=== PATIENT | female | born 1965 | race Caucasian/White ===

== ENCOUNTER 2019-08-10 15:00 | Outpatient (RCR) | payer OTHER, SELFPAY ==
--- NOTE | 2019-07-10 15:18 | PCCPR ---
Marlys called this morning and will be absent due to elevated blood sugar, she stated that her blood sugar was greater than 400 today.
--- NOTE | 2019-07-13 14:58 | PCCPR ---
TAYLOR Frankel called off states she just left her MD and her BS is 343 too high to exercise.
--- NOTE | 2019-07-17 15:11 | PCCPR ---
Absent today, not feeling well.
--- NOTE | 2019-07-24 14:21 | PCCPR ---
Marlys called and said that she will not be able to make it today because her blood sugar is 325, she also has a sinus infection and has an appointment with her doctor Wednesday.
--- NOTE | 2019-08-02 17:03 | PCCPR ---
Marlys not unable to attend today due to blood sugar of 355.
--- NOTE | 2019-08-07 14:13 | PCCPR ---
Absent due to illness elevated BS and she has a sinus infection.
--- NOTE | 2019-08-15 08:12 | PCCPR ---
Marlys called this morning unsure of when she will be able to return. Marlys's grandmother, whom she cares for, is dying and she would like to spend her last days together. Marlys said that it may be after [place] before she returns.
--- NOTE | 2019-08-16 10:54 | PCCPR ---
Absent today & tomorrow-Grandmother last night in her sleep. Plans to be back Wednesday but will keep us posted.
--- NOTE | 2019-08-21 18:18 | PCCPR ---
Marlys called today and said that she was admitted to the hospital recently with chest pain. She was kept overnight and was told that her pain was not cardiac related but could be GI. Marlys is aware that she needs a release to return and is to follow up with Dr. Montalvo next week. She plans to return after the new year with a release.
--- NOTE | 2019-08-31 18:36 | PCCPR ---
Gopal'd from the hospital Marlys called today state was dc'd from the [facility] on 08/29/19. She is now scheduling her out pt apts. She was told she now has stage 3 CKD. In addition to her diabetes CAD and CHF. States she has been feeling depressed with her Grandmother passing away and her continued health challenges. She still is not certain if she will need to move out of the home she currently lives. It was her grandmothers home and income to help support her. Explained we would call her if we receive a release for her to resume rehab. Requested she let us know if she see's her MD and obtain's a release to return.
--- NOTE | 2019-09-06 10:46 | PCCPR ---
Pt called and has an MD apt on 09/12/2019, they will send a release for CR after the apt.
--- NOTE | 2019-09-13 13:53 | PCCPR ---
Marlys called to let us know that it may be another month before she will be able to return. Marlys stated that she does not have kidney disease but may have a problem with her heart valve. She has and appointment with a lease purchase truck driver toward the end of the month and will know more at that time. Will place on hold until we hear otherwise.
--- NOTE | 2019-11-07 09:55 | PCCPR ---
BEVERLY DISCHARGED FROM PROGRAM DUE TO PERSONAL REASONS AND HER INABILITY TO ATTEND.
== END 2019-08-10 23:59 | disposition home or self-care (01) ==
LOC: ANHCPREHAB 15:00
PROVIDERS: Visit Provider Specialist
DX: I25.2 Old myocardial infarction (principal)
CPT/HCPCS: 93798

== ENCOUNTER 2019-10-12 03:23 | Observation (INO) | payer OTHER, SELFPAY ==
[2019-10-12] VITALS (13 sets, daily range): BP systolic 101–133; BP diastolic 47–98; PULSE 75–96; RESP 18–24; TEMP 36.1–36.8; O2SAT 95–100; BMI 30.2
--- NOTE | ~2019-10-12 | XR_ITS ---
EXAMINATION: XR chest 2V DATE: 10/12/2019 04:45 INDICATION: Chest pain TECHNIQUE: PA and lateral views of the chest were obtained. COMPARISON: Chest radiograph dated 08/23/[address] dated 08/20/2019 FINDINGS: Cardiomegaly with pulmonary vascular congestion but without olman pulmonary edema. Mild streaky atele ctasis/scarring at the left lung base with paracardial fat pad accounting for pleural-based opacity l eft costophrenic angle. No pleural effusion or pneumothorax. Median sternotomy wires and mediastinal surgical clips are seen, likely from prior coronary artery bypass grafting. Epicardial pacemaker with 2 leads projecting along the anterior right atrium and 2 along the inferior right ventricle. IMPRESSION: 1. Cardiomegaly with pulmonary vascular congestion but without olman pulmonary edema.. Reviewed, dictated and finalized at location A. 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
--- NOTE | 2019-10-12 03:38 | ED.CHESTPAIN ---
HPI - Chest Pain General Chief Complaint: Chest Pain Stated Complaint: CHEST PAIN Time Seen by Provider: 10/12/19 03:31 Source: patient Mode of arrival: EMS Limitations: no limitations History of Present Illness HPI narrative: Patient is a 53-year-old female who presents to the emergency department via EMS with complaint of chest pain. Patient states she was sitting on the couch and noticed feeling strange. Patient took her blood sugar and it was 344. Patient decided she would go to bed and reports when she got to bed she noticed pain in the left side of her chest going all the way down her left arm to her fingertips. Patient describes sensation of tightness in her chest and pain in her chest like her previous heart attack . Patient reports chronic history of dyspnea on exertion, but is not experiencing dyspnea currently. She denies any nausea or vomiting. MD complaint: chest pain Pertinent past history: coronary artery disease, prior [place] and CABG Timing of current episode: constant Prior episodes: Yes Onset: during rest Pain location: left chest Pain radiation: left arm Severity: similar to previous episodes Quality: tightness and similar to prior [place] Related Data Home Medications Medication Instructions Recorded Confirmed aspirin [Adult Low Dose Aspirin] 81 mg PO DAILY 07/05/19 09/15/19 atorvastatin 40 mg PO HS 07/05/19 09/15/19 citalopram 20 mg PO DAILY PRN 07/05/19 09/15/19 clopidogrel [Plavix] 75 mg PO DAILY 07/05/19 09/15/19 ergocalciferol (vitamin D2) 50,000 unit PO WEEKLY 07/05/19 09/15/19 [Vitamin D2] nitroglycerin [Nitrostat] 0.4 mg SUBLINGUAL Q5-15M PRN 07/05/19 09/15/19 pantoprazole 40 mg PO BID 07/05/19 09/15/19 Basaglar KwikPen U-100 Insulin 15 unit SUBCUT HS 08/20/19 09/15/19 glimepiride 4 mg PO BID 08/20/19 09/15/19 ropinirole 2 mg PO TID 08/20/19 09/15/19 Allergies Allergy/AdvReac Type Severity Reaction Status Date / Time azithromycin Allergy Severe Gastrointestinal Verified 08/24/19 02:48 Upset Review of Systems Review of Systems: All systems reviewed & are unremarkable except as noted in HPI and below Cardiovascular: Cardiovascular: Reports chest pain and Reports dyspnea on exertion Gastrointestinal: Gastrointestinal: Denies nausea and Denies vomiting [facility] Past Medical History Medical History Anemia Anxiety Arthritis CAD (coronary artery disease) Chest pain CHF (congestive heart failure) Depression Diabetes mellitus DVT prophylaxis Dyspepsia GERD (gastroesophageal reflux disease) Headache History of angina History of blood transfusion HLD (hyperlipidemia) HTN (hypertension) Morbid obesity Myocardial infarction x2 OCD (obsessive compulsive disorder) Pacemaker Peripheral neuropathy Previous known suicide attempt Renal disease Seasonal allergies UTI (urinary tract infection) Surgical History Surgical History H/O angioplasty H/O cardiac catheterization H/O heart artery stent History of History of sternectomy Repaired hole in heart Hx of CABG Social History Social History Smoking status: Never smoker Alcohol intake: never Substance use: never Substance use type: does not use Gender identity (if verbalized by the patient): Female Spiritual care concerns: No Agree to blood products: Yes Exam Const: General: cooperative, no acute distress and alert Nutritional Appearance: obese Orientation/consciousness: patient oriented x3 Limitations: no limitations HENMT: Mouth: Yes lip normal and Yes moist mucous membranes Resp: Effort & Inspection: normal respiratory effort Auscultation: clear to auscultation bilaterally Cardio: Rate: regular rate Rhythm: regular rhythm GI: GI Palp: Yes Soft to palpation and No Tenderness to palpation present (GI) Auscultation: normal b
--- NOTE | 2019-10-12 03:39 | ECG_ITS ---
Measurements Intervals [place] Rate: 91 P: [place]: 0 QRS: -52 QRSD: 146 T: 116 QT: 407 QTc: 501 Interpretive Statements ATRIAL SENSE- ELECTRONIC VENTRICULAR PACEMAKER ATRIAL PREMATURE COMPLEXES BASELINE ARTIFACT- I, III, AVR, AVL ATYPICAL ECG Electronically Signed On 10-12-2019 7:04:39 BUS GREASER by Armando Goff D.O.
--- NOTE | 2019-10-12 03:55 | PC.NURSE ---
pt given 1 nitro at this time. rating chest pain 9/10
--- NOTE | 2019-10-12 04:01 | PC.NURSE ---
pt given 2nd nitro at this time. rating pain a 4/10 at this time.
--- NOTE | 2019-10-12 04:07 | PC.NURSE ---
pt reporting pain a 0/10 at this time.
[2019-10-12 04:26] LABS: Basophils Percent Auto 0.4 % (0.2-1.2); Eosinophils Absolute Auto 0.1 K/mm3 (0-0.3); Eosinophils Percent Auto 2.1 % (0-4.4); Immature Granulocyte Absolute 0.01 K/mm3 (0.00-0.031); Immature Granulocyte Percent A 0.2 % (0-0.5); Lymphocytes Absolute Auto 0.87 K/mm3 (0.9-3.2); Lymphocytes Percent Auto 18.3 % (18.3-44.2); Mean Corpuscular HGB Conc 30.8 g/dl (32-36); Mean Corpuscular Hemoglobin 25.5 pg (26-34); Mean Platelet Volume 10.5 fl (7.4-10.4); Monocytes Absolute Auto 0.4 K/mm3 (0.1-0.6); Monocytes Percent Auto 8.8 % (2.6-8.5); Neutrophils Absolute Auto 3.3 K/mm3 (1.3-6.7); Neutrophils Percent Auto 70.2 % (45.5-73.1); Platelet Count Result 252 k/mm3 (150-375); White Blood Count 4.8 K/mm3 (4.5-10.0)
[2019-10-12 04:37] LABS: INR 0.9; Prothrombin Time 11.4 Seconds (11.1-14.7)
[2019-10-12 04:39] LABS: Alanine Aminotransferase 18 U/L (4-35); Alkaline Phosphatase 154 U/L (38-126); Aspartate Amino Transferase 20 U/L (14-36); Bilirubin,Total 0.4 mg/dL (0.2-1.3); Blood Urea Nitrogen 22 mg/dL (7-17); Calcium 8.8 mg/dL (8.4-10.2); Carbon Dioxide 23 mmol/L (22-30); Chloride 98 mmol/L (98-107); Estimated Glomerular Filt Rate 58; Glucose 374 mg/dL (65-105); Lipase 85 U/L (23-300); Potassium 4.4 mmol/L (3.4-5.0); Sodium 136 mmol/L (137-145)
[2019-10-12 04:51] LABS: NT Pro B Type Natriuretic Pept 285 PG/ML (5-100); Troponin I < 0.012 ng/mL (0.000-0.034)
[2019-10-12] MEDS: NITROGLYCERIN OINTMENT 1 INCH DOSE TRANSDERM (05:56)
--- NOTE | 2019-10-12 06:45 | ADMGEN ---
This patient, Marlys Rai, was admitted to IMU Room 211-01. Patient/family oriented to hospital policies and general routines including ID bracelet, bed and alarms, visiting hours, pain management, procedures, bathroom and other care routines, personal items, smoking policy, room service/diet, and visiting hours. Valuables list has been completed. Information on how to activate the Rapid Response Team has been discussed. Patient/Family are encouraged to report perceived risks to care and to ask questions if they do not understand what they are told or what they should do.
[2019-10-12 06:59] LABS: Glucose Point of Care 232 (65-105)
[2019-10-12 07:45] LABS: Troponin I 0.024 ng/mL (0.000-0.034)
[2019-10-12 10:52] LABS: Troponin I 0.059 ng/mL (0.000-0.034)
--- NOTE | 2019-10-12 10:54 | PM.IMHP ---
H&P: HPI History of Present Illness Chief complaint: CHEST PAIN Narrative: Date of visit 999 Marlys Rai is a 53 year old hypertensive type 2 diabetic white female status post biventricular pacer for AV block and history of mitral stenosis and CHF who presented to the emergency room with complaints of chest pain. States she is getting reactive to out of bed last evening when she developed the pressure to sharp sensation across her upper chest radiating to her left arm. She she had no associated shortness of breath nausea or diaphoresis but stated that the discomfort was the same as she had she had her stent placed originally. She got nervous and did not take her nitro and came to the emergency room and pain resolved here. She admits to being very anxious. Initial troponin was negative. Cardiac catheterization 05/18 essentially normal with exception of a diagonal branch of the LAD which had previously been stented and was occluded. It was unable to be opened at that time. She had a ADARSH in August of this year which revealed moderate mitral stenosis with ejection fraction 55%. Review of Systems Review of Systems: Narrative: Constitutional she says she is slowly getting weights that know how much appetite is fine Eye no double vision [place] Mouth of pharyngitis laryngitis Pulmonary no shortness breath wheezing or cough CV as per present illness no palpitation and no pedal edema she has been fighting [place] infection is had some dysuria GI no melena medication diarrhea Muscle skeletal no particular joint discomfort Integument no skin breakdown in this the rash around her perineal and groin Psych admits to being depressed and anxious PMFSH Past Medical History Medical History Anemia Anxiety Arthritis CAD (coronary artery disease) Chest pain CHF (congestive heart failure) Depression Diabetes mellitus DVT prophylaxis Dyspepsia GERD (gastroesophageal reflux disease) Headache History of angina History of blood transfusion HLD (hyperlipidemia) HTN (hypertension) Morbid obesity Myocardial infarction x2 OCD (obsessive compulsive disorder) Pacemaker Peripheral neuropathy Previous known suicide attempt Renal disease Seasonal allergies UTI (urinary tract infection) Surgical History Surgical History H/O angioplasty H/O cardiac catheterization H/O heart artery stent History of History of sternectomy Repaired hole in heart Hx of CABG Social History Social History Smoking status: Never smoker Alcohol intake: never Substance use: never Substance use type: does not use Gender identity (if verbalized by the patient): Female Spiritual care concerns: No Agree to blood products: Yes Meds Home Medications and Allergies Home Medications Medication Instructions Recorded Confirmed Type aspirin [Adult Low Dose Aspirin] 81 mg PO DAILY 07/05/19 10/12/19 History atorvastatin 40 mg PO DAILY 07/05/19 10/12/19 History citalopram 20 mg PO DAILY PRN 07/05/19 10/12/19 History clopidogrel [Plavix] 75 mg PO DAILY 07/05/19 10/12/19 History nitroglycerin [Nitrostat] 0.4 mg SUBLINGUAL Q5-15M PRN 07/05/19 10/12/19 History pantoprazole 40 mg PO BID 07/05/19 10/12/19 History Basaglar KwikPen U-100 Insulin 15 unit SUBCUT HS 08/20/19 10/12/19 History glimepiride 4 mg PO BID 08/20/19 10/12/19 History ropinirole 2 mg PO TID 08/20/19 10/12/19 History lisinopril 2.5 mg PO QAM 30 Days #30 tablet 08/29/19 10/12/19 Rx ferrous sulfate 325 mg PO DAILY 10/12/19 10/12/19 History magnesium oxide 400 mg PO DAILY 10/12/19 10/12/19 History metoprolol tartrate 25 mg PO BID 10/12/19 10/12/19 History Allergies Allergy/AdvReac Type Severity Reaction Status Date / Time azithromycin Allergy Severe Gastrointestinal Verified 08/24/19 02:48 Upset Vital
[2019-10-12 12:20] LABS: Glucose Point of Care 181 (65-105)
--- NOTE | 2019-10-12 15:32 | PM.CNCAR ---
Assessment and Plan Assessment and plan (1) Chest pain: Qualifiers: Chest pain type: unspecified Qualified Code(s): R07.9 - Chest pain, unspecified Code(s): R07.9 - Chest pain, unspecified Status: Acute Assessment and Plan: Atypical chest pain with patient history of known coronary disease previous diagonal branch stent, last catheterization showed occluded stent but the attempted angioplasty was not successful due to small size vessel, she does not seem to have acute event at this time, she has slight elevation of troponin but not Sparkle to indicate any major event, will continue with aspirin and Plavix, p.r.n. nitroglycerin for chest pain. (2) Hypomagnesemia: Code(s): E83.42 - Hypomagnesemia Status: Acute (3) Chronic kidney disease, stage 3: Code(s): N18.3 - Chronic kidney disease, stage 3 (moderate) Status: Chronic (4) CHF (congestive heart failure): Qualifiers: Heart failure chronicity: acute Heart failure type: unspecified Qualified Code(s): I50.9 - Heart failure, unspecified Code(s): I50.9 - Heart failure, unspecified Status: Acute Assessment and Plan: She has history of known mitral valve stenosis last ADARSH showed moderate level of narrowing, medical treatment and close follow-up (5) CAD (coronary artery disease): Qualifiers: Coronary Disease-Associated Artery/Lesion type: ramona artery [place] vs. transplanted heart: ramona heart Associated angina: without angina Qualified Code(s): I25.10 - Atherosclerotic heart disease of ramona coronary artery without angina pectoris Code(s): I25.10 - Atherosclerotic heart disease of ramona coronary artery without angina pectoris Status: Chronic Additional Plan She seems to be stable from cardiac standpoint okay to be discharged home to follow up with me in 1 week. She has to take nitroglycerin p.r.n. for chest pain History of Present Illness History of Present Illness Consult date/time: 10/12/19 15:32 53 years old lady with history of diabetes mellitus, history of sick sinus syndrome status post pacemaker placement, history of mitral valve stenosis, and history of coronary disease previous diagonal branch stent, came to the hospital because of episode of chest pain at home. Start having heaviness the chest all the sudden yesterday lasted for about few minutes but I am sure after the hospital she was pain-free. Noted to have slightly elevated troponin, previously she had episode of chest pain and repeat cardiac catheterization showed totally occluded small diagonal branch with occluded stent with a smaller vessel, at that time attempted angioplasty were attempted and was not successful due to the small size of the vessel. Currently she is pain-free she feels well no significant shortness of breath. No dizziness no lightheadedness, no palpitation. She has history of known moderate mitral valve stenosis, ADARSH recently showed valve area of 1.2 centimeter squared, with mild pulmonary hypertension. She has mild leg swelling but no recent changes no orthopnea Reason For Visit: CHEST PAIN Review of Systems Constitutional: Constitutional: Reports fatigue and Reports lethargy Cardiovascular: Cardiovascular: Reports as per HPI Respiratory: Respiratory: Reports dyspnea Gastrointestinal: Gastrointestinal: Reports as per HPI [facility] Past Medical History Medical History Anemia Anxiety Arthritis CAD (coronary artery disease) Chest pain CHF (congestive heart failure) Depression Diabetes mellitus DVT prophylaxis Dyspepsia GERD (gastroesophageal reflux disease) Headache History of angina History of blood transfusion HLD (hyperlipidemia) HTN (hypertension) Morbid obesity Myocardial infarction x2 OCD (obsessive compulsive disorder) Pacemaker Peripheral neuropathy Previous known suicide attempt Renal disease Seasonal allergies
[2019-10-12] MEDS: ATORVASTATIN 20 MG TABLET 40 MG PO (15:49)
[2019-10-12] MEDS: ASPIRIN 81 MG ENTERIC TABLET PO (15:49)
[2019-10-12] MEDS: CLOPIDOGREL BISULFATE 75 MG TABLET PO (15:49)
[2019-10-12] MEDS: lisinopriL 2.5 MG TABLET PO (15:49)
[2019-10-12] MEDS: METOPROLOL TARTRATE 25 MG TABLET PO (15:50)
[2019-10-12] MEDS: FLUCONAZOLE 150 MG TABLET PO (15:51)
[2019-10-12] MEDS: PANTOPRAZOLE 40 MG TABLET PO (15:51)
--- NOTE | 2019-10-14 17:19 | PM.DS ---
DS: Diagnosis Admitting Diagnosis Admitting Diagnosis: Chest pain, unspecified Discharge Diagnosis (1) Chest pain: Qualifiers: Chest pain type: unspecified Qualified Code(s): R07.9 - Chest pain, unspecified Code(s): R07.9 - Chest pain, unspecified Status: Acute Assessment and Plan: Initial troponin is negative but 2nd 3rd have slowly risen. EKG paced rhythms and there was no change there. Her last cardiac catheterization was fairly benign other than occluded stent but with rising troponin got opinion from Cardiology and they felt was atypical non cardiac pain Continue beta-sangeetha ESTELLE-inhibitor statin and aspirin nitro prn also. (2) HTN (hypertension): Qualifiers: Hypertension type: essential hypertension Qualified Code(s): I10 - Essential (primary) hypertension Code(s): I10 - Essential (primary) hypertension Status: Chronic Assessment and Plan: Pressure well controlled continue her beta-sangeetha and ESTELLE-inhibitor (3) CHF (congestive heart failure): Qualifiers: Heart failure chronicity: acute Heart failure type: unspecified Qualified Code(s): I50.9 - Heart failure, unspecified Code(s): I50.9 - Heart failure, unspecified Status: Acute Assessment and Plan: compensated at present time continue the beta-sangeetha and ESTELLE-inhibitor (4) Diabetes mellitus: Qualifiers: Diabetes mellitus type: type 2 Diabetes mellitus ferry terminal supervisor insulin use: with ferry terminal supervisor use Diabetes mellitus complication status: without complication Qualified Code(s): E11.9 - Type 2 diabetes mellitus without complications; Z79.4 - prison (current) use of insulin Code(s): E11.9 - Type 2 diabetes mellitus without complications Status: Chronic Assessment and Plan: Blood sugar slightly elevated as has been. Continue the long-acting insulin (5) GERD (gastroesophageal reflux disease): Qualifiers: Esophagitis presence: esophagitis presence not specified Qualified Code(s): K21.9 - Gastro-esophageal reflux disease without esophagitis Code(s): K21.9 - Gastro-esophageal reflux disease without esophagitis Status: Chronic Assessment and Plan: Continue PPI (6) Morbid obesity: Code(s): E66.01 - Morbid (severe) obesity due to excess calories Status: Chronic Assessment and Plan: Encourage weight loss DS: Summary Hospital Course Hospital Course: 53-year-old type 2 diabetic with known mild coronary disease admitted with chest pain that was atypical. Had mild bump in her troponin but her previous anatomy was benign except for a 2nd diagonal which was occluded. Seen by Cardiology and felt the pain was atypical and suggest to continue on her usual cardiac meds She will follow-up with cardiology Time Spent with Patient Time attestation: Total time spent providing and/or coordinating discharge services: 35 minutes Exam Narrative: Exam Narrative: Condition on discharge Blood pressure 104/70 pulse is 80 Lungs are clear CV regular rate rhythm no murmurs Abdomen benign Extremities without edema good distal pulses No further chest pain taken and diet well up and about independently Discharge Plan Discharge Attending physician on discharge: Maxim Burdick Consulting providers: Reza Montalvo Discharging Clinician: Maxim Burdick Patient Disposition: Home, Self-Care Activity: as tolerated Diet: diabetic, low sodium and low cholesterol Patient Instructions: Antibiotic Form Stand Alone Forms: General Discharge Information Follow-up/Referrals: Reza Montalvo MD [Physician] - Keep Reg. Scheduled Appt. UNKNOWN,DOCTOR [Primary Care Provider] - 2 Weeks (primary) Discharge Medications: New tolnaftate 1 % Powder 1 applic topical Q12HR Qty: 60 RF: 0 Continued atorvastatin 20 mg Tablet 40 mg PO DAILY RF: 0 clopidogrel [Plavix] 75 mg Tablet
== END 2019-10-12 16:23 | disposition home or self-care (01) ==
LOC: ANHED 03:44 → ANHIMU 06:37
PROVIDERS: Admitting Provider Hospitalist; Emergency Provider Emergency Medicine; Visit Provider Internal Medicine
DX: R07.89 Other chest pain (principal); I13.0 Hypertensive heart and chronic kidney disease with heart failure and stage 1 through stage 4 chronic kidney disease, or unspecified chronic kidney disease; E11.22 Type 2 diabetes mellitus with diabetic chronic kidney disease; N18.3 Chronic kidney disease, stage 3 (moderate); I50.9 Heart failure, unspecified; I05.0 Rheumatic mitral stenosis; I25.10 Atherosclerotic heart disease of native coronary artery without angina pectoris; I25.2 Old myocardial infarction; E83.42 Hypomagnesemia; E11.42 Type 2 diabetes mellitus with diabetic polyneuropathy; K21.9 Gastro-esophageal reflux disease without esophagitis; E66.01 Morbid (severe) obesity due to excess calories; Z68.30 Body mass index [BMI] 30.0-30.9, adult; E78.5 Hyperlipidemia, unspecified; Z95.5 Presence of coronary angioplasty implant and graft; Z79.82 Long term (current) use of aspirin; Z79.899 Other long term (current) drug therapy; Z79.4 Long term (current) use of insulin; Z95.0 Presence of cardiac pacemaker; Z95.1 Presence of aortocoronary bypass graft
CPT/HCPCS: 36415; 71046; 80053; 83690; 83880; 84484; 85025; 85610; 85730; 93005; 99285; A9270; G0378; G0379

== ENCOUNTER 2019-11-14 08:55 | Emergency (ER) | payer OTHER, SELFPAY ==
--- NOTE | ~2019-11-14 | XR_ITS ---
EXAMINATION: XR chest 2V EXAM DATE: 11/14/2019 10:35 INDICATION: Cough, wheezing. TECHNIQUE: Frontal and lateral projections of the chest obtained and reviewed. Comparison is made to prior examination from 10/12/2019. FINDINGS: Sternotomy wires are present without findings to suggest sternal dehiscence. The lungs are clear. There are no pleural effusions. There is mild cardiomegaly. Cardiac device with leads. There is no pneumothorax suspected. The bones and soft tissues are unremarkable. IMPRESSION: Mild cardiomegaly. Reviewed, dictated and finalized at location A. IMPRESSION: Mild cardiomegaly.
[2019-11-14 09:08] VITALS: BP 127/75; PULSE 96; RESP 18; TEMP 36.4; O2SAT 97
[2019-11-14 09:15] VITALS: O2SAT 99
--- NOTE | 2019-11-14 10:11 | ECG_ITS ---
Measurements Intervals [place] Rate: 75 P: 15 [place]: 199 QRS: -50 QRSD: 181 T: 97 QT: 469 QTc: 525 Interpretive Statements ELECTRONIC ATRIAL PACEMAKER WITH INHIBITION ELECTRONIC VENTRICULAR PACEMAKER BASELINE ARTIFACT- I, II, III, AVR, AVL NO FURTHER INTERPRETATION IS POSSIBLE ATYPICAL ECG Electronically Signed On 11-14-2019 10:37:04 CDT by rAmando Goff D.O.
--- NOTE | 2019-11-14 10:11 | ED.GENADULT ---
HPI - General Adult General Chief complaint: Upper Respiratory Infection Stated complaint: EARACHE/WHEEZING Time Seen by Provider: 11/14/19 09:18 History of Present Illness HPI narrative: This is a 53-year-old female who presents the emergency department for complaint of I feel like I have congestive heart failure and pneumonia in both my ears hurt . Patient reports a 3-day history of audible wheezing, productive cough of brown sputum, bilateral ear pain, sore throat, rhinorrhea. She denies any fever or chills, difficulty breathing, edema to the lower extremities, chest pain. Related Data Home Medications Medication Instructions Recorded Confirmed aspirin [Adult Low Dose Aspirin] 81 mg PO DAILY 07/05/19 10/12/19 atorvastatin 40 mg PO DAILY 07/05/19 10/12/19 citalopram 20 mg PO DAILY PRN 07/05/19 10/12/19 clopidogrel [Plavix] 75 mg PO DAILY 07/05/19 10/12/19 nitroglycerin [Nitrostat] 0.4 mg SUBLINGUAL Q5-15M PRN 07/05/19 10/12/19 pantoprazole 40 mg PO BID 07/05/19 10/12/19 Basaglar KwikPen U-100 Insulin 15 unit SUBCUT HS 08/20/19 10/12/19 glimepiride 4 mg PO BID 08/20/19 10/12/19 ropinirole 2 mg PO TID 08/20/19 10/12/19 ferrous sulfate 325 mg PO DAILY 10/12/19 10/12/19 magnesium oxide 400 mg PO DAILY 10/12/19 10/12/19 metoprolol tartrate 25 mg PO BID 10/12/19 10/12/19 Allergies Allergy/AdvReac Type Severity Reaction Status Date / Time azithromycin Allergy Severe Gastrointestinal Verified 11/14/19 09:10 Upset Review of Systems Review of Systems: Narrative: CONSTITUTIONAL: Denies fever, chills, or sweats. EYES: Denies visual changes, redness, or discharge. ENT: reports rhinorrhea,intermittent sore throat, bilat ear aches. denies changes in hearing or drainage from ears. CARDIOVASCULAR: Denies chest pain, palpitations, or edema. RESPIRATORY: Reports cough, denies SOB, reports hearing self wheeze. GASTROINTESTINAL: Denies abdominal pain or diarrhea. Reports nausea without vomiting. GENITOURINARY: Denies dysuria or hematuria. SKIN: Denies rash or itching. MUSCULOSKELETAL: Denies back pain, joint pain, or myalgias. NEUROLOGIC: Denies headache, numbness, or weakness. PSYCHIATRIC: Hx anxiety and depression. ON LICENSE OF [facility] Past Medical History Medical History Anemia Anxiety Arthritis CAD (coronary artery disease) Chest pain CHF (congestive heart failure) Depression Diabetes mellitus DVT prophylaxis Dyspepsia GERD (gastroesophageal reflux disease) Headache History of angina History of blood transfusion HLD (hyperlipidemia) HTN (hypertension) Morbid obesity Myocardial infarction x2 OCD (obsessive compulsive disorder) Pacemaker Peripheral neuropathy Previous known suicide attempt Renal disease Seasonal allergies UTI (urinary tract infection) Surgical History Surgical History H/O angioplasty H/O cardiac catheterization H/O heart artery stent History of History of permanent cardiac pacemaker placement History of sternectomy Repaired hole in heart Hx of CABG S/P VSD closure Family History Family History Mother Peripheral vascular disease Social History Social History Smoking status: Never smoker Alcohol intake: never Substance use: never Substance use type: does not use Gender identity (if verbalized by the patient): Female Spiritual care concerns: No Agree to blood products: Yes Exam Narrative: Exam Narrative: GENERAL: Well-appearing, well-nourished, and in no acute distress. HEAD: Normocephalic, atraumatic. EYES: sclera anicteric, no drainage ENT: Nares clear, minimum clear rhinorrhea bilat. Mucous membranes moist. TTP over frontal sinuses. Bilat TMs without erythema/retraction, mild bulging RT TM. Landmarks visualized bilat. NECK: Supple. No LAD CHEST: C
[2019-11-14 10:43] VITALS: BP 107/57; PULSE 78; RESP 16; O2SAT 97
--- NOTE | 2019-11-14 11:00 | PC.NURSE ---
PT REPORT GIVEN TO JOHN SAWYER AT THIS TIME, SHE HAS ASSUMED PT CARE.
[2019-11-14] MEDS: ONDANSETRON HCL ODT 4 MG TABLET PO (11:06)
[2019-11-14 11:51] VITALS: BP 109/80; PULSE 89; RESP 19; O2SAT 100
== END 2019-11-14 11:53 | disposition home or self-care (01) ==
DX: J01.90 Acute sinusitis, unspecified (principal); B97.89 Other viral agents as the cause of diseases classified elsewhere; D64.9 Anemia, unspecified; M19.90 Unspecified osteoarthritis, unspecified site; I25.10 Atherosclerotic heart disease of native coronary artery without angina pectoris; I11.0 Hypertensive heart disease with heart failure; I50.9 Heart failure, unspecified; E11.9 Type 2 diabetes mellitus without complications; K21.9 Gastro-esophageal reflux disease without esophagitis; E78.5 Hyperlipidemia, unspecified; F32.9 Major depressive disorder, single episode, unspecified; F41.9 Anxiety disorder, unspecified; I25.2 Old myocardial infarction; E66.01 Morbid (severe) obesity due to excess calories; Z68.34 Body mass index [BMI] 34.0-34.9, adult; F42.9 Obsessive-compulsive disorder, unspecified; N28.9 Disorder of kidney and ureter, unspecified; Z95.0 Presence of cardiac pacemaker; Z87.440 Personal history of urinary (tract) infections; Z95.5 Presence of coronary angioplasty implant and graft; Z95.1 Presence of aortocoronary bypass graft; Z79.82 Long term (current) use of aspirin; Z79.4 Long term (current) use of insulin; Z79.02 Long term (current) use of antithrombotics/antiplatelets
CPT/HCPCS: 71046; 93005; 99283; A9270

== ENCOUNTER 2020-01-13 11:00 | Inpatient (IN) | payer OTHER, SELFPAY ==
--- NOTE | ~2020-01-13 | CT_ITS ---
EXAMINATION: CTA brain carotid DATE: 01/17/2020 18:33 INDICATION: Suspected transient ischemic attack TECHNIQUE: Computed tomographic angiography (CTA) of the head was performed without and with 100 mL O mnipaque-350 intravenous contrast. CTA of the neck was performed with intravenous contrast. The dose- length product was 1719.35 mGy-cm. Maximum intensity projection and volume rendered 3D-reconstruction s were created by the technologist on a separate workstation. Automated exposure control and iterativ e reconstruction technique were employed. COMPARISON: None. FINDINGS: HEAD CTA: There is no intracranial hemorrhage, acute infarction, or abnormal mass lesion. The ventri cles are normal. There is no abnormal mass effect or midline shift. The [place]-white matter differentia tion is normal. The basal cisterns are patent. The orbits are normal. The paranasal sinuses, mastoids and calvarium are normal. There is no significant stenosis of the basilar artery or posterior cerebral arteries. There is no si gnificant stenosis of the intracranial internal carotid arteries or the anterior or middle cerebral a rteries. The anterior communicating artery and posterior communicating arteries are normal. There is no aneurysm. The right vertebral artery is hypoplastic. NECK CTA: The neck soft tissues are normal. The right vertebral artery is hypoplastic compared to the left. There are no pathologically enlarged lymph nodes. The visualized lung apices are clear. There is 0% stenosis of the proximal right internal carotid artery relative to normal distal artery l umen diameter (NASCET criteria). There is 0% stenosis of the proximal left internal carotid artery re lative to normal distal artery lumen diameter. IMPRESSION: 1. No acute intracranial abnormality. Normal head CTA. 2. 0% stenosis of the proximal right internal carotid artery relative to normal distal artery lumen d iameter (NASCET criteria). 3. 0% stenosis of the proximal left internal carotid artery relative to normal distal artery lumen di ameter. Reviewed, dictated and finalized at location A. IMPRESSION: 1. No acute intracranial abnormality. Normal head CTA. 2. 0% stenosis of the proximal right internal carotid artery relative to normal distal artery lumen diameter (NASCET criteria). 3. 0% stenosis of the proximal left internal carotid artery relative to normal distal artery lumen diameter.
--- NOTE | ~2020-01-13 | CT_ITS ---
EXAMINATION: CT facial bones w con DATE: 01/13/2020 13:07 INDICATION: Right-sided facial swelling TECHNIQUE: Computed tomography (CT) of the facial bones and maxillofacial region was performed with 7 5 cc of Omnipaque 350 intravenous contrast. The dose-length product (DLP) was 502.72 mGy-cm. Automate d exposure control and iterative reconstruction technique were employed. COMPARISON: None. FINDINGS: There is mild asymmetric enlargement of the right parotid gland when compared to the left. Subtle edematous stranding is seen adjacent to the right parotid gland as well. There is an increase in size of nonpathologically enlarged lymph nodes in and adjacent to the right parotid gland. No absc ess or phlegmon is identified. Mildly prominent right internal jugular chain lymph node is also noted . The airway is patent. The osseous structures are unremarkable. There is partial opacification of th e right mastoid air cells. The orbits are unremarkable. IMPRESSION: 1. Mild asymmetric enlargement of the right parotid gland compared to the left, likely reflecting par otiditis. Reviewed, dictated and finalized at location A. IMPRESSION: 1. Mild asymmetric enlargement of the right parotid gland compared to the left, likely reflecting parotiditis.
[2020-01-13 11:27] VITALS: BP 119/83; PULSE 92; RESP 12; TEMP 37.2; O2SAT 100
[2020-01-13] MEDS: SODIUM CHLORIDE 0.9% IV 1,000 ML 999 ML IV CONT (11:46)
--- NOTE | 2020-01-13 11:54 | ED.GENADULT ---
HPI - General Adult General Chief complaint: Wound/Laceration <NYA Lamar Last Filed: 01/13/20 14:06> Stated complaint: WOUND TO FACE <NYA Lamar Last Filed: 01/13/20 14:06> Time Seen by Provider: 01/13/20 11:04 <NYA Lamar Last Filed: 01/13/20 14:06> Source: patient <NYA Lamar Last Filed: 01/13/20 14:06> Mode of arrival: ambulatory <NYA Lamar Last Filed: 01/13/20 14:06> Limitations: no limitations <NYA Lamar Last Filed: 01/13/20 14:06> History of Present Illness HPI narrative: Patient in the room presenting with facial swelling for the last couple of days localized to the right cheek noting moderate aching pain worse with this morning noting red tender swollen area to the right cheek worse with palpation patient also notes an episode of emesis this morning. Patient denies similar occurrence in the past. <NYA Lamar Last Filed: 01/13/20 14:06> Related Data Home medications: Home Medications Medication Instructions Recorded Confirmed aspirin [Adult Low Dose Aspirin] 81 mg PO DAILY 07/05/19 01/13/20 atorvastatin 40 mg PO DAILY 07/05/19 01/13/20 citalopram 20 mg PO DAILY 07/05/19 01/13/20 clopidogrel [Plavix] 75 mg PO DAILY 07/05/19 01/13/20 nitroglycerin [Nitrostat] 0.4 mg SUBLINGUAL Q5-15M PRN 07/05/19 01/13/20 pantoprazole 40 mg PO BID 07/05/19 01/13/20 Basaglstefania Castillo U-100 Insulin 15 unit SUBCUT HS 08/20/19 01/13/20 glimepiride 4 mg PO BID 08/20/19 01/13/20 ropinirole 2 mg PO TID 08/20/19 01/13/20 magnesium oxide 400 mg PO DAILY 10/12/19 01/13/20 metoprolol tartrate 25 mg PO BID 10/12/19 01/13/20 lisinopril 2.5 mg PO DAILY 01/13/20 01/13/20 <Pedro Kirk PA-C - Last Filed: 01/13/20 14:06> Allergies/adverse reactions: Allergies Allergy/AdvReac Type Severity Reaction Status Date / Time azithromycin Allergy Severe Gastrointestinal Verified 11/14/19 09:10 Upset <Pedro Kirk PA-C - Last Filed: 01/13/20 14:06> Review of Systems Review of Systems: All systems reviewed & are unremarkable except as noted in HPI and below <Pedro Kirk PA-C - Last Filed: 01/13/20 14:06> [facility] Past Medical History Medical History: Medical History (Updated 01/13/20 @ 16:38 by Kat Monroe PA-C) Anemia With history of blood transfusion. AV block Status post atrial pacemaker insertion. CHF (congestive heart failure) Coronary artery disease (~11/2017) Cardiac catheterization per Dr. Montalvo demonstrated distal 1st diagonal vessel total occlusion status post angioplasty and stent placement. Depression with anxiety Diabetic peripheral neuropathy Eczema Gastroesophageal reflux disease Hyperlipidemia Hypertension Insulin dependent type 2 diabetes mellitus 9.8% in July 2019. Myocardial infarction x2 Osteoarthritis Previous known suicide attempt Restless leg syndrome Seasonal allergies Septal defect Patient on certain whether this was an ASD or VSD repair, done at the age of 39. Valvular heart disease Status post mitral valve repair. ADARSH September 18, 2019 showed moderate to severe mitral valve calcification with decreased movement and evidence of moderate mitral valve regurgitation. Vitamin D deficiency <Pedro Kirk PA-C - Last Filed: 01/13/20 14:06> Surgical History Surgical History: Surgical History (Updated 01/13/20 @ 16:34 by Kat Monroe PA-C) History of History of cardiac catheterization (~11/2017) Status post angioplasty and stent placement to distal 1st diagonal per Dr. Montalvo. History of permanent cardiac pacemaker placement History of sternectomy Repaired hole in heart, patient unsure whether it was in atrial or ventricular septal defect. Hx of CABG S/P VSD closure <Pedro Kirk PA-C - Last Filed: 01/13/20 14:06> Family History Family History: Family History (Updated 12/28
[2020-01-13 11:57] LABS: Basophils Percent Auto 0.2 % (0.2-1.2); Eosinophils Absolute Auto 0.1 K/mm3 (0-0.3); Eosinophils Percent Auto 1.7 % (0-4.4); Hematocrit 40.2 % (37.0-47.0); Hemoglobin 13.2 g/dL (12.0-15.0); Immature Granulocyte Absolute 0.02 K/mm3 (0.00-0.031); Immature Granulocyte Percent A 0.4 % (0-0.5); Lymphocytes Absolute Auto 0.71 K/mm3 (0.9-3.2); Lymphocytes Percent Auto 13.1 % (18.3-44.2); Mean Corpuscular HGB Conc 32.8 g/dl (32-36); Mean Corpuscular Hemoglobin 28.9 pg (26-34); Mean Corpuscular Volume 88.2 fl (80-100); Mean Platelet Volume 10.9 fl (7.4-10.4); Monocytes Absolute Auto 0.5 K/mm3 (0.1-0.6); Monocytes Percent Auto 9.1 % (2.6-8.5); Neutrophils Absolute Auto 4.1 K/mm3 (1.3-6.7); Neutrophils Percent Auto 75.5 % (45.5-73.1); Platelet Count Result 239 k/mm3 (150-375); Red Blood Count 4.56 M/mm3 (4.2-5.4); Red Cell Distribution Width 13.8 % (11.5-14.5); White Blood Count 5.4 K/mm3 (4.5-10.0)
[2020-01-13 12:12] LABS: Alanine Aminotransferase 16 U/L (4-35); Albumin Level 4.2 g/dL (3.5-5.1); Alkaline Phosphatase 144 U/L (38-126); Aspartate Amino Transferase 19 U/L (14-36); Blood Urea Nitrogen 21 mg/dL (7-17); Calcium 8.8 mg/dL (8.4-10.2); Carbon Dioxide 27 mmol/L (22-30); Chloride 101 mmol/L (98-107); Estimated CRCL calculation 60 ml/min; Estimated Glomerular Filt Rate 57; Glucose 244 mg/dL (65-105); Magnesium 1.3 mg/dL (1.6-2.3); Phosphorus 4.8 mg/dL (2.5-4.5); Potassium 4.5 mmol/L (3.4-5.0); Sodium 137 mmol/L (137-145)
[2020-01-13 12:17] LABS: Beta-Hydroxybutyrate/Acetoacetate 0.08 mmol/L (0.02-0.27)
[2020-01-13 12:25] LABS: Glucose Point of Care 220 (65-105)
[2020-01-13] MEDS: MAGNESIUM SULF 2 GM/WATER 50ML 2 GM/50 ML BAG IVPB (12:38)
[2020-01-13 12:54] LABS: Add Urine Microscopic? YES; Appearance Urine Cloudy (Clear); Bacteria Urine Trace /hpf; Bilirubin Urine Negative (Negative); Blood Urine 1+ (Negative); Color Urine Straw (Yellow); Glucose Urine UA Negative (Negative); Ketones Urine Negative (Negative); Leukocyte Esterase Ur Negative LEU/UL (Negative); Mucus Urine Rare /lpf; Nitrate Urine Negative (Negative); Protein Urine Negative (Negative); RBC Urine 0-2 /hpf (0-2); Specific Grav Ur 1.016 (1.001-1.035); Squamous Epithelial Cell Urine Many /hpf (Few); Urobilinogen Urine Negative mg/dL (<2.0); WBC Urine 0-3 /hpf
[2020-01-13] MEDS: FAMOTIDINE 20 MG/2 ML VIAL IV PUSH (13:38)
[2020-01-13] MEDS: SODIUM CHLORIDE 0.9% IV 1,000 ML 500 ML IV CONT (13:38)
[2020-01-13] MEDS: ONDANSETRON INJ 4 MG/2 ML VIAL IV PUSH (13:38)
[2020-01-13 14:37] VITALS: BP 114/74; PULSE 100; RESP 16; O2SAT 99
--- NOTE | 2020-01-13 14:46 | PC.NURSE ---
This patient, Marlys Rai, was admitted to Medical Room 249-01. Patient/family oriented to hospital policies and general routines including ID bracelet, bed and alarms, visiting hours, pain management, procedures, bathroom and other care routines, personal items, smoking policy, room service/diet, and visiting hours. Valuables list has been completed. Information on how to activate the Rapid Response Team has been discussed. Patient/Family are encouraged to report perceived risks to care and to ask questions if they do not understand what they are told or what they should do.
[2020-01-13 15:19] VITALS: BP 100/58; PULSE 68; RESP 20; TEMP 36.2; O2SAT 93; BMI 33.3
--- NOTE | 2020-01-13 16:00 | PM.IMHP ---
H&P: HPI History of Present Illness Chief complaint: Right facial rash. Narrative: Marlys Rai is a 54-year-old female with multiple medical problems to include coronary artery disease, type 2 diabetes mellitus, hypertension, and several other comorbidities who presented to the emergency department earlier today for evaluation of a right facial rash. Three days ago she noticed a red, pruritic patch in the right preauricular region. She describes a sort of burning pain at the site, and she initially thought it was a reaction the hair dyed that she had used the previous night. Over the last 2 days however the area has increased in size and has become edematous and increasingly erythematous. Additionally, she complains of a vague pain about the right jaw and ear. It seems to be worse with chewing and palpation. She does mention having poor dentition, with several cracked teeth and dental caries and in fact is supposed to have the remaining 8 teeth in her lower jaw extracted. Facial CT demonstrated findings of parotiditis and she is being admitted in this setting. She denies fever, chills, and sweats. She had nausea and 1 episode of emesis this morning, but is now hungry and is eating dinner at the time of my evaluation. She is not having any acute dental pain. She has no history of prostatitis or MRSA skin infection. Review of Systems Review of Systems: Narrative: Twelve systems were reviewed with pertinent positives and negatives as per HPI. She has noticed minor swelling along the right lower eyelid, but denies visual changes. No pain with extraocular motions. No discharge from Stensen's duct. She denies chest pain shortness of breath. No cough. No recent travel or sick contacts. She believes her diabetes is well controlled. She denies polydipsia, polyuria, and blurry vision. She does suffer from pretty significant neuropathy in her hands and feet. No history of C diff. Except as documented, all other systems were reviewed and are negative. [facility] Past Medical History Medical History (Updated 01/13/20 @ 19:23 by Kat Monreo PA-C) Anemia With history of blood transfusion. AV block Status post atrial pacemaker insertion. CHF (congestive heart failure) Coronary artery disease (~11/2017) Cardiac catheterization per Dr. Montalvo demonstrated distal 1st diagonal vessel total occlusion status post angioplasty and stent placement. Depression with anxiety Diabetic peripheral neuropathy Eczema Gastroesophageal reflux disease Hyperlipidemia Hypertension Insulin dependent type 2 diabetes mellitus Hemoglobin A1c was 9.8% in July 2019. Myocardial infarction x2 Osteoarthritis Previous known suicide attempt Restless leg syndrome Seasonal allergies Septal defect Patient on certain whether this was an ASD or VSD repair, done at the age of 39. Valvular heart disease Status post mitral valve repair. ADARSH September 18, 2019 showed moderate to severe mitral valve calcification with decreased movement and evidence of moderate mitral valve regurgitation. Vitamin D deficiency Surgical History Surgical History (Updated 01/13/20 @ 19:13 by Kat Monroe PA-C) History of History of cardiac catheterization (~11/2017) Status post angioplasty and stent placement to distal 1st diagonal per Dr. Montalvo. History of permanent cardiac pacemaker placement History of sternectomy Repaired hole in heart, patient unsure whether it was in atrial or ventricular septal defect. Family History Family History (Updated 01/13/20 @ 16:34 by Kat Monroe PA-C) Mother Peripheral vascular disease Sibling Diabetes mellitus Social History Social History (Updated 01/13/20 @ 16:35 by Kat Monroe PA-C) Social History: The patient lives in [place], [place] with her mother. She is on disability. She is a lifelong nonsmoker and denies alcohol and drug abuse. She designates her mother, Stacie Sanchez, as her surrogate paolaaristeosvetlana
[2020-01-13 16:05] LABS: Glucose Point of Care 198 (65-105)
[2020-01-13 16:31] LABS: Glucose Point of Care 182 (65-105)
[2020-01-13] MEDS: LACTATED RINGERS 1,000 ML 125 ML IV CONT (17:18)
[2020-01-13 18:00] VITALS: BP 102/52; PULSE 75; RESP 18; TEMP 36.1; O2SAT 94
[2020-01-13 20:00] VITALS: BP 111/68; PULSE 72; RESP 18; TEMP 36.9; O2SAT 100
[2020-01-13 20:25] VITALS: PULSE 75
[2020-01-13] MEDS: PANTOPRAZOLE 40 MG TABLET PO (20:25)
[2020-01-13] MEDS: METOPROLOL TARTRATE 25 MG TABLET PO (20:25)
[2020-01-13] MEDS: INSULIN GLARGINE (*BKC) 100 UNITS/ML 15 UNITS SUB-Q (20:26)
[2020-01-13 21:01] LABS: Glucose Point of Care 212 (65-105)
[2020-01-14] VITALS (9 sets, daily range): BP systolic 103–124; BP diastolic 54–84; PULSE 68–87; RESP 16–20; TEMP 36.2–36.7; O2SAT 94–96
[2020-01-14] MEDS: LACTATED RINGERS 1,000 ML 125 ML IV CONT (01:54)
[2020-01-14 05:21] LABS: Basophils Percent Auto 0.3 % (0.2-1.2); Hematocrit 35.5 % (37.0-47.0); Hemoglobin 11.4 g/dL (12.0-15.0); Immature Granulocyte Absolute 0.01 K/mm3 (0.00-0.031); Immature Granulocyte Percent A 0.3 % (0-0.5); Lymphocytes Percent Auto 10.2 % (18.3-44.2); Mean Corpuscular HGB Conc 32.1 g/dl (32-36); Mean Corpuscular Hemoglobin 28.4 pg (26-34); Mean Corpuscular Volume 88.5 fl (80-100); Mean Platelet Volume 10.7 fl (7.4-10.4); Monocytes Absolute Auto 0.3 K/mm3 (0.1-0.6); Monocytes Percent Auto 6.9 % (2.6-8.5); Neutrophils Absolute Auto 3.2 K/mm3 (1.3-6.7); Neutrophils Percent Auto 81.3 % (45.5-73.1); Platelet Count Result 197 k/mm3 (150-375); Red Blood Count 4.01 M/mm3 (4.2-5.4); Red Cell Distribution Width 13.7 % (11.5-14.5); White Blood Count 3.9 K/mm3 (4.5-10.0)
[2020-01-14 05:33] LABS: Hemoglobin A1C 10.6 % (<5.7)
[2020-01-14 05:36] LABS: Blood Urea Nitrogen 16 mg/dL (7-17); Calcium 8.4 mg/dL (8.4-10.2); Carbon Dioxide 23 mmol/L (22-30); Chloride 105 mmol/L (98-107); Estimated CRCL calculation 56 ml/min; Estimated Glomerular Filt Rate > 60; Glucose 214 mg/dL (65-105); Potassium 4.5 mmol/L (3.4-5.0); Sodium 135 mmol/L (137-145)
[2020-01-14 08:05] LABS: Glucose Point of Care 171 (65-105)
[2020-01-14] MEDS: CITALOPRAM HYDROBROMIDE 20 MG TABLET PO (08:17)
[2020-01-14] MEDS: ASPIRIN 81 MG ENTERIC TABLET PO (08:17)
[2020-01-14] MEDS: lisinopriL 2.5 MG TABLET PO (08:18)
[2020-01-14] MEDS: METOPROLOL TARTRATE 25 MG TABLET PO ×2 (08:18→21:54)
[2020-01-14] MEDS: MAGNESIUM OXIDE 400 MG TABLET PO (08:18)
[2020-01-14] MEDS: CLOPIDOGREL BISULFATE 75 MG TABLET PO (08:18)
[2020-01-14] MEDS: PANTOPRAZOLE 40 MG TABLET PO ×2 (08:19→21:56)
[2020-01-14] MEDS: GLIMEPIRIDE 2 MG TABLET 4 MG PO ×2 (08:20→16:44)
[2020-01-14 08:31] LABS: Magnesium 1.5 mg/dL (1.6-2.3)
[2020-01-14 11:40] LABS: Glucose Point of Care 198 (65-105)
--- NOTE | 2020-01-14 12:39 | P.PNIM_ITS ---
Progress Note: A&P Assessment and Plan (1) Parotiditis: Code(s): K11.20 - Sialoadenitis, unspecified Status: Acute Assessment and Plan: * She has been started on vancomycin and imipenem. * No evidence of sialolith on imaging. 01/14/20 12:39 With history of hypertension, diabetes and coronary artery disease as well as poor dentition presented emergency department with a complaint right maxillary facial rash which started about 2-3 days ago and progressively getting worse, describes burning sensation along the rash, patient denies any fever or chills, patient was started on vancomycin and imipenem, patient states feeling better denies any visual problem denies any fever or chills (2) Erysipelas: Code(s): A46 - Erysipelas Status: Acute Assessment and Plan: * She has findings of facial erysipelas, which could be due to reactive edema and inflammation from the parotiditis. * Continue vancomycin and imipenem as above. (3) Hypomagnesemia: Code(s): E83.42 - Hypomagnesemia Status: Acute Assessment and Plan: * Magnesium will be replaced and monitored. (4) Insulin dependent type 2 diabetes mellitus: Code(s): E11.9 - Type 2 diabetes mellitus without complications; Z79.4 - salvage determiner (current) use of insulin Status: Acute Assessment and Plan: * Patient with uncontrolled diabetes with hemoglobin A1c of 10.6 will have development educator consult the patient * Initiate sliding scale insulin, Accu-Cheks, and hypoglycemic protocol. (5) Hypertension: Qualifiers: Hypertension type: essential hypertension Qualified Code(s): I10 - Essential (primary) hypertension Code(s): I10 - Essential (primary) hypertension Status: Acute Assessment and Plan: * Blood pressures were reviewed and they have been a bit soft. * Antihypertensives will be reviewed and resumed as appropriate. * Continue to monitor daily. (6) Coronary artery disease: Onset Date: ~11/2017 Qualifiers: Coronary Disease-Associated Artery/Lesion type: [place] artery [place] vs. transplanted heart: [place] heart Associated angina: without angina Qualified Code(s): I25.10 - Atherosclerotic heart disease of [place] coronary artery without angina pectoris Code(s): I25.10 - Atherosclerotic heart disease of [place] coronary artery without angina pectoris Status: Acute Assessment and Plan: * No acute issues. * Continue dual anti-platelet therapy, beta-sangeetha, and statin. Subjective Date/time seen: 01/14/20 12:39 With history of hypertension, diabetes and coronary artery disease as well as poor dentition presented emergency department with a complaint right maxillary facial rash which started about 2-3 days ago and progressively getting worse, describes burning sensation along the rash, patient denies any fever or chills, patient was started on vancomycin and imipenem, patient states feeling better denies any visual problem denies any fever or chills Review of Systems Review of Systems: All systems reviewed & are unremarkable except as noted in HPI and below Exam Const: General: comfortable and no acute distress HENMT: General nose exa
--- NOTE | 2020-01-14 12:39 | PM.IMPN ---
Progress Note: A&P Assessment and Plan (1) Parotiditis: Code(s): K11.20 - Sialoadenitis, unspecified Status: Acute Assessment and Plan: She has been started on vancomycin and imipenem. No evidence of sialolith on imaging. 01/14/20 12:39 With history of hypertension, diabetes and coronary artery disease as well as poor dentition presented emergency department with a complaint right maxillary facial rash which started about 2-3 days ago and progressively getting worse, describes burning sensation along the rash, patient denies any fever or chills, patient was started on vancomycin and imipenem, patient states feeling better denies any visual problem denies any fever or chills (2) Erysipelas: Code(s): A46 - Erysipelas Status: Acute Assessment and Plan: She has findings of facial erysipelas, which could be due to reactive edema and inflammation from the parotiditis. Continue vancomycin and imipenem as above. (3) Hypomagnesemia: Code(s): E83.42 - Hypomagnesemia Status: Acute Assessment and Plan: Magnesium will be replaced and monitored. (4) Insulin dependent type 2 diabetes mellitus: Code(s): E11.9 - Type 2 diabetes mellitus without complications; Z79.4 - FPC (current) use of insulin Status: Acute Assessment and Plan: Patient with uncontrolled diabetes with hemoglobin A1c of 10.6 will have medical educator consult the patient Initiate sliding scale insulin, Accu-Cheks, and hypoglycemic protocol. (5) Hypertension: Qualifiers: Hypertension type: essential hypertension Qualified Code(s): I10 - Essential (primary) hypertension Code(s): I10 - Essential (primary) hypertension Status: Acute Assessment and Plan: Blood pressures were reviewed and they have been a bit soft. Antihypertensives will be reviewed and resumed as appropriate. Continue to monitor daily. (6) Coronary artery disease: Onset Date: ~11/2017 Qualifiers: Coronary Disease-Associated Artery/Lesion type: [place] artery [place] vs. transplanted heart: [place] heart Associated angina: without angina Qualified Code(s): I25.10 - Atherosclerotic heart disease of [place] coronary artery without angina pectoris Code(s): I25.10 - Atherosclerotic heart disease of [place] coronary artery without angina pectoris Status: Acute Assessment and Plan: No acute issues. Continue dual anti-platelet therapy, beta-sangeetha, and statin. Subjective Date/time seen: 01/14/20 12:39 With history of hypertension, diabetes and coronary artery disease as well as poor dentition presented emergency department with a complaint right maxillary facial rash which started about 2-3 days ago and progressively getting worse, describes burning sensation along the rash, patient denies any fever or chills, patient was started on vancomycin and imipenem, patient states feeling better denies any visual problem denies any fever or chills Review of Systems Review of Systems: All systems reviewed & are unremarkable except as noted in HPI and below Exam Const: General: comfortable and no acute distress HENMT: General nose exam: Normal nares present Eyes: EOM: EOMs intact bilaterally Other: There is minimal pain with with extraocular movement along the right side Neck: Neck: supple Resp: Effort & Inspection: normal respiratory effort Auscultation: clear to auscultation bilaterally Cardio: Rate: regular rate Rhythm: regular rhythm GI: Auscultation: normal bowel sounds Skin: Other: Right maxillary ierythmatous induration, nonflocculent, n
[2020-01-14] MEDS: MAGNESIUM SULF 2 GM/WATER 50ML 2 GM/50 ML BAG IVPB (14:27)
--- NOTE | 2020-01-14 15:35 | PC.NURSE ---
Call to pharmacy to request vancomycin be sent to floor for administration.
[2020-01-14] MEDS: INSULIN ASPART (*BKC) 100 UNITS/ML SUB-Q (16:47)
[2020-01-14 16:48] LABS: Glucose Point of Care 245 (65-105)
[2020-01-14] MEDS: ONDANSETRON INJ 4 MG/2 ML VIAL IV PUSH (16:58)
[2020-01-14] MEDS: INSULIN GLARGINE (*BKC) 100 UNITS/ML 15 UNITS SUB-Q (22:02)
[2020-01-14] MEDS: LACTATED RINGERS 1,000 ML 75 ML IV CONT (22:40)
[2020-01-14 22:44] LABS: Glucose Point of Care 218 (65-105)
[2020-01-15] VITALS (9 sets, daily range): BP systolic 106–120; BP diastolic 56–64; PULSE 70–80; RESP 18–20; TEMP 35.4–36.7; O2SAT 92–98; BMI 38.6
[2020-01-15] MEDS: ACETAMINOPHEN 325 MG TABLET 650 MG PO (00:16)
[2020-01-15 05:45] LABS: Hematocrit 34.5 % (37.0-47.0); Hemoglobin 11.2 g/dL (12.0-15.0); Mean Corpuscular HGB Conc 32.5 g/dl (32-36); Mean Corpuscular Hemoglobin 28.8 pg (26-34); Mean Corpuscular Volume 88.7 fl (80-100); Mean Platelet Volume 10.5 fl (7.4-10.4); Platelet Count Result 189 k/mm3 (150-375); Red Blood Count 3.89 M/mm3 (4.2-5.4); Red Cell Distribution Width 13.7 % (11.5-14.5); White Blood Count 4.5 K/mm3 (4.5-10.0)
[2020-01-15 05:57] LABS: Blood Urea Nitrogen 14 mg/dL (7-17); Calcium 8.3 mg/dL (8.4-10.2); Carbon Dioxide 27 mmol/L (22-30); Chloride 104 mmol/L (98-107); Estimated CRCL calculation 56 ml/min; Estimated Glomerular Filt Rate > 60; Glucose 188 mg/dL (65-105); Magnesium 1.7 mg/dL (1.6-2.3); Sodium 136 mmol/L (137-145)
[2020-01-15 07:58] LABS: Glucose Point of Care 159 (65-105)
[2020-01-15] MEDS: METOPROLOL TARTRATE 25 MG TABLET PO ×2 (08:34→20:57)
[2020-01-15] MEDS: PANTOPRAZOLE 40 MG TABLET PO ×2 (08:34→20:58)
[2020-01-15] MEDS: CLOPIDOGREL BISULFATE 75 MG TABLET PO (08:34)
[2020-01-15] MEDS: ASPIRIN 81 MG ENTERIC TABLET PO (08:35)
[2020-01-15] MEDS: GLIMEPIRIDE 2 MG TABLET 4 MG PO ×2 (08:35→17:11)
[2020-01-15] MEDS: CITALOPRAM HYDROBROMIDE 20 MG TABLET PO (08:35)
[2020-01-15] MEDS: lisinopriL 2.5 MG TABLET PO (08:35)
[2020-01-15] MEDS: MAGNESIUM OXIDE 400 MG TABLET PO (08:35)
[2020-01-15] MEDS: INSULIN ASPART (*BKC) 100 UNITS/ML SUB-Q ×2 (11:41→17:12)
[2020-01-15 11:42] LABS: Glucose Point of Care 291 (65-105)
--- NOTE | 2020-01-15 12:39 | P.PNIM_ITS ---
Progress Note: A&P Assessment and Plan (1) Parotiditis: Code(s): K11.20 - Sialoadenitis, unspecified Status: Acute Assessment and Plan: * She has been started on vancomycin and imipenem. * No evidence of sialolith on imaging. 01/15/20 12:39 With history of hypertension, diabetes and coronary artery disease as well as poor dentition presented emergency department with a complaint right maxillary facial rash which started about 2-3 days ago and progressively getting worse, describes burning sensation along the rash, patient denies any fever or chills, patient was started on vancomycin and imipenem, today patient shows some improvement and pain has improved, patient will benefit from IV abx ond more day, will reassess patient and may discharge home on oral abx, states feeling better denies any visual problem denies any fever or chills (2) Erysipelas: Code(s): A46 - Erysipelas Status: Acute Assessment and Plan: * She has findings of facial erysipelas, which could be due to reactive edema and inflammation from the parotiditis. * Continue vancomycin and imipenem as above. (3) Hypomagnesemia: Code(s): E83.42 - Hypomagnesemia Status: Acute Assessment and Plan: * Magnesium will be replaced and monitored. (4) Insulin dependent type 2 diabetes mellitus: Code(s): E11.9 - Type 2 diabetes mellitus without complications; Z79.4 - custodial (cu rrent) use of insulin Status: Acute Assessment and Plan: * Patient with uncontrolled diabetes with hemoglobin A1c of 10.6 will have perioperative educator consult the patient * Initiate sliding scale insulin, Accu-Cheks, and hypoglycemic protocol. (5) Hypertension: Qualifiers: Hypertension type: essential hypertension Qualified Code(s): I10 - Essential (primary) hypertension Code(s): I10 - Essential (primary) hypertension Status: Acute Assessment and Plan: * Blood pressures were reviewed and they have been a bit soft. * Antihypertensives will be reviewed and resumed as appropriate. * Continue to monitor daily. (6) Coronary artery disease: Onset Date: ~11/2017 Qualifiers: Coronary Disease-Associated Artery/Lesion type: [place] artery [place] vs. transplanted heart: [place] heart Associated angina: without angina Qualified Code(s): I25.10 - Atherosclerotic heart disease of [place] coronary artery without angina pectoris Code(s): I25.10 - Atherosclerotic heart disease of [place] coronary artery without angina pectoris Status: Acute Assessment and Plan: * No acute issues. * Continue dual anti-platelet therapy, beta-sangeetha, and statin. Subjective Date/time seen: 01/15/20 12:39 With history of hypertension, diabetes and coronary artery disease as well as poor dentition presented emergency department with a complaint right maxillary facial rash which started about 2-3 days ago and progressively getting worse, describes burning sensation along the rash, patient denies any fever or chills, patient was started on vancomycin and imipenem, today patient shows some improvement and pain has improved, patient will benefit from IV abx ond more day, will reassess patient and may discharge home on oral abx, states feeling better denies any visual problem denies any fever or chills
--- NOTE | 2020-01-15 12:39 | PM.IMPN ---
Progress Note: A&P Assessment and Plan (1) Parotiditis: Code(s): K11.20 - Sialoadenitis, unspecified Status: Acute Assessment and Plan: She has been started on vancomycin and imipenem. No evidence of sialolith on imaging. 01/15/20 12:39 With history of hypertension, diabetes and coronary artery disease as well as poor dentition presented emergency department with a complaint right maxillary facial rash which started about 2-3 days ago and progressively getting worse, describes burning sensation along the rash, patient denies any fever or chills, patient was started on vancomycin and imipenem, today patient shows some improvement and pain has improved, patient will benefit from IV abx ond more day, will reassess patient and may discharge home on oral abx, states feeling better denies any visual problem denies any fever or chills (2) Erysipelas: Code(s): A46 - Erysipelas Status: Acute Assessment and Plan: She has findings of facial erysipelas, which could be due to reactive edema and inflammation from the parotiditis. Continue vancomycin and imipenem as above. (3) Hypomagnesemia: Code(s): E83.42 - Hypomagnesemia Status: Acute Assessment and Plan: Magnesium will be replaced and monitored. (4) Insulin dependent type 2 diabetes mellitus: Code(s): E11.9 - Type 2 diabetes mellitus without complications; Z79.4 - continuous churn buttermaker (current) use of insulin Status: Acute Assessment and Plan: Patient with uncontrolled diabetes with hemoglobin A1c of 10.6 will have simulation educator consult the patient Initiate sliding scale insulin, Accu-Cheks, and hypoglycemic protocol. (5) Hypertension: Qualifiers: Hypertension type: essential hypertension Qualified Code(s): I10 - Essential (primary) hypertension Code(s): I10 - Essential (primary) hypertension Status: Acute Assessment and Plan: Blood pressures were reviewed and they have been a bit soft. Antihypertensives will be reviewed and resumed as appropriate. Continue to monitor daily. (6) Coronary artery disease: Onset Date: ~11/2017 Qualifiers: Coronary Disease-Associated Artery/Lesion type: [place] artery [place] vs. transplanted heart: [place] heart Associated angina: without angina Qualified Code(s): I25.10 - Atherosclerotic heart disease of [place] coronary artery without angina pectoris Code(s): I25.10 - Atherosclerotic heart disease of [place] coronary artery without angina pectoris Status: Acute Assessment and Plan: No acute issues. Continue dual anti-platelet therapy, beta-sangeetha, and statin. Subjective Date/time seen: 01/15/20 12:39 With history of hypertension, diabetes and coronary artery disease as well as poor dentition presented emergency department with a complaint right maxillary facial rash which started about 2-3 days ago and progressively getting worse, describes burning sensation along the rash, patient denies any fever or chills, patient was started on vancomycin and imipenem, today patient shows some improvement and pain has improved, patient will benefit from IV abx ond more day, will reassess patient and may discharge home on oral abx, states feeling better denies any visual problem denies any fever or chills Review of Systems Review of Systems: All systems reviewed & are unremarkable except as noted in HPI and below Exam Const: General: comfortable and no acute distress HENMT: General nose exam: Normal nares present Eyes: Sclera: sclerae normal Neck: Neck: supple Resp: Effort & Inspection: normal resp
[2020-01-15] MEDS: ONDANSETRON INJ 4 MG/2 ML VIAL IV PUSH (14:21)
[2020-01-15 17:02] LABS: Glucose Point of Care 269 (65-105)
[2020-01-15] MEDS: LOPERAMIDE HCL 2 MG CAPSULE PO (17:10)
[2020-01-15] MEDS: ALPRAZOLAM 0.25 MG TABLET PO (17:10)
[2020-01-15] MEDS: INSULIN GLARGINE (*BKC) 100 UNITS/ML 15 UNITS SUB-Q (21:03)
[2020-01-15 22:48] LABS: Glucose Point of Care 280 (65-105)
[2020-01-16] VITALS (13 sets, daily range): BP systolic 101–198; BP diastolic 60–89; PULSE 67–87; RESP 12–19; TEMP 36–36.4; O2SAT 92–100
[2020-01-16 05:41] LABS: Hematocrit 34.2 % (37.0-47.0); Hemoglobin 11.2 g/dL (12.0-15.0); Mean Corpuscular HGB Conc 32.7 g/dl (32-36); Mean Corpuscular Volume 88.6 fl (80-100); Mean Platelet Volume 10.7 fl (7.4-10.4); Platelet Count Result 187 k/mm3 (150-375); Red Blood Count 3.86 M/mm3 (4.2-5.4); Red Cell Distribution Width 13.8 % (11.5-14.5); White Blood Count 5.8 K/mm3 (4.5-10.0)
[2020-01-16 06:06] LABS: Blood Urea Nitrogen 15 mg/dL (7-17); Calcium 8.5 mg/dL (8.4-10.2); Carbon Dioxide 28 mmol/L (22-30); Chloride 102 mmol/L (98-107); Estimated CRCL calculation 61 ml/min; Estimated Glomerular Filt Rate > 60; Glucose 204 mg/dL (65-105); Magnesium 1.4 mg/dL (1.6-2.3); Potassium 4.2 mmol/L (3.4-5.0); Sodium 134 mmol/L (137-145)
[2020-01-16 07:54] LABS: Glucose Point of Care 167 (65-105)
[2020-01-16] MEDS: METOPROLOL TARTRATE 25 MG TABLET PO ×2 (08:51→20:51)
[2020-01-16] MEDS: ASPIRIN 81 MG ENTERIC TABLET PO (08:51)
[2020-01-16] MEDS: CLOPIDOGREL BISULFATE 75 MG TABLET PO (08:51)
[2020-01-16] MEDS: MAGNESIUM OXIDE 400 MG TABLET PO (08:51)
[2020-01-16] MEDS: GLIMEPIRIDE 2 MG TABLET 4 MG PO ×2 (08:51→16:37)
[2020-01-16] MEDS: lisinopriL 2.5 MG TABLET PO (08:51)
[2020-01-16] MEDS: PANTOPRAZOLE 40 MG TABLET PO ×2 (08:51→20:51)
[2020-01-16] MEDS: CITALOPRAM HYDROBROMIDE 20 MG TABLET PO (08:51)
[2020-01-16 11:53] LABS: Glucose Point of Care 235 (65-105)
[2020-01-16] MEDS: INSULIN ASPART (*BKC) 100 UNITS/ML SUB-Q ×2 (12:00→16:36)
[2020-01-16 14:11] LABS: Vancomycin Trough 8.8 ug/mL (10.0-20.0)
--- NOTE | 2020-01-16 16:16 | P.PNIM_ITS ---
Progress Note: A&P Assessment and Plan (1) Parotiditis: Code(s): K11.20 - Sialoadenitis, unspecified Status: Acute Assessment and Plan: * She has been started on vancomycin and imipenem. * No evidence of sialolith on imaging. 01/16/20 16:16 With history of hypertension, diabetes and coronary artery disease as well as poor dentition presented emergency department with a complaint right maxillary facial rash which started about 2-3 days ago and progressively getting worse, describes burning sensation along the rash, patient denies any fever or chills, patient was started on vancomycin and imipenem, today patient shows some improvement and pain has improved, patient will benefit from IV abx ond more day, will reassess patient and may discharge home on oral abx, today patient is requiring oxygen and suspect patient has sleep apnea, will do apnea link tonight patient will need sleep study as outpatient, states feeling better denies any visual problem denies any fever or chills (2) Erysipelas: Code(s): A46 - Erysipelas Status: Acute Assessment and Plan: * She has findings of facial erysipelas, which could be due to reactive edema and inflammation from the parotiditis. * Continue vancomycin and imipenem as above. (3) Hypomagnesemia: Code(s): E83.42 - Hypomagnesemia Status: Acute Assessment and Plan: * Magnesium will be replaced and monitored. (4) Insulin dependent type 2 diabetes mellitus: Code(s): E11.9 - Type 2 diabetes mellitus without complications; Z79.4 - prison (current) use of insulin Status: Acute Assessment and Plan: * Patient with uncontrolled diabetes with hemoglobin A1c of 10.6 will have healthcare educator consult the patient * Initiate sliding scale insulin, Accu-Cheks, and hypoglycemic protocol. (5) Hypertension: Qualifiers: Hypertension type: essential hypertension Qualified Code(s): I10 - Essential (primary) hypertension Code(s): I10 - Essential (primary) hypertension Status: Acute Assessment and Plan: * Blood pressures were reviewed and they have been a bit soft. * Antihypertensives will be reviewed and resumed as appropriate. * Continue to monitor daily. (6) Coronary artery disease: Onset Date: ~11/2017 Qualifiers: Associated angina: without angina Coronary Disease-Associated Artery/Lesion type: [place] artery [place] vs. transplanted heart: [place] heart Qualified Code(s): I25.10 - Atherosclerotic heart disease of [place] coronary artery without angina pectoris Code(s): I25.10 - Atherosclerotic heart disease of [place] coronary artery without angina pectoris Status: Acute Assessment and Plan: * No acute issues. * Continue dual anti-platelet therapy, beta-sangeetha, and statin. Subjective Date/time seen: 01/16/20 16:16 With history of hypertension, diabetes and coronary artery disease as well as poor dentition presented emergency department with a complaint right maxillary facial rash which started about 2-3 days ago and progressively getting worse, describes burning sensation along the rash, patient denies any fever or chills, patient was started on vancomycin and imipenem, today patient shows some improvement and pain has improved, patient will benefit from IV abx ond m
--- NOTE | 2020-01-16 16:16 | PM.IMPN ---
Progress Note: A&P Assessment and Plan (1) Parotiditis: Code(s): K11.20 - Sialoadenitis, unspecified Status: Acute Assessment and Plan: She has been started on vancomycin and imipenem. No evidence of sialolith on imaging. 01/16/20 16:16 With history of hypertension, diabetes and coronary artery disease as well as poor dentition presented emergency department with a complaint right maxillary facial rash which started about 2-3 days ago and progressively getting worse, describes burning sensation along the rash, patient denies any fever or chills, patient was started on vancomycin and imipenem, today patient shows some improvement and pain has improved, patient will benefit from IV abx ond more day, will reassess patient and may discharge home on oral abx, today patient is requiring oxygen and suspect patient has sleep apnea, will do apnea link tonight patient will need sleep study as outpatient, states feeling better denies any visual problem denies any fever or chills (2) Erysipelas: Code(s): A46 - Erysipelas Status: Acute Assessment and Plan: She has findings of facial erysipelas, which could be due to reactive edema and inflammation from the parotiditis. Continue vancomycin and imipenem as above. (3) Hypomagnesemia: Code(s): E83.42 - Hypomagnesemia Status: Acute Assessment and Plan: Magnesium will be replaced and monitored. (4) Insulin dependent type 2 diabetes mellitus: Code(s): E11.9 - Type 2 diabetes mellitus without complications; Z79.4 - correction (current) use of insulin Status: Acute Assessment and Plan: Patient with uncontrolled diabetes with hemoglobin A1c of 10.6 will have early childhood special educator consult the patient Initiate sliding scale insulin, Accu-Cheks, and hypoglycemic protocol. (5) Hypertension: Qualifiers: Hypertension type: essential hypertension Qualified Code(s): I10 - Essential (primary) hypertension Code(s): I10 - Essential (primary) hypertension Status: Acute Assessment and Plan: Blood pressures were reviewed and they have been a bit soft. Antihypertensives will be reviewed and resumed as appropriate. Continue to monitor daily. (6) Coronary artery disease: Onset Date: ~11/2017 Qualifiers: Associated angina: without angina Coronary Disease-Associated Artery/Lesion type: [place] artery [place] vs. transplanted heart: [place] heart Qualified Code(s): I25.10 - Atherosclerotic heart disease of [place] coronary artery without angina pectoris Code(s): I25.10 - Atherosclerotic heart disease of [place] coronary artery without angina pectoris Status: Acute Assessment and Plan: No acute issues. Continue dual anti-platelet therapy, beta-sangeetha, and statin. Subjective Date/time seen: 01/16/20 16:16 With history of hypertension, diabetes and coronary artery disease as well as poor dentition presented emergency department with a complaint right maxillary facial rash which started about 2-3 days ago and progressively getting worse, describes burning sensation along the rash, patient denies any fever or chills, patient was started on vancomycin and imipenem, today patient shows some improvement and pain has improved, patient will benefit from IV abx ond more day, will reassess patient and may discharge home on oral abx, today patient is requiring oxygen and suspect patient has sleep apnea, will do apnea link tonight patient will need sleep study as outpatient, states feeling better denies any visual problem denies any fever or chills Review of Systems Review of Systems: All systems reviewed & are unremarkable
[2020-01-16 16:23] LABS: Glucose Point of Care 286 (65-105)
[2020-01-16] MEDS: INSULIN GLARGINE (*BKC) 100 UNITS/ML 15 UNITS SUB-Q (20:57)
[2020-01-16 21:02] LABS: Glucose Point of Care 161 (65-105)
[2020-01-16] MEDS: ACETAMINOPHEN 325 MG TABLET 650 MG PO (22:27)
[2020-01-17] VITALS (13 sets, daily range): BP systolic 115–135; BP diastolic 54–76; PULSE 70–88; RESP 16–18; TEMP 36.1–37.1; O2SAT 90–98
[2020-01-17 06:29] LABS: Hematocrit 37.3 % (37.0-47.0); Hemoglobin 12.2 g/dL (12.0-15.0); Mean Corpuscular HGB Conc 32.7 g/dl (32-36); Mean Corpuscular Hemoglobin 28.7 pg (26-34); Mean Corpuscular Volume 87.8 fl (80-100); Mean Platelet Volume 10.1 fl (7.4-10.4); Platelet Count Result 235 k/mm3 (150-375); Red Blood Count 4.25 M/mm3 (4.2-5.4); Red Cell Distribution Width 13.7 % (11.5-14.5)
[2020-01-17 06:45] LABS: Blood Urea Nitrogen 14 mg/dL (7-17); Calcium 8.7 mg/dL (8.4-10.2); Carbon Dioxide 32 mmol/L (22-30); Chloride 103 mmol/L (98-107); Estimated CRCL calculation 57 ml/min; Estimated Glomerular Filt Rate > 60; Glucose 98 mg/dL (65-105); Magnesium 1.5 mg/dL (1.6-2.3); Potassium 3.9 mmol/L (3.4-5.0); Sodium 137 mmol/L (137-145)
[2020-01-17 08:21] LABS: Glucose Point of Care 98 (65-105)
[2020-01-17] MEDS: GLIMEPIRIDE 2 MG TABLET 4 MG PO ×2 (08:24→18:36)
[2020-01-17] MEDS: CITALOPRAM HYDROBROMIDE 20 MG TABLET PO (08:25)
[2020-01-17] MEDS: METOPROLOL TARTRATE 25 MG TABLET PO ×2 (08:25→21:24)
[2020-01-17] MEDS: lisinopriL 2.5 MG TABLET PO (08:25)
[2020-01-17] MEDS: PANTOPRAZOLE 40 MG TABLET PO ×2 (08:25→21:23)
[2020-01-17] MEDS: CLOPIDOGREL BISULFATE 75 MG TABLET PO (08:25)
[2020-01-17] MEDS: MAGNESIUM OXIDE 400 MG TABLET PO ×2 (08:25→21:22)
[2020-01-17] MEDS: ASPIRIN 81 MG ENTERIC TABLET PO (08:25)
[2020-01-17] MEDS: AMOXICILLIN/CLAVULANATE K 500-125 MG TAB 1 TABLET PO ×3 (10:22→21:22)
--- NOTE | 2020-01-17 11:19 | HOMEO2EVAL ---
Home Oxygen Evaluation RC: Home Oxygen (O2) Evaluation Start: 01/16/20 12:35 Freq: ONCE Status: Active Protocol: RPE Activity Type Activity Date Activity User E-Sign Co-Sign Detail Recorded Client Recorded Date Recorded By Document 01/17/20 10:30 [facility] [id number] 01/17/20 11:07 [facility] Document 01/17/20 10:35 [facility] [email or web address] 01/17/20 11:07 [facility] Document 01/17/20 10:45 [facility] [id number] 01/17/20 11:07 [facility] 01/17/20 01/17/20 01/17/20 10:30 10:35 10:45 Home O2 Evaluation Test Phase Resting Exercise Resting Oxygen Delivery Room Air Room Air Room Air Pulse Oximetry (90-100 %) 92 96 90 Pulse Rate (60-100 beats/min) 71 88 75 Home Oxygen Evaluation Comments UP TO EDGE OF BED
--- NOTE | 2020-01-17 11:19 | PCRCNOTE ---
HOME O2 AT NIGHT REQUIRED, APNEA LINK AND PAPERWORK FAXED TO [facility]. CURRENT ADDRESS IS [address] [place]
[2020-01-17] MEDS: INSULIN ASPART (*BKC) 100 UNITS/ML SUB-Q (11:46)
[2020-01-17 13:16] LABS: Glucose Point of Care 241 (65-105)
--- NOTE | 2020-01-17 14:15 | PM.IMPN ---
Progress Note: A&P Assessment and Plan (1) Parotiditis: Code(s): K11.20 - Sialoadenitis, unspecified Status: Acute Assessment and Plan: She has been started on vancomycin and imipenem. No evidence of sialolith on imaging. 01/17/20 14:15 With history of hypertension, diabetes and coronary artery disease as well as poor dentition presented emergency department with a complaint right maxillary facial rash which started about 2-3 days ago and progressively getting worse, describes burning sensation along the rash, patient denies any fever or chills, patient was started on vancomycin and imipenem, on 01/15 patient showed some improvement and pain had improved,plan was patient will benefit from IV abx ond more day, will reassess patient and may discharge home on oral abx, however today patient c/o being dizzy, room is moving, has double vision and all her body feels numb and warm. EOM shows verticle nystagmus, D/W Dr. Méndez will do MRI of brain but patient has pacemaker and cannot have MRI, will do CTA of head and neurologist will evalutate the patient, patient facial rash has resolved will switch to Augmentin 500mg TID, will monitor and plan follow up CTA of head and further recommendations to follow (2) Erysipelas: Code(s): A46 - Erysipelas Status: Acute Assessment and Plan: She has findings of facial erysipelas, which could be due to reactive edema and inflammation from the parotiditis. Continue vancomycin and imipenem as above. (3) Hypomagnesemia: Code(s): E83.42 - Hypomagnesemia Status: Acute Assessment and Plan: Magnesium will be replaced and monitored. (4) Insulin dependent type 2 diabetes mellitus: Code(s): E11.9 - Type 2 diabetes mellitus without complications; Z79.4 - termite control servicer (current) use of insulin Status: Acute Assessment and Plan: Patient with uncontrolled diabetes with hemoglobin A1c of 10.6 will have public health educator consult the patient Initiate sliding scale insulin, Accu-Cheks, and hypoglycemic protocol. (5) Hypertension: Qualifiers: Hypertension type: essential hypertension Qualified Code(s): I10 - Essential (primary) hypertension Code(s): I10 - Essential (primary) hypertension Status: Acute Assessment and Plan: Blood pressures were reviewed and they have been a bit soft. Antihypertensives will be reviewed and resumed as appropriate. Continue to monitor daily. (6) Coronary artery disease: Onset Date: ~11/2017 Qualifiers: Associated angina: without angina Coronary Disease-Associated Artery/Lesion type: [place] artery [place] vs. transplanted heart: [place] heart Qualified Code(s): I25.10 - Atherosclerotic heart disease of [place] coronary artery without angina pectoris Code(s): I25.10 - Atherosclerotic heart disease of [place] coronary artery without angina pectoris Status: Acute Assessment and Plan: No acute issues. Continue dual anti-platelet therapy, beta-sangeetha, and statin. (7) Dizzy spells: Code(s): R42 - Dizziness and giddiness Status: Acute Assessment and Plan: plan is above Subjective Date/time seen: 01/17/20 14:15 With history of hypertension, diabetes and coronary artery disease as well as poor dentition presented emergency department with a complaint right maxillary facial rash which started about 2-3 days ago and progressively getting worse, describes burning sensation along the rash, patient denies any fever or chills, patient was started on vancomycin and imipenem, on 01/15 patient showed some improvement and pain had improved,plan was patient will benefit from IV a
--- NOTE | 2020-01-17 15:23 | WPDNEURCNPN ---
Assessment and Plan Assessment and plan (1) Dizzy spells: Code(s): R42 - Dizziness and giddiness Status: Acute (2) Coronary artery disease: Onset Date: ~11/2017 Qualifiers: Coronary Disease-Associated Artery/Lesion type: [place] artery [place] vs. transplanted heart: [place] heart Associated angina: without angina Qualified Code(s): I25.10 - Atherosclerotic heart disease of [place] coronary artery without angina pectoris Code(s): I25.10 - Atherosclerotic heart disease of [place] coronary artery without angina pectoris Status: Acute (3) Hypertension: Qualifiers: Hypertension type: essential hypertension Qualified Code(s): I10 - Essential (primary) hypertension Code(s): I10 - Essential (primary) hypertension Status: Acute (4) Hypomagnesemia: Code(s): E83.42 - Hypomagnesemia Status: Acute (5) Parotiditis: Code(s): K11.20 - Sialoadenitis, unspecified Status: Acute (6) Insulin dependent type 2 diabetes mellitus: Code(s): E11.9 - Type 2 diabetes mellitus without complications; Z79.4 - group home (current) use of insulin Status: Acute (7) Cellulitis diffuse, face: Code(s): L03.211 - Cellulitis of face Status: Acute (8) Hypomagnesemia: Code(s): E83.42 - Hypomagnesemia Status: Acute (9) Chronic kidney disease, stage 3: Code(s): N18.3 - Chronic kidney disease, stage 3 (moderate) Status: Chronic (10) TIA (transient ischemic attack): Code(s): G45.9 - Transient cerebral ischemic attack, unspecified Status: Acute Assessment and Plan: ordinarily 1 would order the MRI however she is not MRI compatible so a CTA had been ordered and depending upon that further management accordingly medication as such Consult date: 01/17/20 Time Seen: 15:00 HPI: Marlys Rai is a 54 year old female who is admitted for a different reason however I am consulted because of a sudden onset of generalized numbness all over her body including the face arms and the legs without any obvious motor weakness without any trouble with her consciousness her double vision which she has had from her childhood remains stable she is able to see quite well and denies any headache nausea vomiting chest pain shortness of breath fever chills sore throat PMFSH Past Medical History Medical History Anemia With history of blood transfusion. AV block Status post atrial pacemaker insertion. CHF (congestive heart failure) Coronary artery disease (~11/2017) Cardiac catheterization per Dr. Montalvo demonstrated distal 1st diagonal vessel total occlusion status post angioplasty and stent placement. Depression with anxiety Diabetic peripheral neuropathy Eczema Gastroesophageal reflux disease Hyperlipidemia Hypertension Insulin dependent type 2 diabetes mellitus Hemoglobin A1c was 9.8% in July 2019. Myocardial infarction x2 Osteoarthritis Previous known suicide attempt Restless leg syndrome Seasonal allergies Septal defect Patient on certain whether this was an ASD or VSD repair, done at the age of 39. Valvular heart disease Status post mitral valve repair. ADARSH September 18, 2019 showed moderate to severe mitral valve calcification with decreased movement and evidence of moderate mitral valve regurgitation. Vitamin D deficiency Surgical History Surgical History History of History of cardiac catheterization (~11/2017) Status post angioplasty and stent placement to distal 1st diagonal per Dr. Montalvo. History of permanent cardiac pacemaker placement History of sternectomy Repaired hole in heart, patient unsure whether it was in atrial or ventricular septal defect. Family History Family History Mother Peripheral vascular disease Sibling Diabetes m
--- NOTE | 2020-01-17 18:10 | PC.NURSE ---
To CT per W/C.
--- NOTE | 2020-01-17 18:32 | PC.NURSE ---
1832-Return from CT per W/C
[2020-01-17 18:51] LABS: Glucose Point of Care 178 (65-105)
[2020-01-17] MEDS: ACETAMINOPHEN 325 MG TABLET 650 MG PO (19:57)
[2020-01-17 21:18] LABS: Glucose Point of Care 281 (65-105)
[2020-01-17] MEDS: INSULIN GLARGINE (*BKC) 100 UNITS/ML 15 UNITS SUB-Q (21:18)
[2020-01-18 02:00] VITALS: BP 106/72; PULSE 71; RESP 16; TEMP 36.2; O2SAT 93
[2020-01-18] MEDS: AMOXICILLIN/CLAVULANATE K 500-125 MG TAB 1 TABLET PO ×2 (05:36→12:59)
[2020-01-18 05:53] VITALS: BP 108/61; PULSE 71; RESP 16; TEMP 35.8; O2SAT 96
[2020-01-18 06:07] LABS: Hematocrit 36.9 % (37.0-47.0); Hemoglobin 12.1 g/dL (12.0-15.0); Mean Corpuscular HGB Conc 32.8 g/dl (32-36); Mean Corpuscular Volume 88.5 fl (80-100); Mean Platelet Volume 10.6 fl (7.4-10.4); Platelet Count Result 255 k/mm3 (150-375); Red Blood Count 4.17 M/mm3 (4.2-5.4); Red Cell Distribution Width 13.8 % (11.5-14.5); White Blood Count 4.3 K/mm3 (4.5-10.0)
[2020-01-18 06:13] LABS: Blood Urea Nitrogen 17 mg/dL (7-17); Calcium 8.6 mg/dL (8.4-10.2); Carbon Dioxide 30 mmol/L (22-30); Chloride 99 mmol/L (98-107); Estimated CRCL calculation 52 ml/min; Estimated Glomerular Filt Rate 57; Glucose 203 mg/dL (65-105); Magnesium 1.6 mg/dL (1.6-2.3); Potassium 4.1 mmol/L (3.4-5.0); Sodium 135 mmol/L (137-145)
[2020-01-18 07:46] LABS: Glucose Point of Care 183 (65-105)
[2020-01-18] MEDS: CITALOPRAM HYDROBROMIDE 20 MG TABLET PO (08:29)
[2020-01-18] MEDS: GLIMEPIRIDE 2 MG TABLET 4 MG PO (08:29)
[2020-01-18 08:30] VITALS: PULSE 71
[2020-01-18] MEDS: METOPROLOL TARTRATE 25 MG TABLET PO (08:30)
[2020-01-18] MEDS: MAGNESIUM OXIDE 400 MG TABLET PO (08:30)
[2020-01-18] MEDS: PANTOPRAZOLE 40 MG TABLET PO (08:30)
[2020-01-18] MEDS: lisinopriL 2.5 MG TABLET PO (08:30)
[2020-01-18] MEDS: ASPIRIN 81 MG ENTERIC TABLET PO (08:30)
[2020-01-18] MEDS: CLOPIDOGREL BISULFATE 75 MG TABLET PO (08:30)
[2020-01-18 08:58] VITALS: O2SAT 90
[2020-01-18 10:00] VITALS: BP 114/65; PULSE 71; RESP 18; TEMP 36.4; O2SAT 94
[2020-01-18] MEDS: INSULIN ASPART (*BKC) 100 UNITS/ML SUB-Q (11:23)
[2020-01-18 11:26] LABS: Glucose Point of Care 281 (65-105)
--- NOTE | 2020-01-18 12:37 | PM.DS ---
DS: Admitting Diagnosis Admitting Diagnosis Admitting Diagnosis: Sialoadenitis, unspecified DS: Discharge Diagnosis Discharge Diagnosis (1) Parotiditis: Code(s): K11.20 - Sialoadenitis, unspecified Status: Acute Assessment and Plan: With history of hypertension, diabetes and coronary artery disease as well as poor dentition presented emergency department with a complaint right maxillary facial rash which started about 2-3 days ago and progressively getting worse, describes burning sensation along the rash, patient denies any fever or chills, patient was started on vancomycin and imipenem, on 01/15 patient showed some improvement and pain had improved,plan was patient will benefit from IV abx ond more day, will reassess patient and may discharge home on oral abx, however today patient c/o being dizzy, room is moving, has double vision and all her body feels numb and warm. EOM shows verticle nystagmus, D/W Dr. Méndez will do MRI of brain but patient has pacemaker and cannot have MRI, will do CTA of head and neurologist will evalutate the patient, patient facial rash has resolved will switch to Augmentin 500mg TID, will monitor and plan follow up CTA of head and further recommendations to follow. (2) Erysipelas: Code(s): A46 - Erysipelas Status: Acute Assessment and Plan: She has findings of facial erysipelas, which could be due to reactive edema and inflammation from the parotiditis. Pt was treated with vancomycin and imipenem switch to augmentin on discharge (3) Hypomagnesemia: Code(s): E83.42 - Hypomagnesemia Status: Resolved Assessment and Plan: Magnesium was replaced (4) Insulin dependent type 2 diabetes mellitus: Code(s): E11.9 - Type 2 diabetes mellitus without complications; Z79.4 - FDC (current) use of insulin Status: Acute Assessment and Plan: Patient with uncontrolled diabetes with hemoglobin A1c of 10.6 Pt needs to do better with her DM control (5) Hypertension: Qualifiers: Hypertension type: essential hypertension Qualified Code(s): I10 - Essential (primary) hypertension Code(s): I10 - Essential (primary) hypertension Status: Acute Assessment and Plan: Restart home Bp medication (6) Coronary artery disease: Onset Date: ~11/2017 Qualifiers: Coronary Disease-Associated Artery/Lesion type: [place] artery [place] vs. transplanted heart: [place] heart Associated angina: without angina Qualified Code(s): I25.10 - Atherosclerotic heart disease of [place] coronary artery without angina pectoris Code(s): I25.10 - Atherosclerotic heart disease of [place] coronary artery without angina pectoris Status: Acute Assessment and Plan: No acute issues. Continue dual anti-platelet therapy, beta-sangeetha, and statin. (7) Dizzy spells: Code(s): R42 - Dizziness and giddiness Status: Resolved Assessment and Plan: Plan is above DS: Summary Time Spent with Patient Time attestation: Total time spent providing and/or coordinating discharge services:40 minutes on day of discharge Exam Const: General: comfortable and no acute distress Neck: Neck: supple Resp: Effort & Inspection: normal respiratory effort Auscultation: clear to auscultation bilaterally Cardio: Rate: regular rate Rhythm: regular rhythm GI: Auscultation: normal bowel sounds Skin: Other: Soft swelling resolving. right maxiallry and paratoid, erythematous soft swelling, nonflocculent, no drainage. Neuro: Speech: normal speech Sensory Exam: normal sensation Extrem: General: normal to inspection Psych: Affect: Anxious
== END 2020-01-18 13:35 | disposition home or self-care (01) | DRG 115 ==
LOC: ANHED 14:13 → ANH2MED 14:25
PROVIDERS: Emergency Medicine Emergency Medical Services; Family Medicine; Physician Assistant; Admitting Provider Internal Medicine; Emergency Provider Emergency Medicine; Visit Provider Family Medicine
DX: K11.20 Sialoadenitis, unspecified (principal); E11.22 Type 2 diabetes mellitus with diabetic chronic kidney disease; E11.42 Type 2 diabetes mellitus with diabetic polyneuropathy; I13.0 Hypertensive heart and chronic kidney disease with heart failure and stage 1 through stage 4 chronic kidney disease, or unspecified chronic kidney disease; N18.3 Chronic kidney disease, stage 3 (moderate); I50.9 Heart failure, unspecified; E83.42 Hypomagnesemia; A46 Erysipelas; L03.211 Cellulitis of face; I25.10 Atherosclerotic heart disease of native coronary artery without angina pectoris; R42 Dizziness and giddiness; E78.5 Hyperlipidemia, unspecified; K03.81 Cracked tooth; K02.9 Dental caries, unspecified; F41.8 Other specified anxiety disorders; K21.9 Gastro-esophageal reflux disease without esophagitis; Z79.02 Long term (current) use of antithrombotics/antiplatelets; Z79.4 Long term (current) use of insulin; Z79.82 Long term (current) use of aspirin; Z88.1 Allergy status to other antibiotic agents; Z95.0 Presence of cardiac pacemaker; Z95.5 Presence of coronary angioplasty implant and graft
CPT/HCPCS: 36415; 70487; 70496; 70498; 80048; 80053; 80202; 81001; 82010; 82948; 83036; 83735; 84100; 85025; 85027; 94762; 96361; 96365; 96366; 96367; 96375; 99285; A9270; G0378; G0379; J0131; J0743; J1815; J2405; J2543; J3370; J3475; J7030; J7120; Q9967

== ENCOUNTER 2020-02-26 13:39 | Observation (INO) | payer OTHER, SELFPAY ==
[2020-02-26] VITALS (7 sets, daily range): BP systolic 97–123; BP diastolic 57–94; PULSE 70–75; RESP 13–20; TEMP 36.3–36.6; O2SAT 97–100; BMI 34.0
--- NOTE | ~2020-02-26 | XR_ITS ---
EXAMINATION: XR chest 2V DATE: 02/26/2020 17:50 INDICATION: Weakness, epigastric abdominal pain TECHNIQUE: PA and lateral views of the chest are obtained. COMPARISON: 11/14/2019 FINDINGS: The lungs are free of acute opacities. There is no pleural effusion or pneumothorax. There is stable cardiomegaly. There is mild thoracic spondylosis. Median sternotomy wires are consistent wi th prior cardiac surgery. There is a dual-lead cardiac device implanted in the anterior epigastric espitia bcutaneous tissues with leads projecting on the anterior heart border. IMPRESSION: 1. Stable cardiomegaly. Reviewed, dictated and finalized at location A. IMPRESSION: 1. Stable cardiomegaly.
--- NOTE | ~2020-02-26 | CT_ITS ---
EXAMINATION: CT brain wo con INDICATION: Headache COMPARISON: 01/17/2020 TECHNIQUE: Standard unenhanced head CT. The dose-length product (DLP) was 605.33 mGy-cm. The mA was a djusted according to patient size. Iterative reconstruction technique was employed. FINDINGS: There is no intracranial hemorrhage, acute infarction, or abnormal mass lesion. The ventric les are normal. There is no abnormal mass effect or midline shift. The [place]-white matter differentiat ion is normal. The basal cisterns are patent. The orbits are normal. The paranasal sinuses, mastoids and calvarium are normal. IMPRESSION: 1. No acute intracranial abnormality. Reviewed, dictated and finalized at location A.
--- NOTE | 2020-02-26 13:51 | ECG_ITS ---
Measurements Intervals [place] Rate: 72 P: 15 [place]: 232 QRS: -61 QRSD: 157 T: 101 QT: 460 QTc: 505 Interpretive Statements ELECTRONIC ATRIAL PACEMAKER ELECTRONIC VENTRICULAR PACEMAKER NO FURTHER INTERPRETATION IS POSSIBLE ATYPICAL ECG Electronically Signed On 02-26-2020 14:19:30 CDT by Armando Goff D.O.
[2020-02-26 14:26] LABS: Basophils Percent Auto 0.7 % (0.2-1.2); Eosinophils Absolute Auto 0.1 K/mm3 (0-0.3); Eosinophils Percent Auto 2.8 % (0-4.4); Hematocrit 42.4 % (37.0-47.0); Hemoglobin 13.9 g/dL (12.0-15.0); Immature Granulocyte Absolute 0.01 K/mm3 (0.00-0.031); Immature Granulocyte Percent A 0.2 % (0-0.5); Lymphocytes Absolute Auto 0.88 K/mm3 (0.9-3.2); Lymphocytes Percent Auto 19.2 % (18.3-44.2); Mean Corpuscular HGB Conc 32.8 g/dl (32-36); Mean Corpuscular Hemoglobin 28.8 pg (26-34); Mean Platelet Volume 11.1 fl (7.4-10.4); Monocytes Absolute Auto 0.4 K/mm3 (0.1-0.6); Monocytes Percent Auto 9.4 % (2.6-8.5); Neutrophils Absolute Auto 3.1 K/mm3 (1.3-6.7); Neutrophils Percent Auto 67.7 % (45.5-73.1); Platelet Count Result 250 k/mm3 (150-375); Red Blood Count 4.82 M/mm3 (4.2-5.4); Red Cell Distribution Width 13.2 % (11.5-14.5); White Blood Count 4.6 K/mm3 (4.5-10.0)
[2020-02-26 14:51] LABS: Alanine Aminotransferase 22 U/L (4-35); Albumin Level 4.3 g/dL (3.5-5.1); Alkaline Phosphatase 121 U/L (38-126); Aspartate Amino Transferase 28 U/L (14-36); Bilirubin,Total 0.8 mg/dL (0.2-1.3); Blood Urea Nitrogen 41 mg/dL (7-17); Calcium 9.1 mg/dL (8.4-10.2); Carbon Dioxide 26 mmol/L (22-30); Chloride 105 mmol/L (98-107); Estimated CRCL calculation 37 ml/min; Estimated Glomerular Filt Rate 39; Glucose 152 mg/dL (65-105); Potassium 4.6 mmol/L (3.4-5.0); Sodium 136 mmol/L (137-145)
[2020-02-26 15:03] LABS: Troponin I < 0.012 ng/mL (0.000-0.034)
--- NOTE | 2020-02-26 18:08 | ED.WEAKNESS ---
HPI - Weakness General Chief complaint: Weakness Stated complaint: SICK FOR THE FEW DAYS Time Seen by Provider: 02/26/20 17:48 Source: patient Mode of arrival: ambulatory Limitations: no limitations History of Present Illness HPI Narrative: This is a 54 year old female that presents to the ER for weakness x 3 days. Reports she has been having migraines. Reports she has had moments where she feels like her whole body goes numb. Reports she has been having bad reflux. Also reports she has had problems with dizziness. Denies fever, cough, shortness of breath, abdominal pain, vomiting, or dysuria. Related Data Home Medications Medication Instructions Recorded Confirmed aspirin [Adult Low Dose Aspirin] 81 mg PO DAILY 07/05/19 01/13/20 atorvastatin 40 mg PO DAILY 07/05/19 01/13/20 citalopram 20 mg PO DAILY 07/05/19 01/13/20 clopidogrel [Plavix] 75 mg PO DAILY 07/05/19 01/13/20 nitroglycerin [Nitrostat] 0.4 mg SUBLINGUAL Q5-15M PRN 07/05/19 01/13/20 pantoprazole 40 mg PO BID 07/05/19 01/13/20 Basaglar KwikPen U-100 Insulin 15 unit SUBCUT HS 08/20/19 01/13/20 glimepiride 4 mg PO BID 08/20/19 01/13/20 ropinirole 2 mg PO TID 08/20/19 01/13/20 magnesium oxide 400 mg PO DAILY 10/12/19 01/13/20 metoprolol tartrate 25 mg PO BID 10/12/19 01/13/20 lisinopril 2.5 mg PO DAILY 01/13/20 01/13/20 empagliflozin [Jardiance] mg 02/26/20 Allergies Allergy/AdvReac Type Severity Reaction Status Date / Time azithromycin Allergy Severe Gastrointestinal Verified 02/26/20 17:37 Upset Review of Systems Review of Systems: Narrative: CONSTITUTIONAL: Denies fever EYES: Denies visual changes CARDIOVASCULAR: Reports chest pain RESPIRATORY: Denies cough or dyspnea. GASTROINTESTINAL: Denies abdominal pain, nausea, vomiting GENITOURINARY: Denies dysuria or hematuria. NEUROLOGIC: Reports headache. Denies numbness, or weakness. All systems reviewed & are unremarkable except as noted in HPI and below [facility] Social History Social History Social History: The patient lives in [place], [place] with her mother. She is on disability. She is a lifelong nonsmoker and denies alcohol and drug abuse. She designates her mother, Stacie Sanchez, as her surrogate decision maker and she wishes to be a full code. Gender identity (if verbalized by the patient): Female Spiritual care concerns: No Agree to blood products: Yes Exam Narrative: Exam Narrative: GENERAL: Well-appearing, well-nourished, and in no acute distress. HEAD: Normocephalic, atraumatic. EYES: PERRLA and EOMI. ENT: Nares clear, no rhinorrhea or epistaxis. Mucous membranes moist. Oropharynx without tonsillar hypertrophy exudate or other lesions. Bilateral TMs pearly [place] non-bulging NECK: Supple. No adenopathy or masses. CHEST: Clear to auscultation. No respiratory distress. No wheezes rales or rhonchi HEART: Regular rate and rhythm. No murmur heard. Normal peripheral pulses. ABDOMEN: Soft, nontender, nondistended, normal active bowel sounds. EXTREMITIES: Normal range of motion. No edema. SKIN: Warm, dry, no rash. NEURO: No focal deficits. Alert and oriented x3. Cranial nerves II through XII grossly intact. Normal [id number] PSYCH: Normal mood and affect Course Consultations Consultation #1: Spoke with hospitalist about patient and work-up who accepts admission Date: 02/26/20 Time: 19:27 Vital Signs Vital signs: Vital Signs Temperature 97.5 F L 02/26/20 14:11 Pulse Rate 74 02/26/20 14:11 Respiratory Rate 18 02/26/20 14:11 Blood Pressure 97/57 L 02/26/20 14:11 Pulse Oximetry 100 02/26/20 14:11 Temperature 97.5 F L 02/26/20 14:11 Pulse Rate 70 02/26/20 19:03 Respiratory Rate 13 02/26/20 19:03 Blood Pressure 108/58 L 02/26/20 19:03 Pulse Oximetry 99 02/26/20 19:03 MDM - Weakness MDM Narrative Medical decision making narrative: Patient presents the emergency department for weakness x3 days. Reports he
[2020-02-26] MEDS: SODIUM CHLORIDE 0.9% IV 1,000 ML 999 ML IV CONT (18:19)
[2020-02-26] MEDS: PANTOPRAZOLE SODIUM IV 40 MG VIAL IV PUSH (18:19)
[2020-02-26] MEDS: METOCLOPRAMIDE HCL INJ 10 MG/2 ML VIAL IV PUSH (18:19)
[2020-02-26 18:32] LABS: Add Urine Microscopic? YES; Appearance Urine Clear (Clear); Bacteria Urine Trace /hpf; Bilirubin Urine Negative (Negative); Blood Urine 1+ (Negative); Color Urine Straw (Yellow); Glucose Urine UA 3+ mg/dL (Negative); Ketones Urine Negative (Negative); Leukocyte Esterase Ur Negative LEU/UL (Negative); Mucus Urine Rare /lpf; Nitrate Urine Negative (Negative); Protein Urine Negative (Negative); RBC Urine 0-2 /hpf (0-2); Specific Grav Ur 1.013 (1.001-1.035); Squamous Epithelial Cell Urine Moderate /hpf (Few); Urobilinogen Urine Negative mg/dL (<2.0); WBC Urine 0-3 /hpf
--- NOTE | 2020-02-26 19:17 | PC.NURSE ---
Assumed care of patient at this time. Report received from JOHN Mohr.
[2020-02-26 19:56] LABS: Troponin I < 0.012 ng/mL (0.000-0.034)
[2020-02-26] MEDS: SODIUM CHLORIDE 0.9% IV 1,000 ML 125 ML IV CONT (21:52)
[2020-02-27] VITALS (12 sets, daily range): BP systolic 95–129; BP diastolic 59–68; PULSE 68–82; RESP 16–18; TEMP 36.7–36.9; O2SAT 98–99
[2020-02-27 02:37] LABS: Glucose Point of Care 73 (65-105)
--- NOTE | 2020-02-27 07:53 | ADMGEN ---
This patient, Marlys Rai, was admitted to 3 [facility] Surg Room 320-01. Patient/family oriented to hospital policies and general routines including ID bracelet, bed and alarms, visiting hours, pain management, procedures, bathroom and other care routines, personal items, smoking policy, room service/diet, and visiting hours. Valuables list has been completed. Information on how to activate the Rapid Response Team has been discussed. Patient/Family are encouraged to report perceived risks to care and to ask questions if they do not understand what they are told or what they should do.
[2020-02-27 08:47] LABS: Glucose Point of Care 76 (65-105)
[2020-02-27] MEDS: ASPIRIN 81 MG ENTERIC TABLET PO (08:49)
[2020-02-27] MEDS: LORATADINE 10 MG TABLET PO (08:49)
[2020-02-27] MEDS: CITALOPRAM HYDROBROMIDE 20 MG TABLET PO (08:49)
[2020-02-27] MEDS: CLOPIDOGREL BISULFATE 75 MG TABLET PO (08:49)
[2020-02-27] MEDS: PANTOPRAZOLE 40 MG TABLET PO ×2 (08:49→17:58)
[2020-02-27] MEDS: MAGNESIUM OXIDE 400 MG TABLET PO (08:49)
[2020-02-27] MEDS: rOPINIRole HCL 1 MG TABLET 2 MG PO ×3 (08:50→17:58)
[2020-02-27] MEDS: lisinopriL 2.5 MG TABLET PO (08:54)
[2020-02-27] MEDS: METOPROLOL TARTRATE 25 MG TABLET PO ×2 (08:54→21:24)
[2020-02-27 09:29] LABS: Blood Urea Nitrogen 29 mg/dL (7-17); Calcium 8.5 mg/dL (8.4-10.2); Carbon Dioxide 24 mmol/L (22-30); Chloride 109 mmol/L (98-107); Estimated CRCL calculation 40 ml/min; Estimated Glomerular Filt Rate 42; Glucose 90 mg/dL (65-105); Potassium 4.6 mmol/L (3.4-5.0); Sodium 139 mmol/L (137-145)
[2020-02-27] MEDS: SODIUM CHLORIDE 0.9% IV 1,000 ML 125 ML IV CONT (10:53)
[2020-02-27 12:34] LABS: Glucose Point of Care 177 (65-105)
[2020-02-27] MEDS: ATORVASTATIN 40 MG TABLET PO (12:37)
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
[2020-02-27] MEDS: FLUTICASONE PROPIONATE 0.05% NA SPR 16 GM BTL (*BKC) 1 SPRAY NASAL ×2 (16:20→21:24)
--- NOTE | 2020-02-27 16:38 | PCDIET ---
Nutrition Consult Complete: Pt current nutrition is DBCC. Nutrition recommendation: Agree Last recorded weight is 79 kg. Labs Reviewed: Last A1c was 9.9 in May, Glucose 177 today Meds Noted: Insulin Additional Notes: Pt currently lives with mother and feels depressed about that and admits to eating in response. She has a primary care provider who recently increased her insulin and started her on jardiance. She likes to eat plain cereal and has no understanding of where carbs are found in food. We reviewed where carbs are found in foods, the importance of balancing all carb intake with protein, and how to find carb amounts on a label. We practiced label reading with her favorite cereal. I encouraged pt to stick to 45 g of carbs at all meals and discussed the fist rule or using measuring cups with label reading. I demonstrated the plate method and encouraged increased intake of veggies. Pt c/o chronic bloating and has been on PPIs for several years. I encouraged three hour spacing b/w meals, liquids outside of meals, chewing well, and discussing probiotic and testing for SIBO with primary care provider. We will continue to monitor every five days.
--- NOTE | 2020-02-27 17:05 | CONS_ITS ---
DATE OF CONSULTATION: 02/26/2020 HISTORY OF PRESENT ILLNESS: A 54-year-old right-handed female has been admitted to [facility] through the emergency room with the complaints of generalized weakness of several days duration in addition to complaint of severe headache and also so-called numbness of the whole body in addition to the possible intensity of the GERD, dizziness, shortness of breath, abdominal pain with vomiting. MEDICATIONS: At the time of visit include: 1. Aspirin 81 mg daily. 2. Atorvastatin 40 mg daily. 3. Citalopram 20 mg daily. 4. Clopidogrel 75 mg daily. 5. Pantoprazole 40 mg twice a day. 6. Glimepiride 4 mg twice a day. 7. units subcu at bedtime. 8. Ropinirole 2 mg t.i.d. 9. Magnesium oxide 400 daily. 10. Metoprolol 25 mg b.i.d. 11. Lisinopril 2.5 daily. 12. Jardiance daily. ALLERGIES: SHE IS ALLERGIC TO AZITHROMYCIN. SOCIAL HISTORY: She denies taking alcohol or drugs. LABORATORY DATA: GENERAL: Evaluation up until not documented, her to be awake, alert, cooperative, in no obvious acute distress. HEAD: Normocephalic with no cranial bruit. Ear, nose, throat examination normal. NECK: Supple with no cervical bruit. No thyromegaly. No lymphadenopathy. HEART: Regular with no murmur. LUNGS: Clear to auscultation. ABDOMEN: Soft, flabby with no organomegaly. Normal bowel sounds. NEUROLOGIC: She is awake, alert, oriented x3. Speech not dysphasic, not dysarthric, not dysphonic. Pupils round, regular. Still of vision full. Extraocular movements full. Face symmetrical. Tongue midline. Motor examination revealed her to have fairly normal strength and symmetric. Reflexes symmetrical. Plantar downgoing. There is no evidence of gross cerebellar deficit. Evaluation up until now documented relatively normal vital signs. CBC normal. Basic metabolic panel with blood sugar of 152. Chest x-ray with cardiomegaly. Head CT scan negative. The patient has been treated for further migraine in the emergency room with the migraine cocktail in addition to the IV fluid. At this stage, her neurological status is stable with no focal neurological deficit. Treatment will be continued as such. If she has not had any MRI in the past, and I will obtain the MRI. JEAN-PAUL UNDERWOOD M.D. RIB TRIM SEPARATOR RIB TRIM SEPARATOR D I MT: Jake
[2020-02-27 18:01] LABS: Glucose Point of Care 201 (65-105)
[2020-02-27] MEDS: INSULIN ASPART (*BKC) 100 UNITS/ML SUB-Q (18:03)
[2020-02-27] MEDS: INSULIN GLARGINE (*BKC) 100 UNITS/ML 14 UNITS SUB-Q (21:24)
[2020-02-27] MEDS: SODIUM CHLORIDE 0.9% IV 1,000 ML 75 ML IV CONT (22:23)
[2020-02-28] VITALS (7 sets, daily range): BP systolic 106–119; BP diastolic 66–71; PULSE 67–80; RESP 16–18; TEMP 36.6; O2SAT 94–96
[2020-02-28] MEDS: ACETAMINOPHEN 325 MG TABLET 650 MG PO (00:50)
[2020-02-28 01:01] LABS: Creatinine Urine 38.1 mg/dL
[2020-02-28 01:05] LABS: Sodium Urine Random 107 meq/L
[2020-02-28 01:31] LABS: Glucose Point of Care 240 (65-105)
[2020-02-28 06:33] LABS: Phosphorus 4.3 mg/dL (2.5-4.5)
[2020-02-28 06:35] LABS: Blood Urea Nitrogen 23 mg/dL (7-17); Calcium 8.3 mg/dL (8.4-10.2); Carbon Dioxide 22 mmol/L (22-30); Chloride 107 mmol/L (98-107); Estimated CRCL calculation 43 ml/min; Estimated Glomerular Filt Rate 46; Glucose 202 mg/dL (65-105); Magnesium 1.7 mg/dL (1.6-2.3); Potassium 4.7 mmol/L (3.4-5.0); Sodium 136 mmol/L (137-145)
[2020-02-28] MEDS: PANTOPRAZOLE 40 MG TABLET PO (08:07)
[2020-02-28] MEDS: FLUTICASONE PROPIONATE 0.05% NA SPR 16 GM BTL (*BKC) 1 SPRAY NASAL (08:07)
[2020-02-28] MEDS: LORATADINE 10 MG TABLET PO (08:08)
[2020-02-28] MEDS: rOPINIRole HCL 1 MG TABLET 2 MG PO ×2 (08:08→12:24)
[2020-02-28] MEDS: ASPIRIN 81 MG ENTERIC TABLET PO (08:08)
[2020-02-28] MEDS: CITALOPRAM HYDROBROMIDE 20 MG TABLET PO (08:08)
[2020-02-28] MEDS: ATORVASTATIN 40 MG TABLET PO (08:09)
[2020-02-28] MEDS: CLOPIDOGREL BISULFATE 75 MG TABLET PO (08:09)
[2020-02-28] MEDS: METOPROLOL TARTRATE 25 MG TABLET PO (08:10)
[2020-02-28 08:22] LABS: Folic Acid 11.8 ng/mL (2.76->20)
[2020-02-28 09:18] LABS: Glucose Point of Care 161 (65-105)
[2020-02-28] MEDS: GLIMEPIRIDE 2 MG TABLET PO (09:49)
[2020-02-28] MEDS: AMOXICILLIN 500 MG CAPSULE PO (11:31)
[2020-02-28 12:36] LABS: Glucose Point of Care 188 (65-105)
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
== END 2020-02-28 15:00 | disposition home or self-care (01) ==
LOC: ANHED 19:25 → ANH3MEDSUR 20:07
PROVIDERS: Physician Assistant; Admitting Provider Internal Medicine; Emergency Provider Emergency Medicine; PCP Nurse Practitioner Family; Visit Provider Family Medicine
DX: N17.9 Acute kidney failure, unspecified (principal); J01.90 Acute sinusitis, unspecified; B97.89 Other viral agents as the cause of diseases classified elsewhere; G43.909 Migraine, unspecified, not intractable, without status migrainosus; L40.9 Psoriasis, unspecified; E86.0 Dehydration; R20.2 Paresthesia of skin; R53.1 Weakness; E11.40 Type 2 diabetes mellitus with diabetic neuropathy, unspecified; E78.5 Hyperlipidemia, unspecified; I11.0 Hypertensive heart disease with heart failure; I50.9 Heart failure, unspecified; I25.10 Atherosclerotic heart disease of native coronary artery without angina pectoris; F41.8 Other specified anxiety disorders; I25.2 Old myocardial infarction; G25.81 Restless legs syndrome; E55.9 Vitamin D deficiency, unspecified; M19.90 Unspecified osteoarthritis, unspecified site; K21.9 Gastro-esophageal reflux disease without esophagitis; L30.9 Dermatitis, unspecified; I44.30 Unspecified atrioventricular block; Z79.4 Long term (current) use of insulin; Z95.5 Presence of coronary angioplasty implant and graft; Z95.0 Presence of cardiac pacemaker; Z79.02 Long term (current) use of antithrombotics/antiplatelets; Z79.82 Long term (current) use of aspirin
CPT/HCPCS: 36415; 70450; 71046; 80048; 80053; 81001; 82570; 82607; 82746; 83735; 84100; 84300; 84484; 85025; 93005; 96360; 96361; 96365; 96375; 99285; A9270; C9113; G0378; G0379; J0131; J1200; J1815; J2765; J7030

== ENCOUNTER 2020-03-25 11:42 | Emergency (ER) | payer OTHER, SELFPAY ==
[2020-03-25] VITALS (8 sets, daily range): BP systolic 114–149; BP diastolic 66–78; PULSE 71–108; RESP 14–93; TEMP 36.4; O2SAT 20–100
--- NOTE | ~2020-03-25 | XR_ITS ---
EXAMINATION: XR chest 2V EXAM DATE: 03/25/2020 12:21 INDICATION: Abdominal pain, chest pain, heartburn. TECHNIQUE: Frontal and lateral projections of the chest obtained and reviewed. Comparison is made to prior examination from 02/26/2020. FINDINGS: Sternotomy wires are present without findings to suggest sternal dehiscence. Cardiac pacema ker or monitoring device. Borderline cardiomegaly and pulmonary vascular congestion. No confluent con solidation, pneumothorax or pleural effusion suspected. There are no osseous abnormalities identified . There is no significant interval change. IMPRESSION: Borderline cardiomegaly and pulmonary vascular congestion. Reviewed, dictated and finalized at location A.
--- NOTE | 2020-03-25 11:50 | ECG_ITS ---
Measurements Intervals [place] Rate: 73 P: 27 [place]: 196 QRS: -51 QRSD: 192 T: 89 QT: 487 QTc: 537 Interpretive Statements ELECTRONIC ATRIAL PACEMAKER ELECTRONIC VENTRICULAR PACEMAKER NO FURTHER INTERPRETATION IS POSSIBLE ATYPICAL ECG Electronically Signed On 03-25-2020 12:00:36 CDT by Armando Goff D.O.
[2020-03-25] MEDS: ASPIRIN 81 MG CHEWABLE TABLET 324 MG PO (12:00)
--- NOTE | 2020-03-25 12:00 | PC.NURSE ---
PT ALREADY TOOK X1 81MG ASA TODAY
--- NOTE | 2020-03-25 12:07 | PC.NURSE ---
LIZ KELLY AT BEDSIDE FOR ASSESSMENT.
[2020-03-25 12:19] LABS: Basophils Percent Auto 0.4 % (0.2-1.2); Eosinophils Absolute Auto 0.1 K/mm3 (0-0.3); Eosinophils Percent Auto 1.7 % (0-4.4); Hemoglobin 13.5 g/dL (12.0-15.0); Immature Granulocyte Absolute 0.01 K/mm3 (0.00-0.031); Immature Granulocyte Percent A 0.2 % (0-0.5); Lymphocytes Absolute Auto 0.98 K/mm3 (0.9-3.2); Lymphocytes Percent Auto 18.8 % (18.3-44.2); Mean Corpuscular HGB Conc 32.1 g/dl (32-36); Mean Corpuscular Volume 87.1 fl (80-100); Mean Platelet Volume 10.7 fl (7.4-10.4); Monocytes Absolute Auto 0.5 K/mm3 (0.1-0.6); Monocytes Percent Auto 9.2 % (2.6-8.5); Neutrophils Absolute Auto 3.6 K/mm3 (1.3-6.7); Neutrophils Percent Auto 69.7 % (45.5-73.1); Platelet Count Result 252 k/mm3 (150-375); Red Blood Count 4.82 M/mm3 (4.2-5.4); Red Cell Distribution Width 12.6 % (11.5-14.5); White Blood Count 5.2 K/mm3 (4.5-10.0)
[2020-03-25] MEDS: LIDOCAINE HCL 2% VISC SOLN 15 ML UDC 20 ML PO (12:24)
[2020-03-25] MEDS: FAMOTIDINE 20 MG/2 ML VIAL IV PUSH (12:24)
[2020-03-25] MEDS: MAG HYDROX/AL HYDROX/SIMETH 30 ML UDC PO (12:24)
[2020-03-25 12:32] LABS: Blood Urea Nitrogen 29 mg/dL (7-17); Calcium 9.2 mg/dL (8.4-10.2); Carbon Dioxide 28 mmol/L (22-30); Chloride 101 mmol/L (98-107); Estimated CRCL calculation 44 ml/min; Estimated Glomerular Filt Rate 46; Glucose 173 mg/dL (65-105); Sodium 137 mmol/L (137-145)
--- NOTE | 2020-03-25 12:33 | ED.GENADULT ---
HPI - General Adult General Chief complaint: Chest Pain <NYA Lamar Last Filed: 03/25/20 13:51> Stated complaint: abd pain, body aches, weak <NYA Lamar Last Filed: 03/25/20 13:51> Time Seen by Provider: 03/25/20 11:51 <NYA Lamar Last Filed: 03/25/20 13:51> Source: patient <NYA Lamar Last Filed: 03/25/20 13:51> Mode of arrival: ambulatory <NYA Lamar Last Filed: 03/25/20 13:51> Limitations: no limitations <NYA Lamar Last Filed: 03/25/20 13:51> History of Present Illness HPI narrative: Patient is a 54-year-old female who presents to emergency department for evaluation of epigastric chest discomfort noting that she has had GI upset with history of reflux which has been worse over the last several days has had some congestion and rhinorrhea dry cough during this. Denies any sick contacts or exposures to COVID patient with history of kidney disease and heart disease followed by primary care and cardiology. Patient believes her symptoms are likely due to her reflux. Denies chest pain otherwise shortness of breath or any urinary bowel changes specifically no melena or rectal bleeding. Patient believes that it may be her poor dentition <NYA Lamar Last Filed: 03/25/20 13:51> Related Data Home medications: Home Medications Medication Instructions Recorded Confirmed aspirin [Adult Low Dose Aspirin] 81 mg PO DAILY 07/05/19 02/27/20 citalopram 20 mg PO DAILY 07/05/19 02/27/20 clopidogrel [Plavix] 75 mg PO DAILY 07/05/19 02/27/20 nitroglycerin [Nitrostat] 0.4 mg SUBLINGUAL Q5-15M PRN 07/05/19 02/27/20 pantoprazole 40 mg PO BID 07/05/19 02/27/20 Salena Castillo U-100 Insulin 20 unit SUBCUT HS 08/20/19 02/27/20 glimepiride 4 mg PO BID 08/20/19 02/27/20 ropinirole 2 mg PO TID 08/20/19 02/27/20 magnesium oxide 400 mg PO DAILY 10/12/19 02/27/20 metoprolol tartrate 25 mg PO BID 10/12/19 02/27/20 lisinopril 2.5 mg PO DAILY 01/13/20 02/27/20 Allergy Relief (cetirizine) 10 mg BYMOUTH DAILY 02/27/20 02/27/20 atorvastatin 40 mg PO DAILY 02/27/20 02/27/20 <Pedro Kirk PA-C - Last Filed: 03/25/20 13:51> Allergies/adverse reactions: Allergies Allergy/AdvReac Type Severity Reaction Status Date / Time azithromycin Allergy Severe Gastrointestinal Verified 03/25/20 11:56 Upset <Pedro Kirk PA-C - Last Filed: 03/25/20 13:51> Review of Systems Review of Systems: All systems reviewed & are unremarkable except as noted in HPI and below <Pedro Kirk PA-C - Last Filed: 03/25/20 13:51> [facility] Past Medical History Medical History: Medical History Anemia With history of blood transfusion. AV block Status post atrial pacemaker insertion. CHF (congestive heart failure) Coronary artery disease (~11/2017) Cardiac catheterization per Dr. Montalvo demonstrated distal 1st diagonal vessel total occlusion status post angioplasty and stent placement. Depression with anxiety Diabetic peripheral neuropathy Eczema Gastroesophageal reflux disease Hyperlipidemia Hypertension Insulin dependent type 2 diabetes mellitus Hemoglobin A1c was 9.8% in July 2019. Myocardial infarction x2 Osteoarthritis Previous known suicide attempt Restless leg syndrome Seasonal allergies Septal defect Patient on certain whether this was an ASD or VSD repair, done at the age of 39. Valvular heart disease Status post mitral valve repair. ADARSH September 18, 2019 showed moderate to severe mitral valve calcification with decreased movement and evidence of moderate mitral valve regurgitation. Vitamin D deficiency <Pedro Kirk PA-C - Last Filed: 03/25/20 13:51> Surgical History Surgical History: Surgical History History of History of cardiac catheterization (~12/17
[2020-03-25 12:34] LABS: Prothrombin Time 13.1 Seconds (11.1-14.7)
[2020-03-25 12:35] LABS: Partial Thromboplastin Time 28.1 SECONDS (22.3-36.8)
[2020-03-25 12:44] LABS: Troponin I < 0.012 ng/mL (0.000-0.034)
--- NOTE | 2020-03-25 12:45 | PC.NURSE ---
PT AMBULATORY TO RESTROOM WITH STEADY GAIT TO ATTEMPT TO URINATE. PT UNABLE TO PROVIDE SAMPLE AT THIS TIME.
[2020-03-25 12:54] LABS: Alanine Aminotransferase 21 U/L (4-35); Albumin Level 4.3 g/dL (3.5-5.1); Alkaline Phosphatase 129 U/L (38-126); Aspartate Amino Transferase 25 U/L (14-36); Bilirubin,Total 0.5 mg/dL (0.2-1.3); Lipase 58 U/L (23-300)
[2020-03-25 12:58] LABS: NT Pro B Type Natriuretic Pept 589 PG/ML (5-100)
[2020-03-25] MEDS: SODIUM CHLORIDE 0.9% IV 500 ML 999 ML IV CONT (13:29)
== END 2020-03-25 14:58 | disposition home or self-care (01) ==
PROVIDERS: Emergency Medicine Emergency Medical Services; Emergency Provider Emergency Medicine; PCP Nurse Practitioner Family
DX: J32.9 Chronic sinusitis, unspecified (principal); K02.9 Dental caries, unspecified; Z86.2 Personal history of diseases of the blood and blood-forming organs and certain disorders involving the immune mechanism; I50.9 Heart failure, unspecified; I11.0 Hypertensive heart disease with heart failure; I25.10 Atherosclerotic heart disease of native coronary artery without angina pectoris; E11.42 Type 2 diabetes mellitus with diabetic polyneuropathy; K21.9 Gastro-esophageal reflux disease without esophagitis; E78.5 Hyperlipidemia, unspecified; I25.2 Old myocardial infarction; G25.81 Restless legs syndrome; E55.9 Vitamin D deficiency, unspecified; Z95.0 Presence of cardiac pacemaker; Z95.5 Presence of coronary angioplasty implant and graft; Z79.82 Long term (current) use of aspirin; Z79.02 Long term (current) use of antithrombotics/antiplatelets; Z79.84 Long term (current) use of oral hypoglycemic drugs; Z79.4 Long term (current) use of insulin
CPT/HCPCS: 36415; 71046; 80048; 80076; 83690; 83880; 84484; 85025; 85610; 85730; 93005; 96361; 96365; 96375; 99284; A9270; J0131; J7040

== ENCOUNTER 2020-06-01 11:22 | Emergency (ER) | payer OTHER, SELFPAY ==
[2020-06-01] VITALS (9 sets, daily range): BP systolic 134; BP diastolic 63–67; PULSE 70–88; RESP 16–27; TEMP 36.4; O2SAT 94–97
--- NOTE | ~2020-06-01 | XR_ITS ---
EXAMINATION: XR chest 2V EXAM DATE: 06/01/2020 12:16 INDICATION: Weakness. TECHNIQUE: Portable AP frontal chest x-ray was obtained. Comparison is made to prior examination from 03/25/2020. FINDINGS: Sternotomy wires are present without findings to suggest sternal dehiscence. The cardiac si lhouette is enlarged. There is pulmonary vascular congestion. No confluent consolidation, pneumothora x or pleural effusion suspected. There are no osseous abnormalities identified. IMPRESSION: 1. Cardiomegaly, pulmonary vascular congestion. Reviewed, dictated and finalized at location A.
--- NOTE | 2020-06-01 11:48 | ECG_ITS ---
Measurements Intervals [place] Rate: 78 P: CT: 0 QRS: -51 QRSD: 186 T: 29 QT: 507 QTc: 581 Interpretive Statements ATRIAL SENSE- ELECTRONIC VENTRICULAR PACEMAKER BASELINE ARTIFACT- I, II, III, AVR, AVL, AVF, V6 NO FURTHER INTERPRETATION IS POSSIBLE ATYPICAL ECG Electronically Signed On 06-01-2020 15:09:08 CDT by Armando Goff D.O.
--- NOTE | 2020-06-01 12:04 | ED.WEAKNESS ---
HPI - Weakness General Chief complaint: Weakness Stated complaint: congestion/weakness x 2wks Time Seen by Provider: 06/01/20 12:01 History of Present Illness HPI Narrative: 54 yo female with h/o ischemic cardiomyopathy, HTN, DM, depression, anxiety presents to the ED for multiple complaints. SHe says that for the past 2 weeks she has been fatigued and SOB. The SOB is worst at night and keeps her from sleeping. SHe also reports falling asleep frequently throughout the day. She says that she is supposed to be evaluated for sleep apnea. She also reports occasional pressure in her chest. None at this time. She also has sinus congestion and driange, which she feels is causing her to be nauseated. She has recently been on antibiotics for a sinus infection. She has not seen her PCP for any of this. She has an appointment with her committee member in 10 days. Related Data Home Medications Medication Instructions Recorded Confirmed aspirin [Adult Low Dose Aspirin] 81 mg PO DAILY 07/05/19 02/27/20 citalopram 20 mg PO DAILY 07/05/19 02/27/20 clopidogrel [Plavix] 75 mg PO DAILY 07/05/19 02/27/20 nitroglycerin [Nitrostat] 0.4 mg SUBLINGUAL Q5-15M PRN 07/05/19 02/27/20 pantoprazole 40 mg PO BID 07/05/19 02/27/20 Basaglar KwikPen U-100 Insulin 20 unit SUBCUT HS 08/20/19 02/27/20 glimepiride 4 mg PO BID 08/20/19 02/27/20 ropinirole 2 mg PO TID 08/20/19 02/27/20 magnesium oxide 400 mg PO DAILY 10/12/19 02/27/20 metoprolol tartrate 25 mg PO BID 10/12/19 02/27/20 lisinopril 2.5 mg PO DAILY 01/13/20 02/27/20 Allergy Relief (cetirizine) 10 mg BYMOUTH DAILY 02/27/20 02/27/20 atorvastatin 40 mg PO DAILY 02/27/20 02/27/20 Allergies Allergy/AdvReac Type Severity Reaction Status Date / Time azithromycin Allergy Severe Gastrointestinal Verified 06/01/20 11:36 Upset Review of Systems Review of Systems: All systems reviewed & are unremarkable except as noted in HPI and below Constitutional: Constitutional: Reports chills, Reports fatigue, Denies fever(s) and Reports weakness Eyes: Eyes: Denies change in vision ENT: Reports sore throat Cardiovascular: Cardiovascular: Reports chest pain Respiratory: Respiratory: Reports chest congestion, Denies cough, Reports dyspnea and Reports wheezing Gastrointestinal: Gastrointestinal: Denies abdominal pain, Denies constipation, Denies diarrhea, Reports nausea and Denies vomiting Genitourinary: Genitourinary: Reports nocturia and Denies dysuria Musculoskeletal: Musculoskeletal: Reports myalgias Neurologic: Denies confusion, Reports headache(s) and Reports weakness Psychiatric: Psychiatric: Reports anxiety and Reports depression [facility] Past Medical History Medical History Anemia With history of blood transfusion. AV block Status post atrial pacemaker insertion. CHF (congestive heart failure) Coronary artery disease (~11/2017) Cardiac catheterization per Dr. Montalvo demonstrated distal 1st diagonal vessel total occlusion status post angioplasty and stent placement. Depression with anxiety Diabetic peripheral neuropathy Eczema Gastroesophageal reflux disease Hyperlipidemia Hypertension Insulin dependent type 2 diabetes mellitus Hemoglobin A1c was 9.8% in July 2019. Myocardial infarction x2 Osteoarthritis Previous known suicide attempt Restless leg syndrome Seasonal allergies Septal defect Patient on certain whether this was an ASD or VSD repair, done at the age of 39. Valvular heart disease Status post mitral valve repair. ADARSH September 18, 2019 showed moderate to severe mitral valve calcification with decreased movement and evidence of moderate mitral valve regurgitation. Vitamin D deficiency Surgical History Surgical History History of History of cardiac catheterization (~11/2017) Status post angioplasty and stent placement to distal 1st diagonal per Dr. Rivera
[2020-06-01 12:07] LABS: Basophils Percent Auto 0.5 % (0.2-1.2); Eosinophils Absolute Auto 0.2 K/mm3 (0-0.3); Eosinophils Percent Auto 3.5 % (0-4.4); Hematocrit 37.4 % (37.0-47.0); Hemoglobin 12.1 g/dL (12.0-15.0); Immature Granulocyte Absolute 0.02 K/mm3 (0.00-0.031); Immature Granulocyte Percent A 0.3 % (0-0.5); Lymphocytes Absolute Auto 0.72 K/mm3 (0.9-3.2); Lymphocytes Percent Auto 12.1 % (18.3-44.2); Mean Corpuscular HGB Conc 32.4 g/dl (32-36); Mean Corpuscular Hemoglobin 27.9 pg (26-34); Mean Corpuscular Volume 86.4 fl (80-100); Mean Platelet Volume 10.8 fl (7.4-10.4); Monocytes Absolute Auto 0.4 K/mm3 (0.1-0.6); Monocytes Percent Auto 7.1 % (2.6-8.5); Neutrophils Absolute Auto 4.5 K/mm3 (1.3-6.7); Neutrophils Percent Auto 76.5 % (45.5-73.1); Platelet Count Result 260 k/mm3 (150-375); Red Blood Count 4.33 M/mm3 (4.2-5.4); Red Cell Distribution Width 14.7 % (11.5-14.5); White Blood Count 5.9 K/mm3 (4.5-10.0)
[2020-06-01 12:24] LABS: Alanine Aminotransferase 51 U/L (4-35); Albumin Level 4.1 g/dL (3.5-5.1); Alkaline Phosphatase 151 U/L (38-126); Anion Gap 11 mmol/L (8-16); Aspartate Amino Transferase 37 U/L (14-36); Bilirubin,Total 1.2 mg/dL (0.2-1.3); Blood Urea Nitrogen 28 mg/dL (7-17); Calcium 8.7 mg/dL (8.4-10.2); Carbon Dioxide 25 mmol/L (22-30); Chloride 104 mmol/L (98-107); Estimated CRCL calculation 53 ml/min; Estimated Glomerular Filt Rate 57; Glucose 313 mg/dL (65-105); Potassium 4.3 mmol/L (3.4-5.0); Sodium 140 mmol/L (137-145)
[2020-06-01] MEDS: FUROSEMIDE INJ 40 MG/4 ML VIAL IV PUSH (12:50)
[2020-06-01 13:33] LABS: Add Urine Microscopic? YES; Appearance Urine Clear (Clear); Bilirubin Urine Negative (Negative); Blood Urine Negative (Negative); Color Urine Colorless (Yellow); Glucose Urine UA 2+ mg/dL (Negative); Ketones Urine Negative (Negative); Leukocyte Esterase Ur Negative LEU/UL (Negative); Nitrate Urine Negative (Negative); Protein Urine Negative (Negative); RBC Urine 0-2 /hpf (0-2); Specific Grav Ur 1.011 (1.001-1.035); Squamous Epithelial Cell Urine Occasional /hpf (Few); Urobilinogen Urine Negative mg/dL (<2.0); WBC Urine 0-3 /hpf
== END 2020-06-01 14:41 | disposition home or self-care (01) ==
PROVIDERS: Emergency Medicine; Emergency Provider Emergency Medicine; PCP Nurse Practitioner Family
DX: R53.81 Other malaise (principal); R53.83 Other fatigue; I25.5 Ischemic cardiomyopathy; I11.0 Hypertensive heart disease with heart failure; I50.9 Heart failure, unspecified; I25.10 Atherosclerotic heart disease of native coronary artery without angina pectoris; F41.8 Other specified anxiety disorders; E11.42 Type 2 diabetes mellitus with diabetic polyneuropathy; K21.9 Gastro-esophageal reflux disease without esophagitis; I25.2 Old myocardial infarction; M19.90 Unspecified osteoarthritis, unspecified site; G25.81 Restless legs syndrome; E55.9 Vitamin D deficiency, unspecified; Z95.0 Presence of cardiac pacemaker; Z86.2 Personal history of diseases of the blood and blood-forming organs and certain disorders involving the immune mechanism; Z79.02 Long term (current) use of antithrombotics/antiplatelets; Z79.84 Long term (current) use of oral hypoglycemic drugs; Z79.82 Long term (current) use of aspirin; I51.7 Cardiomegaly; R09.89 Other specified symptoms and signs involving the circulatory and respiratory systems
CPT/HCPCS: 36415; 71046; 80053; 81001; 85025; 93005; 96374; 99284; J1940

== ENCOUNTER 2020-07-10 16:02 | Emergency (ER) | payer OTHER, SELFPAY ==
[2020-07-10 17:12] VITALS: BP 121/77; PULSE 74; RESP 18; TEMP 36.4; O2SAT 98
[2020-07-10 17:57] LABS: Glucose Point of Care 291 (65-105)
[2020-07-10 18:13] LABS: Alanine Aminotransferase 21 U/L (4-35); Albumin Level 4.1 g/dL (3.5-5.1); Alkaline Phosphatase 169 U/L (38-126); Anion Gap 8 mmol/L (8-16); Aspartate Amino Transferase 23 U/L (14-36); Bilirubin,Total 0.6 mg/dL (0.2-1.3); Blood Urea Nitrogen 44 mg/dL (7-17); Calcium 8.9 mg/dL (8.4-10.2); Carbon Dioxide 30 mmol/L (22-30); Chloride 97 mmol/L (98-107); Estimated CRCL calculation 45 ml/min; Estimated Glomerular Filt Rate 46; Glucose 325 mg/dL (65-105); Magnesium 1.8 mg/dL (1.6-2.3); Phosphorus 4.3 mg/dL (2.5-4.5); Potassium 4.6 mmol/L (3.4-5.0); Sodium 135 mmol/L (137-145)
[2020-07-10 18:18] LABS: Beta-Hydroxybutyrate/Acetoacetate 0.06 mmol/L (0.02-0.27)
[2020-07-10 18:33] LABS: Acetaminophen < 10 ug/mL (10-30); Ethanol < 10 mg/dL (<10); Salicylate < 1.0 mg/dL (2-20)
[2020-07-10 18:34] LABS: Add Urine Microscopic? YES; Appearance Urine Clear (Clear); Bilirubin Urine Negative (Negative); Blood Urine Negative (Negative); Color Urine Straw (Yellow); Glucose Urine UA 3+ mg/dL (Negative); Ketones Urine Negative (Negative); Leukocyte Esterase Ur Negative LEU/UL (Negative); Nitrate Urine Negative (Negative); Protein Urine Negative (Negative); RBC Urine 0-2 /hpf (0-2); Specific Grav Ur 1.015 (1.001-1.035); Squamous Epithelial Cell Urine Rare /hpf (Few); Urobilinogen Urine Negative mg/dL (<2.0); WBC Urine 0-3 /hpf
[2020-07-10] MEDS: SODIUM CHLORIDE 0.9% IV 1,000 ML 999 ML IV CONT (18:45)
[2020-07-10 18:53] LABS: Amphetamine Screen Urine Negative (Negative); Barbiturate Screen Urine Negative (Negative); Benzodiazepines Screen Urine Negative (Negative); Cannabinoid Screen Urine Negative (Negative); Cocaine Screen Urine Negative (Negative); Methadone Screen Urine Negative (Negative); Opiate Screen Urine Negative (Negative); Phencyclidine Screen Urine Negative (Negative)
[2020-07-10 19:01] LABS: Basophils Percent Auto 0.5 % (0.2-1.2); Eosinophils Absolute Auto 0.1 K/mm3 (0-0.3); Eosinophils Percent Auto 1.2 % (0-4.4); Hematocrit 41.6 % (37.0-47.0); Hemoglobin 13.4 g/dL (12.0-15.0); Immature Granulocyte Absolute 0.02 K/mm3 (0.00-0.031); Immature Granulocyte Percent A 0.3 % (0-0.5); Lymphocytes Absolute Auto 0.94 K/mm3 (0.9-3.2); Lymphocytes Percent Auto 16.1 % (18.3-44.2); Mean Corpuscular HGB Conc 32.2 g/dl (32-36); Mean Corpuscular Hemoglobin 27.1 pg (26-34); Mean Corpuscular Volume 84.2 fl (80-100); Mean Platelet Volume 11.1 fl (7.4-10.4); Monocytes Absolute Auto 0.5 K/mm3 (0.1-0.6); Monocytes Percent Auto 7.7 % (2.6-8.5); Neutrophils Absolute Auto 4.3 K/mm3 (1.3-6.7); Neutrophils Percent Auto 74.2 % (45.5-73.1); Platelet Count Result 260 k/mm3 (150-375); Red Blood Count 4.94 M/mm3 (4.2-5.4); Red Cell Distribution Width 13.2 % (11.5-14.5); White Blood Count 5.8 K/mm3 (4.5-10.0)
--- NOTE | 2020-07-10 19:20 | ED.GENADULT ---
HPI - General Adult General Chief complaint: Recheck/Abnormal Lab/Rx Stated complaint: High blood glucose Time Seen by Provider: 07/10/20 17:47 History of Present Illness HPI narrative: Patient is a 54-year-old female who presents the emergency department with chief complaint of elevated blood sugar. Patient reports she has history of diabetes and reports that they have changed her insulin recently. The patient states that she takes a long-acting insulin once a day states that she is also had a recent sinus infection of which she is on antibiotics and also has had a yeast infection and a fungal infection in her skin folds. Patient is currently on topical antifungals and also taking amoxicillin for the sinus infection. Patient incidentally also reports that she has been extremely anxious and extremely depressed and reports that she is concerned because her house has a ghost that lives in it. Patient states the ghost frequently attacks are and makes it where she can no longer sleep in her bedroom and has to sleep downstairs in the living room Related Data Home Medications Medication Instructions Recorded Confirmed aspirin [Adult Low Dose Aspirin] 81 mg PO DAILY 07/05/19 02/27/20 citalopram 20 mg PO DAILY 07/05/19 02/27/20 clopidogrel [Plavix] 75 mg PO DAILY 07/05/19 02/27/20 nitroglycerin [Nitrostat] 0.4 mg SUBLINGUAL Q5-15M PRN 07/05/19 02/27/20 pantoprazole 40 mg PO BID 07/05/19 02/27/20 Basaglar KwikPen U-100 Insulin 20 unit SUBCUT HS 08/20/19 02/27/20 glimepiride 4 mg PO BID 08/20/19 02/27/20 ropinirole 2 mg PO TID 08/20/19 02/27/20 magnesium oxide 400 mg PO DAILY 10/12/19 02/27/20 metoprolol tartrate 25 mg PO BID 10/12/19 02/27/20 lisinopril 2.5 mg PO DAILY 01/13/20 02/27/20 Allergy Relief (cetirizine) 10 mg BYMOUTH DAILY 02/27/20 02/27/20 atorvastatin 40 mg PO DAILY 02/27/20 02/27/20 Allergies Allergy/AdvReac Type Severity Reaction Status Date / Time azithromycin Allergy Severe Gastrointestinal Verified 06/01/20 11:36 Upset Review of Systems Review of Systems: Narrative: CONSTITUTIONAL: Denies fever, chills, or sweats. EYES: Denies visual changes, redness, or discharge. ENT: Denies rhinorrhea, congestion, sore throat, or otalgia. CARDIOVASCULAR: Denies chest pain, palpitations, or edema. RESPIRATORY: Denies cough or dyspnea. GASTROINTESTINAL: Denies abdominal pain, nausea, vomiting, or diarrhea. GENITOURINARY: Denies dysuria or hematuria. SKIN: Denies rash or itching. MUSCULOSKELETAL: Denies back pain, joint pain, or myalgia. NEUROLOGIC: Denies headache, numbness, or weakness. PSYCHIATRIC: Denies anxiety or depression. All systems reviewed & are unremarkable except as noted in HPI and below PMFSH Past Medical History Medical History (Updated 07/10/20 @ 20:04 by Wilfred Hernandez MD) Anemia With history of blood transfusion. AV block Status post atrial pacemaker insertion. CHF (congestive heart failure) Coronary artery disease (~11/2017) Cardiac catheterization per Dr. Montalvo demonstrated distal 1st diagonal vessel total occlusion status post angioplasty and stent placement. Depression with anxiety Diabetic peripheral neuropathy Eczema Gastroesophageal reflux disease Hyperlipidemia Hypertension Insulin dependent type 2 diabetes mellitus Hemoglobin A1c was 9.8% in July 2019. Myocardial infarction x2 Osteoarthritis Previous known suicide attempt Restless leg syndrome Seasonal allergies Septal defect Patient on certain whether this was an ASD or VSD repair, done at the age of 39. Valvular heart disease Status post mitral valve repair. ADARSH September 18, 2019 showed moderate to severe mitral valve calcification with decreased movement and evidence of moderate mitral valve regurgitation. Vitamin D deficiency Surgical History Surgical History History of History of cardiac catheterization (~11/2017) Status post angioplasty a
[2020-07-10 20:30] VITALS: BP 116/78; PULSE 75; RESP 18; TEMP 36.7; O2SAT 100
== END 2020-07-10 20:35 | disposition home or self-care (01) ==
PROVIDERS: Emergency Medicine; Emergency Provider Emergency Medicine; PCP Nurse Practitioner Family
DX: E11.65 Type 2 diabetes mellitus with hyperglycemia (principal); Z79.4 Long term (current) use of insulin; D64.9 Anemia, unspecified; I11.0 Hypertensive heart disease with heart failure; I50.9 Heart failure, unspecified; I25.10 Atherosclerotic heart disease of native coronary artery without angina pectoris; E78.5 Hyperlipidemia, unspecified; I25.2 Old myocardial infarction; M19.90 Unspecified osteoarthritis, unspecified site; K21.9 Gastro-esophageal reflux disease without esophagitis
CPT/HCPCS: 36415; 80053; 80307; 81001; 82010; 82948; 83735; 84100; 84443; 85025; 99284; J7030

== ENCOUNTER 2020-08-03 11:49 | Observation (INO) | payer OTHER, SELFPAY ==
[2020-08-03] VITALS (11 sets, daily range): BP systolic 102–136; BP diastolic 59–80; PULSE 71–95; RESP 16–22; TEMP 36–36.5; O2SAT 97–100; BMI 37.0
--- NOTE | ~2020-08-03 | XR_ITS ---
XR chest 2V 08/03/2020 13:05 Indication: Dyspnea. Weakness. Procedure: PA and lateral views of the chest Comparison: Comparison to multiple prior studies sequentially, with oldest reviewed study dated 11/13. Findings: Borderline heart size. Status post median sternotomy for CABG. There are defibrillator lead s. No focal air space disease, pulmonary edema, pleural effusion or suspected pneumothorax. Impression: 1: No acute cardiopulmonary disease. Reviewed, dictated and finalized at location A. ER Impression: 1: No acute cardiopulmonary disease.
--- NOTE | 2020-08-03 12:15 | ED.GENADULT ---
HPI - General Adult General Chief complaint: Chest Pain Stated complaint: jimmie felt good in a week Time Seen by Provider: 08/03/20 12:14 Source: patient Mode of arrival: ambulatory Limitations: no limitations History of Present Illness HPI narrative: Patient is a 54-year-old female complaining of chest pain, substernal, described as indigestion , started this morning. Patient states that her discomfort was moderate but now resolved. Patient also states that she had difficulty swallowing this morning felt like something was stuck in her throat but now also resolved patient able to swallow liquids and solids. Patient denies any shortness of breath, abdominal pain, nausea, vomiting but admits to having diarrhea for the past 2 days. Patient denies any fever or chills. MD complaint: Patient is a 54-year-old female complaining of substernal chest pain Related Data Home Medications Medication Instructions Recorded Confirmed aspirin [Adult Low Dose Aspirin] 81 mg PO DAILY 07/05/19 02/27/20 citalopram 20 mg PO DAILY 07/05/19 02/27/20 clopidogrel [Plavix] 75 mg PO DAILY 07/05/19 02/27/20 nitroglycerin [Nitrostat] 0.4 mg SUBLINGUAL Q5-15M PRN 07/05/19 02/27/20 pantoprazole 40 mg PO BID 07/05/19 02/27/20 Basaglar KwikPen U-100 Insulin 20 unit SUBCUT HS 08/20/19 02/27/20 glimepiride 4 mg PO BID 08/20/19 02/27/20 ropinirole 2 mg PO TID 08/20/19 02/27/20 magnesium oxide 400 mg PO DAILY 10/12/19 02/27/20 metoprolol tartrate 25 mg PO BID 10/12/19 02/27/20 lisinopril 2.5 mg PO DAILY 01/13/20 02/27/20 Allergy Relief (cetirizine) 10 mg BYMOUTH DAILY 02/27/20 02/27/20 atorvastatin 40 mg PO DAILY 02/27/20 02/27/20 Allergies Allergy/AdvReac Type Severity Reaction Status Date / Time azithromycin Allergy Severe Gastrointestinal Verified 08/03/20 11:50 Upset Review of Systems Review of Systems: All systems reviewed & are unremarkable except as noted in HPI and below Constitutional: Constitutional: Denies body ache(s), Denies chills, Denies excessive sweating, Denies fatigue, Denies fever(s), Denies headache(s), Denies lethargy, Denies malaise, Denies weakness and Denies weight loss Eyes: Eyes: Denies blurry vision, Denies change in vision and Denies loss of vision ENT: Denies dizziness, Denies ear discharge, Denies headache(s), Denies lip swelling, Denies epistaxis, Denies nasal congestion, Denies neck pain, Denies throat swelling and Denies tongue swelling Cardiovascular: Cardiovascular: Denies diaphoresis, Denies rapid heart rate, Denies edema, Denies irregular heart rhythm, Denies lightheadedness, Denies palpitations, Denies dyspnea and Denies dyspnea on exertion Respiratory: Respiratory: Denies chest congestion, Denies cough, Denies hemoptysis, Denies dyspnea and Denies dyspnea on exertion Gastrointestinal: Gastrointestinal: Denies abdominal pain, Denies melena, Denies hematochezia, Denies diarrhea, Denies nausea, Denies vomiting and Denies hematemesis Musculoskeletal: Musculoskeletal: Denies abnormal gait, Denies deformity, Denies joint swelling, Denies limited range of motion, Denies neck pain and Denies numbness Neurologic: Denies Abnormal speech present, Denies abnormal gait, Denies confusion, Denies dizziness, Denies headache(s), Denies focal weakness, Denies loss of vision, Denies numbness, Denies Other visual disturbances, Denies Sensory deficit (Neuro) and Denies weakness Psychiatric: Psychiatric: Denies confusion, Denies depression, Denies auditory hallucinations, Denies homicidal ideation and Denies suicidal ideation Endocrine: Endocrine: Denies cold intolerance, Denies excessive sweating, Denies fatigue, Denies heat intolerance and Denies palpitations Hematologic/Lymphatic: Hematologic/Lymphatic: Denies easy bleeding and Denies easy bruising Allergic/Immunologic: Allergic/Immunologic: Denies lip swelling, Denies throat swelling and Denies tongue swelling [facility] Past Medical History Medical History (Updated 08/03/20 @ 14:48 by Breann
[2020-08-03] MEDS: SODIUM CHLORIDE 0.9% IV 1,000 ML 999 ML IV CONT ×2 (12:37→15:37)
[2020-08-03] MEDS: ASPIRIN 81 MG CHEWABLE TABLET 324 MG PO (12:42)
[2020-08-03 13:28] LABS: Basophils Percent Auto 0.4 % (0.2-1.2); Eosinophils Absolute Auto 0.1 K/mm3 (0-0.3); Eosinophils Percent Auto 2.6 % (0-4.4); Hematocrit 38.8 % (37.0-47.0); Hemoglobin 12.3 g/dL (12.0-15.0); Immature Granulocyte Absolute 0.01 K/mm3 (0.00-0.031); Immature Granulocyte Percent A 0.2 % (0-0.5); Lymphocytes Absolute Auto 0.88 K/mm3 (0.9-3.2); Lymphocytes Percent Auto 19.1 % (18.3-44.2); Mean Corpuscular HGB Conc 31.7 g/dl (32-36); Mean Corpuscular Hemoglobin 27.2 pg (26-34); Mean Corpuscular Volume 85.8 fl (80-100); Monocytes Absolute Auto 0.3 K/mm3 (0.1-0.6); Monocytes Percent Auto 7.4 % (2.6-8.5); Neutrophils Absolute Auto 3.2 K/mm3 (1.3-6.7); Neutrophils Percent Auto 70.3 % (45.5-73.1); Platelet Count Result 204 k/mm3 (150-375); Red Blood Count 4.52 M/mm3 (4.2-5.4); Red Cell Distribution Width 13.4 % (11.5-14.5); White Blood Count 4.6 K/mm3 (4.5-10.0)
[2020-08-03 13:39] LABS: INR 0.9; Prothrombin Time 12.6 Seconds (11.1-14.7)
[2020-08-03 13:40] LABS: Partial Thromboplastin Time 27.2 SECONDS (22.3-36.8)
[2020-08-03 13:41] LABS: Alanine Aminotransferase 21 U/L (4-35); Albumin Level 3.8 g/dL (3.5-5.1); Alkaline Phosphatase 125 U/L (38-126); Anion Gap 7 mmol/L (8-16); Aspartate Amino Transferase 21 U/L (14-36); Bilirubin,Total 0.8 mg/dL (0.2-1.3); Blood Urea Nitrogen 26 mg/dL (7-17); Calcium 8.5 mg/dL (8.4-10.2); Carbon Dioxide 27 mmol/L (22-30); Chloride 104 mmol/L (98-107); Estimated CRCL calculation 48 ml/min; Estimated Glomerular Filt Rate 51; Glucose 189 mg/dL (65-105); Potassium 4.8 mmol/L (3.4-5.0); Sodium 138 mmol/L (137-145)
[2020-08-03 13:52] LABS: Troponin I < 0.012 ng/mL (0.000-0.034)
--- NOTE | 2020-08-03 15:56 | ECG_ITS ---
Measurements Intervals [place] Rate: 72 P: 28 TX: 243 QRS: -40 QRSD: 145 T: 128 QT: 439 QTc: 481 Interpretive Statements ELECTRONIC ATRIAL PACEMAKER ELECTRONIC VENTRICULAR PACEMAKER BASELINE ARTIFACT- I, III, AVL, AVF NO FURTHER INTERPRETATION IS POSSIBLE ATYPICAL ECG Electronically Signed On 08-03-2020 16:22:54 PASTRY COOK APPRENTICE by Armando Goff D.O.
--- NOTE | 2020-08-03 16:40 | ADMGEN ---
This patient, Marlys Rai, was admitted IMU OBS OVERFLOW to [facility] ER. Patient/family oriented to hospital policies and general routines including ID bracelet, bed and alarms, visiting hours, pain management, procedures, bathroom and other care routines, personal items, smoking policy, room service/diet, and visiting hours. Information on how to activate the Rapid Response Team has been discussed. Patient/Family are encouraged to report perceived risks to care and to ask questions if they do not understand what they are told or what they should do.
[2020-08-03 17:12] LABS: Troponin I < 0.012 ng/mL (0.000-0.034)
--- NOTE | 2020-08-03 18:25 | PC.NURSE ---
PAGE PLACED TO NOTIFY HOSPITALIST OF ADMISSION ARRIVAL AT 1640 AND MEDICATIONS HX ENTERED AND ADMIT DATA BEING ENTERED BY RN.
[2020-08-03 19:45] LABS: Troponin I < 0.012 ng/mL (0.000-0.034)
--- NOTE | 2020-08-03 23:46 | PM.IMHP ---
H&P: HPI History of Present Illness Date/Time: 08/03/20 23:46 Chief complaint: CHEST PAIN Narrative: Marlys Rai is a 54 year old female who has a history of coronary artery disease and congestive heart failure. The patient was complaining of chest pain today. She does have acid reflux. She said it felt like she had heartburn and she was belching had a lot of gas today. The patient stated that she was not able to take any antacids. She stated that she was told it would not go well with her medication. However she is on pantoprazole. The patient stated that she had eaten some bad chicken a few days ago and had diarrhea from it. The patient states that she has been having difficulty swallowing at times felt like something was in her throat this morning. The patient's troponins have been negative. The patient sees Dr. Burciaga. She said she has abdominal bloating. Patient is complaining of headache. Peripheral neuropathy to her hands and feet. The patient stated that she felt like she had numbness and tingling all over her body including her hands and feet. She is diabetic and her last A1c was is 10.6. She states that her blood sugars are not typically controlled. The patient also stated that she has poor dentition and that she is scheduled to have her teeth pulled in the near future. However she is requesting the mouthwash that she received the last time she was here. She has been here with facial cellulitis in the past. The patient was admitted into observation status. Date of service is 08/03/2020. Review of Systems Review of Systems: All systems reviewed & are unremarkable except as noted in HPI and below Constitutional: Constitutional: Reports as per HPI and Reports no additional constitutional complaints Eyes: Eyes: Reports as per HPI and Reports no additional eye complaints ENT: Reports system reviewed and no additional complaints, except as documented and Reports Normal hearing present Cardiovascular: Cardiovascular: Reports no additional cardiovascular complaints Respiratory: Respiratory: Reports no additional respiratory complaints and Reports no additional respiratory complaints Gastrointestinal: Gastrointestinal: Reports as per HPI and Reports no additional gastrointestinal complaints Musculoskeletal: Musculoskeletal: Reports no additional musculoskeletal complaints Integumentary/Breasts: Skin/Breast: Reports system reviewed and no additional complaints, except as docu and Reports as per HPI Neurologic: Reports system reviewed and no additional complaints, except as documented, Reports as per HPI and Reports Normal hearing present Psychiatric: Psychiatric: Reports no additional psychiatric complaints and Reports as per HPI Endocrine: Endocrine: Reports no additional endocrine complaints Hematologic/Lymphatic: Hematologic/Lymphatic: Reports no additional hematologic/lymphatic complaints Allergic/Immunologic: Allergic/Immunologic: Reports no additional allergic/immunologic complaints [facility] Past Medical History Medical History (Updated 08/04/20 @ 00:11 by Eva Contreras NP) Anemia With history of blood transfusion. AV block Status post atrial pacemaker insertion. CHF (congestive heart failure) Coronary artery disease (~11/2017) Cardiac catheterization per Dr. Montalvo demonstrated distal 1st diagonal vessel total occlusion status post angioplasty and stent placement. Depression with anxiety Diabetic peripheral neuropathy Eczema Gastroesophageal reflux disease Hyperlipidemia Hypertension Insulin dependent type 2 diabetes mellitus Hemoglobin A1c was 9.8% in July 2019. Myocardial infarction x2 Osteoarthritis Peripheral neuropathy Previous known suicide attempt Restless leg syndrome Seasonal allergies Septal defect Patient on certain whether this was an ASD or VSD repair, done at the age of 39. Valvular heart disease Status post mitral valve repair. ADARSH September 18, 2019 showed moderate t
[2020-08-03] MEDS: ACETAMINOPHEN 325 MG TABLET 650 MG PO (23:51)
[2020-08-04] VITALS (8 sets, daily range): BP systolic 105–111; BP diastolic 71–81; PULSE 70–76; RESP 17–20; TEMP 36.2–36.6; O2SAT 96–100
[2020-08-04] MEDS: METOPROLOL TARTRATE 25 MG TABLET PO ×2 (01:03→08:44)
[2020-08-04] MEDS: INSULIN GLARGINE (*BKC) 100 UNITS/ML 25 UNITS SUB-Q (01:06)
[2020-08-04 01:15] LABS: Glucose Point of Care 238 (65-105)
[2020-08-04 06:36] LABS: Basophils Percent Auto 0.8 % (0.2-1.2); Eosinophils Absolute Auto 0.1 K/mm3 (0-0.3); Eosinophils Percent Auto 2.9 % (0-4.4); Hematocrit 37.3 % (37.0-47.0); Hemoglobin 11.7 g/dL (12.0-15.0); Immature Granulocyte Absolute 0.02 K/mm3 (0.00-0.031); Immature Granulocyte Percent A 0.5 % (0-0.5); Lymphocytes Absolute Auto 1.03 K/mm3 (0.9-3.2); Lymphocytes Percent Auto 27.5 % (18.3-44.2); Mean Corpuscular HGB Conc 31.4 g/dl (32-36); Mean Corpuscular Volume 85.9 fl (80-100); Mean Platelet Volume 10.4 fl (7.4-10.4); Monocytes Absolute Auto 0.4 K/mm3 (0.1-0.6); Monocytes Percent Auto 9.6 % (2.6-8.5); Neutrophils Absolute Auto 2.2 K/mm3 (1.3-6.7); Neutrophils Percent Auto 58.7 % (45.5-73.1); Platelet Count Result 191 k/mm3 (150-375); Red Blood Count 4.34 M/mm3 (4.2-5.4); Red Cell Distribution Width 13.6 % (11.5-14.5); White Blood Count 3.8 K/mm3 (4.5-10.0)
[2020-08-04 06:54] LABS: Alanine Aminotransferase 18 U/L (4-35); Albumin Level 3.3 g/dL (3.5-5.1); Alkaline Phosphatase 91 U/L (38-126); Anion Gap 3 mmol/L (8-16); Aspartate Amino Transferase 21 U/L (14-36); Bilirubin,Total 0.7 mg/dL (0.2-1.3); Blood Urea Nitrogen 22 mg/dL (7-17); Calcium 8.4 mg/dL (8.4-10.2); Carbon Dioxide 28 mmol/L (22-30); Chloride 106 mmol/L (98-107); Estimated CRCL calculation 40 ml/min; Estimated Glomerular Filt Rate 57; Glucose 166 mg/dL (65-105); Lactic Acid Reflex 0.9 mmol/L (0.7-2.1); Lipase 38 U/L (23-300); Magnesium 1.6 mg/dL (1.6-2.3); Potassium 4.8 mmol/L (3.4-5.0); Sodium 137 mmol/L (137-145)
--- NOTE | 2020-08-04 07:50 | PC.NURSE ---
DR. WHITT HERE TO SEE PT. CONDITION UPDATE GIVEN. NO NEW ORDERS RECEIVED. AWAIT CONSULTATION FROM DR. JOHN.
[2020-08-04 08:22] LABS: Glucose Point of Care 159 (65-105)
[2020-08-04] MEDS: CLOPIDOGREL BISULFATE 75 MG TABLET PO (08:43)
[2020-08-04] MEDS: GLIMEPIRIDE 2 MG TABLET 4 MG PO (08:43)
[2020-08-04] MEDS: CITALOPRAM HYDROBROMIDE 20 MG TABLET PO (08:43)
[2020-08-04] MEDS: ASPIRIN 81 MG ENTERIC TABLET PO (08:43)
[2020-08-04] MEDS: lisinopriL 2.5 MG TABLET PO (08:43)
[2020-08-04] MEDS: ROSUVASTATIN 10 MG TABLET 20 MG PO (08:44)
[2020-08-04] MEDS: PANTOPRAZOLE 40 MG TABLET PO (08:44)
[2020-08-04] MEDS: LORATADINE 10 MG TABLET PO (08:44)
[2020-08-04] MEDS: MAGNESIUM OXIDE 400 MG TABLET PO (08:44)
[2020-08-04] MEDS: rOPINIRole HCL 1 MG TABLET 2 MG PO (08:44)
--- NOTE | 2020-08-04 10:00 | PC.NURSE ---
DR. JOHN HERE TO SEE PT. CONDITION UPDATE GIVEN. OK TO DISCHARGE HOME FROM HIS PERSPECTIVE AND FOLLOW UP WITH HIM IN 1-[address] OFFICE[address] DR. WHITT NOTIFIED OF SUCH AND NOTIFIED OF ELEVATED TSH LEVEL.
--- NOTE | 2020-08-04 10:29 | PM.CNCAR ---
Assessment and Plan Assessment and plan (1) Chest pain at rest: Code(s): R07.9 - Chest pain, unspecified Status: Acute (2) Numbness: Code(s): R20.0 - Anesthesia of skin Status: Acute (3) Hypertension: Qualifiers: Hypertension type: essential hypertension Qualified Code(s): I10 - Essential (primary) hypertension Code(s): I10 - Essential (primary) hypertension Status: Acute (4) Chest pain: Qualifiers: Chest pain type: unspecified Qualified Code(s): R07.9 - Chest pain, unspecified Code(s): R07.9 - Chest pain, unspecified Status: Acute Assessment and Plan: Atypical chest pain likely is due to GERD, no need for any further intervention (5) CAD (coronary artery disease): Qualifiers: Coronary Disease-Associated Artery/Lesion type: [place] artery [place] vs. transplanted heart: [place] heart Associated angina: without angina Qualified Code(s): I25.10 - Atherosclerotic heart disease of [place] coronary artery without angina pectoris Code(s): I25.10 - Atherosclerotic heart disease of [place] coronary artery without angina pectoris Status: Chronic Assessment and Plan: She has chronic total occlusion of distal LAD, so far cardiac enzymes are negative, no need for any further intervention from that point of view continue with aspirin and Plavix Additional Plan Thank you for allowing me to participate in this patient's care, I will be following up with you. Please do not hesitate to call me for any other inquiry. She seems to be stable from cardiac standpoint to be discharged home, please have a follow-up with me in 1-2 weeks History of Present Illness History of Present Illness Consult date/time: 08/04/20 10:29 54 years old lady with history of known coronary disease previous LAD stent, and history of sick sinus syndrome previous pacemaker, came to hospital because of heaviness in the chest with feeling of fullness in the epigastric area with radiation to the upper part of the chest, and occasional heartburn. After that start having numbness of both arm which resolve. So far cardiac enzymes are negative and her EKG is unremarkable. She had history of pacemaker placement last pacer check was unremarkable, she had history of stent placement to the LAD distally but after that she had chronic occlusion of the stent and she had history of chronic total occlusion for more than a year, from that she gets occasional chest pain, last catheterization cardiac catheterization was done showed distal LAD chronic total occlusion, which was not amenable for any intervention. Currently she feels okay chest pain is resolved, no palpitation no dizziness no lightheadedness. She still gets occasional heartburn Reason For Visit: CHEST PAIN Review of Systems Constitutional: Constitutional: Reports as per HPI Cardiovascular: Cardiovascular: Reports as per HPI Gastrointestinal: Gastrointestinal: Reports as per HPI and Reports bloating PMFSH Past Medical History Medical History (Updated 08/04/20 @ 00:11 by Eva Contreras NP) Anemia With history of blood transfusion. AV block Status post atrial pacemaker insertion. CHF (congestive heart failure) Coronary artery disease (~11/2017) Cardiac catheterization per Dr. Montalvo demonstrated distal 1st diagonal vessel total occlusion status post angioplasty and stent placement. Depression with anxiety Diabetic peripheral neuropathy Eczema Gastroesophageal reflux disease Hyperlipidemia Hypertension Insulin dependent type 2 diabetes mellitus Hemoglobin A1c was 9.8% in July 2019. Myocardial infarction x2 Osteoarthritis Peripheral neuropathy Previous known suicide attempt Restless leg syndrome Seasonal allergies Septal defect Patient on certain whether this was an ASD or VSD repair, done at the age of 39. Valvular heart disease Status post mitral valve repair. ADARSH September 18, 2019 showed m
--- NOTE | 2020-08-04 11:55 | PC.NURSE ---
PRIOR TO DISCHARGE, DR. WHITT WANTS BEDSIDE SPEECH EVAL TO SEE PT.
[2020-08-04 12:03] LABS: Free T4 Free Thyroxine Reflex 0.92 ng/dL (0.78-2.19)
--- NOTE | 2020-08-04 12:05 | PC.NURSE ---
SPEECH TX HERE TO SEE PT FOR BEDSIDE SPEECH EVAL.
--- NOTE | 2020-08-04 12:45 | PC.NURSE ---
SWALLOWING EVAL AT BEDSIDE COMPLETED. PT. TO CONTINUE EATING AND DRINKING REGULAR CONSISTENCY BEFORE. OK TO PROCEDE W/ DISCHARGE.
[2020-08-04 12:46] LABS: Total Triiodothyronine (T3) 1.17 NG/ML (0.97-1.69)
--- NOTE | 2020-08-04 13:15 | PC.NURSE ---
REVIEWED ALL DISCHARGE INSTRUCTIONS AND FOLLOW UP CARE W/ PT. ALL QUESTIONS ANSWERED AND VOICED UNDERSTANDING OF ALL. DISCHARGED HOME, OUT VIA WC TO SISTER'S WAITING CAR WITH ALL PERSONAL BELONGINGS AND DISCHARGE PACKET. FLU WAS VACCINE GIVEN ORDERED. VOICES NO C/O; NO DISTRESS NOTED.
--- NOTE | 2020-08-04 13:46 | PCSTNOTE ---
Please refer to the Bedside Swallow Evaluation in the EMR. Please note, silent aspiration cannot be ruled out at bedside.
--- NOTE | 2020-08-05 10:12 | DS_ITS ---
DATE OF DISCHARGE: 08/04/2020 ADMITTING DIAGNOSIS: Chest pain. FINAL DIAGNOSES: 1. Chest pain. 2. Hypothyroidism. 3. Hypertension. 4. Hyperlipidemia. 5. Depression. HOSPITAL COURSE: The patient is a 54-year-old female with a history of coronary artery disease, congestive heart failure, who was admitted with complaints of having chest pain. The patient's physical examination was normal. The patient's important lab data shows that the patient has blood pressure of 136/76, pulse rate 95, respirations 18, temperature 98.6. The patient's pulse ox was normal. The patient was given rule-out DE protocol. The patient's 3 sets of cardiac enzymes were negative. Cardiology was consulted who decided that the patient can be discharged. The patient was discharged home in stable condition. DISCHARGE INSTRUCTIONS: Heart healthy diet. Activity as tolerated. FOLLOWUP: Follow up with primary care physician in about 1 week. Follow up with Cardiology in about 1 week. CONDITION AT THE TIME OF DISCHARGE: Stable. DISCHARGE MEDICATIONS: The patient was advised to take aspirin 81 mg p.o. daily, citalopram 20 mg p.o. daily, Plavix 75 mg p.o. daily, nitroglycerin 0.4 sublingual as needed, pantoprazole 40 mg p.o. b.i.d., 5 units subcutaneously every night, glimepiride 4 mg p.o. b.i.d., metoprolol 25 mg p.o. b.i.d., and lisinopril 2.5 mg p.o. daily. The patient has right to call Cardiology home. D I MT: Jake
== END 2020-08-04 13:15 | disposition home or self-care (01) ==
LOC: ANHED 15:12 → ANHCPC 16:12
PROVIDERS: Nurse Practitioner; Admitting Provider Internal Medicine; Emergency Provider Emergency Medicine; PCP Nurse Practitioner Family; Visit Provider Internal Medicine
DX: R07.9 Chest pain, unspecified (principal); E03.9 Hypothyroidism, unspecified; I11.0 Hypertensive heart disease with heart failure; E78.5 Hyperlipidemia, unspecified; F41.8 Other specified anxiety disorders; I50.9 Heart failure, unspecified; R20.0 Anesthesia of skin; E11.42 Type 2 diabetes mellitus with diabetic polyneuropathy; D64.9 Anemia, unspecified; I25.10 Atherosclerotic heart disease of native coronary artery without angina pectoris; I25.2 Old myocardial infarction; I05.9 Rheumatic mitral valve disease, unspecified; E55.9 Vitamin D deficiency, unspecified; R94.31 Abnormal electrocardiogram [ECG] [EKG]; R14.0 Abdominal distension (gaseous); R51.9 Headache, unspecified; K21.9 Gastro-esophageal reflux disease without esophagitis; Z79.82 Long term (current) use of aspirin; Z79.4 Long term (current) use of insulin; Z95.0 Presence of cardiac pacemaker; Z95.5 Presence of coronary angioplasty implant and graft; Z23 Encounter for immunization; Z79.02 Long term (current) use of antithrombotics/antiplatelets
CPT/HCPCS: 36415; 71046; 80053; 83605; 83690; 83735; 84439; 84443; 84480; 84484; 85025; 85610; 85730; 90471; 90653; 92610; 93005; 96360; 99285; A4248; A9270; G0008; G0378; G0379; J1815; J7030

== ENCOUNTER 2020-08-28 18:23 | Emergency (ER) | payer OTHER, SELFPAY ==
[2020-08-28 18:26] VITALS: BP 125/65; PULSE 95; RESP 18; TEMP 36.8; O2SAT 95
--- NOTE | 2020-08-28 19:02 | PC.NURSE ---
PT REFUSING CHEST XRAY
--- NOTE | 2020-08-28 19:06 | PC.NURSE ---
REPORT TO JOHN COONEY, HE HAS ASSUMED PT CARE.
--- NOTE | 2020-08-28 19:15 | ED.GENADULT ---
HPI - General Adult General Chief complaint: Unspecified Stated complaint: covid+ wanting to be assessed Time Seen by Provider: 08/28/20 18:28 Source: patient Mode of arrival: EMS Limitations: no limitations History of Present Illness HPI narrative: Patient states that she began having a cough congestion runny nose that began Wednesday or Wednesday so she was tested for Covid on Wednesday and was called today by her primary care and told that she tested positive for Covid. She states that she will throat to be assessed because she tested positive. Patient states other than cough and the aforementioned symptoms she does not have any hypoxia, chest pain, fever, vomiting or any other emergent symptoms. Related Data Home Medications Medication Instructions Recorded Confirmed aspirin [Adult Low Dose Aspirin] 81 mg PO DAILY 07/05/19 08/03/20 citalopram 20 mg PO DAILY 07/05/19 08/03/20 clopidogrel [Plavix] 75 mg PO DAILY 07/05/19 08/03/20 nitroglycerin [Nitrostat] 0.4 mg SUBLINGUAL Q5-15M PRN 07/05/19 08/03/20 pantoprazole 40 mg PO BID 07/05/19 08/03/20 Basaglar KwikPen U-100 Insulin 25 unit SUBCUT HS 08/20/19 08/03/20 glimepiride 4 mg PO BID 08/20/19 08/03/20 ropinirole 2 mg PO TID 08/20/19 08/03/20 magnesium oxide 400 mg PO DAILY 10/12/19 08/03/20 metoprolol tartrate 25 mg PO BID 10/12/19 08/03/20 lisinopril 2.5 mg PO DAILY 01/13/20 08/03/20 Allergy Relief (cetirizine) 10 mg BYMOUTH DAILY 02/27/20 08/03/20 nystatin [Nystop] See Rx Instructions .ROUTE .COMPLEX 08/03/20 08/03/20 rosuvastatin 20 mg PO DAILY 08/03/20 08/03/20 Allergies Allergy/AdvReac Type Severity Reaction Status Date / Time azithromycin Allergy Severe Gastrointestinal Verified 08/03/20 18:10 Upset Review of Systems Review of Systems: Narrative: CONSTITUTIONAL: Denies fever, chills, or sweats. EYES: Denies visual changes, redness, or discharge. ENT:Reports rhinorrhea, congestion, Denies sore throat or otalgia. CARDIOVASCULAR: Denies chest pain, palpitations, or edema. RESPIRATORY: Reports cough Denies dyspnea. GASTROINTESTINAL: Denies abdominal pain, nausea, vomiting, or diarrhea. GENITOURINARY: Denies dysuria or hematuria. SKIN: Denies rash or itching. MUSCULOSKELETAL: Denies back pain, myalgia, or joint pain NEUROLOGIC: Denies headache, numbness, dizziness, or weakness. PSYCHIATRIC: Denies anxiety or depression. [facility] Past Medical History Medical History (Updated 08/04/20 @ 00:11 by Eva Contreras NP) Anemia With history of blood transfusion. AV block Status post atrial pacemaker insertion. CHF (congestive heart failure) Coronary artery disease (~11/2017) Cardiac catheterization per Dr. Montalvo demonstrated distal 1st diagonal vessel total occlusion status post angioplasty and stent placement. Depression with anxiety Diabetic peripheral neuropathy Eczema Gastroesophageal reflux disease Hyperlipidemia Hypertension Insulin dependent type 2 diabetes mellitus Hemoglobin A1c was 9.8% in July 2019. Myocardial infarction x2 Osteoarthritis Peripheral neuropathy Previous known suicide attempt Restless leg syndrome Seasonal allergies Septal defect Patient on certain whether this was an ASD or VSD repair, done at the age of 39. Valvular heart disease Status post mitral valve repair. ADARSH September 18, 2019 showed moderate to severe mitral valve calcification with decreased movement and evidence of moderate mitral valve regurgitation. Vitamin D deficiency Surgical History Surgical History History of History of cardiac catheterization (~11/2017) Status post angioplasty and stent placement to distal 1st diagonal per Dr. Montalvo. History of permanent cardiac pacemaker placement x2 History of sternectomy Repaired hole in heart, patient unsure whether it was in atrial or ventricular septal defect. Family History Family History
[2020-08-28 20:10] VITALS: BP 119/63; PULSE 89; RESP 18; O2SAT 97
== END 2020-08-28 20:14 | disposition home or self-care (01) ==
LOC: ANHED 18:38
PROVIDERS: Emergency Provider Emergency Medicine; PCP Nurse Practitioner Family
DX: U07.1 COVID-19 (principal); I25.10 Atherosclerotic heart disease of native coronary artery without angina pectoris; I50.9 Heart failure, unspecified; I11.0 Hypertensive heart disease with heart failure; E11.42 Type 2 diabetes mellitus with diabetic polyneuropathy; Z79.82 Long term (current) use of aspirin; Z79.02 Long term (current) use of antithrombotics/antiplatelets; Z79.4 Long term (current) use of insulin; E78.5 Hyperlipidemia, unspecified; I25.2 Old myocardial infarction; M19.90 Unspecified osteoarthritis, unspecified site; G25.81 Restless legs syndrome; I38 Endocarditis, valve unspecified; E55.9 Vitamin D deficiency, unspecified; Z86.2 Personal history of diseases of the blood and blood-forming organs and certain disorders involving the immune mechanism; F41.8 Other specified anxiety disorders; Z95.0 Presence of cardiac pacemaker
CPT/HCPCS: 99281

== ENCOUNTER 2021-05-09 05:17 | Inpatient (IN) | payer OTHER, SELFPAY ==
[2021-05-09] VITALS (15 sets, daily range): BP systolic 103–169; BP diastolic 53–87; PULSE 72–96; RESP 16–24; TEMP 36–36.9; O2SAT 93–98; BMI 36.2
--- NOTE | ~2021-05-09 | XR_ITS ---
EXAMINATION: XR chest 1V portable DATE: 05/09/2021 05:56 INDICATION: Chest pain. TECHNIQUE: A single frontal view of the chest was obtained. COMPARISON: Chest 2 views 08/03/2020, CT abdomen and pelvis 08/20/2019 FINDINGS: The patient is rotated to her left. There is mild atelectasis in the lower lung zones. No p leural effusion or pneumothorax. Cardiomegaly is noted. There are prominent paracardial fat pads. Med aroldo sternotomy wires are noted. Epicardial pacer wires are noted. IMPRESSION: 1. Mild atelectasis in the lower lung zones. 2. Cardiomegaly. Reviewed, dictated and finalized at location A.
--- NOTE | ~2021-05-09 | XR_ITS ---
XR chest 1V portable 05/10/2021 14:24 Indication: Shortness of breath Procedure: AP portable chest Comparison: Comparison to multiple prior studies sequentially, with oldest reviewed study dated 03/25. Findings: Status post median sternotomy for CABG. Cardiomegaly. Right lung clear. Left basilar airspa ce consolidation. Possible small left effusion. No pneumothorax. No significant edema. Impression: 1: Left basilar airspace disease which may represent atelectasis or pneumonia. Reviewed, dictated and finalized at location A. Impression: 1: Left basilar airspace disease which may represent atelectasis or pneumonia.
--- NOTE | 2021-05-09 05:30 | ECG_ITS ---
Measurements Intervals [place] Rate: 92 P: AR: 0 QRS: -52 QRSD: 184 T: 107 QT: 430 QTc: 532 Interpretive Statements ELECTRONIC VENTRICULAR PACEMAKER ATRIAL PREMATURE COMPLEXES AND FUSION COMPLEX BASELINE ARTIFACT- I, III, AVR, AVL, AVF NO FURTHER INTERPRETATION IS POSSIBLE BORDERLINE ECG Electronically Signed On 05-09-2021 6:17:00 CDT by Armando Goff D.O.
[2021-05-09] MEDS: MORPHINE SULFATE (*CRX) 4 MG/ML INJ IV PUSH (05:34)
--- NOTE | 2021-05-09 05:42 | ED.CHESTPAIN ---
HPI - Chest Pain General Chief Complaint: Chest Pain Stated Complaint: cp Time Seen by Provider: 05/09/21 05:21 Source: patient, family, EMS, RN notes reviewed and old records reviewed History of Present Illness HPI narrative: Patient presents with chest pain. Patient reports her pain woke her up from sleep with a sharp pressure in the middle of her chest and radiates down her right arm. She denies any shortness of breath diaphoresis nausea vomiting or lightheadedness. Reports prior history of CA and her symptoms feel similar to prior CA. Reports she took 4 baby aspirin at home EMS gave nitro in route patient reports her symptoms have persisted. Patient is unable to identify any clear aggravating or alleviating factors such as physical activity or pleurisy. Related Data Home Medications Medication Instructions Recorded Confirmed aspirin [Adult Low Dose Aspirin] 81 mg PO DAILY 07/05/19 08/03/20 citalopram 20 mg PO DAILY 07/05/19 08/03/20 clopidogrel [Plavix] 75 mg PO DAILY 07/05/19 08/03/20 nitroglycerin [Nitrostat] 0.4 mg SUBLINGUAL Q5-15M PRN 07/05/19 08/03/20 pantoprazole 40 mg PO BID 07/05/19 08/03/20 Basaglar KwikPen U-100 Insulin 25 unit SUBCUT HS 08/20/19 08/03/20 glimepiride 4 mg PO BID 08/20/19 08/03/20 ropinirole 2 mg PO TID 08/20/19 08/03/20 magnesium oxide 400 mg PO DAILY 10/12/19 08/03/20 metoprolol tartrate 25 mg PO BID 10/12/19 08/03/20 lisinopril 2.5 mg PO DAILY 01/13/20 08/03/20 Allergy Relief (cetirizine) 10 mg BYMOUTH DAILY 02/27/20 08/03/20 nystatin [Nystop] See Rx Instructions .ROUTE .COMPLEX 08/03/20 08/03/20 rosuvastatin 20 mg PO DAILY 08/03/20 08/03/20 pen needle, diabetic [TRUEplus Pen 05/09/21 05/09/21 Needle] Allergies Allergy/AdvReac Type Severity Reaction Status Date / Time azithromycin Allergy Severe Gastrointestinal Verified 05/09/21 07:13 Upset Review of Systems Review of Systems: CONSTITUTIONAL: Denies fever, chills, or sweats. EYES: Denies visual changes, redness, or discharge. ENT: Denies rhinorrhea, congestion, sore throat, or otalgia. CARDIOVASCULAR: Denies palpitations, or edema. RESPIRATORY: Denies cough or dyspnea. GASTROINTESTINAL: Denies abdominal pain, nausea, vomiting, or diarrhea. GENITOURINARY: Denies dysuria or hematuria. SKIN: Denies rash or itching. MUSCULOSKELETAL: Denies back pain, joint pain, or myalgia. NEUROLOGIC: Denies headache, numbness, dizziness, or weakness. PSYCHIATRIC: Denies anxiety or depression. All systems reviewed & are unremarkable except as noted in HPI and below PMFSH Past Medical History Medical History Anemia With history of blood transfusion. AV block Status post atrial pacemaker insertion. CHF (congestive heart failure) Coronary artery disease (~11/2017) Cardiac catheterization per Dr. Montalvo demonstrated distal 1st diagonal vessel total occlusion status post angioplasty and stent placement. Depression with anxiety Diabetic peripheral neuropathy Eczema Gastroesophageal reflux disease Hyperlipidemia Hypertension Insulin dependent type 2 diabetes mellitus Hemoglobin A1c was 9.8% in July 2019. Myocardial infarction x2 Osteoarthritis Peripheral neuropathy Previous known suicide attempt Restless leg syndrome Seasonal allergies Septal defect Patient on certain whether this was an ASD or VSD repair, done at the age of 39. Valvular heart disease Status post mitral valve repair. ADARSH September 18, 2019 showed moderate to severe mitral valve calcification with decreased movement and evidence of moderate mitral valve regurgitation. Vitamin D deficiency Surgical History Surgical History History of History of cardiac catheterization (~11/2017) Status post angioplasty and stent placement to distal 1st diagonal per Dr. Montalvo. History of permanent cardiac pacemaker placement x2 History of sternectomy Repaired
[2021-05-09] MEDS: ONDANSETRON INJ 4 MG/2 ML VIAL IV PUSH ×2 (05:44→18:40)
[2021-05-09 05:51] LABS: Basophils Percent Auto 0.7 % (0.2-1.2); Eosinophils Absolute Auto 0.1 K/mm3 (0-0.3); Hematocrit 40.1 % (37.0-47.0); Hemoglobin 12.4 g/dL (12.0-15.0); Immature Granulocyte Absolute 0.01 K/mm3 (0.00-0.031); Immature Granulocyte Percent A 0.2 % (0-0.5); Lymphocytes Absolute Auto 1.18 K/mm3 (0.9-3.2); Lymphocytes Percent Auto 25.7 % (18.3-44.2); Mean Corpuscular HGB Conc 30.9 g/dl (32-36); Mean Corpuscular Hemoglobin 25.6 pg (26-34); Mean Corpuscular Volume 82.9 fl (80-100); Mean Platelet Volume 10.5 fl (7.4-10.4); Monocytes Absolute Auto 0.4 K/mm3 (0.1-0.6); Monocytes Percent Auto 9.6 % (2.6-8.5); Neutrophils Absolute Auto 2.9 K/mm3 (1.3-6.7); Neutrophils Percent Auto 61.8 % (45.5-73.1); Platelet Count Result 239 k/mm3 (150-375); Red Blood Count 4.84 M/mm3 (4.2-5.4); Red Cell Distribution Width 15.6 % (11.5-14.5); White Blood Count 4.6 K/mm3 (4.5-10.0)
[2021-05-09 06:01] LABS: INR 0.8; Prothrombin Time 11.2 Seconds (11.1-14.7)
[2021-05-09 06:02] LABS: Partial Thromboplastin Time 26.3 SECONDS (22.3-36.8)
[2021-05-09 06:05] LABS: Alanine Aminotransferase 21 U/L (4-35); Albumin Level 3.9 g/dL (3.5-5.1); Alkaline Phosphatase 201 U/L (38-126); Anion Gap 9 mmol/L (8-16); Aspartate Amino Transferase 23 U/L (14-36); Bilirubin,Total 0.3 mg/dL (0.2-1.3); Blood Urea Nitrogen 19 mg/dL (7-17); Calcium 8.2 mg/dL (8.4-10.2); Carbon Dioxide 23 mmol/L (22-30); Chloride 101 mmol/L (98-107); Estimated CRCL calculation 46 ml/min; Estimated Glomerular Filt Rate 46; Glucose 447 mg/dL (65-110); Potassium 4.1 mmol/L (3.4-5.0); Sodium 133 mmol/L (137-145)
--- NOTE | 2021-05-09 06:09 | PC.NURSE ---
when getting pt up to the bathroom for a urine sample pt became dizzy and almost fainted. pt states she is unable to give a urine sample right now and that she is too weak to get up. pt declining straight cath at this time.
[2021-05-09 06:33] LABS: Troponin I 0.013 ng/mL (0.000-0.034)
[2021-05-09 07:17] LABS: Add Urine Microscopic? YES; Appearance Urine Clear (Clear); Bilirubin Urine Negative (Negative); Blood Urine Negative (Negative); Color Urine Straw (Yellow); Glucose Urine UA 3+ mg/dL (Negative); Ketones Urine Negative (Negative); Leukocyte Esterase Ur Negative LEU/UL (Negative); Nitrate Urine Negative (Negative); Protein Urine 1+ mg/dL (Negative); RBC Urine 0-2 /hpf (0-2); Specific Grav Ur 1.013 (1.001-1.035); Squamous Epithelial Cell Urine Occasional /hpf (Few); Urobilinogen Urine Negative mg/dL (<2.0); WBC Urine 0-3 /hpf
--- NOTE | 2021-05-09 08:54 | PM.IMHP ---
H&P: HPI History of Present Illness Date/Time: 05/09/21 08:54 Chief Complaint: Chest pain Narrative: This is a 55-year-old woman with past medical history of type 2 diabetes mellitus, dyslipidemia, hypertension, peripheral neuropathy, valvular heart disease status post mitral valve repair, GERD, depression/anxiety, chronic anemia, sick sinus syndrome status post pacemaker implantation, congestive heart failure, an extensive history of coronary artery disease with history of NC, status post stenting to LAD, who presents to the emergency department with chest pain. She reports her chest pain started last night and woke her up from sleep. It felt like retrosternal pressure with radiation to her left arm below the way to the fingers. It felt like her prior MRI. She got up walked around. Reported that her pain was stable with the. She continues to the pain currently. Not associated with nausea or vomiting. No diaphoresis. She does have history gastroesophageal reflux disease but reports that is closed and has not changed. She denies any significant abdominal pain. She does have history of diabetic neuropathy with numbness and tingling in her feet that has been stable. In the emergency department blood pressure was 169/78 heart rate 87, temperature 36.9?, pulse ox 97% on room air. Blood work showed hemoglobin 12.4, WBC 4.6, platelets 239, sodium 133, potassium 4.1, chloride 101, bicarb 23, anion gap 9, BUN 19, creatinine 1.2, glucose 447, calcium 8.2, normal liver function tests except elevated alkaline phosphatase, troponin 0.013, albumin 3.9, urinalysis with glucose and protein, no significant rbc's or wbc's. She reports she did not take her medications yesterday that she was out shopping. That includes her aspirin and Plavix. She also did not take her insulin. Review of Systems Review of Systems: All systems reviewed & are unremarkable except as noted in HPI and below [facility] Past Medical History Medical History Anemia With history of blood transfusion. AV block Status post atrial pacemaker insertion. CHF (congestive heart failure) Coronary artery disease (~11/2017) Cardiac catheterization per Dr. Montalvo demonstrated distal 1st diagonal vessel total occlusion status post angioplasty and stent placement. Depression with anxiety Diabetic peripheral neuropathy Eczema Gastroesophageal reflux disease Hyperlipidemia Hypertension Insulin dependent type 2 diabetes mellitus Hemoglobin A1c was 9.8% in July 2019. Myocardial infarction x2 Osteoarthritis Peripheral neuropathy Previous known suicide attempt Restless leg syndrome Seasonal allergies Septal defect Patient on certain whether this was an ASD or VSD repair, done at the age of 39. Valvular heart disease Status post mitral valve repair. ADARSH September 18, 2019 showed moderate to severe mitral valve calcification with decreased movement and evidence of moderate mitral valve regurgitation. Vitamin D deficiency Surgical History Surgical History History of History of cardiac catheterization (~11/2017) Status post angioplasty and stent placement to distal 1st diagonal per Dr. Montalvo. History of permanent cardiac pacemaker placement x2 History of sternectomy Repaired hole in heart, patient unsure whether it was in atrial or ventricular septal defect. Family History Family History Mother Peripheral vascular disease Sibling Diabetes mellitus Social History Social History Social History: The patient currently lives in her own home with her boyfriend. She is on disability. She is a lifelong nonsmoker and denies alcohol and drug abuse. She designates her daughter, Preethi Rai, as her surrogate decision maker and she wish
[2021-05-09] MEDS: ASPIRIN 81 MG CHEWABLE TABLET 324 MG PO (09:17)
[2021-05-09] MEDS: NITROGLYCERIN SL 0.4 MG TABLET SUBLINGUAL (09:18)
[2021-05-09] MEDS: MORPHINE SULFATE (*CRX) 2 MG/ML INJ IV PUSH (09:31)
--- NOTE | 2021-05-09 09:38 | PC.NURSE ---
This patient, Marlys Rai, was admitted to IMU Room 205-01. Patient/family oriented to hospital policies and general routines including ID bracelet, bed and alarms, visiting hours, pain management, procedures, bathroom and other care routines, personal items, smoking policy, room service/diet, and visiting hours. Information on how to activate the Rapid Response Team has been discussed. Patient/Family are encouraged to report perceived risks to care and to ask questions if they do not understand what they are told or what they should do.
--- NOTE | 2021-05-09 12:19 | PM.CNCAR ---
Assessment and Plan Additional Plan 55-year-old woman known to have coronary artery disease with previous MA and PCI to a diagonal branch of the LAD. Angiography done most recently in 2019 did not demonstrate any other disease other than total occlusion of the stented segment of the diagonal. He enters the hospital with an episode of some ischemic sounding chest pain a modest troponin rise interestingly coincident with a day where she did not take any of her medication. At the moment she appears to be stable she is having some mild residual pain but appears to be in no distress. She also has a history of a sternotomy with a cardiothoracic operation 16 years ago as which he describes having a hole in her heart repaired apparently at that time an epicardial pacing system was implanted. That is also being followed in the office of her toe former. At this time I am going to recommend resuming her standard medical regimen. For some reason on her current admission orders none of her cardiac medications are ordered. I am going to go ahead and resume those at this time. We will observe her overnight if she is stable I would plan to let her get discharged in the morning and have ongoing follow-up with her established toe former, Dr. Montalvo. If she has recurrence of ischemic chest pain and requires angiography here at [place] we can proceed with that prior to discharge but at this point she appears to be quite comfortable and has had a small ACS event coincident with not taking any of her medications Js Myers MD [facility] History of Present Illness History of Present Illness Consult date/time: 05/09/21 12:19 Consult reason: chest pain Reason For Visit: chest pain Narrative: This is a 55-year-old woman who is unknown to me but is known to Dr. Montalvo who follows her in his office with a history of coronary disease valvular heart disease and a chronically implanted pacemaker. She is a alert and responsive lady but is not very accurate in terms of her previous medical and cardiac history. Apparently she was in her usual state of which she thinks is reasonable health when this morning very early she is to will was awakened from sleep because of some chest pain. She says she was still half asleep and very groggy but she noticed some precordial sharp pain that radiated into the right arm was moderate to severe in intensity was not associated with any shortness of breath nausea vomiting or diaphoresis. She came to the emergency room because she was concerned she might be having a myocardial infarction as she had 1 in the past. She was evaluated in the emergency room and admitted to the hospitalist service. When I entered the room to see her in the IMU she is sleeping upon awakening she is reporting that she still has some mild residual discomfort but it is much better than when she came into the hospital this morning. Apparently she has a somewhat complicated cardiac history she was evaluated at [facility] in 2004 at states she had surgery for a hole in her heart . She does not know any more than that. Apparently at the time of her surgery she also had a epicardial dual-chamber pacemaker implanted. There are notes in the chart here previously at [place] this states she had a mitral valve repair as well. The patient states she does not think that is the case although she is known to have some mitral valve stenosis. She was followed by physicians primarily down in [place] and has had her pacemaker and ongoing follow-up in the office I mentioned down in [place]. She had a coronary artery event along the way I do not know the exact details of that but she states she had a myocardial infarction. Previous notes indicate she had a PCI with stenting of a mid to distal lesion in a diagonal branch of her LAD. Subsequent angiogram done here in 2019 demonstrates that that segment was totally occluded. She has left coronary dominant circulation and no
[2021-05-09] MEDS: ROSUVASTATIN 10 MG TABLET 20 MG PO (13:16)
[2021-05-09] MEDS: CLOPIDOGREL BISULFATE 75 MG TABLET PO (13:16)
[2021-05-09] MEDS: INSULIN ASPART (*BKC) 100 UNITS/ML SUB-Q (13:16)
[2021-05-09 13:44] LABS: Hemoglobin A1C 11.7 % (<5.7)
[2021-05-09 13:45] LABS: Glucose Point of Care 311 mg/dl (65-105)
--- NOTE | 2021-05-09 15:12 | PC.NURSE ---
This patient, Marlys Rai, was transferred to [facility] on 05/09/21 at 1512. Personal belongings sent with patient. Report given to JOHN Valadez. Appropriate documentation sent with patient.
[2021-05-09] MEDS: lisinopriL 2.5 MG TABLET PO (15:58)
--- NOTE | 2021-05-09 17:09 | PC.NURSE ---
1615 - Pt received to [facility], Pt states that CP is much better , rates 4/10, denies need for anything at this time for CP. Pt sitting in recliner eating lunch without distress. Will continue to monitor.
[2021-05-09] MEDS: GLIMEPIRIDE 2 MG TABLET 4 MG PO (17:18)
[2021-05-09] MEDS: rOPINIRole HCL 1 MG TABLET 2 MG PO ×2 (17:18→20:54)
[2021-05-09 17:19] LABS: Glucose Point of Care 194 mg/dl (65-105)
--- NOTE | 2021-05-09 18:52 | PC.NURSE ---
Pt called nurse to room, pt stated she had vomited, small amount clear fluid noted on the floor by patient. BP 150/97, HR 88, O2 sats at 87%. Pt assisted to bed. Zofran 4mg give per PRN order, 2L O2 placed per NC. Dr Rust notified, no new orders noted, will continue to monitor.
[2021-05-09 21:02] LABS: Glucose Point of Care 247 mg/dl (65-105)
[2021-05-09] MEDS: METOPROLOL TARTRATE 25 MG TABLET PO (21:08)
[2021-05-09] MEDS: INSULIN GLARGINE (*BKC) 100 UNITS/ML 35 UNITS SUB-Q (21:09)
[2021-05-10] VITALS (15 sets, daily range): BP systolic 97–129; BP diastolic 52–88; PULSE 73–88; RESP 16–24; TEMP 35.8–37.7; O2SAT 92–98
--- NOTE | 2021-05-10 | ECHO_ITS ---
Patient Info Name: Marlys Rodriguez Darwin Age: 55 years : 1965 Gender: Female Ht: 60 in Wt: 187 lbs BSA: 1.94 m2 HR: 87 bpm BP: 116 / 61 mmHg Heart Rhythm: Sinus Rhythm Technical Quality: Poor Exam Date: 05/10/2021 2:58 PM Exam Location: [facility] Pulmonary Exam Room: [facility] Patient Status: Inpatient Admit Date: 05/10/2021 Staff Ordering Physician: Sachi Campos Hvac Refrigeration Technician: Cheli Walton RDCS Attending Provider: Edgar Shipman MD Referring Physician: Andres HAZEL; Exam Type: CA echo dop color flow w con Study Info Indications - ERIC HX/O VT PPM CHEST PAIN Complete two-dimensional, color flow and Doppler transthoracic echocardiogram is performed with contrast to opacify the left ventricle and to improve the deliniation of the left ventricle endocardial borders. Contrast/Agitated Saline Contrast/Ag. Saline: Definity Amount: 1.00 ml Existing IV Access: Yes Reason for Poor Study: patient body habitus Summary 1. Technically difficult study with limited views despite definity echo contrast enhancement. Regional wall motion assessment limited due to poor myocardial for definition in several views. 2. Left ventricular systolic function is normal, estimated at 55-60%. 3. There is mildly increased left ventricular wall thickness. 4. Left ventricular septal wall motion is abnormal with septal motion related to bundle branch block. 5. The left ventricular diastolic function is grade II diastolic dysfunction. 6. There is moderate mitral valve stenosis. 7. There is mild mitral valve regurgitation. 8. There is mild tricuspid valve regurgitation. 9. Severe pulmonary hypertension, estimated pulmonary arterial systolic pressure is 61 mmHg. Left Ventricle Left ventricular chamber dimension is normal. Left ventricular systolic function is normal, estimated at 55-60%. There is mildly increased left ventricular wall thickness. Left ventricular septal wall motion is abnormal with septal motion related to bundle branch block. The left ventricular diastolic function is grade II diastolic dysfunction. Technically difficult study with limited views despite definity echo contrast enhancement. Regional wall motion assessment limited due to poor myocardial for definition in several views. Right Ventricle Right ventricular chamber dimension is normal. Right ventricular systolic function is normal. Left Atria Left atrial chamber dimension is not well visualized. Right Atria Right atrial chamber dimension is not well visualized. Aortic Valve The aortic valve is not well visualized. There is no aortic valve stenosis. There is trace aortic valve regurgitation. Pulmonic Valve The pulmonic valve is not well visualized. There is mild pulmonic regurgitation. Mitral Valve The mitral valve has thickened leaflets. There is moderate mitral valve stenosis. There is mild mitral valve regurgitation. The mitral valve annulus is moderately calcified. Tricuspid Valve The tricuspid valve leaflets are normal. There is mild tricuspid valve regurgitation. Severe pulmonary hypertension, estimated pulmonary arterial systolic pressure is 61 mmHg. Pericardium/Pleural The pericardium appears normal. There is trivial pericardial effusion. Aorta The aortic root size at the sinus of Valsalva is normal. Left Ventricular Outflow Tract
[2021-05-10 07:53] LABS: Glucose Point of Care 301 mg/dl (65-105)
[2021-05-10] MEDS: GLIMEPIRIDE 2 MG TABLET 4 MG PO ×2 (08:38→16:42)
[2021-05-10] MEDS: CLOPIDOGREL BISULFATE 75 MG TABLET PO (08:38)
[2021-05-10] MEDS: ASPIRIN 81 MG ENTERIC TABLET PO (08:38)
[2021-05-10] MEDS: lisinopriL 2.5 MG TABLET PO (08:38)
[2021-05-10] MEDS: METOPROLOL TARTRATE 25 MG TABLET PO (08:38)
[2021-05-10] MEDS: CITALOPRAM HYDROBROMIDE 20 MG TABLET PO (08:38)
[2021-05-10] MEDS: LORATADINE 10 MG TABLET PO (08:38)
[2021-05-10] MEDS: MAGNESIUM OXIDE 400 MG TABLET PO (08:39)
[2021-05-10] MEDS: PANTOPRAZOLE 40 MG TABLET PO (08:39)
[2021-05-10] MEDS: ROSUVASTATIN 10 MG TABLET 20 MG PO (08:39)
[2021-05-10] MEDS: rOPINIRole HCL 1 MG TABLET 2 MG PO ×3 (08:39→16:42)
[2021-05-10] MEDS: INSULIN ASPART (*BKC) 100 UNITS/ML SUB-Q ×3 (08:45→16:43)
[2021-05-10 11:43] LABS: Glucose Point of Care 298 mg/dl (65-105)
--- NOTE | 2021-05-10 12:33 | PC.NURSE ---
Reported to dakota in care coordination that patient had stated she would not have a ride home today if she was discharged.
--- NOTE | 2021-05-10 13:53 | PM.IMPN ---
Progress Note: A&P Assessment and Plan (1) Chest pain: Qualifiers: Chest pain type: unspecified Qualified Code(s): R07.9 - Chest pain, unspecified Code(s): R07.9 - Chest pain, unspecified Status: Acute Assessment and Plan: Consistent with her prior [place] chest pain Hx of chronic pain and also has history of GERD Hx of CAD, Cardiology was consulted in the emergency department Initial troponin negative, second moderately elevated at 0.510-->1.43->1.610 S/p aspirin 324 mg Sublingual nitro morphine as needed for pain Appreciate cardiology's recommendations Check ECHO (2) Hypertension: Qualifiers: Hypertension type: unspecified Qualified Code(s): I10 - Essential (primary) hypertension Code(s): I10 - Essential (primary) hypertension Status: Acute Assessment and Plan: Continue home lisinopril and metoprolol (3) Depression with anxiety: Code(s): F41.8 - Other specified anxiety disorders Status: Chronic Assessment and Plan: Continue home citalopram (4) Coronary artery disease: Onset Date: ~11/2017 Qualifiers: Coronary Disease-Associated Artery/Lesion type: [place] artery [place] vs. transplanted heart: [place] heart Associated angina: without angina Qualified Code(s): I25.10 - Atherosclerotic heart disease of [place] coronary artery without angina pectoris Code(s): I25.10 - Atherosclerotic heart disease of [place] coronary artery without angina pectoris Status: Acute Assessment and Plan: Continue home Plavix Continue home aspirin Continue metoprolol (5) Insulin dependent type 2 diabetes mellitus: Code(s): E11.9 - Type 2 diabetes mellitus without complications; Z79.4 - shelter (current) use of insulin Status: Acute Assessment and Plan: Sliding scale insulin Continue home Lantus equivalent, she is on 35 units at home Monitor closely Check hemoglobin A1c (6) GERD (gastroesophageal reflux disease): Qualifiers: Esophagitis presence: esophagitis presence not specified Qualified Code(s): K21.9 - Gastro-esophageal reflux disease without esophagitis Code(s): K21.9 - Gastro-esophageal reflux disease without esophagitis Status: Chronic Assessment and Plan: Continue pantoprazole (7) HLD (hyperlipidemia): Qualifiers: Hyperlipidemia type: unspecified Qualified Code(s): E78.5 - Hyperlipidemia, unspecified Code(s): E78.5 - Hyperlipidemia, unspecified Status: Chronic Assessment and Plan: Continue rosuvastatin (8) DVT prophylaxis: Code(s): Z29.9 - Encounter for prophylactic measures, unspecified Status: Acute Assessment and Plan: SCDs for now, pending further plan Additional Plan Code status: Full code Subjective Date/time seen: 05/10/21 13:53 Interval history: Pt seen and evaluated; nursing staff reports some decreased O2 sats with activity; pt denies any SOB or ERIC; only reports some nausea Review of Systems Review of Systems: All systems reviewed & are unremarkable except as noted in HPI and below Exam Narrative: Gen: Alert, NAD Abd: Soft, NT, ND, BS+ Heart: RRR Lungs: CTAB Ext: No lower extremity edema Skin: No abnormality Eyes: anicteric ENT: MMM Objective Data Vital Signs Vital Signs: Vital Signs - 24 hr 05/09/21 14:00 05/09/21 15:46 05/09/21 16:00 Temperature 36.1 C L Pulse Rate 79 85 82 Respiratory Rate 19 Blood Pressure 125/71 Pulse Oximetry 95 05/09/21 18:00 05/09/21 20:00 05/09/21 21:08 Temperature 36.0 C L Pulse Rate 85 93 91 Respiratory Rate 22 H Blood Pressure 130/66 Pulse Oximetry 98 05/09/21 22:00 05/10/21 00:00 05/10/21 02:00 Temperature 36.4 C L Pulse Rate 92 88 82 Respiratory Rate 20 Blood Pressure 129/88 Pulse Oximetry 98 05/10/21 04:00 05/10/21 06:00 05/10/21 08:00 Temperature 36.2 C L 35.8 C L Pulse Rate 84 81
--- NOTE | 2021-05-10 14:19 | PM.PNCARD ---
Progress Note: A&P Assessment and Plan (1) NSTEMI (non-ST elevated myocardial infarction): Code(s): I21.4 - Non-ST elevation (NSTEMI) myocardial infarction Status: Acute Assessment and Plan: Most likely secondary to noncompliance with medications prior to presentation. Concerning ischemic chest pain or presentation resolved but with troponin elevation concerning for mild acute infarction but asymptomatic at this time. AV paced, EKG unrevealing. Repeat troponin given hypoxia with exertion. 2D echo pending. If this issue persists patient will remain hospitalized for coronary angiography Wednesday morning were unstable on emergent/emergent basis. Patient is otherwise hemodynamically stable quite comfortable and asymptomatic at rest at this time. (2) Hypoxia: Code(s): R09.02 - Hypoxemia Status: Acute Assessment and Plan: Patient with more prominent exertional dyspnea, significant hypoxia despite oxygen supplementation although normal oxygen saturation on room air at rest. She does not appear to be clinically in decompensated heart failure. BNP ordered. Chest x-ray ordered. 2D echocardiogram ordered. Unlikely PE given normal oxygen saturations at rest on room air. DVT prophylaxis. (3) Coronary artery disease: Onset Date: ~11/2017 Qualifiers: Coronary Disease-Associated Artery/Lesion type: [place] artery [place] vs. transplanted heart: [place] heart Associated angina: without angina Qualified Code(s): I25.10 - Atherosclerotic heart disease of [place] coronary artery without angina pectoris Code(s): I25.10 - Atherosclerotic heart disease of [place] coronary artery without angina pectoris Status: Acute Assessment and Plan: Continue statin, aspirin, clopidogrel, metoprolol. History of prior MS, PCI to diagonal branch off the LAD last angiography 2019 total occlusion of stented diagonal no other significant disease history of prior sternotomy reportedly for repair of ?hole in her heart? pacemaker placed followed by Dr. Montalvo as an outpatient. (4) Insulin dependent type 2 diabetes mellitus: Code(s): E11.9 - Type 2 diabetes mellitus without complications; Z79.4 - senior care (current) use of insulin Status: Acute Assessment and Plan: Per primary service. (5) Pacemaker: Code(s): Z95.0 - Presence of cardiac pacemaker Status: Acute Assessment and Plan: AV paced rhythm. Additional Plan 55-year-old woman known to have coronary artery disease with previous MS and PCI to a diagonal branch of the LAD. Angiography done most recently in 2019 did not demonstrate any other disease other than total occlusion of the stented segment of the diagonal. He enters the hospital with an episode of some ischemic sounding chest pain a modest troponin rise interestingly coincident with a day where she did not take any of her medication. At the moment she appears to be stable she is having some mild residual pain but appears to be in no distress. She also has a history of a sternotomy with a cardiothoracic operation 16 years ago as which he describes having a hole in her heart repaired apparently at that time an epicardial pacing system was implanted. That is also being followed in the office of her radiation oncology therapist. At this time I am going to recommend resuming her standard medical regimen. For some reason on her current admission orders none of her cardiac medications are ordered. I am going to go ahead and resume those at this time. We will observe her overnight if she is stable I would plan to let her get discharged in the morning and have ongoing follow-up with her established radiation oncology therapist, Dr. Montalvo. If she has recurrence of ischemic chest pain and requires angiography here at [place] we can proceed with that prior to discharge but at this point she appears to be quite comfortable and has had a small ACS event coincident with not taking any of her medication
[2021-05-10 15:02] LABS: Troponin I 0.663 ng/mL (0.000-0.034)
[2021-05-10 15:24] LABS: NT Pro B Type Natriuretic Pept 424 pg/mL (5-100)
[2021-05-10 16:35] LABS: Glucose Point of Care 305 mg/dl (65-105)
[2021-05-10] MEDS: INSULIN GLARGINE (*BKC) 100 UNITS/ML 35 UNITS SUB-Q (20:14)
[2021-05-10 20:27] LABS: Glucose Point of Care 240 mg/dl (65-105)
[2021-05-11] VITALS (16 sets, daily range): BP systolic 99–124; BP diastolic 57–83; PULSE 73–89; RESP 15–28; TEMP 36.1–36.9; O2SAT 91–100
[2021-05-11 06:25] LABS: Hematocrit 39.3 % (37.0-47.0); Hemoglobin 11.8 g/dL (12.0-15.0); Mean Corpuscular Hemoglobin 25.2 pg (26-34); Mean Platelet Volume 10.8 fl (7.4-10.4); Platelet Count Result 209 k/mm3 (150-375); Red Blood Count 4.68 M/mm3 (4.2-5.4); Red Cell Distribution Width 15.7 % (11.5-14.5); White Blood Count 4.5 K/mm3 (4.5-10.0)
[2021-05-11 07:47] LABS: Glucose Point of Care 253 mg/dl (65-105)
[2021-05-11] MEDS: rOPINIRole HCL 1 MG TABLET 2 MG PO ×3 (08:08→16:40)
[2021-05-11] MEDS: ROSUVASTATIN 10 MG TABLET 20 MG PO (08:09)
[2021-05-11] MEDS: GLIMEPIRIDE 2 MG TABLET 4 MG PO ×2 (08:09→16:40)
[2021-05-11] MEDS: MAGNESIUM OXIDE 400 MG TABLET PO (08:09)
[2021-05-11] MEDS: PANTOPRAZOLE 40 MG TABLET PO (08:09)
[2021-05-11] MEDS: CITALOPRAM HYDROBROMIDE 20 MG TABLET PO (08:09)
[2021-05-11] MEDS: METOPROLOL TARTRATE 25 MG TABLET PO ×2 (08:09→20:03)
[2021-05-11] MEDS: lisinopriL 2.5 MG TABLET PO (08:09)
[2021-05-11] MEDS: LORATADINE 10 MG TABLET PO (08:09)
[2021-05-11] MEDS: ASPIRIN 81 MG ENTERIC TABLET PO (08:09)
[2021-05-11] MEDS: INSULIN ASPART (*BKC) 100 UNITS/ML SUB-Q ×3 (08:11→18:09)
[2021-05-11] MEDS: CLOPIDOGREL BISULFATE 75 MG TABLET PO (08:51)
[2021-05-11 10:35] LABS: Anion Gap 13 mmol/L (8-16); Blood Urea Nitrogen 21 mg/dL (7-17); Calcium 8.6 mg/dL (8.4-10.2); Carbon Dioxide 23 mmol/L (22-30); Chloride 101 mmol/L (98-107); Estimated CRCL calculation 49 ml/min; Estimated Glomerular Filt Rate 51; Glucose 253 mg/dL (65-110); Potassium 4.3 mmol/L (3.4-5.0); Sodium 137 mmol/L (137-145)
[2021-05-11 11:55] LABS: Glucose Point of Care 369 mg/dl (65-105)
[2021-05-11] MEDS: FLUCONAZOLE 150 MG TABLET PO (12:27)
--- NOTE | 2021-05-11 12:42 | PCPTNOTE ---
On 05/11/21, the student, Asael Aden, provided care and completed [facility] documentation on this patient. I have reviewed the student's documentation and agree with the findings.
--- NOTE | 2021-05-11 12:45 | PM.PNCARD ---
Progress Note: A&P Assessment and Plan (1) NSTEMI (non-ST elevated myocardial infarction): Code(s): I21.4 - Non-ST elevation (NSTEMI) myocardial infarction Status: Acute Assessment and Plan: Most likely secondary to noncompliance with medications prior to presentation. Concerning ischemic chest pain or presentation resolved but with troponin elevation concerning for mild acute infarction but asymptomatic at this time. AV paced, EKG unrevealing. Troponin trend consistent NSTEMI troponins downward trending on repeat check. 2D echo technically difficult but 55-60% unable to assess regional wall motion abnormalities Discussed with patient at length. Patient states she is not comfortable going home given her ongoing fatigue and shortness of breath and wishes to proceed with coronary angiography tomorrow morning as she is very concerned about her heart would not be comfortable being discharged without clarification. Will keep patient NPO after midnight in anticipation for coronary angiography in a.m.. Discuss with Dr. Myers in a.m.. (2) Coronary artery disease: Onset Date: ~11/2017 Qualifiers: Associated angina: without angina Coronary Disease-Associated Artery/Lesion type: [place] artery [place] vs. transplanted heart: [place] heart Qualified Code(s): I25.10 - Atherosclerotic heart disease of [place] coronary artery without angina pectoris Code(s): I25.10 - Atherosclerotic heart disease of [place] coronary artery without angina pectoris Status: Acute Assessment and Plan: Continue statin, aspirin, clopidogrel, metoprolol. History of prior [place], PCI to diagonal branch off the LAD last angiography 2019 total occlusion of stented diagonal no other significant disease history of prior sternotomy reportedly for repair of ?hole in her heart? pacemaker placed followed by Dr. Montalvo as an outpatient. (3) Hypoxia: Code(s): R09.02 - Hypoxemia Status: Acute Assessment and Plan: Patient with ongoing excessive fatigue and exertional dyspnea. Oxygen saturations improved overall. Chest x-ray unremarkable, BNP minimally elevated. She is not in decompensated heart failure at this time. Dyspnea may be anginal equivalent although given severe pulmonary hypertension suspect untreated MEEK. (4) Pulmonary hypertension: Code(s): I27.20 - Pulmonary hypertension, unspecified Status: Acute Assessment and Plan: Severe, RVSP 61 mm Hg. Suspect related to untreated MEEK. Patient was supposed to follow up as an outpatient but had not yet done so due to transportation limitations she states. (5) Pacemaker: Code(s): Z95.0 - Presence of cardiac pacemaker Status: Acute Assessment and Plan: AV paced rhythm. (6) Insulin dependent type 2 diabetes mellitus: Code(s): E11.9 - Type 2 diabetes mellitus without complications; Z79.4 - long-term (current) use of insulin Status: Acute Assessment and Plan: Per primary service. Subjective Date/time seen: Date of service: 05/11/21 12:45 Follow-up for chest pain, elevated troponin, shortness of breath Patient continues to feel fatigued, short of breath with activity. Denies chest pain. No dizziness. Telemetry unremarkable. Patient very fatigued showering this morning running out of energy very quickly which she states is unusual for her. Review of Systems Review of Systems: All systems reviewed & are unremarkable except as noted in HPI and below Constitutional: Constitutional: Reports as per HPI, Reports fatigue and Denies lethargy Eyes: Eyes: Reports as per HPI and Reports no additional eye complaints ENT: Reports system reviewed and no additional complaints, except as documented and Reports as per HPI Cardiovascular: Cardiovascular: Reports as per HPI, Denies chest pain, Denies diaphoresis, Denies pedal edema, Denies leg edema, Denies lightheadedness, Denies palpitations and Reports dyspn
[2021-05-11 16:05] LABS: Glucose Point of Care 343 mg/dl (65-105)
--- NOTE | 2021-05-11 17:01 | PM.IMPN ---
Progress Note: A&P Assessment and Plan (1) Chest pain: Qualifiers: Chest pain type: unspecified Qualified Code(s): R07.9 - Chest pain, unspecified Code(s): R07.9 - Chest pain, unspecified Status: Acute Assessment and Plan: Consistent with her prior [place] chest pain Hx of chronic pain and also has history of GERD Hx of CAD, Cardiology was consulted in the emergency department Initial troponin negative, second moderately elevated at 0.510-->1.43->1.610 S/p aspirin 324 mg Sublingual nitro morphine as needed for pain Appreciate cardiology's recommendations CXR-->left basilar airspace disease which may represent atelectasis or pneumonia, pt afebrile, no leukocytosis, denies any cough ECHO-->EF of 50-60%, regional wall motion assessment limited due to poor myocardial for definition in several views; grade II diastolic dysfunction; moderate mitral valve stenosis; mild mitral valve regurgitation; mild tricuspid valve regurgitation; severe pulmonary hypertension, estimated pulmonary arterial systolic pressure is 61 mmHg CC in a.m. (2) Hypertension: Qualifiers: Hypertension type: unspecified Qualified Code(s): I10 - Essential (primary) hypertension Code(s): I10 - Essential (primary) hypertension Status: Acute Assessment and Plan: Continue home lisinopril and metoprolol (3) Depression with anxiety: Code(s): F41.8 - Other specified anxiety disorders Status: Chronic Assessment and Plan: Continue home citalopram (4) Coronary artery disease: Onset Date: ~11/2017 Qualifiers: Coronary Disease-Associated Artery/Lesion type: [place] artery [place] vs. transplanted heart: [place] heart Associated angina: without angina Qualified Code(s): I25.10 - Atherosclerotic heart disease of [place] coronary artery without angina pectoris Code(s): I25.10 - Atherosclerotic heart disease of [place] coronary artery without angina pectoris Status: Acute Assessment and Plan: Continue home Plavix Continue home aspirin Continue metoprolol (5) Insulin dependent type 2 diabetes mellitus: Code(s): E11.9 - Type 2 diabetes mellitus without complications; Z79.4 - half-way (current) use of insulin Status: Acute Assessment and Plan: Sliding scale insulin Continue home Lantus equivalent, she is on 35 units at home Monitor closely Check hemoglobin A1c (6) GERD (gastroesophageal reflux disease): Qualifiers: Esophagitis presence: esophagitis presence not specified Qualified Code(s): K21.9 - Gastro-esophageal reflux disease without esophagitis Code(s): K21.9 - Gastro-esophageal reflux disease without esophagitis Status: Chronic Assessment and Plan: Continue pantoprazole (7) HLD (hyperlipidemia): Qualifiers: Hyperlipidemia type: unspecified Qualified Code(s): E78.5 - Hyperlipidemia, unspecified Code(s): E78.5 - Hyperlipidemia, unspecified Status: Chronic Assessment and Plan: Continue rosuvastatin (8) DVT prophylaxis: Code(s): Z29.9 - Encounter for prophylactic measures, unspecified Status: Acute Assessment and Plan: SCDs for now, pending further plan (9) NSTEMI (non-ST elevated myocardial infarction): Code(s): I21.4 - Non-ST elevation (NSTEMI) myocardial infarction Status: Acute Assessment and Plan: Treatment as above CC in a.m. (10) [place] infection of genital region: Code(s): B37.49 - Other urogenital candidiasis Status: Acute Assessment and Plan: Diflucan 150 mg x3 days Supportive care Additional Plan Code status: Full code Subjective Date/time seen: 05/11/21 17:01 Interval history: Pt seen and evaluated; on 5L O2; pt complains of vaginal itching, states she's getting a yeast infection; no other complaints Review of Systems Review of Systems: All systems reviewed & are unremarkable except a
[2021-05-11 18:08] LABS: Glucose Point of Care 313 mg/dl (65-105)
[2021-05-11] MEDS: INSULIN GLARGINE (*BKC) 100 UNITS/ML 35 UNITS SUB-Q (19:59)
[2021-05-11 20:09] LABS: Glucose Point of Care 274 mg/dl (65-105)
[2021-05-12] VITALS (30 sets, daily range): BP systolic 99–123; BP diastolic 55–83; PULSE 70–86; RESP 14–23; TEMP 36.4–36.7; O2SAT 92–97
[2021-05-12 06:25] LABS: Anion Gap 10 mmol/L (8-16); Blood Urea Nitrogen 21 mg/dL (7-17); Calcium 8.9 mg/dL (8.4-10.2); Carbon Dioxide 26 mmol/L (22-30); Chloride 101 mmol/L (98-107); Estimated CRCL calculation 48 ml/min; Estimated Glomerular Filt Rate 51; Glucose 232 mg/dL (65-110); Potassium 4.3 mmol/L (3.4-5.0); Sodium 137 mmol/L (137-145)
[2021-05-12 06:45] LABS: Hematocrit 39.4 % (37.0-47.0); Hemoglobin 11.9 g/dL (12.0-15.0); Mean Corpuscular HGB Conc 30.2 g/dl (32-36); Mean Corpuscular Hemoglobin 24.9 pg (26-34); Mean Corpuscular Volume 82.6 fl (80-100); Mean Platelet Volume 10.7 fl (7.4-10.4); Platelet Count Result 240 k/mm3 (150-375); Red Blood Count 4.77 M/mm3 (4.2-5.4); Red Cell Distribution Width 15.2 % (11.5-14.5); White Blood Count 5.8 K/mm3 (4.5-10.0)
[2021-05-12 09:31] LABS: Procalcitonin 0.1 ng/mL
[2021-05-12 10:05] LABS: Glucose Point of Care 208 mg/dl (65-105)
[2021-05-12] MEDS: ASPIRIN 81 MG ENTERIC TABLET PO (10:05)
[2021-05-12] MEDS: PANTOPRAZOLE 40 MG TABLET PO (10:07)
[2021-05-12] MEDS: lisinopriL 2.5 MG TABLET PO (10:07)
[2021-05-12] MEDS: LORATADINE 10 MG TABLET PO (10:08)
[2021-05-12] MEDS: METOPROLOL TARTRATE 25 MG TABLET PO ×2 (10:08→21:11)
--- NOTE | 2021-05-12 10:10 | PC.NURSE ---
DR. MALLORY TO BEDSIDE TO SEE PT. WILL PROCEED WITH [facility].
[2021-05-12] MEDS: CLOPIDOGREL BISULFATE 75 MG TABLET PO (10:20)
--- NOTE | 2021-05-12 10:40 | WPDMODSED ---
Moderate Sedation Note-Pt Data Patient Data Diagnosis: Coronary artery disease with previous PCI to the diagonal, vessel is known now to be totally occluded presentation with chest pain event and troponin rise previous congenital heart surgery done in the remote past details not available to me. Epicardial pacing system implanted at that time Present Complaint: no complaints Procedure to be performed/Plan: coronary angiogram Allergies Allergy/AdvReac Type Severity Reaction Status Date / Time azithromycin Allergy Severe Gastrointestinal Verified 05/09/21 10:49 Upset Home Medications Medication Instructions Recorded Confirmed Type aspirin [Adult Low Dose Aspirin] 81 mg PO DAILY 07/05/19 05/09/21 History citalopram 20 mg PO DAILY 07/05/19 05/09/21 History clopidogrel [Plavix] 75 mg PO DAILY 07/05/19 05/09/21 History nitroglycerin [Nitrostat] 0.4 mg SUBLINGUAL Q5-15M PRN 07/05/19 05/09/21 History pantoprazole 40 mg PO DAILY 07/05/19 05/09/21 History Basaglar TobiikBlake U-100 Insulin 35 unit SUBCUT HS 08/20/19 05/09/21 History glimepiride 4 mg PO BID 08/20/19 05/09/21 History ropinirole 2 mg PO TID 08/20/19 05/09/21 History magnesium oxide 400 mg PO DAILY 10/12/19 05/09/21 History metoprolol tartrate 25 mg PO BID 10/12/19 05/09/21 History lisinopril 2.5 mg PO DAILY 01/13/20 05/09/21 History nystatin [Nystop] See Rx Instructions .ROUTE .COMPLEX 08/03/20 05/09/21 History rosuvastatin 20 mg PO DAILY 08/03/20 05/09/21 History cetirizine 10 mg PO DAILY 05/09/21 05/09/21 History pen needle, diabetic [TRUEplus Pen 05/09/21 05/09/21 History Needle] Current Medications: Active Medications Aspirin (Aspirin 81 Mg Enteric Tablet) 81 mg PO DAILY [facility] Last Admin: 05/12/21 10:05 Dose: 81 mg Documented by: Citalopram Hydrobromide (Citalopram Hydrobromide 20 Mg Tablet) 20 mg PO DAILY [facility] Last Admin: 05/11/21 08:09 Dose: 20 mg Documented by: Clopidogrel Bisulfate (Clopidogrel Bisulfate 75 Mg Tablet) 75 mg PO DAILY [facility] Last Admin: 05/12/21 10:20 Dose: 75 mg Documented by: Dextrose (Dextrose 50% 25 Gm/50 Ml Syringe) 12.5 gm IV PUSH PRN PRN; Protocol PRN Reason: Hypoglycemia Fluconazole (Fluconazole 150 Mg Tablet) 150 mg PO DAILY [facility] Stop: 05/13/21 09:01 Last Admin: 05/11/21 12:27 Dose: 150 mg Documented by: Glimepiride (Glimepiride 2 Mg Tablet) 4 mg PO BID [facility] Last Admin: 05/12/21 10:04 Dose: Not Given Documented by: Glucagon (Glucagon For Inj 1 Mg Vial) 1 mg IM PRN PRN; Protocol PRN Reason: Hypoglycemia Glucose (Glucose Oral Gel 15 Gm Of Glucse In 37.5 Gm Tube) 15 gm PO PRN PRN; Protocol PRN Reason: Hypoglycemia Dextrose (Dextrose 5% 1,000 Ml) 1,000 mls @ 100 mls/hr IVPB PRN PRN; Protocol PRN Reason: Hypoglycemia Insulin Aspart (Insulin Aspart (*Bkc) 100 Units/Ml) 3 - 6 units SUB-Q TIDWM [facility]; Protocol Last Admin: 05/12/21 10:03 Dose: Not Given Documented by: Insulin Glargine (Insulin Glargine (*Bkc) 100 Units/Ml) 35 units SUB-Q HS [facility] Last Admin: 05/11/21 19:59 Dose: 35 units Documented by: Lisinopril (Lisinopril 2.5 Mg Tablet) 2.5 mg PO DAILY [facility] Last Admin: 05/12/21 10:07 Dose: 2.5 mg Documented by: Loratadine (Loratadine 10 Mg Tablet) 10 mg PO DAILY [facility] Last Admin: 05/12/21 10:08 Dose: 10 mg Documented by: Magnesium Oxide (Magnesium Oxide 400 Mg Tablet) 400 mg PO DAILY [facility] Last Admin: 05/11/21 08:09 Dose: 400 mg Documented by: Metoprolol Tartrate (Metoprolol Tartrate 25 Mg Tablet) 25 mg PO Q12HR [facility] Last Admin: 05/12/21 10:08 Dose: 25 mg Documented by: Miconazole Nitrate (Miconazole 2% Antifungal Ointment 56 Gm) 1 applic TOPICAL Q12HR [facility] Last Admin: 05/12/21 10:09 Dose: 1 applic Documented by: Morphine Sulfate (Morphine Sulfate (*Crx) 4 Mg/Ml Inj) 4 mg IV PUSH Q2H PRN PRN Reason: Pain Rated 7-10 Ondansetron HCl (Ondansetron Inj 4 Mg/2 Ml Vial) 4 mg IV PUSH Q4H PRN PRN Reason: Nausea Last Admin: 05/09/21 18:40 Dose: 4 mg Documented by: Pantoprazole Sodium (P
--- NOTE | 2021-05-12 10:43 | PC.NURSE ---
TO [facility] VIA STRETCHER FOR [facility] W/ DR. MALLORY.
--- NOTE | 2021-05-12 11:34 | WPDCARDPROC ---
Cardiac Cath Procedure Note Date of procedure:: 05/12/21 Performing physician:: Js Myers MD Indication:: Coronary artery disease with previous PCI to a LAD diagonal branch chest pain event with evidence of ACS coincident with patient being noncompliant with medication last week mitral regurgitation previous congenital surgery details unknown and placement of epicardial pacing system previously Brief clinical history:: this is a 55-year-old woman who receives her care from another Cardiology group that does not practice here at [facility]. She reports a prior history of congenital surgery in [place] in the remote past the details which are not available to me. At that time she also had a epicardial pacemaker placed. She was found to have coronary disease subsequently and had a diagonal branch of the LAD treated with stenting it was found in 2018 that that vessel with had progressed to total occlusion. She enters the hospital now with an episode of chest pain last week that was coincident with her not taking any of her medication that day. In that setting a follow-up angiogram was recommended. Procedure Procedure performed:: Coronary angiography left ventriculography Sedation/Medication given:: fentanyl 50 mg Versed 2 mg case start time 11:03 a.m. case end time 11:24 a.m. sedation provided by Ronald Lin RN, trained observer Access site:: right femoral artery Estimated blood loss:: 15 cc Procedure note:: patient was brought to the cardiac catheterization lab in the postabsorptive state. The right femoral triangle was prepared and draped. Anesthesia was given with 1% lidocaine infiltrated locally. Using the modified Seldinger technique a 5 [place] sheath was placed into the femoral artery after this left heart catheterization was carried out. I used a 5 [place] FL 3.5 catheter to engage inject the left coronary artery. A 5 [place] JR4 catheter was used to engage and inject the RCA. Cineangiograms were then reviewed. A 5 [place] angled pigtail catheter was used to inject the left ventricle in the 30 degree FOFANA projection. Following this the patient was taken to the holding area for sheath removal. The procedure was well tolerated otherwise uncomplicated. She left the laboratory assistant with no evidence of a groin hematoma. Findings:: Hemodynamics: The central aortic pressure was 1 for 76 in the ventricle 150 over gonzalez end-diastolic pressure 18. There is no significant gradient on pullback across the aortic valve. Left ventricle: The left ventricle is mildly enlarged. The base of the posterior inferior wall is akinetic the remainder of the ventricle contracts relatively well the global ejection fraction is 50-55%. There is the angiographic MR 3+. The left main coronary artery is nicely patent the left anterior descending is a medium caliber artery extending down to around the apex it extends around to the apical portion of the inferior wall. There is no significant disease in the LAD itself. There is a long diagonal branch of the LAD which has a stent that was placed previously angiographically the vessel is 100% occluded at this segment. This is unchanged compared to films from 2018. The circumflex is a medium caliber long dominant artery. The circumflex has no proximal disease. There is a paucity of significant marginal branches proximally. The left PDA has a mid stenosis of about 70%. It is a very small terminal circumflex vessel. The right coronary artery is small in caliber non dominant giving rise to a acute marginal RV branch without significant disease Conclusion:: 1. coronary artery disease with chronic total occlusion of the diagonal branch of the LAD in its midportion which was previously stented in the remote past and is known to be a chronically total occluded area. 2. Moderate 70% stenosis in the small left PDA 3. non diseased non dominant RCA 4. 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
--- NOTE | 2021-05-12 11:40 | PC.NURSE ---
RETURNS TO JOB COACHING 1 VIA STRETCHER S/P [facility] W/ DR. MALLORY. AWAKE AND ALERT. 5FR SHEATH INTACT. R. GROIN. DENIES PAIN OR SOB ON ARRIVAL. SEE PHASE II RECOVERY FOR DOCUMENTATION.
[2021-05-12] MEDS: SODIUM CHLORIDE 0.9% IV 1,000 ML 125 ML IV CONT (12:30)
--- NOTE | 2021-05-12 12:38 | PC.NURSE ---
HEMOSTASIS ACHIEVED TO R. GROIN PUNCTURE SITE AFTER 30 MINUTES MANUAL PRESSURE HOLD TO SITE BY SHAE Steinberg RN. SITE DRESSED, AND CLEAR. BEDREST X 4 HOURS UNTIL 1640. WILL CONTINUE TO MONITOR.
--- NOTE | 2021-05-12 14:48 | PM.IMPN ---
Progress Note: A&P Assessment and Plan (1) Chest pain: Qualifiers: Chest pain type: unspecified Qualified Code(s): R07.9 - Chest pain, unspecified Code(s): R07.9 - Chest pain, unspecified Status: Acute Assessment and Plan: Consistent with her prior [place] chest pain Hx of chronic pain and also has history of GERD Hx of CAD, Cardiology was consulted in the emergency department Initial troponin negative, second moderately elevated at 0.510-->1.43->1.610 S/p aspirin 324 mg Sublingual nitro morphine as needed for pain Appreciate cardiology's recommendations CXR-->left basilar airspace disease which may represent atelectasis or pneumonia, pt afebrile, no leukocytosis, denies any cough ECHO-->EF of 50-60%, regional wall motion assessment limited due to poor myocardial for definition in several views; grade II diastolic dysfunction; moderate mitral valve stenosis; mild mitral valve regurgitation; mild tricuspid valve regurgitation; severe pulmonary hypertension, estimated pulmonary arterial systolic pressure is 61 mmHg CC-->LAD stent patent; unchanged (2) Hypertension: Qualifiers: Hypertension type: unspecified Qualified Code(s): I10 - Essential (primary) hypertension Code(s): I10 - Essential (primary) hypertension Status: Acute Assessment and Plan: Continue home lisinopril and metoprolol (3) Depression with anxiety: Code(s): F41.8 - Other specified anxiety disorders Status: Chronic Assessment and Plan: Continue home citalopram (4) Coronary artery disease: Onset Date: ~11/2017 Qualifiers: Coronary Disease-Associated Artery/Lesion type: [place] artery [place] vs. transplanted heart: [place] heart Associated angina: without angina Qualified Code(s): I25.10 - Atherosclerotic heart disease of [place] coronary artery without angina pectoris Code(s): I25.10 - Atherosclerotic heart disease of [place] coronary artery without angina pectoris Status: Acute Assessment and Plan: Continue home Plavix Continue home aspirin Continue metoprolol (5) Insulin dependent type 2 diabetes mellitus: Code(s): E11.9 - Type 2 diabetes mellitus without complications; Z79.4 - penitentiary (current) use of insulin Status: Acute Assessment and Plan: Sliding scale insulin Continue home Lantus equivalent, she is on 35 units at home Monitor closely hemoglobin A1c 11.7 (6) GERD (gastroesophageal reflux disease): Qualifiers: Esophagitis presence: esophagitis presence not specified Qualified Code(s): K21.9 - Gastro-esophageal reflux disease without esophagitis Code(s): K21.9 - Gastro-esophageal reflux disease without esophagitis Status: Chronic Assessment and Plan: Continue pantoprazole (7) HLD (hyperlipidemia): Qualifiers: Hyperlipidemia type: unspecified Qualified Code(s): E78.5 - Hyperlipidemia, unspecified Code(s): E78.5 - Hyperlipidemia, unspecified Status: Chronic Assessment and Plan: Continue rosuvastatin (8) DVT prophylaxis: Code(s): Z29.9 - Encounter for prophylactic measures, unspecified Status: Acute Assessment and Plan: SCDs for now (9) NSTEMI (non-ST elevated myocardial infarction): Code(s): I21.4 - Non-ST elevation (NSTEMI) myocardial infarction Status: Acute Assessment and Plan: Treatment as above S/p CC (10) Nidhi infection of genital region: Code(s): B37.49 - Other urogenital candidiasis Status: Acute Assessment and Plan: Diflucan 150 mg x3 days Supportive care Additional Plan Code status: Full code Home O2 assessment; home with [facility] tomorrow Subjective Date/time seen: 05/12/21 14:48 Interval history: Pt seen and evaluated; on RA; no acute events overnight; no new complaints; on bedrest until 1600 s/p CC Review of Systems Review of Systems: All systems reviewed & are u
--- NOTE | 2021-05-12 16:40 | PC.NURSE ---
BEDREST X 4 HOURS COMPLETE. NO CHANGE IN R. GROIN SITE STATUS. IVF'S CONTINUE ORDERED.
[2021-05-12] MEDS: CITALOPRAM HYDROBROMIDE 20 MG TABLET PO (16:59)
[2021-05-12] MEDS: FLUCONAZOLE 150 MG TABLET PO (16:59)
[2021-05-12] MEDS: MAGNESIUM OXIDE 400 MG TABLET PO (16:59)
[2021-05-12] MEDS: ROSUVASTATIN 10 MG TABLET 20 MG PO (17:00)
[2021-05-12] MEDS: rOPINIRole HCL 1 MG TABLET 2 MG PO (17:02)
[2021-05-12 17:15] LABS: Glucose Point of Care 80 mg/dl (65-105)
[2021-05-12] MEDS: INSULIN GLARGINE (*BKC) 100 UNITS/ML 35 UNITS SUB-Q (21:11)
[2021-05-12 21:24] LABS: Glucose Point of Care 264 mg/dl (65-105)
[2021-05-13] VITALS (11 sets, daily range): BP systolic 97–117; BP diastolic 57–89; PULSE 71–90; RESP 18–22; TEMP 36.1–37.2; O2SAT 93–98
[2021-05-13 06:27] LABS: Anion Gap 8 mmol/L (8-16); Blood Urea Nitrogen 17 mg/dL (7-17); Calcium 8.4 mg/dL (8.4-10.2); Carbon Dioxide 25 mmol/L (22-30); Chloride 104 mmol/L (98-107); Estimated CRCL calculation 58 ml/min; Estimated Glomerular Filt Rate > 60; Glucose 148 mg/dL (65-110); Potassium 4.2 mmol/L (3.4-5.0); Sodium 137 mmol/L (137-145)
[2021-05-13 08:16] LABS: Glucose Point of Care 143 mg/dl (65-105)
[2021-05-13] MEDS: ASPIRIN 81 MG ENTERIC TABLET PO (08:19)
[2021-05-13] MEDS: lisinopriL 2.5 MG TABLET PO (08:20)
[2021-05-13] MEDS: CLOPIDOGREL BISULFATE 75 MG TABLET PO (08:20)
[2021-05-13] MEDS: CITALOPRAM HYDROBROMIDE 20 MG TABLET PO (08:20)
[2021-05-13] MEDS: FLUCONAZOLE 150 MG TABLET PO (08:20)
[2021-05-13] MEDS: GLIMEPIRIDE 2 MG TABLET 4 MG PO (08:20)
[2021-05-13] MEDS: LORATADINE 10 MG TABLET PO (08:21)
[2021-05-13] MEDS: MAGNESIUM OXIDE 400 MG TABLET PO (08:21)
[2021-05-13] MEDS: METOPROLOL TARTRATE 25 MG TABLET PO (08:22)
[2021-05-13] MEDS: PANTOPRAZOLE 40 MG TABLET PO (08:22)
[2021-05-13] MEDS: rOPINIRole HCL 1 MG TABLET 2 MG PO ×2 (08:23→12:02)
[2021-05-13] MEDS: ROSUVASTATIN 10 MG TABLET 20 MG PO (08:23)
--- NOTE | 2021-05-13 08:31 | PM.PNCARD ---
Progress Note: A&P Assessment and Plan (1) NSTEMI (non-ST elevated myocardial infarction): Code(s): I21.4 - Non-ST elevation (NSTEMI) myocardial infarction Status: Acute Assessment and Plan: Most likely secondary to noncompliance with medications prior to presentation. Concerning ischemic chest pain or presentation resolved but with troponin elevation concerning for mild acute infarction but asymptomatic at this time. AV paced, EKG unrevealing. Troponin trend consistent NSTEMI troponins downward trending on repeat check. 2D echo technically difficult but 55-60% unable to assess regional wall motion abnormalities [facility] findings: 1. coronary artery disease with chronic total occlusion of the diagonal branch of the LAD in its midportion which was previously stented in the remote past and is known to be a chronically total occluded area. 2. Moderate 70% stenosis in the small left PDA 3. non diseased non dominant RCA 4. 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 Continue aggressive risk factor modification for CAD Continue ASA Continue plavix Continue statin (2) Coronary artery disease: Onset Date: ~11/2017 Qualifiers: Associated angina: without angina Coronary Disease-Associated Artery/Lesion type: [place] artery [place] vs. transplanted heart: [place] heart Qualified Code(s): I25.10 - Atherosclerotic heart disease of [place] coronary artery without angina pectoris Code(s): I25.10 - Atherosclerotic heart disease of [place] coronary artery without angina pectoris Status: Acute Assessment and Plan: Continue statin, aspirin, clopidogrel, metoprolol. History of prior [place], PCI to diagonal branch off the LAD last angiography 2019 total occlusion of stented diagonal no other significant disease history of prior sternotomy reportedly for repair of ?hole in her heart? pacemaker placed followed by Dr. Montalvo as an outpatient. (3) Hypoxia: Code(s): R09.02 - Hypoxemia Status: Acute Assessment and Plan: Patient with ongoing excessive fatigue and exertional dyspnea. Oxygen saturations improved overall. Chest x-ray unremarkable, BNP minimally elevated. She is not in decompensated heart failure at this time. Dyspnea may be anginal equivalent although given severe pulmonary hypertension suspect untreated MEEK. (4) Pulmonary hypertension: Code(s): I27.20 - Pulmonary hypertension, unspecified Status: Acute Assessment and Plan: Severe, RVSP 61 mm Hg. Suspect related to untreated MEEK. Patient was supposed to follow up as an outpatient but had not yet done so due to transportation limitations she states. (5) Pacemaker: Code(s): Z95.0 - Presence of cardiac pacemaker Status: Acute Assessment and Plan: AV paced rhythm. (6) Insulin dependent type 2 diabetes mellitus: Code(s): E11.9 - Type 2 diabetes mellitus without complications; Z79.4 - intermediate accountant (current) use of insulin Status: Acute Assessment and Plan: Per primary service. Subjective Date/time seen: 05/13/21 08:31 Interval history: Date of service 05/13/2021: Patient is feeling well this morning. No events overnight. Paced rhythm on telemetry. Denies any chest pain, shortness of breath. Stable for discharge home today from a cardiac perspective. She should follow-up with her drawer in jacquard loom, Dr. Montalvo as an outpatient. Review of Systems Review of Systems: All systems reviewed & are unremarkable except as noted in HPI and below Constitutional: Constitutional: Reports as per HPI, Reports fatigue and Denies lethargy Eyes: Eyes: Reports as per HPI and Reports no additional eye complaints ENT: Reports system reviewed and no additional complaints, except as documented and Reports as per HPI Cardiovascular: Cardiovascular: Reports as per HPI, Denies chest pain, Denies diaphoresis, Denies pedal edema, Denies leg edema, Den
--- NOTE | 2021-05-13 09:11 | HOMEO2EVAL ---
Evaluation was performed at [facility] Home Oxygen Evaluation RC: Home Oxygen (O2) Evaluation Start: 05/12/21 14:44 Freq: ONCE Status: Active Protocol: RPE Activity Type Activity Date Activity User E-Sign Co-Sign Detail Recorded Client Recorded Date Recorded By Document 05/13/21 08:55 SKYLER [email or web address] 05/13/21 09:10 SKYLER Document 05/13/21 09:00 SKYLER [email or web address] 05/13/21 09:10 SKYLER Document 05/13/21 09:05 SKYLER [email or web address] 05/13/21 09:10 SKYLER 05/13/21 05/13/21 05/13/21 08:55 09:00 09:05 Home O2 Evaluation Test Phase Resting Exercise Resting Oxygen Delivery Room Air Room Air Room Air Pulse Oximetry (90-100 %) 95 93 98 Pulse Rate (60-100 beats/min) 82 90 88 Home Oxygen Evaluation Comments NO HOME O2 NEEDED. Treatment Charges O2 Evaluation - Inpatient
--- NOTE | 2021-05-13 09:11 | PCRCNOTE ---
HOME O2 EVAL COMPLETED. NO HOME O2 NEEDED. RN NOTIFIED
[2021-05-13] MEDS: INSULIN ASPART (*BKC) 100 UNITS/ML SUB-Q (12:13)
[2021-05-13 12:15] LABS: Glucose Point of Care 287 mg/dl (65-105)
--- NOTE | 2021-05-13 12:23 | PM.DS ---
DS: Admitting Diagnosis Discharge Date 05/13/21 Admitting Diagnosis Chest tightness DS: Discharge Diagnosis Discharge Diagnosis (1) Chest pain: Qualifiers: Chest pain type: unspecified Qualified Code(s): R07.9 - Chest pain, unspecified Code(s): R07.9 - Chest pain, unspecified Status: Acute Assessment and Plan: The patient is a 55-year-old woman with a past medical history of diabetes, dyslipidemia, hypertension, peripheral neuropathy, valvular heart disease status post mitral valve repair, GERD, depression/anxiety, chronic anemia, sick sinus syndrome status post pacemaker implantation, congestive heart failure, an extensive history of coronary artery disease with history of [place], status post stenting to LAD, who presents to the emergency department with chest pain. She reports she did not take her medications yesterday that she was out shopping. That includes her aspirin and Plavix. She also did not take her insulin. On arrival vitals showed, blood pressure was 169/78 heart rate 87, temperature 36.9?, pulse ox 97% on room air. Labs showed hemoglobin 12.4, WBC 4.6, platelets 239, sodium 133, potassium 4.1, chloride 101, bicarb 23, anion gap 9, BUN 19, creatinine 1.2, glucose 447, calcium 8.2, normal liver function tests except elevated alkaline phosphatase, troponin 0.013, albumin 3.9, urinalysis with glucose and protein, no significant rbc's or wbc's. Cardiology was consulted and the patient's troponins were consistent with NSTEMI and downward trending on repeat check. The patient continued to have symptoms so she had a cardiac catheterization performed by the paper cleaner on Wednesday which showed coronary artery disease with chronic total occlusion of the diagonal branch of the LAD in its midportion which was previously stented in the remote past and is known to be a chronically total occluded area. Moderate 70% stenosis in the small left PDA. non diseased non dominant RCA dietitian teacher basal akinesia with 3+ MR global ejection fraction 50-55%. She will be continued on aggressive risk factor modification for CAD with aspirin, Plavix, statin. Educated the patient about diabetes management and control. She does not check her glucose regularly. I gave her a new glucometer and sent for test strips upon discharge so she can check her sugars 4 times a day. Told her to keep a log to follow-up with her primary care to make further adjustments to her insulin. Educated on diet changes. The patient feels eager to make these changes after everything she has gone to a few days. I will also set her up with an outpatient in service educator. Return to ER warnings given. Patient understands and agrees with the plan. All questions answered. (2) Hypertension: Qualifiers: Hypertension type: unspecified Qualified Code(s): I10 - Essential (primary) hypertension Code(s): I10 - Essential (primary) hypertension Status: Acute (3) Depression with anxiety: Code(s): F41.8 - Other specified anxiety disorders Status: Chronic (4) Coronary artery disease: Onset Date: ~11/2017 Qualifiers: Associated angina: without angina Coronary Disease-Associated Artery/Lesion type: [place] artery [place] vs. transplanted heart: [place] heart Qualified Code(s): I25.10 - Atherosclerotic heart disease of [place] coronary artery without angina pectoris Code(s): I25.10 - Atherosclerotic heart disease of [place] coronary artery without angina pectoris Status: Acute (5) Insulin dependent type 2 diabetes mellitus: Code(s): E11.9 - Type 2 diabetes mellitus without complications; Z79.4 - long term care pharmacist (current) use of insulin Status: Acute (6) GERD (gastroesophageal reflux disease): Qualifiers: Esophagitis presence: esophagitis presence not specified Qualified Code(s): K21.9 - Gastro-esophageal reflux disease without esophagitis Code(s): K21.9 - Gastro-esophageal reflux
== END 2021-05-13 14:48 | disposition home health service (06) | DRG 190 ==
LOC: ANHED 07:45 → ANHIMU 08:22 → ANHCPC 15:18
PROVIDERS: Internal Medicine Cardiovascular Disease; Nurse Practitioner Adult Health; Specialist; Admitting Provider Internal Medicine Nephrology; Emergency Provider Emergency Medicine; PCP Nurse Practitioner Family; Visit Provider Physician Assistant
PROC: 4A023N7 Measurement of Cardiac Sampling and Pressure, Left Heart, Percutaneous Approach (ICD-10-PCS; CPT 93452; principal; 2021-05-12 10:00)
DX: I21.4 Non-ST elevation (NSTEMI) myocardial infarction (principal); I25.10 Atherosclerotic heart disease of native coronary artery without angina pectoris; R09.02 Hypoxemia; I10 Essential (primary) hypertension; K21.9 Gastro-esophageal reflux disease without esophagitis; E78.5 Hyperlipidemia, unspecified; B37.49 Other urogenital candidiasis; D64.9 Anemia, unspecified; L30.9 Dermatitis, unspecified; M19.90 Unspecified osteoarthritis, unspecified site; G25.81 Restless legs syndrome; G47.33 Obstructive sleep apnea (adult) (pediatric); E11.42 Type 2 diabetes mellitus with diabetic polyneuropathy; F41.8 Other specified anxiety disorders; E55.9 Vitamin D deficiency, unspecified; I25.2 Old myocardial infarction; Z79.4 Long term (current) use of insulin; Z95.0 Presence of cardiac pacemaker; Z95.5 Presence of coronary angioplasty implant and graft; Z79.02 Long term (current) use of antithrombotics/antiplatelets; Z79.82 Long term (current) use of aspirin; Z91.14 Patient's other noncompliance with medication regimen
CPT/HCPCS: 36415; 71045; 80048; 80053; 81001; 82948; 83036; 83880; 84145; 84484; 85025; 85027; 85610; 85730; 93005; 93458; 94618; 96374; 96375; 96376; 97165; 99285; A9270; C1887; C1894; C8929; G0378; G0379; J0461; J1644; J1815; J2250; J2270; J2405; J3010; J7030; J7040; Q9957

== ENCOUNTER 2021-05-14 12:53 | Emergency (ER) | payer OTHER, SELFPAY ==
[2021-05-14 12:56] VITALS: BP 143/78; PULSE 94; RESP 18; TEMP 36.8; O2SAT 100
--- NOTE | 2021-05-14 14:43 | ED.GENADULT ---
HPI - General Adult General Chief complaint: Skin/Abscess/Foreign Body Stated complaint: WOUND FROM IV Time Seen by Provider: 05/14/21 13:43 Source: patient and RN notes reviewed Mode of arrival: ambulatory Limitations: no limitations History of Present Illness HPI narrative: Patient is 55 years old white female presented to the ED with pain and redness of the left forearm posteriorly. Patient had IV access by EMT 7 days ago, and her way to our emergency room. Got discharged yesterday with a diagnosis of chest pain and hypertension, work-up this morning and noticed redness and swelling of the left forearm posteriorly. Patient denies any fever, chills, nausea, vomiting, chest pain, shortness of breath. Related Data Home Medications Medication Instructions Recorded Confirmed aspirin [Adult Low Dose Aspirin] 81 mg PO DAILY 07/05/19 05/09/21 citalopram 20 mg PO DAILY 07/05/19 05/09/21 clopidogrel [Plavix] 75 mg PO DAILY 07/05/19 05/09/21 nitroglycerin [Nitrostat] 0.4 mg SUBLINGUAL Q5-15M PRN 07/05/19 05/09/21 pantoprazole 40 mg PO DAILY 07/05/19 05/09/21 glimepiride 4 mg PO BID 08/20/19 05/09/21 ropinirole 2 mg PO TID 08/20/19 05/09/21 magnesium oxide 400 mg PO DAILY 10/12/19 05/09/21 metoprolol tartrate 25 mg PO BID 10/12/19 05/09/21 lisinopril 2.5 mg PO DAILY 01/13/20 05/09/21 nystatin [Nystop] See Rx Instructions .ROUTE .COMPLEX 08/03/20 05/09/21 rosuvastatin 20 mg PO DAILY 08/03/20 05/09/21 cetirizine 10 mg PO DAILY 05/09/21 05/09/21 Allergies Allergy/AdvReac Type Severity Reaction Status Date / Time azithromycin Allergy Severe Gastrointestinal Verified 05/09/21 10:49 Upset Review of Systems Review of Systems: CONSTITUTIONAL: Denies fever, chills, or sweats. EYES: Denies visual changes, redness, or discharge. ENT: Denies rhinorrhea, congestion, sore throat, or otalgia. CARDIOVASCULAR: Denies chest pain, palpitations, or edema. RESPIRATORY: Denies cough or dyspnea. GASTROINTESTINAL: Denies abdominal pain, nausea, vomiting, or diarrhea. GENITOURINARY: Denies dysuria or hematuria. SKIN: Denies rash or itching. MUSCULOSKELETAL: Denies back pain, joint pain, or myalgia. NEUROLOGIC: Denies headache, numbness, or weakness. PSYCHIATRIC: Denies anxiety or depression. [facility] Past Medical History Medical History Anemia With history of blood transfusion. AV block Status post atrial pacemaker insertion. CHF (congestive heart failure) Coronary artery disease (~11/2017) Cardiac catheterization per Dr. Montalvo demonstrated distal 1st diagonal vessel total occlusion status post angioplasty and stent placement. Depression with anxiety Diabetic peripheral neuropathy Eczema Gastroesophageal reflux disease Hyperlipidemia Hypertension Insulin dependent type 2 diabetes mellitus Hemoglobin A1c was 9.8% in July 2019. Myocardial infarction x2 Osteoarthritis Peripheral neuropathy Previous known suicide attempt Restless leg syndrome Seasonal allergies Septal defect Patient on certain whether this was an ASD or VSD repair, done at the age of 39. Valvular heart disease Status post mitral valve repair. ADARSH September 18, 2019 showed moderate to severe mitral valve calcification with decreased movement and evidence of moderate mitral valve regurgitation. Vitamin D deficiency Surgical History Surgical History History of History of cardiac catheterization (~11/2017) Status post angioplasty and stent placement to distal 1st diagonal per Dr. Montalvo. History of permanent cardiac pacemaker placement x2 History of sternectomy Repaired hole in heart, patient unsure whether it was in atrial or ventricular septal defect. Family History Family History Mother Peripheral vascular disease Sibling Diabetes mellitus Social History Social History (Reviewed 05/14/21 @
[2021-05-14 16:43] VITALS: BP 128/64; PULSE 94; RESP 16; TEMP 37.2; O2SAT 98
== END 2021-05-14 17:00 | disposition home or self-care (01) ==
PROVIDERS: Emergency Provider Emergency Medicine
DX: T80.29XA Infection following other infusion, transfusion and therapeutic injection, initial encounter (principal); L03.114 Cellulitis of left upper limb; I50.9 Heart failure, unspecified; I11.0 Hypertensive heart disease with heart failure; I25.10 Atherosclerotic heart disease of native coronary artery without angina pectoris; E11.42 Type 2 diabetes mellitus with diabetic polyneuropathy; K21.9 Gastro-esophageal reflux disease without esophagitis; E78.5 Hyperlipidemia, unspecified; M19.90 Unspecified osteoarthritis, unspecified site; I25.2 Old myocardial infarction; G25.81 Restless legs syndrome; E55.9 Vitamin D deficiency, unspecified; Z95.5 Presence of coronary angioplasty implant and graft; Z95.0 Presence of cardiac pacemaker; Z79.02 Long term (current) use of antithrombotics/antiplatelets; Z79.82 Long term (current) use of aspirin; Z79.84 Long term (current) use of oral hypoglycemic drugs
CPT/HCPCS: 96365; 99284; J3370

== ENCOUNTER 2021-12-04 13:00 | Outpatient (RCR) | payer SELFPAY | END 2021-12-15 12:36 | disposition home or self-care (01) | LOC: ANHDMC 13:00 | PROVIDERS: PCP Nurse Practitioner Family; Visit Provider Nurse Practitioner Family | DX: E11.65 Type 2 diabetes mellitus with hyperglycemia (principal); Z71.89 Other specified counseling | CPT/HCPCS: 99199; G0108 ==

== ENCOUNTER 2021-12-18 06:18 | Emergency (ER) | payer OTHER, SELFPAY ==
--- NOTE | ~2021-12-18 | XR_ITS ---
EXAMINATION: XR chest 2V EXAM DATE: 12/18/2021 06:55 INDICATION: Chest pain. TECHNIQUE: Frontal and lateral projections of the chest obtained and reviewed. Comparison is made to prior examination from 05/10/2021. FINDINGS: Sternotomy wires are present without findings to suggest sternal dehiscence. There is card iomegaly and pulmonary vascular congestion. Pacemaker/AICD device. Small left pleural effusion. Indis tinct bibasilar reticulation, suspicious for mild pulmonary edema. No pneumothorax or confluent conso lidation. There are no osseous abnormalities identified. IMPRESSION: Findings suspicious for mild CHF exacerbation, clinical correlation. Reviewed, dictated and finalized at location A. IMPRESSION: Findings suspicious for mild CHF exacerbation, clinical correlation .
[2021-12-18 06:21] VITALS: BP 152/78; PULSE 84; RESP 19; O2SAT 100
--- NOTE | 2021-12-18 06:21 | ECG_ITS ---
Measurements Intervals [place] Rate: 80 P: 15 ME: 200 QRS: -53 QRSD: 185 T: 99 QT: 450 QTc: 522 Interpretive Statements ELECTRONIC ATRIAL PACEMAKER ELECTRONIC VENTRICULAR PACEMAKER NO FURTHER INTERPRETATION POSSIBLE COMPARED TO ECG 05/09/2021 05:21:14 NO SIGNIFICANT CHANGES Electronically Signed On 12-18-2021 16:48:09 CDT by Terence Eric M.D.
[2021-12-18 06:41] LABS: Basophils Percent Auto 0.5 % (0.2-1.2); Eosinophils Absolute Auto 0.1 K/mm3 (0-0.3); Hematocrit 37.1 % (37.0-47.0); Hemoglobin 11.8 g/dL (12.0-15.0); Immature Granulocyte Absolute 0.03 K/mm3 (0.00-0.031); Immature Granulocyte Percent A 0.5 % (0-0.5); Mean Corpuscular HGB Conc 31.8 g/dl (32-36); Mean Corpuscular Volume 78.6 fl (80-100); Mean Platelet Volume 10.4 fl (7.4-10.4); Monocytes Absolute Auto 0.5 K/mm3 (0.1-0.6); Monocytes Percent Auto 8.5 % (2.6-8.5); Neutrophils Absolute Auto 4.6 K/mm3 (1.3-6.7); Neutrophils Percent Auto 73.5 % (45.5-73.1); Platelet Count Result 225 k/mm3 (150-375); Red Blood Count 4.72 M/mm3 (4.2-5.4); Red Cell Distribution Width 14.8 % (11.5-14.5); White Blood Count 6.2 K/mm3 (4.5-10.0)
[2021-12-18] MEDS: ASPIRIN 81 MG CHEWABLE TABLET 324 MG PO (06:50)
[2021-12-18 06:52] LABS: Alanine Aminotransferase 29 U/L (4-35); Albumin Level 4.2 g/dL (3.5-5.1); Alkaline Phosphatase 157 U/L (38-126); Anion Gap 9 mmol/L (8-16); Aspartate Amino Transferase 30 U/L (14-36); Bilirubin,Total 0.6 mg/dL (0.2-1.3); Blood Urea Nitrogen 31 mg/dL (7-17); Calcium 8.5 mg/dL (8.4-10.2); Carbon Dioxide 24 mmol/L (22-30); Chloride 103 mmol/L (98-107); Estimated Glomerular Filt Rate 46; Glucose 263 mg/dL (65-110); Lipase 68 U/L (23-300); Potassium 4.3 mmol/L (3.4-5.0); Sodium 136 mmol/L (137-145)
[2021-12-18 07:04] LABS: Troponin I < 0.012 ng/mL (0.000-0.034)
[2021-12-18 07:08] LABS: Prothrombin Time 13.1 Seconds (11.1-14.7)
[2021-12-18 07:09] LABS: Partial Thromboplastin Time 27.6 SECONDS (22.3-36.8)
--- NOTE | 2021-12-18 07:21 | ED.CHESTPAIN ---
HPI - Chest Pain General Chief Complaint: Chest Pain Stated Complaint: chest pain Time Seen by Provider: 12/18/21 07:21 Source: patient Related Data Home Medications Medication Instructions Recorded Confirmed aspirin [Adult Low Dose Aspirin] 81 mg PO DAILY 07/05/19 05/09/21 citalopram 20 mg PO DAILY 07/05/19 05/09/21 clopidogrel [Plavix] 75 mg PO DAILY 07/05/19 05/09/21 nitroglycerin [Nitrostat] 0.4 mg SUBLINGUAL Q5-15M PRN 07/05/19 05/09/21 pantoprazole 40 mg PO DAILY 07/05/19 05/09/21 glimepiride 4 mg PO BID 08/20/19 05/09/21 ropinirole 2 mg PO TID 08/20/19 05/09/21 magnesium oxide 400 mg PO DAILY 10/12/19 05/09/21 metoprolol tartrate 25 mg PO BID 10/12/19 05/09/21 lisinopril 2.5 mg PO DAILY 01/13/20 05/09/21 nystatin [Nystop] See Rx Instructions .ROUTE .COMPLEX 08/03/20 05/09/21 rosuvastatin 20 mg PO DAILY 08/03/20 05/09/21 cetirizine 10 mg PO DAILY 05/09/21 05/09/21 Allergies Allergy/AdvReac Type Severity Reaction Status Date / Time azithromycin Allergy Severe Gastrointestinal Verified 05/09/21 10:49 Upset PMFSH Past Medical History Medical History Anemia With history of blood transfusion. AV block Status post atrial pacemaker insertion. CHF (congestive heart failure) Coronary artery disease (~11/2017) Cardiac catheterization per Dr. Montalvo demonstrated distal 1st diagonal vessel total occlusion status post angioplasty and stent placement. Depression with anxiety Diabetic peripheral neuropathy Eczema Gastroesophageal reflux disease Hyperlipidemia Hypertension Insulin dependent type 2 diabetes mellitus Hemoglobin A1c was 9.8% in July 2019. Myocardial infarction x2 Osteoarthritis Peripheral neuropathy Previous known suicide attempt Restless leg syndrome Seasonal allergies Septal defect Patient on certain whether this was an ASD or VSD repair, done at the age of 39. Valvular heart disease Status post mitral valve repair. ADARSH September 18, 2019 showed moderate to severe mitral valve calcification with decreased movement and evidence of moderate mitral valve regurgitation. Vitamin D deficiency Surgical History Surgical History History of History of cardiac catheterization (~11/2017) Status post angioplasty and stent placement to distal 1st diagonal per Dr. Montalvo. History of permanent cardiac pacemaker placement x2 History of sternectomy Repaired hole in heart, patient unsure whether it was in atrial or ventricular septal defect. Family History Family History Mother Peripheral vascular disease Sibling Diabetes mellitus Social History Social History Social History: The patient currently lives in her own home with her boyfriend. She is on disability. She is a lifelong nonsmoker and denies alcohol and drug abuse. She designates her daughter, Preethi Rai, as her surrogate decision maker and she wishes to be a full code. The patient has 1 biological child and then has adopted another child. The patient desires to be a full code. Smoking status: Never smoker Second hand tobacco smoke exposure: Yes Alcohol intake: never Substance use: never Substance use type: does not use Gender identity (if verbalized by the patient): Female Spiritual care concerns: No Agree to blood products: Yes Course Vital Signs Vital signs: Vital Signs Pulse Rate 84 12/18/21 06:21 Respiratory Rate 19 12/18/21 06:21 Blood Pressure 152/78 H 12/18/21 06:21 Pulse Oximetry 100 12/18/21 06:21 Pulse Rate 84 12/18/21 06:21 Respiratory Rate 19 12/18/21 06:21 Blood Pressure 152/78 H 12/18/21 06:21 Pulse Oximetry 100 12/18/21 06:21 MDM - Chest Pain Lab Data Result diagrams: 12/18/21 06:32 12/18/21 06:32 Labs: Lab
[2021-12-18 07:22] VITALS: PULSE 72
[2021-12-18 07:23] VITALS: BP 130/75; PULSE 77; RESP 20; O2SAT 94
--- NOTE | 2021-12-18 07:23 | PC.NURSE ---
Assumed care of pt at this time, bedside report received from Rocio LOPEZ. Pt is alert and upright on stretcher, on tele monitor w/ VSS. Pt repositioned and updated. No questions or concerns at this time. Discussed POC.
[2021-12-18 08:14] VITALS: BP 130/75; PULSE 79; RESP 21; O2SAT 97
--- NOTE | 2021-12-18 19:17 | ER_ITS ---
This report was moved to the correct visit, on 01/14/2022. Original report was signed by Rahat Martinez on 12/18/211916. ADDENDUM 2 charts for the same patient at the same day at the same time was opened. One of them was open accidentally ,the second one is completed. Please look at the completed chart on December 28, 2021 and I was the same doctor who opened both charts, one of the chart has been completed,the other one was a mistake. Thanks. Diagnosis: Pacemaker dysfunction, cardiac arrhythmia Disposition: Home Condition at the time of discharge: Stable Addendum Documented By: Rahat Martinez MD 01/03/221246 Addendum Signed By: <Electronically signed by Rahat Martinez MD> 124 HPI - General Adult General Source: patient Mode of arrival: ambulatory Limitations: no limitations History of Present Illness HPI narrative: Patient is 56 years old white female came to the emergency room because at 4 AM felt a jolt in the chest, subsequently felt chest pain and discomfort. Patient have pacemaker, currently she denies any fever, chills, nausea, vomiting, shortness of breath, chest pain or back pain. Related Data Home Medications Medication Instructions Recorded Confirmed aspirin [Adult Low Dose Aspirin] 81 mg PO DAILY 07/05/19 05/09/21 citalopram 20 mg PO DAILY 07/05/19 05/09/21 clopidogrel [Plavix] 75 mg PO DAILY 07/05/19 05/09/21 nitroglycerin [Nitrostat] 0.4 mg SUBLINGUAL Q5-15M PRN 07/05/19 05/09/21 pantoprazole 40 mg PO DAILY 07/05/19 05/09/21 glimepiride 4 mg PO BID 08/20/19 05/09/21 ropinirole 2 mg PO TID 08/20/19 05/09/21 magnesium oxide 400 mg PO DAILY 10/12/19 05/09/21 metoprolol tartrate 25 mg PO BID 10/12/19 05/09/21 lisinopril 2.5 mg PO DAILY 01/13/20 05/09/21 nystatin [Nystop] See Rx Instructions .ROUTE .COMPLEX 08/03/20 05/09/21 rosuvastatin 20 mg PO DAILY 08/03/20 05/09/21 cetirizine 10 mg PO DAILY 05/09/21 05/09/21 Allergies Allergy/AdvReac Type Severity Reaction Status Date / Time azithromycin Allergy Severe Gastrointestinal Verified 05/09/21 10:49 Upset Review of Systems Review of Systems: CONSTITUTIONAL: Denies fever, chills, or sweats. EYES: Denies visual changes, redness, or discharge. ENT: Denies rhinorrhea, congestion, sore throat, or otalgia. CARDIOVASCULAR: Denies chest pain, palpitations, or edema. RESPIRATORY: Denies cough or dyspnea. GASTROINTESTINAL: Denies abdominal pain, nausea, vomiting, or diarrhea. GENITOURINARY: Denies dysuria or hematuria. SKIN: Denies rash or itching. MUSCULOSKELETAL: Denies back pain, joint pain, or myalgia. NEUROLOGIC: Denies headache, numbness, or weakness. PSYCHIATRIC: Denies anxiety or depression. [facility] Past Medical History Medical History Anemia With history of blood transfusion. AV block Status post atrial pacemaker insertion. CHF (congestive heart failure) Coronary artery disease (~11/2017) Cardiac catheterization per Dr. Montalvo demonstrated distal 1st diagonal vessel total occlusion status post angioplasty and stent placement. Depression with anxiety Diabetic peripheral neuropathy Eczema Gastroesophageal reflux disease Hyperlipidemia Hypertension Insulin dependent type 2 diabetes mellitus Hemoglobin A1c was 9.8% in July 2019. Myocardial infarction x2 Osteoarthritis Peripheral neuropathy Previous known suicide attempt Restless leg syndrome Seasonal allergies
== END 2021-12-18 08:15 | disposition home or self-care (01) ==
PROVIDERS: Emergency Medicine; Emergency Provider Emergency Medicine; PCP Nurse Practitioner Family
DX: I49.9 Cardiac arrhythmia, unspecified (principal); Z95.0 Presence of cardiac pacemaker; D64.9 Anemia, unspecified; I50.9 Heart failure, unspecified; I11.0 Hypertensive heart disease with heart failure; I25.10 Atherosclerotic heart disease of native coronary artery without angina pectoris; E11.42 Type 2 diabetes mellitus with diabetic polyneuropathy; E78.5 Hyperlipidemia, unspecified; I25.2 Old myocardial infarction; K21.9 Gastro-esophageal reflux disease without esophagitis; M19.90 Unspecified osteoarthritis, unspecified site; G25.81 Restless legs syndrome; E55.9 Vitamin D deficiency, unspecified; Z79.82 Long term (current) use of aspirin; Z79.02 Long term (current) use of antithrombotics/antiplatelets; Z79.4 Long term (current) use of insulin; Z79.84 Long term (current) use of oral hypoglycemic drugs
CPT/HCPCS: 36415; 71046; 80053; 83690; 84484; 85025; 85610; 85730; 93005; 99284; A9270

== ENCOUNTER 2021-12-31 14:13 | Outpatient (RCR) | payer OTHER, SELFPAY ==
--- NOTE | 2021-12-18 19:06 | ED.GENADULT ---
HPI - General Adult General Source: patient Mode of arrival: ambulatory Limitations: no limitations History of Present Illness HPI narrative: Patient is 56 years old white female came to the emergency room because at 4 AM felt a jolt in the chest, subsequently felt chest pain and discomfort. Patient have pacemaker, currently she denies any fever, chills, nausea, vomiting, shortness of breath, chest pain or back pain. Related Data Home Medications Medication Instructions Recorded Confirmed aspirin [Adult Low Dose Aspirin] 81 mg PO DAILY 07/05/19 05/09/21 citalopram 20 mg PO DAILY 07/05/19 05/09/21 clopidogrel [Plavix] 75 mg PO DAILY 07/05/19 05/09/21 nitroglycerin [Nitrostat] 0.4 mg SUBLINGUAL Q5-15M PRN 07/05/19 05/09/21 pantoprazole 40 mg PO DAILY 07/05/19 05/09/21 glimepiride 4 mg PO BID 08/20/19 05/09/21 ropinirole 2 mg PO TID 08/20/19 05/09/21 magnesium oxide 400 mg PO DAILY 10/12/19 05/09/21 metoprolol tartrate 25 mg PO BID 10/12/19 05/09/21 lisinopril 2.5 mg PO DAILY 01/13/20 05/09/21 nystatin [Nystop] See Rx Instructions .ROUTE .COMPLEX 08/03/20 05/09/21 rosuvastatin 20 mg PO DAILY 08/03/20 05/09/21 cetirizine 10 mg PO DAILY 05/09/21 05/09/21 Allergies Allergy/AdvReac Type Severity Reaction Status Date / Time azithromycin Allergy Severe Gastrointestinal Verified 05/09/21 10:49 Upset Review of Systems Review of Systems: CONSTITUTIONAL: Denies fever, chills, or sweats. EYES: Denies visual changes, redness, or discharge. ENT: Denies rhinorrhea, congestion, sore throat, or otalgia. CARDIOVASCULAR: Denies chest pain, palpitations, or edema. RESPIRATORY: Denies cough or dyspnea. GASTROINTESTINAL: Denies abdominal pain, nausea, vomiting, or diarrhea. GENITOURINARY: Denies dysuria or hematuria. SKIN: Denies rash or itching. MUSCULOSKELETAL: Denies back pain, joint pain, or myalgia. NEUROLOGIC: Denies headache, numbness, or weakness. PSYCHIATRIC: Denies anxiety or depression. [facility] Past Medical History Medical History Anemia With history of blood transfusion. AV block Status post atrial pacemaker insertion. CHF (congestive heart failure) Coronary artery disease (~11/2017) Cardiac catheterization per Dr. Montalvo demonstrated distal 1st diagonal vessel total occlusion status post angioplasty and stent placement. Depression with anxiety Diabetic peripheral neuropathy Eczema Gastroesophageal reflux disease Hyperlipidemia Hypertension Insulin dependent type 2 diabetes mellitus Hemoglobin A1c was 9.8% in July 2019. Myocardial infarction x2 Osteoarthritis Peripheral neuropathy Previous known suicide attempt Restless leg syndrome Seasonal allergies Septal defect Patient on certain whether this was an ASD or VSD repair, done at the age of 39. Valvular heart disease Status post mitral valve repair. DAARSH September 18, 2019 showed moderate to severe mitral valve calcification with decreased movement and evidence of moderate mitral valve regurgitation. Vitamin D deficiency Surgical History Surgical History History of History of cardiac catheterization (~11/2017) Status post angioplasty and stent placement to distal 1st diagonal per Dr. Montalvo. History of permanent cardiac pacemaker placement x2 History of sternectomy Repaired hole in heart, patient unsure whether it was in atrial or ventricular septal defect. Family History Family History Mother Peripheral vascular disease Sibling Diabetes mellitus Social History Social History Social History: The patient currently lives in her own home with her boyfriend. She is on disability. She is a lifelong nonsmoker and denies alcohol and drug abuse. She designates her daughter, Preethi Rai, as her surrogate decision maker and she wishes to
== END 2022-02-20 11:43 | disposition home or self-care (01) ==
LOC: ANHDMC 14:13
PROVIDERS: PCP Nurse Practitioner Family; Visit Provider Nurse Practitioner Family
DX: E11.65 Type 2 diabetes mellitus with hyperglycemia (principal); Z71.89 Other specified counseling
CPT/HCPCS: 99199; G0109

== ENCOUNTER 2022-04-11 08:47 | Emergency (ER) | payer OTHER, SELFPAY ==
--- NOTE | ~2022-04-11 | CT_ITS ---
EXAMINATION: CT abdomen pelvis w con INDICATION: Constipation, nausea and vomiting TECHNIQUE: Computed tomographic images of the abdomen and pelvis were obtained after the administrati on of 100 cc of Omnipaque 350 intravenous contrast. The dose-length product (DLP) was 1151.76 mGy-cm. Automated exposure control and iterative reconstruction technique were employed. COMPARISON: 08/20/2019 FINDINGS: Stable nodules of the visualized lung bases are consistent with old granulomatous disease. Cardiomegaly is noted. The liver, spleen, pancreas, gallbladder, and adrenal glands are normal. There are areas of cortical scarring of the kidneys. No pathologically enlarged abdominal or pelvic lymph nodes are identified. There is no free intraperitoneal gas or evidence of bowel obstruction. Mild lum bar spondylosis is noted. There is a small umbilical hernia containing fat. IMPRESSION: 1. No CT correlate for the patient's symptoms. Reviewed, dictated and finalized at location A.
[2022-04-11 08:56] VITALS: BP 147/88; PULSE 97; RESP 21; TEMP 36.8; O2SAT 100
--- NOTE | 2022-04-11 09:03 | ED.ABDPAIN ---
HPI - Abdominal Pain General Chief Complaint: Abdominal Pain <Leanna Crawford PA-C - Last Filed: 04/11/22 12:53> Stated Complaint: constipation, abd pain, N/V <Leanna Crawford PA-C - Last Filed: 04/11/22 12:53> Time Seen by Provider: 04/11/22 08:54 <Leanna Crawford PA-C - Last Filed: 04/11/22 12:53> History of Present Illness HPI narrative: Patient is a 56-year-old female with a history of CAD s/p stenting, pacemaker placement, ASD s/p repair, acid reflux, uncontrolled, insulin dependent, type 2 diabetes here for evaluation of constipation, nausea and vomiting over the past 4 days. Patient states that after every p.o. trial she becomes nauseated. Notes about 3 episodes of vomiting non-bloody, non-billious emesis in total. She additionally reports constipation over the past 4 days that has been unrelieved by numerous [id number] medications, including Colace and suppositories. Today, she developed some upper abdominal pain, which prompted her ED evaluation. She denies any chest pain, fevers, shortness of breath. Hx c section, denies other abdominal surgeries. <Leanna Crawford PA-C - Last Filed: 04/11/22 12:53> Related Data Home Medications: Home Medications Medication Instructions Recorded Confirmed aspirin 81 mg tablet,delayed 81 mg PO DAILY 07/05/19 05/09/21 release (Adult Low Dose Aspirin) citalopram 20 mg tablet 20 mg PO DAILY 07/05/19 05/09/21 clopidogrel 75 mg tablet (Plavix) 75 mg PO DAILY 07/05/19 05/09/21 nitroglycerin 0.4 mg sublingual 0.4 mg sublingual Q5-15M PRN Chest 07/05/19 05/09/21 tablet (Nitrostat) Pain pantoprazole 40 mg tablet,delayed 40 mg PO DAILY 07/05/19 05/09/21 release glimepiride 4 mg tablet 4 mg PO BID 08/20/19 05/09/21 ropinirole 2 mg tablet 2 mg PO TID 08/20/19 05/09/21 magnesium oxide 400 mg PO DAILY 10/12/19 05/09/21 metoprolol tartrate 25 mg tablet 25 mg PO BID 10/12/19 05/09/21 lisinopril 2.5 mg tablet 2.5 mg PO DAILY 01/13/20 05/09/21 nystatin 100,000 unit/gram topical See Rx Instructions .Route .COMPLEX 08/03/20 05/09/21 powder (Nystop) rosuvastatin 20 mg tablet 20 mg PO DAILY 08/03/20 05/09/21 cetirizine 10 mg capsule 10 mg PO DAILY 05/09/21 05/09/21 <Leanna Crawford PA-C - Last Filed: 04/11/22 12:53> Allergies/Adverse Reactions: Allergies Allergy/AdvReac Type Severity Reaction Status Date / Time azithromycin AdvReac Severe Gastrointestinal Verified 04/11/22 09:14 Upset <NYA Buckley Last Filed: 04/11/22 12:53> Review of Systems Review of Systems: Gen: Denies fevers or chills Eyes: Denies eye pain or visual change ENT: Denies congestion Respiratory: Denies shortness of breath or cough CV: Denies chest pain or palpitations GI: Reports abdominal pain, nausea, vomiting, constipation. : denies burning, urgency, frequency or hematuria Musculoskeletal: Denies back pain or muscle pain Neuro: Denies numbness, tingling, weakness or focal weakness Skin: Denies rash Except as documented, all other systems reviewed and negative <NYA Buckley Last Filed: 04/11/22 12:53> [facility] Past Medical History Medical History: Medical History Anemia With history of blood transfusion. AV block Status post atrial pacemaker insertion. CHF (congestive heart failure) Coronary artery disease (~11/2017) Cardiac catheterization per Dr. Montalvo demonstrated distal 1st diagonal vessel total occlusion status post angioplasty and stent placement. Depression with anxiety Diabetic peripheral neuropathy Eczema Gastroesophageal reflux disease Hyperlipidemia Hypertension Insulin dependent type 2 diabetes mellitus Hemoglobin A1c was 9.8% in July 2019. Myocardial infarction x2 Osteoarthritis Peripheral neuropathy Previous known suicide attempt Restless leg syndrome Seasonal allergies Septal defect Patient on certain whe
[2022-04-11] MEDS: ONDANSETRON INJ 4 MG/2 ML VIAL IV PUSH (09:21)
[2022-04-11] MEDS: SODIUM CHLORIDE 0.9% IV 1,000 ML 999 ML IV CONT ×2 (09:21→11:05)
--- NOTE | 2022-04-11 09:23 | PC.NURSE ---
unable to provide u/a, requesting more time, given call light, fluids infusing.
[2022-04-11 09:25] LABS: Basophils Percent Auto 0.5 % (0.2-1.2); Eosinophils Absolute Auto 0.1 K/mm3 (0-0.3); Eosinophils Percent Auto 1.1 % (0-4.4); Hematocrit 40.6 % (37.0-47.0); Hemoglobin 12.6 g/dL (12.0-15.0); Immature Granulocyte Absolute 0.02 K/mm3 (0.00-0.031); Immature Granulocyte Percent A 0.3 % (0-0.5); Lymphocytes Percent Auto 14.8 % (18.3-44.2); Mean Corpuscular Hemoglobin 24.7 pg (26-34); Mean Corpuscular Volume 79.6 fl (80-100); Mean Platelet Volume 10.9 fl (7.4-10.4); Monocytes Absolute Auto 0.6 K/mm3 (0.1-0.6); Monocytes Percent Auto 8.2 % (2.6-8.5); Neutrophils Absolute Auto 5.6 K/mm3 (1.3-6.7); Neutrophils Percent Auto 75.1 % (45.5-73.1); Platelet Count Result 255 k/mm3 (150-375); Red Cell Distribution Width 15.9 % (11.5-14.5); White Blood Count 7.4 K/mm3 (4.5-10.0)
[2022-04-11] MEDS: MORPHINE SULFATE (*CRX) 4 MG/ML INJ IV PUSH (09:35)
[2022-04-11 09:36] VITALS: BP 118/65; PULSE 83; RESP 18; O2SAT 96
[2022-04-11 09:36] LABS: Lactic Acid Reflex 2.2 mmol/L (0.7-2.0)
[2022-04-11 09:37] LABS: Alanine Aminotransferase 24 U/L (6-35); Albumin Level 4.5 g/dL (3.5-5.1); Alkaline Phosphatase 125 U/L (38-126); Anion Gap 13 mmol/L (8-16); Aspartate Amino Transferase 27 U/L (14-36); Bilirubin,Total 0.6 mg/dL (0.2-1.3); Blood Urea Nitrogen 24 mg/dL (7-17); Calcium 8.7 mg/dL (8.4-10.2); Carbon Dioxide 22 mmol/L (22-30); Chloride 99 mmol/L (98-107); Estimated CRCL calculation 54 ml/min; Estimated Glomerular Filt Rate 57; Glucose 321 mg/dL (65-110); Lipase 87 U/L (23-300); Potassium 4.5 mmol/L (3.4-5.0); Sodium 134 mmol/L (137-145)
--- NOTE | 2022-04-11 10:11 | PC.NURSE ---
pt attempting to provide urine sample at this time
[2022-04-11 10:20] LABS: Appearance Urine Clear (Clear); Bilirubin Urine Negative (Negative); Blood Urine Negative (Negative); Color Urine Yellow (Yellow); Glucose Urine UA 1+ mg/dL (Negative); Ketones Urine Negative (Negative); Leukocyte Esterase Ur Negative LEU/UL (Negative); Nitrate Urine Negative (Negative); Protein Urine Negative (Negative); Specific Grav Ur <= 1.005 (1.001-1.035); Urobilinogen Urine 0.2 mg/dL (<2.0); pH Urine 5.5 (5.0-9.0)
[2022-04-11 10:23] VITALS: BP 100/54; PULSE 88; TEMP 36.3; O2SAT 96
[2022-04-11 10:31] LABS: Bacteria Urine Trace /hpf; RBC Urine 0-2 /hpf (0-2); Squamous Epithelial Cell Urine Rare /hpf (Few); WBC Urine 0-3 /hpf
[2022-04-11 10:33] LABS: Add Urine Microscopic? YES
[2022-04-11 11:06] VITALS: BP 120/67; PULSE 82; RESP 18; O2SAT 97
[2022-04-11 12:23] LABS: Reflex Lactic Acid Yes or No Add Lactic
[2022-04-11 12:41] LABS: Lactic Acid Reflex 0.9 mmol/L (0.7-2.0)
[2022-04-11 13:00] VITALS: BP 112/67; PULSE 84; RESP 16; O2SAT 98
== END 2022-04-11 13:01 | disposition home or self-care (01) ==
PROVIDERS: Physician Assistant; Emergency Provider Preventive Medicine Aerospace Medicine; PCP Nurse Practitioner Family
DX: K59.00 Constipation, unspecified (principal); I25.10 Atherosclerotic heart disease of native coronary artery without angina pectoris; E11.42 Type 2 diabetes mellitus with diabetic polyneuropathy; I10 Essential (primary) hypertension; I25.2 Old myocardial infarction; I38 Endocarditis, valve unspecified; E55.9 Vitamin D deficiency, unspecified; M19.90 Unspecified osteoarthritis, unspecified site; G25.81 Restless legs syndrome; K21.9 Gastro-esophageal reflux disease without esophagitis; Z95.0 Presence of cardiac pacemaker; Z95.5 Presence of coronary angioplasty implant and graft; Z86.2 Personal history of diseases of the blood and blood-forming organs and certain disorders involving the immune mechanism; Z79.82 Long term (current) use of aspirin; Z79.84 Long term (current) use of oral hypoglycemic drugs
CPT/HCPCS: 36415; 74177; 80053; 81001; 83605; 83690; 85025; 96361; 96374; 96375; 99284; J2270; J2405; J7030; Q9967

== ENCOUNTER 2022-07-07 20:03 | Inpatient (IN) | payer OTHER, SELFPAY ==
[2022-07-07] VITALS (11 sets, daily range): BP systolic 109–163; BP diastolic 51–85; PULSE 92–109; RESP 16–24; O2SAT 97–100
--- NOTE | ~2022-07-07 | XR_ITS ---
EXAMINATION: XR chest 1V portable Exam Date/Time: 07/07/2022 20:22 NURSE [facility] HISTORY: chest pain; hx of CHF, HTN, CT x 2, type 2 DM Comparison: 12/18/2021. RESULT: Lines, tubes, and devices: Intact sternotomy wires. Partially visualized pacing/AICD device, leads n ot visualized due to technique. Lungs and pleura: Clear. Cardiomediastinal silhouette: Stable cardiomegaly. Other: No acute osseous or upper abdominal finding. IMPRESSION: No acute cardiopulmonary process. Reviewed, dictated and finalized at location [facility]
--- NOTE | 2022-07-07 20:04 | ECG_ITS ---
Measurements Intervals [place] Rate: 98 P: -75 [place]: 156 QRS: -57 QRSD: 183 T: 106 QT: 423 QTc: 542 Interpretive Statements ELECTRONIC ATRIAL PACEMAKER WITH INHIBITION ELECTRONIC VENTRICULAR PACEMAKER NO FURTHER INTERPRETATION IS POSSIBLE ATYPICAL ECG COMPARED TO ECG 12/18/2021 06:28:45 NO SIGNIFICANT CHANGES Electronically Signed On 07-08-2022 6:38:05 [employer] CLAIM EXAMINER by Armando Goff D.O.
[2022-07-07 20:21] LABS: Glucose Point of Care 467 mg/dl (65-105)
[2022-07-07] MEDS: NITROGLYCERIN SL 0.4 MG TABLET SUBLINGUAL (20:49)
[2022-07-07 20:51] LABS: Basophils Percent Auto 0.5 % (0.2-1.2); Eosinophils Absolute Auto 0.1 K/mm3 (0-0.3); Eosinophils Percent Auto 1.1 % (0-4.4); Hematocrit 40.7 % (37.0-47.0); Hemoglobin 13.3 g/dL (12.0-15.0); Immature Granulocyte Absolute 0.02 K/mm3 (0.00-0.031); Immature Granulocyte Percent A 0.3 % (0-0.5); Lymphocytes Absolute Auto 0.94 K/mm3 (0.9-3.2); Lymphocytes Percent Auto 14.3 % (18.3-44.2); Mean Corpuscular HGB Conc 32.7 g/dl (32-36); Mean Corpuscular Hemoglobin 26.8 pg (26-34); Mean Corpuscular Volume 81.9 fl (80-100); Mean Platelet Volume 10.8 fl (7.4-10.4); Monocytes Absolute Auto 0.6 K/mm3 (0.1-0.6); Monocytes Percent Auto 9.3 % (2.6-8.5); Neutrophils Absolute Auto 4.9 K/mm3 (1.3-6.7); Neutrophils Percent Auto 74.5 % (45.5-73.1); Platelet Count Result 235 k/mm3 (150-375); Red Blood Count 4.97 M/mm3 (4.2-5.4); Red Cell Distribution Width 14.4 % (11.5-14.5); White Blood Count 6.6 K/mm3 (4.5-10.0)
[2022-07-07 21:01] LABS: Alanine Aminotransferase 21 U/L (6-35); Albumin Level 4.2 g/dL (3.5-5.1); Alkaline Phosphatase 146 U/L (38-126); Anion Gap 14 mmol/L (8-16); Aspartate Amino Transferase 22 U/L (14-36); Bilirubin,Total 0.5 mg/dL (0.2-1.3); Blood Urea Nitrogen 23 mg/dL (7-17); Calcium 8.7 mg/dL (8.4-10.2); Carbon Dioxide 25 mmol/L (22-30); Chloride 94 mmol/L (98-107); Estimated Glomerular Filt Rate 57; Glucose 481 mg/dL (65-110); Lipase 102 U/L (23-300); Potassium 4.5 mmol/L (3.4-5.0); Sodium 133 mmol/L (137-145)
[2022-07-07 21:12] LABS: Troponin I < 0.012 ng/mL (0.000-0.034)
[2022-07-07 22:01] LABS: Partial Thromboplastin Time 26.3 SECONDS (22.3-36.8)
[2022-07-07 22:03] LABS: INR 1.2; Prothrombin Time 14.5 Seconds (11.1-14.7)
--- NOTE | 2022-07-07 22:09 | ED.CHESTPAIN ---
HPI - Chest Pain General Chief Complaint: Chest Pain Stated Complaint: chest pain, hyperglycemia Time Seen by Provider: 07/07/22 20:11 History of Present Illness HPI narrative: Patient is a 56-year-old female who presents ER with chest pain. Sudden onset 1 hour prior to arrival. Pressure radiating to her arm making her arm go numb. Associate with some shortness of breath. No fevers chills or sweats. No alleviating factors. Reports history of PR in the past. She does have stents. Patient with recent admission 2 months ago for non-ST elevation PR. Related Data Home Medications Medication Instructions Recorded Confirmed aspirin 81 mg tablet,delayed 81 mg PO DAILY 07/05/19 07/08/22 release (Adult Low Dose Aspirin) citalopram 20 mg tablet 20 mg PO DAILY 07/05/19 07/08/22 clopidogrel 75 mg tablet (Plavix) 75 mg PO DAILY 07/05/19 07/08/22 nitroglycerin 0.4 mg sublingual 0.4 mg sublingual Q5-15M PRN Chest 07/05/19 07/08/22 tablet (Nitrostat) Pain pantoprazole 40 mg tablet,delayed 40 mg PO DAILY 07/05/19 07/08/22 release glimepiride 4 mg tablet 4 mg PO BID 08/20/19 07/08/22 ropinirole 2 mg tablet 2 mg PO TID 08/20/19 07/08/22 metoprolol tartrate 25 mg tablet 25 mg PO BID 10/12/19 07/08/22 lisinopril 2.5 mg tablet 2.5 mg PO DAILY 01/13/20 07/08/22 rosuvastatin 20 mg tablet 20 mg PO DAILY 08/03/20 07/08/22 insulin glargine 100 unit/mL (3 45 unit subcut HS 07/08/22 07/08/22 mL) subcutaneous pen (Basaglar KwikPen U-100 Insulin) sitagliptin phosphate 100 mg 100 mg PO DAILY 07/08/22 07/08/22 tablet (Januvia) Allergies Allergy/AdvReac Type Severity Reaction Status Date / Time azithromycin AdvReac Severe Gastrointestinal Verified 07/07/22 20:17 Upset Review of Systems Review of Systems: All systems reviewed & are unremarkable except as noted in HPI and below Constitutional: Constitutional: Denies chills, Denies fatigue and Denies fever(s) ENT: Denies nasal congestion and Denies sore throat Cardiovascular: Cardiovascular: Reports chest pain, Denies rapid heart rate and Reports radiating jaw, neck or arm pain Respiratory: Respiratory: Denies cough, Denies dyspnea and Denies wheezing Gastrointestinal: Gastrointestinal: Denies abdominal pain, Denies nausea and Denies vomiting Neurologic: Denies headache(s), Denies focal weakness and Denies numbness PMF Past Medical History Medical History (Updated 07/08/22 @ 07:07 by Mat Alvarado MD) Anemia With history of blood transfusion. AV block Status post atrial pacemaker insertion. CHF (congestive heart failure) Coronary artery disease (~11/2017) Cardiac catheterization per Dr. Montalvo demonstrated distal 1st diagonal vessel total occlusion status post angioplasty and stent placement. Depression with anxiety Diabetic peripheral neuropathy Eczema Gastroesophageal reflux disease Hyperlipidemia Hypertension Insulin dependent type 2 diabetes mellitus Hemoglobin A1c was 9.8% in July 2019. Myocardial infarction x2 Osteoarthritis Peripheral neuropathy Previous known suicide attempt Restless leg syndrome Seasonal allergies Septal defect Patient on certain whether this was an ASD or VSD repair, done at the age of 39. Valvular heart disease Status post mitral valve repair. ADARSH September 18, 2019 showed moderate to severe mitral valve calcification with decreased movement and evidence of moderate mitral valve regurgitation. Vitamin D deficiency Surgical History Surgical History History of History of cardiac catheterization (~11/2017) Status post angioplasty and stent placement to distal 1st diagonal per Dr. Montalvo. History of permanent cardiac pacemaker placement x2 History of sternectomy Repaired hole in heart, patient unsure whether it was in atrial or ventricular septal defect. Family History Family History Mother Cassidy
[2022-07-07] MEDS: INSULIN HUMAN REGULAR (*BKC) 100 UNITS/ML 10 UNITS IV PUSH (22:21)
--- NOTE | 2022-07-07 22:36 | PM.IMHP ---
H&P: HPI History of Present Illness Date/Time: 07/07/22 22:36 Chief Complaint: chest pain Narrative: This is a 56-year-old female with past medical history significant for coronary artery disease, pacemaker implanted, insulin-dependent diabetes mellitus, GERD, dyslipidemia, congestive heart failure, depression anxiety, diabetic peripheral neuropathy, restless leg syndrome. patient presents to the emergency room with complaints of chest pain with radiation to her left shoulder and jaw as well as her arm this has been going on for the last couple of hours she has been her usual state of health prior to these although does state that she has been having a lot of nasal drainage and cough, patient denies any nausea, vomiting, dizziness, palpitations, lightheadedness, syncope or near syncope,, no chills no fevers no rigors, no sputum production, no leg swelling, no PND, no orthopnea. preliminary workup was significant for blood glucose of 489, a chest x-ray was reported as: IMPRESSION: No acute cardiopulmonary process. troponins x2 0.012 Review of Systems Review of Systems: retrosternal chest pain with radiation to the shoulder and Constitutional: Constitutional: Denies chills, Denies fatigue, Denies fever(s), Denies malaise and Denies weakness Eyes: Eyes: Denies change in vision ENT: Denies dysphagia, Denies vertigo, Denies dizziness and Denies odynophagia Cardiovascular: Cardiovascular: Reports chest pain, Reports chest pain at rest, Denies pedal edema, Denies leg edema, Denies lightheadedness, Reports radiating jaw, neck or arm pain, Denies palpitations and Denies dyspnea Respiratory: Respiratory: Denies chest congestion, Reports cough, Denies excessive phlegm production and Denies pain on inspiration Gastrointestinal: Gastrointestinal: Denies abdominal pain, Denies dyspepsia, Denies heartburn, Denies diarrhea, Denies nausea and Denies vomiting Genitourinary: Genitourinary: Reports no additional female genitourinary complaints and Reports as per HPI Musculoskeletal: Musculoskeletal: Denies back pain, Denies myalgias and Reports muscle cramps Integumentary/Breasts: Skin/Breast: Denies rash Neurologic: Denies vertigo, Denies dizziness, Denies focal weakness and Denies Sensory deficit (Neuro) Psychiatric: Psychiatric: Reports no additional psychiatric complaints and Reports as per HPI Endocrine: Endocrine: Denies cold intolerance, Denies flushing, Denies heat intolerance, Denies polyphagia, Denies polydipsia and Denies palpitations Hematologic/Lymphatic: Hematologic/Lymphatic: Reports no additional hematologic/lymphatic complaints and Reports as per HPI Allergic/Immunologic: Allergic/Immunologic: Reports no additional allergic/immunologic complaints and Reports as per HPI PMFSH Past Medical History Medical History (Updated 07/08/22 @ 02:27 by Mario Chapman MD) Anemia With history of blood transfusion. AV block Status post atrial pacemaker insertion. CHF (congestive heart failure) Coronary artery disease (~11/2017) Cardiac catheterization per Dr. Montalvo demonstrated distal 1st diagonal vessel total occlusion status post angioplasty and stent placement. Depression with anxiety Diabetic peripheral neuropathy Eczema Gastroesophageal reflux disease Hyperlipidemia Hypertension Insulin dependent type 2 diabetes mellitus Hemoglobin A1c was 9.8% in July 2019. Myocardial infarction x2 Osteoarthritis Peripheral neuropathy Previous known suicide attempt Restless leg syndrome Seasonal allergies Septal defect Patient on certain whether this was an ASD or VSD repair, done at the age of 39. Valvular heart disease Status post mitral valve repair. ADARSH September 18, 2019 showed moderate to severe mitral valve calcification with decreased movement and evidence of moderate mitral valve regurgitation. Vitamin D deficiency Surgical History Surgical History History
[2022-07-07 23:57] LABS: SARS-CoV-2 RNA PCR Negative
[2022-07-08] VITALS (15 sets, daily range): BP systolic 87–134; BP diastolic 54–80; PULSE 71–97; RESP 16–24; TEMP 36.1–36.7; O2SAT 91–100; BMI 34.8
--- NOTE | 2022-07-08 | ECHO_ITS ---
Patient Info Name: Marlys Rodriguez Tularosa Age: 56 years : 1965 Gender: Female Ht: 60 in Wt: 176 lbs BSA: 1.88 m2 HR: 72 bpm BP: 97 / 56 mmHg Heart Rhythm: Paced Exam Date: 07/08/2022 2:11 PM Exam Location: [facility] Patient Status: Outpatient Admit Date: 07/07/2022 Staff Ordering Physician: Colton Matias MD Security Patrol Officer: Ady Santos, KAMRYN, RT Attending Provider: Mario Chapman MD Referring Physician: Polly LACEY; Exam Type: CA echo dop color flow w con Study Info Indications - ACS I50.9 - Heart failure, unspecified Complete two-dimensional, color flow and Doppler transthoracic echocardiogram is performed with contrast to opacify the left ventricle and to improve the deliniation of the left ventricle endocardial borders. Summary 1. Left ventricular systolic function is normal, estimated at 50-55%. 2. There is moderately increased left ventricular wall thickness. 3. Left ventricular septal wall motion is abnormal with septal motion related to pacing. 4. The left ventricular diastolic function is grade I diastolic dysfunction. 5. Right ventricular systolic function is normal. 6. The mitral valve has thickened leaflets. 7. There is moderate to severe mitral valve regurgitation. 8. There is mild tricuspid valve regurgitation. Left Ventricle Left ventricular chamber dimension is normal. Left ventricular systolic function is normal, estimated at 50-55%. There is moderately increased left ventricular wall thickness. Left ventricular septal wall motion is abnormal with septal motion related to pacing. The left ventricular diastolic function is grade I diastolic dysfunction. Right Ventricle Right ventricular chamber dimension is normal. Right ventricular systolic function is normal. Left Atria Left atrial chamber dimension is normal. Right Atria Right atrial chamber dimension is normal. Aortic Valve The aortic valve is not well visualized. There is no aortic valve stenosis. There is no aortic valve regurgitation. Pulmonic Valve The pulmonic valve is not well visualized. Mitral Valve The mitral valve has thickened leaflets. There is no mitral valve stenosis. There is moderate to severe mitral valve regurgitation. Tricuspid Valve The tricuspid valve leaflets are not well visualized. There is mild tricuspid valve regurgitation. Pericardium/Pleural There is no pericardial effusion. Aorta The aortic root size at the sinus of Valsalva is normal. Left Ventricular Outflow Tract Name Value Normal LVOT 2D LVOT Diameter 1.98 cm LVOT Doppler LVOT Peak Gradient 8 mmHg LVOT Mean Gradient 5 mmHg LVOT VTI 29.82 cm LVOT VTI/AV VTI Ratio 0.88 LVOT Stroke Volume 92.14 ml LVOT CO 6.61 l/min LVOT CI 3.52 L/min/m2 Mitral Valve Name Value Normal
--- NOTE | 2022-07-08 00:31 | ADMGEN ---
This patient, Marlys Rai, was admitted to IMU Room 205-02. Patient/family oriented to hospital policies and general routines including ID bracelet, bed and alarms, visiting hours, pain management, procedures, bathroom and other care routines, personal items, smoking policy, room service/diet, and visiting hours. Information on how to activate the Rapid Response Team has been discussed. Patient/Family are encouraged to report perceived risks to care and to ask questions if they do not understand what they are told or what they should do.
[2022-07-08 00:41] LABS: Glucose Point of Care 188 mg/dl (65-105)
[2022-07-08 03:41] LABS: Troponin I 0.144 ng/mL (0.000-0.034)
[2022-07-08 07:47] LABS: Glucose Point of Care 225 mg/dl (65-105)
[2022-07-08] MEDS: ASPIRIN 81 MG ENTERIC TABLET PO (08:35)
[2022-07-08] MEDS: ROSUVASTATIN 10 MG TABLET 20 MG PO (08:35)
[2022-07-08] MEDS: CLOPIDOGREL BISULFATE 75 MG TABLET PO (08:35)
[2022-07-08] MEDS: rOPINIRole HCL 1 MG TABLET 2 MG PO ×3 (08:35→16:30)
[2022-07-08] MEDS: PANTOPRAZOLE 40 MG TABLET PO (08:35)
[2022-07-08] MEDS: CITALOPRAM HYDROBROMIDE 20 MG TABLET PO (08:36)
[2022-07-08] MEDS: lisinopriL 2.5 MG TABLET PO (08:36)
[2022-07-08] MEDS: METOPROLOL TARTRATE 25 MG TABLET PO ×2 (08:36→21:08)
--- NOTE | 2022-07-08 09:05 | PM.IMPN ---
Progress Note: A&P Assessment and Plan (1) Chest pain: Qualifiers: Chest pain type: unspecified Qualified Code(s): R07.9 - Chest pain, unspecified Code(s): R07.9 - Chest pain, unspecified Status: Acute Assessment and Plan: NSTEMI, NPO, heart catheterization tomorrow, appreciate cardiology consultation (2) AV block: Code(s): I44.30 - Unspecified atrioventricular block Status: Acute Assessment and Plan: status post pacemaker placement (3) Pulmonary hypertension: Code(s): I27.20 - Pulmonary hypertension, unspecified Status: Acute Assessment and Plan: stable (4) Coronary artery disease: Onset Date: ~11/2017 Qualifiers: Associated angina: without angina Coronary Disease-Associated Artery/Lesion type: [place] artery [place] vs. 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 Status: Acute Assessment and Plan: continue home meds holding glipizide (6) Chronic kidney disease, stage 3: Code(s): N18.3 - Chronic kidney disease, stage 3 (moderate) Status: Chronic Assessment and Plan: stable (7) Morbid obesity: Code(s): E66.01 - Morbid (severe) obesity due to excess calories Status: Chronic Assessment and Plan: defer to outpatient management (8) GERD (gastroesophageal reflux disease): Qualifiers: Esophagitis presence: esophagitis presence not specified Qualified Code(s): K21.9 - Gastro-esophageal reflux disease without esophagitis Code(s): K21.9 - Gastro-esophageal reflux disease without esophagitis Status: Chronic Assessment and Plan: continue PPI (9) HTN (hypertension): Qualifiers: Hypertension type: essential hypertension Qualified Code(s): I10 - Essential (primary) hypertension Code(s): I10 - Essential (primary) hypertension Status: Chronic Assessment and Plan: continue home meds Plan DVT prophylaxis with Lovenox GI prophylaxis not indicated Code status full code Subjective Date/time seen: 07/08/22 09:05 Interval history: No overnight events noted. No chest pain or shortness of breath. No nausea, vomiting or diarrhea. No fevers or chills. Review of Systems Review of Systems: 12 point review of systems was assessed and was negative except as noted in the HPI Exam Narrative: General: No acute distress, alert and oriented per baseline HEENT: Atraumatic, normocephalic, mucous membranes moist CV: Regular rate and rhythm, S1, S2 Lungs: Clear to auscultation bilaterally, no rales or crackles noted, no wheezes, good air entry Abdomen: Soft, nontender, nondistended Extremities: Normal to inspection Skin: No rashes noted, no lesions or wounds seen Psych: Euthymic, normal affect Objective Data Vital Signs Vital Signs: Vital Signs - 24 hr 07/07/22 20:13 07/07/22 20:30 07/07/22 20:45 Temperature Pulse Rate 97 97 92 Respiratory Rate 19 20 17 Blood Pressure 163/85 H Pulse Oximetry 99 Oxygen Delivery Room Air 07/07/22 21:00 07/07/22 21:15 07/07/22 21:30 Temperature Pulse Rate 105 H 96 108 H Respiratory Rate 19 20 22 H Blood Pressure 120/60 Pulse Oximetry Oxygen Delivery 07/07/22 21:33 07/07/22 23:23 07/07/22 23:24 Temperature Pulse Rate 98 109 H Respiratory Rate 24 H 16 Blood Pressure 120/60 112/60 112/60 Pulse Oximetry 100 100 Oxygen Delivery 07/07/22 23:31 07/07/22 23:46 07/08/22 00:01 Temperature Pulse
[2022-07-08] MEDS: ONDANSETRON INJ 4 MG/2 ML VIAL IV PUSH (09:40)
--- NOTE | 2022-07-08 11:46 | PM.CNCAR ---
Assessment and Plan Assessment and plan (1) Chest pain: Code(s): R07.9 - Chest pain, unspecified Status: Acute Assessment and Plan: She has chest pain related to a non ST-elevation myocardial infarction. (2) NSTEMI (non-ST elevated myocardial infarction): Code(s): I21.4 - Non-ST elevation (NSTEMI) myocardial infarction Status: Acute Assessment and Plan: Troponins have turned positive. She has known CAD and her chest pain is a consequence of a non ST-elevation myocardial infarction. Will repeat a troponin now. 2D echocardiogram Doppler is ordered and will be reviewed. Will give her 1 milligram/kilogram of subcutaneous enoxaparin x1 now. Continue her metoprolol, lisinopril, statin, aspirin and clopidogrel. I talked to her about the possibility of medical management versus medical management plus/-non exercise stress test versus invasive workup for definitive coronary evaluation. I think it is reasonable to pursue definitive workup as she does also and will therefore keep her NPO after midnight for cardiac catheterization tomorrow. P.r.n. nitroglycerin 0.4 mg sublingual p.r.n. chest pain and obviously if she becomes unstable, we will pursue angiogram today. I did offer angiogram today but she wishes to hold off till tomorrow (3) Pulmonary hypertension: Code(s): I27.20 - Pulmonary hypertension, unspecified Status: Acute (4) Pacemaker: Code(s): Z95.0 - Presence of cardiac pacemaker Status: Acute Assessment and Plan: Appears to be function normally (5) Coronary artery disease: Onset Date: ~11/2017 Qualifiers: Coronary Disease-Associated Artery/Lesion type: [place] artery [place] vs. transplanted heart: [place] heart Associated angina: without angina Qualified Code(s): I25.10 - Atherosclerotic heart disease of [place] coronary artery without angina pectoris Code(s): I25.10 - Atherosclerotic heart disease of [place] coronary artery without angina pectoris Status: Acute Assessment and Plan: Cardiac catheterization 2020 in the setting of an ACS showed chronic total occlusion of the diagonal branch of the LAD in its midportion. Moderate 70% stenosis of the of a small left PDA. Non disease non dominant RCA. She did have 3+ mitral regurgitation also posterior basal akinesia. (6) Hypertension associated with diabetes: Code(s): E11.59 - Type 2 diabetes mellitus with other circulatory complications; I15.2 - Hypertension secondary to endocrine disorders Status: Acute Assessment and Plan: Resume home medication and I will increase her lisinopril to 5 mg daily (7) Hyperlipidemia associated with type 2 diabetes mellitus: Code(s): E11.69 - Type 2 diabetes mellitus with other specified complication; E78.5 - Hyperlipidemia, unspecified Status: Acute Assessment and Plan: Continue statin (8) Nonrheumatic mitral valve regurgitation: Code(s): I34.0 - Nonrheumatic mitral (valve) insufficiency Status: Acute Assessment and Plan: Will repeat an echo History of Present Illness History of Present Illness Consult date/time: 07/08/22 11:46 Requesting physician: Mario Chapman MD Consult reason: chest pain Reason For Visit: Chest Pain Narrative: Date of service 07/08/2022 Requesting provider: Dr. Chapman Reason consultation: Chest pain History patient is a 56-year-old female who came to hospital because of chest pain. She has known CAD, pacemaker, diabetes, CHF, neuropathy, GERD who developed acute onset anterior chest pain with radiation down her left arm yesterday at 7:00 p.m.. Symptoms persisted for couple of hours. She came to the hospital for further workup evaluation. Initial troponin was negative the 2nd troponin has turned slightly positive. She did have shortness of breath during the episode of chest pain. She does have some intermittent lower extremity dependent edema and
[2022-07-08 12:03] LABS: Glucose Point of Care 392 mg/dl (65-105)
[2022-07-08 12:47] LABS: Troponin I 0.059 ng/mL (0.000-0.034)
[2022-07-08] MEDS: INSULIN ASPART (*BKC) 100 UNITS/ML SUB-Q ×2 (13:01→16:30)
[2022-07-08] MEDS: ENOXAPARIN 80 MG/0.8 ML SYRINGE SUB-Q (13:01)
[2022-07-08] MEDS: PERFLUTREN LIPID MICROSPHERES 1.5 ML VIAL DILUTED TO 10 ML TOTAL VOLUME IV PUSH (14:25)
--- NOTE | 2022-07-08 14:26 | IVDEFINITY ---
Prior to administration of IV Definity the patient was educated on the risks and benefits of the imaging enhancing agent including potential adverse side effects. The patient verbalized understanding. Allergies were verified. No exclusion criteria were identified and at least one of the following inclusion criteria were met: 1) physician request, 2) patient technically difficult to image (per the [place] [employer]chocardi[employer] guidelines of two or more segments not discernable within the apical view), or 3) questionable left ventricular function. ?
[2022-07-08 15:06] LABS: Basophils Percent Auto 0.3 % (0.2-1.2); Eosinophils Percent Auto 0.2 % (0-4.4); Hematocrit 42.2 % (37.0-47.0); Hemoglobin 13.5 g/dL (12.0-15.0); Immature Granulocyte Absolute 0.03 K/mm3 (0.00-0.031); Immature Granulocyte Percent A 0.3 % (0-0.5); Lymphocytes Absolute Auto 0.56 K/mm3 (0.9-3.2); Lymphocytes Percent Auto 6.1 % (18.3-44.2); Mean Corpuscular Hemoglobin 26.6 pg (26-34); Mean Corpuscular Volume 83.2 fl (80-100); Monocytes Absolute Auto 0.4 K/mm3 (0.1-0.6); Monocytes Percent Auto 4.7 % (2.6-8.5); Neutrophils Percent Auto 88.4 % (45.5-73.1); Platelet Count Result 258 k/mm3 (150-375); Red Blood Count 5.07 M/mm3 (4.2-5.4); Red Cell Distribution Width 14.5 % (11.5-14.5); White Blood Count 9.1 K/mm3 (4.5-10.0)
[2022-07-08 15:17] LABS: Alanine Aminotransferase 23 U/L (6-35); Alkaline Phosphatase 120 U/L (38-126); Anion Gap 10 mmol/L (8-16); Aspartate Amino Transferase 27 U/L (14-36); Blood Urea Nitrogen 23 mg/dL (7-17); Calcium 8.6 mg/dL (8.4-10.2); Carbon Dioxide 23 mmol/L (22-30); Chloride 100 mmol/L (98-107); Estimated CRCL calculation 51 ml/min; Estimated Glomerular Filt Rate 57; Glucose 367 mg/dL (65-110); Potassium 5.4 mmol/L (3.4-5.0); Sodium 133 mmol/L (137-145)
[2022-07-08 16:23] LABS: Glucose Point of Care 357 mg/dl (65-105)
[2022-07-08] MEDS: INSULIN GLARGINE (*BKC) 100 UNITS/ML 45 UNITS SUB-Q (21:08)
[2022-07-08 23:49] LABS: Glucose Point of Care 305 mg/dl (65-105)
[2022-07-09] VITALS (17 sets, daily range): BP systolic 97–123; BP diastolic 51–73; PULSE 69–80; RESP 16–24; TEMP 36.5–36.8; O2SAT 89–99
[2022-07-09 05:06] LABS: Basophils Percent Auto 0.4 % (0.2-1.2); Eosinophils Percent Auto 0.3 % (0-4.4); Hematocrit 42.6 % (37.0-47.0); Hemoglobin 13.2 g/dL (12.0-15.0); Immature Granulocyte Absolute 0.02 K/mm3 (0.00-0.031); Immature Granulocyte Percent A 0.3 % (0-0.5); Lymphocytes Percent Auto 13.1 % (18.3-44.2); Mean Corpuscular Hemoglobin 26.3 pg (26-34); Mean Platelet Volume 11.3 fl (7.4-10.4); Monocytes Absolute Auto 0.7 K/mm3 (0.1-0.6); Monocytes Percent Auto 9.3 % (2.6-8.5); Neutrophils Absolute Auto 5.8 K/mm3 (1.3-6.7); Neutrophils Percent Auto 76.6 % (45.5-73.1); Platelet Count Result 249 k/mm3 (150-375); Red Blood Count 5.01 M/mm3 (4.2-5.4); Red Cell Distribution Width 14.6 % (11.5-14.5); White Blood Count 7.6 K/mm3 (4.5-10.0)
[2022-07-09 05:21] LABS: Alanine Aminotransferase 21 U/L (6-35); Alkaline Phosphatase 95 U/L (38-126); Anion Gap 13 mmol/L (8-16); Aspartate Amino Transferase 35 U/L (14-36); Bilirubin,Total 1.1 mg/dL (0.2-1.3); Blood Urea Nitrogen 29 mg/dL (7-17); Calcium 8.6 mg/dL (8.4-10.2); Carbon Dioxide 23 mmol/L (22-30); Chloride 99 mmol/L (98-107); Estimated CRCL calculation 43 ml/min; Estimated Glomerular Filt Rate 46; Glucose 275 mg/dL (65-110); Potassium 4.9 mmol/L (3.4-5.0); Sodium 135 mmol/L (137-145)
[2022-07-09 05:52] LABS: Hemoglobin A1C 12.9 % (<5.7)
[2022-07-09 07:45] LABS: Glucose Point of Care 267 mg/dl (65-105)
--- NOTE | 2022-07-09 07:52 | PM.IMPN ---
Progress Note: A&P Assessment and Plan (1) Chest pain: Qualifiers: Chest pain type: unspecified Qualified Code(s): R07.9 - Chest pain, unspecified Code(s): R07.9 - Chest pain, unspecified Status: Acute Assessment and Plan: NSTEMI, NPO, heart catheterization today, appreciate cardiology consultation (2) AV block: Code(s): I44.30 - Unspecified atrioventricular block Status: Acute Assessment and Plan: status post pacemaker placement (3) Pulmonary hypertension: Code(s): I27.20 - Pulmonary hypertension, unspecified Status: Acute Assessment and Plan: stable (4) Coronary artery disease: Onset Date: ~11/2017 Qualifiers: Associated angina: without angina Coronary Disease-Associated Artery/Lesion type: [place] artery [place] vs. 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 Status: Acute Assessment and Plan: continue home meds holding glipizide (6) Chronic kidney disease, stage 3: Code(s): N18.3 - Chronic kidney disease, stage 3 (moderate) Status: Chronic Assessment and Plan: stable (7) Morbid obesity: Code(s): E66.01 - Morbid (severe) obesity due to excess calories Status: Chronic Assessment and Plan: defer to outpatient management (8) GERD (gastroesophageal reflux disease): Qualifiers: Esophagitis presence: esophagitis presence not specified Qualified Code(s): K21.9 - Gastro-esophageal reflux disease without esophagitis Code(s): K21.9 - Gastro-esophageal reflux disease without esophagitis Status: Chronic Assessment and Plan: continue PPI (9) HTN (hypertension): Qualifiers: Hypertension type: essential hypertension Qualified Code(s): I10 - Essential (primary) hypertension Code(s): I10 - Essential (primary) hypertension Status: Chronic Assessment and Plan: continue home meds Plan DVT prophylaxis with Lovenox GI prophylaxis not indicated Code status full code Subjective Date/time seen: 07/09/22 07:52 Interval history: No overnight events noted. No chest pain or shortness of breath. No nausea, vomiting or diarrhea. No fevers or chills. Review of Systems Review of Systems: 12 point review of systems was assessed and was negative except as noted in the HPI Exam Narrative: General: No acute distress, alert and oriented per baseline HEENT: Atraumatic, normocephalic, mucous membranes moist CV: Regular rate and rhythm, S1, S2 Lungs: Clear to auscultation bilaterally, no rales or crackles noted, no wheezes, good air entry Abdomen: Soft, nontender, nondistended Extremities: Normal to inspection Skin: No rashes noted, no lesions or wounds seen Psych: Euthymic, normal affect Objective Data Vital Signs Vital Signs: Vital Signs - 24 hr 07/08/22 08:00 07/08/22 08:00 07/08/22 10:00 Temperature 97.2 F L Pulse Rate 90 91 75 Respiratory Rate 16 Blood Pressure 129/80 Pulse Oximetry 98 Oxygen Delivery 07/08/22 08:00 07/08/22 12:00 07/08/22 12:00 Temperature 97.0 F L Pulse Rate 73 Respiratory Rate 20 Blood Pressure 87/56 L Pulse Oximetry 91 Oxygen Delivery Room Air Room Air 07/08/22 12:00 07/08/22 14:00 07/08/22 16:00 Temperature 97.0 F L Pulse Rate 73 72 71 Respiratory Rate 24 H Blood Pressure 90/54 L Pulse Oximetry 91 Oxygen Delivery 07/08/22 16:00 07/08/22 16:00 07/08/22 18:00 Temperature Pulse Rate 72 7
--- NOTE | 2022-07-09 09:19 | WPDMODSED ---
Moderate Sedation Note-Pt Data Patient Data Diagnosis: NSTEMI Present Complaint: Chest pain Procedure to be performed/Plan: Coronary angiography; [facility] Allergies Allergy/AdvReac Type Severity Reaction Status Date / Time azithromycin AdvReac Severe Gastrointestinal Verified 07/07/22 20:17 Upset Home Medications Medication Instructions Recorded Confirmed Type aspirin 81 mg tablet,delayed 81 mg PO DAILY 07/05/19 07/08/22 History release (Adult Low Dose Aspirin) citalopram 20 mg tablet 20 mg PO DAILY 07/05/19 07/08/22 History clopidogrel 75 mg tablet (Plavix) 75 mg PO DAILY 07/05/19 07/08/22 History nitroglycerin 0.4 mg sublingual 0.4 mg sublingual Q5-15M PRN Chest 07/05/19 07/08/22 History tablet (Nitrostat) Pain pantoprazole 40 mg tablet,delayed 40 mg PO DAILY 07/05/19 07/08/22 History release glimepiride 4 mg tablet 4 mg PO BID 08/20/19 07/08/22 History ropinirole 2 mg tablet 2 mg PO TID 08/20/19 07/08/22 History metoprolol tartrate 25 mg tablet 25 mg PO BID 10/12/19 07/08/22 History lisinopril 2.5 mg tablet 2.5 mg PO DAILY 01/13/20 07/08/22 History rosuvastatin 20 mg tablet 20 mg PO DAILY 08/03/20 07/08/22 History insulin glargine 100 unit/mL (3 45 unit subcut HS 07/08/22 07/08/22 History mL) subcutaneous pen (Salena Castillo U-100 Insulin) sitagliptin phosphate 100 mg 100 mg PO DAILY 07/08/22 07/08/22 History tablet (Januvia) Current Medications: Active Medications Acetaminophen (Acetaminophen 325 Mg Tablet) 650 mg PO Q4H PRN PRN Reason: Mild Pain (1-3) or Fever Hydrocodone Bitart/Acetaminophen (Hydrocodone/Acetaminophen (*Crx) 5-325 Mg Tablet) 1 tab PO Q4H PRN PRN Reason: Pain Rated 4-6 Aspirin (Aspirin 81 Mg Enteric Tablet) 81 mg PO DAILY PATRICK Last Admin: 07/08/22 08:35 Dose: 81 mg Citalopram Hydrobromide (Citalopram Hydrobromide 20 Mg Tablet) 20 mg PO DAILY [facility] Last Admin: 07/08/22 08:36 Dose: 20 mg Clopidogrel Bisulfate (Clopidogrel Bisulfate 75 Mg Tablet) 75 mg PO DAILY [facility] Last Admin: 07/08/22 08:35 Dose: 75 mg Dextrose (Dextrose 50% 25 Gm/50 Ml Syringe) 12.5 gm IV PUSH PRN PRN; Protocol PRN Reason: Hypoglycemia Glucagon (Glucagon For Inj 1 Mg Vial) 1 mg IM PRN PRN; Protocol PRN Reason: Hypoglycemia Glucose (Glucose Oral Gel 15 Gm Of Glucse In 37.5 Gm Tube) 15 gm PO PRN PRN; Protocol PRN Reason: Hypoglycemia Dextrose (Dextrose 5% 1,000 Ml) 1,000 mls @ 100 mls/hr IVPB PRN PRN; Protocol PRN Reason: Hypoglycemia Insulin Aspart (Insulin Aspart (*Bkc) 100 Units/Ml) 3 - [id number]; Protocol Last Admin: 07/08/22 16:30 Dose: 6 units Insulin Glargine (Insulin Glargine (*Bkc) 100 Units/Ml) 45 units SUB-Q [facility] Last Admin: 07/08/22 21:08 Dose: 45 units Lisinopril (Lisinopril 5 Mg Tablet) 5 mg PO DAILY [facility] Metoprolol Tartrate (Metoprolol Tartrate 25 Mg Tablet) 25 mg PO Q12HR [facility] Last Admin: 07/08/22 21:08 Dose: 25 mg Nitroglycerin (Nitroglycerin Sl 0.4 Mg Tablet) 0.4 mg SUBLINGUAL Q5MIN PRN PRN Reason: Chest Pain Ondansetron HCl (Ondansetron Inj 4 Mg/2 Ml Vial) 4 mg IV PUSH Q4H PRN PRN Reason: Nausea Last Admin: 07/08/22 09:40 Dose: 4 mg Pantoprazole Sodium (Pantoprazole 40 Mg Tablet) 40 mg PO DAILY [facility] Last Admin: 07/08/22 08:35 Dose: 40 mg Ropinirole HCl (Ropinirole Hcl 1 Mg Tablet) 2 mg PO TID [facility] Last Admin: 07/08/22 16:30 Dose: 2 mg Rosuvastatin Calcium (Rosuvastatin 10 Mg Tablet) 20 mg PO DAILY [facility] Last Admin: 07/08/22 08:35 Dose: 20 mg Sitagliptin Phosphate (Sitagliptin 100 Mg Tablet) 100 mg PO DAILY PATRICK Last Admin: 07/08/22 08:36 Dose: 100 mg Sedation/Anesthesia: No previous sedation/anesthesia problems (including family history). [facility] Past Medical History Medical History Anemia With history of blood transfusion. AV block Status post atrial pacemaker insertion. CHF (congestive heart failure) Coronary artery disease (~11/2017) Cardiac ca
--- NOTE | 2022-07-09 09:20 | PM.PNCARD ---
Progress Note: A&P Assessment and Plan (1) Chest pain: Code(s): R07.9 - Chest pain, unspecified Status: Acute (2) NSTEMI (non-ST elevated myocardial infarction): Code(s): I21.4 - Non-ST elevation (NSTEMI) myocardial infarction Status: Acute Plan Cardiac cath today. Continue ASA and Plavix. Further recommendations pending results of cardiac cath. Continue with increased dose of Lisinopril 5mg. Continue Crestor Time Spent With Patient Time with patient: 15 - 25 minutes Subjective Date/time seen: 07/09/22 09:20 Interval history: Reason for visit: Chest pain, NSTEMI. No acute events overnight. NPO for cardiac cath this AM. Review of Systems Review of Systems: 8-point ROS obtained. Negative, unless stated in HPI. Exam Const: General: comfortable and no acute distress HENMT: Mouth: Yes moist mucous membranes Eyes: Sclera: sclerae normal Neck: Neck: supple Carotids: bruit Resp: Effort & Inspection: normal respiratory effort Auscultation: clear to auscultation bilaterally Cardio: Rate: regular rate Rhythm: regular rhythm Heart sounds: no murmurs GI: GI Palp: Yes Soft to palpation Skin: General skin exam: normal color Neuro: Speech: normal speech Motor exam (neuro): 5/5 motor strength present throughout Extrem: General: normal to inspection and no edema Psych: Mental Status: mental status grossly normal Objective Data Vital Signs Vital Signs: Vital Signs - 24 hr 07/08/22 10:00 07/08/22 12:00 07/08/22 12:00 Temperature 36.1 C L Pulse Rate 75 73 Respiratory Rate 20 Blood Pressure 87/56 L Pulse Oximetry 91 Oxygen Delivery Room Air 07/08/22 12:00 07/08/22 14:00 07/08/22 16:00 Temperature 36.1 C L Pulse Rate 73 72 71 Respiratory Rate 24 H Blood Pressure 90/54 L Pulse Oximetry 91 Oxygen Delivery 07/08/22 16:00 07/08/22 16:00 07/08/22 18:00 Temperature Pulse Rate 72 77 Respiratory Rate Blood Pressure Pulse Oximetry Oxygen Delivery Room Air 07/08/22 20:00 07/08/22 21:08 07/08/22 20:00 Temperature 36.7 C Pulse Rate 73 74 76 Respiratory Rate 18 Blood Pressure 103/60 Pulse Oximetry 96 Oxygen Delivery 07/08/22 20:00 07/09/22 00:00 07/09/22 00:15 Temperature 36.5 C Pulse Rate 76 74 Respiratory Rate 18 20 Blood Pressure 98/51 L Pulse Oximetry 96 97 95 Oxygen Delivery Room Air Room Air 07/08/22 22:00 07/09/22 00:00 07/09/22 00:00 Temperature Pulse Rate 76 77 77 Respiratory Rate 20 Blood Pressure Pulse Oximetry 95 Oxygen Delivery Room Air 07/09/22 02:00 07/09/22 04:00 07/09/22 04:00 Temperature Pulse Rate 75 80 80 Respiratory Rate 20 Blood Pressure Pulse Oximetry 95 Oxygen Delivery Room Air 07/09/22 04:00 07/09/22 06:00 07/09/22 08:00 Temperature 36.7 C 36.8 C Pulse Rate 80 70 78 Respiratory Rate 20 16 Blood Pressure 102/60 120/66 Pulse Oximetry 97 99 Oxygen Delivery Intake/Output Intake/Output: Intake & Output 07/06/22 07/07/22 07/08/22 07/09/22 23:59 23:59 23:59 23:59 Intake Total 390 200 Output Total 450 500 Balance -60 -300 Meds/Results Medications: Active Medications Generic Name Dose Route Start Last Admin Trade Name Freq PRN Reason Stop Dose Admin Acetaminophen 650 mg 07/07/22 23:19 Acetaminophen 325 Mg Tablet PO Q4H PRN Mild Pain (1-3) or Fever Hydrocodone Bitart/Acetaminophen 1 tab 07/07/22 23:19 Hydrocodone/Acetaminophen (*Crx) 5-325 Mg Tablet PO Q4H PRN Pain Rated 4-6 Aspirin 81 mg 07/08/22 09:00 07/08/22 08:35 Aspirin 81 Mg Enteric Tablet PO 81 mg DAILY PATRICK Administration Citalopram Hydrobromide 20 mg 07/08/22 09:00 07/08/22 08:36 Citalopram Hydrobromide 20 Mg Tablet PO 20 mg DAILY PATRICK Administration Clopidogrel Bisulfate 75 mg 07/08/22 09:00 07/08/22 08:35 Clopidogrel Bisulfate 75 Mg Tablet PO 75 mg DAILY PATRICK Administ
--- NOTE | 2022-07-09 09:33 | WPDCARDPROC ---
Cardiac Cath Procedure Note Date of procedure:: 07/09/22 Performing physician:: CATHETERIZATION LABORATORY REPORT Procedure Date: 07/09/2022 Gas Line Installer Supervisor: Manfred Oglesby M.D., [facility]? Referring Physician: Dr. Matias Anesthesia: Versed and Fentanyl were ordered and given in my presence at 09:34, procedure ended at 10:23. Supervision of nurse monitored moderate sedation with Versed and Fentanyl was provided for 49 minutes. Total of Versed 2mg and Fentanyl 125mcg were administered. Pre-op Diagnosis: NSTEMI Post-op Diagnosis: Coronary angiography findings are unchanged compared to prior cath from 05/12/2021 Coronary artery disease with chronic total occlusion of diagonal branch which was previously stented in the remote past and is known to be chronically occluded. Moderate 70% stenosis in small LPDA Left-dominant coronary artery system Left ventricular end-diastolic pressure of 17mmHg Procedure(s): Moderate sedation Ultrasound-guided access of the right radial artery Ultrasound-guided access of the right common femoral artery Left heart catheterization with coronary angiography Angioseal closure of the right common femoral artery Access Site: Right radial artery Right common femoral artery Brief History and Clinical Indications: Patient is a 56-year-old female with known coronary artery disease who is referred for [facility] for NSTEMI. All risks, benefits and alternatives to left heart catheterization with or without percutaneous coronary intervention was discussed at length with the patient. Risk of complications including but not limited to bleeding, infection, arrhythmia, stroke, worsening kidney function, blood loss, groin hematoma, limb loss, emergency coronary artery bypass grafting, and even were discussed with the patient and all questions were answered. The patient understood and wished to proceed. Time out called, patient name, date of , medical record number, allergies, procedure performed, identify Gas Line Installer Supervisor, patient and staff member concurred with accurate data, procedure carried on. Findings: LEFT HEART CATHETERIZATION FINDINGS: 1. Left main: The left main coronary artery is widely patent without any significant obstructive disease. 2. Left anterior descending: The LAD has mild luminal irregularities without any significant obstructive angiographic disease. Previous stent in the diagonal vessel, which is chronically occluded; known to be occluded. 3. Left circumflex: The left circumflex artery and the main marginal branches have mild luminal irregularities without any significant obstructive angiographic disease. The LCX is the dominant vessel. The LPDA has a 70% stenosis in its mid segment. LPDA is small caliber. 4. Right coronary artery: Small caliber vessel. Non-dominant. The RCA has mild luminal irregularities without any significant obstructive angiographic disease. 5. Left ventricle: A. End-diastolic pressure 17mmHg. B. LV gram deferred. C. No significant gradient across aortic valve on catheter pullback. Description of Procedure: Informed consent signed and placed in the chart. Patient transferred to candlemaking laborer room. Prepped and draped in usual sterile fashion. 2% lidocaine injected subcutaneously in right wrist area. 22-gauge venipuncture catheter used to access the right radial artery with the Seldinger technique. 6-FR slender sheath placed in right radial artery. Nitroglycerine and Cardene was given intraarterial through the sheath. Versacore wire advanced under fluoroscopy. Unable to engage the coronary arteries from radial access due to aorta tortuosity. Therefore, femoral access pursued. 2% lidocaine in right groin area. Micropuncture needle used to access right common femoral artery with Seldinger technique under fluoroscopic guidance. J wire advanced, micropuncture cannula placed. Right iliofemoral angiogram performed, access confirmed and micropuncture cannula exchanged for 5-
[2022-07-09 13:02] LABS: Glucose Point of Care 329 mg/dl (65-105)
[2022-07-09] MEDS: ROSUVASTATIN 10 MG TABLET 20 MG PO (13:09)
[2022-07-09] MEDS: rOPINIRole HCL 1 MG TABLET 2 MG PO ×2 (13:09→17:20)
[2022-07-09] MEDS: METOPROLOL TARTRATE 25 MG TABLET PO (13:10)
[2022-07-09] MEDS: PANTOPRAZOLE 40 MG TABLET PO (13:10)
[2022-07-09] MEDS: ASPIRIN 81 MG ENTERIC TABLET PO (13:11)
[2022-07-09] MEDS: CITALOPRAM HYDROBROMIDE 20 MG TABLET PO (13:11)
[2022-07-09] MEDS: CLOPIDOGREL BISULFATE 75 MG TABLET PO (13:11)
[2022-07-09] MEDS: INSULIN ASPART (*BKC) 100 UNITS/ML SUB-Q ×2 (13:12→17:20)
[2022-07-09] MEDS: lisinopriL 5 MG TABLET PO (13:12)
--- NOTE | 2022-07-09 15:36 | PM.DS ---
DS: Admitting Diagnosis Discharge Date July 09, 2022 Admitting Diagnosis Chest pain DS: Discharge Diagnosis Discharge Diagnosis (1) Chest pain: Qualifiers: Chest pain type: unspecified Qualified Code(s): R07.9 - Chest pain, unspecified Code(s): R07.9 - Chest pain, unspecified Status: Acute Assessment and Plan: NSTEMI, NPO, heart catheterization today, appreciate cardiology consultation (2) AV block: Code(s): I44.30 - Unspecified atrioventricular block Status: Acute Assessment and Plan: status post pacemaker placement (3) Pulmonary hypertension: Code(s): I27.20 - Pulmonary hypertension, unspecified Status: Acute Assessment and Plan: stable (4) Coronary artery disease: Onset Date: ~11/2017 Qualifiers: Coronary Disease-Associated Artery/Lesion type: [place] artery Elem vs. transplanted heart: [place] heart Associated angina: without angina Qualified Code(s): I25.10 - Atherosclerotic heart disease of [place] coronary artery without angina pectoris Code(s): I25.10 - Atherosclerotic heart disease of [place] coronary artery without angina pectoris Status: Acute Assessment and Plan: continue home meds (5) Insulin dependent type 2 diabetes mellitus: Code(s): E11.9 - Type 2 diabetes mellitus without complications; Z79.4 - watermelon inspector (current) use of insulin Status: Acute Assessment and Plan: continue home meds holding glipizide (6) Chronic kidney disease, stage 3: Code(s): N18.3 - Chronic kidney disease, stage 3 (moderate) Status: Chronic Assessment and Plan: stable (7) Morbid obesity: Code(s): E66.01 - Morbid (severe) obesity due to excess calories Status: Chronic Assessment and Plan: defer to outpatient management (8) GERD (gastroesophageal reflux disease): Qualifiers: Esophagitis presence: esophagitis presence not specified Qualified Code(s): K21.9 - Gastro-esophageal reflux disease without esophagitis Code(s): K21.9 - Gastro-esophageal reflux disease without esophagitis Status: Chronic Assessment and Plan: continue PPI (9) HTN (hypertension): Qualifiers: Hypertension type: essential hypertension Qualified Code(s): I10 - Essential (primary) hypertension Code(s): I10 - Essential (primary) hypertension Status: Chronic Assessment and Plan: continue home meds Plan DVT prophylaxis with Lovenox GI prophylaxis not indicated Code status full code DS: Summary Hospital Course Hospital Course: 56-year-old female with past medical history significant for coronary artery disease, pacemaker? implanted, insulin-dependent diabetes mellitus, GERD, dyslipidemia, congestive heart failure, depression anxiety, diabetic peripheral neuropathy, restless leg syndrome. patient presents to the emergency room with complaints of chest pain with radiation to her left shoulder and jaw as well as her arm this has been going on for the last couple of hours she has been her usual state of health prior to these. She was admitted to monitor life telemetry and trend her troponins. Cardiology was consulted because her troponin was increased. Cardiology recommended a heart catheterization due to concern for NSTEMI. Echo showed an EF of 50-55% with grade 1 diastolic dysfunction, moderate to severe mitral valve regurgitation. Heart catheterization recommended medical management for the NSTEMI. They recommend dual anti-platelet therapy for 1 year followed by aspirin indefinitely. Time Spent with Patient Time attestation: Total time spent providing and/or coordinating discharge services: Exam Narrative: General: No acute distress, alert and oriented per baseline HEENT: Atraumatic, normocephalic, mucous membranes moist CV: Regular rate and rhythm, S1, S2 Lungs: Clear to auscultation bilaterally, no rales
[2022-07-09 16:54] LABS: Glucose Point of Care 267 mg/dl (65-105)
== END 2022-07-09 18:04 | disposition home or self-care (01) | DRG 190 ==
LOC: ANHED 20:45 → ANHIMU 23:32
PROVIDERS: Emergency Medicine; Internal Medicine; Internal Medicine Cardiovascular Disease; Admitting Provider Internal Medicine; Emergency Provider Emergency Medicine; PCP Nurse Practitioner Family; Visit Provider Student in an Organized Health Care Education/Training Program
PROC: 4A023N7 Measurement of Cardiac Sampling and Pressure, Left Heart, Percutaneous Approach (ICD-10-PCS; CPT 93452; principal; 2022-07-09 10:00)
PROC: 4A023N7 Measurement of Cardiac Sampling and Pressure, Left Heart, Percutaneous Approach (ICD-10-PCS; CPT 36140; 2022-07-09 10:00)
PROC: 4A023N7 Measurement of Cardiac Sampling and Pressure, Left Heart, Percutaneous Approach (ICD-10-PCS; 2022-07-09 10:00)
DX: I21.4 Non-ST elevation (NSTEMI) myocardial infarction (principal); E11.22 Type 2 diabetes mellitus with diabetic chronic kidney disease; E11.42 Type 2 diabetes mellitus with diabetic polyneuropathy; E66.01 Morbid (severe) obesity due to excess calories; I27.20 Pulmonary hypertension, unspecified; Z68.34 Body mass index [BMI] 34.0-34.9, adult; I25.10 Atherosclerotic heart disease of native coronary artery without angina pectoris; Z20.822 Contact with and (suspected) exposure to COVID-19; I44.30 Unspecified atrioventricular block; E11.69 Type 2 diabetes mellitus with other specified complication; E78.5 Hyperlipidemia, unspecified; I15.2 Hypertension secondary to endocrine disorders; I13.0 Hypertensive heart and chronic kidney disease with heart failure and stage 1 through stage 4 chronic kidney disease, or unspecified chronic kidney disease; I50.9 Heart failure, unspecified; N18.30 Chronic kidney disease, stage 3 unspecified; I34.0 Nonrheumatic mitral (valve) insufficiency; G25.81 Restless legs syndrome; F41.8 Other specified anxiety disorders; K21.9 Gastro-esophageal reflux disease without esophagitis; E55.9 Vitamin D deficiency, unspecified; I25.2 Old myocardial infarction; Z79.4 Long term (current) use of insulin; Z79.82 Long term (current) use of aspirin; Z79.84 Long term (current) use of oral hypoglycemic drugs; Z79.899 Other long term (current) drug therapy; Z95.0 Presence of cardiac pacemaker; Z95.5 Presence of coronary angioplasty implant and graft; Z98.890 Other specified postprocedural states
CPT/HCPCS: 36140; 36415; 71045; 80053; 82948; 83036; 83690; 84484; 85025; 85610; 85730; 93005; 93458; 96372; 96374; 96375; 99285; A9270; C1760; C1769; C1887; C1894; C8929; G0269; G0378; G0379; J1644; J1650; J1815; J2250; J2405; J3010; J7040; Q9957; U0003; U0005

== ENCOUNTER 2022-08-15 23:59 | Emergency (ER) | payer OTHER, SELFPAY ==
[2022-08-16 00:01] VITALS: BP 133/70; PULSE 96; RESP 16; TEMP 36.7; O2SAT 99
[2022-08-16 00:11] LABS: Glucose Point of Care > 500 mg/dl (65-105)
[2022-08-16] MEDS: SODIUM CHLORIDE 0.9% IV 1,000 ML 999 ML IV CONT (03:19)
[2022-08-16 03:25] LABS: Basophils Percent Auto 0.6 % (0.2-1.2); Eosinophils Absolute Auto 0.1 K/mm3 (0-0.3); Eosinophils Percent Auto 1.3 % (0-4.4); Hematocrit 43.9 % (37.0-47.0); Hemoglobin 14.4 g/dL (12.0-15.0); Immature Granulocyte Absolute 0.02 K/mm3 (0.00-0.031); Immature Granulocyte Percent A 0.4 % (0-0.5); Lymphocytes Absolute Auto 1.27 K/mm3 (0.9-3.2); Lymphocytes Percent Auto 24.1 % (18.3-44.2); Mean Corpuscular HGB Conc 32.8 g/dl (32-36); Mean Corpuscular Hemoglobin 26.8 pg (26-34); Mean Corpuscular Volume 81.6 fl (80-100); Mean Platelet Volume 11.1 fl (7.4-10.4); Monocytes Absolute Auto 0.5 K/mm3 (0.1-0.6); Monocytes Percent Auto 8.9 % (2.6-8.5); Neutrophils Absolute Auto 3.4 K/mm3 (1.3-6.7); Neutrophils Percent Auto 64.7 % (45.5-73.1); Platelet Count Result 258 k/mm3 (150-375); Red Blood Count 5.38 M/mm3 (4.2-5.4); Red Cell Distribution Width 13.9 % (11.5-14.5); White Blood Count 5.3 K/mm3 (4.5-10.0)
[2022-08-16 03:34] LABS: Add Urine Microscopic? YES; Appearance Urine Clear (Clear); Bilirubin Urine Negative (Negative); Blood Urine Negative (Negative); Color Urine Light Yellow (Yellow); Glucose Urine UA 3+ mg/dL (Negative); Ketones Urine Negative (Negative); Leukocyte Esterase Ur Negative LEU/UL (Negative); Nitrate Urine Negative (Negative); Protein Urine Negative (Negative); Specific Grav Ur 1.015 (1.001-1.035); Urobilinogen Urine 0.2 mg/dL (<2.0); pH Urine 5.5 (5.0-9.0)
[2022-08-16 03:35] LABS: Alanine Aminotransferase 25 U/L (6-35); Albumin Level 4.4 g/dL (3.5-5.1); Alkaline Phosphatase 203 U/L (38-126); Anion Gap 9 mmol/L (8-16); Aspartate Amino Transferase 24 U/L (14-36); Bilirubin,Total 0.7 mg/dL (0.2-1.3); Blood Urea Nitrogen 31 mg/dL (7-17); Calcium 9.2 mg/dL (8.4-10.2); Carbon Dioxide 27 mmol/L (22-30); Chloride 97 mmol/L (98-107); Estimated CRCL calculation 51 ml/min; Estimated Glomerular Filt Rate 57; Glucose 393 mg/dL (65-110); Potassium 4.5 mmol/L (3.4-5.0); Sodium 133 mmol/L (137-145)
[2022-08-16 03:40] LABS: Bacteria Urine Trace /hpf; Squamous Epithelial Cell Urine Occasional /hpf (Few); WBC Urine 0-3 /hpf
[2022-08-16 05:29] LABS: Glucose Point of Care 300 mg/dl (65-105)
--- NOTE | 2022-08-16 05:34 | ED.RECABL ---
HPI - Recheck/Abnormal Lab/Rx General Chief Complaint: Recheck/Abnormal Lab/Rx Stated Complaint: hyperglycemia Time Seen by Provider: 08/16/22 02:48 History of Present Illness HPI narrative: Patient is a 56-year-old female who presents ER with hyperglycemia. Patient reports she was at home when she began to feel dizzy. She decided to check her blood sugar and she noticed that it was 505. She took it 2-3 more times and each time it was still over 500. She took little bit of her home insulin this evening in the bed to correct it. She is having no nausea or vomiting. No chest pain or shortness of breath. No urinary symptoms no respiratory symptoms. Patient has history of poorly controlled diabetes. She reports compliance with her home medications. She reports her significant other is when her gets her injections. Related Data Home Medications Medication Instructions Recorded Confirmed aspirin 81 mg tablet,delayed 81 mg PO DAILY 07/05/19 07/08/22 release (Adult Low Dose Aspirin) citalopram 20 mg tablet 20 mg PO DAILY 07/05/19 07/08/22 clopidogrel 75 mg tablet (Plavix) 75 mg PO DAILY 07/05/19 07/08/22 nitroglycerin 0.4 mg sublingual 0.4 mg sublingual Q5-15M PRN Chest 07/05/19 07/08/22 tablet (Nitrostat) Pain pantoprazole 40 mg tablet,delayed 40 mg PO DAILY 07/05/19 07/08/22 release glimepiride 4 mg tablet 4 mg PO BID 08/20/19 07/08/22 ropinirole 2 mg tablet 2 mg PO TID 08/20/19 07/08/22 metoprolol tartrate 25 mg tablet 25 mg PO BID 10/12/19 07/08/22 rosuvastatin 20 mg tablet 20 mg PO DAILY 08/03/20 07/08/22 insulin glargine 100 unit/mL (3 45 unit subcut HS 07/08/22 07/08/22 mL) subcutaneous pen (Basaglar KwikPen U-100 Insulin) sitagliptin phosphate 100 mg 100 mg PO DAILY 07/08/22 07/08/22 tablet (Januvia) Allergies Allergy/AdvReac Type Severity Reaction Status Date / Time azithromycin AdvReac Severe Gastrointestinal Verified 07/07/22 20:17 Upset Review of Systems Review of Systems: All systems reviewed & are unremarkable except as noted in HPI and below Constitutional: Constitutional: Denies chills and Denies fever(s) ENT: Reports dizziness, Denies nasal congestion and Denies sore throat Cardiovascular: Cardiovascular: Denies chest pain, Denies rapid heart rate and Denies radiating jaw, neck or arm pain Respiratory: Respiratory: Denies cough and Denies dyspnea Gastrointestinal: Gastrointestinal: Denies abdominal pain, Denies nausea and Denies vomiting Neurologic: Denies headache(s), Denies numbness and Denies weakness [facility] Past Medical History Medical History Anemia With history of blood transfusion. AV block Status post atrial pacemaker insertion. CHF (congestive heart failure) Coronary artery disease (~11/2017) Cardiac catheterization per Dr. Montalvo demonstrated distal 1st diagonal vessel total occlusion status post angioplasty and stent placement. Depression with anxiety Diabetic peripheral neuropathy Eczema Gastroesophageal reflux disease Hyperlipidemia Hypertension Insulin dependent type 2 diabetes mellitus Hemoglobin A1c was 9.8% in July 2019. Myocardial infarction x2 Osteoarthritis Peripheral neuropathy Previous known suicide attempt Restless leg syndrome Seasonal allergies Septal defect Patient on certain whether this was an ASD or VSD repair, done at the age of 39. Valvular heart disease Status post mitral valve repair. ADARSH September 18, 2019 showed moderate to severe mitral valve calcification with decreased movement and evidence of moderate mitral valve regurgitation. Vitamin D deficiency Surgical History Surgical History History of History of cardiac catheterization (~11/2017) Status post angioplasty and stent placement to distal 1st diagonal per Dr. Montalvo. History of permanent cardiac pacemaker placement x2 History of sternectomy Repai
== END 2022-08-16 05:59 | disposition home or self-care (01) ==
PROVIDERS: Emergency Provider Emergency Medicine
DX: E11.65 Type 2 diabetes mellitus with hyperglycemia (principal); E11.42 Type 2 diabetes mellitus with diabetic polyneuropathy; I50.9 Heart failure, unspecified; I25.10 Atherosclerotic heart disease of native coronary artery without angina pectoris; I25.2 Old myocardial infarction; I38 Endocarditis, valve unspecified; K21.9 Gastro-esophageal reflux disease without esophagitis; M19.90 Unspecified osteoarthritis, unspecified site; G25.81 Restless legs syndrome; E55.9 Vitamin D deficiency, unspecified; F41.9 Anxiety disorder, unspecified; F32.A Depression, unspecified; Z95.0 Presence of cardiac pacemaker; Z86.2 Personal history of diseases of the blood and blood-forming organs and certain disorders involving the immune mechanism; Z79.82 Long term (current) use of aspirin; Z79.02 Long term (current) use of antithrombotics/antiplatelets; Z79.84 Long term (current) use of oral hypoglycemic drugs; Z79.4 Long term (current) use of insulin
CPT/HCPCS: 36415; 80053; 81001; 82948; 85025; 96360; 99283; J7030

== ENCOUNTER 2022-12-22 11:31 | Emergency (ER) | payer OTHER, SELFPAY ==
[2022-12-22] VITALS (34 sets, daily range): BP systolic 122–158; BP diastolic 77–110; PULSE 78–96; RESP 16–18; TEMP 36; O2SAT 91–100
--- NOTE | 2022-12-22 12:05 | ED.GENADULT ---
HPI - General Adult General Chief complaint: Unspecified Stated complaint: Elevated BS Time Seen by Provider: 12/22/22 11:50 History of Present Illness HPI narrative: 57-year-old female here for evaluation of elevated blood sugar. Patient saw her primary care doctor for checkup this morning, patient decided to stop taking all of her medicines randomly 6 months ago and presented to her primary care doctor because she wanted advice about restarting them. She takes over 14 medications including insulin for diabetes. At her doctor's office her blood sugar was 490 so her primary doctor referred her here. Patient states that she feels weak and tired but has felt this way for 2 months. She denies any nausea, vomiting, diarrhea, constipation or fevers. No chest pain or shortness of breath. She does have some epigastric abdominal pain that she attributes to gas pain . Related Data Home Medications Medication Instructions Recorded Confirmed aspirin 81 mg tablet,delayed 81 mg PO DAILY 07/05/19 07/08/22 release (Adult Low Dose Aspirin) citalopram 20 mg tablet 20 mg PO DAILY 07/05/19 07/08/22 clopidogrel 75 mg tablet (Plavix) 75 mg PO DAILY 07/05/19 07/08/22 nitroglycerin 0.4 mg sublingual 0.4 mg sublingual Q5-15M PRN Chest 07/05/19 07/08/22 tablet (Nitrostat) Pain pantoprazole 40 mg tablet,delayed 40 mg PO DAILY 07/05/19 07/08/22 release glimepiride 4 mg tablet 4 mg PO BID 08/20/19 07/08/22 ropinirole 2 mg tablet 2 mg PO TID 08/20/19 07/08/22 metoprolol tartrate 25 mg tablet 25 mg PO BID 10/12/19 07/08/22 rosuvastatin 20 mg tablet 20 mg PO DAILY 08/03/20 07/08/22 insulin glargine 100 unit/mL (3 45 unit subcut HS 07/08/22 07/08/22 mL) subcutaneous pen (Basaglar KwikPen U-100 Insulin) sitagliptin phosphate 100 mg 100 mg PO DAILY 07/08/22 07/08/22 tablet (Januvia) Allergies Allergy/AdvReac Type Severity Reaction Status Date / Time azithromycin AdvReac Severe Gastrointestinal Verified 07/07/22 20:17 Upset Review of Systems Review of Systems: Gen: Reports weakness Eyes: Denies eye pain or visual change ENT: Denies congestion Respiratory: Denies shortness of breath or cough CV: Denies chest pain or palpitations GI: Reports gas pain. Denies nausea, emesis or diarrhea : denies burning, urgency, frequency or hematuria Musculoskeletal: Denies back pain or muscle pain Neuro: Denies numbness, tingling, weakness or focal weakness Skin: Denies rash Except as documented, all other systems reviewed and negative [facility] Past Medical History Medical History Anemia With history of blood transfusion. AV block Status post atrial pacemaker insertion. CHF (congestive heart failure) Coronary artery disease (~11/2017) Cardiac catheterization per Dr. Montalvo demonstrated distal 1st diagonal vessel total occlusion status post angioplasty and stent placement. Depression with anxiety Diabetic peripheral neuropathy Eczema Gastroesophageal reflux disease Hyperlipidemia Hypertension Insulin dependent type 2 diabetes mellitus Hemoglobin A1c was 9.8% in July 2019. Myocardial infarction x2 Osteoarthritis Peripheral neuropathy Previous known suicide attempt Restless leg syndrome Seasonal allergies Septal defect Patient on certain whether this was an ASD or VSD repair, done at the age of 39. Valvular heart disease Status post mitral valve repair. ADARSH September 18, 2019 showed moderate to severe mitral valve calcification with decreased movement and evidence of moderate mitral valve regurgitation. Vitamin D deficiency Surgical History Surgical History History of History of cardiac catheterization (~11/2017) Status post angioplasty and stent placement to distal 1st diagonal per Dr. Montalvo. History of permanent cardiac pacemaker placement x2 History of sternectomy Repaired hole in h
[2022-12-22 12:24] LABS: Fractional Inspired Oxygen 21 %; HCO3 VBG 13.3 mEq/l (24.0-30.0); PO2 VBG 142.8 mmHg (35.0-45.0)
[2022-12-22 12:25] LABS: Device ROOM AIR; PCO2 VBG 15.3 mmHg (42.0-48.0); pH VBG 7.556 (7.300-7.400)
[2022-12-22 12:29] LABS: Basophils Percent Auto 0.7 % (0.2-1.2); Eosinophils Percent Auto 0.7 % (0-4.4); Hematocrit 45.5 % (37.0-47.0); Hemoglobin 15.3 g/dL (12.0-15.0); Immature Granulocyte Absolute 0.02 K/mm3 (0.00-0.031); Immature Granulocyte Percent A 0.4 % (0-0.5); Lymphocytes Absolute Auto 1.07 K/mm3 (0.9-3.2); Lymphocytes Percent Auto 18.9 % (18.3-44.2); Mean Corpuscular HGB Conc 33.6 g/dl (32-36); Mean Corpuscular Volume 80.4 fl (80-100); Mean Platelet Volume 10.9 fl (7.4-10.4); Monocytes Absolute Auto 0.5 K/mm3 (0.1-0.6); Monocytes Percent Auto 8.7 % (2.6-8.5); Neutrophils Percent Auto 70.6 % (45.5-73.1); Platelet Count Result 204 k/mm3 (150-375); Red Blood Count 5.66 M/mm3 (4.2-5.4); Red Cell Distribution Width 14.4 % (11.5-14.5); White Blood Count 5.7 K/mm3 (4.5-10.0)
[2022-12-22 12:42] LABS: Appearance Urine Clear (Clear); Bilirubin Urine Negative (Negative); Blood Urine Negative (Negative); Color Urine Yellow (Yellow); Glucose Urine UA 3+ mg/dL (Negative); Ketones Urine Negative (Negative); Leukocyte Esterase Ur Negative LEU/UL (Negative); Nitrate Urine Negative (Negative); Protein Urine Negative (Negative); Specific Grav Ur 1.028 (1.001-1.035); Urobilinogen Urine 0.2 mg/dL (<2.0); pH Urine 5.5 (5.0-9.0)
[2022-12-22 12:49] LABS: Beta-Hydroxybutyrate/Acetoacetate 0.58 mmol/L (0.02-0.27)
[2022-12-22 12:51] LABS: Add Urine Microscopic? NO
[2022-12-22 12:51] LABS: Alanine Aminotransferase 28 U/L (6-35); Albumin Level 4.3 g/dL (3.5-5.1); Alkaline Phosphatase 256 U/L (38-126); Anion Gap 12 mmol/L (8-16); Aspartate Amino Transferase 22 U/L (14-36); Bilirubin,Total 0.8 mg/dL (0.2-1.3); Blood Urea Nitrogen 18 mg/dL (7-17); Calcium 9.1 mg/dL (8.4-10.2); Carbon Dioxide 21 mmol/L (22-30); Chloride 96 mmol/L (98-107); Estimated CRCL calculation 54 ml/min; Estimated Glomerular Filt Rate > 60; Glucose 500 mg/dL (65-110); Lipase 84 U/L (23-300); Magnesium 1.8 mg/dL (1.6-2.3); Potassium 4.8 mmol/L (3.4-5.0); Sodium 129 mmol/L (137-145)
[2022-12-22] MEDS: SODIUM CHLORIDE 0.9% IV 1,000 ML 999 ML IV CONT ×2 (12:52→15:26)
[2022-12-22] MEDS: INSULIN HUMAN REGULAR (*BKC) 100 UNITS/ML 10 UNITS SUB-Q (13:55)
[2022-12-22 15:23] LABS: Glucose Point of Care 361 mg/dl (65-105)
[2022-12-22 16:59] LABS: Glucose Point of Care 287 mg/dl (65-105)
== END 2022-12-22 17:50 | disposition home or self-care (01) ==
PROVIDERS: Emergency Provider Physician Assistant
DX: E11.65 Type 2 diabetes mellitus with hyperglycemia (principal); T38.3X6A Underdosing of insulin and oral hypoglycemic [antidiabetic] drugs, initial encounter; Z91.128 Patient's intentional underdosing of medication regimen for other reason; I25.10 Atherosclerotic heart disease of native coronary artery without angina pectoris; I11.0 Hypertensive heart disease with heart failure; I50.9 Heart failure, unspecified; I25.2 Old myocardial infarction; I38 Endocarditis, valve unspecified; E11.42 Type 2 diabetes mellitus with diabetic polyneuropathy; D64.9 Anemia, unspecified; K21.9 Gastro-esophageal reflux disease without esophagitis; F41.8 Other specified anxiety disorders; E78.5 Hyperlipidemia, unspecified; E55.9 Vitamin D deficiency, unspecified; M19.90 Unspecified osteoarthritis, unspecified site; G25.81 Restless legs syndrome; E87.3 Alkalosis; E87.1 Hypo-osmolality and hyponatremia; Z95.0 Presence of cardiac pacemaker; Z95.5 Presence of coronary angioplasty implant and graft; Z79.4 Long term (current) use of insulin; Z79.84 Long term (current) use of oral hypoglycemic drugs; Z79.82 Long term (current) use of aspirin
CPT/HCPCS: 36415; 80053; 81003; 82010; 82803; 82948; 83690; 83735; 85025; 96360; 96361; 99283; J1815; J7030

== ENCOUNTER 2023-05-07 14:51 | Emergency (ER) | payer OTHER, SELFPAY ==
[2023-05-07 14:54] VITALS: BP 153/101; PULSE 101; RESP 16; TEMP 36.7; O2SAT 100
[2023-05-07 16:11] VITALS: BP 148/83; PULSE 96; RESP 18; O2SAT 95
[2023-05-07 16:14] LABS: Appearance Urine Clear (Clear); Bacteria Urine 1+ /hpf; Bilirubin Urine Negative (Negative); Blood Urine Negative (Negative); Color Urine Yellow (Yellow); Glucose Urine UA 3+ mg/dL (Negative); Ketones Urine Negative (Negative); Leukocyte Esterase Ur Negative LEU/UL (Negative); Nitrate Urine Negative (Negative); Non Pathogenic Casts 0-2; Protein Urine 3+ mg/dL (Negative); RBC Urine 0-2 /hpf (0-2); Specific Grav Ur 1.021 (1.001-1.035); Squamous Epithelial Cell Urine Few /hpf (Few); pH Urine 5.5 (5.0-9.0)
[2023-05-07 16:22] LABS: Add Urine Microscopic? YES
--- NOTE | 2023-05-07 16:49 | ED.SKABFB ---
HPI - Skin/Abscess/Foreign Bdy General Chief complaint: Skin/Abscess/Foreign Body Stated complaint: n/v, rash to left face Time Seen by Provider: 05/07/23 15:03 Source: patient Mode of arrival: ambulatory Limitations: no limitations History of Present Illness HPI narrative: 57-year-old female presents today with complaints of a rash to the left side of her face that is been there for a couple days. Patient states she thinks she got bit by an insect and then noticed a little bit of redness and increased redness overnight. Patient says the area does itch. She denies any fevers, body aches. Does state that she have chills. Patient also with complaints of increased urination and burning on urination that started last night. Patient is diabetic, history of CABG. States her hemoglobin A1c she thinks is 13. Related Data Home Medications Medication Instructions Recorded Confirmed aspirin 81 mg tablet,delayed 81 mg PO DAILY 07/05/19 07/08/22 release (Adult Low Dose Aspirin) citalopram 20 mg tablet 20 mg PO DAILY 07/05/19 07/08/22 clopidogrel 75 mg tablet (Plavix) 75 mg PO DAILY 07/05/19 07/08/22 nitroglycerin 0.4 mg sublingual 0.4 mg sublingual Q5-15M PRN Chest 07/05/19 07/08/22 tablet (Nitrostat) Pain pantoprazole 40 mg tablet,delayed 40 mg PO DAILY 07/05/19 07/08/22 release glimepiride 4 mg tablet 4 mg PO BID 08/20/19 07/08/22 ropinirole 2 mg tablet 2 mg PO TID 08/20/19 07/08/22 metoprolol tartrate 25 mg tablet 25 mg PO BID 10/12/19 07/08/22 rosuvastatin 20 mg tablet 20 mg PO DAILY 08/03/20 07/08/22 insulin glargine 100 unit/mL (3 45 unit subcut HS 07/08/22 07/08/22 mL) subcutaneous pen (Basaglar KwikPen U-100 Insulin) sitagliptin phosphate 100 mg 100 mg PO DAILY 07/08/22 07/08/22 tablet (Januvia) Allergies Allergy/AdvReac Type Severity Reaction Status Date / Time azithromycin AdvReac Severe Gastrointestinal Verified 05/07/23 15:04 Upset Review of Systems Review of Systems: All systems reviewed & are unremarkable except as noted in HPI and below PMFSH Past Medical History Medical History Anemia With history of blood transfusion. AV block Status post atrial pacemaker insertion. CHF (congestive heart failure) Coronary artery disease (~11/2017) Cardiac catheterization per Dr. Montalvo demonstrated distal 1st diagonal vessel total occlusion status post angioplasty and stent placement. Depression with anxiety Diabetic peripheral neuropathy Eczema Gastroesophageal reflux disease Hyperlipidemia Hypertension Insulin dependent type 2 diabetes mellitus Hemoglobin A1c was 9.8% in July 2019. Myocardial infarction x2 Osteoarthritis Peripheral neuropathy Previous known suicide attempt Restless leg syndrome Seasonal allergies Septal defect Patient on certain whether this was an ASD or VSD repair, done at the age of 39. Valvular heart disease Status post mitral valve repair. ADARSH September 18, 2019 showed moderate to severe mitral valve calcification with decreased movement and evidence of moderate mitral valve regurgitation. Vitamin D deficiency Surgical History Surgical History History of History of cardiac catheterization (~11/2017) Status post angioplasty and stent placement to distal 1st diagonal per Dr. Montalvo. History of permanent cardiac pacemaker placement x2 History of sternectomy Repaired hole in heart, patient unsure whether it was in atrial or ventricular septal defect. Family History Family History Mother Peripheral vascular disease Sibling Diabetes mellitus Social History Social History Social History: The patient currently lives in her own home with her boyfriend. She is on disability. She is a lifelong nonsmoker and denies alcohol and drug
== END 2023-05-07 17:16 | disposition home or self-care (01) ==
PROVIDERS: Emergency Provider Nurse Practitioner Family
DX: L03.211 Cellulitis of face (principal); N39.0 Urinary tract infection, site not specified; I11.0 Hypertensive heart disease with heart failure; I50.9 Heart failure, unspecified; I25.10 Atherosclerotic heart disease of native coronary artery without angina pectoris; E78.5 Hyperlipidemia, unspecified; E11.9 Type 2 diabetes mellitus without complications; I25.2 Old myocardial infarction; Z95.1 Presence of aortocoronary bypass graft
CPT/HCPCS: 81001; 87086; 87088; 99283

== ENCOUNTER 2023-08-13 15:25 | Emergency (ER) | payer OTHER, SELFPAY ==
[2023-08-13 15:28] VITALS: BP 126/71; PULSE 90; RESP 18; TEMP 36.3; O2SAT 97
--- NOTE | 2023-08-13 16:02 | ED.GENADULT ---
HPI - General Adult General Chief complaint: Ear Stated complaint: ear Time Seen by Provider: 08/13/23 15:37 Source: patient Mode of arrival: ambulatory Limitations: no limitations History of Present Illness HPI narrative: This is a 57-year-old female With PMH of T2dm, psoriasis, CHF who presents to the ED with chief complaint of from pain to the right ear pain for the past week. she presents for evaluation today because last night she had an episode of bloody discharge from the ear. she is also describing serous fluid. Denies posterior your pain, fevers, chills, nausea, vomiting. Related Data Home Medications Medication Instructions Recorded Confirmed aspirin 81 mg tablet,delayed 81 mg PO DAILY 07/05/19 08/13/23 release (Adult Low Dose Aspirin) citalopram 20 mg tablet 20 mg PO DAILY 07/05/19 08/13/23 clopidogrel 75 mg tablet (Plavix) 75 mg PO DAILY 07/05/19 08/13/23 nitroglycerin 0.4 mg sublingual 0.4 mg sublingual Q5-15M PRN Chest 07/05/19 08/13/23 tablet (Nitrostat) Pain pantoprazole 40 mg tablet,delayed 40 mg PO DAILY 07/05/19 08/13/23 release glimepiride 4 mg tablet 4 mg PO BID 08/20/19 08/13/23 ropinirole 2 mg tablet 2 mg PO TID 08/20/19 08/13/23 metoprolol tartrate 25 mg tablet 25 mg PO BID 10/12/19 08/13/23 rosuvastatin 20 mg tablet 20 mg PO DAILY 08/03/20 08/13/23 insulin glargine 100 unit/mL (3 45 unit subcut HS 07/08/22 08/13/23 mL) subcutaneous pen (Basaglar KwikPen U-100 Insulin) sitagliptin phosphate 100 mg 100 mg PO DAILY 07/08/22 08/13/23 tablet (Januvia) Allergies Allergy/AdvReac Type Severity Reaction Status Date / Time azithromycin AdvReac Severe Gastrointestinal Verified 08/13/23 15:26 Upset Review of Systems Review of Systems: All systems as dictated in HPI [facility] Past Medical History Medical History Anemia With history of blood transfusion. AV block Status post atrial pacemaker insertion. CHF (congestive heart failure) Coronary artery disease (~11/2017) Cardiac catheterization per Dr. Montalvo demonstrated distal 1st diagonal vessel total occlusion status post angioplasty and stent placement. Depression with anxiety Diabetic peripheral neuropathy Eczema Gastroesophageal reflux disease Hyperlipidemia Hypertension Insulin dependent type 2 diabetes mellitus Hemoglobin A1c was 9.8% in July 2019. Myocardial infarction x2 Osteoarthritis Peripheral neuropathy Previous known suicide attempt Restless leg syndrome Seasonal allergies Septal defect Patient on certain whether this was an ASD or VSD repair, done at the age of 39. Valvular heart disease Status post mitral valve repair. ADARSH September 18, 2019 showed moderate to severe mitral valve calcification with decreased movement and evidence of moderate mitral valve regurgitation. Vitamin D deficiency Surgical History Surgical History History of History of cardiac catheterization (~11/2017) Status post angioplasty and stent placement to distal 1st diagonal per Dr. Montalvo. History of permanent cardiac pacemaker placement x2 History of sternectomy Repaired hole in heart, patient unsure whether it was in atrial or ventricular septal defect. Family History Family History Mother Peripheral vascular disease Sibling Diabetes mellitus Social History Social History Social History: The patient currently lives in her own home with her boyfriend. She is on disability. She is a lifelong nonsmoker and denies alcohol and drug abuse. She designates her daughter, Preethi Rai, as her surrogate decision maker and she wishes to be a full code. The patient has 1 biological child and then has adopted another child. The patient desires to be a full code. Smoking status: Never smoker
== END 2023-08-13 16:30 | disposition home or self-care (01) ==
PROVIDERS: Emergency Provider Physician Assistant
DX: H60.501 Unspecified acute noninfective otitis externa, right ear (principal); I11.0 Hypertensive heart disease with heart failure; I50.9 Heart failure, unspecified; E11.9 Type 2 diabetes mellitus without complications; I25.10 Atherosclerotic heart disease of native coronary artery without angina pectoris; E78.5 Hyperlipidemia, unspecified; Z79.82 Long term (current) use of aspirin; Z79.899 Other long term (current) drug therapy; Z79.4 Long term (current) use of insulin
CPT/HCPCS: 99283

== ENCOUNTER 2023-10-19 11:48 | Emergency (ER) | payer OTHER, SELFPAY ==
[2023-10-19 11:54] VITALS: BP 134/98; PULSE 96; RESP 16; TEMP 36.6; O2SAT 99
--- NOTE | 2023-10-19 18:42 | PC.NURSE ---
Not present when called for in lobby.
== END 2023-10-19 18:42 | disposition left against medical advice (07) ==
LOC: ANHED 18:45
DX: M54.50 Low back pain, unspecified (principal)
CPT/HCPCS: 99199

== ENCOUNTER 2023-10-20 09:58 | Emergency (ER) | payer OTHER, SELFPAY ==
[2023-10-20] VITALS (9 sets, daily range): BP systolic 112–140; BP diastolic 57–79; PULSE 72–93; RESP 12–20; TEMP 36.4–36.6; O2SAT 90–99
--- NOTE | ~2023-10-20 | CT_ITS ---
EXAMINATION: CT abdomen pelvis w con INDICATION: Generalized abdominal pain TECHNIQUE: Computed tomographic images of the abdomen and pelvis were obtained after the administrati on of 100 cc of Omnipaque 350 intravenous contrast. The dose-length product (DLP) was 844.43 mGy-cm. Automated exposure control and iterative reconstruction technique were employed. COMPARISON: 04/11/2022 FINDINGS: Minimal dependent atelectasis is present in the lung bases. The heart size is normal. Stabl e nodules of the visualized lung bases are considered benign given the lack of interval change. The l iver is diffusely low in attenuation when compared with the spleen, consistent with hepatic steatosis . Subtle hypoattenuating areas of the spleen could reflect prior infarction. The pancreas, gallbladde r, and adrenal glands are normal. There are areas of cortical scarring of the kidneys, left greater t reilly right. No pathologically enlarged abdominal or pelvic lymph nodes are identified. No free intrape ritoneal gas or evidence of bowel obstruction. There is mild lumbar spondylosis. IMPRESSION: 1. No CT correlate for the patient's symptoms. Reviewed, dictated and finalized at location [facility]. [facility] REGULATING TECHNICIAN
--- NOTE | 2023-10-20 12:11 | ED.ABDPAIN ---
HPI - Abdominal Pain General Chief Complaint: Abdominal Pain Stated Complaint: CHRONIC BACK PAIN, ABD PAIN FOR 1WK Time Seen by Provider: 10/20/23 12:06 History of Present Illness HPI narrative: 57 years old white female came from home with her by a car complaining of chronic lower back pain got worse over 1-2 weeks ago. Also complaining of diffuse abdominal pain and bloating, cramps started 2 weeks. Patient reports not taking her medication at home, for while. History of diabetes, hypertension, hyperlipidemia, mi x3, CABG, currently on aspirin, does not smoke or drink. Related Data Home Medications Medication Instructions Recorded Confirmed aspirin 81 mg tablet,delayed 81 mg PO DAILY 07/05/19 08/13/23 release (Adult Low Dose Aspirin) citalopram 20 mg tablet 20 mg PO DAILY 07/05/19 08/13/23 clopidogrel 75 mg tablet (Plavix) 75 mg PO DAILY 07/05/19 08/13/23 nitroglycerin 0.4 mg sublingual 0.4 mg sublingual Q5-15M PRN Chest 07/05/19 08/13/23 tablet (Nitrostat) Pain pantoprazole 40 mg tablet,delayed 40 mg PO DAILY 07/05/19 08/13/23 release glimepiride 4 mg tablet 4 mg PO BID 08/20/19 08/13/23 ropinirole 2 mg tablet 2 mg PO TID 08/20/19 08/13/23 metoprolol tartrate 25 mg tablet 25 mg PO BID 10/12/19 08/13/23 rosuvastatin 20 mg tablet 20 mg PO DAILY 08/03/20 08/13/23 insulin glargine 100 unit/mL (3 45 unit subcut HS 07/08/22 08/13/23 mL) subcutaneous pen (Basaglar KwikPen U-100 Insulin) sitagliptin phosphate 100 mg 100 mg PO DAILY 07/08/22 08/13/23 tablet (Januvia) Allergies Allergy/AdvReac Type Severity Reaction Status Date / Time azithromycin AdvReac Severe Gastrointestinal Verified 08/13/23 15:26 Upset Review of Systems Review of Systems: All systems reviewed & are unremarkable except as noted in HPI and below PMFSH Past Medical History Medical History Anemia With history of blood transfusion. AV block Status post atrial pacemaker insertion. CHF (congestive heart failure) Coronary artery disease (~11/2017) Cardiac catheterization per Dr. Montalvo demonstrated distal 1st diagonal vessel total occlusion status post angioplasty and stent placement. Depression with anxiety Diabetic peripheral neuropathy Eczema Gastroesophageal reflux disease Hyperlipidemia Hypertension Insulin dependent type 2 diabetes mellitus Hemoglobin A1c was 9.8% in July 2019. Myocardial infarction x2 Osteoarthritis Peripheral neuropathy Previous known suicide attempt Restless leg syndrome Seasonal allergies Septal defect Patient on certain whether this was an ASD or VSD repair, done at the age of 39. Valvular heart disease Status post mitral valve repair. ADARSH September 18, 2019 showed moderate to severe mitral valve calcification with decreased movement and evidence of moderate mitral valve regurgitation. Vitamin D deficiency Surgical History Surgical History History of History of cardiac catheterization (~11/2017) Status post angioplasty and stent placement to distal 1st diagonal per Dr. Montalvo. History of permanent cardiac pacemaker placement x2 History of sternectomy Repaired hole in heart, patient unsure whether it was in atrial or ventricular septal defect. Family History Family History Mother Peripheral vascular disease Sibling Diabetes mellitus Social History Social History Social History: The patient currently lives in her own home with her boyfriend. She is on disability. She is a lifelong nonsmoker and denies alcohol and drug abuse. She designates her daughter, Preethi Rai, as her surrogate decision maker and she wishes to be a full code. The patient has 1 biological child and then has adopted another child. The patient desires to be a full code. Smoking status:
[2023-10-20] MEDS: SODIUM CHLORIDE 0.9% IV 1,000 ML 999 ML IV CONT (12:45)
[2023-10-20] MEDS: HYDROmorphone HCL INJ (*CRX) 1 MG/ML SYR 0.5 MG IV PUSH (12:45)
[2023-10-20] MEDS: ONDANSETRON INJ 4 MG/2 ML VIAL IV PUSH (12:45)
[2023-10-20 13:02] LABS: Basophils Percent Auto 0.6 % (0.2-1.2); Eosinophils Percent Auto 0.7 % (0-4.4); Hematocrit 47.4 % (37.0-47.0); Immature Granulocyte Absolute 0.01 K/mm3 (0.00-0.031); Immature Granulocyte Percent A 0.2 % (0-0.5); Mean Corpuscular HGB Conc 33.8 g/dl (32-36); Mean Corpuscular Hemoglobin 29.3 pg (26-34); Mean Corpuscular Volume 86.7 fl (80-100); Mean Platelet Volume 10.7 fl (7.4-10.4); Monocytes Absolute Auto 0.4 K/mm3 (0.1-0.6); Monocytes Percent Auto 7.9 % (2.6-8.5); Neutrophils Absolute Auto 3.7 K/mm3 (1.3-6.7); Neutrophils Percent Auto 68.6 % (45.5-73.1); Platelet Count Result 259 k/mm3 (150-375); Red Blood Count 5.47 M/mm3 (4.2-5.4); Red Cell Distribution Width 12.8 % (11.5-14.5); White Blood Count 5.5 K/mm3 (4.5-10.0)
[2023-10-20 13:15] LABS: Alanine Aminotransferase 20 U/L (6-35); Albumin Level 4.1 g/dL (3.5-5.1); Alkaline Phosphatase 133 U/L (38-126); Anion Gap 9 mmol/L (8-16); Aspartate Amino Transferase 23 U/L (14-36); Bilirubin,Total 1.1 mg/dL (0.2-1.3); Blood Urea Nitrogen 13 mg/dL (7-17); Calcium 9.2 mg/dL (8.4-10.2); Carbon Dioxide 25 mmol/L (22-30); Chloride 101 mmol/L (98-107); Estimated CRCL calculation 60 ml/min; Estimated Glomerular Filt Rate > 60; Glucose 264 mg/dL (65-110); Lactic Acid Reflex 1.6 mmol/L (0.7-2.0); Lipase 48 U/L (23-300); Potassium 4.1 mmol/L (3.4-5.0); Sodium 135 mmol/L (137-145)
[2023-10-20 13:17] LABS: CRP 0.8 mg/dL (<1.0)
[2023-10-20 13:32] LABS: Erythrocyte Sedimentation Rate 14 mm/hr (0-20)
[2023-10-20 15:05] LABS: Appearance Urine Clear (Clear); Bacteria Urine 1+ /hpf; Bilirubin Urine Negative (Negative); Blood Urine Negative (Negative); Color Urine Yellow (Yellow); Glucose Urine UA 1+ mg/dL (Negative); Ketones Urine Negative (Negative); Leukocyte Esterase Ur Negative LEU/UL (Negative); Need Manual Microscopic Reviewed; Nitrate Urine Negative (Negative); Non Pathogenic Casts 0-2; Protein Urine Trace mg/dL (Negative); RBC Urine 21-50 /hpf (0-2); Squamous Epithelial Cell Urine Occasional /hpf (Few); Urobilinogen Urine 0.2 mg/dL (<2.0)
[2023-10-20 15:07] LABS: Specific Grav Ur 1.052 (1.001-1.035)
[2023-10-20 15:08] LABS: Add Urine Microscopic? YES
== END 2023-10-20 15:53 | disposition home or self-care (01) ==
PROVIDERS: Physician Assistant; Emergency Provider Emergency Medicine
DX: E11.65 Type 2 diabetes mellitus with hyperglycemia (principal); Z79.4 Long term (current) use of insulin; R31.9 Hematuria, unspecified; M54.50 Low back pain, unspecified; R10.84 Generalized abdominal pain; D64.9 Anemia, unspecified; I11.0 Hypertensive heart disease with heart failure; I50.9 Heart failure, unspecified; I25.10 Atherosclerotic heart disease of native coronary artery without angina pectoris; F32.A Depression, unspecified; F41.9 Anxiety disorder, unspecified; K21.9 Gastro-esophageal reflux disease without esophagitis; I25.2 Old myocardial infarction; M19.90 Unspecified osteoarthritis, unspecified site
CPT/HCPCS: 36415; 74177; 80053; 81001; 83605; 83690; 85025; 85652; 86140; 87086; 96361; 96374; 96375; 99284; J1170; J2405; J7030; Q9967

== ENCOUNTER 2023-12-17 15:52 | Emergency (ER) | payer OTHER, SELFPAY ==
--- NOTE | ~2023-12-17 | CT_ITS ---
EXAMINATION: CT brain wo con DATE: 12/17/2023 16:25 INDICATION: Fall TECHNIQUE: Computed tomography (CT) of the head was performed without intravenous contrast. Sagittal and coronal reconstructions were performed. The mA was adjusted according to patient size. Iterative reconstruction technique was employed. The dose-length product was 681.00 mGy-cm. COMPARISON: None FINDINGS: No fracture. No acute intracranial hemorrhage, acute infarction or abnormal extra axial fluid collect ion. 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 There is mild scattered white matter hypoa ttenuation consistent with chronic small vessel ischemic disease. Ventricles are normal and symmetri c. No mass/mass effect. The orbits, paranasal sinuses and mastoid air cells are normal. IMPRESSION: 1. No fracture or acute intracranial process. 2. Small old infarcts at the bilateral cerebellar hemispheres and mild scattered white matter hypoatt enuation consistent with chronic small vessel ischemic disease. Reviewed, dictated and finalized at location A. IMPRESSION: 1. No fracture or acute intracranial process. 2. Small old infarcts at the bilateral cerebellar hemispheres and mild scattere d white matter hypoattenuation consistent with chronic small vessel ischemic di sease.
--- NOTE | ~2023-12-17 | XR_ITS ---
EXAMINATION: XR chest 2V DATE: 12/17/2023 16:32 INDICATION: Fall TECHNIQUE: PA and lateral views of the chest were obtained. COMPARISON: Chest radiograph dated 07/07/2022 FINDINGS: The lungs remain clear with no focal airspace opacities, pulmonary edema, pleural effusion or pneumot horax. Mild cardiomegaly. Median sternotomy wires and mediastinal surgical clips are seen, likely fro m prior coronary artery bypass grafting. Cardiac pacemaker with epicardial pacemaker leads projecting over the anterior wall of the right atrium and inferior wall of the right ventricle. Mild to moderat e thoracic spondylosis with mild anterior wedging of a midthoracic vertebral body. IMPRESSION: 1. Mild cardiomegaly. No acute cardiopulmonary disease. Reviewed, dictated and finalized at location A.
[2023-12-17 15:55] VITALS: BP 150/84; PULSE 86; RESP 16; TEMP 36.1; O2SAT 97
--- NOTE | 2023-12-17 16:14 | ECG_ITS ---
SEE SCANNED COPY FOR CONFIRMED REPORT MTDD
--- NOTE | 2023-12-17 16:15 | ED.FALL ---
HPI - Fall General Chief Complaint: Fall <Ana Holcomb PA-C - Last Filed: 12/17/23 16:24> Stated Complaint: fall <Ana Holcomb PA-C - Last Filed: 12/17/23 16:24> Time Seen by Provider: 12/17/23 16:06 <Ana Holcomb PA-C - Last Filed: 12/17/23 16:24> Focused HPI: 58-year-old female with a history of TIA, hypertension, type 2 diabetes, CKD stage 3, hypertension, hyperlipidemia, CAD, MVR presents to emergency department for a fall that occurred prior to arrival. Patient states she was walking with her grandkids when she all of a sudden felt ?off? and fell to the ground. She did not lose consciousness or hit her head but does state that she felt very weird at the time of the fall. She is unable to articulate what this means. She denies chest pain or shortness of breath, vision changes or focal numbness or weakness. States she landed on her buttock from the fall but is not currently complaining of any pain. She does have a pacemaker in place and states this is because the ?bottom of my heart does not work GENERAL: Well-appearing, well-nourished, and in no acute distress. HEAD: Normocephalic, atraumatic. CHEST: Clear to auscultation. ?No respiratory distress. HEART: Regular rate and rhythm.? NEURO: ?Alert and oriented x3. Patient screened in triage and initial orders placed.? ?Additional care and disposition to be based upon?diagnostic testing and treatment. <Ana Holcomb PA-C - Last Filed: 12/17/23 16:24> History of Present Illness HPI Narrative: 58-year-old female presents emergency department for evaluation for near syncope. Patient was also found to be hyperglycemic. Patient states she does not follow her blood sugars closely <Jeronimo Randolph MD - Last Filed: 12/25/23 08:19> Related Data Home Medications: Home Medications Medication Instructions Recorded Confirmed aspirin 81 mg tablet,delayed 81 mg PO DAILY 07/05/19 08/13/23 release (Adult Low Dose Aspirin) citalopram 20 mg tablet 20 mg PO DAILY 07/05/19 08/13/23 clopidogrel 75 mg tablet (Plavix) 75 mg PO DAILY 07/05/19 08/13/23 nitroglycerin 0.4 mg sublingual 0.4 mg sublingual Q5-15M PRN Chest 07/05/19 08/13/23 tablet (Nitrostat) Pain pantoprazole 40 mg tablet,delayed 40 mg PO DAILY 07/05/19 08/13/23 release glimepiride 4 mg tablet 4 mg PO BID 08/20/19 08/13/23 ropinirole 2 mg tablet 2 mg PO TID 08/20/19 08/13/23 metoprolol tartrate 25 mg tablet 25 mg PO BID 10/12/19 08/13/23 rosuvastatin 20 mg tablet 20 mg PO DAILY 08/03/20 08/13/23 insulin glargine 100 unit/mL (3 45 unit subcut HS 07/08/22 08/13/23 mL) subcutaneous pen (Basaglar KwikPen U-100 Insulin) sitagliptin phosphate 100 mg 100 mg PO DAILY 07/08/22 08/13/23 tablet (Januvia) <Ana Holcomb PA-C - Last Filed: 12/17/23 16:24> Allergies/Adverse Reactions: Allergies Allergy/AdvReac Type Severity Reaction Status Date / Time azithromycin AdvReac Severe Gastrointestinal Verified 08/13/23 15:26 Upset <Ana Holcomb PA-C - Last Filed: 12/17/23 16:24> Review of Systems Review of Systems: All systems reviewed & are unremarkable except as noted in HPI and below <Jeronimo Randolph MD - Last Filed: 12/25/23 08:19> [facility] Past Medical History Medical History: Medical History Anemia With history of blood transfusion. AV block Status post atrial pacemaker insertion. CHF (congestive heart failure) Coronary artery disease (~11/2017) Cardiac catheterization per Dr. Montalvo demonstrated distal 1st diagonal vessel total occlusion status post angioplasty and stent placement. Depression with anxiety Diabetic peripheral neuropathy Eczema Gastroesophageal reflux disease Hyperlipidemia Hypertension Insulin dependent type 2 diabetes mellitus Hemoglobin A1c was 9.8% in July 2019. Myocardial infarction x2 Osteoarthritis Peripheral neuropathy Previous known suicide attempt Restless leg syndrome Seasonal allergies Septal defect Patient on certain whether this was an ASD or VSD repair, done at the age of 39. Valvular heart disease Status post mitral valve repair. ADARSH September 18, 2019 showed moderate to severe mitral valve calcification with decreased movement and evidence of moderate mitral valve regurgitation. Vitamin D deficiency <Ana Holcomb PA-C - Last Filed: 12/17/23 16:24> Surgical History Surgical History: Surgical History History of History of cardiac catheterization (~11/2017) Status post angioplasty and stent placement to distal 1st diagonal per Dr. Montalvo. History of permanent cardiac pacemaker placement x2 History of sternectomy Repaired hole in heart, patient unsure whether it was in atrial or ventricular septal defect. <NYA Hernandez Last Filed: 12/17/23 16:24> Family History Family History: Family History Mother Peripheral vascular disease Sibling Diabetes mellitus <NYA Hernandez Last Filed: 12/17/23 16:24> Social History Social History: Social History Social History: The patient currently lives in her own home with her boyfriend. She is on disability. She is a lifelong nonsmoker and denies alcohol and drug abuse. She designates her daughter, Preethi Rai, as her surrogate decision maker and she wishes to be a full code. The patient has 1 biological child and then has adopted another child. The patient desires to be a full code. Smoking status: Never smoker Second hand tobacco smoke exposure: No Alcohol intake: never Substance use: never Substance use type: does not use Lack of Transportation: No Lack of Food: Never True Current Housing: I Have Housing Concerned About Future Housing: No Difficulty Paying Gas/Electric Bills: YES Difficulty Paying for Meds: No Currently Unemployed: No Education: High School Diploma/GED Difficulty w/ Childcare or Family Care: No Gender identity (if verbalized by the patient): Female Spiritual care concerns: No Agree to blood products: Yes <NYA Hernandez Last Filed: 12/17/23 16:24> Exam Narrative: APPEARANCE: Well appearing, no pain, no distress, well-nourished. HEAD: normocephalic, atraumatic. EYES: PERRLA/EOMI, conjunctivae clear. NOSE: Normal no drainage EARS:TMS clear with good light reflex. THROAT: Pharynx clear, no exudate. NECK: Supple. No adenopathy, no masses. RESPIRATORY: Airway patent, respirations nonlabored. Clear to auscultation bilaterally, no rales, rhonchi, wheezing. CARDIOVASCULAR: Regular rate and rhythm without murmurs rubs or gallops. ABDOMINAL: Soft, nontender, nondistended, normal bowel sounds MUSCULOSKELETAL: Moves all extremities. Strength/ROM intact, No edema, No calf tenderness. NEURO: Alert. Cranial nerves II through XII intact. Good gait. Good coordination SKIN: Warm, dry. Normal Color <Jeronimo Randolph MD - Last Filed: 12/25/23 08:19> Course Course Emergency Course: Patient felt improved with treatment and patient was requesting discharge home. <Jeronimo Randolph MD - Last Filed: 12/25/23 08:19> Vital Signs Vital signs: Vital Signs Temperature 97.0 F L 12/17/23 15:55 Pulse Rate 86 12/17/23 15:55 Respiratory Rate 16 12/17/23 15:55 Blood Pressure 150/84 H 12/17/23 15:55 Pulse Oximetry 97 12/17/23 15:55 Oxygen Delivery Room Air 12/17/23 15:55 Temperature 97.9 F 12/17/23 18:32 Pulse Rate 85 12/17/23 20:51 Respiratory Rate 16 12/17/23 20:51 Blood Pressure 118/68 12/17/23 20:51 Pulse Oximetry 98 12/17/23 20:51 Oxygen Delivery Room Air 12/17/23 15:55 <Ana Holcomb PA-C - Last Filed: 12/17/23 16:24> Vital Signs Temperature 97.0 F L 12/17/23 15:55 Pulse Rate 86 12/17/23 15:55 Respiratory Rate 16 12/17/23 15:55 Blood Pressure 150/84 H 12/17/23 15:55 Pulse Oximetry 97 12/17/23 15:55 Oxygen Delivery Room Air 12/17/23 15:55 Temperature 97.9 F 12/17/23 18:32 Pulse Rate 85 12/17/23 20:51 Respiratory Rate 16 12/17/23 20:51 Blood Pressure 118/68 12/17/23 20:51 Pulse Oximetry 98 12/17/23 20:51 Oxygen Delivery Room Air 12/17/23 15:55 <Jeronimo Randolph MD - Last Filed: 12/25/23 08:19> MDM - Fall MDM Narrative Medical decision making narrative: 58-year-old female history hyperglycemia presented emergency department for evaluation after having a near syncopal episode. Patient had negative imaging and patient's blood sugars were back to her baseline. Patient was encouraged to have better control over blood sugars. All questions concerns were addressed patient was well-appearing at time of discharge. <Jeronimo Randolph MD - Last Filed: 12/25/23 08:19> Lab Data Result diagrams: 12/17/23 16:47 12/17/23 16:47 <Ana Holcomb PA-C - Last Filed: 12/17/23 16:24> Labs: Lab Results 12/17/23 12/17/23 12/17/23 Range/Units 16:47 19:01 20:04 WBC 6.5 (4.5-10.0) K/mm3 RBC 5.55 H (4.2-5.4) M/mm3 Hgb 16.4 H (12.0-15.0) g/dL Hct 47.5 H (37.0-47.0) % MCV 85.6 (80-100) fl MCH 29.5 (26-34) pg MCHC 34.5 (32-36) g/dl RDW 12.6 (11.5-14.5) % Plt Count 244 (150-375) k/mm3 MPV 10.8 H (7.4-10.4) fl Immature Gran % (Auto) 0.3 (0-0.5) % Neut % (Auto) 76.4 H (45.5-73.1) % Lymph % (Auto) 16.0 L (18.3-44.2) % [place] % (Auto) 6.3 (2.6-8.5) % Eos % (Auto) 0.5 (0-4.4) % Baso % (Auto) 0.5 (0.2-1.2) % Lymph # (Auto) 1.04 (0.9-3.2) K/mm3 [place] # (Auto) 0.4 (0.1-0.6) K/mm3 Eos # (Auto) 0.0 (0-0.3) K/mm3 Baso # (Auto) 0.0 (0.0-0.1) K/mm3 Abs Immat Gran (auto) 0.02 (0.00-0.031) K/mm3 Absolute Neuts (auto) 5.0 (1.3-6.7) K/mm3 Absolute Nucleated RBC 0.000 (0.0-0.012) K/mm3 Nucleated RBC % 0.0 (0.0-0.2) % PT 12.4 (11.1-14.7) Seconds INR 0.9 APTT 25.8 (22.3-36.8) Seconds Sodium 133 L (137-145) mmol/L Potassium 4.7 (3.4-5.0) mmol/L Chloride 99 (98-107) mmol/L Carbon Dioxide 25 (22-30) mmol/L Anion Gap 9 (4-12) mmol/L BUN 23 H D (7-17) mg/dL Creatinine 1.10 H (0.7-1.0) mg/dL Estim Creat Clear Calc 45 ml/min Estimated GFR 51 L (59 - ) Glucose 523 H* (65-110) mg/dL POC Capillary Glucose 414 H (65-105) mg/dl Calcium 9.8 (8.4-10.2) mg/dL Total Bilirubin 0.9 (0.2-1.3) mg/dL AST 21 (14-36) U/L ALT 22 (6-35) U/L Alkaline Phosphatase 177 H (38-126) U/L Troponin I < 0.012 < 0.012 (0.000-0.034) ng/mL Total Protein 8.0 (6.3-8.2) g/dL Albumin 4.8 (3.5-5.1) g/dL <Ana Holcomb PA-C - Last Filed: 12/17/23 16:24> Lab Results 12/17/23 12/17/23 12/17/23 Range/Units 16:47 19:01 20:04 WBC 6.5 (4.5-10.0) K/mm3 RBC 5.55 H (4.2-5.4) M/mm3 Hgb 16.4 H (12.0-15.0) g/dL Hct 47.5 H (37.0-47.0) % MCV 85.6 (80-100) fl MCH 29.5 (26-34) pg MCHC 34.5 (32-36) g/dl RDW 12.6 (11.5-14.5) % Plt Count 244 (150-375) k/mm3 MPV 10.8 H (7.4-10.4) fl Immature Gran % (Auto) 0.3 (0-0.5) % Neut % (Auto) 76.4 H (45.5-73.1) % Lymph % (Auto) 16.0 L (18.3-44.2) % [place] % (Auto) 6.3 (2.6-8.5) % Eos % (Auto) 0.5 (0-4.4) % Baso % (Auto) 0.5 (0.2-1.2) % Lymph # (Auto) 1.04 (0.9-3.2) K/mm3 [place] # (Auto) 0.4 (0.1-0.6) K/mm3 Eos # (Auto) 0.0 (0-0.3) K/mm3 Baso # (Auto) 0.0 (0.0-0.1) K/mm3 Abs Immat Gran (auto) 0.02 (0.00-0.031) K/mm3 Absolute Neuts (auto) 5.0 (1.3-6.7) K/mm3 Absolute Nucleated RBC 0.000 (0.0-0.012) K/mm3 Nucleated RBC % 0.0 (0.0-0.2) % PT 12.4 (11.1-14.7) Seconds INR 0.9 APTT 25.8 (22.3-36.8) Seconds Sodium 133 L (137-145) mmol/L Potassium 4.7 (3.4-5.0) mmol/L Chloride 99 (98-107) mmol/L Carbon Dioxide 25 (22-30) mmol/L Anion Gap 9 (4-12) mmol/L BUN 23 H D (7-17) mg/dL Creatinine 1.10 H (0.7-1.0) mg/dL Estim Creat Clear Calc 45 ml/min Estimated GFR 51 L (59 - ) Glucose 523 H* (65-110) mg/dL POC Capillary Glucose 414 H (65-105) mg/dl Calcium 9.8 (8.4-10.2) mg/dL Total Bilirubin 0.9 (0.2-1.3) mg/dL AST 21 (14-36) U/L ALT 22 (6-35) U/L Alkaline Phosphatase 177 H (38-126) U/L Troponin I < 0.012 < 0.012 (0.000-0.034) ng/mL Total Protein 8.0 (6.3-8.2) g/dL Albumin 4.8 (3.5-5.1) g/dL <Jeronimo Randolph MD - Last Filed: 12/25/23 08:19> Discharge Plan Discharge Clinical Impression: Near syncope, Hyperglycemia <Ana Holcomb PA-C - Last Filed: 12/17/23 16:24> Patient Disposition: Home, Self-Care <Ana Holcomb PA-C - Last Filed: 12/17/23 16:24> Condition: Stable <Ana Holcomb PA-C - Last Filed: 12/17/23 16:24> Instructions: Antibiotic Form, Near Syncope (ED) <nAa Holcomb PA-C - Last Filed: 12/17/23 16:24> Additional Instructions: you need to have better control over your blood sugars. Drink plenty of fluids. Have close follow-up with your primary care physician for additional outpatient testing. If you have any worsening symptoms then please call or return to the emergency department <Ana Holcomb PA-C - Last Filed: 12/17/23 16:24> Prescriptions: No Action clopidogrel [Plavix] 75 mg Tablet 75 mg PO DAILY aspirin [Adult Low Dose Aspirin] 81 mg Tablet,Delayed Release (Dr/Ec) 81 mg PO DAILY citalopram 20 mg Tablet 20 mg PO DAILY pantoprazole 40 mg Tablet,Delayed Release (Dr/Ec) 40 mg PO DAILY nitroglycerin [Nitrostat] 0.4 mg Tablet, Sublingual 0.4 mg SUBLINGUAL Q5-15M PRN (Reason: Chest Pain) ciprofloxacin-dexamethasone 0.3-0.1 % drops,suspension 4 drp RIGHT EAR Q12H 7 Days Qty: 7.5 0RF ropinirole 2 mg tablet 2 mg PO TID glimepiride 4 mg tablet 4 mg PO BID metoprolol tartrate 25 mg tablet 25 mg PO BID rosuvastatin 20 mg Tablet 20 mg PO DAILY Januvia 100 mg tablet 100 mg PO DAILY insulin glargine [Basaglar KwikPen U-100 Insulin] 100 unit/mL (3 mL) insulin pen 45 unit SUBCUT HS lisinopril 5 mg Tablet 5 mg PO DAILY 30 Days Qty: 30 0RF nitrofurantoin monohyd/m-cryst [Macrobid] 100 mg capsule 100 mg PO Q12H 5 Days Qty: 10 0RF Rx Instructions: must administer with a meal/food <Ana Holcomb PA-C - Last Filed: 12/17/23 16:24> Follow-up/Referrals: UNKNOWN,DOCTOR [Non-Staff] - <Ana Holcomb PA-C - Last Filed: 12/17/23 16:24>
[2023-12-17 16:54] LABS: Basophils Percent Auto 0.5 % (0.2-1.2); Eosinophils Percent Auto 0.5 % (0-4.4); Hematocrit 47.5 % (37.0-47.0); Hemoglobin 16.4 g/dL (12.0-15.0); Immature Granulocyte Absolute 0.02 K/mm3 (0.00-0.031); Immature Granulocyte Percent A 0.3 % (0-0.5); Lymphocytes Absolute Auto 1.04 K/mm3 (0.9-3.2); Mean Corpuscular HGB Conc 34.5 g/dl (32-36); Mean Corpuscular Hemoglobin 29.5 pg (26-34); Mean Corpuscular Volume 85.6 fl (80-100); Mean Platelet Volume 10.8 fl (7.4-10.4); Monocytes Absolute Auto 0.4 K/mm3 (0.1-0.6); Monocytes Percent Auto 6.3 % (2.6-8.5); Neutrophils Percent Auto 76.4 % (45.5-73.1); Platelet Count Result 244 k/mm3 (150-375); Red Blood Count 5.55 M/mm3 (4.2-5.4); Red Cell Distribution Width 12.6 % (11.5-14.5); White Blood Count 6.5 K/mm3 (4.5-10.0)
[2023-12-17 17:05] LABS: INR 0.9; Prothrombin Time 12.4 Seconds (11.1-14.7)
[2023-12-17 17:06] LABS: Partial Thromboplastin Time 25.8 Seconds (22.3-36.8)
[2023-12-17 17:12] LABS: Alanine Aminotransferase 22 U/L (6-35); Albumin Level 4.8 g/dL (3.5-5.1); Alkaline Phosphatase 177 U/L (38-126); Anion Gap 9 mmol/L (4-12); Aspartate Amino Transferase 21 U/L (14-36); Bilirubin,Total 0.9 mg/dL (0.2-1.3); Blood Urea Nitrogen 23 mg/dL (7-17); Calcium 9.8 mg/dL (8.4-10.2); Carbon Dioxide 25 mmol/L (22-30); Chloride 99 mmol/L (98-107); Estimated CRCL calculation 45 ml/min; Estimated Glomerular Filt Rate 51; Glucose 523 mg/dL (65-110); Potassium 4.7 mmol/L (3.4-5.0); Sodium 133 mmol/L (137-145)
[2023-12-17 17:18] LABS: Troponin I < 0.012 ng/mL (0.000-0.034)
[2023-12-17] MEDS: SODIUM CHLORIDE 0.9% IV 1,000 ML 999 ML IV CONT (18:00)
[2023-12-17] MEDS: INSULIN HUMAN REGULAR (*BKC) 100 UNITS/ML 8 UNITS IV PUSH (18:01)
[2023-12-17 18:05] VITALS: BP 135/80; PULSE 82; RESP 16; TEMP 36.6; O2SAT 98
[2023-12-17 18:16] VITALS: BP 142/92; PULSE 80; RESP 18; O2SAT 99
[2023-12-17 18:32] VITALS: BP 145/91; PULSE 82; RESP 20; TEMP 36.6; O2SAT 100
[2023-12-17 19:04] LABS: Glucose Point of Care 414 mg/dl (65-105)
[2023-12-17 20:37] LABS: Troponin I < 0.012 ng/mL (0.000-0.034)
[2023-12-17 20:51] VITALS: BP 118/68; PULSE 85; RESP 16; O2SAT 98
== END 2023-12-17 20:52 | disposition home or self-care (01) ==
PROVIDERS: Physician Assistant; Emergency Provider Emergency Medicine
DX: R55 Syncope and collapse (principal); E11.65 Type 2 diabetes mellitus with hyperglycemia; E11.22 Type 2 diabetes mellitus with diabetic chronic kidney disease; I13.0 Hypertensive heart and chronic kidney disease with heart failure and stage 1 through stage 4 chronic kidney disease, or unspecified chronic kidney disease; N18.30 Chronic kidney disease, stage 3 unspecified; I50.9 Heart failure, unspecified; I34.0 Nonrheumatic mitral (valve) insufficiency; I25.2 Old myocardial infarction; E11.42 Type 2 diabetes mellitus with diabetic polyneuropathy; E55.9 Vitamin D deficiency, unspecified; G25.81 Restless legs syndrome; K21.9 Gastro-esophageal reflux disease without esophagitis; M19.90 Unspecified osteoarthritis, unspecified site; Z86.73 Personal history of transient ischemic attack (TIA), and cerebral infarction without residual deficits; Z95.0 Presence of cardiac pacemaker; Z86.2 Personal history of diseases of the blood and blood-forming organs and certain disorders involving the immune mechanism; Z79.4 Long term (current) use of insulin; Z79.84 Long term (current) use of oral hypoglycemic drugs; Z79.82 Long term (current) use of aspirin; Z79.02 Long term (current) use of antithrombotics/antiplatelets; W18.39XA Other fall on same level, initial encounter
CPT/HCPCS: 36415; 70450; 71046; 80053; 82948; 84484; 85025; 85610; 85730; 93005; 96361; 96374; 99284; J1815; J7030

== ENCOUNTER 2024-01-28 06:42 | Observation (INO) | payer OTHER, SELFPAY ==
[2024-01-28] VITALS (14 sets, daily range): BP systolic 142–166; BP diastolic 72–94; PULSE 78–91; RESP 16–22; TEMP 36.4–36.7; O2SAT 87–100
--- NOTE | 2024-01-28 | ECHO_ITS ---
Patient Info Name: Marlys Rai Age: 58 years : 1965 Gender: Female Ht: 60 in Wt: 174 lbs BSA: 1.86 m2 HR: 85 bpm BP: 156 / 74 mmHg Heart Rhythm: Sinus Rhythm Technical Quality: Fair Exam Date: 01/28/2024 1:15 PM Exam Location: Echo Lab Patient Status: Inpatient Admit Date: 01/28/2024 Staff Ordering Physician: Agustin Jansen APRN Corporate Human Resources Manager: Lisbeth Shin RDCS Attending Provider: Vincent Ramirez MD Referring Physician: Inderjit WYLIE; Exam Type: CA echo doppler color flow Study Info Indications - chf exacerbation Complete two-dimensional, color flow and Doppler transthoracic echocardiogram is performed with contrast to opacify the left ventricle and to improve the deliniation of the left ventricle endocardial borders. Contrast/Agitated Saline Contrast/Ag. Saline: Definity Amount: 2.00 ml Administered By: Lisbeth Shin RDCS Existing IV Access: Yes IV Access Condition: patent with no signs of infiltration Left Ventricular Outflow Tract Name Value Normal LVOT 2D LVOT Diameter 1.9 cm LVOT Doppler LVOT Peak Gradient 6 mmHg LVOT Mean Gradient 3 mmHg LVOT VTI 21 cm LVOT VTI/AV VTI Ratio 0.7 LVOT Stroke Volume 59 ml LVOT CO 5.1 l/min LVOT CI 2.7 l/min/m2 Pulmonic Valve Name Value Normal RVOT Doppler RVOT Peak Gradient 2 mmHg PV Doppler PV Peak Gradient 6 mmHg Mitral Valve Name Value Normal MV Doppler MV Peak Gradient 21 mmHg MV Mean Gradient 10 mmHg MV Decel [place] 1,351 cm/s2 MV PHT 33 ms MV Area (PHT) 6.7 cm2 4.0-5.0 MV Area (Cont Eq VTI) 1.0 cm2 MV Regurgitation Doppler MR Peak Gradient 154 mmHg MV Diastolic Function MV E Peak Velocity 152 cm/s MV A Peak Velocity 158 cm/s MV E/A 1.0 MV Decel Time 113 ms MV Annular TDI MV E/e' (Lateral) 12.2 <=8.0 Tricuspid Va
--- NOTE | ~2024-01-28 | XR_ITS ---
XR chest 1V portable 01/30/2024 09:16 Indication: CHF. Dyspnea. Procedure: AP portable chest Comparison: Comparison to multiple prior studies sequentially, with oldest reviewed study dated 12/18. Findings: Status post median sternotomy for CABG. Cardiomegaly. Right perihilar airspace disease whic h may reflect asymmetric edema or pneumonia. No significant effusion. No pneumothorax. Impression: 1: Right perihilar airspace disease may represent edema or pneumonia. 2: Cardiomegaly. Reviewed, dictated and finalized at location B. Impression: 1: Right perihilar airspace disease may represent edema or pneumonia. 2: Cardiomegaly.
--- NOTE | ~2024-01-28 | XR_ITS ---
Clinical Indication: Dyspnea PA and lateral views of the chest: Comparison: 12/17/2023 Findings: Small bilateral pleural effusions are present with mild to moderate bibasilar pulmonary luc ma pattern.. Cardiomediastinal silhouette is stable, with pacemaker. Bones and soft tissues are unre markable. Impression: Small bilateral pleural effusions with mild to moderate bibasilar pulmonary edema. Reviewed, dictated and finalized at location . Impression: Small bilateral pleural effusions with mild to moderate bibasilar pulmonary luc ma.
--- NOTE | 2024-01-28 06:51 | ECG_ITS ---
[facility] [address] Test Date: 2024-01-28 Pat Name: Marlys Rai Department: Room: Gender: F Practice Managers: Taco : 1965 Requested By: Wilfred Izaguirre Order Number: [id number] Vinod MD: Armando Goff D.O. Measurements Intervals [place] Rate: 80 P: 112 DC: 99 QRS: -50 QRSD: 142 T: 111 QT: 436 QTc: 505 Interpretive Statements ATRIAL SENSE- ELECTRONIC VENTRICULAR PACEMAKER BASELINE ARTIFACT- I, II, III, AVR, AVL, AVF, V1-V6 NO FURTHER INTERPRETATION IS POSSIBLE ATYPICAL ECG No previous ECG available for comparison Electronically Signed On 01-28-2024 09:21:58 CDT by Armando Goff D.O.
[2024-01-28 07:45] LABS: Basophils Absolute Auto 0.1 K/mm3 (0.0-0.1); Basophils Percent Auto 0.7 % (0.2-1.2); Eosinophils Absolute Auto 0.1 K/mm3 (0-0.3); Eosinophils Percent Auto 0.7 % (0-4.4); Hematocrit 42.4 % (37.0-47.0); Hemoglobin 13.7 g/dL (12.0-15.0); Immature Granulocyte Absolute 0.03 K/mm3 (0.00-0.031); Immature Granulocyte Percent A 0.4 % (0-0.5); Lymphocytes Absolute Auto 0.65 K/mm3 (0.9-3.2); Lymphocytes Percent Auto 8.5 % (18.3-44.2); Mean Corpuscular HGB Conc 32.3 g/dl (32-36); Mean Corpuscular Hemoglobin 29.1 pg (26-34); Mean Platelet Volume 10.6 fl (7.4-10.4); Monocytes Absolute Auto 0.5 K/mm3 (0.1-0.6); Monocytes Percent Auto 6.8 % (2.6-8.5); Neutrophils Absolute Auto 6.4 K/mm3 (1.3-6.7); Neutrophils Percent Auto 82.9 % (45.5-73.1); Platelet Count Result 240 k/mm3 (150-375); Red Blood Count 4.71 M/mm3 (4.2-5.4); Red Cell Distribution Width 13.6 % (11.5-14.5); White Blood Count 7.7 K/mm3 (4.5-10.0)
[2024-01-28 07:46] LABS: Alanine Aminotransferase 23 U/L (6-35); Albumin Level 4.1 g/dL (3.5-5.1); Alkaline Phosphatase 118 U/L (38-126); Anion Gap 6 mmol/L (4-12); Aspartate Amino Transferase 22 U/L (14-36); Bilirubin,Total 1.4 mg/dL (0.2-1.3); Blood Urea Nitrogen 20 mg/dL (7-17); Calcium 8.8 mg/dL (8.4-10.2); Carbon Dioxide 27 mmol/L (22-30); Chloride 107 mmol/L (98-107); Estimated CRCL calculation 54 ml/min; Estimated Glomerular Filt Rate > 60; Glucose 201 mg/dL (65-110); Potassium 4.2 mmol/L (3.4-5.0); Sodium 140 mmol/L (137-145)
[2024-01-28 07:55] LABS: NT Pro B Type Natriuretic Pept 1480 pg/mL (19.9-100)
[2024-01-28 07:57] LABS: Troponin I < 0.012 ng/mL (0.000-0.034)
[2024-01-28 08:13] LABS: Appearance Urine Clear (Clear); Bacteria Urine None Seen /hpf; Bilirubin Urine Negative (Negative); Blood Urine Negative (Negative); Color Urine Yellow (Yellow); Glucose Urine UA Negative (Negative); Ketones Urine Negative (Negative); Leukocyte Esterase Ur Negative LEU/UL (Negative); Nitrate Urine Negative (Negative); Non Pathogenic Casts 0-2; Protein Urine 2+ mg/dL (Negative); RBC Urine 0-2 /hpf (0-2); Specific Grav Ur 1.015 (1.001-1.035); Squamous Epithelial Cell Urine Occasional /hpf (Few); WBC Urine 0-5 /hpf (0-3)
[2024-01-28 08:14] LABS: Add Urine Microscopic? YES
--- NOTE | 2024-01-28 09:56 | ED.SOB ---
HPI - SOB/Dyspnea General Chief Complaint: Shortness of Breath/Dyspnea Stated Complaint: dyspnea, anxiety Time Seen by Provider: 01/28/24 07:04 Source: patient Mode of arrival: ambulatory Limitations: no limitations History of Present Illness HPI Narrative: 58-year-old with a history of hypertension, diabetes, status post valve replacement, status post pacemaker here with complaints of shortness of breath for past 1 week. Patient states that even with minimal ambulation she gets extremely short winded. She is alsostates cannot lay down flat. She has no previous history of COPD or asthma has CHF. Patient states that she has been taking her Lasix. She has not seen christian counselor for last several years has had christian counselor moved to [facility]. MD elicited complaint: shortness of breath Pertinent past history: congestive heart failure Onset (ago): week(s) (1) Timing: constant Exacerbating factors: movement Relieving factors: nothing Known history of: congestive heart failure Associated symptoms: denies other symptoms Treatment prior to arrival: none Related Data Home oxygen amount: none Home Medications Medication Instructions Recorded Confirmed aspirin 81 mg tablet,delayed 81 mg PO DAILY 07/05/19 08/13/23 release (Adult Low Dose Aspirin) citalopram 20 mg tablet 20 mg PO DAILY 07/05/19 08/13/23 clopidogrel 75 mg tablet (Plavix) 75 mg PO DAILY 07/05/19 08/13/23 nitroglycerin 0.4 mg sublingual 0.4 mg sublingual Q5-15M PRN Chest 07/05/19 08/13/23 tablet (Nitrostat) Pain pantoprazole 40 mg tablet,delayed 40 mg PO DAILY 07/05/19 08/13/23 release glimepiride 4 mg tablet 4 mg PO BID 08/20/19 08/13/23 ropinirole 2 mg tablet 2 mg PO TID 08/20/19 08/13/23 metoprolol tartrate 25 mg tablet 25 mg PO BID 10/12/19 08/13/23 rosuvastatin 20 mg tablet 20 mg PO DAILY 08/03/20 08/13/23 insulin glargine 100 unit/mL (3 45 unit subcut HS 07/08/22 08/13/23 mL) subcutaneous pen (Basaglar [place] U-100 Insulin) sitagliptin phosphate 100 mg 100 mg PO DAILY 07/08/22 08/13/23 tablet (Januvia) Allergies Allergy/AdvReac Type Severity Reaction Status Date / Time azithromycin AdvReac Severe Gastrointestinal Verified 08/13/23 15:26 Upset Review of Systems Review of Systems: All systems reviewed & are unremarkable except as noted in HPI and below Constitutional: Constitutional: Reports no additional constitutional complaints Eyes: Eyes: Reports no additional eye complaints ENT: Reports system reviewed and no additional complaints, except as documented Cardiovascular: Cardiovascular: Reports no additional cardiovascular complaints Respiratory: Respiratory: Reports as per HPI Gastrointestinal: Gastrointestinal: Reports no additional gastrointestinal complaints Musculoskeletal: Musculoskeletal: Reports no additional musculoskeletal complaints Neurologic: Reports system reviewed and no additional complaints, except as documented Psychiatric: Psychiatric: Reports no additional psychiatric complaints Hematologic/Lymphatic: Hematologic/Lymphatic: Reports no additional hematologic/lymphatic complaints [facility] Past Medical History Medical History Anemia With history of blood transfusion. AV block Status post atrial pacemaker insertion. CHF (congestive heart failure) Coronary artery disease (~11/2017) Cardiac catheterization per Dr. Montalvo demonstrated distal 1st diagonal vessel total occlusion status post angioplasty and stent placement. Depression with anxiety Diabetic peripheral neuropathy Eczema Gastroesophageal reflux disease Hyperlipidemia Hypertension Insulin dependent type 2 diabetes mellitus Hemoglobin A1c was 9.8% in July 2019. Myocardial infarction x2 Osteoarthritis Peripheral neuropathy Previous known suicide attempt Restless leg syndrome Seasonal allergies Septal defect Patient on certain whether this was an ASD or VSD repair, done at the
[2024-01-28] MEDS: FUROSEMIDE INJ 40 MG/4 ML VIAL IV PUSH ×2 (10:19→17:26)
--- NOTE | 2024-01-28 11:18 | ADMGEN ---
This patient, Marlys Rai, was admitted to Virtual Bed 3rd Floor-1. Patient/family oriented to hospital policies and general routines including ID bracelet, bed and alarms, visiting hours, pain management, procedures, bathroom and other care routines, personal items, smoking policy, room service/diet, and visiting hours. Information on how to activate the Rapid Response Team has been discussed. Patient/Family are encouraged to report perceived risks to care and to ask questions if they do not understand what they are told or what they should do.
[2024-01-28 12:19] LABS: Glucose Point of Care 119 mg/dl (65-105)
[2024-01-28] MEDS: PERFLUTREN LIPID MICROSPHERES 1.5 ML VIAL DILUTED TO 10 ML TOTAL VOLUME IV PUSH (13:30)
--- NOTE | 2024-01-28 13:57 | PM.IMHP ---
H&P: HPI History of Present Illness Date/Time: 01/28/24 13:57 Chief Complaint: Dyspnea on exertion Narrative: This is a 58-year-old female patient with extensive past cardiac history including NH x3, CAD, mitral valve repair, septal defect repair, pacemaker placement, hypertension, CHF hyperlipidemia who presented to the hospital today with significant dyspnea on exertion and orthopnea that has been ongoing for about 5-6 days and worsening each day. Patient states that she almost could not take it from her house to the nearby bus stop in order to get to the hospital today. Patient reports since her last admission about a month ago she has been compliant with her home medications where as previously she was not compliant. She has not seen cardiology in an unknown length of time and does not currently follow with anyone for her pacemaker despite the that she is due for battery change. Patient denies any fever or chills. She states that she does not take a water pill at home. She is on medication for her diabetes including 45 units of Basaglar, glimepiride and Januvia. She is also on medication for hypertension including lisinopril and metoprolol. She takes aspirin and Plavix. Patient reports her previous hemoglobin A1c was 13.8. Workup in the emergency department includes chest x-ray that shows small bilateral pleural effusions with mild to moderate bibasilar pulmonary edema. CBC and CMP are relatively unremarkable. Troponin negative x2. ProBNP 1480. Cardiology was consulted from the emergency department. Patient received IV Lasix and was admitted to [facility]. Review of Systems Review of Systems: All systems reviewed & are unremarkable except as noted in HPI and below [facility] Past Medical History Medical History Anemia With history of blood transfusion. AV block Status post atrial pacemaker insertion. CHF (congestive heart failure) Coronary artery disease (~11/2017) Cardiac catheterization per Dr. Montalvo demonstrated distal 1st diagonal vessel total occlusion status post angioplasty and stent placement. Depression with anxiety Diabetic peripheral neuropathy Eczema Gastroesophageal reflux disease Hyperlipidemia Hypertension Insulin dependent type 2 diabetes mellitus Hemoglobin A1c was 9.8% in July 2019. Myocardial infarction x2 Osteoarthritis Peripheral neuropathy Previous known suicide attempt Restless leg syndrome Seasonal allergies Septal defect Patient on certain whether this was an ASD or VSD repair, done at the age of 39. Valvular heart disease Status post mitral valve repair. ADARSH September 18, 2019 showed moderate to severe mitral valve calcification with decreased movement and evidence of moderate mitral valve regurgitation. Vitamin D deficiency Surgical History Surgical History History of History of cardiac catheterization (~11/2017) Status post angioplasty and stent placement to distal 1st diagonal per Dr. Montalvo. History of permanent cardiac pacemaker placement x2 History of sternectomy Repaired hole in heart, patient unsure whether it was in atrial or ventricular septal defect. Family History Family History Mother Peripheral vascular disease Sibling Diabetes mellitus Social History Social History Social History: The patient currently lives in her own home with her boyfriend. She is on disability. She is a lifelong nonsmoker and denies alcohol and drug abuse. She designates her daughter, Preethi Rai, as her surrogate decision maker and she wishes to be a full code. The patient has 1 biological child and then has adopted another child. The patient desires to be a full code. Smoking status: Never smoker Second hand tobacco smoke exposure: No [place]
--- NOTE | 2024-01-28 14:07 | IVDEFINITY ---
Prior to administration of IV Definity the patient was educated on the risks and benefits of the imaging enhancing agent including potential adverse side effects. The patient verbalized understanding. Allergies were verified. No exclusion criteria were identified and at least one of the following inclusion criteria were met: 1) physician request, 2) patient technically difficult to image (per the [place] [employer] guidelines of two or more segments not discernable within the apical view), or 3) questionable left ventricular function. ?
--- NOTE | 2024-01-28 16:43 | PM.CNCAR ---
Assessment and Plan Assessment and plan (1) Dyspnea on exertion: Code(s): R06.09 - Other forms of dyspnea Status: Acute Plan This is a 58-year-old woman who has a mild decompensation and congestive heart failure. She has a history of some ischemic disease as described above which has been stable angiographically. She also has a history of a congenital surgery that was done in the remote past that resulted in a pacemaker that is required with an abdominal pocket an epicardial leads. On telemetry her device appears to be functioning well however it is very concerning to me that she believes that she is pacemaker dependent and no one has been following this device for quite some time. The original implant and the generator change she believes were both done at [place] she says she can not go there any longer because they will not take her insurance. She says that she recently has been referred to the [facility] who apparently does take her insurance but she does not have yet that appointment as a new patient. For now I would continue her medical regimen and add some furosemide to improve her heart failure/volume overload status she does not appear to be markedly volume overloaded by exam at this time. It is exceedingly important that she have her pacemaker followed at a hospital that is equipped to and prepared to deal with a generator change of an abdominal pocket with epicardial leads. This is not a device that we can take care of at this hospital. For the moment that is not an emergency as it seems to be functioning adequately. We will follow her with you in the hospital she can be discharged when she is breathing comfortably and is my intention that she will follow with someone in the [facility] since from what I understand they will accept her insurance Js Myers MD [facility] History of Present Illness History of Present Illness Consult date/time: 01/28/24 16:43 Reason For Visit: CHF Narrative: This is a 58-year-old woman who has a history of congenital heart disease, coronary artery disease and a pacemaker who is being seen at the request of the hospitalist's to assist with evaluation and management of CHF and dyspnea. The patient states that she came to the hospital here earlier today because of symptoms of significant worsening of her chronic exertional shortness of breath over the course of this last week. She reports that she has a difficult time lying down without being short of breath and he becomes dyspneic with minimal activity walking about the house. She is not having any chest pain pressure or heaviness. She upon visiting me in the room today for this consultation is visiting with her family and seems to be in good spirits and in no distress of any kind. The patient has had cardiac care primarily in not here at [facility] and has been unfortunately rather fragmented and I do not have all of the details available to me. Apparently at a younger age she underwent congenital heart surgery at [facility] which she describes as a hole in her heart. At the time of at repair it she also required implantation of a pacemaker and she has a pacemaker with an abdominal pocket with the epicardial leads. She read more recently was under the care of another electronic maintenance supervisor who did not practice here at [facility]. She states that she has not been able to see those physicians for a long time because they do not take her insurance any longer. She was hospitalized twice here at [facility] with symptoms of atypical sounding chest pain. In April of 2021 she had a coronary angiogram done by myself that demonstrated occlusion of a diagonal branch of her LAD in the distal site that had previously been stented and a moderate lesion in the RPDA that did not appear to be flow-limiting. She had another admission here with chest pain in June of 2022 had a catheterization done by
[2024-01-28 17:01] LABS: Glucose Point of Care 181 mg/dl (65-105)
[2024-01-28 17:10] LABS: Troponin I < 0.012 ng/mL (0.000-0.034)
[2024-01-28] MEDS: GLIMEPIRIDE 2 MG TABLET 4 MG PO (17:26)
[2024-01-28] MEDS: METOPROLOL TARTRATE 25 MG TABLET PO (20:38)
[2024-01-28] MEDS: FLUTICASONE PROPIONATE 0.05% NA SPR 16 GM BTL (*BKC) 2 SPRAY NASAL (21:22)
[2024-01-28] MEDS: traZODone HCL 50 MG TABLET PO (21:22)
[2024-01-28 21:47] LABS: Glucose Point of Care 202 mg/dl (65-105)
[2024-01-29] VITALS (11 sets, daily range): BP systolic 98–121; BP diastolic 60–70; PULSE 73–87; RESP 16–18; TEMP 36.4–36.7; O2SAT 91–96
[2024-01-29 05:28] LABS: Basophils Percent Auto 0.6 % (0.2-1.2); Eosinophils Absolute Auto 0.1 K/mm3 (0-0.3); Eosinophils Percent Auto 1.2 % (0-4.4); Hematocrit 47.2 % (37.0-47.0); Immature Granulocyte Absolute 0.01 K/mm3 (0.00-0.031); Immature Granulocyte Percent A 0.2 % (0-0.5); Lymphocytes Absolute Auto 0.55 K/mm3 (0.9-3.2); Lymphocytes Percent Auto 10.6 % (18.3-44.2); Mean Corpuscular HGB Conc 33.9 g/dl (32-36); Mean Corpuscular Hemoglobin 29.7 pg (26-34); Mean Corpuscular Volume 87.6 fl (80-100); Mean Platelet Volume 10.7 fl (7.4-10.4); Monocytes Absolute Auto 0.5 K/mm3 (0.1-0.6); Monocytes Percent Auto 10.2 % (2.6-8.5); Neutrophils Percent Auto 77.2 % (45.5-73.1); Platelet Count Result 285 k/mm3 (150-375); Red Blood Count 5.39 M/mm3 (4.2-5.4); Red Cell Distribution Width 13.9 % (11.5-14.5); White Blood Count 5.2 K/mm3 (4.5-10.0)
[2024-01-29 05:56] LABS: Alanine Aminotransferase 22 U/L (6-35); Albumin Level 4.2 g/dL (3.5-5.1); Alkaline Phosphatase 105 U/L (38-126); Anion Gap 7 mmol/L (4-12); Aspartate Amino Transferase 23 U/L (14-36); Blood Urea Nitrogen 24 mg/dL (7-17); Calcium 9.5 mg/dL (8.4-10.2); Carbon Dioxide 31 mmol/L (22-30); Chloride 100 mmol/L (98-107); Estimated CRCL calculation 45 ml/min; Estimated Glomerular Filt Rate 51; Glucose 161 mg/dL (65-110); Magnesium 1.2 mg/dL (1.6-2.3); Potassium 3.8 mmol/L (3.4-5.0); Sodium 138 mmol/L (137-145)
[2024-01-29] MEDS: CITALOPRAM HYDROBROMIDE 10 MG TABLET PO (08:04)
[2024-01-29] MEDS: METOPROLOL TARTRATE 25 MG TABLET PO ×2 (08:04→20:03)
[2024-01-29] MEDS: GLIMEPIRIDE 2 MG TABLET 4 MG PO ×2 (08:04→17:06)
[2024-01-29] MEDS: PANTOPRAZOLE 40 MG TABLET PO (08:04)
[2024-01-29] MEDS: lisinopriL 2.5 MG TABLET PO (08:04)
[2024-01-29] MEDS: FUROSEMIDE INJ 40 MG/4 ML VIAL IV PUSH (08:04)
--- NOTE | 2024-01-29 08:04 | PM.IMPN ---
Progress Note: A&P Assessment and Plan (1) Acute on chronic diastolic congestive heart failure: Code(s): I50.33 - Acute on chronic diastolic (congestive) heart failure Status: Acute Assessment and Plan: - Symptoms: worsening dyspnea on exertion, pretibial edema - Supportive treatment Tyl and ibu prn Nebs prn - Continue home medications, added IV lasix which will be transitioned to PO Lasix 40 mg in the am - BNP: 1480 - EKG: Sinus rhythm, ventricularly paced - Chest XR: Small bilateral pleural effusions with mild to moderate bibasilar pulmonary edema. - Echo 01/27: LVEF 68%, mild MR, mild TR.? -Monitor vital signs, I&Os, BUN/creatinine, daily weights, neuro status and patient is a fall risk - Monitor serum electrolytes, Keep serum Potassium>4 and serum Magnesium>2 and CBC - Consult cardiology for further management, appreciate assistance and recommendations (2) Hypertension: Qualifiers: Hypertension type: unspecified Qualified Code(s): I10 - Essential (primary) hypertension Code(s): I10 - Essential (primary) hypertension Status: Acute Assessment and Plan: Chronic, stable on home medications. 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 - Citalopram 10 mg daily (5) Pacemaker: Code(s): Z95.0 - Presence of cardiac pacemaker Status: Acute Assessment and Plan: Needs follow up at facility capable of changing generator per Cardiology, likely due for change due to 11 years since last replacement. - Patient plans on establishing care with [facility] Time Spent With Patient Time with patient: 25 - 35 minutes Subjective Date/time seen: 01/29/24 08:04 Interval history: 58-year-old female patient with extensive past cardiac history including [place] x3, CAD, mitral valve repair, septal defect repair, pacemaker placement, hypertension, CHF hyperlipidemia who presented to the hospital today with significant dyspnea on exertion and orthopnea that has been ongoing for about 5-6 days and worsening each day.? Patient is pleasant lying comfortably in bed. She continues to endorse slight shortness of breath, but notes improvement with the lasix. She was evaluated by cardiology and will be transitioned to PO lasix 40 mg daily tomorrow. On discharge patient will require follow up at facility capable of managing her pacemaker as it is likely due for change due to 11 years since last replacement.Patient is planning on establishing care with [facility] after discharge as they have the ability to manage her pacemaker. Patient denies chest pain, palpitations, nausea/vomiting and changes in bowel/bladder. Review of Systems Review of Systems: All systems reviewed & are unremarkable except as noted in HPI and below Exam Narrative: AF HR 80 RR 18 SpO2 91 BP 121/60 General: female in no acute respiratory distress who is nontoxic appearing, lying semi recumbent in bed. HEENT: Normocephalic. Atraumatic. Pupils equal round reactive to light. Extraocular movement intact. Sclera clear and anicteric. No facial asymmetry. Chest: Lungs are diminished to auscultation bilaterally. No wheezes or crackles. CV: Heart was regular rate and rhythm. S1-S2. No murmurs, gallops, or rubs. Abd: Abdomen was soft. Nontender. Nondistended. Positive bowel sounds. No organomegaly or masses. Ext: No clubbing, cyanosis, or
[2024-01-29] MEDS: SITagliptin PHOSPHATE 100 MG TABLET PO (08:05)
[2024-01-29] MEDS: ENOXAPARIN 40 MG/0.4 ML SYRINGE SUB-Q (08:05)
[2024-01-29] MEDS: CLOPIDOGREL BISULFATE 75 MG TABLET PO (08:05)
[2024-01-29] MEDS: ROSUVASTATIN 20 MG TABLET PO (08:05)
[2024-01-29] MEDS: ASPIRIN 81 MG ENTERIC TABLET PO (08:05)
[2024-01-29 08:13] LABS: Glucose Point of Care 193 mg/dl (65-105)
[2024-01-29] MEDS: INSULIN GLARGINE (*BKC) 100 UNITS/ML 45 UNITS SUB-Q (08:17)
[2024-01-29 09:28] LABS: Hemoglobin A1C 9.4 % (<5.7)
[2024-01-29 12:04] LABS: Glucose Point of Care 203 mg/dl (65-105)
[2024-01-29] MEDS: INSULIN ASPART (*BKC) 100 UNITS/ML SUB-Q (12:10)
--- NOTE | 2024-01-29 13:35 | PM.PNCARD ---
Progress Note: A&P Assessment and Plan (1) Acute on chronic diastolic congestive heart failure: Code(s): I50.33 - Acute on chronic diastolic (congestive) heart failure Status: Acute Assessment and Plan: Echocardiogram this admission shows LVEF 60-65%, mild MR, mild TR. Improving with IV Lasix. Will finish off IV Lasix today and start PO Lasix 40mg once daily tomorrow. (2) Hypertension associated with diabetes: Code(s): E11.59 - Type 2 diabetes mellitus with other circulatory complications; I15.2 - Hypertension secondary to endocrine disorders Status: Acute Assessment and Plan: Stable. Continue Lisinopril, Metoprolol. (3) Hyperlipidemia associated with type 2 diabetes mellitus: Code(s): E11.69 - Type 2 diabetes mellitus with other specified complication; E78.5 - Hyperlipidemia, unspecified Status: Acute Assessment and Plan: Continue Rosuvastatin. (4) Pacemaker: Code(s): Z95.0 - Presence of cardiac pacemaker Status: Acute Assessment and Plan: Will be establishing care with [facility]. (5) AV block: Code(s): I44.30 - Unspecified atrioventricular block Status: Acute Assessment and Plan: S/p PPM. Will be establishing care with [facility]. (6) Coronary artery disease: Onset Date: ~11/2017 Qualifiers: Coronary Disease-Associated Artery/Lesion type: [place] artery [place] vs. transplanted heart: [place] heart Associated angina: without angina Qualified Code(s): I25.10 - Atherosclerotic heart disease of [place] coronary artery without angina pectoris Code(s): I25.10 - Atherosclerotic heart disease of [place] coronary artery without angina pectoris Status: Acute Assessment and Plan: Continue ASA, Plavix, statin (7) Insulin dependent type 2 diabetes mellitus: Code(s): E11.9 - Type 2 diabetes mellitus without complications; Z79.4 - custodial (current) use of insulin Status: Acute Assessment and Plan: Management as per primary team. Plan Recommendations and plan discussed with Hospitalist. Anticipate discharge home tomorrow. Subjective Date/time seen: 01/29/24 13:35 Interval history: Reason for visit: CHF HPI: This is a 58-year-old woman who has a history of congenital heart disease, coronary artery disease and a pacemaker who is being seen at the request of the hospitalist's to assist with evaluation and management of CHF and dyspnea.? The patient states that she came to the hospital here earlier today because of symptoms of significant worsening of her chronic exertional shortness of breath over the course of this last week.? She reports that she has a difficult time lying down without being short of breath and he becomes dyspneic with minimal activity walking about the house.? She is not having any chest pain pressure or heaviness.? She upon visiting me in the room today for this consultation is visiting with her family and seems to be in good spirits and in no distress of any kind.? The patient has had cardiac care primarily in not here at [facility] and has been unfortunately rather fragmented and I do not have all of the details available to me.? Apparently at a younger age she underwent congenital heart [facility] which she describes as a hole in her heart.? At the time of at repair it she also required implantation of a pacemaker and she has a pacemaker with an abdominal pocket with the epicardial leads.? She read more recently was under the care of another firer low pressure who did not practice here at [facility].? She states that she has not been able to see those physicians for a long time because they do not take her insurance any longer.? She was hospitalized twice here at [facility] with symptoms of atypical sounding chest pain.? In April of 2021 she had a coronary angiogram done by myself that demonstrated occlusion of a di
[2024-01-29 16:56] LABS: Glucose Point of Care 107 mg/dl (65-105)
[2024-01-29] MEDS: FLUTICASONE PROPIONATE 0.05% NA SPR 16 GM BTL (*BKC) 2 SPRAY NASAL (17:07)
[2024-01-29 20:01] LABS: Glucose Point of Care 137 mg/dl (65-105)
[2024-01-30] VITALS: PULSE 82
[2024-01-30 04:00] VITALS: PULSE 79
[2024-01-30 05:04] VITALS: BP 128/70; PULSE 73; RESP 16; TEMP 36.4; O2SAT 90
[2024-01-30 05:38] LABS: Basophils Percent Auto 1.1 % (0.2-1.2); Eosinophils Percent Auto 0.5 % (0-4.4); Hematocrit 45.1 % (37.0-47.0); Hemoglobin 15.7 g/dL (12.0-15.0); Immature Granulocyte Absolute 0.02 K/mm3 (0.00-0.031); Immature Granulocyte Percent A 0.5 % (0-0.5); Lymphocytes Absolute Auto 0.51 K/mm3 (0.9-3.2); Lymphocytes Percent Auto 13.8 % (18.3-44.2); Mean Corpuscular HGB Conc 34.8 g/dl (32-36); Mean Corpuscular Hemoglobin 30.7 pg (26-34); Mean Corpuscular Volume 88.1 fl (80-100); Mean Platelet Volume 10.8 fl (7.4-10.4); Monocytes Absolute Auto 0.8 K/mm3 (0.1-0.6); Monocytes Percent Auto 20.3 % (2.6-8.5); Neutrophils Absolute Auto 2.4 K/mm3 (1.3-6.7); Neutrophils Percent Auto 63.8 % (45.5-73.1); Platelet Count Result 237 k/mm3 (150-375); Red Blood Count 5.12 M/mm3 (4.2-5.4); Red Cell Distribution Width 13.6 % (11.5-14.5); White Blood Count 3.7 K/mm3 (4.5-10.0)
[2024-01-30 06:00] LABS: Alanine Aminotransferase 19 U/L (6-35); Alkaline Phosphatase 88 U/L (38-126); Anion Gap 9 mmol/L (4-12); Aspartate Amino Transferase 23 U/L (14-36); Bilirubin,Total 1.4 mg/dL (0.2-1.3); Blood Urea Nitrogen 28 mg/dL (7-17); Calcium 8.2 mg/dL (8.4-10.2); Carbon Dioxide 29 mmol/L (22-30); Chloride 100 mmol/L (98-107); Estimated CRCL calculation 36 ml/min; Estimated Glomerular Filt Rate 38; Glucose 62 mg/dL (65-110); Magnesium 1.4 mg/dL (1.6-2.3); Potassium 2.8 mmol/L (3.4-5.0); Sodium 138 mmol/L (137-145)
[2024-01-30] MEDS: POTASSIUM CHLORIDE INJ 40 MEQ in SODIUM CHLORIDE 0.9% IV 500 ML 130 MEQ IVPB (07:00)
[2024-01-30 08:00] VITALS: PULSE 79
[2024-01-30 08:30] VITALS: PULSE 80
[2024-01-30] MEDS: PANTOPRAZOLE 40 MG TABLET PO (08:30)
[2024-01-30] MEDS: lisinopriL 2.5 MG TABLET PO (08:30)
[2024-01-30] MEDS: FUROSEMIDE 40 MG TABLET PO (08:30)
[2024-01-30] MEDS: ROSUVASTATIN 20 MG TABLET PO (08:30)
[2024-01-30] MEDS: GLIMEPIRIDE 2 MG TABLET 4 MG PO (08:30)
[2024-01-30] MEDS: SITagliptin PHOSPHATE 100 MG TABLET PO (08:30)
[2024-01-30] MEDS: ENOXAPARIN 40 MG/0.4 ML SYRINGE SUB-Q (08:30)
[2024-01-30] MEDS: CITALOPRAM HYDROBROMIDE 10 MG TABLET PO (08:30)
[2024-01-30] MEDS: CLOPIDOGREL BISULFATE 75 MG TABLET PO (08:30)
[2024-01-30] MEDS: METOPROLOL TARTRATE 25 MG TABLET PO (08:30)
[2024-01-30] MEDS: ASPIRIN 81 MG ENTERIC TABLET PO (08:30)
[2024-01-30 08:36] LABS: Glucose Point of Care 66 mg/dl (65-105)
--- NOTE | 2024-01-30 09:57 | PC.NURSE ---
Pt am BS was 66. Value Analyst held insulin per hospitalistTawanna and administered juice and patient ate breakfast. Repeat accu check was 184
[2024-01-30 09:58] LABS: Glucose Point of Care 184 mg/dl (65-105)
[2024-01-30 11:59] LABS: Glucose Point of Care 151 mg/dl (65-105)
[2024-01-30 12:00] VITALS: PULSE 71
--- NOTE | 2024-01-30 12:06 | PM.DS ---
DS: Admitting Diagnosis Discharge Date 01/30/2024 Admitting Diagnosis Acute on chronic diastolic heart failure Hypertension Insulin dependent type 2 diabetes mellitus Depression with anxiety Pacemaker DS: Discharge Diagnosis Discharge Diagnosis (1) Acute on chronic diastolic congestive heart failure: Code(s): I50.33 - Acute on chronic diastolic (congestive) heart failure Status: Acute (2) Hypertension: Qualifiers: Hypertension type: unspecified Qualified Code(s): I10 - Essential (primary) hypertension Code(s): I10 - Essential (primary) hypertension Status: Acute (3) Insulin dependent type 2 diabetes mellitus: Code(s): E11.9 - Type 2 diabetes mellitus without complications; Z79.4 - roasterman (current) use of insulin Status: Acute (4) Depression with anxiety: Code(s): F41.8 - Other specified anxiety disorders Status: Chronic (5) Pacemaker: Code(s): Z95.0 - Presence of cardiac pacemaker Status: Acute DS: Summary Hospital Course Reason for hospitalization: Acute on chronic diastolic heart failure Hypertension Insulin dependent type 2 diabetes mellitus Depression with anxiety Pacemaker Hospital Course: 58-year-old female patient with extensive past cardiac history including [place] x3, CAD, mitral valve repair, septal defect repair, pacemaker placement, hypertension, CHF hyperlipidemia who presented to the hospital today with significant dyspnea on exertion and orthopnea that has been ongoing for about 5-6 days and worsening each day.?Labs were concerning for CHF exacerbation and an echo was obtained that showed LVEF 68% with mild MR/TR. Patient was started on lasix IV and cardiology was consulted. At time of discharge patient was transitioned to lasix PO and started on a potassium supplement. She had a slight elevation in her BUN/Cr prior to discharge secondary to IV lasix. CMP ordered outpatient to reassess. Patient is dependent on her pacemaker and the generator has not been changed for several years. Patient plans to follow [facility] for her pacemaker needs. Patient discharged home in stable condition. She is to obtain a CMP in 3 days to reassess potassium and kidney function. She has an appointment with her PCP on 02/02 where she will discuss recent admission. She plans on following up with [facility] in regards to her pacemaker. She states she has already placed a call and left a voicemail prior to discharge. Status at Discharge Functional status at discharge: independent ambulation Time Spent with Patient Time attestation: Total time spent providing and/or coordinating discharge services: Time spent: Greater than 30 minutes Exam Narrative: AF HR 73 RR 16 SpO2 90 BP 128/70 General: female in no acute respiratory distress who is nontoxic appearing, lying semi recumbent in bed. HEENT: Normocephalic. Atraumatic. Pupils equal round reactive to light. Extraocular movement intact. Sclera clear and anicteric. No facial asymmetry. Chest: Lungs are diminished to auscultation bilaterally. No wheezes or crackles. CV: Heart was regular rate and rhythm. S1-S2. No murmurs, gallops, or rubs. Abd: Abdomen was soft. Nontender. Nondistended. Positive bowel sounds. No organomegaly or masses. Ext: No clubbing, cyanosis, or edema. 2+ DP pulses bilaterally. Neuro: Patient is alert and oriented x4. Cranial nerves 2-12 are intact. Speech is clear. Psych: Normal mood and affect. Patient is pleasant and cooperative. Skin: Warm and dry. No rashes noted. DS: Data Data Completed and Pending Completed studies during hospitalization: Chest XR Chest XR Labs on day of discharge: Labs from last 24 hours 01/30/24 01/30/24 01/30/24 11:37 09:53 08:34 WBC RBC Hgb Hct MCV MCH MCHC RDW Plt Count MPV Immature Gran % (Auto) Neut % (Auto) Lymph % (Auto) Boyd % (Auto) Eos % (Auto) Baso % (Auto)
== END 2024-01-30 16:15 | disposition home or self-care (01) ==
LOC: ANHED 09:57 → ANH3MED 12:26
PROVIDERS: Emergency Medicine; Nurse Practitioner; Admitting Provider Family Medicine; Emergency Provider Family Medicine; Visit Provider Student in an Organized Health Care Education/Training Program
DX: I11.0 Hypertensive heart disease with heart failure (principal); I50.33 Acute on chronic diastolic (congestive) heart failure; R06.09 Other forms of dyspnea; E78.5 Hyperlipidemia, unspecified; F41.8 Other specified anxiety disorders; I44.30 Unspecified atrioventricular block; D64.9 Anemia, unspecified; I25.10 Atherosclerotic heart disease of native coronary artery without angina pectoris; K21.9 Gastro-esophageal reflux disease without esophagitis; I25.2 Old myocardial infarction; E11.42 Type 2 diabetes mellitus with diabetic polyneuropathy; E11.59 Type 2 diabetes mellitus with other circulatory complications; G25.81 Restless legs syndrome; E55.9 Vitamin D deficiency, unspecified; Z95.0 Presence of cardiac pacemaker; Z79.84 Long term (current) use of oral hypoglycemic drugs; Z79.82 Long term (current) use of aspirin; Z79.4 Long term (current) use of insulin; Z91.51 Personal history of suicidal behavior; Z79.02 Long term (current) use of antithrombotics/antiplatelets
CPT/HCPCS: 36415; 71045; 71046; 80053; 81001; 82948; 83036; 83735; 83880; 84484; 85025; 93005; 93306; 96372; 96374; 96375; 96376; 99285; A9270; G0378; G0379; J1650; J1815; J1940; J3480; J7040; Q9957

== ENCOUNTER 2024-02-02 10:29 | Outpatient (CLI) | payer OTHER, SELFPAY ==
[2024-02-02 11:17] LABS: Alanine Aminotransferase 22 U/L (6-35); Albumin Level 4.5 g/dL (3.5-5.1); Alkaline Phosphatase 104 U/L (38-126); Anion Gap 11 mmol/L (4-12); Aspartate Amino Transferase 32 U/L (14-36); Bilirubin,Total 1.2 mg/dL (0.2-1.3); Blood Urea Nitrogen 43 mg/dL (7-17); Calcium 8.6 mg/dL (8.4-10.2); Carbon Dioxide 27 mmol/L (22-30); Chloride 100 mmol/L (98-107); Estimated Glomerular Filt Rate 35; Glucose 154 mg/dL (65-110); Potassium 4.1 mmol/L (3.4-5.0); Sodium 138 mmol/L (137-145)
== END 2024-02-02 10:30 | disposition home or self-care (01) ==
PROVIDERS: Visit Provider Student in an Organized Health Care Education/Training Program
DX: E87.6 Hypokalemia (principal)
CPT/HCPCS: 36415; 80053

== ENCOUNTER 2024-06-06 21:41 | Emergency (ER) | payer OTHER, SELFPAY ==
[2024-06-06 22:23] VITALS: BP 153/80; PULSE 65; RESP 16; TEMP 37; O2SAT 99
[2024-06-06 22:27] LABS: Glucose Point of Care 474 mg/dl (65-105)
[2024-06-07] MEDS: SODIUM CHLORIDE 0.9% IV 1,000 ML 999 ML IV CONT (00:10)
[2024-06-07 00:16] VITALS: BP 132/59; PULSE 83; O2SAT 96
[2024-06-07 00:23] LABS: Basophils Percent Auto 0.6 % (0.2-1.2); Eosinophils Absolute Auto 0.1 K/mm3 (0-0.3); Eosinophils Percent Auto 2.2 % (0-4.4); Hematocrit 48.5 % (37.0-47.0); Hemoglobin 16.6 g/dL (12.0-15.0); Immature Granulocyte Absolute 0.02 K/mm3 (0.00-0.031); Immature Granulocyte Percent A 0.3 % (0-0.5); Lymphocytes Absolute Auto 1.27 K/mm3 (0.9-3.2); Lymphocytes Percent Auto 20.3 % (18.3-44.2); Mean Corpuscular HGB Conc 34.2 g/dl (32-36); Mean Corpuscular Volume 84.6 fl (80-100); Mean Platelet Volume 11.2 fl (7.4-10.4); Monocytes Absolute Auto 0.5 K/mm3 (0.1-0.6); Neutrophils Absolute Auto 4.3 K/mm3 (1.3-6.7); Neutrophils Percent Auto 68.6 % (45.5-73.1); Platelet Count Result 254 k/mm3 (150-375); Red Blood Count 5.73 M/mm3 (4.2-5.4); Red Cell Distribution Width 13.6 % (11.5-14.5); White Blood Count 6.3 K/mm3 (4.5-10.0)
[2024-06-07 00:33] LABS: Lactic Acid Reflex 1.9 mmol/L (0.7-2.0)
[2024-06-07 00:38] LABS: Alanine Aminotransferase 18 U/L (6-35); Albumin Level 4.5 g/dL (3.5-5.1); Alkaline Phosphatase 142 U/L (38-126); Anion Gap 12 mmol/L (4-12); Aspartate Amino Transferase 19 U/L (14-36); Bilirubin,Total 1.1 mg/dL (0.2-1.3); Blood Urea Nitrogen 24 mg/dL (7-17); Calcium 9.5 mg/dL (8.4-10.2); Carbon Dioxide 23 mmol/L (22-30); Chloride 98 mmol/L (98-107); Estimated CRCL calculation 52 ml/min; Estimated Glomerular Filt Rate 57; Glucose 362 mg/dL (65-110); Potassium 4.7 mmol/L (3.4-5.0); Sodium 133 mmol/L (137-145)
[2024-06-07 01:24] LABS: Add Urine Microscopic? YES; Appearance Urine Clear (Clear); Bacteria Urine None Seen /hpf; Bilirubin Urine Negative (Negative); Blood Urine Negative (Negative); Color Urine Yellow (Yellow); Glucose Urine UA 3+ mg/dL (Negative); Ketones Urine Negative (Negative); Leukocyte Esterase Ur Negative LEU/UL (Negative); Nitrate Urine Negative (Negative); Non Pathogenic Casts 0-2; Protein Urine 2+ mg/dL (Negative); RBC Urine 0-2 /hpf (0-2); Specific Grav Ur 1.022 (1.001-1.035); Squamous Epithelial Cell Urine None Seen /hpf (Few); Urobilinogen Urine 0.2 mg/dL (<2.0); WBC Urine 0-5 /hpf (0-3); pH Urine 5.5 (5.0-9.0)
[2024-06-07 01:24] LABS: Hemoglobin A1C 11.3 % (<5.7)
[2024-06-07 01:26] VITALS: RESP 18; O2SAT 97
--- NOTE | 2024-06-07 01:34 | ED.GENADULT ---
HPI - General Adult General Chief complaint: Recheck/Abnormal Lab/Rx Stated complaint: high blood sugar Time Seen by Provider: 06/06/24 23:52 History of Present Illness HPI narrative: 58-year-old female present to the emergency department for evaluation for hyperglycemia. Patient admits that she is a poorly controlled diabetic. Patient had follow-up with primary care physician today and was noted that her blood sugar was greater than 500. Patient states she does not often check her blood sugar. When patient got home she stated she was feeling poorly so she did check her blood sugar again and it was still elevated. Patient presented emergency department for evaluation. Patient denies any associated nausea vomiting diarrhea. Patient is A&O at her baseline. Related Data Home Medications Medication Instructions Recorded Confirmed aspirin 81 mg tablet,delayed 81 mg PO DAILY 07/05/19 01/28/24 release (Adult Low Dose Aspirin) citalopram 20 mg tablet 10 mg PO DAILY 07/05/19 01/28/24 clopidogrel 75 mg tablet (Plavix) 75 mg PO DAILY 07/05/19 01/28/24 nitroglycerin 0.4 mg sublingual 0.4 mg sublingual Q5-15M PRN Chest 07/05/19 01/28/24 tablet (Nitrostat) Pain pantoprazole 40 mg tablet,delayed 40 mg PO DAILY 07/05/19 01/28/24 release glimepiride 4 mg tablet 4 mg PO BID 08/20/19 01/28/24 metoprolol tartrate 25 mg tablet 25 mg PO BID 10/12/19 01/28/24 rosuvastatin 20 mg tablet 20 mg PO DAILY 08/03/20 01/28/24 insulin glargine 100 unit/mL (3 45 unit subcut HS 07/08/22 01/28/24 mL) subcutaneous pen (Basaglar KwikPen U-100 Insulin) sitagliptin phosphate 100 mg 100 mg PO DAILY 07/08/22 01/28/24 tablet (Januvia) lisinopril 5 mg tablet 2.5 mg PO DAILY 01/28/24 01/28/24 ezetimibe 10 mg tablet mg 06/06/24 Allergies Allergy/AdvReac Type Severity Reaction Status Date / Time azithromycin AdvReac Severe Gastrointestinal Verified 06/06/24 21:44 Upset diphenhydramine AdvReac Palpitation Verified 06/06/24 21:44 [From Ignacio] christina Review of Systems Review of Systems: All systems reviewed & are unremarkable except as noted in HPI and below PMFSH Past Medical History Medical History Anemia With history of blood transfusion. AV block Status post atrial pacemaker insertion. CHF (congestive heart failure) Coronary artery disease (~11/2017) Cardiac catheterization per Dr. Montalvo demonstrated distal 1st diagonal vessel total occlusion status post angioplasty and stent placement. Depression with anxiety Diabetic peripheral neuropathy Eczema Gastroesophageal reflux disease Hyperlipidemia Hypertension Insulin dependent type 2 diabetes mellitus Hemoglobin A1c was 9.8% in July 2019. Myocardial infarction x2 Osteoarthritis Peripheral neuropathy Previous known suicide attempt Restless leg syndrome Seasonal allergies Septal defect Patient on certain whether this was an ASD or VSD repair, done at the age of 39. Valvular heart disease Status post mitral valve repair. ADARSH September 18, 2019 showed moderate to severe mitral valve calcification with decreased movement and evidence of moderate mitral valve regurgitation. Vitamin D deficiency Surgical History Surgical History History of History of cardiac catheterization (~11/2017) Status post angioplasty and stent placement to distal 1st diagonal per Dr. Montalvo. History of permanent cardiac pacemaker placement x2 History of sternectomy Repaired hole in heart, patient unsure whether it was in atrial or ventricular septal defect. Family History Family History Mother Peripheral vascular disease Sibling Diabetes mellitus Social History Social History Social History: The patient currently lives in her own home with her boyfr
[2024-06-07 01:38] LABS: Glucose Point of Care 302 mg/dl (65-105)
[2024-06-07 02:05] VITALS: BP 132/61; PULSE 72; RESP 16; O2SAT 98
== END 2024-06-07 02:06 | disposition home or self-care (01) ==
PROVIDERS: Emergency Provider Emergency Medicine
DX: E11.65 Type 2 diabetes mellitus with hyperglycemia (principal); Z79.4 Long term (current) use of insulin; D64.9 Anemia, unspecified; I11.0 Hypertensive heart disease with heart failure; I50.9 Heart failure, unspecified; Z95.0 Presence of cardiac pacemaker; F41.9 Anxiety disorder, unspecified; F32.A Depression, unspecified; K21.9 Gastro-esophageal reflux disease without esophagitis; I25.2 Old myocardial infarction; M19.90 Unspecified osteoarthritis, unspecified site; G25.81 Restless legs syndrome
CPT/HCPCS: 36415; 80053; 81001; 82010; 82948; 83036; 83605; 85025; 96360; 99283; J7030

== ENCOUNTER 2024-07-23 16:27 | Emergency (ER) | payer OTHER, SELFPAY ==
--- NOTE | ~2024-07-23 | XR_ITS ---
XR chest 2V DATE: 07/23/2024 18:40 INDICATION: Dizziness TECHNIQUE: AP and lateral views COMPARISON: 01/30/2024 portable upright AP chest FINDINGS: Status post sternotomy. Cardiomegaly, aortic arch calcification. Epicardial pacemaker device. No pulmonary infiltrate or consolidation, pleural effusion or pulmonary vascular congestion or pneumo thorax is detected. IMPRESSION: Cardiomegaly No active pulmonary disease Reviewed, dictated and finalized at location [facility]. PMENT APPLICATION SPECIALIST
--- NOTE | ~2024-07-23 | CT_ITS ---
EXAMINATION: CT brain wo con DATE: 07/23/2024 20:56 INDICATION: Slurred speech TECHNIQUE: Computed tomography (CT) of the head was performed without intravenous contrast. The mA wa s adjusted according to patient size. Iterative reconstruction technique was employed. Exam dose: 68 1.00 mGy-cm total exam DLP. COMPARISON: 12/17/2023 CT brain FINDINGS: Chronic small bilateral cerebellar hemispheric infarcts. Bilateral carotid siphon internal carotid artery calcifications. There is nonspecific diminished atte nuation the cerebral white matter, likely due to chronic small vessel ischemic changes. No intracranial mass lesion or hemorrhage or cerebrovascular accident, midline shift or mass effect i s detected. No subdural or epidural hematoma . No fracture or bone destruction of the cranial. Mastoid air cells and paranasal sinuses are normally developed and aerated. IMPRESSION: Chronic small bilateral cerebellar hemispheric infarcts Cerebral atherosclerosis and chronic small vessel ischemic changes of the cerebral white matter No acute intracranial finding Reviewed, dictated and finalized at [facility]. Reviewed, dictated and finalized at location [facility]. GRAPH EXAMINER IMPRESSION: Chronic small bilateral cerebellar hemispheric infarcts Cerebral atherosclerosis and chronic small vessel ischemic changes of the cereb ral white matter No acute intracranial finding
[2024-07-23 16:32] VITALS: BP 135/85; PULSE 63; RESP 20; TEMP 37; O2SAT 100
[2024-07-23 16:42] LABS: Glucose Point of Care 153 mg/dl (65-105)
[2024-07-23 18:00] VITALS: BP 144/87; PULSE 65; RESP 18; O2SAT 99
--- NOTE | 2024-07-23 18:08 | ECG_ITS ---
Test Date: 2024-07-23 18:16:45 Measurements Intervals [place] Rate: 65 P: 0 [place]: 0 QRS: -56 QRSD: 191 T: 105 QT: 501 QTc: 522 Interpretive Statements ELECTRONIC VENTRICULAR PACEMAKER BASELINE ARTIFACT- I, II, III, AVR, AVL, AVF, V1 NO FURTHER INTERPRETATION IS POSSIBLE ATYPICAL ECG Compared to ECG 01/28/2024 06:57:48 No significant changes Electronically Signed On 07-23-2024 18:48:37 REFERENCE LIBRARY ASSISTANT by Armando Goff D.O.
[2024-07-23 18:20] LABS: Basophils Percent Auto 0.5 % (0.2-1.2); Eosinophils Absolute Auto 0.1 K/mm3 (0-0.3); Eosinophils Percent Auto 0.6 % (0-4.4); Hematocrit 48.6 % (37.0-47.0); Hemoglobin 16.9 g/dL (12.0-15.0); Immature Granulocyte Absolute 0.02 K/mm3 (0.00-0.031); Immature Granulocyte Percent A 0.2 % (0-0.5); Lymphocytes Absolute Auto 1.21 K/mm3 (0.9-3.2); Lymphocytes Percent Auto 14.3 % (18.3-44.2); Mean Corpuscular HGB Conc 34.8 g/dl (32-36); Mean Corpuscular Hemoglobin 29.5 pg (26-34); Mean Platelet Volume 10.4 fl (7.4-10.4); Monocytes Absolute Auto 0.6 K/mm3 (0.1-0.6); Monocytes Percent Auto 7.5 % (2.6-8.5); Neutrophils Absolute Auto 6.5 K/mm3 (1.3-6.7); Neutrophils Percent Auto 76.9 % (45.5-73.1); Platelet Count Result 208 k/mm3 (150-375); Red Blood Count 5.72 M/mm3 (4.2-5.4); Red Cell Distribution Width 13.3 % (11.5-14.5); White Blood Count 8.4 K/mm3 (4.5-10.0)
[2024-07-23 18:21] VITALS: PULSE 65
[2024-07-23 18:30] LABS: Alanine Aminotransferase 20 U/L (6-35); Albumin Level 4.3 g/dL (3.5-5.1); Alkaline Phosphatase 101 U/L (38-126); Anion Gap 11 mmol/L (4-12); Aspartate Amino Transferase 24 U/L (14-36); Bilirubin,Total 1.3 mg/dL (0.2-1.3); Blood Urea Nitrogen 31 mg/dL (7-17); Calcium 9.4 mg/dL (8.4-10.2); Carbon Dioxide 24 mmol/L (22-30); Chloride 104 mmol/L (98-107); Estimated CRCL calculation 35 ml/min; Estimated Glomerular Filt Rate 38; Glucose 133 mg/dL (65-110); Potassium 4.6 mmol/L (3.4-5.0); Sodium 139 mmol/L (137-145)
--- NOTE | 2024-07-23 19:04 | ED_ITS ---
HPI - Neuro Symptoms/Deficit General Chief Complaint: Neuro Symptoms/Deficit Stated Complaint: I don't feel normal Time Seen by Provider: 07/23/24 18:11 History of Present Illness HPI Narrative: Patient is a 58-year-old female who presents to the ER after experiencing ?left arm tremors ?and ?slurred speech ?around 2:30 p.m. this afternoon. Upon arrival to the ER she reports the arm tremors have subsided, along with her slurred speech, but she endorses left hand numbness, which has gone on for years. Patient denies any shortness of breath, chest pain, fevers. She reports ?I have been taking care of myself lately.? Patient endorses a history of diabetes, left hand numbness/tingling, and has a pacemaker. 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 Related Data Home Medications Medication Instructions Recorded Confirmed aspirin 81 mg tablet,delayed 81 mg PO DAILY 07/05/19 01/28/24 release (Adult Low Dose Aspirin) citalopram 20 mg tablet 10 mg PO DAILY 07/05/19 01/28/24 clopidogrel 75 mg tablet (Plavix) 75 mg PO DAILY 07/05/19 01/28/24 nitroglycerin 0.4 mg sublingual 0.4 mg sublingual Q5-15M PRN Chest 07/05/19 01/28/24 tablet (Nitrostat) Pain pantoprazole 40 mg tablet,delayed 40 mg PO DAILY 07/05/19 01/28/24 release glimepiride 4 mg tablet 4 mg PO BID 08/20/19 01/28/24 metoprolol tartrate 25 mg tablet 25 mg PO BID 10/12/19 01/28/24 rosuvastatin 20 mg tablet 20 mg PO DAILY 08/03/20 01/28/24 insulin glargine 100 unit/mL (3 45 unit subcut HS 07/08/22 01/28/24 mL) subcutaneous pen (Basaglar KwikPen U-100 Insulin) sitagliptin phosphate 100 mg 100 mg PO DAILY 07/08/22 01/28/24 tablet (Januvia) lisinopril 5 mg tablet 2.5 mg PO DAILY 01/28/24 01/28/24 ezetimibe 10 mg tablet mg 06/06/24 Allergies Allergy/AdvReac Type Severity Reaction Status Date / Time azithromycin AdvReac Severe Gastrointestinal Verified 07/23/24 16:31 Upset diphenhydramine AdvReac Palpitation Verified 07/23/24 16:31 [From Ignacio] christina Review of Systems Review of Systems: All systems reviewed & are unremarkable except as noted in HPI and below PMFSH Past Medical History Medical History Anemia With history of blood transfusion. AV block Status post atrial pacemaker insertion. CHF (congestive heart failure) Coronary artery disease (~11/2017) Cardiac catheterization per Dr. Montalvo demonstrated distal 1st diagonal vessel total occlusion status post angioplasty and stent placement. Depression with anxiety Diabetic peripheral neuropathy Eczema Gastroesophageal reflux disease Hyperlipidemia Hypertension Insulin dependent type 2 diabetes mellitus Hemoglobin A1c was 9.8% in July 2019. Myocardial infarction x2 Osteoarthritis Peripheral neuropathy Previous known suicide attempt Restless leg syndrome Seasonal allergies Septal defect Patient on certain whether this was an ASD or VSD repair, done at the age of 39. Valvular heart disease Status post mitral valve repair. ADARSH September 18, 2019 showed moderate to severe mitral valve calcification with decreased movement and evidence of moderate mitral valve regurgitation. Vitamin D deficiency Surgical History Surgical History History of History of cardiac catheterization (~11/2017) Status post angioplasty and stent placement to distal 1st diagonal per Dr. Montalvo. History of permanent cardiac pacemaker placement x2 History of sternectomy Repaired hole in heart, patient unsure whether it was in atrial or ventricular septal defect. Family History Family History Mother Peripheral vascular disease Sibling Diabetes mellitus Social History Social History Social History: The patient currently lives in her own home with her boyfriend. She is on disability. She is a lifelong nonsmoker and denies alcohol and drug abuse. She designates her daughter, Preethi Rai, as her surrogate decision maker and she wishes to be a full code. The patient has 1 biological child and then has adopted another child. The patient desires to be a full code. Smoking status: Never smoker Second hand tobacco smoke exposure: No Alcohol intake: never Substance use: never Substance use type: does not use Do You Feel Safe in your Home?: Yes Lack of Transportation: No Lack of Food: Never True Current Housing: I Have Housing Concerned About Future Housing: No Difficulty Paying Gas/Electric Bills: YES Difficulty Paying for Meds: No Currently Unemployed: No Education: High School Diploma/GED Difficulty w/ Childcare or Family Care: No Gender identity (if verbalized by the patient): Female Spiritual care concerns: No Agree to blood products: Yes Exam Narrative: GENERAL: Well appearing, well-nourished, non-toxic, in no acute distress. HEAD: Normocephalic, atraumatic. NECK: Supple. No adenopathy, no masses. RESPIRATORY: Airway patent, respirations nonlabored. Clear to auscultation bilaterally, no rales, rhonchi, wheezing. CARDIOVASCULAR: Regular paced rate (65) and rhythm without murmurs, rubs, or gallops. Peripheral pulses 2+ and equal bilaterally. ABDOMINAL: Soft, nontender, nondistended, no hepatosplenomegaly. Normoactive BS. MUSCULOSKELETAL: Moves all extremities. Strength/ROM intact without gross deformities. SKIN: Warm, dry, normal color. No rashes. NEURO: A&O X3. Speech clear. Cranial nerves II-XII grossly intact. No ataxic movements. PSYCHIATRIC: Appropriate mood and affect. Normal interaction. Course Vital Signs Vital signs: Vital Signs Temperature 37.0 C 07/23/24 16:32 Pulse Rate 63 07/23/24 16:32 Respiratory Rate 20 07/23/24 16:32 Blood Pressure 135/85 07/23/24 16:32 Pulse Oximetry 100 07/23/24 16:32 Oxygen Delivery Room Air 07/23/24 16:32 Temperature 37.0 C 07/23/24 16:32 Pulse Rate 64 07/23/24 19:10 Respiratory Rate 18 07/23/24 19:10 Blood Pressure 144/73 H 07/23/24 19:10 Pulse Oximetry 100 07/23/24 19:10 Oxygen Delivery Room Air 07/23/24 16:32 MDM - Neuro Symptoms/Deficit MDM Narrative Medical decision making narrative: Patient is a 58-year-old female who presents to the ER after experiencing ?left arm tremors ?and ?slurred speech ?around 2:30 p.m. this afternoon. Upon arrival to the ER she reports the arm tremors have subsided, along with her slurred speech, but she endorses left hand numbness, which has gone on for years. Patient denies any shortness of breath, chest pain, fevers. She reports ?I have been taking care of myself lately.? Patient endorses a history of diabetes, left hand numbness/tingling, and has a pacemaker. She re ports she is supposed to have her pacemaker replaced ?really soon, but her materials branch chief is currently at [employer]. Labs Ordered: CBC, CMP, COVID/influenza Imaging Ordered: CT brain, chest xray Results: Pt's chest x-ray showed: No active pulmonary disease, Pt's head CT scan showed: Chronic small bilateral cerebellar hemispheric infarcts Cerebral atherosclerosis and chronic small vessel ischemic changes of the cerebral white matter No acute intracranial finding Diagnosis: Neuropathy Risks: HEART score: 5, pt has moderate risk for a major cardiac event but she has a known heart condition and knows she needs to follow-up with cardiology Patient Education/Shared MDM: Patient's CMP results were similar to previous blood work results including a BUN of 31, creatinine of 1.7, GFR 38. She was encouraged to continue drinking water at home to protect her kidneys. Patient's CBC was unremarkable and similar to previous blood work results also. Her influenza a/COVID/RSV swabs were all negative. Patient's head CT scan and chest x-ray were both unremarkable. She and her family were provided with extensive counseling on the need for patient to follow with her materials branch chief Linh. Patient was also advised to follow up with her primary care provider as her kidney function is borderline and needs to be monitored closely. She and her family verbalized understanding of plan and are in agreement with discharge. Differential Diagnosis Differential diagnosis: Likely peripheral neuropathy, cerebrovascular accident and other (TIA) Lab Data Attestation: I reviewed the patient's lab results. 07/23/24 18:10 07/23/24 18:10 Labs: Lab Results 07/23/24 07/23/24 07/23/24 Range/Units 16:37 18:10 19:15 WBC 8.4 (4.5-10.0) K/mm3 RBC 5.72 H (4.2-5.4) M/mm3 Hgb 16.9 H (12.0-15.0) g/dL Hct 48.6 H (37.0-47.0) % MCV 85.0 (80-100) fl MCH 29.5 (26-34) pg MCHC 34.8 (32-36) g/dl RDW 13.3 (11.5-14.5) % Plt Count 208 (150-375) k/mm3 MPV 10.4 (7.4-10.4) fl Immature Gran % (Auto) 0.2 (0-0.5) % Neut % (Auto) 76.9 H (45.5-73.1) % Lymph % (Auto) 14.3 L (18.3-44.2) % [place] % (Auto) 7.5 (2.6-8.5) % Eos % (Auto) 0.6 (0-4.4) % Baso % (Auto) 0.5 (0.2-1.2) % Lymph # (Auto) 1.21 (0.9-3.2) K/mm3 [place] # (Auto) 0.6 (0.1-0.6) K/mm3 Eos # (Auto) 0.1 (0-0.3) K/mm3 Baso # (Auto) 0.0 (0.0-0.1) K/mm3 Abs Immat Gran (auto) 0.02 (0.00-0.031) K/mm3 Absolute Neuts (auto) 6.5 (1.3-6.7) K/mm3 Absolute Nucleated RBC 0.000 (0.0-0.012) K/mm3 Nucleated RBC % 0.0 (0.0-0.2) % Sodium 139 (137-145) mmol/L Potassium 4.6 (3.4-5.0) mmol/L Chloride 104 (98-107) mmol/L Carbon Dioxide 24 (22-30) mmol/L Anion Gap 11 (4-12) mmol/L BUN 31 H (7-17) mg/dL Creatinine 1.40 H (0.7-1.0) mg/dL Estim Creat Clear Calc 35 ml/min Estimated GFR 38 L (59 - ) Glucose 133 H (65-110) mg/dL POC Capillary Glucose 153 H (65-105) mg/dl Calcium 9.4 (8.4-10.2) mg/dL Total Bilirubin 1.3 (0.2-1.3) mg/dL AST 24 (14-36) U/L ALT 20 (6-35) U/L Alkaline Phosphatase 101 (38-126) U/L Total Protein 8.0 (6.3-8.2) g/dL Albumin 4.3 (3.5-5.1) g/dL Influenza A (RT-PCR) Negative (Negative) Influenza B (RT-PCR) Negative (Negative) RSV (RT-PCR) Negative (Negative) SARS-CoV-2 RNA (RT-PCR) Negative (Negative) Imaging Data Attestation: I personally reviewed and interpreted this imaging study as follows: Radiologist's impression: Impressions Chest X-Ray 07/23/24 19:00 IMPRESSION: Cardiomegaly No active pulmonary disease Head CT 07/23/24 21:12 IMPRESSION: Chronic small bilateral cerebellar hemispheric infarcts Cerebral atherosclerosis and chronic small vessel ischemic changes of the cerebral white matter No acute intracranial finding Discharge Plan Discharge Clinical Impression: Neuropathy, At risk for heart failure, Chronic kidney disease, stage 3 Patient Disposition: Home, Self-Care Condition: Stable Instructions: Antibiotic Form, Diabetic Neuropathy (ED) Prescriptions: No Action clopidogrel [Plavix] 75 mg Tablet 75 mg PO DAILY aspirin [Adult Low Dose Aspirin] 81 mg Tablet,Delayed Release (Dr/Ec) 81 mg PO DAILY citalopram 20 mg Tablet 10 mg PO DAILY pantoprazole 40 mg Tablet,Delayed Release (Dr/Ec) 40 mg PO DAILY nitroglycerin [Nitrostat] 0.4 mg Tablet, Sublingual 0.4 mg SUBLINGUAL Q5-15M PRN (Reason: Chest Pain) lisinopril 5 mg tablet 2.5 mg PO DAILY furosemide 40 mg Tablet 40 mg PO DAILY Qty: 30 0RF potassium chloride 20 mEq tablet extended release 20 meq PO DAILY Qty: 7 0RF glimepiride 4 mg tablet 4 mg PO BID metoprolol tartrate 25 mg tablet 25 mg PO BID rosuvastatin 20 mg Tablet 20 mg PO DAILY Januvia 100 mg tablet 100 mg PO DAILY insulin glargine [Basaglar KwikPen U-100 Insulin] 100 unit/mL (3 mL) insulin pen 45 unit SUBCUT HS Patient Comments: Patient unsure if she took last night but she knows she took it this morning at 0530 ezetimibe 10 mg tablet Follow-up/Referrals: Morgan,Bessie Soliz APRN [Primary Care Provider] -
[2024-07-23 19:10] VITALS: BP 144/73; PULSE 64; RESP 18; O2SAT 100
[2024-07-23 19:55] LABS: Influenza A QL RT-PCR Negative (Negative); Influenza B QL RT-PCR Negative (Negative); RSV RNA, RT-PCR Negative (Negative); SARS-CoV-2 RNA PCR Negative (Negative)
== END 2024-07-23 22:29 | disposition home or self-care (01) ==
PROVIDERS: Family Medicine; Emergency Provider Registered Nurse; PCP Midwife
DX: E11.42 Type 2 diabetes mellitus with diabetic polyneuropathy (principal); I13.0 Hypertensive heart and chronic kidney disease with heart failure and stage 1 through stage 4 chronic kidney disease, or unspecified chronic kidney disease; E11.22 Type 2 diabetes mellitus with diabetic chronic kidney disease; N18.30 Chronic kidney disease, stage 3 unspecified; I50.9 Heart failure, unspecified; Z20.822 Contact with and (suspected) exposure to COVID-19; I25.10 Atherosclerotic heart disease of native coronary artery without angina pectoris; I25.2 Old myocardial infarction; I34.0 Nonrheumatic mitral (valve) insufficiency; E78.5 Hyperlipidemia, unspecified; E55.9 Vitamin D deficiency, unspecified; G25.81 Restless legs syndrome; M19.90 Unspecified osteoarthritis, unspecified site; K21.9 Gastro-esophageal reflux disease without esophagitis; F41.8 Other specified anxiety disorders; Z95.5 Presence of coronary angioplasty implant and graft; Z95.0 Presence of cardiac pacemaker; Z86.2 Personal history of diseases of the blood and blood-forming organs and certain disorders involving the immune mechanism; Z79.899 Other long term (current) drug therapy; Z79.84 Long term (current) use of oral hypoglycemic drugs; Z79.4 Long term (current) use of insulin; Z79.02 Long term (current) use of antithrombotics/antiplatelets; Z79.82 Long term (current) use of aspirin; I67.2 Cerebral atherosclerosis
CPT/HCPCS: 36415; 70450; 71046; 80053; 82948; 85025; 87637; 93005; 99284

== ENCOUNTER 2024-10-21 23:23 | Emergency (ER) | payer OTHER, SELFPAY ==
--- NOTE | ~2024-10-21 | XR_ITS ---
EXAMINATION: XR chest 1V portable DATE: 10/22/2024 01:58 INDICATION: Shortness of breath. TECHNIQUE: A single frontal view of the chest was obtained. COMPARISON: Chest 2 views 07/23/2024 FINDINGS: There is no pneumonia, pleural effusion, or pneumothorax. Cardiomegaly is noted. Median ibrahima rnotomy wires are noted. Implanted epidural electrodes are noted. IMPRESSION: 1. Cardiomegaly. Reviewed, dictated and finalized at location [facility]. US ROUSTABOUT IMPRESSION: 1. Cardiomegaly.
--- NOTE | 2024-10-21 23:31 | ECG_ITS ---
Test Date: 2024-10-21 23:33:39 Measurements Intervals [place] Rate: 103 P: 165 [place]: 162 QRS: -58 QRSD: 138 T: 108 QT: 405 QTc: 530 Interpretive Statements ATRIAL SENSE- ELECTRONIC VENTRICULAR PACEMAKER BASELINE ARTIFACT- I, II, III, AVR, AVL, AVF, V1 UNDERLYING SINUS OE ECTOPIC ATRIAL TACHYCARDIA NO FURTHER INTERPRETATION IS POSSIBLE ABNORMAL ECG Compared to ECG 07/23/2024 18:16:45 SINUS OR ECTOPIC ATRIAL TACHYCARDIA NOW PRESENT Electronically Signed On 10-22-2024 07:06:48 NETWORK PROJECT MANAGER by Armando Goff D.O.
[2024-10-21 23:34] VITALS: BP 159/92; PULSE 102; RESP 17; TEMP 36.3; O2SAT 19
[2024-10-21 23:36] VITALS: PULSE 104; RESP 24
[2024-10-21 23:46] VITALS: PULSE 97; RESP 20
[2024-10-21 23:58] LABS: Basophils Percent Auto 0.4 % (0.2-1.2); Eosinophils Absolute Auto 0.1 K/mm3 (0-0.3); Eosinophils Percent Auto 1.6 % (0-4.4); Hematocrit 48.4 % (37.0-47.0); Hemoglobin 16.6 g/dL (12.0-15.0); Immature Granulocyte Absolute 0.03 K/mm3 (0.00-0.031); Immature Granulocyte Percent A 0.4 % (0-0.5); Lymphocytes Absolute Auto 1.64 K/mm3 (0.9-3.2); Lymphocytes Percent Auto 23.4 % (18.3-44.2); Mean Corpuscular HGB Conc 34.3 g/dl (32-36); Mean Corpuscular Hemoglobin 29.3 pg (26-34); Mean Corpuscular Volume 85.4 fl (80-100); Mean Platelet Volume 10.7 fl (7.4-10.4); Monocytes Absolute Auto 0.7 K/mm3 (0.1-0.6); Monocytes Percent Auto 9.3 % (2.6-8.5); Neutrophils Absolute Auto 4.6 K/mm3 (1.3-6.7); Neutrophils Percent Auto 64.9 % (45.5-73.1); Platelet Count Result 244 k/mm3 (150-375); Red Blood Count 5.67 M/mm3 (4.2-5.4); Red Cell Distribution Width 12.8 % (11.5-14.5)
[2024-10-22] VITALS (12 sets, daily range): BP systolic 120–159; BP diastolic 60–92; PULSE 95–104; RESP 14–27; TEMP 36.4; O2SAT 94–97
[2024-10-22 00:10] LABS: Alanine Aminotransferase 26 U/L (6-35); Albumin Level 4.2 g/dL (3.5-5.1); Alkaline Phosphatase 142 U/L (38-126); Anion Gap 13 mmol/L (4-12); Aspartate Amino Transferase 26 U/L (14-36); Bilirubin,Total 0.7 mg/dL (0.2-1.3); Blood Urea Nitrogen 21 mg/dL (7-17); Calcium 9.4 mg/dL (8.4-10.2); Carbon Dioxide 25 mmol/L (22-30); Chloride 98 mmol/L (98-107); Estimated Glomerular Filt Rate > 60; Glucose 256 mg/dL (65-110); Magnesium 1.5 mg/dL (1.6-2.3); Potassium 4.3 mmol/L (3.4-5.0); Sodium 136 mmol/L (137-145)
--- NOTE | 2024-10-22 00:15 | PC.NURSE ---
Report received from JOHN Diggs. Assumed care of patient at this time.
[2024-10-22 00:21] LABS: INR 0.9; Troponin I 0.017 ng/mL (0.000-0.034)
[2024-10-22 00:22] LABS: Partial Thromboplastin Time 28.2 Seconds (22.3-36.8)
--- OUTSIDE RECORDS SUMMARY | 2024-10-22 00:42 | XMS_ITS | Data Portability ---
Author Organization [place] - [facility] OFFICE Address [address] [place] [address] Care Team Providers Care Book Salesman Name Role Phone ROMANNICOLE JAMES Primary Care Provider [phone] MIMI MENON Primary Care Provider [phone] Assessment No assessment recorded. Plan of Treatment Reminders Order Date Submit Date Provider Last Modified By Organization Details Last Modified Time Details Appointments None record ed. Lab None record ed. Referral None record ed. Procedures None record ed. Surgeries None record ed. Imaging None record ed. Medication Orders None record ed. Patient TargetsNo targets recorded. Patient Instructions Encounter Date Encounter Id Patient Instructions Last Modified By Organization Details Last Modified Time 01/09/2021 [id number] learning about type 2 diabetes [email or web address] Not available 01/09/2021 15:04:19 type 2 diabetes: care instructions [email or web address] Not available 01/09/2021 15:04:20 high cholesterol : care instructions Not available 01/09/2021 15:04:20 heart valve disease: care instructions [email or web address] Not available 01/09/2021 15:04:20 mitral valve regurgitation: care instructions [email or web address] Not available 01/09/2021 15:04:20 Weight loss, 20 pounds Exercise advised Low cholesterol diet advised Low sodium diet advised. [email or web address] Not available 01/09/2021 15:03:54 This patient was seen and examined by Sachi Calhoun MSN, POOLROOM/POOLHALL MANAGER, CRYPTOLOGIC LINGUIST-C, the plan of care was discussed with collaborating physician prior to implementation, and note cosigned by Dr. Reza Victoria Not available 01/09/2021 15:04:04 06/24/2021 [id number] learning about type 2 diabetes [email or web address] Not available 06/24/2021 13:25:47 type 2 diabetes: care instructions [email or web address] Not available 06/24/2021 13:25:47 high cholesterol : care instructions [email or web address] Not available 06/24/2021 13:25:47 heart valve disease: care instructions [email or web address] Not available 06/24/2021 13:25:47 mitral valve regurgitation: care instructions [email or web address] Not available 06/24/2021 13:25:47 Weight loss 20 pounds Exercise advised Low cholesterol diet advised Low sodium diet advised. [email or web address] Not available 06/24/2021 13:25:46 10/06/2021 [id number] learning about type 2 diabetes [email or web address] Not available 10/06/2021 11:36:22 type 2 diabetes: care instructions [email or web address] Not available 10/06/2021 11:36:22 high cholesterol : care instructions [email or web address] Not available 10/06/2021 11:36:22 heart valve disease: care instructions [email or web address] Not available 10/06/2021 11:36:22 mitral valve regurgitation: care instructions [email or web address] Not available 10/06/2021 11:36:22 06/04/2022 [id number] Weight loss, pounds Advised against smoking Exercise advised Low cholesterol diet advised Low sodium diet advised. [email or web address] Not available 06/04/2022 16:26:01 Reason for Referral None Reported. Results Created Date Observation Date Name Description Value Unit Range Abnormal Flag Note LastModifiedBy Organization Detail LastModifiedTime 01/17/20 21 jerson ramos (PROC ) No observ ation record ed. [email or web address] Not Available 2020 12:14:30 01/30/2001/09/2021 elect jamison diogr am No observ ation record ed. [email or web address] Not Available 01/29 14:12:44 07/08/20 21 05/10/2021 , echoc ardio gram No observ ation record ed. [email or web address] Not Available 2020 16:22:25 07/15/20 21 , echoc ardio gram No observ ation record ed. [email or web address] Not Available 2021 18:27:51 06/05/20 22 06/04/2022 soren galvin am No observ ation record ed. [email or web address] Not Available 2021 10:16:27 07/31/20 22 07/07/2022 pacem richard (PROC ) No observ ation record ed. [email or web address] Not Available 2021 12:58:19 01/15/20 23 01/05/2023 pacem richard inter rogat ion (PROC ) No observ ation record ed. [email or web address] Not Available 2022 14:05:02 Result Notes None recorded. Problems Name Problem SNOMED Code Status Onset Date Resolution Date Notes Provider Name and Address Organization Details Recorded Time Mitral valve regurgitat ion 54063221 Active 2017 moderate to severe Angeli [place], [place] - [facility] 8 15:47:43 Essential hypertensi on 03684157 Active 2017 Angeli [place], [place] - [facility] 8 15:42:24 Type 2 diabetes mellitus 48448461 Active 2017 Ang[place] - [facility] 8 15:42:29 Hyperlipid emia 36149577 Active 2017 Ang[place], [place] - [facility] 8 15:42:36 Cardiac pacemaker in situ 430066636 Active 2017 [employer] Angeli [place] - [facility] 8 15:43:15 Obesity 762494196 Active 2017 Angeli [place] - [facility] 8 15:43:25 Depressive disorder 83081556 Active 2017 Angeli [place] - [facility] 8 15:43:33 Anxiety 51655431 Active 2017 Angeli Pritchard [place], [place] - [facility] 8 15:43:37 Neuropathy 790913045 Active 2017 Angeli [place], [place] - [facility] 8 15:48:34 Restless legs 98215595 Active 2017 Angeli [place] - [facility] 8 15:48:40 Low blood pressure 91321653 Active 2017 Angeli [place] [facility] 8 16:02:47 Coronary atheroscle rosis 615272541 Active 2017 Angeli [place] [facility] 8 16:12:32 Myocardial infarction 00392024 Active 2017 Norman [place] - [facility] 8 14:41:52 Gastroesop hageal reflux disease 837399014 Active 2018 Norman [place] - [facility] 9 12:49:21 Peripheral nerve disease 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 2018 Norman [place] [facility] 9 12:49:57 Sick sinus syndrome 35405711 Active 2018 Norman [place] [facility] 9 12:50:40 Congestive heart failure 58614120 Active 2019 Norman [place] [facility] 0 14:39:55 Cardiac pacemaker procedure Active 2019 Norman [place] [facility] 0 14:40:46 Kidney disease 37310784 Active 2019 Norman [place] [facility] 0 14:41:09 Chronic kidney disease 157868930 Active 2019 Norman [place] [facility] 0 15:04:42 Anemia 444080955 Active 2019 Norman [place] [facility] 0 15:05:27 Arthritis 1247131 Active 2019 Norman [place] [facility] 0 15:05:38 Chest pain 19351902 Active 2019 Norman [place] [facility] 0 15:05:55 Morbid obesity 495891871 Active 2019 Norman [place] [facility] 0 15:06:45 Obsessive- compulsive disorder 365907055 Active 2019 Norman [place] - [facility] 0 15:07:07 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 Procedures Surgical History Date Name Laterality Status Provider Name and Address Organization Details Recorded Time 08/30/19 18 Cardiac Catheterization completed [facility] - [facility] 12/23/2017 15:14:51 08/30/19 18 Stent completed [facility] - [facility] 05/29/2019 12:46:13 08/30/19 13 Pacemaker completed [facility] - [facility] 12/23/2017 15:14:33 08/30/19 05 Pacemaker completed [facility] - [facility] 12/23/2017 15:14:29 08/30/18 94 Caesarean Section completed [facility] - [facility] 12/23/2017 15:14:16 coronary artery bypass graft completed [facility] - [facility] 09/10/2019 14:43:01 Coronary Artery Stent completed [facility] - [facility] 01/20/2020 15:08:50 cardiac pacemaker procedure completed [facility] - [facility] 01/20/2020 15:09:11 coronary artery bypass graft completed [facility] - [facility] 01/20/2020 15:09:27 Imaging Results Imaging Date Name Status LastModified by Organization Details LastModified Time 01/16/2021 pacemaker (PROC) completed [email or web address] Informat ion not available 01/16/2021 12:14:30 01/09/2021 electrocardiogram completed [email or web address] Informa tion not available 01/29/2021 14:12:44 05/10/2021 US, echocardiogram completed Inform ation not available 07/08/2021 16:22:25 07/15/2021 US, echocardiogram completed [email or web address] Inform ation not available 09/16/2021 18:27:51 06/04/2022 electrocardiogram completed Informa tion not available 06/05/2022 10:16:27 07/07/2022 pacemaker (PROC) completed [email or web address] Informat ion not available 07/31/2022 12:58:19 01/05/2023 pacemaker interrogation (PROC) completed Information not available 01/14/2023 14:05:02 Procedure Notes None recorded. Medical Equipment None Reported. Allergies Allergen ID Allergen Name Allergen Category Reaction Reaction Severity Criticality Documentation Date Start Date Code Code System Note Provider Name and Address Organization Details Recorded Time 6165 azithromy jesus medicatio n vomiting severe Not available 12/23/2017 [address]05 RxNorm [place] [facility] 8 15:06:53 Medications Name Sig Start Date Stop Date Status Note LastModified by Organization Details LastModified Time atorvasta tin 40 mg tablet Take 1 tablet every day by oral route. 06/11 completed Pt is taking Not Available Not Available Not Available metformin 500 mg tablet 2 tabs bid 08/31 completed stopped due to CKD Not Available Not Available Not Available atorvasta tin 20 mg tablet 1 qd 06/27 completed Not Available Not Available Not Available ropinirol e 1 mg tablet OD 10/06 completed 2mg tablet 2 x daily Not Available Not Available Not Available clindamyc in HCl 300 mg capsule TAKE 1 CAPSULE BY MOUTH EVERY 6 HOURS 10/06 completed Not Available Not Available Not Available polyethyl radha glycol 3350 17 gram oral powder packet 17 g every morning 05/30 completed No longer take it 11/22/18 : [place] Not Available Not Available Not Available cetirizin e 10 mg tablet Take 1 tablet every day by oral route. 10/06 completed Not Available Not Available Not Available nystatin 100,000 unit/gram topical ointment APPLY EXTERNAL LY TO THE AFFECTED AREA TWICE DAILY 01/05 completed Not Available Not Available Not Available fluconazo le 150 mg tablet TAKE 1 TABLET BY MOUTH NOW. MAXIMUM. REPEAT FOR 1 TIME AFTER 72 HOURS IF NOT EFFECTIV E 10/06 completed Not Available Not Available Not Available benzonata te 200 mg capsule TAKE 1 CAPSULE BY MOUTH THREE TIMES DAILY FOR 7 DAYS NEEDED 10/06 completed pt no longer takes 06/24/21 nj Not Available Not Available Not Available citalopra m 10 mg tablet TAKE 1 TABLET BY MOUTH EVERY DAY 01/05 completed Not Available Not Available Not Available Nystop 100,000 unit/gram topical powder APPLY TOPICALL Y AA BID 01/05 completed Not Available Not Available Not Available prednison e 20 mg tablet TAKE 3 TABLETS BY MOUTH EVERY DAY FOR 5 DAYS 10/06 completed Not Available Not Available Not Available gabapenti n 400 mg capsule PRN 01/22 completed stopped Not Available Not Available Not Available miconazol e nitrate 2 % vaginal cream 06/27 completed Not Available Not Available Not Available clobetaso l 0.05 % topical cream DEBBIE THIN LAYER EXT AA BID 10/06 completed Not Available Not Available Not Available acetamino phen 300 mg-codein e 30 mg tablet 05/30 completed Not Available Not Available Not Available clopidogr el 75 mg tablet 1 by mouth daily active Not Available Not Available No t Available ciproflox acin 500 mg tablet 05/30 completed Not Available Not Available Not Available aspirin 81 mg tablet,de layed release TAKE 1 TABLET BY MOUTH EVERY DAY active Not Available Not Available No t Available triamcino lone acetonide 0.1 % topical cream prn 02/11 completed Not Available Not Available Not Available citalopra m 20 mg tablet TAKE 1 TABLET BY MOUTH EVERY DAY NEEDED active Not Available Not Available No t Available amitripty line 25 mg tablet 02/11 completed not taking Not Available Not Available Not Available magnesium oxide 400 mg (241.3 mg magnesium ) tablet TAKE 1 TABLET BY MOUTH EVERY DAY 01/05 completed Not Available Not Available Not Available ropinirol e 2 mg tablet TAKE 1 TABLET BY MOUTH THREE TIMES DAILY active Not Available Not Available No t Available pantopraz ole 40 mg tablet,de layed release TAKE 1 TABLET BY MOUTH EVERY DAY active Not Available Not Available No t Available triamcino lone acetonide 0.1 % topical ointment 02/11 completed Not Available Not Available Not Available lisinopri l 10 mg tablet 1 qd 08/31 completed decrease d to 2.5 mg Not Available Not Available Not Available glimepiri de 4 mg tablet TAKE 1 TABLET BY MOUTH TWICE DAILY active Not Available Not Available No t Available nitroglyc geovanny 0.4 mg sublingua l tablet Place 1 tablet by sublingu al route. active Not Available Not Available No t Available gabapenti n 300 mg capsule tid 05/30 completed No longer take it 11/22/18 : MA Not Available Not Available Not Available monteluka st 10 mg tablet 1 tab qd 05/30 completed Not Available Not Available Not Available alcohol swabs USE DIRECTED TO CHECK BLOOD SUGAR THREE TIMES DAILY 10/06 completed Not Available Not Available Not Available lisinopri l 5 mg tablet TAKE 1 TABLET BY MOUTH DAILY active Not Available Not Available No t Available furosemid e 20 mg tablet 05/30 completed No longer take it 11/22/18 : MA Not Available Not Available Not Available ergocalci ferol (vitamin D2) 1,250 mcg (50,000 unit) capsule 1 weekly 06/04 completed pt no longer takes 06/24/21 nj Not Available Not Available Not Available methylpre dnisolone 4 mg tablets in a dose pack 05/30 completed Not Available Not Available Not Available albuterol sulfate HFA 90 mcg/actua tion aerosol inhaler INHALE 2 PUFFS BY MOUTH EVERY 4 HOURS NEEDED 10/06 completed pt no longer takes 06/24/21 nj Not Available Not Available Not Available ipratropi um bromide 42 mcg (0.06 %) nasal spray 09/12 completed No longer take it 11/22/18 : MA Not Available Not Available Not Available cefdinir 300 mg capsule 05/30 completed No longer take it 11/22/18 : MA Not Available Not Available Not Available fluticaso ne propionat e 50 mcg/actua tion nasal spray,hayes asifchapito 05/30 completed No longer take it 11/22/18 : MA Not Available Not Available Not Available lisinopri l 2.5 mg tablet TAKE 1 TABLET BY MOUTH DAILY 01/05 completed Not Available Not Available Not Available amoxicill in 875 mg-potass ium clavulana te 125 mg tablet TAKE 1 TABLET BY MOUTH EVERY 12 HOURS FOR 10 DAYS 10/06 completed Not Available Not Available Not Available rosuvasta tin 20 mg tablet TAKE 1 TABLET BY MOUTH EVERY DAY active Not Available Not Available No t Available metoprolo l tartrate 25 mg tablet TAKE 1 TABLET BY MOUTH TWICE DAILY active Not Available Not Available No t Available topiramat e 50 mg tablet TAKE 1 TABLET BY MOUTH EVERY DAY 10/06 completed Not Available Not Available Not Available [facility] Nasal Cpap System device 06/11 completed Pt has NOT been using Not Available Not Available Not Available nitrofura ntoin monohydra te/macroc rystals 100 mg capsule 05/30 completed No longer take it 11/22/18 : MA Not Available Not Available Not Available chlorhexi dine gluconate 0.12 % mouthwash RINSE MOUTH TWICE DAILY FOR 14 DAYS DIRECTED 10/06 completed pt may need refill 06/24/20 21 Not Available Not Available Not Available Metamucil PRN 10/06 completed Not Available Not Available Not Available [facility] Nasal Cpap System 01/23 completed Not Available Not Available Not Available Januvia 100 mg tablet TAKE 1 TABLET BY MOUTH EVERY DAY active Not Available Not Available No t Available Symbicort 80 mcg-4.5 mcg/actua tion HFA aerosol inhaler INHALE 2 PUFFS BY MOUTH TWICE DAILY 01/05 completed Not Available Not Available Not Available omeprazol e 20 mg tablet,de layed release 02/11 completed not taking Not Available Not Available Not Available OneTouch Verio test strips TEST THREE TIMES DAILY 01/05 completed Not Available Not Available Not Available Virtussin AC 10 mg-100 mg/5 mL oral liquid 06/27 completed No longer take it 11/22/18 : MA Not Available Not Available Not Available Jardiance 10 mg tablet Take 1 tablet every day by oral route. 06/11 completed PT NOT TAKING; was told to stop when she visited ER b/c her kidney levels were high 06/11/20 SP; To start and possibly increase as pt does have moserate CAD and DMII which is uncontro lled. Pt has a new PCP who will help her titrate her Insulins Lantus on 20 units at this time Not Available Not Available Not Available OneTouch Verio Flex Meter USE DIRECTED 01/05 completed Not Available Not Available Not Available Salena Castillo U-100 Insulin 100 unit/mL (3 mL) subcutane ous ADMINIST ER 45 UNITS UNDER THE SKIN AT BEDTIME active Not Available Not Available No t Available TRUEplus Pen Needle 31 gauge x 5/16 USE DAILY FOR INSULIN ADMINIST RATION DIRECTED 01/05 completed Not Available Not Available Not Available TRUEplus Pen Needle 31 gauge x 1/4 05/30 completed Not Available Not Available Not Available TRUEplus Pen Needle 31 gauge x 3/16 USE TWICE DAILY DIRECTED active Not Available Not Available No t Available OneTouch Delica Plus Lancet 33 gauge TEST THREE TIMES DAILY 01/05 completed Not Available Not Available Not Available Vitals Date Recorded Body height Respiratory rate Body mass index (BMI) Body weight Body temperature Oxygen saturation Oxygen saturation in Arterial blood by Pulse oximetry Heart rate Systolic blood pressure Diastolic blood pressure Provider Name and Address Organization Details Last Updated DateTime 1 154.94 cm 18 /min 34.9 kg/m2 49662.7 9 g 97.6 [degF] 97 % 97 % 92 /min 124 mm[Hg] 72 mm[Hg] JAMEE DURAN [facility] 1 12:39:02 Date Recorded Body height Oxygen saturation Oxygen saturation in Arterial blood by Pulse oximetry Heart rate Body mass index (BMI) Body weight Systolic blood pressure Diastolic blood pressure Provider Name and Address Organization Details Last Updated DateTime 1 154.94 cm 94 % 94 % 85 /min 35.4 kg/m2 92947.1 3 g 122 mm[Hg] 74 mm[Hg] ALYSSA ESTEBAN [facility] 1 12:56:34 Date Recorded Body height Body mass index (BMI) Body weight Heart rate Oxygen saturation Oxygen saturation in Arterial blood by Pulse oximetry Systolic blood pressure Diastolic blood pressure Provider Name and Address Organization Details Last Updated DateTime 2 154.94 cm 35 kg/m2 98392.5 9 g 88 /min 97 % 97 % 130 mm[Hg] 80 mm[Hg] Kalyan Marcial [facility] 2 11:25:40 Date Recorded Body height Body mass index (BMI) Body weight Heart rate Respiratory rate Oxygen saturation Oxygen saturation in Arterial blood by Pulse oximetry Systolic blood pressure Diastolic blood pressure Provider Name and Address Organization Details Last Updated DateTime 2 154.94 cm 35 kg/m2 11055.5 9 g 94 /min 16 /min 94 % 94 % 118 mm[Hg] 78 mm[Hg] Duane Campos [facility] 2 16:20:38 Date Recorded Body height Body mass index (BMI) Body weight Heart rate Oxygen saturation Oxygen saturation in Arterial blood by Pulse oximetry Systolic blood pressure Diastolic blood pressure Provider Name and Address Organization Details Last Updated DateTime 2 154.94 cm 33.8 kg/m2 36415.0 3 g 82 /min 97 % 97 % 126 mm[Hg] 68 mm[Hg] Leticia Oneil [facility] 2 16:56:06 Social History Question Answer Notes LastModified by Organizat ion Details LastModified Time Tobacco Smoking Status Never Smoker Not Available [facility] 07/02/2020 03:30:41 Do You Or Have You Ever Used E-cigarettes Or Vape? Never Used Electronic Cigarettes [id number] Information not available 07/02/2020 What Was The Date Of Your Most Recent Tobacco Screening? 11/22/2018 [id number] Information not available 07/02/2020 Do You Or Have You Ever Used Smokeless Tobacco? Never Used Smokeless Tobacco [id number] Information not available 07/02/2020 How Much Tobacco Do You Smoke? No [id number] Information not available 07/02/2020 How Many Years Have You Smoked Tobacco? 0 [email or web address] Information not available 12/16/2020 Sex: Unknown Functional Status None recorded. Mental Status None recorded. Family History Relationship Description Onset Age of this Age Resolved Age Notes LastModified by Organization Details LastModified Time Paternal Grandmother Diabetes mellitus [email or web address] Not available 2017 15:12:45 Paternal Grandmother History of hypertension [email or web address] Not available 15:13:10 Paternal Grandmother Hypercholest erolemia emushill Not available 2017 15:13:37 Father History of hypertension [email or web address] Not available 15:13:10 Mother Hypercholest erolemia emushill Not available 2017 15:13:37 Mother Peripheral vascular disease [email or web address] Not available 2018 12:59:35 Sister Diabetes mellitus [email or web address] Not available 2018 13:00:13 Medical History Condition Response Depression Y Genitourinary Disease Y High Cholesterol Y Arrhythmia Y Kidney Disease Y Diabetes Y Myocardial Infarction Y Valvular Heart Disease Y Hyperlipidemia Y Hypertension Y Gynecological HistoryNo gynecological history recorded. Obstetrics History GPAL:G 0 P 0 0 0 0 Past Encounters Encounter ID Performer Location Encounter Start Date Encounter Closed Date Diagnosis/Indication Diagnosis SNOMED-CT Code Diagnosis ICD10 Code Diagnosis Note [id number] Angeli [facility] [address] [place] [address] 12/23/2017 14:16:37 12/28/2017 16:34:55 Cardiac pacemaker in situ 403411927 Z95.0 Pacer follow up was done today, it seems to be functionin g well, no new events Hyperlipidemia 88984337 E78.5 On Atorvastat in 20 Needs to keep LDL less than 70, and HDL more than 40 Will get FLP from [facility] Mitral merlin ve regurgitation 16290185 I34.0 Moderate to severeShe is asymptomat ic Type 2 richard betes mellitus 94620283 E11.9 Discussed importance of adequate glycemic control to minimize cardiovasc ular disease progressio n. A1C goal of < 7% for type 2 DM Low blood pressure 89302 003 I95.9 Asymptomat ic with thatWill decrease Lisinopril to 2.5 mg QD Coronary atherosclerosis 940355822 I25.10 s/p stent placement to the mid and distal section of the first diagonal branchCont inue ASA and Plavix Myocardial infarction 22 737300 I21.9 Recent VT, s/p Di stent, stable now [id number] Reza Victoria MD [facility] [address] [place] [address] 02/11/2018 12:01:58 02/21/2018 17:25:51 Myocardial infarction 14871526 I21.9 Recent VT, s/p Di stent, stable now Low blood pressure 63145 003 I95.9 Asymptomat ic with that Lisinopril to 2.5 mg QD Cardiac pa cemaker in situ 338642653 Z95.0 Pacer follow up was done today, it seems to be functionin g well, no new events Hyperlipidemia 82398716 E78.5 On Atorvastat in 20 Needs to keep LDL less than 70, and HDL more than 40 Will give order for FLP Mitral merlin ve regurgitation 80239983 I34.0 Moderate to severeShe is asymptomat ic Type 2 richard betes mellitus 44451748 E11.9 Discussed importance of adequate glycemic control to minimize cardiovasc ular disease progressio n. A1C goal of < 7% for type 2 DM Coronary atherosclerosis 617072292 I25.10 s/p stent placement to the mid and distal section of the first diagonal branchCont inue ASA and Plavix [id number] Reza Victoria MD [facility] [place] [address] 03/22/2018 14:58:11 03/24/2018 18:30:42 Myocardial infarction 60780327 I21.9 Recent VT, s/p D1 stent, stable now Needs to keep LDL less than 70, and HDL more than 40 Will get lipid profile results from PCP - 03/18/18 Low blood pressure 97824 003 I95.9 Asymptomat ic with that Lisinopril to 2.5 mg QD Cardiac pa cemaker in situ 977065087 Z95.0 Pacer follow up here Hyperlipidemia 71130627 E78.5 On Atorvastat in 20 Needs to keep LDL less than 70, and HDL more than 40 Will get lipid profile results from PCP - 03/18/18 Mitral merlin ve regurgitation 43326025 I34.0 Moderate to severe. She is asymptomat ic Type 2 richard betes mellitus 68980253 E11.9 Discussed importance of adequate glycemic control to minimize cardiovasc ular disease progressio n. A1C goal of < 7% for type 2 DM Coronary atherosclerosis 568462037 I25.10 s/p stent placement to the mid and distal section of the first diagonal branch Continue ASA and Plavix Doing cardiac rehab at [place] [address] Reza Victoria MD [facility] [place] [address] 11/22/2018 16:42:13 11/22/2018 18:10:48 Myocardial infarction 13528614 I21.9 Needs to keep LDL less than 70, and HDL more than 40 Low blood pressure 57845 003 I95.9 Asymptomat ic with that Lisinopril to 2.5 mg QD Cardiac pa cemaker in situ 176492216 Z95.0 Pacer follow up here Hyperlipidemia 10602061 E78.5 On Atorvastat in 20 Needs to keep LDL less than 70, and HDL more than 40Will get fating lipids for follow up Mitral merlin ve regurgitation [id number] I34.0 Moderate to severe. Echo FU She is asymptomat ic Type 2 richard betes mellitus 84934457 E11.9 Discussed importance of adequate glycemic control to minimize cardiovasc ular disease progressio n. A1C goal of < 7% for type 2 DM Coronary atherosclerosis 198560856 I25.10 s/p stent placement to the mid and distal section of the first diagonal branch Continue ASA and Plavix [address] Reza Victoria MD [facility] [address] [place] [address] 04/04/2019 14:25:10 04/16/2019 22:27:15 Coronary atherosclerosis 447371640 I25.10 s/p stent placement (11/2017) to the mid and distal section of the first diagonal branchCont inue ASA and Plavix Myocardial infarction 22 149356 I21.9 Needs to keep LDL less than 70, and HDL more than 40 Cardiac pa cemaker in situ 439334633 Z95.0 Hyperlipidemia 12018823 E78.5 Needs to keep LDL less than 70, and HDL more than 40 01/04/19: TC 181.3 ,TG 128,HDL 56 ,LDL 118On Atorvastat in 20mg daily. Will increase to 40mg and recheck fasting lipids at follow up. Mitral merlin ve regurgitation 80451329 I34.0 Echocardio gram 03/22/19 : LV chamber size is normal There is normal global systolic function and contracili ty The estimated left ventricle ejection fraction is 55-60% MIld MR. Type 2 richard betes mellitus 21600914 E11.9 Discussed importance of adequate glycemic control to minimize cardiovasc ular disease progressio n. A1C goal of < 7% for type 2 DM 14318 Reza Victoria MD [facility] [address] [place] [address] 05/30/2019 13:53:45 05/30/2019 15:51:59 Coronary atherosclerosis 925880460 I25.10 s/p stent placement (11/2017) to the mid and distal section of the first diagonal branch s/p NSTEMI (05/22/2019 ), s/p CATH done in 05/22/19 reveled chronic total occlusion of the distal diagonal branch chest.Cont inue ASA and Plavix, Maximal medical treatment. Cardiac rehab. Myocardial infarction 22 194815 I21.9 NSTEMI 05/22/2019 Cardiac pa cemaker in situ 305443111 Z95.0 Hyperlipidemia 39764515 E78.5 Needs to keep LDL less than 70, and HDL more than 40 01/04/19: TC 181.3 ,TG 128,HDL 56 ,LDL 118On Atorvastat in 20mg, Increased to 40mg (03/2019). Will recheck fasting lipids at follow up. Mitral merlin ve regurgitation 29849701 I34.0 Echocardio gram 03/22/19 : LV chamber size is normal There is normal global systolic function and contracili ty The estimated left ventricle ejection fraction is 55-60% MIld MR. Type 2 richard betes mellitus 34024077 E11.9 Discussed importance of adequate glycemic control to minimize cardiovasc ular disease progressio n. A1C goal of < 7% for type 2 DM [address] james kahn lisset [facility] [address] [place] [address] 06/27/2019 09:19:39 06/27/2019 14:27:34 Coronary atherosclerosis 023288951 I25.10 s/p stent placement (11/2017) to the mid and distal section of the first diagonal branch s/p NSTEMI (05/22/2019 ), s/p CATH done in 05/22/19 reveled chronic total occlusion of the distal diagonal branch chest.Cont inue ASA and Plavix, Maximal medical treatment. advised Cardiac rehab. Myocardial infarction 22 559600 I21.9 NSTEMI 05/22/2019 Cardiac pa cemaker in situ 338427537 Z95.0 Hyperlipidemia 01035281 E78.5 Needs to keep LDL less than 70, and HDL more than 40 01/04/19: TC 181.3 ,TG 128,HDL 56 ,LDL 118On Atorvastat in 20mg, Increased to 40mg (03/2019). Will recheck fasting lipids at follow up. Mitral merlin ve regurgitation 85076531 I34.0 Echocardio gram 03/22/19 : LV chamber size is normal There is normal global systolic function and contracili ty The estimated left ventricle ejection fraction is 55-60% MIld MR. Type 2 richard betes mellitus 27463762 E11.9 Discussed importance of adequate glycemic control to minimize cardiovasc ular disease progressio n. A1C goal of < 7% for type 2 DM most recent 9.6 Insulin 15 units q day thus far recently increased by PCP. Patient states that she has not been checking her BS but continues to take her insulin. Patient also states that she is enrolled in a diabetes class. Subject [id number] COORDINATE -DM trial protocol [id number] Discussed screening with Investigat or Dr Victoria prior to the visit and spoke with subject during visit. COORDINATE -DM educationa l trial with goals to optimize glycemic control, BP control, LDL reduction and reduction of cardiac events. Utilizing intensive education model per [facility] clinical research and Cardio protective hypoglycem ic agents, GLP1s vs SGLT-2s in the future if possible, high dose statins, and continuing Sid inhibitor. ICF procedure completed per GCP guidelines . See study source Pt received copy of ICF and other signed documents. PI feels that the patient may benefit from the trial or may not depending upon compliance and involvemen t, PI did not feel that there was any safety risk for the subject to participat e. Increased Atorvastat in to 40 mg called pharmacy ( LDL 118) HDL 58, continue SID/ HgA1C 8-9.6Incre ased Metformin 1000 q AM and 500 q PM Pt to check FBS daily x 5 dats. PA to phone and discuss results and titrate insulin inf need be /CONT Basiglar 15 units q PM. Informed Pharmacy of the changes today ( 06-30-19 ) addendumAb ove discussed with OA who agrees with assessment . patient f/u per standard of care with additional 3 month calls for the trial. Dr Whitaker to review all source and electronic data for sponsor review ECGulve 06-27-19 06-30-19 addendum [id number] Richmond Nobles [facility] [address] [place] [address] 09/12/2019 14:51:46 09/12/2019 16:39:28 Coronary atherosclerosis 822493982 I25.10 s/p stent placement (11/2017) to the mid and distal section of the first diagonal branch s/p NSTEMI (05/22/2019 ), s/p CATH done in 05/22/19 reveled chronic total occlusion of the distal diagonal branch chest.Cont inue ASA and Plavix, Maximal medical treatment. advised Cardiac rehab. Myocardial infarction 22 147320 I21.9 NSTEMI 05/22/2019 Cardiac pa tess in situ 179821825 Z95.0 Hyperlipidemia 57871587 E78.5 Needs to keep LDL less than 70, and HDL more than 40 01/04/19: TC 181.3 ,TG 128,HDL 56 ,LDL 118On Atorvastat in 20mg, Increased to 40mg (03/2019). Will recheck fasting lipids at follow up. Mitral merlin ve regurgitation 22468976 I34.0 Echocardio gram at [place] showed possible mitral stenosis (calcific) .Will Proceed with ADARSH to better assess stenosis and regurgitat ion Type 2 richard betes mellitus 89947069 E11.9 Discussed importance of adequate glycemic control to minimize cardiovasc ular disease progressio n. A1C goal of < 7% for type 2 DM most recent 9.6 Insulin 15 units q day thus far recently increased by PCP. Patient states that she has not been checking her BS but continues to take her insulin. Patient also states that she is enrolled in a diabetes class. Subject [id number] COORDINATE -DM trial protocol [id number] Discussed screening with Investigat or Dr Victoria prior to the visit and spoke with subject during visit. COORDINATE -DM educationa l trial with goals to optimize glycemic control, BP control, LDL reduction and reduction of cardiac events. Utilizing intensive education model per [facility] clinical research and Cardio protective hypoglycem ic agents, GLP1s vs SGLT-2s in the future if possible, high dose statins, and continuing Sid inhibitor. ICF procedure completed per GCP guidelines . See study source Pt received copy of ICF and other signed documents. PI feels that the patient may benefit from the trial or may not depending upon compliance and involvemen t, PI did not feel that there was any safety risk for the subject to participat e. Increased Atorvastat in to 40 mg called pharmacy ( LDL 118) HDL 58, continue SID/ HgA1C 8-9.6Incre ased Metformin 1000 q AM and 500 q PM Pt to check FBS daily x 5 dats. PA to phone and discuss results and titrate insulin inf need be /CONT Basiglar 15 units q PM. Informed Pharmacy of the changes today ( 06-30-19 ) addendumAb ove discussed with OA who agrees with assessment . patient f/u per standard of care with additional 3 month calls for the trial. Dr Whitaker to review all source and electronic data for sponsor review ECGulve 06-27-19 06-30-19 addendum Congestive heart failure 13827254 I50.9 [address] Reza Victoria MD [facility] [address] [place] [address] 09/26/2019 10:22:50 09/26/2019 21:12:58 Mitral valve regurgitation 68106054 I34.0 ADARSH 09/18/2019 Moderate-s evere mitral valve calcificat ion, Moderate MR, Moderate mitral valve stenosis, Peak gradient 16mmHg, mean gradient of 9mmHg. Coronary atherosclerosis 078108195 I25.10 s/p stent placement (11/2017) to the mid and distal section of the first diagonal branch s/p NSTEMI (05/22/2019 ), s/p CATH done in 05/22/19 reveled chronic total occlusion of the distal diagonal branch chest.Cont inue ASA and Plavix, Maximal medical treatment. advised Cardiac rehab at [place]. Myocardial infarction 22 174735 I21.9 NSTEMI 05/22/2019 Cardiac pa cemaker in situ 996990751 Z95.0 Hyperlipidemia 66717561 E78.5 Needs to keep LDL less than 70, and HDL more than 40 01/04/19: TC 181.3 ,TG 128,HDL 56 ,LDL 118On Atorvastat in 20mg, Increased to 40mg (03/2019); patient reports this made her feel sick, was taking 1/2 tab. Needs to be on full dose.Will recheck fasting lipids at follow up. Type 2 richard betes mellitus 77581066 E11.9 Treatment and evaluation by primary care doctor. Discussed importance of adequate glycemic control to minimize cardiovasc ular disease progressio n. A1C goal of < 7% for type 2 DM [address] Reza Victoria MD [facility] [address] [place] [address] 06/11/2020 17:14:45 06/11/2020 18:10:42 Mitral valve regurgitation 53990693 I34.0 ADARSH 09/18/2019 : Moderate to severe mitral valve calcificat ion, moderate MR, moderate mitral valve stenosis, peak gradient 16mmHg, mean gradient of 9mmHg. Coronary atherosclerosis 506522727 I25.10 s/p stent placement (11/2017) to the mid and distal section of the first diagonal branch s/p NSTEMI ( 9), [facility] 05/22/19 revealed chronic total occlusion of the distal diagonal branch chest.Cont inue ASA and PlavixMaxi mal medical treatment with risk factor modificati on Myocardial infarction 22 874730 I21.9 NSTEMI 05/22/2019 Cardiac pa cemaker in situ 253000795 Z95.0 Hyperlipidemia 56118173 E78.5 Needs to keep LDL less than 70, and HDL more than 40 01/04/2019 LDL 118Will switch atorvastat in 40mg to rosuvastat in 20mg 06/11/2020 Will get fasting lipids for follow-up Type 2 richard betes mellitus 01193629 E11.9 Treatment and evaluation by primary care doctor Discussed importance of adequate glycemic control to minimize cardiovasc ular disease progressio n, A1C goal of < 7% for type 2 DM. Obstructiv e sleep apnea syndrome 39416182 G47.33 Persistent dyspnea on exertion likely 2/2 CPAP noncomplia nceWill refer to [facility] Obesity 231716733 E66.9 20lb weight loss recommende d over the next 2 months [address] Sachi [facility] Office [address] [place] [address] 01/09/2021 12:29:07 01/09/2021 13:20:44 Mitral valve regurgitation 00847899 I34.0 ADARSH 09/18/2019 : Moderate to severe mitral valve calcificat ion, moderate MR, moderate mitral valve stenosis, peak gradient 16mmHg, mean gradient of 9mmHg. Obtain echo to evaluate for structural /functiona l disease. Coronary atherosclerosis 403335005 I25.10 s/p stent placement (11/2017) to the mid and distal section of the first diagonal branch s/p NSTEMI ( 9), [facility] 05/22/19 revealed chronic total occlusion of the distal diagonal branch chest. Continue ASA and Plavix Maximal medical treatment with risk factor modificati on Treadmill Myoview Stress test, has high [place] Risk score. Has Known CAD, or CAD risk equivalent . To look for any ischemia. Myocardial infarction 22 186669 I21.9 NSTEMI 05/22/2019 Cardiac pa cemaker in situ 643998275 Z95.0 Hyperlipidemia 54069235 E78.5 Needs to keep LDL less than 70, and HDL more than 40 01/04/2019 LDL 118 Will switch atorvastat in 40mg to rosuvastat in 20mg 06/11/2020 Will get fasting lipids for follow-up Type 2 richard betes mellitus 99007948 E11.9 Treatment and evaluation by primary care doctor Discussed importance of adequate glycemic control to minimize cardiovasc ular disease progressio n, A1C goal of < 7% for type 2 DM. Obstructiv e sleep apnea syndrome 95351335 G47.33 Persistent dyspnea on exertion likely 2/2 CPAP noncomplia nce Obesity 998269563 E66.9 20lb weight loss recommende d over the next 2 months [address] Reza Victoria MD [place] [address] [place] [address] 06/24/2021 12:04:51 06/24/2021 13:33:32 Cardiac pacemaker in situ 074862546 Z95.0 Placed 2004, pacer follow up here Chronic ki dney disease 600843215 N18.9 Cr 1.0 in 2020 Type 2 richard betes mellitus 12488749 E11.9 Treatment and evaluation by primary care doctor Discussed importance of adequate glycemic control to minimize cardiovasc ular disease progressio n, A1C goal of < 7% for type 2 DM. Sick sinus syndrome 3608 3008 I49.5 Peripheral nerve disease 139790223 G64 Hyperlipidemia 93296070 E78.5 Needs to keep LDL less than 70, and HDL more than 40 01/04/2019 LDL 118 Will switch atorvastat in 40mg to rosuvastat in 20mg 06/11/2020 Will get fasting lipids for follow-up Essential hypertension 35747632 I10 Previously controlled last visit 124/72, pulse 92. Mitral merlin ve regurgitation 08403286 I34.0 ADARSH 09/18/2019 : Moderate to severe mitral valve calcificat ion, moderate MR, moderate mitral valve stenosis, peak gradient 16mmHg, mean gradient of 9mmHg.Obta in echo to evaluate for structural /functiona l disease. Coronary atherosclerosis 147235392 I25.10 s/p stent placement (11/2017) to the mid and distal section of the first diagonal branch Myocardial infarction 22 439253 I21.9 NSTEMI 05/22/2019 Obstructiv e sleep apnea syndrome 08999636 G47.33 Persistent dyspnea on exertion likely 2/2 OSAneeds to se Sleep doctor Obesity 087565415 E66.9 20lb weight loss recommende d over the next 2 months [address] MD Denise [place] [address] [place] [address] 10/06/2021 11:06:47 10/06/2021 12:13:59 Cardiac pacemaker in situ 413779444 Z95.0 Placed 2004, pacer follow up here Chronic ki dney disease 587660443 N18.9 Cr 1.0 in 2019 Type 2 richard betes mellitus 77722954 E11.9 Treatment and evaluation by primary care doctor Discussed importance of adequate glycemic control to minimize cardiovasc ular disease progressio n, A1C goal of < 7% for type 2 DM. Sick sinus syndrome 3608 3008 I49.5 s/p Pacer Peripheral nerve disease 137193240 G64 Coronary atherosclerosis 268874133 I25.10 s/p stent placement (11/2017) to the mid and distal section of the first diagonal branch Hyperlipidemia 53512946 E78.5 Needs to keep LDL less than 70, and HDL more than 40 01/04/2019 LDL 118 Will switch atorvastat in 40mg to rosuvastat in 20mg 06/11/2020 Will get fasting lipids for follow-up Essential hypertension 34039131 I10 Previously controlled last visit 124/72, pulse 92. Mitral merlin ve regurgitation 83065786 I34.0 ADARSH 09/18/2019 : Moderate to severe mitral valve calcificat ion, moderate MR, moderate mitral valve stenosis, peak gradient 16mmHg, mean gradient of 9mmHg.Obta in echo to evaluate for structural /functiona l disease. Myocardial infarction 22 250275 I21.9 NSTEMI 05/22/2019 Obstructiv e sleep apnea syndrome 02716701 G47.33 Persistent dyspnea on exertion likely 2/2 OSAneeds to se Sleep doctor Obesity 678056686 E66.9 20lb weight loss recommende d over the next 2 months [address] Reza Victoria MD [facility] [address] [place] [address] 06/04/2022 15:49:43 06/04/2022 16:29:08 Cardiac pacemaker in situ 083375112 Z95.0 Placed 2004, pacer follow up here Chronic ki dney disease 512800901 N18.9 Cr 1.0 in 2019 Type 2 richard betes mellitus 19024141 E11.9 Treatment and evaluation by primary care doctor Discussed importance of adequate glycemic control to minimize cardiovasc ular disease progressio n, A1C goal of < 7% for type 2 DM. Sick sinus syndrome 3608 3008 I49.5 s/p Pacer Peripheral nerve disease 062061903 G64 Coronary atherosclerosis 841263809 I25.10 s/p stent placement (11/2017) to the mid and distal section of the first diagonal branch Hyperlipidemia 47501839 E78.5 Needs to keep LDL less than 70, and HDL more than 40 01/04/2019 LDL 118 Will switch atorvastat in 40mg to rosuvastat in 20mg 06/11/2020 Will get fasting lipids for follow-up Essential hypertension 92782678 I10 Previously controlled last visit 124/72, pulse 92. Mitral merlin ve regurgitation 51751430 I34.0 ADARSH 09/18/2019 : Moderate to severe mitral valve calcificat ion, moderate MR, moderate mitral valve stenosis, peak gradient 16mmHg, mean gradient of 9mmHg.Obta in echo to evaluate for structural /functiona l disease. Myocardial infarction 22 594312 I21.9 NSTEMI 05/22/2019 Obstructiv e sleep apnea syndrome 90380117 G47.33 Persistent dyspnea on exertion likely 2/2 OSAneeds to Sleep doctor Obesity 245475250 E66.9 20lb weight loss recommende d over the next 2 months [address] MD Denise [place] [facility] [address] [place] [address] 07/29/2022 16:40:00 07/29/2022 17:20:54 Cardiac pacemaker in situ 859849092 Z95.0 Placed 2004, pacer follow up here Chronic ki dney disease 191799384 N18.9 Cr 1.0 in 2020 Type 2 irchard betes mellitus 28493731 E11.9 Treatment and evaluation by primary care doctor Discussed importance of adequate glycemic control to minimize cardiovasc ular disease progressio n, A1C goal of < 7% for type 2 DM. Sick sinus syndrome 3608 3008 I49.5 s/p Pacer , Pacer follow up was done, it seems to be functionin g well, no new events Peripheral nerve disease 462254750 G64 Coronary atherosclerosis 074783611 I25.10 s/p stent placement (11/2017) to the mid and distal section of the first diagonal branch Hyperlipidemia 12334869 E78.5 Needs to keep LDL less than 70, and HDL more than 40 01/04/2019 LDL 118 Will switch atorvastat in 40mg to rosuvastat in 20mg 06/11/2020 Will get fasting lipids for follow-up Essential hypertension 89438141 I10 Previously controlled last visit 124/72, pulse 92. Mitral merlin ve regurgitation 01384511 I34.0 ADARSH 09/18/2019 : Moderate to severe mitral valve calcificat ion, moderate MR, moderate mitral valve stenosis, peak gradient 16mmHg, mean gradient of 9mmHg.Obta in echo to evaluate for structural /functiona l disease. Myocardial infarction 22 399096 I21.9 NSTEMI 05/22/2019 Obstructiv e sleep apnea syndrome 26948901 G47.33 Persistent dyspnea on exertion likely 2/2 OSAneeds to Sleep doctor Obesity 222089896 E66.9 20lb weight loss recommende d over the next 2 months Health Concerns Section Related Observation LastModified by Organization Detai ls LastModified Time None Recorded Concern Status LastModified by Organization Details LastModified Time None Recorded Advance Directives Directive None Recorded Payers Encounter Date Sequence Insurance Name Policy Number Policy Goldberg Covered Member ID Goldberg Member ID Guarantor Name 01/09/2021 1 [facility] (MEDICAID HMO) [id number] Marlys R Fredi [id number] Marlys R [place] 06/24/2021 1 [facility] (MEDICAID HMO) [id number] Marlys R Fredi [id number] Marlys R [place] 10/06/2021 1 [facility] (MEDICAID HMO) [id number] 0003 Marlys R [place] [id number] Marlys R [place] 06/04/2022 1 [facility] (MEDICAID HMO) [id number] 0003 Marlys Rodriguez [place] [id number] Marlys Rai 07/29/2022 1 [facility] (MEDICAID HMO) [id number] 0003 Marlys [place] [id number] Marlys Rai Notes Date Note Type Note Provider Name and Address Organization Details Recorded Time 01/09/2021 text/html 01/09/21 CC : Chest pain 54 year-old white woman with ASD closure (surgical), CAD s/p stent placement (12/07/17), hypertension, hyperlipidemia, MR, AV block s/p permanent pacemaker, type 2 diabetes, obesity is here for follow up . She was last seen in May 2020. Since then Pt reports c/p, sob, and dizziness. Pt reports extreme fatigue for the past month; she has even fallen asleep on the toilet. Pt reports a sinus infection. Pt reports extreme anxiety and depression. Pt has a yeast infection and fungal infection. Pt reports that her restless leg syndrome has gotten really bad. She takes ibuprofen which only helps marginally. Pt visited ER last week because she was experiencing very unwell (extreme weakness, sinus infection, bloating) for the past 3 weeks. They gave her water pills and sent her home. 09/20/19 Sleep Study: Findings are consistent with moderate, positional obstructive sleep apnea (MEEK). Indications of cardiac dysrhythmia are recorded. Previously, patient was in the hospital 08/17 for dyspnea. She received IV lasix and her creatinine went up to 2.5 from 1. Her diuretics were held and creatinine improved. 2D echo then showed mitral stenosis, calcified which is new diagnosis for her. She is known to have mitral regurgitation. Since discharge she feels fair. Continues to get short of breath with exertion. Her Metoprolol dose was decreased to 12.5 BID as BP was running low. Her BP is stable today. She was in the [facility] in 10/12/19 because of Chest pain . Had ADARSH, showing moderate mitral valve stenosis, and moderate mitral valve regurgitation. Had CATH done in 05/22/19 reveled chronic total occlusion of the distal diagonal branch chest. Had ECHO done in 03/22/19 showed normal global systolic function , EF 55-60% , She was at [facility]. She had a LHC on 12/08/[address] Victoria. Has single vessel CAD. Had balloon angioplasty followed by stent placement to the mid and distal section of the first diagonal branch with good results. Was discharged on 12/10/17. Was sent home on Plavix and baby ASA. Since then she feels fine. She has a [employer] pacemaker. 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 Was done by Dr Hernandez. reports her bottom half of her heart is weak. Last checked in November 2017 in our clinic. She had Non-ST elevation myocardial infarction. EKG showed paced rhythm with no new EKG changes but she had slight elevation of troponin. (Had chest pain that radiated down her arm). called Stephanie in office on 08-28-20 to say she had a covid test and no results yet. Getting worse going to the ER. Stephanie Plunkett 08-28-20 08-29-20 covid + 08-29-20 stephanie anjelica 08-29-20 Results from this visit, or from the past: BMP 09/06/2019 NA 141 K 4.7 CH 107 CO2 25 BUN 17 CR 1.00 GL 185 CA 9.2 MG 1.4 BMP 08/29/2019 NA 138 K 4.6 CH 101 CO2 27 BUN 18 CR 1.00 GL 84 CA 9.1 PHOS 4.2 MG 1.4 08/27/2019; WBC 6.9,RBC 4.57,HGB 10.2,HCT 35.0,PLT 285 CMP 06/23/2019 NA 136 K 4.9 CH 104 CO2 23 GL 235 BUN 24 CR 1.00 CA 8.3 AST 18 ALT 19 ALK PH 104 HGA1 C 9.9 CBC 06/23/2019 WBC 3.7 RBC 3.80 HGB 9.6 HCT 31.5 PLT 217 06/22/2019 PT 11.8 INR 0.9 05/23/19: NA 134 , K 4.9 , CL 98, CO2 24, GLU 252, BUN 20, CR 1.10, 05/22/19 NA 138, K 4.2, CH 103, C02 24, GLU 139, B 15, CR 0.90, JULIANE 9.1, MG 1.4 *01/04/19: TC 181.3 ,TG 128,HDL 56 ,LDL 118,01/04/19 VIT D 19.909/22/19 : BMP: Na 135,K 4.6,Cl 100,CO2 21,Glucose 331,BUN 18,Creati 1.10 Ca 8.8,A1c 9.5 05/23/19: CBC : WBC 5.4,RBC 4.64,HGB 11.6,HCT 38.1,PLT 288 05/22/19 : WBC 4.1,RBC 4.57,HGB 11.7,HCT 37.7,PLT 264 05/21/19 : WBC 5.7,RBC 05/21/19 PT 11.2, INR 0.8, PTT 26 01/04/19: Hga1c 8. VIT D 19.9 03/18/18 CK: 77 03/18/18 NA: 139.0, K: 4.8, CL: 99, CO2: 22.3, GLU:186, BUN: 21, AST: 15.0, ALT: 15.0, CR: 1.20 12/10/17:NA 136,K 3.9,CL 103,CO2 27,GLU 239,BUN 24,CR 1.00,Hg 11.6,HT 34.2, 12/10/17: HB 11.8, HT 34.2 06/11/20 EKG: Electronic ventricular pacemaker 06/22/19 EKG: Atrial sense - electronic ventricular pacemaker. Baseline artifact - I, II, III, AVR, AVL, AVF. No further interpretation is possible. Atypical EKG. 05/22/19 Atrial Sense- Electronic Ventricular Pacemaker, Baseline wander- AVR, AVL, AVF , no Further Interpretation is possible, Atypical ECG EKG 04/04/19 1st degree A-V block. Low voltage,chest leads, Anterior myocardial infarction. inferior myocardial infarction.EKG 11/22/18 : Left bundle branch block , Possibly acute inferior myocardial infarction.EKG 12/23/17: Atrial sense- electronic ventricular pacemaker, First degree AV block, Atypical ECG. 09/20/19 Sleep Study: Findings are consistent with moderate, positional obstructive sleep apnea (MEEK). Indications of cardiac dysrthythmia are recorded. Echo 09/18/2019 There is mildly increased LV wall thickness. There is mild aortic valve sclerosis. There is moderate mitral valve stenosis. The mitral valve has normal leaflets and calcified leaflets. There is moderate mitral valve regurgitation. 09/18/2019 : Transesophageal Echocardiogram : 1) There is mildly increased left vantricular wall thickness ,2) There is mild aortic valve sclerosis ,3) There is moderate mitral valve stenosis ,4) The mitral valve has normal leafles and calcified leaflets ,5) There is moderate mitral valve regurgitation 12/08/17 ECHO: Normal left ventricular wall thickness. Normal left ventricular size. Mitral valve leaflets appear mildly thickened. Moderate to severe mitral valve regurgitation. 06/22/19 Chest XR: Cardiomegaly. Clear lungs. 05/21/19: Status post sternotomy ,cardiomegaly cannot exclude small pleural effusions ,no active pulmonary Disease ECHO 12/08/17: Normal left ventricular wall thickness. Normal left ventricular size. Mitral valve leaflets appear mildly thickened. Moderate to severe mitral valve regurgitation. Sachi Calhoun [place], [place] - [facility] 01/09/2021 15:04:24 06/24/2021 text/html 06/24/21 CC : Cardiac follow up, dyspnea on exertion 55 year-old white woman with ASD closure (surgical), CAD s/p stent placement (12/07/17), hypertension, hyperlipidemia, MR, MS, AV block s/p permanent pacemaker, type 2 diabetes, MEEK, and obesity is here for follow up. She was last seen in the clinic on 01/09/21, since then she was in the hospital with Shortness of breath Denies chest pain.Denies shortness of breath at rest. Has mild dyspnea on exertion.No orthopnea. No PNDs.Denies heart palpitations.Denies dizziness. Denies syncope or near syncope.No ankle or leg edema.No major bleeding events.No reported side effects from medications. Taking medications as prescribed with no missed doses.She has snoring, daytime somnolence and AM headache. *Last LDL was 118 done on 01/13/19 .Pt takes rosuvastatin 20 mg. goes to [place] for labs and all admissions So many of her tests have been cancelled over the past 2 years. She was supposed to have treadmill and ECHO these were cancelled. Was patient admitted? Previously : She was in the [facility] in 10/12/19 because of Chest pain Pt visited ER last week because she was experiencing very unwell (extreme weakness, sinus infection, bloating)They gave her water pills and sent her home. patient was in the hospital 08/17 for dyspnea. She received IV lasix and her creatinine went up to 2.5 from 1. Her diuretics were held and creatinine improved. 2D echo then showed mitral stenosis, calcified which is new diagnosis for her. *She had a LHC on 12/08/[address] Victoria. Has single vessel CAD. Had balloon angioplasty followed by stent placement to the mid and distal section of the first diagonal branch with good results. Was discharged on 12/10/17. Was sent home on Plavix and baby ASA. Since then she feels fine. *She has a Medtronic pacemaker. 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 Was done by Dr Hernandez. reports her bottom half of her heart is weak. Last checked in November 2017 in our clinic. *09/20/19 Sleep Study: Findings are consistent with moderate, positional obstructive sleep apnea (MEEK). Indications of cardiac dysrhythmia are recorded. *Had ADARSH, showing moderate mitral valve stenosis, and moderate mitral valve regurgitation. 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 *Had ECHO done in 03/22/19 showed normal global systolic function , EF 55-60% , *She has a Medtronic pacemaker. 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 Was done by Dr Hernandez. reports her bottom half of her heart is weak. Last checked in November 2017 in our clinic. *She had Non-ST elevation myocardial infarction. EKG showed paced rhythm with no new EKG changes but she had slight elevation of troponin. (Had chest pain that radiated down her arm).called Stephanie in office on 08-28-20 to say she had a covid test and no results yet. Getting worse going to the ER. Stephanie Waitegemalisset 08-28-20 08-29-20 covid + 08-29-20 stephanie dejesus 08-29-20 Results from this visit, or from the past: BMP 09/06/2019 NA 141 K 4.7 CH 107 CO2 25 BUN 17 CR 1.00 GL 185 CA 9.2 MG 1.4 BMP 08/29/2019 NA 138 K 4.6 CH 101 CO2 27 BUN 18 CR 1.00 GL 84 CA 9.1 PHOS 4.2 MG 1.4 08/27/2019; WBC 6.9,RBC 4.57,HGB 10.2,HCT 35.0,PLT 285 CMP 06/23/2019 NA 136 K 4.9 CH 104 CO2 23 GL 235 BUN 24 CR 1.00 CA 8.3 AST 18 ALT 19 ALK PH 104 HGA1 C 9.9CBC 06/23/2019 WBC 3.7 RBC 3.80 HGB 9.6 HCT 31.5 PLT 31194 PT 11.8 INR 0.9005/23/19: NA 134 , K 4.9 , CL 98, CO2 24, GLU 252, BUN 20, CR 1.10,05/22/19 NA 138, K 4.2, CH 103, C02 24, GLU 139, B 15, CR 0.90, JULIANE 9.1, MG 1.405: TC 181.3 ,TG 128,HDL 56 ,LDL 118,01/04/19 VIT D .9005/21/19 : BMP: Na 135,K 4.6,Cl 100,CO2 21,Glucose 331,BUN 18,Creati 1.10 Ca 8.8,A1c 9.509: CBC : WBC 5.4,RBC 4.64,HGB 11.6,HCT 38.1,PLT 288 05/22/19 : WBC 4.1,RBC 4.57,HGB 11.7,HCT 37.7,PLT 264 05/21/19 : WBC 5.7,RBC05/21/19 PT 11.2, INR 0.8, PTT : Hga1c 8.005 VIT D 19. CK: NA: 139.0, K: 4.8, CL: 99, CO2: 22.3, GLU:186, BUN: 21, AST: 15.0, ALT: 15.0, CR: 1.:NA 136,K 3.9,CL 103,CO2 27,GLU 239,BUN 24,CR 1.00,Hg 11.6,HT 34.204: HB 11.8, HT 34.210 EKG: Electronic ventricular qoavaehnf00/24/19 EKG: Atrial sense - electronic ventricular pacemaker. Baseline artifact - I, II, III, AVR, AVL, AVF. No further interpretation is possible. Atypical EKG. 05/22/19 Atrial Sense- Electronic Ventricular Pacemaker, Baseline wander- AVR, AVL, AVF , no Further Interpretation is possible, Atypical ECG EKG 04/04/19 1st degree A-V block. Low voltage,chest leads, Anterior myocardial infarction. inferior myocardial infarction. EKG 11/22/18 : Left bundle branch block , Possibly acute inferior myocardial infarction.EKG 12/23/17: Atrial sense- electronic ventricular pacemaker, First degree AV block, Atypical ECG.09/20/19 Sleep Study: Findings are consistent with moderate, positional obstructive sleep apnea (MEEK). Indications of cardiac dysrthythmia are recorded. Echo 09/18/2019 There is mildly increased LV wall thickness. There is mild aortic valve sclerosis. There is moderate mitral valve stenosis. The mitral valve has normal leaflets and calcified leaflets. There is moderate mitral valve regurgitation. 09/18/2019 : Transesophageal Echocardiogram : 1) There is mildly increased left vantricular wall thickness ,2) There is mild aortic valve sclerosis ,3) There is moderate mitral valve stenosis ,4) The mitral valve has normal leafles and calcified leaflets ,5) There is moderate mitral valve qhdvoxcpulmvp27/11/18 ECHO: Normal left ventricular wall thickness. Normal left ventricular size. Mitral valve leaflets appear mildly thickened. Moderate to severe mitral valve regurgitation. 06/22/19 Chest XR: Cardiomegaly. Clear lungs.05/21/19: Status post sternotomy ,cardiomegaly cannot exclude small pleural effusions ,no active pulmonary Disease ECHO 12/08/17: Normal left ventricular wall thickness. Normal left ventricular size. Mitral valve leaflets appear mildly thickened. Moderate to severe mitral valve regurgitation. Reza Victoria MD [address] [place], [address], [facility] - [facility] 06/24/2021 13:26:32 10/06/2021 text/html 10/06/21CC : Car diac follow up, dyspnea on [id number] year-old white woman with ASD closure (surgical), CAD s/p stent placement (12/07/17), hypertension, hyperlipidemia, MR, MS, AV block s/p permanent pacemaker, type 2 diabetes, MEEK, and obesity is here for 3 month follow up with ECHO to discuss the results. She was last seen in the clinic on 06/24/21 , since then she still has highsugars and her A1C is 13.8She denies ER visits and hospitalizations since she was last seen. Denies chest pain.Denies shortness of breath at rest. Has mild dyspnea on exertion.No orthopnea. No PNDs.Denies heart palpitations.Denies dizziness. Denies syncope or near syncope.No ankle or leg edema.No major bleeding events.No reported side effects from medications. Taking medications as prescribed with no missed doses.Denies snoring, daytime somnolence and AM headache.*Last LDL was 118 done on 01/03/19 .Pt takes rosuvastatin 20 mg. *Had ECHO done in 05/10/21 showed LV systolic function is normal,estimated at 55-60%,there is mildly increased LV wall thickness,LV septal wall motion is abnormal with septal motion related to bundle branch block,the left ventricular diastolic dysfunction is grade II diastolic dysfunction, there is moderate mitral valve stenosis,there is mild mitral valve regurgitation,there is mild tricuspid valve regurgitation,severe pulmonary hypertension, estimated pulmonary arterial systolic pressure is 81 mmHg. Previously : She was in the [facility] in 10/12/19 because of Chest pain Pt visited ER last week because she was experiencing very unwell (extreme weakness, sinus infection, bloating)They gave her water pills and sent her home. patient was in the hospital 08/17 for dyspnea. She received IV lasix and her creatinine went up to 2.5 from 1. Her diuretics were held and creatinine improved. 2D echo then showed mitral stenosis, calcified which is new diagnosis for her. *She had a LHC on 12/08/[address] Victoria. Has single vessel CAD. Had balloon angioplasty followed by stent placement to the mid and distal section of the first diagonal branch with good results. Was discharged on 12/10/17. Was sent home on Plavix and baby ASA. Since then she feels fine. *She has a Medtronic pacemaker. 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 Was done by Dr Hernandez. reports her bottom half of her heart is weak. Last checked in November 2017 in our clinic. *09/20/19 Sleep Study: Findings are consistent with moderate, positional obstructive sleep apnea (MEEK). Indications of cardiac dysrhythmia are recorded. *Had ADARSH, showing moderate mitral valve stenosis, and moderate mitral valve regurgitation. 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 *She has a Medtronic pacemaker. 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 Was done by Dr Hernandez. reports her bottom half of her heart is weak. Last checked in November 2017 in our clinic. *She had Non-ST elevation myocardial infarction. EKG showed paced rhythm with no new EKG changes but she had slight elevation of troponin. (Had chest pain that radiated down her arm).called Stephanie in office on 08-28-20 to say she had a covid test and no results yet. Getting worse going to the ER. Stephanie Plunkett 08-28-20 08-29-20 covid + 08-29-20 stephanie dejesus 08-29-20 Results from this visit, or from the past:BMP 09/06/2019 NA 141 K 4.7 CH 107 CO2 25 BUN 17 CR 1.00 GL 185 CA 9.2 MG 1.4 BMP 08/29/2019 NA 138 K 4.6 CH 101 CO2 27 BUN 18 CR 1.00 GL 84 CA 9.1 PHOS 4.2 MG 1.4 08/27/2019; WBC 6.9,RBC 4.57,HGB 10.2,HCT 35.0,PLT 285 CMP 06/23/2019 NA 136 K 4.9 CH 104 CO2 23 GL 235 BUN 24 CR 1.00 CA 8.3 AST 18 ALT 19 ALK PH 104 HGA1 C 9.9CBC 06/23/2019 WBC 3.7 RBC 3.80 HGB 9.6 HCT 31.5 PLT 4084306/22/2019 PT 11.8 INR 0.909: NA 134 , K 4.9 , CL 98, CO2 24, GLU 252, BUN 20, CR 1.10,05/22/19 NA 138, K 4.2, CH 103, C02 24, GLU 139, B 15, CR 0.90, JULIANE 9.1, MG 1.405: TC 181.3 ,TG 128,HDL 56 ,LDL 118,01/04/19 VIT D 19.909 : BMP: Na 135,K 4.6,Cl 100,CO2 21,Glucose 331,BUN 18,Creati 1.10 Ca 8.8,A1c 9.: CBC : WBC 5.4,RBC 4.64,HGB 11.6,HCT 38.1,PLT 288 05/22/19 : WBC 4.1,RBC 4.57,HGB 11.7,HCT 37.7,PLT 264 05/21/19 : WBC 5.7,RBC9 PT 11.2, INR 0.8, PTT : Hga1c 8.005 VIT D 19.97 CK: NA: 139.0, K: 4.8, CL: 99, CO2: 22.3, GLU:186, BUN: 21, AST: 15.0, ALT: 15.0, CR: 1.:NA 136,K 3.9,CL 103,CO2 27,GLU 239,BUN 24,CR 1.00,Hg 11.6,HT 34.204: HB 11.8, HT 34.210 EKG: Electronic ventricular siojzkpmt84/24/19 EKG: Atrial sense - electronic ventricular pacemaker. Baseline artifact - I, II, III, AVR, AVL, AVF. No further interpretation is possible. Atypical EKG. 05/22/19 Atrial Sense- Electronic Ventricular Pacemaker, Baseline wander- AVR, AVL, AVF , no Further Interpretation is possible, Atypical ECG EKG 04/04/19 1st degree A-V block. Low voltage,chest leads, Anterior myocardial infarction. inferior myocardial infarction. EKG 11/22/18 : Left bundle branch block , Possibly acute inferior myocardial infarction.EKG 12/23/17: Atrial sense- electronic ventricular pacemaker, First degree AV block, Atypical ECG.09/20/19 Sleep Study: Findings are consistent with moderate, positional obstructive sleep apnea (MEEK). Indications of cardiac dysrthythmia are recorded. Echo 09/18/2019 There is mildly increased LV wall thickness. There is mild aortic valve sclerosis. There is moderate mitral valve stenosis. The mitral valve has normal leaflets and calcified leaflets. There is moderate mitral valve regurgitation. 09/18/2019 : Transesophageal Echocardiogram : 1) There is mildly increased left vantricular wall thickness ,2) There is mild aortic valve sclerosis ,3) There is moderate mitral valve stenosis ,4) The mitral valve has normal leafles and calcified leaflets ,5) There is moderate mitral valve yifvfwbnwvhba30/11/18 ECHO: Normal left ventricular wall thickness. Normal left ventricular size. Mitral valve leaflets appear mildly thickened. Moderate to severe mitral valve regurgitation. 06/22/19 Chest XR: Cardiomegaly. Clear lungs.05/21/19: Status post sternotomy ,cardiomegaly cannot exclude small pleural effusions ,no active pulmonary Disease ECHO 12/08/17: Normal left ventricular wall thickness. Normal left ventricular size. Mitral valve leaflets appear mildly thickened. Moderate to severe mitral valve regurgitation. Reza Victoria MD [address] [place], [address], [facility] 10/06/2021 11:36:41 06/04/2022 text/html 06/04/22CC : [facility] follow [facility]56 year-old white woman with ASD closure (surgical), CAD s/p stent placement (12/07/17), hypertension, hyperlipidemia, MR, MS, AV block s/p permanent pacemaker, type 2 diabetes, MEEK, and obesity is here for follow up. She was last seen in the clinic on 10/06/21, since then she is now more activeDenies chest pain.Denies shortness of breath at rest. Has mild dyspnea on exertion.No orthopnea. No PNDs.Denies heart palpitations.Admits dizziness. Denies syncope or near syncope.No ankle or leg edema.No major bleeding events.No reported side effects from medications. Taking medications as prescribed with no missed doses.Denies snoring, daytime somnolence and AM headache.*Last LDL was 118 done on 01/03/19.Pt takes rosuvastatin 20 mg. Previously:She still has high sugars and her A1C is 13.8 *Had ECHO done in 05/10/21 showed LV systolic function is normal,estimated at 55-60%,there is mildly increased LV wall thickness,LV septal wall motion is abnormal with septal motion related to bundle branch block,the left ventricular diastolic dysfunction is grade II diastolic dysfunction, there is moderate mitral valve stenosis,there is mild mitral valve regurgitation,there is mild tricuspid valve regurgitation,severe pulmonary hypertension, estimated pulmonary arterial systolic pressure is 81 mmHg. She was in the [facility] in 10/12/19 because of Chest pain Pt visited ER last week because she was experiencing very unwell (extreme weakness, sinus infection, bloating)They gave her water pills and sent her home. patient was in the hospital 08/17 for dyspnea. She received IV lasix and her creatinine went up to 2.5 from 1. Her diuretics were held and creatinine improved. 2D echo then showed mitral stenosis, calcified which is new diagnosis for her. *She had a LHC on 12/08/[address] Victoria. Has single vessel CAD. Had balloon angioplasty followed by stent placement to the mid and distal section of the first diagonal branch with good results. Was discharged on 12/10/17. Was sent home on Plavix and baby ASA. Since then she feels fine. *She has a Medtronic pacemaker. 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 Was done by Dr Hernandez. reports her bottom half of her heart is weak. Last checked in November 2017 in our clinic. *09/20/19 Sleep Study: Findings are consistent with moderate, positional obstructive sleep apnea (MEEK). Indications of cardiac dysrhythmia are recorded. *Had ADARSH, showing moderate mitral valve stenosis, and moderate mitral valve regurgitation. 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 *She has a Medtronic pacemaker. 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 Was done by Dr Hernandez. reports her bottom half of her heart is weak. Last checked in November 2017 in our clinic. *She had Non-ST elevation myocardial infarction. EKG showed paced rhythm with no new EKG changes but she had slight elevation of troponin. (Had chest pain that radiated down her arm).called Stephanie in office on 08-28-20 to say she had a covid test and no results yet. Getting worse going to the ER. Stephanie Plunkett 08-28-20 08-29-20 covid + 08-29-20 stephanie dejesus 08-29-20 Results from this visit, or from the past:BMP 09/06/2019 NA 141 K 4.7 CH 107 CO2 25 BUN 17 CR 1.00 GL 185 CA 9.2 MG 1.4 BMP 08/29/2019 NA 138 K 4.6 CH 101 CO2 27 BUN 18 CR 1.00 GL 84 CA 9.1 PHOS 4.2 MG 1.4 08/27/2019; WBC 6.9,RBC 4.57,HGB 10.2,HCT 35.0,PLT 285 CMP 06/23/2019 NA 136 K 4.9 CH 104 CO2 23 GL 235 BUN 24 CR 1.00 CA 8.3 AST 18 ALT 19 ALK PH 104 HGA1 C 9.9CBC 06/23/2019 WBC 3.7 RBC 3.80 HGB 9.6 HCT 31.5 PLT 2111606/22/2019 PT 11.8 INR 0.9005/23/19: NA 134 , K 4.9 , CL 98, CO2 24, GLU 252, BUN 20, CR 1.10,05/22/19 NA 138, K 4.2, CH 103, C02 24, GLU 139, B 15, CR 0.90, JULIANE 9.1, MG 1.405: TC 181.3 ,TG 128,HDL 56 ,LDL 118,01/04/19 VIT D .9005/21/19 : BMP: Na 135,K 4.6,Cl 100,CO2 21,Glucose 331,BUN 18,Creati 1.10 Ca 8.8,A1c 9.509: CBC : WBC 5.4,RBC 4.64,HGB 11.6,HCT 38.1,PLT 288 05/22/19 : WBC 4.1,RBC 4.57,HGB 11.7,HCT 37.7,PLT 264 05/21/19 : WBC 5.7,RBC05/21/19 PT 11.2, INR 0.8, PTT : Hga1c 8.005 VIT D 19.97 CK: NA: 139.0, K: 4.8, CL: 99, CO2: 22.3, GLU:186, BUN: 21, AST: 15.0, ALT: 15.0, CR: 1.:NA 136,K 3.9,CL 103,CO2 27,GLU 239,BUN 24,CR 1.00,Hg 11.6,HT 34.204: HB 11.8, HT 34.210 EKG: Electronic ventricular /24/19 EKG: Atrial sense - electronic ventricular pacemaker. Baseline artifact - I, II, III, AVR, AVL, AVF. No further interpretation is possible. Atypical EKG. 05/22/19 Atrial Sense- Electronic Ventricular Pacemaker, Baseline wander- AVR, AVL, AVF , no Further Interpretation is possible, Atypical ECG EKG 04/04/19 1st degree A-V block. Low voltage,chest leads, Anterior myocardial infarction. inferior myocardial infarction. EKG 11/22/18 : Left bundle branch block , Possibly acute inferior myocardial infarction.EKG 12/23/17: Atrial sense- electronic ventricular pacemaker, First degree AV block, Atypical ECG.09/20/19 Sleep Study: Findings are consistent with moderate, positional obstructive sleep apnea (MEEK). Indications of cardiac dysrthythmia are recorded. Echo 09/18/2019 There is mildly increased LV wall thickness. There is mild aortic valve sclerosis. There is moderate mitral valve stenosis. The mitral valve has normal leaflets and calcified leaflets. There is moderate mitral valve regurgitation. 09/18/2019 : Transesophageal Echocardiogram : 1) There is mildly increased left vantricular wall thickness ,2) There is mild aortic valve sclerosis ,3) There is moderate mitral valve stenosis ,4) The mitral valve has normal leafles and calcified leaflets ,5) There is moderate mitral valve dasxyyfpyvgcz89/11/18 ECHO: Normal left ventricular wall thickness. Normal left ventricular size. Mitral valve leaflets appear mildly thickened. Moderate to severe mitral valve regurgitation. 06/22/19 Chest XR: Cardiomegaly. Clear lungs.05/21/19: Status post sternotomy ,cardiomegaly cannot exclude small pleural effusions ,no active pulmonary Disease ECHO 12/08/17: Normal left ventricular wall thickness. Normal left ventricular size. Mitral valve leaflets appear mildly thickened. Moderate to severe mitral valve regurgitation. Reza Victoria MD [address] [place], [address], [facility] - [facility] 06/04/2022 16:26:14 07/29/2022 text/html 07/29/22CC : Car dia follow up, [id number] year-old white woman with ASD closure (surgical), CAD s/p stent placement (12/07/17), hypertension, hyperlipidemia, MR, MS, AV block s/p permanent pacemaker, type 2 diabetes, MEEK, and obesity is here for follow up with Cardiac cath results. She was last seen in the clinic on 06/04/22, since then she was in the hospital with high sugarShe denies ER visits and hospitalizations since she was last seen. Denies chest pain.Denies shortness of breath at rest. Has mild dyspnea on exertion.No orthopnea. No PNDs.Denies heart palpitations.Admits dizziness. Denies syncope or near syncope.No ankle or leg edema.No major bleeding events.No reported side effects from medications. Taking medications as prescribed with no missed doses.Denies snoring, daytime somnolence and AM headache.*Last LDL was 118 done on 01/03/19.Pt takes rosuvastatin 20 mg. *Pt had Cath in [facility] done *Had ECHO done in 05/10/21 showed LV systolic function is normal,estimated at 55-60%,there is mildly increased LV wall thickness,LV septal wall motion is abnormal with septal motion related to bundle branch block,the left ventricular diastolic dysfunction is grade II diastolic dysfunction, there is moderate mitral valve stenosis,there is mild mitral valve regurgitation,there is mild tricuspid valve regurgitation,severe pulmonary hypertension, estimated pulmonary arterial systolic pressure is 81 mmHg. She was in the [facility] in 10/12/19 because of Chest pain Pt visited ER last week because she was experiencing very unwell (extreme weakness, sinus infection, bloating)They gave her water pills and sent her home. *She has a Medtronic pacemaker. 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 Was done by Dr Hernandez. reports her bottom half of her heart is weak. Last checked in November 2017 in our clinic. *09/20/19 Sleep Study: Findings are consistent with moderate, positional obstructive sleep apnea (MEEK). Indications of cardiac dysrhythmia are recorded. *Had ADARSH, showing moderate mitral valve stenosis, and moderate mitral valve regurgitation. 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 *She has a Medtronic pacemaker. 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 Was done by Dr Hernandez. reports her bottom half of her heart is weak. Last checked in November 2017 in our clinic. *She had Non-ST elevation myocardial infarction. EKG showed paced rhythm with no new EKG changes but she had slight elevation of troponin. (Had chest pain that radiated down her arm).called Stephanie in office on 08-28-20 to say she had a covid test and no results yet. Getting worse going to the ER. Stephanie Plunkett 08-28-20 08-29-20 covid + 08-29-20 stephanie dejesus 08-29-20 Results from this visit, or from the past:BMP 09/06/2019 NA 141 K 4.7 CH 107 CO2 25 BUN 17 CR 1.00 GL 185 CA 9.2 MG 1.4 BMP 08/29/2019 NA 138 K 4.6 CH 101 CO2 27 BUN 18 CR 1.00 GL 84 CA 9.1 PHOS 4.2 MG 1.4 08/27/2019; WBC 6.9,RBC 4.57,HGB 10.2,HCT 35.0,PLT 285 CMP 06/23/2019 NA 136 K 4.9 CH 104 CO2 23 GL 235 BUN 24 CR 1.00 CA 8.3 AST 18 ALT 19 ALK PH 104 HGA1 C 9.9CBC 06/23/2019 WBC 3.7 RBC 3.80 HGB 9.6 HCT 31.5 PLT 8043106/22/2019 PT 11.8 INR 0.9005/23/19: NA 134 , K 4.9 , CL 98, CO2 24, GLU 252, BUN 20, CR 1.10,05/22/19 NA 138, K 4.2, CH 103, C02 24, GLU 139, B 15, CR 0.90, JULIANE 9.1, MG 1.405: TC 181.3 ,TG 128,HDL 56 ,LDL 118,01/04/19 VIT D 19.909 : BMP: Na 135,K 4.6,Cl 100,CO2 21,Glucose 331,BUN 18,Creati 1.10 Ca 8.8,A1c 9.509: CBC : WBC 5.4,RBC 4.64,HGB 11.6,HCT 38.1,PLT 288 05/22/19 : WBC 4.1,RBC 4.57,HGB 11.7,HCT 37.7,PLT 264 05/21/19 : WBC 5.7,RBC05/21/19 PT 11.2, INR 0.8, PTT : Hga1c 8.005 VIT D 19.97 CK: NA: 139.0, K: 4.8, CL: 99, CO2: 22.3, GLU:186, BUN: 21, AST: 15.0, ALT: 15.0, CR: 1.:NA 136,K 3.9,CL 103,CO2 27,GLU 239,BUN 24,CR 1.00,Hg 11.6,HT 34.204: HB 11.8, HT 34.210 EKG: Electronic ventricular aabmpchbz36/24/19 EKG: Atrial sense - electronic ventricular pacemaker. Baseline artifact - I, II, III, AVR, AVL, AVF. No further interpretation is possible. Atypical EKG. 05/22/19 Atrial Sense- Electronic Ventricular Pacemaker, Baseline wander- AVR, AVL, AVF , no Further Interpretation is possible, Atypical ECG EKG 04/04/19 1st degree A-V block. Low voltage,chest leads, Anterior myocardial infarction. inferior myocardial infarction. EKG 11/22/18 : Left bundle branch block , Possibly acute inferior myocardial infarction.EKG 12/23/17: Atrial sense- electronic ventricular pacemaker, First degree AV block, Atypical ECG.09/20/19 Sleep Study: Findings are consistent with moderate, positional obstructive sleep apnea (MEEK). Indications of cardiac dysrthythmia are recorded. Echo 09/18/2019 There is mildly increased LV wall thickness. There is mild aortic valve sclerosis. There is moderate mitral valve stenosis. The mitral valve has normal leaflets and calcified leaflets. There is moderate mitral valve regurgitation. 09/18/2019 : Transesophageal Echocardiogram : 1) There is mildly increased left vantricular wall thickness ,2) There is mild aortic valve sclerosis ,3) There is moderate mitral valve stenosis ,4) The mitral valve has normal leafles and calcified leaflets ,5) There is moderate mitral valve ogxujysbochka61/11/18 ECHO: Normal left ventricular wall thickness. Normal left ventricular size. Mitral valve leaflets appear mildly thickened. Moderate to severe mitral valve regurgitation. 06/22/19 Chest XR: Cardiomegaly. Clear lungs.05/21/19: Status post sternotomy ,cardiomegaly cannot exclude small pleural effusions ,no active pulmonary Disease ECHO 12/08/17: Normal left ventricular wall thickness. Normal left ventricular size. Mitral valve leaflets appear mildly thickened. Moderate to severe mitral valve regurgitation. Reza Victoria MD [address] [place], [address], [facility] 07/29/2022 17:16:36 OBGyn Episode No OBEpisode recorded.
--- OUTSIDE RECORDS SUMMARY | 2024-10-22 00:42 | XMS_ITS | Encounter Summary ---
Author Organization [facility] Address [address] [place] [address] Phone Care Team Providers Care Steam Train Driver Name Role Phone Charity Vela NP Primary Care Provide r Bessie Mora NP Primary Care Provider Kristy Campos PEST CONTROL SERVICE REPRESENTATIVE Unavailable Encounter Details Date Type Department Care Team (Latest Contact Info) Description 12/13/2014 Orders Only [facility] Scanning, Provider Social History Tobacco Use Types Packs/Day Years Used Date Smoking Tobacco: Never Comments Unknown Sex and Gender Information Value Date Recorded Sex Assigned at Not on file 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 Gender Identity Not on file Sexual Orientation Not on file documented as of this encounter Plan of Treatment Not on file documented as of this encounter Procedures Procedure Name Priority Date/Time Associated Diagnosis Comments CARDIOLOGY DOCUMENT SCAN 12/13/2014 documented in this encounter Results * Cardiology Document Scan (12/13/2014) Anatomical Region Laterality Modality Other us Provider Scanning [facility] PROCEDURES Final Result documented in this encounter Visit Diagnoses Not on filedocumented in this encounter Care Teams Steam Train Driver Relationship Specialty Start Date End Date Charity Vela NP PCP - General Nurse Practitioner 05/09/21 10/09/24 Bessie Mora NP [address] [place] [address] PCP - General Family Medicine 10/10/24 Kristy Campos LCSW [address] [facility] ([facility] [place] Mailstop [phone] [place] [address] SHOP Outpatient Cryptologic Technician 10/11/24 documented as of this encounter
--- OUTSIDE RECORDS SUMMARY | 2024-10-22 00:42 | XMS_ITS | Encounter Summary ---
Author Organization [facility] Care Team Providers Care Shift Nurse Manager Name Role Phone Charity Vela MINIATURE SET BUILDER Primary Care Provide r Bessie Mora MINIATURE SET BUILDER Primary Care Provider Kristy Campos PACKING MACHINE FEEDER Unavailable Encounter Details Date Type Department Care Team (Latest Contact Info) Description 05/18/2016 Orders Only [facility] ProviderDallas MD [address] [place] [id number] Social History Tobacco Use Types Packs/Day Years Used Date Smoking Tobacco: Never Comments Unknown Sex and Gender Information Value Date Recorded Sex Assigned at Not on file 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 Historical Provider [facility] RAVEN CELIS Final Result * CARDIOLOGY REPORT (05/18/2016 12:00 AM CDT) Anatomical Region Laterality Modality Other Narrative 05/18/2016 12:00 AM CDT Ordered by an unspecified provider. us Historical Provider [facility] RAVEN CELIS Final Result documented in this encounter Visit Diagnoses Not on filedocumented in this encounter Care Teams Shift Nurse Manager Relationship Specialty Start Date End Date Charity Vela NP PCP - General Nurse Practitioner 05/09/21 10/09/24 Bessie Mora NP [address] [place] [address] PCP - General Family Medicine 10/10/24 Kristy Campos LCSW [address] [facility] [place] [place] Mailstop [phone] [place] [address] SHOP Outpatient Team Psychologist 10/11/24 documented as of this encounter
--- OUTSIDE RECORDS SUMMARY | 2024-10-22 00:43 | XMS_ITS ---
Care Plan Created on: October 22, 2024 Marlys Rai Michael : 1965 Sex: Female Author Organization [facility] [place] [address] Address [address] [place] [address] Care Team Providers Care Addressing Machine Operator Name Role Phone Bessie Mora NP Primary Care Provider Kristy Campos CENSUS CLERK Unavailable [phone] Active Problems Problem Noted Date Diagnosed Date Arrhythmia 10/06/2024 Pacemaker battery depletion 10/06/2024 Presence of cardiac pacemaker 05/29/2013 Gastroesophageal reflux disease 05/16/2013 Diabetes mellitus 05/16/2013 Complete atrioventricular block (CMS/HCC) 2012 Syncope 03/16/2011 Mobitz type II atrioventricular block 01/12/2011 Overview (12/10/2017): Description: Second Degree A-V Block, Mobitz Type II Tricuspid valve insufficiency 01/02/2010 Mitral valve insufficiency 01/02/2010 Atrial septal defect 01/02/2010 Additional Health Concerns Active Problems Noted Date Diagnosed Date Initial Follow-Up Appointment 10/11/2024 Goals Goal Patient Goal Type Associated Problems Recent Progress Patient-Stated? Author Patient will have kept initial appointment and will show signs of improvement to baseline Care Plan Initial Follow-Up Appointment No Kristy Campos, CENSUS CLERK Note: Pt has PCP appt on 10/19. Interventions Care Plan Interventions Intervention Entry Date Outcome Follow up with patient 2 days after Post Hospital Visit office visit to ensure understanding of changes and follow-up plan 10/11/2024 Discuss with patient/ caregiver plan for transportation to appointment 10/11/2024 Related Goals and Interventions Goal Associated Intervent ions Patient will have kept initi al appointment and will show signs of improvement to baseline Follow up with patient 2 days after Post Hospital Visit office visit to ensure understanding of changes and follow-up plan; Discuss with patient/ caregiver plan for transportation to appointment
--- OUTSIDE RECORDS SUMMARY | 2024-10-22 00:43 | XMS_ITS | Referral Summary ---
Author Organization [facility] [address] Address [address] [place] [address] Care Team Providers Care Career Coordinator Name Role Phone Bessie Mora NP Primary Care Provider [phone] Kristy Campos ROLL SHEETING CUTTER Unavailable Encounters Date Type Department Care Team Description 10/18/2024 SHOP/CHAP Subsequent Outreach [facility]NAGEMENT [address] [place] [address] Kristy Campos, ROLL SHEETING CUTTER 10/17/2024 SHOP/CHAP Subsequent Outreach [facility]NAG[facility] [address] [place] [address] Kristy Campos, ROLL SHEETING CUTTER 10/11/2024 SHOP/CHAP Initial Outreach [facility]NAGEMENT [address] [place] [address] Kristy Campos LCSW 10/11/2024 Telephone [facility] Cardiology [address] [place] [address] 8th [place] [address] [place] [address] Roc Dumont MD 10/11/2024 SHOP/CHAP Initial Eligibility Review [facility] [address] [place] [address] Kristy Campos, ANN 10/06/2024 1:12 PM HISTOLOGY AIDE - 10/10/2024 3:57 PM HISTOLOGY AIDE Hospital Encounter [facility] [address] [place] [address] Migdalia Hampton MD Lanza, Gregory M., MD PhD Pacemaker battery depletion (Primary Dx) Discharge Disposition: Discharge to home or self care 10/09/2024 10:32 AM HISTOLOGY AIDE Anesthesia Event [facility] Electrophysiology Lab [address] [place] [address] Sheridan Berry MD Mallette, Allison Anne, NP 10/09/2024 Orders Only [address] [place] [address] Li Nails NP Fitting or adjustment of cardiac pacemaker (Primary Dx) 10/09/2024 10:00 AM HISTOLOGY AIDE - 10/09/2024 12:20 PM HISTOLOGY AIDE Surgery [facility] Electrophysiology Lab [address] [place] [address] Roc Dumont MD REMOVE/REPLACE PACEMAKER (PPM) DUAL LEAD SYSTEM [id number] 10/06/2024 11:00 AM HISTOLOGY AIDE Office Visit [address] [phone] Migdalia Hampton MD Presence of cardiac pacemaker (Primary Dx); Complete atrioventricular block (CMS/HCC) (HCC); Pacemaker battery depletion 10/06/2024 10:30 AM HISTOLOGY AIDE Ancillary Procedure [address] [address] Complete atrioventricular block (CMS/HCC) (HCC) (Primary Dx); Presence of cardiac pacemaker; Encounter for interrogation of cardiac pacemaker 08/14/[address] [address] Migdalia Hampton MD 08/07/[address] [phone] Afshan Kingsley from Last 3 Months Allergies No known active allergies Medications aspirin 81 mg enteric coated tablet Take 1 tablet (81 mg total) by mouth daily Active citalopram (CeleXA) 20 mg tablet Take 1 tablet (20 mg total) by mouth daily as needed Active ezetimibe (ZETIA) 10 mg tablet Take 1 tablet (10 mg total) by mouth daily 4 Active BASAGLAR 100 unit/mL (3 mL) pen for injection ADMINISTER 45 UNITS UNDER THE SKIN AT BEDTIME Active lisinopriL (PRINIVIL,ZEST RIL) 5 mg tablet Take 1 tablet (5 mg total) by mouth daily Active metoprolol tartrate (LOPRESSOR) 25 mg immediate release tablet Take 1 tablet (25 mg total) by mouth 2 (two) times a day Active nitroglycerin (NITROSTAT) 0.[address] 1 tablet by sublingual route. Active pantoprazole DR (PROTONIX) 40 mg EC tablet Take 1 tablet (40 mg total) by mouth daily Active rOPINIRole (REQUIP) 2 mg tablet Take 1 tablet (2 mg total) by mouth 3 (three) times a day Active SITagliptin phosphate (JANUVIA) 100 mg tablet Take 1 tablet (100 mg total) by mouth daily Active rosuvastatin (CRESTOR) 40 mg tablet Take 1 tablet (40 mg total) by mouth daily Active acetaminophen 500 mg capsuleIndicat ions:Fever,Uzma n Take 2 capsules (1,000 mg total) by mouth every 6 (six) hours as needed for pain 30 tablet 5 11/10/19 25 Active glimepiride (AMARYL) 4 mg tablet Take 1 tablet (4 mg total) by mouth 2 (two) times a day 10/06/19 25 Discontinu ed(Therapy completed) rosuvastatin (CRESTOR) 40 mg tablet Take 1 tablet (40 mg total) by mouth daily 10/06/19 25 Discontinu ed(Alterna te therapy) rosuvastatin (CRESTOR) 20 mg tablet Take 2 tablets (40 mg total) by mouth daily 10/06/19 25 Discontinu ed(Therapy completed) Active Problems Problem Noted Date Diagnosed Date Arrhythmia 10/06/2024 Pacemaker battery depletion 10/06/2024 Presence of cardiac pacemaker 05/29/2013 Gastroesophageal reflux disease 05/16/2013 Diabetes mellitus 05/16/2013 Complete atrioventricular block (CMS/HCC) 2012 Syncope 03/16/2011 Mobitz type II atrioventricular block 01/12/2011 Overview (12/10/2017): Description: Second Degree A-V Block, Mobitz Type II Tricuspid valve insufficiency 01/02/2010 Mitral valve insufficiency 01/02/2010 Atrial septal defect 01/02/2010 Social History Tobacco Use Types Packs/Day Years Used Date Smoking Tobacco: Never Personal Safety Answer Date Recorded Have you ever been in or are you currently in a harmful physical or emotional relationship or is someone making you feel afraid or unsafe? Denies 10/06/2024 Comments Unknown Sex and Gender Information Value Date Recorded Sex Assigned at Not on file Legal Sex Female 6:46 AM HISTOLOGY AIDE Gender Identity Not on file Sexual Orientation Not on file Last Filed Vital Signs Vital Sign Reading Time Taken Comments Blood Pressure 149/81 10/10/2024 3:08 PM HISTOLOGY AIDE Pulse 82 10/10/2024 3:08 PM HISTOLOGY AIDE Temperature 36.7 C (98.1 F) 10/10/2024 3:08 PM HISTOLOGY AIDE Respiratory Rate 18 10/10/2024 3:08 PM HISTOLOGY AIDE Oxygen Saturation 92% 10/10/2024 3:08 PM HISTOLOGY AIDE Inhaled Oxygen Concentration - - Weight 76.7 kg (169 lb) 10/10/2024 12:10 AM HISTOLOGY AIDE Height 152.4 cm (5') 10/06/2024 1:13 PM HISTOLOGY AIDE Body Mass Index 33.01 10/06/2024 1:13 PM HISTOLOGY AIDE Plan of Treatment Not on file Goals Goal Patient Goal Type Associated Problems Recent Progress Patient-Stated? Author Patient will have kept initial appointment and will show signs of improvement to baseline Care Plan Initial Follow-Up Appointment Kristy Purcell LCSW Note: Pt has PCP appt on 10/19. Medical Devices Implanted Type Area Hemodialysis Technician Device Identifier Shelf Expiration Date Model / Serial / Lot Medtronic Inc Tyrx Absorbable Antibacterial Envelope Med 2.7x2.5in [id number] - [id number] Implanted:Qty: 1 on 10/09/2024 by Roc Dumont MD at [facility] Other - see comments Med[employer]onic Inc 07/07/2025 [id number] / / [id number] Description:Tyrx envelope Med[employer] Inc [place] S Mri Surescan 50.8x46.6mm 2 Chamber 7.4mm Pacemaker 22.5gm [id number] - [id number] - [id number] Implanted:Qty: 1 on 10/09/2024 by Roc Dumont MD at [facility] Pacemaker Med[employer]onic Inc 11/10/2025 [id number] / [id number] / [employer] Device Vascular Closure Femoral Artery Bioabsorbable Dual Method Vascade 6-7fr Collagen [id number] - [id number] Implanted:Qty: 1 on 10/09/2024 by Roc Dumont MD at [facility] Vascular Closure Device [employer] 06/15/2026 [id number] / / [id number] Procedures Procedure Name Priority Date/Time Associated Diagnosis Comments POCT GLUCOSE DEVICE Routine 10/10/2024 1 1:22 AM HISTOLOGY AIDE POCT GLUCOSE DEVICE Routine 10/10/2024 7 :56 AM HISTOLOGY AIDE EGFR Routine 10/09/2024 8:39 PM HISTOLOGY AIDE DIFFERENTIAL AUTO Routine 10/09/2024 8:3 9 PM HISTOLOGY AIDE PHOSPHORUS Routine 10/09/2024 8:39 PM HISTOLOGY AIDE MAGNESIUM Routine 10/09/2024 8:39 PM HISTOLOGY AIDE CBC WITH AUTO DIFFERENTIAL Routine 10/09/2024 8:39 PM HISTOLOGY AIDE BASIC METABOLIC PANEL Routine 10/09/2024 8:39 PM HISTOLOGY AIDE TYPE AND SCREEN Timed 10/09/2024 8:39 PM HISTOLOGY AIDE POCT GLUCOSE DEVICE Routine 10/09/2024 7 :52 PM HISTOLOGY AIDE POCT GLUCOSE DEVICE Routine 10/09/2024 5 :31 PM HISTOLOGY AIDE POCT GLUCOSE DEVICE Routine 10/09/2024 2 :24 PM HISTOLOGY AIDE PACEMAKER GENERATOR CHANGE - DUAL Routine 10/09/2024 12:50 PM HISTOLOGY AIDE Pacemaker battery depletion [place] AN PROCEDURE PLACEHOLDER Routine 10/09/2024 11:44 AM HISTOLOGY AIDE [place] AN ELECTIVE SUPRAGLOTTIC AIRWAY Routine 10/09/2024 11:44 AM HISTOLOGY AIDE POCT GLUCOSE DEVICE Routine 10/09/2024 1 0:19 AM HISTOLOGY AIDE POCT GLUCOSE DEVICE Routine 10/09/2024 7 :55 AM HISTOLOGY AIDE EGFR Routine 10/08/2024 9:46 PM HISTOLOGY AIDE DIFFERENTIAL AUTO Routine 10/08/2024 9:4 6 PM HISTOLOGY AIDE PHOSPHORUS Routine 10/08/2024 9:46 PM HISTOLOGY AIDE MAGNESIUM Routine 10/08/2024 9:46 PM HISTOLOGY AIDE CBC WITH AUTO DIFFERENTIAL Routine 10/08/2024 9:46 PM HISTOLOGY AIDE BASIC METABOLIC PANEL Routine 10/08/2024 9:46 PM HISTOLOGY AIDE POCT GLUCOSE DEVICE Routine 10/08/2024 9 :34 PM HISTOLOGY AIDE POCT GLUCOSE DEVICE Routine 10/08/2024 4 :47 PM HISTOLOGY AIDE POCT GLUCOSE DEVICE Routine 10/08/2024 1 1:54 AM HISTOLOGY AIDE POCT GLUCOSE DEVICE Routine 10/08/2024 7 :44 AM HISTOLOGY AIDE DIFFERENTIAL AUTO STAT 10/07/2024 9:5 1 PM HISTOLOGY AIDE CBC WITH AUTO DIFFERENTIAL STAT 10/07/2024 9:51 PM HISTOLOGY AIDE EGFR Routine 10/07/2024 8:32 PM HISTOLOGY AIDE PHOSPHORUS Routine 10/07/2024 8:32 PM HISTOLOGY AIDE MAGNESIUM Routine 10/07/2024 8:32 PM HISTOLOGY AIDE BASIC METABOLIC PANEL Routine 10/07/2024 8:32 PM HISTOLOGY AIDE POCT GLUCOSE DEVICE Routine 10/07/2024 8 :22 PM HISTOLOGY AIDE POCT GLUCOSE DEVICE Routine 10/07/2024 4 :10 PM HISTOLOGY AIDE POCT GLUCOSE DEVICE Routine 10/07/2024 1 1:30 AM HISTOLOGY AIDE EGFR Routine 10/07/2024 10:14 AM HISTOLOGY AIDE DIFFERENTIAL AUTO Routine 10/07/2024 10: 14 AM HISTOLOGY AIDE PHOSPHORUS Routine 10/07/2024 10:14 AM HISTOLOGY AIDE MAGNESIUM Routine 10/07/2024 10:14 AM HISTOLOGY AIDE CBC WITH AUTO DIFFERENTIAL Routine 10/07/2024 10:14 AM HISTOLOGY AIDE BASIC METABOLIC PANEL Routine 10/07/2024 10:14 AM HISTOLOGY AIDE POCT GLUCOSE DEVICE Routine 10/07/2024 7 :50 AM HISTOLOGY AIDE POCT GLUCOSE DEVICE Routine 10/07/2024 7 :49 AM HISTOLOGY AIDE POCT GLUCOSE DEVICE Routine 10/06/2024 8 :26 PM HISTOLOGY AIDE LIPID PANEL Routine 10/06/2024 8:25 PM HISTOLOGY AIDE EGFR Routine 10/06/2024 8:25 PM HISTOLOGY AIDE DIFFERENTIAL AUTO Routine 10/06/2024 8:2 5 PM HISTOLOGY AIDE HEMOGLOBIN A1C Routine 10/06/2024 8:25 PM HISTOLOGY AIDE APTT Routine 10/06/2024 8:25 PM HISTOLOGY AIDE PROTIME-INR Routine 10/06/2024 8:25 PM HISTOLOGY AIDE CBC WITH AUTO DIFFERENTIAL Routine 10/06/2024 8:25 PM HISTOLOGY AIDE PHOSPHORUS Routine 10/06/2024 8:25 PM HISTOLOGY AIDE MAGNESIUM Routine 10/06/2024 8:25 PM HISTOLOGY AIDE COMPREHENSIVE METABOLIC PANEL Routine 10/06/2024 8:25 PM HISTOLOGY AIDE RESPIRATORY PATHOGEN PANEL Routine 10/06/2024 8:25 PM HISTOLOGY AIDE POCT GLUCOSE DEVICE Routine 10/06/2024 7 :32 PM HISTOLOGY AIDE POCT GLUCOSE DEVICE Routine 10/06/2024 6 :28 PM HISTOLOGY AIDE POCT GLUCOSE DEVICE Routine 10/06/2024 5 :25 PM HISTOLOGY AIDE TRANSTHORACIC ECHO (TTE) COMPLETE W DOPPLER/CF W CONTRAST Routine 10/06/2024 4:47 PM HISTOLOGY AIDE XR CHEST PA LATERAL 2 VIEWS IP Routine 10/06/2024 2:48 PM HISTOLOGY AIDE ECG 12-LEAD Routine 10/06/2024 10:30 AM HISTOLOGY AIDE Presence of cardiac pacemaker DEVICE CHECK - IN OFFICE Routine 10/06/2024 9:58 AM HISTOLOGY AIDE Presence of cardiac pacemaker SCREENING MAMMOGRAM BILATERAL W JUAN CARLOS Routine 09/29/2017 12:59 PM HISTOLOGY AIDE from Last 3 Months or Most Recently Relevant to Health Maintenance Results * POCT glucose (10/10/2024 11:22 AM HISTOLOGY AIDE) Glucose, POC 172 70 - 199 mg/dL Blood 10/10/2024 11:2 2 AM HISTOLOGY AIDE 10/10/2024 11:22 AM HISTOLOGY AIDE Charanjit Zepeda MD PhD LAB POCT ORDERABLES - DE VICE Final Result Performing Organization Address City/[facility] Co sc Phone Number [facility] [place] [address] * POCT glucose (10/10/2024 7:56 AM HISTOLOGY AIDE) Glucose, POC 189 70 - 199 mg/dL Blood 10/10/2024 7:56 AM HISTOLOGY AIDE 10/10/2024 7:56 AM HISTOLOGY AIDE Charanjit Zepeda MD PhD LAB POCT ORDERABLES - DE VICE Final Result Performing Organization Address [facility] Co sc Phone Number [facility] [place] [address] * (ABNORMAL) eGFR (10/09/2024 8:39 PM HISTOLOGY AIDE) eGFR 47(L) >=60 mL/min/1. 73 m2 Comment: Interpretive Data Reference Interval Normal >/= 90 mL/min/1.73m2 Mildly decreased* 60 - 89 mL/min/1.73m2 Mildly to moderately decreased 45 - 59 mL/min/1.73m2 Moderately to severely decreased 30 - 44 mL/min/1.73m2 Severely decreased 15 - 29 mL/min/1.73m2 Kidney Failure < 15 mL/min/1.73m2 *Relative to young adult level Estimated glomerular filtration rate is determined by the 2020 CKD-EPI equation recommended by the National Kidney Foundation (A Unifying Approach to GFR Estimation: Recommendations of the NKF-ASK Task Force on Reassessing the Inclusion of Race in Diagnosing Kidney Disease, JASN 2020). The CKD-EPI equation should not be used for patients with unstable renal function and has not been validated in children and those over 70. Current interpretive data was last reviewed 2021. Blood 10/09/2024 8:39 PM HISTOLOGY AIDE 10/09/2024 9:23 PM HISTOLOGY AIDE us Migdalia Hampton MD LAB BLOOD ORDERABLES Final Res ult [facility] One [facility] [place] [address] * (ABNORMAL) Differential, auto (10/09/2024 8:39 PM HISTOLOGY AIDE) Neutrophil abs 7.1(H) 1.5 - 6.5 K/cumm Imm gran abs 0.0 0.0 - 0.1 K/cumm [facility] Lymphocyte abs 0.9 0.8 - 3.3 K/cumm [facility] Monocyte abs 0.7 0.2 - 0.8 K/cumm [facility] Eosinophil abs 0.0 0.0 - 0.5 K/cumm [facility] Basophil abs 0.0 0.0 - 0.1 K/cumm [facility] Neutrophil pct 81.6 % [facility] Comment: Interpretive Data Percent cell count reference ranges are not reported, since discordance with absolute values may lead to misinterpretation of CBC data. Current Interpretive Data was last revised on 2017. Imm gran pct 0.1 % [facility] Comment: Interpretive Data Percent cell count reference ranges are not reported, since discordance with absolute values may lead to misinterpretation of CBC data. Current Interpretive Data was last revised on 2017. Lymphocyte pct 10.1 % [facility] Comment: Interpretive Data Percent cell count reference ranges are not reported, since discordance with absolute values may lead to misinterpretation of CBC data. Current Interpretive Data was last revised on 2017. Monocyte pct 7.8 % [facility] Comment: Interpretive Data Percent cell count reference ranges are not reported, since discordance with absolute values may lead to misinterpretation of CBC data. Current Interpretive Data was last revised on 2017. Eosinophil pct 0.1 % [facility] Comment: Interpretive Data Percent cell count reference ranges are not reported, since discordance with absolute values may lead to misinterpretation of CBC data. Current Interpretive Data was last revised on 2017. Basophil pct 0.3 % [facility] Comment: Interpretive Data Percent cell count reference ranges are not reported, since discordance with absolute values may lead to misinterpretation of CBC data. Current Interpretive Data was last revised on 2017. Blood 10/09/2024 8:39 PM HISTOLOGY AIDE 10/09/2024 9:27 PM HISTOLOGY AIDE us Migdalia Hampton MD LAB BLOOD ORDERABLES Final Res ult [facility] One [facility] [place] [address] * (ABNORMAL) CBC with auto differential (10/09/2024 8:39 PM HISTOLOGY AIDE) Pathologist [facility] WBC 8.7 3.8 - 9.9 K/cumm Hgb 15.1 11.9 - 15.5 g/dL [facility] Hct 44.7 35.6 - 45.5 % [facility] Plt 125(L) 150 - 400 K/cumm [facility] MPV 11.1 9.1 - 12.3 fL [facility] RBC 5.22(H) 3.90 - 5.20 M/cumm [facility] MCV 85.6 81.3 - 96.4 fL [facility] MCH 28.9 27.1 - 33.3 pg [facility] MCHC 33.8 32.3 - 35.7 g/dL [facility] RDW CV 13.0 11.1 - 14.9 % [facility] RDW SD 39.9 35.7 - 48.1 fL [facility] NRBC abs 0.00 0.00 - 0.01 K/cumm [facility] Blood 10/09/2024 8:39 PM HISTOLOGY AIDE 10/09/2024 9:27 PM HISTOLOGY AIDE us Migdalia Hampton MD LAB BLOOD ORDERABLES Final Res ult Performing Organization Address [facility] [place] [address] * Type and screen (10/09/2024 8:39 PM HISTOLOGY AIDE) Eriberto, indirect Negative ABO Rh O Positive [facility] Blood 10/09/2024 8:39 PM HISTOLOGY AIDE 10/09/2024 9:24 PM HISTOLOGY AIDE Narrative [facility] - 10/09/2024 10:38 PM HISTOLOGY AIDE Has the patient had Daratumumab or Isatuximab in the past 6 months?->Unknown Migdalia Hampton MD LAB BLOOD BANK TEST ORDERABLES Final Result Performing Organization Address [facility] de Phone Number [facility] [place] [address] * Phosphorus (10/09/2024 8:39 PM HISTOLOGY AIDE) Phosphorus, pl 4.4 2.3 - 4.5 mg/dL Blood 10/09/2024 8:39 PM HISTOLOGY AIDE 10/09/2024 9:23 PM HIST[address]Y AIDE Result [facility] Migdalia Hampton MD LAB BLOOD ORDERABLES Final Res ult Performing Organization Address [facility] [place] [address] * Magnesium (10/09/2024 8:39 PM HISTOLOGY AIDE) Magnesium 1.7 1.4 - 2.5 mg/dL Blood 10/09/2024 8:39 PM HISTOLOGY AIDE 10/09/2024 9:23 PM HISTOLOGY AIDE Migdalia Hampton MD LAB BLOOD ORDERABLES Final Res ult Performing Organization Address [facility] Co de Phone Number [facility] [place] [address] * (ABNORMAL) Basic metabolic panel (10/09/2024 8:39 PM HISTOLOGY AIDE) Sodium 139 135 - 145 mmol/L Potassium, pl 4.9 3.3 - 4.9 mmol/L [facility] Chloride 107 97 - 110 mmol/L [facility] CO2 21(L) 22 - 32 mmol/L [facility] Anion gap 11 2 - 15 mmol/L [facility] BUN 27(H) 6 - 25 mg/dL [facility] Creatinine 1.31(H) 0.60 - 1.10 mg/dL [facility] Glucose 165 70 - 199 mg/dL [facility] Comment: Interpretive Data Fasting glucose >/= 126 mg/dl is diagnostic for diabetes. Fasting is defined as no caloric intake for at least 8 hours. Fasting glucose between 100 mg/dl to 125 mg/dl is diagnostic of prediabetes. In a patient with classic symptoms of hyperglycemia or hyperglycemic crisis, a random glucose >/= 200 mg/dl is diagnostic for diabetes. In the absence of unequivocal hyperglycemia, results should be confirmed by repeat testing. The classification and Diagnosis of Diabetes Diabetes Care 202; 46: S19-S40. Current interpretive data was last revised 2022. Calcium 8.5 8.5 - 10.3 mg/dL [facility] Blood 10/09/2024 8:39 PM HISTOLOGY AIDE 10/09/2024 9:23 PM HISTOLOGY AIDE us Migdalia Hampton MD LAB BLOOD ORDERABLES Final Res ult [facility] [place] [address] * POCT glucose (10/09/2024 7:52 PM HISTOLOGY AIDE) Glucose, POC 139 70 - 199 mg/dL Blood 10/09/2024 7:52 PM HISTOLOGY AIDE 10/09/2024 7:52 PM HISTOLOGY AIDE Charanjit Zepeda MD PhD LAB POCT ORDERABLES - DE VICE Final Result Performing Organization Address [facility] [place] [address] * POCT glucose (10/09/2024 5:31 PM HISTOLOGY AIDE) Glucose, POC 146 70 - 199 mg/dL Blood 10/09/2024 5:31 PM HISTOLOGY AIDE 10/09/2024 5:31 PM HISTOLOGY AIDE Charanjit Zepeda MD PhD LAB POCT ORDERABLES - DE VICE Final Result Performing Organization Address [facility] [place] [address] * POCT glucose (10/09/2024 2:24 PM HISTOLOGY AIDE) Glucose, POC 140 70 - 199 mg/dL Blood 10/09/2024 2:24 PM HISTOLOGY AIDE 10/09/2024 2:24 PM HISTOLOGY AIDE Charanjit Zepeda MD PhD LAB POCT ORDERABLES - DE VICE Final Result Performing Organization Address [facility] [place] [address] * PACEMAKER GENERATOR CHANGE - DUAL (10/09/2024 12:50 PM HISTOLOGY AIDE) Anatomical Region Laterality Modality X-Ray Angiograph y Narrative 10/09/2024 1:13 PM HISTOLOGY AIDE PACEMAKER GENERATOR REPLACEMENT PROCEDURE REPORT Patient Name: Marlys Phan Patient date of : 1965 Date of Procedure: 10/09/2024 OPERATORS: 1. Roc Dumont MD 2. Antoni Patton MD PROCEDURES: 1. Implantation of a dual chamber pacemaker generator 2. Generator removal 3. Temporary femoral pacemaker placement and removal MEDICATIONS Lidocaine 1% 20 cc Vancomycin 1 gm IV INDICATION FOR PROCEDURE: PPM at EOS PATIENT HISTORY: Ms. Phan is a 58 y/o woman with history of ADHC: cleft mitral valve and primum ASD, severe TR and MR, s/p repair by Dr. Izaguirre in 2004. Also with complete heart block s/p epicardial dual chamber pacemaker (Medtronic, abdominal generator) at index surgical repair with generator replacement 2012, coronary artery disease, HTN, T2DM, and GERD who is admitted 10/06/24 for urgent generator change as device was found to be EOS. Given that patient is dependent and lead parameters unknown, discussed temporary femoral pacing for the case. Discussed option of dual chamber transvenous pacemaker if lead parameters unfavorable. Risks, benefits and alternatives of above were discussed with patient and her sister over the phone who agreed that this was the best way to proceed. PROCEDURE DESCRIPTION: Informed consent was obtained in writing prior to procedure after full detailed explanation of risks, benefits and alternatives and all of the patient's questions were answered. The patient was brought to the cardiac EP lab in a fasting state.The patient was kept on continuous ECG, blood pressure and oxygen saturation monitoring throughout the entire procedure. A procedural time-out was performed per protocol to confirm patient identity and procedure to be performed. Anesthesia monitored patient throughout the procedure and administered analgesics and amnesethetics according to their protocol. Fluoroscopy over the inferior aspect of the midline incision was obtained and confirmed this was the access point for the generator. Right femoral groin was prepped and draped. Using ultrasound guided micropuncture access, a 7 Fr sheath was advanced into the circulation through which a CRD-Hex catheter was placed on the RV septum with excellent threshold. Given that device was VVI at EOS, overdrive pacing was performed through the transvenous catheter at 85 bpm during the procedure. The abdominal site was then prepped and draped in the usual sterile fashion. Local anesthesia was obtained with 1% lidocaine the left infraclavicular region after completion of the IV antibiotics. A #10 surgical blade was used to make an incision over the existing L sided scar. A mixture of sharp and blunt instrument dissection and bovie cautery were used to dissect the subcutaneous tissue to the pocket . The pacemaker pocket was irrigated with Ancef 1 gm in a 1L sterile saline solution and then the generator was inserted into the pocket. The leads were disconnected. No insulation defects were seen. The pacemaker leads were then attached to the new generator. The pocket was extended slightly medially to accommodate the new generator. A medium Tyrex Lot was hydrated in saline, trimmed, and placed in the pocket. The pocket was sutured closed in three layers with 2-0, 3-0 and 4-0 Vicryl. Steri strips were paced over the incision and a sterile dressing was placed. The patient tolerated the procedure well without any complications. IMPLANT INFORMATION Generator: [employer] [id number] RA lead:Medtronic 4968-35 SN [id number] Implant date 06/29/05 RV lead:Medtronic 4968-35 SN [id number] Implant date 06/29/05 (Epicardial leads placed surgically) LEAD IMPLANT TESTING: RA lead:0.75 V / 0.4 ms, 532 ohms, 1.3 mv P wave RV lead: 1.5 V / 0.4 ms, 551 ohms, <dependent> PACEMAKER PROGRAMMING: Mode: DDDR Low rate: 70 bpm Upper track: 130 bpm Upper sensor: 130 bpm Mode switch: On Paced AV: 200 ms Sensed AV: 180 ms Amplitude/Pulse Width: RA 1.5 V/0.40 ms RV 3.0V/0.40 ms CONCLUSION: Successful generator replacement RECOMMENDATIONS: Remove dressing on 10/09/24 No driving for 5 days Attestation I was present for the entire procedure and prepared this report. Roc Dumont M.D. Airfield Managerring barker operator [facility] Division of Cardiology, [place] [address] [place] [address] us Charanjit Zepeda MD PhD CV ELECTROPHYSIOLOGY PRO CS Final Result * [place] AN ELECTIVE SUPRAGLOTTIC AIRWAY, [place] AN PROCEDURE PLACEHOLDER (10/09/2024 11:44 AM HISTOLOGY AIDE) Ana Cruz CRNA - 10/09/2024 11:44 AM HISTOLOGY AIDE Ana Briones CRNA 10/09/2024 11:46 AM Airway Patient location: OR Urgency: elective Indications for airway management: anesthesia Difficult airway: no Staff: Supervising provider: Sheridan Berry MD Placed by: CAFETERIA AIDE: Ana Briones CRNA Emergent airway documentation: Risks and benefits discussed: yes Consent obtained: yes Consent given by: patient Airway prep: Preoxygenated: yes Spontaneous ventilation during airway: present Sedation level during airway: deep Final airway details: Final airway type: supraglottic airway Final supraglottic airway: IGel SGA size: 3 Number of attempts: 1 Sheridan Berry MD ANESTHESIA ORDERABLES F inal Result * POCT glucose (10/09/2024 10:19 AM HISTOLOGY AIDE) Glucose, POC 192 70 - 199 mg/dL Blood 10/09/2024 10:1 9 AM HISTOLOGY AIDE 10/09/2024 10:19 AM HISTOLOGY AIDE Charanjit Zepeda MD PhD LAB POCT ORDERABLES - DE VICE Final Result Performing Organization Address [facility] Phone Number [facility] [place] [address] * POCT glucose (10/09/2024 7:55 AM HISTOLOGY AIDE) Glucose, POC 176 70 - 199 mg/dL Blood 10/09/2024 7:55 AM HISTOLOGY AIDE 10/09/2024 7:55 AM HISTOLOGY AIDE Charanjit Zepeda MD PhD LAB POCT ORDERABLES - DE VICE Final Result Performing Organization Address [facility] Co sc Phone Number [facility] [place] [address] * (ABNORMAL) eGFR (10/08/2024 9:46 PM HISTOLOGY AIDE) eGFR 41(L) >=60 mL/min/1. 73 m2 Comment: Interpretive Data Reference Interval Normal >/= 90 mL/min/1.73m2 Mildly decreased* 60 - 89 mL/min/1.73m2 Mildly to moderately decreased 45 - 59 mL/min/1.73m2 Moderately to severely decreased 30 - 44 mL/min/1.73m2 Severely decreased 15 - 29 mL/min/1.73m2 Kidney Failure < 15 mL/min/1.73m2 *Relative to young adult level Estimated glomerular filtration rate is determined by the 2020 CKD-EPI equation recommended by the National Kidney Foundation (A Unifying Approach to GFR Estimation: Recommendations of the NKF-ASK Task Force on Reassessing the Inclusion of Race in Diagnosing Kidney Disease, JASN 202). The CKD-EPI equation should not be used for patients with unstable renal function and has not been validated in children and those over 70. Current interpretive data was last reviewed 2021. Blood 10/08/2024 9:46 PM HISTOLOGY AIDE 10/08/2024 10:26 PM HISTOLOGY AIDE us Migdalia Hampton MD LAB BLOOD ORDERABLES Final Res ult [facility] [place] [address] * Differential, auto (10/08/2024 9:46 PM HISTOLOGY AIDE) Neutrophil abs 5.2 1.5 - 6.5 K/cumm Imm gran abs 0.0 0.0 - 0.1 K/cumm [facility] Lymphocyte abs 1.2 0.8 - 3.3 K/cumm [facility] Monocyte abs 0.6 0.2 - 0.8 K/cumm [facility] Eosinophil abs 0.0 0.0 - 0.5 K/cumm [facility] Basophil abs 0.0 0.0 - 0.1 K/cumm [facility] Neutrophil pct 73.3 % [facility] Comment: Interpretive Data Percent cell count reference ranges are not reported, since discordance with absolute values may lead to misinterpretation of CBC data. Current Interpretive Data was last revised on 2017. Imm gran pct 0.3 % [facility] Comment: Interpretive Data Percent cell count reference ranges are not reported, since discordance with absolute values may lead to misinterpretation of CBC data. Current Interpretive Data was last revised on 2017. Lymphocyte pct 17.4 % [facility] Comment: Interpretive Data Percent cell count reference ranges are not reported, since discordance with absolute values may lead to misinterpretation of CBC data. Current Interpretive Data was last revised on 2017. Monocyte pct 8.1 % [facility] Comment: Interpretive Data Percent cell count reference ranges are not reported, since discordance with absolute values may lead to misinterpretation of CBC data. Current Interpretive Data was last revised on 2017. Eosinophil pct 0.3 % [facility] Comment: Interpretive Data Percent cell count reference ranges are not reported, since discordance with absolute values may lead to misinterpretation of CBC data. Current Interpretive Data was last revised on 2017. Basophil pct 0.6 % [facility] Comment: Interpretive Data Percent cell count reference ranges are not reported, since discordance with absolute values may lead to misinterpretation of CBC data. Current Interpretive Data was last revised on 2017. Blood 10/08/2024 9:46 PM HISTOLOGY AIDE 10/08/2024 10:27 PM HISTOLOGY AIDE us Migdalia Hampton MD LAB BLOOD ORDERABLES Final Res ult [facility] One [facility] [place] [address] * CBC with auto differential (10/08/2024 9:46 PM HISTOLOGY AIDE) WBC 7.1 3.8 - 9.9 K/cumm Hgb 15.0 11.9 - 15.5 g/dL [facility] Hct 45.3 35.6 - 45.5 % [facility] Plt 196 150 - 400 K/cumm [facility] MPV 11.2 9.1 - 12.3 fL [facility] RBC 5.18 3.90 - 5.20 M/cumm [facility] MCV 87.5 81.3 - 96.4 fL [facility] MCH 29.0 27.1 - 33.3 pg [facility] MCHC 33.1 32.3 - 35.7 g/dL [facility] RDW CV 13.1 11.1 - 14.9 % [facility] RDW SD 42.0 35.7 - 48.1 fL [facility] NRBC abs 0.00 0.00 - 0.01 K/cumm [facility] Blood 10/08/2024 9:46 PM HISTOLOGY AIDE 10/08/2024 10:27 PM HISTOLOGY AIDE Migdalia Hampton MD LAB BLOOD ORDERABLES Final Res ult Performing Organization Address City/[facility] Co de Phone Number [facility] [place] [address] * Phosphorus (10/08/2024 9:46 PM HISTOLOGY AIDE) Phosphorus, pl 4.2 2.3 - 4.5 mg/dL Blood 10/08/2024 9:46 PM HISTOLOGY AIDE 10/08/2024 10:26 PM HISTOLOGY AIDE Migdalia Hampton MD LAB BLOOD ORDERABLES Final Res ult Performing Organization Address [facility] de Phone Number [facility] [place] [address] * Magnesium (10/08/2024 9:46 PM HISTOLOGY AIDE) Magnesium 1.8 1.4 - 2.5 mg/dL Blood 10/08/2024 9:46 PM HISTOLOGY AIDE 10/08/2024 10:26 PM HISTOLOGY AIDE Migdalia Hampton MD LAB BLOOD ORDERABLES Final Res ult Performing Organization Address [facility] de Phone Number [facility] [place] [address] * (ABNORMAL) Basic metabolic panel (10/08/2024 9:46 PM HISTOLOGY AIDE) Sodium 139 135 - 145 mmol/L Potassium, pl 4.8 3.3 - 4.9 mmol/L [facility] Chloride 105 97 - 110 mmol/L [facility] CO2 24 22 - 32 mmol/L [facility] Anion gap 10 2 - 15 mmol/L [facility] BUN 27(H) 6 - 25 mg/dL [facility] Creatinine 1.46(H) 0.60 - 1.10 mg/dL [facility] Glucose 194 70 - 199 mg/dL [facility] Comment: Interpretive Data Fasting glucose >/= 126 mg/dl is diagnostic for diabetes. Fasting is defined as no caloric intake for at least 8 hours. Fasting glucose between 100 mg/dl to 125 mg/dl is diagnostic of prediabetes. In a patient with classic symptoms of hyperglycemia or hyperglycemic crisis, a random glucose >/= 200 mg/dl is diagnostic for diabetes. In the absence of unequivocal hyperglycemia, results should be confirmed by repeat testing. The classification and Diagnosis of Diabetes Diabetes Care 2021; 46: S19-S40. Current interpretive data was last revised 2022. Calcium 8.9 8.5 - 10.3 mg/dL [facility] Blood 10/08/2024 9:46 PM HISTOLOGY AIDE 10/08/2024 10:26 PM HISTOLOGY AIDE us Migdalia Hampton MD LAB BLOOD ORDERABLES Final Res ult Performing Organization Address City/[facility]/ZIP Co de Phone Number [facility] [place] [address] * POCT glucose (10/08/2024 9:34 PM HISTOLOGY AIDE) [facility] Glucose, POC 194 70 - 199 mg/dL Blood 10/08/2024 9:34 PM HISTOLOGY AIDE 10/08/2024 9:34 PM HISTOLOGY AIDE us Charanjit Zepeda MD PhD LAB POCT ORDERABLES - DE VICE Final Result Performing Organization Address [facility]/ZIP Co de Phone Number [facility] [place] [address] * POCT glucose (10/08/2024 4:47 PM HISTOLOGY AIDE) Glucose, POC 151 70 - 199 mg/dL Blood 10/08/2024 4:47 PM HISTOLOGY AIDE 10/08/2024 4:47 PM HISTOLOGY AIDE Charanjit Zepeda MD PhD LAB POCT ORDERABLES - DE VICE Final Result Performing Organization Address City/[facility] Co de Phone Number [facility] [place] [address] * POCT glucose (10/08/2024 11:54 AM HISTOLOGY AIDE) Glucose, POC 135 70 - 199 mg/dL Blood 10/08/2024 11:5 4 AM HISTOLOGY AIDE 10/08/2024 11:54 AM HISTOLOGY AIDE Charanjit Zepeda MD PhD LAB POCT ORDERABLES - DE VICE Final Result Performing Organization Address [facility] Co de Phone Number [facility] [place] [address] * POCT glucose (10/08/2024 7:44 AM HISTOLOGY AIDE) Glucose, POC 152 70 - 199 mg/dL Blood 10/08/2024 7:44 AM HISTOLOGY AIDE 10/08/2024 7:44 AM HISTOLOGY AIDE us Charanjit Zepeda MD PhD LAB POCT ORDERABLES - DE VICE Final Result Performing Organization Address [facility] Co de Phone Number [facility] [place] [address] * (ABNORMAL) Differential, auto (10/07/2024 9:51 PM HISTOLOGY AIDE) Neutrophil abs 7.0(H) 1.5 - 6.5 K/cumm Imm gran abs 0.0 0.0 - 0.1 K/cumm [facility] Lymphocyte abs 0.7(L) 0.8 - 3.3 K/cumm [facility] Monocyte abs 0.6 0.2 - 0.8 K/cumm [facility] Eosinophil abs 0.0 0.0 - 0.5 K/cumm [facility] Basophil abs 0.0 0.0 - 0.1 K/cumm [facility] Neutrophil pct 83.0 % [facility] Comment: Interpretive Data Percent cell count reference ranges are not reported, since discordance with absolute values may lead to misinterpretation of CBC data. Current Interpretive Data was last revised on 2017. Imm gran pct 0.4 % [facility] Comment: Interpretive Data Percent cell count reference ranges are not reported, since discordance with absolute values may lead to misinterpretation of CBC data. Current Interpretive Data was last revised on 2017. Lymphocyte pct 8.8 % [facility] Comment: Interpretive Data Percent cell count reference ranges are not reported, since discordance with absolute values may lead to misinterpretation of CBC data. Current Interpretive Data was last revised on 2017. Monocyte pct 7.5 % [facility] Comment: Interpretive Data Percent cell count reference ranges are not reported, since discordance with absolute values may lead to misinterpretation of CBC data. Current Interpretive Data was last revised on 2017. Eosinophil pct 0.1 % [facility] Comment: Interpretive Data Percent cell count reference ranges are not reported, since discordance with absolute values may lead to misinterpretation of CBC data. Current Interpretive Data was last revised on 2017. Basophil pct 0.2 % [facility] Comment: Interpretive Data Percent cell count reference ranges are not reported, since discordance with absolute values may lead to misinterpretation of CBC data. Current Interpretive Data was last revised on 2017. Blood 10/07/2024 9:51 PM HISTOLOGY AIDE 10/07/2024 10:34 PM HISTOLOGY AIDE us Amarjit Landry MD LAB BLOOD ORDERABLES Final Result [facility] One [facility] [place] [address] * CBC with auto differential (10/07/2024 9:51 PM HISTOLOGY AIDE) [facility] WBC 8.4 3.8 - 9.9 K/cumm Hgb 14.9 11.9 - 15.5 g/dL [facility] Hct 44.9 35.6 - 45.5 % [facility] Plt 183 150 - 400 K/cumm [facility] MPV 11.3 9.1 - 12.3 fL [facility] RBC 5.17 3.90 - 5.20 M/cumm [facility] MCV 86.8 81.3 - 96.4 fL [facility] MCH 28.8 27.1 - 33.3 pg [facility] MCHC 33.2 32.3 - 35.7 g/dL [facility] RDW CV 13.2 11.1 - 14.9 % [facility] RDW SD 41.4 35.7 - 48.1 fL [facility] NRBC abs 0.00 0.00 - 0.01 K/cumm [facility] Blood 10/07/2024 9:51 PM HISTOLOGY AIDE 10/07/2024 10:34 PM HISTOLOGY AIDE Amarjit Landry MD LAB BLOOD ORDERABLES Final Result [facility] One [facility] [place] [address] * (ABNORMAL) eGFR (10/07/2024 8:32 PM HISTOLOGY AIDE) [facility] eGFR 51(L) >=60 mL/min/1. 73 m2 Comment: Interpretive Data Reference Interval Normal >/= 90 mL/min/1.73m2 Mildly decreased* 60 - 89 mL/min/1.73m2 Mildly to moderately decreased 45 - 59 mL/min/1.73m2 Moderately to severely decreased 30 - 44 mL/min/1.73m2 Severely decreased 15 - 29 mL/min/1.73m2 Kidney Failure < 15 mL/min/1.73m2 *Relative to young adult level Estimated glomerular filtration rate is determined by the 2020 CKD-EPI equation recommended by the National Kidney Foundation (A Unifying Approach to GFR Estimation: Recommendations of the NKF-ASK Task Force on Reassessing the Inclusion of Race in Diagnosing Kidney Disease, JASN 2020). The CKD-EPI equation should not be used for patients with unstable renal function and has not been validated in children and those over 70. Current interpretive data was last reviewed 2021. Blood 10/07/2024 8:32 PM HISTOLOGY AIDE 10/07/2024 8:59 PM HISTOLOGY AIDE us Migdalia Hampton MD LAB BLOOD ORDERABLES Final Res ult Performing Organization Address [facility] Co de Phone Number [facility] [place] [address] * Phosphorus (10/07/2024 8:32 PM HISTOLOGY AIDE) Phosphorus, pl 3.8 2.3 - 4.5 mg/dL Blood 10/07/2024 8:32 PM HISTOLOGY AIDE 10/07/2024 8:59 PM HISTOLOGY AIDE us Migdalia Hampton MD LAB BLOOD ORDERABLES Final Res ult Performing Organization Address [facility] Co de Phone Number [facility] [place] [address] * Magnesium (10/07/2024 8:32 PM HISTOLOGY AIDE) Magnesium 2.0 1.4 - 2.5 mg/dL Blood 10/07/2024 8:32 PM HISTOLOGY AIDE 10/07/2024 8:59 PM HISTOLOGY AIDE Result Peter Hampton MD LAB BLOOD ORDERABLES Final Res ult Performing Organization Address [facility] Co de Phone Number [facility] [place] [address] * (ABNORMAL) Basic metabolic panel (10/07/2024 8:32 PM HISTOLOGY AIDE) Sodium 141 135 - 145 mmol/L Potassium, pl 4.5 3.3 - 4.9 mmol/L [facility] Chloride 109 97 - 110 mmol/L [facility] CO2 22 22 - 32 mmol/L [facility] Anion gap 10 2 - 15 mmol/L [facility] BUN 22 6 - 25 mg/dL [facility] Creatinine 1.22(H) 0.60 - 1.10 mg/dL [facility] Glucose 165 70 - 199 mg/dL [facility] Comment: Interpretive Data Fasting glucose >/= 126 mg/dl is diagnostic for diabetes. Fasting is defined as no caloric intake for at least 8 hours. Fasting glucose between 100 mg/dl to 125 mg/dl is diagnostic of prediabetes. In a patient with classic symptoms of hyperglycemia or hyperglycemic crisis, a random glucose >/= 200 mg/dl is diagnostic for diabetes. In the absence of unequivocal hyperglycemia, results should be confirmed by repeat testing. The classification and Diagnosis of Diabetes Diabetes Care 2021; 46: S19-S40. Current interpretive data was last revised 2022. Calcium 9.2 8.5 - 10.3 mg/dL [facility] Blood 10/07/2024 8:32 PM HISTOLOGY AIDE 10/07/2024 8:59 PM HISTOLOGY AIDE us Migdalia Hampton MD LAB BLOOD ORDERABLES Final Res ult [facility] One [facility] [place] [address] * POCT glucose (10/07/2024 8:22 PM HISTOLOGY AIDE) Glucose, POC 149 70 - 199 mg/dL Blood 10/07/2024 8:22 PM HISTOLOGY AIDE 10/07/2024 8:22 PM HISTOLOGY AIDE us Charanjit Zepeda MD PhD LAB POCT ORDERABLES - DE VICE Final Result Performing Organization Address [facility]/ZIP Co de Phone Number [facility] [place] [address] * (ABNORMAL) POCT glucose (10/07/2024 4:10 PM HISTOLOGY AIDE) [facility] Glucose, POC 208(H) 70 - 199 mg/dL Blood 10/07/2024 4:10 PM HISTOLOGY AIDE 10/07/2024 4:10 PM HISTOLOGY AIDE us Charanjit Zepeda MD PhD LAB POCT ORDERABLES - DE VICE Final Result [facility] [place] [address] * (ABNORMAL) POCT glucose (10/07/2024 11:30 AM HISTOLOGY AIDE) [facility] Glucose, POC 230(H) 70 - 199 mg/dL Blood 10/07/2024 11:3 0 AM HISTOLOGY AIDE 10/07/2024 11:30 AM HISTOLOGY AIDE us Charanjit Zepeda MD PhD LAB POCT ORDERABLES - DE VICE Final Result Performing Organization Address City/[facility] Co de Phone Number [facility] [place] [address] * (ABNORMAL) eGFR (10/07/2024 10:14 AM HISTOLOGY AIDE) [facility] eGFR 52(L) >=60 mL/min/1. 73 m2 Comment: Interpretive Data Reference Interval Normal >/= 90 mL/min/1.73m2 Mildly decreased* 60 - 89 mL/min/1.73m2 Mildly to moderately decreased 45 - 59 mL/min/1.73m2 Moderately to severely decreased 30 - 44 mL/min/1.73m2 Severely decreased 15 - 29 mL/min/1.73m2 Kidney Failure < 15 mL/min/1.73m2 *Relative to young adult level Estimated glomerular filtration rate is determined by the 2020 CKD-EPI equation recommended by the National Kidney Foundation (A Unifying Approach to GFR Estimation: Recommendations of the NKF-ASK Task Force on Reassessing the Inclusion of Race in Diagnosing Kidney Disease, JASN 202). The CKD-EPI equation should not be used for patients with unstable renal function and has not been validated in children and those over 70. Current interpretive data was last reviewed 2021. Blood 10/07/2024 10:1 4 AM HISTOLOGY AIDE 10/07/2024 11:24 AM HISTOLOGY AIDE us Migdalia Hampton MD LAB BLOOD ORDERABLES Final Res ult [facility] One [facility] [place] [address] * (ABNORMAL) Differential, auto (10/07/2024 10:14 AM HISTOLOGY AIDE) Neutrophil abs 8.7(H) 1.5 - 6.5 K/cumm Imm gran abs 0.0 0.0 - 0.1 K/cumm [facility] Lymphocyte abs 0.7(L) 0.8 - 3.3 K/cumm [facility] Monocyte abs 0.3 0.2 - 0.8 K/cumm [facility] Eosinophil abs 0.0 0.0 - 0.5 K/cumm [facility] Basophil abs 0.0 0.0 - 0.1 K/cumm [facility] Neutrophil pct 89.5 % [facility] Comment: Interpretive Data Percent cell count reference ranges are not reported, since discordance with absolute values may lead to misinterpretation of CBC data. Current Interpretive Data was last revised on 2017. Imm gran pct 0.4 % [facility] Comment: Interpretive Data Percent cell count reference ranges are not reported, since discordance with absolute values may lead to misinterpretation of CBC data. Current Interpretive Data was last revised on 2017. Lymphocyte pct 6.9 % [facility] Comment: Interpretive Data Percent cell count reference ranges are not reported, since discordance with absolute values may lead to misinterpretation of CBC data. Current Interpretive Data was last revised on 2017. Monocyte pct 3.1 % [facility] Comment: Interpretive Data Percent cell count reference ranges are not reported, since discordance with absolute values may lead to misinterpretation of CBC data. Current Interpretive Data was last revised on 2017. Eosinophil pct 0.0 % [facility] Comment: Interpretive Data Percent cell count reference ranges are not reported, since discordance with absolute values may lead to misinterpretation of CBC data. Current Interpretive Data was last revised on 2017. Basophil pct 0.1 % [facility] Comment: Interpretive Data Percent cell count reference ranges are not reported, since discordance with absolute values may lead to misinterpretation of CBC data. Current Interpretive Data was last revised on 2017. Blood 10/07/2024 10:1 4 AM HISTOLOGY AIDE 10/07/2024 11:24 AM HISTOLOGY AIDE us Migdalia Hampton MD LAB BLOOD ORDERABLES Final Res ult [facility] One [facility] [place] [address] * (ABNORMAL) CBC with auto differential (10/07/2024 10:14 AM HISTOLOGY AIDE) WBC 9.7 3.8 - 9.9 K/cumm Hgb 15.8(H) 11.9 - 15.5 g/dL [facility] Hct 46.3(H) 35.6 - 45.5 % [facility] Plt 185 150 - 400 K/cumm [facility] MPV 11.4 9.1 - 12.3 fL [facility] RBC 5.43(H) 3.90 - 5.20 M/cumm [facility] MCV 85.3 81.3 - 96.4 fL [facility] MCH 29.1 27.1 - 33.3 pg [facility] MCHC 34.1 32.3 - 35.7 g/dL [facility] RDW CV 13.2 11.1 - 14.9 % [facility] RDW SD 40.4 35.7 - 48.1 fL [facility] NRBC abs 0.00 0.00 - 0.01 K/cumm [facility] Blood 10/07/2024 10:1 4 AM HISTOLOGY AIDE 10/07/2024 11:24 AM HISTOLOGY AIDE us Migdalia Hampton MD LAB BLOOD ORDERABLES Final Res ult Performing Organization Address [facility] de Phone Number [facility] [place] [address] * Phosphorus (10/07/2024 10:14 AM HISTOLOGY AIDE) Pathologist [facility] [place] Phosphorus, pl 3.9 2.3 - 4.5 mg/dL Blood 10/07/2024 10:1 4 AM HISTOLOGY AIDE 10/07/2024 11:24 AM HISTOLOGY AIDE us Migdalia Hampton MD LAB BLOOD ORDERABLES Final Res ult Performing Organization Address [facility] de Phone Number [facility] [place] [address] * Magnesium (10/07/2024 10:14 AM HISTOLOGY AIDE) [facility] Magnesium 1.6 1.4 - 2.5 mg/dL Blood 10/07/2024 10:1 4 AM HISTOLOGY AIDE 10/07/2024 11:24 AM HISTOLOGY AIDE us Migdalia Hampton MD LAB BLOOD ORDERABLES Final Res ult Performing Organization Address [facility] [place] [address] * (ABNORMAL) Basic metabolic panel (10/07/2024 10:14 AM HISTOLOGY AIDE) [facility] Sodium 140 135 - 145 mmol/L Potassium, pl 4.9 3.3 - 4.9 mmol/L [facility] Chloride 106 97 - 110 mmol/L [facility] CO2 22 22 - 32 mmol/L [facility] Anion gap 12 2 - 15 mmol/L [facility] BUN 22 6 - 25 mg/dL [facility] Creatinine 1.19(H) 0.60 - 1.10 mg/dL [facility] Glucose 315(H) 70 - 199 mg/dL [facility] Comment: Interpretive Data Fasting glucose >/= 126 mg/dl is diagnostic for diabetes. Fasting is defined as no caloric intake for at least 8 hours. Fasting glucose between 100 mg/dl to 125 mg/dl is diagnostic of prediabetes. In a patient with classic symptoms of hyperglycemia or hyperglycemic crisis, a random glucose >/= 200 mg/dl is diagnostic for diabetes. In the absence of unequivocal hyperglycemia, results should be confirmed by repeat testing. The classification and Diagnosis of Diabetes Diabetes Care 2021; 46: S19-S40. Current interpretive data was last revised 2022. Calcium 9.0 8.5 - 10.3 mg/dL [facility] Blood 10/07/2024 10:1 4 AM HISTOLOGY AIDE 10/07/2024 11:24 AM HISTOLOGY AIDE Migdalia Hampton MD LAB BLOOD ORDERABLES Final Res ult Performing Organization Address City/[facility]/ZIP Co de Phone Number [facility] [place] [address] * (ABNORMAL) POCT glucose (10/07/2024 7:50 AM HISTOLOGY AIDE) Glucose, POC 270(H) 70 - 199 mg/dL Blood 10/07/2024 7:50 AM HISTOLOGY AIDE 10/07/2024 7:50 AM HISTOLOGY AIDE Migdalia Hampton MD LAB POCT ORDERABLES - DEVICE F inal Result Performing Organization Address City/[facility]/ZIP Co de Phone Number [facility] [place] [address] * (ABNORMAL) POCT glucose (10/07/2024 7:49 AM HISTOLOGY AIDE) Glucose, POC 254(H) 70 - 199 mg/dL Blood 10/07/2024 7:49 AM HISTOLOGY AIDE 10/07/2024 7:49 AM HISTOLOGY AIDE us Migdalia Hampton MD LAB POCT ORDERABLES - DEVICE F inal Result Performing Organization Address [facility] Co de Phone Number [facility] [place] [address] * (ABNORMAL) POCT glucose (10/06/2024 8:26 PM HISTOLOGY AIDE) Glucose, POC 202(H) 70 - 199 mg/dL Blood 10/06/2024 8:26 PM HISTOLOGY AIDE 10/06/2024 8:26 PM HISTOLOGY AIDE Migdalia Hampton MD LAB POCT ORDERABLES - DEVICE F inal Result Performing Organization Address [facility] de Phone Number [facility] [place] [address] * (ABNORMAL) eGFR (10/06/2024 8:25 PM HISTOLOGY AIDE) eGFR 48(L) >=60 mL/min/1. 73 m2 Comment: Interpretive Data Reference Interval Normal >/= 90 mL/min/1.73m2 Mildly decreased* 60 - 89 mL/min/1.73m2 Mildly to moderately decreased 45 - 59 mL/min/1.73m2 Moderately to severely decreased 30 - 44 mL/min/1.73m2 Severely decreased 15 - 29 mL/min/1.73m2 Kidney Failure < 15 mL/min/1.73m2 *Relative to young adult level Estimated glomerular filtration rate is determined by the 2020 CKD-EPI equation recommended by the National Kidney Foundation (A Unifying Approach to GFR Estimation: Recommendations of the NKF-ASK Task Force on Reassessing the Inclusion of Race in Diagnosing Kidney Disease, JASN 2020). The CKD-EPI equation should not be used for patients with unstable renal function and has not been validated in children and those over 70. Current interpretive data was last reviewed 2021. Blood 10/06/2024 8:25 PM HISTOLOGY AIDE 10/06/2024 9:05 PM HISTOLOGY AIDE us Charanjit Zepeda MD PhD LAB BLOOD ORDERABLES Fin al Result [facility] One [facility] [place] [address] * Differential, auto (10/06/2024 8:25 PM HISTOLOGY AIDE) Neutrophil abs 4.8 1.5 - 6.5 K/cumm Comment:Collection date/time has been modified to: 20:25:00. Previous collection date/time: 17:30:00. Imm gran abs 0.0 0.0 - 0.1 K/cumm [facility] Comment:Collection date/time has been modified to: 20:25:00. Previous collection date/time: 17:30:00. Lymphocyte abs 1.3 0.8 - 3.3 K/cumm [facility] Comment:Collection date/time has been modified to: 20:25:00. Previous collection date/time: 17:30:00. Monocyte abs 0.5 0.2 - 0.8 K/cumm [facility] Comment:Collection date/time has been modified to: 20:25:00. Previous collection date/time: 17:30:00. Eosinophil abs 0.0 0.0 - 0.5 K/cumm [facility] Comment:Collection date/time has been modified to: 20:25:00. Previous collection date/time: 17:30:00. Basophil abs 0.0 0.0 - 0.1 K/cumm [facility] Comment:Collection date/time has been modified to: 20:25:00. Previous collection date/time: 17:30:00. Neutrophil pct 72.5 % [facility] Comment: Collection date/time has been modified to: 20:25:00. Previous collection date/time: 17:30:00. Interpretive Data Percent cell count reference ranges are not reported, since discordance with absolute values may lead to misinterpretation of CBC data. Current Interpretive Data was last revised on 2017. Imm gran pct 0.3 % [facility] Comment: Collection date/time has been modified to: 20:25:00. Previous collection date/time: 17:30:00. Interpretive Data Percent cell count reference ranges are not reported, since discordance with absolute values may lead to misinterpretation of CBC data. Current Interpretive Data was last revised on 2017. Lymphocyte pct 18.9 % [facility] Comment: Collection date/time has been modified to: 20:25:00. Previous collection date/time: 17:30:00. Interpretive Data Percent cell count reference ranges are not reported, since discordance with absolute values may lead to misinterpretation of CBC data. Current Interpretive Data was last revised on 2017. Monocyte pct 7.5 % [facility] Comment: Collection date/time has been modified to: 20:25:00. Previous collection date/time: 17:30:00. Interpretive Data Percent cell count reference ranges are not reported, since discordance with absolute values may lead to misinterpretation of CBC data. Current Interpretive Data was last revised on 2017. Eosinophil pct 0.4 % [facility] Comment: Collection date/time has been modified to: 20:25:00. Previous collection date/time: 17:30:00. Interpretive Data Percent cell count reference ranges are not reported, since discordance with absolute values may lead to misinterpretation of CBC data. Current Interpretive Data was last revised on 2017. Basophil pct 0.4 % [facility] Comment: Collection date/time has been modified to: 20:25:00. Previous collection date/time: 17:30:00. Interpretive Data Percent cell count reference ranges are not reported, since discordance with absolute values may lead to misinterpretation of CBC data. Current Interpretive Data was last revised on 2017. Blood 10/06/2024 8:25 PM HISTOLOGY AIDE 10/06/2024 9:03 PM HISTOLOGY AIDE Charanjit Zepeda MD PhD LAB BLOOD ORDERABLES Juan Pablo cahru Result - Final [facility] One [facility] [place] [address] * Respiratory pathogen panel Nasopharyngeal (10/06/2024 8:25 PM HISTOLOGY AIDE) Pathologist [facility] [place] Influenza A RNA Not Detected Not Detected Influenza B RNA Not Detected Not Detected [facility] RSV RNA Not Detected Not Detected [facility] COVID-19 RNA Not Detected Not Detected [facility] Coronavirus 229E RNA Not Detected Not Detected [facility] Coronavirus HKU1 RNA Not Detected Not Detected [facility] Coronavirus NL63 RNA Not Detected Not Detected [facility] Coronavirus OC43 RNA Not Detected Not Detected [facility] Adenovirus DNA Not Detected Not Detected [facility] Metapneumovirus RNA Not Detected Not Detected [facility] Rhinovirus/Enterov irus RNA Not Detected Not Detected [facility] Parainfluenza 1 RNA Not Detected Not Detected [facility] Parainfluenza 2 RNA Not Detected Not Detected [facility] Parainfluenza 3 RNA Not Detected Not Detected [facility] Parainfluenza 4 RNA Not Detected Not Detected [facility] B. pertussis DNA Not Detected Not Detected [facility] B. parapertussis DNA Not Detected Not Detected [facility] C. pneumoniae DNA Not Detected Not Detected [facility] M. pneumoniae DNA Not Detected Not Detected [facility] Nasopharyngeal 10/06/2024 8: 25 PM HISTOLOGY AIDE 10/06/2024 9:00 PM HISTOLOGY AIDE Narrative [facility] - 10/06/2024 10:49 PM HISTOLOGY AIDE Is the Patient experiencing symptoms consistent with COVID?->No Surveillance testing for transplant patient?->No Interpretive Data The [employer] FilmArray Respiratory Panel (RP2.1) assay is a multiplexed real-time PCR based nucleic acid test capable of simultaneous qualitative detection and identification of multiple respiratory viral and bacterial nucleic acids, including SARS Coronavirus 2 (the causative agent of COVID-19). The following bacteria, viruses and virus subtypes can be identified using the FilmArray RP2.1 assay: Bordetella pertussis, Bordetella parapertussis, Chlamydia pneumoniae, Mycoplasma pneumoniae, Adenovirus, SARS Coronavirus 2, seasonal coronaviruses (Coronavirus HKU1, Coronavirus NL63, Coronavirus 229E, and Coronavirus OC43), Influenza A, Influenza A subtype H1, Influenza A subtype H3, Influenza A subtype 2009 H1, Influenza B, Metapneumovirus, Parainfluenza 1, Parainfluenza 2, Parainfluenza 3, Parainfluenza 4, RSV, Rhinovirus/Enterovirus. Due to the genetic similarity between human Rhinovirus and Enterovirus, the FilmArray RP2.1 assay cannot reliably differentiate them. Coronavirus OC43 may cross-react with some isolates of Coronavirus HKU1. A dual positive result may be due to cross-reactivity or may indicate a co- infection. The detection and identification of specific viral and bacterial nucleic acids from individuals exhibiting signs and symptoms of a respiratory infection aids in the diagnosis of respiratory infection if used in conjunction with other clinical and epidemiological information. The results of this test should not be used as the sole basis for diagnosis, treatment, or other management decisions. Negative results in the setting of a respiratory illness may be due to infection with pathogens that are not detected by this test. Positive results do not rule out infection/co-infection with other organisms. The agent(s) detected by the FilmArray RP2.1 may not be the definite cause of disease. Additional testing (lab, imaging, etc.) may be necessary when evaluating a patient with possible respiratory tract infection. The FilmArray RP2.1 assay has FDA clearance for testing of SLEEP TECHNICIAN swabs. The performance of additional specimen types has been assessed by the performing laboratory. The performance characteristics of this assay have been determined by [facility] Infectious Disease [facility]. Current interpretive data was last revised on 22. us Migdalia Hampton MD LAB MICROBIOLOGY - GENERAL ORD ERABLES Final Result [facility] One [facility] [place] [address] * (ABNORMAL) CBC with auto differential (10/06/2024 8:25 PM HISTOLOGY AIDE) WBC 6.7 3.8 - 9.9 K/cumm Comment:Collection date/time has been modified to: 20:25:00. Previous collection date/time: 17:30:00. Hgb 16.3(H) 11.9 - 15.5 g/dL [facility] Comment:Collection date/time has been modified to: 20:25:00. Previous collection date/time: 17:30:00. Hct 48.5(H) 35.6 - 45.5 % [facility] Comment:Collection date/time has been modified to: 20:25:00. Previous collection date/time: 17:30:00. Plt 207 150 - 400 K/cumm [facility] Comment:Collection date/time has been modified to: 20:25:00. Previous collection date/time: 17:30:00. MPV 11.1 9.1 - 12.3 fL [facility] Comment:Collection date/time has been modified to: 20:25:00. Previous collection date/time: 17:30:00. RBC 5.75(H) 3.90 - 5.20 M/cumm [facility] Comment:Collection date/time has been modified to: 20:25:00. Previous collection date/time: 17:30:00. MCV 84.3 81.3 - 96.4 fL [facility] Comment:Collection date/time has been modified to: 20:25:00. Previous collection date/time: 17:30:00. MCH 28.3 27.1 - 33.3 pg [facility] Comment:Collection date/time has been modified to: 20:25:00. Previous collection date/time: 17:30:00. MCHC 33.6 32.3 - 35.7 g/dL [facility] Comment:Collection date/time has been modified to: 20:25:00. Previous collection date/time: 17:30:00. RDW CV 13.4 11.1 - 14.9 % [facility] Comment:Collection date/time has been modified to: 20:25:00. Previous collection date/time: 17:30:00. RDW SD 41.1 35.7 - 48.1 fL [facility] Comment:Collection date/time has been modified to: 20:25:00. Previous collection date/time: 17:30:00. NRBC abs 0.00 0.00 - 0.01 K/cumm [facility] Comment:Collection date/time has been modified to: 20:25:00. Previous collection date/time: 17:30:00. Blood 10/06/2024 8:25 PM HISTOLOGY AIDE 10/06/2024 9:03 PM HISTOLOGY AIDE us Charanjit Zepeda MD PhD LAB BLOOD ORDERABLES Juan Pablo charu Result - Final [facility] One [facility] [place] [address] * aPTT (10/06/2024 8:25 PM HISTOLOGY AIDE) aPTT 35 28 - 38 sec Comment: Collection date/time has been modified to: 20:25:00. Previous collection date/time: 17:30:00. Interpretive Data Heparin therapeutic range: 66.0 - 100.0 seconds. Range based on correlation with therapeutic heparin activity range of 0.3 - 0.7 Units/mL. Current interpretive data was last revised on 2023. Blood 10/06/2024 8:25 PM HISTOLOGY AIDE 10/06/2024 9:05 PM HISTOLOGY AIDE Charanjit Zepeda MD PhD LAB BLOOD ORDERABLES Juan Pablo charu Result - Final Performing Organization Address City/[facility] Co de Phone Number [facility] [place] [address] * Protime-INR (10/06/2024 8:25 PM HISTOLOGY AIDE) PT 10.6 9.7 - 13.0 sec Comment:Collection date/time has been modified to: 20:25:00. Previous collection date/time: 17:30:00. INR 0.98 0.90 - 1.20 [facility] Comment: Collection date/time has been modified to: 20:25:00. Previous collection date/time: 17:30:00. Interpretive data Oral anticoagulant therapeutic ranges: Venous thromboembolism prophylaxis or treatment: 2.0-3.0 CARDIOLOGY Standard range: 2.0-3.0 High-intensity range: 2.5-3.5 Refer to indication-specific guidelines for appropriate target ranges for prosthetic heart valve replacement. Current interpretive data was last revised on 2019. Blood 10/06/2024 8:25 PM HISTOLOGY AIDE 10/06/2024 9:05 PM HISTOLOGY AIDE Charanjit Zepeda MD PhD LAB BLOOD ORDERABLES Juan Pablo charu Result - Final Performing Organization Address City/[facility] Co de Phone Number [facility] [place] [address] * (ABNORMAL) Phosphorus (10/06/2024 8:25 PM HISTOLOGY AIDE) Phosphorus, pl 4.8(H) 2.3 - 4.5 mg/dL Blood 10/06/2024 8:25 PM HISTOLOGY AIDE 10/06/2024 8:59 PM HISTOLOGY AIDE Charanjit Zepeda MD PhD LAB BLOOD ORDERABLES Fin al Result Performing Organization Address [facility] Co de Phone Number [facility] [place] [address] * Magnesium (10/06/2024 8:25 PM HISTOLOGY AIDE) Pathologist [facility] [place] Magnesium 1.7 1.4 - 2.5 mg/dL Blood 10/06/2024 8:25 PM HISTOLOGY AIDE 10/06/2024 8:59 PM HISTOLOGY AIDE Result [facility] Charanjit Zepeda MD PhD LAB BLOOD ORDERABLES Fin al Result Performing Organization Address [facility] [place] [address] * (ABNORMAL) Hemoglobin A1c (10/06/2024 8:25 PM HISTOLOGY AIDE) Hgb A1C 9.1(H) 4.0 - 5.6 % Estimated Average Glucose 214 mg/dL [facility] Comment: The ADA recommends reporting an estimated Average Glucose (eAG) with all Hemoglobin A1c results using the equation derived from a study of 507 normal and diabetic adults. Minority populations were underrepresented and children were not included. (Diabetes Care 2020; 43(S1): S66-S76). The eAG is not equivalent to a fasting glucose. Blood 10/06/2024 8:25 PM HISTOLOGY AIDE 10/06/2024 9:03 PM HISTOLOGY AIDE Result [facility] Migdalia Hampton MD LAB BLOOD ORDERABLES Final Res ult Performing Organization Address [facility] Co de Phone Number [facility] [place] [address] * (ABNORMAL) Lipid panel (10/06/2024 8:25 PM HISTOLOGY AIDE) Cholesterol 271(H) 30 - 199 mg/dL Comment: Interpretive Data Ages < or = 19 years Acceptable: <170 mg/dL Borderline high: 170-199 mg/dL High: >or= 200 mg/dL Ages > or = 20 years Desirable: <200 mg/dL Borderline high: 200-239 mg/dL High: >or= 240 mg/dL Literature References: 1. Expert Panel on Integrated Guidelines for Cardiovascular Health and Risk Reduction in Children and Adolescents. Pediatrics 2011;128:S213 2. NCEP Expert Panel. Circulation 2004;110:227 Current Interpretive Data was last revised on 2018. Triglycerides 182(H) <=149 mg/dL [facility] Comment: Interpretive Data Ages < or = 9 years Acceptable: <75 mg/dL Borderline high: 75-99 mg/dL High: >or= 100 mg/dL Ages 10 to 20 years Acceptable: <90 mg/dL Borderline high: 90-129 mg/dL High: >or= 130 mg/dL Ages > or = 20 years Desirable: <150 mg/dL Borderline high: 150-199 mg/dL High: 200-499 mg/dL Very high: >or= 499 mg/dL Literature References: 1. Expert Panel on Integrated Guidelines for Cardiovascular Health and Risk Reduction in Children and Adolescents. Pediatrics 2011;128:S213 2. NCEP Expert Panel. Circulation 2004;110:227 Current Interpretive Data was last revised on 2018. HDL 57 >=40 mg/dL [facility] Comment: Interpretive Data Ages < or = 19 years Acceptable: >45 mg/dL Borderline low: 40-45 mg/dL Low: <40 mg/dL Ages > or = 20 years Desirable: >or= 60 mg/dL Low: <40 mg/dL Literature References: 1. Expert Panel on Integrated Guidelines for Cardiovascular Health and Risk Reduction in Children and Adolescents. Pediatrics 2011;128:S213 2. NCEP Expert Panel. Circulation 2004;110:227 Current Interpretive Data was last revised on 2018. LDL, calculated 180(H) <=129 mg/dL [facility] Comment: Interpretive Data Ages < or = 19 years Acceptable: <110 mg/dL Borderline high: 110-129 mg/dL High: >or= 130 mg/dL Ages > or = 20 years Optimal: <100 mg/dL Near optimal: 100-129 mg/dL Borderline high: 130-159 mg/dL High: >160 mg/dL Calculated using the Deuce LDL-C estimating equation. This equation was implemented on 2024. Prior to this date LDL-C was estimated using the Friedewald equation. Literature References: 1. Expert Panel on Integrated Guidelines for Cardiovascular Health and Risk Reduction in Children and Adolescents. Pediatrics 2011;128:S213 2. NCEP Expert Panel. Circulation 2004;110:227 3. Deuce Parham et al. MAYRA Cardiol. 2020 December 28;5(5):540-548. doi: 10.1001/[email or web address].2020.0013 Current Interpretive Data was last revised on 2024. Non-HDL Cholesterol 214 mg/dL [facility] Comment: Interpretive Data Ages < or = 19 years Acceptable: <120 mg/dL Borderline high: 120-144 mg/dL High: >145 mg/dL Ages > or = 20 years When triglycerides are >200 mg/dL, Non-HDL cholesterol is a secondary target of therapy with treatment goals that are 30 mg/dL greater than the LDL cholesterol target. Literature References: 1. Expert Panel on Integrated Guidelines for Cardiovascular Health and Risk Reduction in Children and Adolescents. Pediatrics 2011;128:S213 2. NCEP Expert Panel. Circulation 2004;110:227 Current Interpretive Data was last revised on 2018. Chol/HDL ratio 5 [facility] Blood 10/06/2024 8:25 PM HISTOLOGY AIDE 10/06/2024 8:59 PM HISTOLOGY AIDE us Migdalia Hampton MD LAB BLOOD ORDERABLES Final Res ult [facility] One [facility] [place] [address] * (ABNORMAL) Comprehensive metabolic panel (10/06/2024 8:25 PM HISTOLOGY AIDE) Sodium 141 135 - 145 mmol/L Potassium, pl 4.7 3.3 - 4.9 mmol/L [facility] Comment:Hemolyzed; Potassium value may be falsely elevated by as much as 0.3-0.5 mmol/L. Suggest redraw and reanalysis. Chloride 103 97 - 110 mmol/L [facility] CO2 26 22 - 32 mmol/L [facility] Anion gap 12 2 - 15 mmol/L [facility] BUN 19 6 - 25 mg/dL [facility] Creatinine 1.27(H) 0.60 - 1.10 mg/dL [facility] Glucose 209(H) 70 - 199 mg/dL [facility] Comment: Interpretive Data Fasting glucose >/= 126 mg/dl is diagnostic for diabetes. Fasting is defined as no caloric intake for at least 8 hours. Fasting glucose between 100 mg/dl to 125 mg/dl is diagnostic of prediabetes. In a patient with classic symptoms of hyperglycemia or hyperglycemic crisis, a random glucose >/= 200 mg/dl is diagnostic for diabetes. In the absence of unequivocal hyperglycemia, results should be confirmed by repeat testing. The classification and Diagnosis of Diabetes Diabetes Care 2021; 46: S19-S40. Current interpretive data was last revised 2022. Calcium 9.4 8.5 - 10.3 mg/dL [facility] Bilirubin, total 0.7 0.1 - 1.2 mg/dL [facility] Protein, pl 7.5 6.5 - 8.5 g/dL [facility] Albumin 3.9 3.5 - 5.0 g/dL [facility] Alk phos 110 40 - 130 Units/L [facility] ALT 18 7 - 45 Units/L [facility] AST 26 10 - 45 Units/L [facility] Comment:Hemolyzed; result ma y be falsely elevated Blood 10/06/2024 8:25 PM HISTOLOGY AIDE 10/06/2024 8:59 PM HISTOLOGY AIDE us Charanjit Zepeda MD PhD LAB BLOOD ORDERABLES Fin al Result [facility] One [facility] [place] [address] * POCT glucose (10/06/2024 7:32 PM HISTOLOGY AIDE) Glucose, POC 199 70 - 199 mg/dL Blood 10/06/2024 7:32 PM HISTOLOGY AIDE 10/06/2024 7:32 PM HISTOLOGY AIDE us Migdalia Hampton MD LAB POCT ORDERABLES - DEVICE F inal Result Performing Organization Address [facility] Phone Number [facility] [place] [address] * POCT glucose (10/06/2024 6:28 PM HISTOLOGY AIDE) Pathologist [facility] [place] Glucose, POC 130 70 - 199 mg/dL Blood 10/06/2024 6:28 PM HISTOLOGY AIDE 10/06/2024 6:28 PM HISTOLOGY AIDE us Migdalia Hampton MD LAB POCT ORDERABLES - DEVICE F inal Result Performing Organization Address [facility] Phone Number [facility] [place] [address] * (ABNORMAL) POCT glucose (10/06/2024 5:25 PM HISTOLOGY AIDE) [facility] Glucose, POC 67(L) 70 - 199 mg/dL Blood 10/06/2024 5:25 PM HISTOLOGY AIDE 10/06/2024 5:25 PM HISTOLOGY AIDE us Migdalia Hampton MD LAB POCT ORDERABLES - DEVICE F inal Result Performing Organization Address [facility] Phone Number [facility] [place] [address] * TRANSTHORACIC ECHO (TTE) COMPLETE W DOPPLER/CF W CONTRAST (10/06/2024 4:47 PM HISTOLOGY AIDE) [facility] LV EF % CONS SCIMAGE Anatomical Region Laterality Modality Ultrasound 10/06/2024 2:56 PM HISTOLOGY AIDE Narrative 10/06/2024 5:58 PM HISTOLOGY AIDE [facility] [place] [address] Transthoracic Echocardiographic Report Patient Name: MARLYS PHAN R : 1965 (58y 10m) Gender: F Study Date: 10/06/2024 14:56:22 Ht(Inch): 60 Wt(Lb): 173.06 BSA: 1.82 [employer] Supervisor: Agustín Kaye RDCS Location: [id number] Order Provider: CHARANJIT ZEPEDA Heart Rate: 65 BMI: 33.79 BP: 134 / 64 Quality: The study images were of technically good quality. Ref Provider: CHARANJIT ZEPEDA PROCEDURES: Echocardiographic Report: [id number]) Transthoracic complete echo with strain imaging and contrast, 2D, spectral and tissue Doppler, color flow Doppler, M-mode. Contrast: Contrast Enhancement was Employed: After initial imaging due to sub- optimal quality related to co-morbidity defined by patient's body habitus. 0.4 ml Optison Administered, (2.6 ml wasted). 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 FINDINGS: Left Ventricle: Normal left ventricular size based on volume index. Concentric LV remodeling. Normal left ventricular systolic function. The Ejection Fraction (Alas's) is measured at 63 %. The average global longitudinal strain rate is abnormal. The LV global strain is: -9.7 %. Right Ventricle: Normal right ventricular size. The average right ventricular strain rate is abnormal. Left Atrium: The left atrium is normal in size. Calculations for the left atrial volume index are within the normal range but the left atrium appears at least moderately dilated. Right Atrium: The right atrium is normal in size. Mitral Valve: There is severe mitral insufficiency with the regurgitant jet being somewhat eccentric and coursing along the interatrial septum. Moderate mitral stenosis. No pressure half-time measured but mean gradient is increased as well as the estimated PA pressure. The mean transmitral gradient is: 5.62 mmHg. The mitral valve apparatus is an extremely complex in appearance. There appears to be some mitral annular calcification. Both mitral leaflets are significantly thickened and there is some restriction to opening. However, the valve appears to open sufficiently to exclude critical mitral stenosis. Aortic Valve: No aortic valve stenosis. The mean transaortic gradient is 5.92 mmHg. The aortic valve area by the continuity equation (using VTI) is 1.4 cm2. Tricuspid Valve: The tricuspid valve demonstrates normal leaflet structure. Estimated pulmonary artery systolic pressure is consistent with moderate pulmonary hypertension (45-60mmHg). There was at least fbxd-[id number]-wwhrbukl tricuspid insufficiency with an eccentric jet that courses along the interatrial septum. Pulmonic Valve: There is mild pulmonic regurgitation. Pericardium: Images of the pericardium were difficult but there appeared to be significant thickening and possible calcification of the pericardium over the right ventricular free wall. There also appears to be some areas of calcification along the lateral left ventricular wall. There was no pericardial effusion. Aorta: The aortic root is normal in size. The aortic root is normal in size when indexed. The ascending aorta is normal in size when indexed. CONCLUSIONS: 1. Concentric LV remodeling. Normal left ventricular systolic function. The Ejection Fraction (Alas's) is measured at 63 %. The average global longitudinal strain rate is abnormal. 2. Normal right ventricular size. 3. Likely moderate mitral stenosis with severe mitral insufficiency. 4. Jluu-uj-pmiivysd tricuspid insufficiency with moderately increased estimated pulmonary artery systolic pressure. 5. Left atrial dilatation. 6. No pericardial effusion but thickening with suggestion of mild calcification as described above. MEASUREMENTS: 2D/MM Value Range Doppler Value Range LVIDd 2D 4.28 cm [ 3.80 - 5.20 ] AV Peak Kannan 1.68 m/s [ 1.00 - 1.70 ] LVIDs 2D 2.82 cm [ 2.20 - 3.50 ] AV Peak PG 11.29 IVSd 2D 1.02 cm [ 0.60 - 0.90 ] AV Mean PG 5.92 mmHg LVPWd 2D 0.97 cm [ 0.60 - 0.90 ] AV VTI 36.19 cm LV Thickness Ratio 1.05 [ 1.50 - 3.00 ] LVOT Peak Kannan 1.49 m/s [ 0.70 - 1.10 ] LV FS 2D 34.07 % [ 27.00 - 45.00 ] LVOT Peak PG 8.88 LV Mass 2D 142.96 g LVOT Mean PG 4.72 mmHg LV Mass Index 2D 78.55 g/m2 LVOT VTI 28.26 cm RWT 0.45 LVOT Diam 1.51 cm EDV Mod BP 62.05 ml [ 46.00 - 106.00 ] CARLITOS VTI 1.40 cm2 LV EDV Index 34.09 ml/m2 LVOT/AV VTI 0.78 - Dimensionless index (DVI) ESV Mod BP 22.98 ml [ 14.00 - 42.00 ] MV E Peak Kannan 1.76 m/s [ 0.60 - 1.30 ] EF Mod BP 63 % [ 54 - 74 ] MV A Peak Kannan 1.30 m/s [ 1.00 - 1.20 ] LV GLS -9.7 % [ -18.0 - -16.0 ] MV E/A 1.36 ratio [ 0.80 - 1.50 ] LA Length 2C 5.40 cm MV Peak Kannan 2.05 m/s LA Length 4C 5.17 cm MV Peak PG 16.81 LA Volume BP 36.42 ml MV Mean PG 5.62 mmHg LA Volume Index 20.01 ml/m2 [ 16.00 - 34.00 ] MV VTI 61.86 cm RV Base Dimen 2D 2.7 cm [ 2.5 - 4.2 ] MV Decel Time 368.69 msec [ 104.00 - 258.00 ] RA Volume 23.62 ml Med E` Kannan 3.78 cm/sec [ 8.00 - 15.00 ] RA Volume Index 12.98 ml/m2 Lat E` Kannan 7.32 cm/sec [ 10.00 - 15.00 ] AoR Diam 2D 3.14 cm [ 2.70 - 3.70 ] Average E/E` 31.71 Ao Root Index 1.73 cm/m2 [ 1.00 - 2.00 ] MR Peak Kannan 6.06 m/s Asc Ao Diam 2D 2.86 cm MR Peak PG 146.89 Asc Ao Index 1.57 cm/m2 MV Alias Kannan 0.31 m/s MR VTI 208.3 cm MR Flow 0.95 ml/sec MR PISA 0.7 cm MR EROA 0.2 cm2 PISA Regurgitant Volume 41.7 ml RV S` 6.01 cm/sec TR Peak Kannan 3.69 m/s [ 1.00 - 2.80 ] TR Peak PG 54.5 - ATTESTATION: I have reviewed and interpreted the pertinent images and measurements of this study. I attest to the conclusions in the final report that is provided above. DISCLAIMER: The study images and the final report will be retained in the patient chart by the Echo Laboratory for the legally required time period. This chart constitutes the legal record of any testing performed. Electronically Signed By: Jeromy Sanchez MD 10/06/2024 17:58:00 HISTOLOGY AIDE Electronically Signed By: Jeromy Sanchez MD 10/06/2024 17:58:00 HISTOLOGY AIDE CC: Charanjit Zepeda M.D. Procedure Note Jeromy Sanchez MD - 10/06/2024 [facility] [place] [address] Transthoracic Echocardiographic Report Patient Name: MARLYS PHAN R : 1965 (58y 10m) Gender: F Study Date: 10/06/2024 14:56:22 Ht(Inch): 60 Wt(Lb): 173.06 BSA: 1.82 [employer] Supervisor: Agustín Kaye RDCS Location: [id number] Order Provider:CHARANJIT ZEPEDA Heart Rate: 65 BMI: 33.79 BP: 134 / 64 Quality: The study images were oftechnically good quality. Ref Provider: CHARANJIT ZEPEDA PROCEDURES: Echocardiographic Report: ([id number], [id number]) Transthoracic complete echo withstrain imaging and contrast, 2D, spectral and tissue Doppler, color flow Doppler,M-mode. Contrast: Contrast Enhancement was Employed: After initial imaging due tosub- optimal quality related to co-morbidity defined by patient's body habitus. 0.4 mlOptison Administered, (2.6 ml wasted). 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 FINDINGS: Left Ventricle: Normal left ventricular size based on volume index.Concentric LV remodeling. Normal left ventricular systolic function. The EjectionFraction (Alas's) is measured at 63 %. The average global longitudinal strain rate isabnormal. The LV global strain is: -9.7 %. Right Ventricle: Normal right ventricular size. The average rightventricular strain rate is abnormal. Left Atrium: The left atrium is normal in size. Calculations for the leftatrial volume index are within the normal range but the left atrium appears at leastmoderately dilated. Right Atrium: The right atrium is normal in size. Mitral Valve: There is severe mitral insufficiency with the regurgitantjet being somewhat eccentric and coursing along the interatrial septum. Moderatemitral stenosis. No pressure half-time measured but mean gradient is increased as well asthe estimated PA pressure. The mean transmitral gradient is: 5.62 mmHg. The mitral valveapparatus is an extremely complex in appearance. There appears to be some mitral annularcalcification. Both mitral leaflets are significantly thickened and there is somerestriction to opening. However, the valve appears to open sufficiently to excludecritical mitral stenosis. Aortic Valve: No aortic valve stenosis. The mean transaortic gradient is5.92 mmHg. The aortic valve area by the continuity equation (using VTI) is 1.4 cm2. Tricuspid Valve: The tricuspid valve demonstrates normal leafletstructure. Estimated pulmonary artery systolic pressure is consistent with moderate pulmonaryhypertension (45-60mmHg). There was at least dnhf-vk-vybfctpo tricuspid insufficiencywith an eccentric jet that courses along the interatrial septum. Pulmonic Valve: There is mild pulmonic regurgitation. Pericardium: Images of the pericardium were difficult but there appearedto be significant thickening and possible calcification of the pericardium overthe right ventricular free wall. There also appears to be some areas ofcalcification along the lateral left ventricular wall. There was no pericardial effusion. Aorta: The aortic root is normal in size. The aortic root is normal insize when indexed. The ascending aorta is normal in size when indexed. CONCLUSIONS: 1. Concentric LV remodeling. Normal left ventricular systolic function.The Ejection Fraction (Alas's) is measured at 63 %. The average global longitudinalstrain rate is abnormal. 2. Normal right ventricular size. 3. Likely moderate mitral stenosis with severe mitral insufficiency. 4. Umgq-eo-zlnucneu tricuspid insufficiency with moderately increasedestimated pulmonary artery systolic pressure. 5. Left atrial dilatation. 6. No pericardial effusion but thickening with suggestion of mildcalcification as described above. MEASUREMENTS: 2D/MM Value Range DopplerValue Range LVIDd 2D 4.28 cm [ 3.80 - 5.20 ] AV Peak Vel1.68 m/s [ 1.00 - 1.70 ] LVIDs 2D 2.82 cm [ 2.20 - 3.50 ] AV Peak PG11.29 IVSd 2D 1.02 cm [ 0.60 - 0.90 ] AV Mean PG5.92 mmHg LVPWd 2D 0.97 cm [ 0.60 - 0.90 ] AV VTI36.19 cm LV Thickness Ratio 1.05 [ 1.50 - 3.00 ] LVOT Peak Vel1.49 m/s [ 0.70 - 1.10 ] LV FS 2D 34.07 % [ 27.00 - 45.00 ] LVOT Peak PG8.88 LV Mass 2D 142.96 g LVOT Mean PG4.72 mmHg LV Mass Index 2D 78.55 g/m2 LVOT VTI28.26 cm RWT 0.45 LVOT Diam1.51 cm EDV Mod BP 62.05 ml [ 46.00 - 106.00 ] CARLITOS VTI1.40 cm2 LV EDV Index 34.09 ml/m2 LVOT/AV VTI0.78 - Dimensionless index (DVI) ESV Mod BP 22.98 ml [ 14.00 - 42.00 ] MV E Peak Vel1.76 m/s [ 0.60 - 1.30 ] EF Mod BP 63 % [ 54 - 74 ] MV A Peak Vel1.30 m/s [ 1.00 - 1.20 ] LV GLS -9.7 % [ -18.0 - -16.0 ] MV E/A1.36 ratio [ 0.80 - 1.50 ] LA Length 2C 5.40 cm MV Peak Vel2.05 m/s LA Length 4C 5.17 cm MV Peak PG16.81 LA Volume BP 36.42 ml MV Mean PG5.62 mmHg LA Volume Index 20.01 ml/m2 [ 16.00 - 34.00 ] MV VTI61.86 cm RV Base Dimen 2D 2.7 cm [ 2.5 - 4.2 ] MV Decel Zgjs348.69 msec [ 104.00 - 258.00 ] RA Volume 23.62 ml Med E` Vel3.78 cm/sec [ 8.00 - 15.00 ] RA Volume Index 12.98 ml/m2 Lat E` Vel7.32 cm/sec [ 10.00 - 15.00 ] AoR Diam 2D 3.14 cm [ 2.70 - 3.70 ] Average E/E`31.71 Ao Root Index 1.73 cm/m2 [ 1.00 - 2.00 ] MR Peak Vel6.06 m/s Asc Ao Diam 2D 2.86 cm MR Peak PG146.89 Asc Ao Index 1.57 cm/m2 MV Alias Vel0.31 m/s MR VTI 208.3 cm MR Flow 0.95 ml/sec MR PISA 0.7 cm MR EROA 0.2 cm2 PISA Regurgitant Volume 41.7 ml RV S` 6.01 cm/sec TR Peak Kannan 3.69 m/s [ 1.00 -2.80 ] TR Peak PG 54.5 - ATTESTATION: I have reviewed and interpreted the pertinent images and measurements ofthis study. I attest to the conclusions in the final report that is provided above. DISCLAIMER: The study images and the final report will be retained in the patientchart by the Echo Laboratory for the legally required time period. This chart constitutesthe legal record of any testing performed. Electronically Signed By: Jeromy Sanchez MD 10/06/2024 17:58:00 HISTOLOGY AIDE Electronically Signed By: Jeromy Sanchez MD 10/06/2024 17:58:00 HISTOLOGY AIDE CC: Charanjit Zepeda M.D. us Charanjit Zepeda MD PhD CV ECHO PROCEDURES Final Result * XR Chest PA Lateral 2 Views (10/06/2024 2:48 PM HISTOLOGY AIDE) Anatomical Region Laterality Modality Body, Chest N/A Computed Radiogr aphy 10/06/2024 3:07 PM HISTOLOGY AIDE Impressions 10/06/2024 4:48 PM HISTOLOGY AIDE Comparison is made to chest radiograph of 04/01/2010. Median sternotomy wires are intact and aligned. Epicardial pacemaker leads overlie the heart. Lungs are clear with no pulmonary edema or consolidation. No pleural effusion or pneumothorax. Cardiomediastinal silhouette is mildly enlarged, but unchanged. Dictated by: Ibrahima Sellers M.D. The radiology attending physician has personally reviewed this study, and had reviewed and/or edited this written report and agrees with it. Electronically signed by: Charanjit Mary MD, PHD Narrative 10/06/2024 4:48 PM HISTOLOGY AIDE EXAMINATION: 2 view chest radiograph Procedure Note Charanjit Mary MD PhD - 10/06/2024 EXAMINATION: 2 view chest radiograph IMPRESSION: Comparison is made to chest radiograph of 04/01/2010. Median sternotomy wires are intact and aligned. Epicardial pacemaker leads overlie the heart. Lungs are clear with no pulmonary edema or consolidation. No pleural effusion or pneumothorax. Cardiomediastinal silhouette is mildly enlarged, but unchanged. Dictated by: Ibrahima Sellers M.D. The radiology attending physician has personally reviewed this study, and had reviewed and/or edited this written report and agrees with it. Electronically signed by: Charanjit Mary MD, PHD us Charanjit Zepeda MD PhD IMG XR PROCEDURES Final Result * ECG 12 lead (10/06/2024 10:30 AM HISTOLOGY AIDE) Migdalia Hampton MD ECG ORDERABLES Final Result * DEVICE CHECK - IN OFFICE (10/06/2024 9:58 AM HISTOLOGY AIDE) Anatomical Region Laterality Modality Other 10/06/2024 2:00 AM HISTOLOGY AIDE Narrative 10/11/2024 11:09 AM HISTOLOGY AIDE Interpretation Summary: Procedure Note Migdalia Hampton MD - 10/11/2024 Interpretation Summary: Migdalia Hampton MD CV CARDIAC SERVICES PROCEDURES Final Result * Screening Mammogram Bilateral W Juan Carlos (09/29/2017 12:59 PM HISTOLOGY AIDE) Anatomical Region Laterality Modality Breast Bilateral Mammography 09/29/2017 12:5 9 PM HISTOLOGY AIDE Impressions 09/29/2017 2:36 PM HISTOLOGY AIDE BI-RAD 1 NEGATIVE There is no mammographic evidence of malignancy. A 1 year screening mammogram is recommended. The patient has been or will be contacted. The patient will be entered into a reminder system with a target due date of 1 year for her next screening exam. Electronically signed by: Dr. Matt Beckett M.D. nh/:09/29/2017 14:34:50 President And Chief Executive Officer: Jaqueline WHITE)(D[place]), [facility] letter sent: Normal Exam Reading location: BI-RADS: 1 Negative [EOD] Narrative 09/29/2017 2:36 PM HISTOLOGY AIDE - MG BILATERAL DIGITAL SCREENING MAMMOGRAM 3D/2D WITH MEDIOLATERAL OBLIQUE CRANIOCAUDAL: 09/29/2017 The study was acquired using full field digital technology and interpreted from soft copy. 2D digital mammographic views, as well as 3D digital tomosynthesis were performed in the CC and MLO projections. CLINICAL: Routine mammogram. Denies any problems today. No personal history of breast cancer. No family history of breast cancer. COMPARISONS: Comparison is made to exam dated: 03/05/2010 - [facility]. BREAST TISSUE: There are scattered areas of fibroglandular density. FINDINGS: Insufficient posterior tissue was included in both breasts, due to patient's physical condition. No significant masses, calcifications, or other findings are seen in either breast. There has been no significant interval change. Procedure Note Provider, MD [place] - 01/13/2021 - MG BILATERAL DIGITAL SCREENING MAMMOGRAM 3D/2D WITH MEDIOLATERAL OBLIQUE CRANIOCAUDAL: 09/29/2017 The study was acquired using full field digital technology and interpretedfrom soft copy. 2D digital mammographic views, as well as 3D digital tomosynthesis were performed in the CC and MLO projections. CLINICAL: Routine mammogram. Denies any problems today. No personalhistory of breast cancer. No family history of breast cancer. COMPARISONS: Comparison is made to exam dated: 03/05/2010 - [facility]. BREAST TISSUE: There are scattered areas of fibroglandular density. FINDINGS: Insufficient posterior tissue was included in both breasts, due to patient's physical condition. No significant masses, calcifications, or other findings are seen ineither breast. There has been no significant interval change. IMPRESSION: BI-RAD 1 NEGATIVE There is no mammographic evidence of malignancy. A 1 year screeningmammogram is recommended. The patient has been or will be contacted. The patient will be entered into a reminder system with a target due dateof 1 year for her next screening exam. Electronically signed by: Dr. Matt Beckett M.D. nh/:09/29/2017 14:34:50 President And Chief Executive Officer: Jaqueline WHITE)(M), [facility] letter sent: Normal Exam Reading location: BI-RADS: 1 Negative [EOD] Timothy Fierro MD IMG MAMMO PROCEDURES Final Result from Last 3 Months or Most Recently Relevant to Health Maintenance Additional Health Concerns Active Problems Noted Date Diagnosed Date Initial Follow-Up Appointment 10/11/[address] [place] [address] [facility] Advance Directives For more information, please contact: [phone] * Full Code (Latest Code Status on File) Date Activated Date Inactivated Comments 10/06/2024 1:31 PM 10/10/2024 7:57 PM Care Teams Career Coordinator Relationship Specialty Start Date End Date Bessie Mora NP [address] [place] [address] PCP - General Family Medicine 10/10/24 Kristy Campos, ANN [address] [facility] ([facility] [place]) Mailstop [phone] [place] [address] [facility] Outpatient Decaler 10/11/24
--- OUTSIDE RECORDS SUMMARY | 2024-10-22 00:43 | XMS_ITS | Clinical Summary ---
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 Gender Identity Not on file Sexual Orientation Not on file Plan of Treatment Health Maintenance Due Date Last Done Comments Hepatitis C Virus (HCV) Screening 1965 TdaP Immunization 1965 Pap Smear 12/02/1984 Cervical Cancer Screening (CCS) 12/02/1993 HPV/Cotest 12/02/1993 Colonoscopy 12/02/2008 Colorectal Cancer Screening 12/02/2008 Cologuard 12/02/2013 Immunochemical Fecal Occult Blood 12/02/2013 Mammogram 12/02/2013 Pneumococcal Immunization (5 0+ years) (1 of 1 - PCV) 12/02/2013 Zoster Immunization (1 of 2) 12/02/2013 Influenza Immunization (#1) 04/30/20242 11/2018, 06/29/2018 SARS-COV-2 Immunization ( - 2023-25 season) 2024 Respiratory Syncytial Virus (RSV) Immunization (Adult) (1 - 1-dose 75+ series) 12/02/2038 Hepatitis B Immunization Aged Out No longer eligible based on patient's age to complete this topic Meningococcal Immunization (ACWY) Aged Out No longer eligible b ased on patient's age to complete this topic Pneumococcal Immunization Combined Aged Out No longer eligible b ased on patient's age to complete this topic Rotavirus Immunization Aged Out No lo nger eligible based on patient's age to complete this topic
--- OUTSIDE RECORDS SUMMARY | 2024-10-22 00:43 | XMS_ITS | Encounter Summary ---
Author Organization [facility] Address [address] [place] [address] Phone Care Team Providers Care Allergy Physician Name Role Phone Bessie Mora NP Primary Care Provider Kristy Campos PHYSICAL THERAPIST CENTER MANAGER Unavailable [phone] Encounter Details Date Type Department Care Team (Late st Contact Info) Description 10/11/2024 Telephone [facility] Cardiology [address] [facility] Advanced Medicine 8th [place] [address] [place] [address] Roc Dumont MD [address] [facility] [address] [place], [place] [id number] Social History Tobacco Use Types Packs/Day Years [...] on file 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 Pt req a return call to discuss rescheduling her appt. OR NET SOFTWARE ENGINEER * Telephone Encounter - Khanh Anaya - 10/11/2024 11:55 AM CST Pt is called and describes steri strips at the incision site and is aware not to remove those. Pt also says she has a pressure dressing at her groin and she is made aware that can carefully be removed and if there is a bandaid there to leave it. Pt agrees with plan. Pt is given other post-op instructions. Pt states she feels great with her new PM. Pt saw at an IOV and PM was admitted forlow battery and new PM implanted by . OR NET SOFTWARE ENGINEER * Telephone Encounter - Destiny Guerrier - 10/11/2024 11:15 AM CST Tim Patient would like a return call regarding dressing on her wound from procedure. She can be reachedat [phone]. OR NET SOFTWARE ENGINEER documented in this encounter Plan of Treatment Not on file documented as of this encounter Goals Goal Patient Goal Type Associated Problems Recent Progress Patient-Stated? Author Patient will have kept initial appointment and will show signs of improvement to baseline Care Plan Initial Follow-Up Appointment No Kristy Campos LCSW Note: Pt has PCP appt on 10/19. documented as of this encounter Visit Diagnoses Not on filedocumented in this encounter Additional Health Concerns Active Problems Noted Date Diagnosed Date Initial Follow-Up Appointment 10/11/2024 documented as of this encounter Care Teams Allergy Physician Relationship Specialty Start Date End Date Bessie Mora NP [address] [place] [address] PCP - General Family Medicine 10/10/24 Kristy Campos LCSW [address] [facility] ([facility] [place] [place] Mailstop [phone] [place] [address] [facility] Outpatient Computer Technology Instructor 10/11/24 documented as of this encounter
--- OUTSIDE RECORDS SUMMARY | 2024-10-22 00:43 | XMS_ITS | Encounter Summary ---
Author Organization [facility] Facility Care Team Providers Care Fabric Pattern Grader Name Role Phone Charity Vela NP Primary Care Provide r Bessie Mora NP Primary Care Provider Kristy Campos Yaquelin ADULT BASIC STUDIES TEACHER Unavailable [phone] Encounter Details Date Type Department Care Team (Latest Contact Info) Description 12/01/2012 Orders Only [facility]INCON[facility] ProviderD[place] MD [address] [place] [id number] Social History Tobacco Use Types Packs/Day Years Used Date Smoking Tobacco: Never Assessed Comments Unknown Sex and Gender Information Value Date Recorded Sex Assigned at Not on file Legal Sex Female 6:46 AM SOFTWARE SUPPORT ENGINEER Gender Identity Not on file Sexual Orientation Not on file documented as of this encounter Plan of Treatment Not on file documented as of this encounter Procedures Procedure Name Priority Date/Time Associated Diagnosis Comments CARDIOLOGY REPORT 12/01/2012 12: 00 AM CDT documented in this encounter Results * CARDIOLOGY REPORT (12/01/2012 12:00 AM CDT) Anatomical Region Laterality Modality Other Narrative 12/01/2012 12:00 AM CDT Ordered by an unspecified provider. Historical Provider [facility] Final Result documented in this encounter Visit Diagnoses Not on filedocumented in this encounter Care Teams Fabric Pattern Grader Relationship Specialty Start Date End Date Charity Vela NP PCP - General Nurse Practitioner 05/09/21 10/09/24 Bessie Mora NP [address] [place] [address] PCP - General Family Medicine 10/10/24 Kristy Campos, ADULT BASIC STUDIES TEACHER [id number] [facility] ([facility] Mailstop [phone] [place] [address] SHOP Outpatient Server Assistant 10/11/24 documented as of this encounter
--- OUTSIDE RECORDS SUMMARY | 2024-10-22 00:43 | XMS_ITS | Clinical Summary ---
Author Organization [facility] [address] Address [address] [place] [address] Care Team Providers Care Hydro Pneumatic Tester Name Role Phone Bessie Mora NP Primary Care Provider Kristy Campos BIG 6 DEALER Unavailable Allergies No known active allergies Medications aspirin [...] needed for pain 30 tablet 5 11/10/19 Active glimepiride (AMARYL) 4 mg tablet Take [...] valve insufficiency 01/02/2010 Atrial septal defect 01/02/2010 Encounters Date Type Department Care Team Description 10/18/2024 SHOP/CHAP Subsequent Outreach [facility] OP CASE MANAGEMENT [address] [place] [address] Kristy Campos LCSW 10/17/2024 SHOP/CHAP Subsequent Outreach [facility] OP CASE MANAGEMENT [address] [place] [address] Kristy Campos LCSW 10/11/2024 SHOP/CHAP Initial Outreach [facility] OP CASE MANAGEMENT [address] [place] [address] Kristy Campos, ANN 10/11/2024 Telephone [facility] Cardiology [address] [place] [address] 8th [place] [address] [place] [address] Roc Dumont MD 10/11/2024 SHOP/CHAP Initial Eligibility Review [facility] OP CASE MANAGEMENT [address] [place] [address] Kristy Campos, ANN 10/09/2024 10:32 AM MARKETING PLANNER Anesthesia Event [facility] Electrophysiology Lab 1 [place] [address] Sheridan Berry MD Mallette, Allison Anne, NP 10/09/2024 10:00 AM MARKETING PLANNER - 10/09/2024 12:20 PM MARKETING PLANNER Surgery [facility] Electrophysiology Lab 1 [place] [address] Roc Dumont MD REMOVE/REPLACE PACEMAKER (PPM) DUAL LEAD SYSTEM [id number] 10/09/2024 Orders Only [facility] Cardiology [address] [place] [address] [place] [address] [place] [phone] iL Nails NP Fitting or adjustment of cardiac pacemaker (Primary Dx) 10/06/2024 1:12 PM MARKETING PLANNER - 10/10/2024 3:57 PM MARKETING PLANNER Hospital Encounter [address] [address] Migdalia Hampton MD Lanza, Gregory M., MD PhD Pacemaker battery depletion (Primary Dx) Discharge Disposition: Discharge to home or self care 10/06/2024 11:00 AM MARKETING PLANNER Office Visit [facility] Cardiology [address] [place] [address] [place] [phone] Migdalia Hampton MD Presence of cardiac pacemaker (Primary Dx); Complete atrioventricular block (CMS/HCC) (HCC); Pacemaker battery depletion 10/06/2024 10:30 AM MARKETING PLANNER Ancillary Procedure [facility]iology [address] [place] [address] [place] [phone] Complete atrioventricular block (CMS/HCC) (HCC) (Primary Dx); Presence of cardiac pacemaker; Encounter for interrogation of cardiac pacemaker 08/14/2024 Telephone [facility] Cardiology [address] [facility] Medicine 8th [place] [address] [place] [phone] Migdalia Hampton MD 08/07/2024 Telephone [facility] Cardiology [address] [facility] 8th [place] [address] [place] [phone] Afshan Kingsley from Last 3 Months Surgical History Surgery Date Site/Laterality Comments A-V CARDIAC PACEMAKER INSERTION 08/30/2004 - 08/29/2005 Epicardial DC-PPM - Medtronic ASD REPAIR, OSTIUM PRIMUM 08/30/2004 - 08/29/2005 cleft mitral valve, primum asd, severe TR [place] [address] Izaguirre. SECTION CARDIAC ELECTROPHYSIOLOGY PROCEDURE 10/09/2024 N/A Procedure: REMOVE/REPLACE PACEMAKER (PPM) DUAL LEAD SYSTEM [id number]; Surgeon: Roc Dumont MD; Location: [facility] EP LAB; Service: Cardiovascular; Laterality: N/A; Medical devices from this surgery are in the Medical Devices section. Medical History Medical History Date Comments Complete heart block (CMS/HCC) (HCC) Hypertension CAD (coronary artery disease) GERD (gastroesophageal reflux disease) DM2 (diabetes mellitus, type 2) (HCC) ASD (atrial septal defect), primum Congenital cleft leaflet of mitral valve Family History Medical History Relation Name Comments Hypertension Father Hyperlipidemia Mother Peripheral vascular disease Mother Diabetes type II Paternal Grandmother Hyperlipidemia Paternal Grandmother Hypertension Paternal Grandmother Diabetes type II Sister Relation Name Status Comments Father Mother Paternal Grandmother Sister Social History Tobacco Use Types Packs/Day Years [...] on file Legal Sex Female 6:46 AM MARKETING PLANNER Gender Identity Not on file Sexual Orientation Not on file Obstetrics History Para Term AB IAB SAB Ectopic Multiple Livin g Live Births 1 1 1 0 0 1 Date Outcome GA Total Labor Labor/2nd/3rd Weight Sex Type Anes PTL Janessa A1 A5 Name Clin Term Last Filed Vital Signs Vital Sign Reading Time Taken Comments Blood Pressure 149/81 10/10/2024 3:08 PM MARKETING PLANNER Pulse 82 10/10/2024 3:08 PM MARKETING PLANNER Temperature 36.7 C (98.1 F) 10/10/2024 3:08 PM MARKETING PLANNER Respiratory Rate 18 10/10/2024 3:08 PM MARKETING PLANNER Oxygen Saturation 92% 10/10/2024 3:08 PM MARKETING PLANNER Inhaled Oxygen Concentration - - Weight 76.7 kg (169 lb) 10/10/2024 12:10 AM MARKETING PLANNER Height 152.4 cm (5') 10/06/2024 1:13 PM MARKETING PLANNER Body Mass Index 33.01 10/06/2024 1:13 PM MARKETING PLANNER Plan of Treatment Health Maintenance Due Date Last Done Comments Albumin Creatinine Ratio, Urine 1963 Cervical Cancer Screening 1963 Colon Cancer Screening-Colonoscopy 1963 Depression Screening 1963 Hepatitis C Screening 1963 Dilated Eye Exam 1963 Foot Exam 1963 DTaP/Tdap/Td Vaccine (1 - Tdap) 12/02/1974 Hepatitis B Screening 12/02/1981 Regular Well Visit/Exam 18-64 12/02/1981 Zoster Vaccine (1 of 2) 12/02/2013 Breast Cancer Screening-Mammogram 09/29/2018 018 Pneumococcal vaccine <65 (2 of 2 - PCV) 07/22/2022 07/22/2021 Covid-19 Vaccine (3 - 2023-2 5 season) 2024 09/10/2021, 11/04/2020 Influenza Vaccine (#1) 2024 , 05/22/2021, 08/04/2020, Additional history exists Hemoglobin A1C 04/05/2025 10/06/2024, 11/05/2012 Lipid Panel 10/06/2025 10/06/2024, 040 12/2012, 11/05/2012, Additional history exists eGFR 10/09/2025 10/09/2024, 0 04/2025, 10/07/2024, Additional history exists Goals Goal Patient Goal Type Associated Problems Recent Progress Patient-Stated? Author Patient will have kept initial appointment and will show signs of improvement to baseline Care Plan Initial Follow-Up Appointment Kristy Purcell, ANN Note: Pt has PCP appt on 10/19. Medical Devices Implanted Type Area Wood Coater Device Identifier Shelf Expiration Date Model / Serial / Lot Medtronic Inc Tyrx Absorbable Antibacterial Envelope Med 2.7x2.5in [id number] - [id number] Implanted:Qty: 1 on 10/09/2024 by Roc Dumont MD at [facility] Other - see comments Medtronic Inc 07/07/2025 [id number] / / [id number] Description:Tyrx envelope Medtronic Inc [place] S Mri Surescan 50.8x46.6mm 2 Chamber 7.4mm Pacemaker 22.5gm [id number] - [id number] - [id number] Implanted:Qty: 1 on 10/09/2024 by Roc Dumont MD at [facility] Pacemaker Medtronic Inc 11/10/2025 [id number] / [id number] / [employer] Device Vascular Closure Femoral Artery Bioabsorbable Dual Method Vascade 6-7fr Collagen [id number] - [id number] Implanted:Qty: 1 on 10/09/2024 by Roc Dumont MD at [facility] Vascular Closure Device [employer] 06/15/2026 [id number] / / [id number] Procedures Procedure Name Priority Date/Time Associated Diagnosis Comments POCT GLUCOSE DEVICE Routine 10/10/2024 1 1:22 AM MARKETING PLANNER POCT GLUCOSE DEVICE Routine 10/10/2024 7 :56 AM MARKETING PLANNER EGFR Routine 10/09/2024 8:39 PM MARKETING PLANNER DIFFERENTIAL AUTO Routine 10/09/2024 8:3 9 PM MARKETING PLANNER PHOSPHORUS Routine 10/09/2024 8:39 PM MARKETING PLANNER MAGNESIUM Routine 10/09/2024 8:39 PM MARKETING PLANNER CBC WITH AUTO DIFFERENTIAL Routine 10/09/2024 8:39 PM MARKETING PLANNER BASIC METABOLIC PANEL Routine 10/09/2024 8:39 PM MARKETING PLANNER TYPE AND SCREEN Timed 10/09/2024 8:39 PM MARKETING PLANNER POCT GLUCOSE DEVICE Routine 10/09/2024 7 :52 PM MARKETING PLANNER POCT GLUCOSE DEVICE Routine 10/09/2024 5 :31 PM MARKETING PLANNER POCT GLUCOSE DEVICE Routine 10/09/2024 2 :24 PM MARKETING PLANNER PACEMAKER GENERATOR CHANGE - DUAL Routine 10/09/2024 12:50 PM MARKETING PLANNER Pacemaker battery depletion DE AN PROCEDURE PLACEHOLDER Routine 10/09/2024 11:44 AM MARKETING PLANNER DE AN ELECTIVE SUPRAGLOTTIC AIRWAY Routine 10/09/2024 11:44 AM MARKETING PLANNER POCT GLUCOSE DEVICE Routine 10/09/2024 1 0:19 AM MARKETING PLANNER POCT GLUCOSE DEVICE Routine 10/09/2024 7 :55 AM MARKETING PLANNER EGFR Routine 10/08/2024 9:46 PM MARKETING PLANNER DIFFERENTIAL AUTO Routine 10/08/2024 9:4 6 PM MARKETING PLANNER PHOSPHORUS Routine 10/08/2024 9:46 PM MARKETING PLANNER MAGNESIUM Routine 10/08/2024 9:46 PM MARKETING PLANNER CBC WITH AUTO DIFFERENTIAL Routine 10/08/2024 9:46 PM MARKETING PLANNER BASIC METABOLIC PANEL Routine 10/08/2024 9:46 PM MARKETING PLANNER POCT GLUCOSE DEVICE Routine 10/08/2024 9 :34 PM MARKETING PLANNER POCT GLUCOSE DEVICE Routine 10/08/2024 4 :47 PM MARKETING PLANNER POCT GLUCOSE DEVICE Routine 10/08/2024 1 1:54 AM MARKETING PLANNER POCT GLUCOSE DEVICE Routine 10/08/2024 7 :44 AM MARKETING PLANNER DIFFERENTIAL AUTO STAT 10/07/2024 9:5 1 PM MARKETING PLANNER CBC WITH AUTO DIFFERENTIAL STAT 10/07/2024 9:51 PM MARKETING PLANNER EGFR Routine 10/07/2024 8:32 PM MARKETING PLANNER PHOSPHORUS Routine 10/07/2024 8:32 PM MARKETING PLANNER MAGNESIUM Routine 10/07/2024 8:32 PM MARKETING PLANNER BASIC METABOLIC PANEL Routine 10/07/2024 8:32 PM MARKETING PLANNER POCT GLUCOSE DEVICE Routine 10/07/2024 8 :22 PM MARKETING PLANNER POCT GLUCOSE DEVICE Routine 10/07/2024 4 :10 PM MARKETING PLANNER POCT GLUCOSE DEVICE Routine 10/07/2024 1 1:30 AM MARKETING PLANNER EGFR Routine 10/07/2024 10:14 AM MARKETING PLANNER DIFFERENTIAL AUTO Routine 10/07/2024 10: 14 AM MARKETING PLANNER PHOSPHORUS Routine 10/07/2024 10:14 AM MARKETING PLANNER MAGNESIUM Routine 10/07/2024 10:14 AM MARKETING PLANNER CBC WITH AUTO DIFFERENTIAL Routine 10/07/2024 10:14 AM MARKETING PLANNER BASIC METABOLIC PANEL Routine 10/07/2024 10:14 AM MARKETING PLANNER POCT GLUCOSE DEVICE Routine 10/07/2024 7 :50 AM MARKETING PLANNER POCT GLUCOSE DEVICE Routine 10/07/2024 7 :49 AM MARKETING PLANNER POCT GLUCOSE DEVICE Routine 10/06/2024 8 :26 PM MARKETING PLANNER LIPID PANEL Routine 10/06/2024 8:25 PM MARKETING PLANNER EGFR Routine 10/06/2024 8:25 PM MARKETING PLANNER DIFFERENTIAL AUTO Routine 10/06/2024 8:2 5 PM MARKETING PLANNER HEMOGLOBIN A1C Routine 10/06/2024 8:25 PM MARKETING PLANNER APTT Routine 10/06/2024 8:25 PM MARKETING PLANNER PROTIME-INR Routine 10/06/2024 8:25 PM MARKETING PLANNER CBC WITH AUTO DIFFERENTIAL Routine 10/06/2024 8:25 PM MARKETING PLANNER PHOSPHORUS Routine 10/06/2024 8:25 PM MARKETING PLANNER MAGNESIUM Routine 10/06/2024 8:25 PM MARKETING PLANNER COMPREHENSIVE METABOLIC PANEL Routine 10/06/2024 8:25 PM MARKETING PLANNER RESPIRATORY PATHOGEN PANEL Routine 10/06/2024 8:25 PM MARKETING PLANNER POCT GLUCOSE DEVICE Routine 10/06/2024 7 :32 PM MARKETING PLANNER POCT GLUCOSE DEVICE Routine 10/06/2024 6 :28 PM MARKETING PLANNER POCT GLUCOSE DEVICE Routine 10/06/2024 5 :25 PM MARKETING PLANNER TRANSTHORACIC ECHO (TTE) COMPLETE W DOPPLER/CF W CONTRAST Routine 10/06/2024 4:47 PM MARKETING PLANNER XR CHEST PA LATERAL 2 VIEWS IP Routine 10/06/2024 2:48 PM MARKETING PLANNER ECG 12-LEAD Routine 10/06/2024 10:30 AM MARKETING PLANNER Presence of cardiac pacemaker DEVICE CHECK - IN OFFICE Routine 10/06/2024 9:58 AM MARKETING PLANNER Presence of cardiac pacemaker SCREENING MAMMOGRAM BILATERAL W JUAN CARLOS Routine 09/29/2017 12:59 PM MARKETING PLANNER from Last 3 Months or Most Recently Relevant to Health Maintenance Results * POCT glucose (10/10/2024 11:22 AM MARKETING PLANNER) Glucose, POC 172 70 - 199 mg/dL Blood 10/10/2024 11:2 2 AM MARKETING PLANNER 10/10/2024 11:22 AM MARKETING PLANNER us Charanjit Zepeda MD PhD LAB POCT ORDERABLES - DE VICE Final Result Performing Organization Address [facility]ZIP Co de Phone Number [facility] [place] [place] [address] * POCT glucose (10/10/2024 7:56 AM MARKETING PLANNER) Glucose, POC 189 70 - 199 mg/dL Blood 10/10/2024 7:56 AM MARKETING PLANNER 10/10/2024 7:56 AM MARKETING PLANNER us Charanjit Zepeda MD PhD LAB POCT ORDERABLES - DE VICE Final Result Performing Organization Address [facility] Co de Phone Number [facility] [place] [address] * (ABNORMAL) eGFR (10/09/2024 8:39 PM MARKETING PLANNER) eGFR 47(L) >=60 mL/min/1. 73 m2 Comment: [...] last reviewed 2021. Blood 10/09/2024 8:39 PM MARKETING PLANNER 10/09/2024 9:23 PM MARKETING PLANNER us Migdalia Hampton MD LAB BLOOD ORDERABLES Final Res ult [facility] [place] [address] * (ABNORMAL) Differential, auto (10/09/2024 8:39 PM MARKETING PLANNER) Neutrophil abs 7.1(H) 1.5 - 6.5 K/cumm Imm gran abs 0.0 0.0 - 0.1 K/cumm [facility] Lymphocyte abs 0.9 0.8 - 3.3 K/cumm [facility] Monocyte abs 0.7 0.2 - 0.8 K/cumm [facility] Eosinophil abs 0.0 0.0 - 0.5 K/cumm [facility] Basophil abs 0.0 0.0 - 0.1 K/cumm [facility] Neutrophil pct 81.6 % [facility] Comment: Interpretive Data Percent cell count reference ranges are not reported, since discordance with absolute values may lead to misinterpretation of CBC data. Current Interpretive Data was last revised on 2017. Imm gran pct 0.1 % [facility] Comment: Interpretive Data Percent cell count reference ranges are not reported, since discordance with absolute values may lead to misinterpretation of CBC data. Current Interpretive Data was last revised on 2017. Lymphocyte pct 10.1 % [facility] Comment: Interpretive Data Percent cell count reference ranges are not reported, since discordance with absolute values may lead to misinterpretation of CBC data. Current Interpretive Data was last revised on 2017. Monocyte pct 7.8 % [facility] Comment: Interpretive Data Percent cell count reference ranges are not reported, since discordance with absolute values may lead to misinterpretation of CBC data. Current Interpretive Data was last revised on 2017. Eosinophil pct 0.1 % [facility] Comment: Interpretive Data Percent cell count reference ranges are not reported, since discordance with absolute values may lead to misinterpretation of CBC data. Current Interpretive Data was last revised on 2017. Basophil pct 0.3 % [facility] Comment: Interpretive Data Percent cell count reference ranges are not reported, since discordance with absolute values may lead to misinterpretation of CBC data. Current Interpretive Data was last revised on 2017. Blood 10/09/2024 8:39 PM MARKETING PLANNER 10/09/2024 9:27 PM MARKETING PLANNER us Migdalia Hampton MD LAB BLOOD ORDERABLES Final Res ult [facility] [place] [address] * (ABNORMAL) CBC with auto differential (10/09/2024 8:39 PM MARKETING PLANNER) WBC 8.7 3.8 - 9.9 K/cumm Hgb 15.1 11.9 - 15.5 g/dL [facility] Hct 44.7 35.6 - 45.5 % [facility] Plt 125(L) 150 - 400 K/cumm [facility] MPV 11.1 9.1 - 12.[address] [facility] RBC 5.22(H) 3.90 - 5.20 M/cumm [facility] MCV 85.6 81.3 - 96.[address] [facility] MCH 28.9 27.1 - 33.[address] [facility] MCHC 33.8 32.3 - 35.7 g/dL [facility] RDW CV 13.0 11.1 - 14.9 % [facility] RDW SD 39.9 35.7 - 48.[address] [facility] NRBC abs 0.00 0.00 - 0.01 K/cumm [facility] Blood 10/09/2024 8:39 PM MARKETING PLANNER 10/09/2024 9:27 PM MARKETING PLANNER us Migdalia Hampton MD LAB BLOOD ORDERABLES Final Res ult Performing Organization Address [facility] Co de Phone Number [facility] [place] [address] * Type and screen (10/09/2024 8:39 PM MARKETING PLANNER) Pathologist [facility] Eriberto, indirect Negative ABO Rh O Positive [facility] Blood 10/09/2024 8:39 PM MARKETING PLANNER 10/09/2024 9:24 PM MARKETING PLANNER Narrative [facility] - 10/09/2024 10:38 PM MARKETING PLANNER Has the patient had Daratumumab or Isatuximab in the past 6 months?->Unknown us Migdalia Hampton MD LAB BLOOD BANK TEST ORDERABLES Final Result Performing Organization Address [facility] Co de Phone Number [facility] [place] [address] * Phosphorus (10/09/2024 8:39 PM MARKETING PLANNER) Pathologist [facility] Phosphorus, pl 4.4 2.3 - 4.5 mg/dL Blood 10/09/2024 8:39 PM MARKETING PLANNER 10/09/2024 9:23 PM MARKETING PLANNER us Migdalia Hampton MD LAB BLOOD ORDERABLES Final Res ult Performing Organization Address [facility] Co de Phone Number [facility] [place] [address] * Magnesium (10/09/2024 8:39 PM MARKETING PLANNER) Pathologist [facility] Magnesium 1.7 1.4 - 2.5 mg/dL Blood 10/09/2024 8:39 PM MARKETING PLANNER 10/09/2024 9:23 PM MARKETING PLANNER Migdalia Hampton MD LAB BLOOD ORDERABLES Final Res ult Performing Organization Address [facility]/ZIP Co de Phone Number [facility] Department [place] [address] * (ABNORMAL) Basic metabolic panel (10/09/2024 8:39 PM MARKETING PLANNER) Pathologist [facility] Sodium 139 135 - 145 mmol/L Potassium, pl 4.9 3.3 - 4.9 mmol/L [facility] Chloride 107 97 - 110 mmol/L [facility] CO2 21(L) 22 - 32 mmol/L [facility] Anion gap 11 2 - 15 mmol/L [facility] BUN 27(H) 6 - 25 mg/dL [facility] Creatinine 1.31(H) 0.60 - 1.10 mg/dL [facility] Glucose 165 70 - 199 mg/dL [facility] Comment: Interpretive Data Fasting glucose >/= 126 [...] 2022. Calcium 8.5 8.5 - 10.3 mg/dL [facility] Blood 10/09/2024 8:39 PM MARKETING PLANNER 10/09/2024 9:23 PM MARKETING PLANNER Migdalia Hampton MD LAB BLOOD ORDERABLES Final Res ult Performing Organization Address [facility]/[place] [address] * POCT glucose (10/09/2024 7:52 PM MARKETING PLANNER) Glucose, POC 139 70 - 199 mg/dL Blood 10/09/2024 7:52 PM MARKETING PLANNER 10/09/2024 7:52 PM MARKETING PLANNER us Charanjit Zepeda MD PhD LAB POCT ORDERABLES - DE VICE Final Result Performing Organization Address [facility] [place] [address] * POCT glucose (10/09/2024 5:31 PM MARKETING PLANNER) Glucose, POC 146 70 - 199 mg/dL Blood 10/09/2024 5:31 PM MARKETING PLANNER 10/09/2024 5:31 PM MARKETING PLANNER us Charanjit Zepeda MD PhD LAB POCT ORDERABLES - DE VICE Final Result Performing Organization Address [facility] Co de Phone Number [facility] [place] [address] * POCT glucose (10/09/2024 2:24 PM MARKETING PLANNER) Glucose, POC 140 70 - 199 mg/dL Blood 10/09/2024 2:24 PM MARKETING PLANNER 10/09/2024 2:24 PM MARKETING PLANNER us Charanjit Zepeda MD PhD LAB POCT ORDERABLES - DE VICE Final Result Performing Organization Address [facility] [place] [place] [address] * PACEMAKER GENERATOR CHANGE - DUAL (10/09/2024 12:50 PM MARKETING PLANNER) Anatomical Region Laterality Modality X-Ray Angiograph y Narrative 10/09/2024 1:13 PM MARKETING PLANNER PACEMAKER GENERATOR REPLACEMENT PROCEDURE REPORT Patient Name: [...] well without any complications. IMPLANT INFORMATION Generator: pinnacle-ecs [id number] lead:Medtronic 4968-35 SN [id number] Implant date 06/29/05 RV lead:Medtronic 4968-35 SN [id number] Implant date 06/29/05 (Epicardial leads placed surgically) [...] and prepared this report. Roc Dumont M.D. Die Testerlegal officer [facility] Division of Cardiology, [place] [address] [place] [id number] us Charanjit Zepeda MD PhD CV ELECTROPHYSIOLOGY PRO CS Final Result * DE AN ELECTIVE SUPRAGLOTTIC AIRWAY, DE AN PROCEDURE PLACEHOLDER (10/09/2024 11:44 AM MARKETING PLANNER) Narrative Ana Briones CRNA - 10/09/2024 11:44 AM MARKETING PLANNER Ana Briones CRNA 10/09/2024 11:46 AM Airway Patient location: OR Urgency: elective Indications for airway management: anesthesia Difficult airway: no Staff: Supervising provider: Sheridan Berry MD Placed by: SHREDDING MACHINE OPERATOR: Ana Briones CRNA Emergent airway documentation: Risks [...] Result * POCT glucose (10/09/2024 10:19 AM MARKETING PLANNER) Glucose, POC 192 70 - 199 mg/dL Blood 10/09/2024 10:1 9 AM MARKETING PLANNER 10/09/2024 10:19 AM MARKETING PLANNER Charanjit Zepeda MD PhD LAB POCT ORDERABLES - DE VICE Final Result Performing Organization Address [facility] Co de Phone Number [facility] [place] [address] * POCT glucose (10/09/2024 7:55 AM MARKETING PLANNER) Glucose, POC 176 70 - 199 mg/dL Blood 10/09/2024 7:55 AM MARKETING PLANNER 10/09/2024 7:55 AM MARKETING PLANNER Charanjit Zepeda MD PhD LAB POCT ORDERABLES - DE VICE Final Result Performing Organization Address [facility] Co de Phone Number [facility] [place] [address] * (ABNORMAL) eGFR (10/08/2024 9:46 PM MARKETING PLANNER) Pathologist [facility] eGFR 41(L) >=60 mL/min/1. 73 m2 Comment: [...] last reviewed 2021. Blood 10/08/2024 9:46 PM MARKETING PLANNER 10/08/2024 10:26 PM MARKETING PLANNER us Migdalia Hampton MD LAB BLOOD ORDERABLES Final Res ult [facility] Department [place] [address] * Differential, auto (10/08/2024 9:46 PM MARKETING PLANNER) Pathologist [facility] Neutrophil abs 5.2 1.5 - 6.5 K/cumm Imm gran abs 0.0 0.0 - 0.1 K/cumm [facility] Lymphocyte abs 1.2 0.8 - 3.3 K/cumm [facility] Monocyte abs 0.6 0.2 - 0.8 K/cumm [facility] Eosinophil abs 0.0 0.0 - 0.5 K/cumm [facility] Basophil abs 0.0 0.0 - 0.1 K/cumm [facility] Neutrophil pct 73.3 % [facility] Comment: Interpretive Data Percent cell count reference ranges are not reported, since discordance with absolute values may lead to misinterpretation of CBC data. Current Interpretive Data was last revised on 2017. Imm gran pct 0.3 % [facility] Comment: Interpretive Data Percent cell count reference ranges are not reported, since discordance with absolute values may lead to misinterpretation of CBC data. Current Interpretive Data was last revised on 2017. Lymphocyte pct 17.4 % [facility] Comment: Interpretive Data Percent cell count reference ranges are not reported, since discordance with absolute values may lead to misinterpretation of CBC data. Current Interpretive Data was last revised on 2017. Monocyte pct 8.1 % [facility] Comment: Interpretive Data Percent cell count reference ranges are not reported, since discordance with absolute values may lead to misinterpretation of CBC data. Current Interpretive Data was last revised on 2017. Eosinophil pct 0.3 % [facility] Comment: Interpretive Data Percent cell count reference ranges are not reported, since discordance with absolute values may lead to misinterpretation of CBC data. Current Interpretive Data was last revised on 2017. Basophil pct 0.6 % [facility] Comment: Interpretive Data Percent cell count reference ranges are not reported, since discordance with absolute values may lead to misinterpretation of CBC data. Current Interpretive Data was last revised on 2017. Blood 10/08/2024 9:46 PM [employer]ETING PLANNER 10/08/2024 10:27 PM [employer]ETING PL[employer]NER us Migdalia Hampton MD LAB BLOOD ORDERABLES Final Res ult [facility] [place] [address] * CBC with auto differential (10/08/2024 9:46 PM MARKETING PL[employer]NER) WBC 7.1 3.8 - 9.9 K/cumm Hgb 15.0 11.9 - 15.5 g/dL [facility] Hct 45.3 35.6 - 45.5 % [facility] Plt 196 150 - 400 K/cumm [facility] MPV 11.2 9.1 - 12.[address] [facility] RBC 5.18 3.90 - 5.20 M/cumm [facility] MCV 87.5 81.3 - 96.[address] [facility] MCH 29.0 27.1 - 33.[address] [facility] MCHC 33.1 32.3 - 35.7 g/dL [facility] RDW CV 13.1 11.1 - 14.9 % [facility] RDW SD 42.0 35.7 - 48.[address] [facility] NRBC abs 0.00 0.00 - 0.01 K/cumm [facility] Blood 10/08/2024 9:46 PM MARKETING PL[employer]NER 10/08/2024 10:27 PM MARKETING PLANNER Migdalia Hampton MD LAB BLOOD ORDERABLES Final Res ult Performing Organization Address City/[facility] Hospital/ZIP Co de Phone Number [facility] Department [place] [address] * Phosphorus (10/08/2024 9:46 PM MARKETING PLANNER) Pathologist [facility] Phosphorus, pl 4.2 2.3 - 4.5 mg/dL Blood 10/08/2024 9:46 PM MARKETING PL[employer]NER 10/08/2024 10:26 PM MARKETING PLANNER Migdalia Hampton MD LAB BLOOD ORDERABLES Final Res ult [facility] [place] [address] * Magnesium (10/08/2024 9:46 PM MARKETING PLANNER) Pathologist [facility] Magnesium 1.8 1.4 - 2.5 mg/dL Blood 10/08/2024 9:46 PM MARKETING PLANNER 10/08/2024 10:26 PM MARKETING PLANNER Migdalia Hampton MD LAB BLOOD ORDERABLES Final Res ult [facility] [place] [address] * (ABNORMAL) Basic metabolic panel (10/08/2024 9:46 PM MARKETING PLANNER) Pathologist [facility] Sodium 139 135 - 145 mmol/L Potassium, pl 4.8 3.3 - 4.9 mmol/L [facility] Chloride 105 97 - 110 mmol/L [facility] CO2 24 22 - 32 mmol/L [facility] Anion gap 10 2 - 15 mmol/L [facility] BUN 27(H) 6 - 25 mg/dL [facility] Creatinine 1.46(H) 0.60 - 1.10 mg/dL [facility] Glucose 194 70 - 199 mg/dL [facility] Comment: Interpretive Data Fasting glucose >/= 126 [...] 2022. Calcium 8.9 8.5 - 10.3 mg/dL [facility] Blood 10/08/2024 9:46 PM MARKETING PLANNER 10/08/2024 10:26 PM MARKETING PLANNER Migdalia Hampton MD LAB BLOOD ORDERABLES Final Res ult Performing Organization Address City/[facility] Hospital/ZIP Co de Phone Number [facility] [place] [place] [address] * POCT glucose (10/08/2024 9:34 PM MARKETING PL[employer]NER) Glucose, POC 194 70 - 199 mg/dL Blood 10/08/2024 9:34 PM MARKETING PL[employer]NER 10/08/2024 9:34 PM MARKETING PL[employer]NER us Charanjit Zepeda MD PhD LAB POCT ORDERABLES - DE VICE Final Result Performing Organization Address [facility] Co ct Phone Number [facility] [place] [address] * POCT glucose (10/08/2024 4:47 PM MARKETING PL[employer]NER) Glucose, POC 151 70 - 199 mg/dL Blood 10/08/2024 4:47 PM MARKETING PLANNER 10/08/2024 4:47 PM MARKETING PLANNER us Charanjit Zepeda MD PhD LAB POCT ORDERABLES - DE VICE Final Result Performing Organization Address [facility] Phone Number [facility] [place] [address] * POCT glucose (10/08/2024 11:54 AM MARKETING PLANNER) Glucose, POC 135 70 - 199 mg/dL Blood 10/08/2024 11:5 4 AM MARKETING PLANNER 10/08/2024 11:54 AM MARKETING PLANNER us Charanjit Zepeda MD PhD LAB POCT ORDERABLES - DE VICE Final Result Performing Organization Address [facility] [place] [address] * POCT glucose (10/08/2024 7:44 AM MARKETING PLANNER) Glucose, POC 152 70 - 199 mg/dL Blood 10/08/2024 7:44 AM MARKETING PLANNER 10/08/2024 7:44 AM MARKETING PLANNER us Charanjit Zepeda MD PhD LAB POCT ORDERABLES - DE VICE Final Result [facility] Department [place] [address] * (ABNORMAL) Differential, auto (10/07/2024 9:51 PM MARKETING PLANNER) Neutrophil abs 7.0(H) 1.5 - 6.5 K/cumm Imm gran abs 0.0 0.0 - 0.1 K/cumm [facility] Lymphocyte abs 0.7(L) 0.8 - 3.3 K/cumm [facility] Monocyte abs 0.6 0.2 - 0.8 K/cumm [facility] Eosinophil abs 0.0 0.0 - 0.5 K/cumm [facility] Basophil abs 0.0 0.0 - 0.1 K/cumm [facility] Neutrophil pct 83.0 % [facility] Comment: Interpretive Data Percent cell count reference ranges are not reported, since discordance with absolute values may lead to misinterpretation of CBC data. Current Interpretive Data was last revised on 2017. Imm gran pct 0.4 % [facility] Comment: Interpretive Data Percent cell count reference ranges are not reported, since discordance with absolute values may lead to misinterpretation of CBC data. Current Interpretive Data was last revised on 2017. Lymphocyte pct 8.8 % [facility] Comment: Interpretive Data Percent cell count reference ranges are not reported, since discordance with absolute values may lead to misinterpretation of CBC data. Current Interpretive Data was last revised on 2017. Monocyte pct 7.5 % [facility] Comment: Interpretive Data Percent cell count reference ranges are not reported, since discordance with absolute values may lead to misinterpretation of CBC data. Current Interpretive Data was last revised on 2017. Eosinophil pct 0.1 % [facility] Comment: Interpretive Data Percent cell count reference ranges are not reported, since discordance with absolute values may lead to misinterpretation of CBC data. Current Interpretive Data was last revised on 2017. Basophil pct 0.2 % [facility] Comment: Interpretive Data Percent cell count reference ranges are not reported, since discordance with absolute values may lead to misinterpretation of CBC data. Current Interpretive Data was last revised on 2017. Blood 10/07/2024 9:51 PM MARKETING PLANNER 10/07/2024 10:34 PM MARKETING PLANNER Amarjit Landry MD LAB BLOOD ORDERABLES Final Result Performing Organization Address City/[facility] Hospital/[facility] Co de Phone Number [facility] [place] [address] * CBC with auto differential (10/07/2024 9:51 PM MARKETING PLANNER) Pathologist [facility] WBC 8.4 3.8 - 9.9 K/cumm Hgb 14.9 11.9 - 15.5 g/dL [facility] Hct 44.9 35.6 - 45.5 % [facility] Plt 183 150 - 400 K/cumm [facility] MPV 11.3 9.1 - 12.[address] [facility] RBC 5.17 3.90 - 5.20 M/cumm [facility] MCV 86.8 81.3 - 96.[address] [facility] MCH 28.8 27.1 - 33.[address] [facility] MCHC 33.2 32.3 - 35.7 g/dL [facility] RDW CV 13.2 11.1 - 14.9 % [facility] RDW SD 41.4 35.7 - 48.[address] [facility] NRBC abs 0.00 0.00 - 0.01 K/cumm [facility] Blood 10/07/2024 9:51 PM MARKETING PLANNER 10/07/2024 10:34 PM MARKETING PLANNER Amarjit Landry MD LAB BLOOD ORDERABLES Final Result Performing Organization Address [facility] Co de Phone Number [facility] [place] [address] * (ABNORMAL) eGFR (10/07/2024 8:32 PM MARKETING PLANNER) Pathologist [facility] eGFR 51(L) >=60 mL/min/1. 73 m2 Comment: [...] last reviewed 2021. Blood 10/07/2024 8:32 PM MARKETING PLANNER 10/07/2024 8:59 PM MARKETING PLANNER Migdalia Hampton MD LAB BLOOD ORDERABLES Final Res ult [facility] [place] [address] * Phosphorus (10/07/2024 8:32 PM MARKETING PLANNER) Phosphorus, pl 3.8 2.3 - 4.5 mg/dL Blood 10/07/2024 8:32 PM MARKETING PLANNER 10/07/2024 8:59 PM MARKETING PLANNER Migdalia Hampton MD LAB BLOOD ORDERABLES Final Res ult [facility] [place] [address] * Magnesium (10/07/2024 8:32 PM MARKETING PLANNER) Magnesium 2.0 1.4 - 2.5 mg/dL Blood 10/07/2024 8:32 PM MARKETING PLANNER 10/07/2024 8:59 PM MARKETING PLANNER Migdalia Hampton MD LAB BLOOD ORDERABLES Final Res ult [facility] Department [place] [address] * (ABNORMAL) Basic metabolic panel (10/07/2024 8:32 PM MARKETING PLANNER) [facility] Sodium 141 135 - 145 mmol/L Potassium, pl 4.5 3.3 - 4.9 mmol/L [facility] Chloride 109 97 - 110 mmol/L [facility] CO2 22 22 - 32 mmol/L [facility] Anion gap 10 2 - 15 mmol/L [facility] BUN 22 6 - 25 mg/dL [facility] Creatinine 1.22(H) 0.60 - 1.10 mg/dL [facility] Glucose 165 70 - 199 mg/dL [facility] Comment: Interpretive Data Fasting glucose >/= 126 [...] 2022. Calcium 9.2 8.5 - 10.3 mg/dL [facility] Blood 10/07/2024 8:32 PM MARKETING PLANNER 10/07/2024 8:59 PM MARKETING PLANNER Migdalia Hampton MD LAB BLOOD ORDERABLES Final Res ult Performing Organization Address [facility] Co de Phone Number [facility] Department [place] [address] * POCT glucose (10/07/2024 8:22 PM MARKETING PLANNER) Glucose, POC 149 70 - 199 mg/dL Blood 10/07/2024 8:22 PM MARKETING PLANNER 10/07/2024 8:22 PM MARKETING PLANNER Charanjit Zepeda MD PhD LAB POCT ORDERABLES - DE VICE Final Result Performing Organization Address [facility] Co ct Phone Number [facility] [place] [address] * (ABNORMAL) POCT glucose (10/07/2024 4:10 PM MARKETING PLANNER) Glucose, POC 208(H) 70 - 199 mg/dL Blood 10/07/2024 4:10 PM MARKETING PLANNER 10/07/2024 4:10 PM MARKETING PLANNER Charanjit Zepeda MD PhD LAB POCT ORDERABLES - DE VICE Final Result Performing Organization Address [facility] de Phone Number [facility] [place] [address] * (ABNORMAL) POCT glucose (10/07/2024 11:30 AM MARKETING PLANNER) Glucose, POC 230(H) 70 - 199 mg/dL Blood 10/07/2024 11:3 0 AM MARKETING PLANNER 10/07/2024 11:30 AM MARKETING PLANNER Charanjit Zepeda MD PhD LAB POCT ORDERABLES - DE VICE Final Result Performing Organization Address [facility] Co de Phone Number [facility] [place] [address] * (ABNORMAL) eGFR (10/07/2024 10:14 AM MARKETING PLANNER) eGFR 52(L) >=60 mL/min/1. 73 m2 Comment: [...] reviewed 2021. Blood 10/07/2024 10:1 4 AM MARKETING PLANNER 10/07/2024 11:24 AM MARKETING PLANNER us Migdalia Hampton MD LAB BLOOD ORDERABLES Final Res ult [facility] Department [place] [address] * (ABNORMAL) Differential, auto (10/07/2024 10:14 AM MARKETING PLANNER) Neutrophil abs 8.7(H) 1.5 - 6.5 K/cumm Imm gran abs 0.0 0.0 - 0.1 K/cumm [facility] Lymphocyte abs 0.7(L) 0.8 - 3.3 K/cumm [facility] Monocyte abs 0.3 0.2 - 0.8 K/cumm [facility] Eosinophil abs 0.0 0.0 - 0.5 K/cumm [facility] Basophil abs 0.0 0.0 - 0.1 K/cumm [facility] Neutrophil pct 89.5 % [facility] Comment: Interpretive Data Percent cell count reference ranges are not reported, since discordance with absolute values may lead to misinterpretation of CBC data. Current Interpretive Data was last revised on 2017. Imm gran pct 0.4 % [facility] Comment: Interpretive Data Percent cell count reference ranges are not reported, since discordance with absolute values may lead to misinterpretation of CBC data. Current Interpretive Data was last revised on 2017. Lymphocyte pct 6.9 % [facility] Comment: Interpretive Data Percent cell count reference ranges are not reported, since discordance with absolute values may lead to misinterpretation of CBC data. Current Interpretive Data was last revised on 2017. Monocyte pct 3.1 % [facility] Comment: Interpretive Data Percent cell count reference ranges are not reported, since discordance with absolute values may lead to misinterpretation of CBC data. Current Interpretive Data was last revised on 2017. Eosinophil pct 0.0 % [facility] Comment: Interpretive Data Percent cell count reference ranges are not reported, since discordance with absolute values may lead to misinterpretation of CBC data. Current Interpretive Data was last revised on 2017. Basophil pct 0.1 % [facility] Comment: Interpretive Data Percent cell count reference ranges are not reported, since discordance with absolute values may lead to misinterpretation of CBC data. Current Interpretive Data was last revised on 2017. Blood 10/07/2024 10:1 4 AM MARKETING PLANNER 10/07/2024 11:24 AM MARKETING PLANNER us Migdalia Hampton MD LAB BLOOD ORDERABLES Final Res ult [facility] Department [place] [address] * (ABNORMAL) CBC with auto differential (10/07/2024 10:14 AM MARKETING PLANNER) WBC 9.7 3.8 - 9.9 K/cumm Hgb 15.8(H) 11.9 - 15.5 g/dL [facility] Hct 46.3(H) 35.6 - 45.5 % [facility] Plt 185 150 - 400 K/cumm [facility] MPV 11.4 9.1 - 12.[address] [facility] RBC 5.43(H) 3.90 - 5.20 M/cumm [facility] MCV 85.3 81.3 - 96.[address] [facility] MCH 29.1 27.1 - 33.[address] [facility] MCHC 34.1 32.3 - 35.7 g/dL [facility] RDW CV 13.2 11.1 - 14.9 % [facility] RDW SD 40.4 35.7 - 48.[address] [facility] NRBC abs 0.00 0.00 - 0.01 K/cumm [facility] Blood 10/07/2024 10:1 4 AM MARKETING PLANNER 10/07/2024 11:24 AM MARKETING PLANNER us Migdalia Hampton MD LAB BLOOD ORDERABLES Final Res ult Performing Organization Address City/[facility] Hospital/[facility] Co de Phone Number [facility] [place] [address] * Phosphorus (10/07/2024 10:14 AM MARKETING PLANNER) Phosphorus, pl 3.9 2.3 - 4.5 mg/dL Blood 10/07/2024 10:1 4 AM MARKETING PLANNER 10/07/2024 11:24 AM MARKETING PLANNER us Migdalia Hampton MD LAB BLOOD ORDERABLES Final Res ult Performing Organization Address [facility] Co de Phone Number [facility] Department [place] [address] * Magnesium (10/07/2024 10:14 AM MARKETING PLANNER) Magnesium 1.6 1.4 - 2.5 mg/dL Blood 10/07/2024 10:1 4 AM MARKETING PLANNER 10/07/2024 11:24 AM MARKETING PLANNER us Migdalia Hampton MD LAB BLOOD ORDERABLES Final Res ult Performing Organization Address City/[facility] Co de Phone Number [facility] [place] [address] * (ABNORMAL) Basic metabolic panel (10/07/2024 10:14 AM MARKETING PLANNER) Pathologist [facility] Sodium 140 135 - 145 mmol/L Potassium, pl 4.9 3.3 - 4.9 mmol/L [facility] Chloride 106 97 - 110 mmol/L [facility] CO2 22 22 - 32 mmol/L [facility] Anion gap 12 2 - 15 mmol/L [facility] BUN 22 6 - 25 mg/dL [facility] Creatinine 1.19(H) 0.60 - 1.10 mg/dL [facility] Glucose 315(H) 70 - 199 mg/dL [facility] Comment: Interpretive Data Fasting glucose >/= 126 [...] 2022. Calcium 9.0 8.5 - 10.3 mg/dL [facility] Blood 10/07/2024 10:1 4 AM MARKETING PLANNER 10/07/2024 11:24 AM MARKETING PLANNER Migdalia Hampton MD LAB BLOOD ORDERABLES Final Res ult [facility] Department [place] [address] * (ABNORMAL) POCT glucose (10/07/2024 7:50 AM MARKETING PLANNER) Pathologist [facility] Glucose, POC 270(H) 70 - 199 mg/dL Blood 10/07/2024 7:50 AM MARKETING PLANNER 10/07/2024 7:50 AM MARKETING PLANNER us Migdalia Hampton MD LAB POCT ORDERABLES - DEVICE F inal Result Performing Organization Address [facility] Co de Phone Number [facility] [place] [address] * (ABNORMAL) POCT glucose (10/07/2024 7:49 AM MARKETING PLANNER) Glucose, POC 254(H) 70 - 199 mg/dL Blood 10/07/2024 7:49 AM MARKETING PLANNER 10/07/2024 7:49 AM MARKETING PLANNER us Migdalia Hampton MD LAB POCT ORDERABLES - DEVICE F inal Result Performing Organization Address [facility] de Phone Number [facility] [place] [address] * (ABNORMAL) POCT glucose (10/06/2024 8:26 PM MARKETING PLANNER) Glucose, POC 202(H) 70 - 199 mg/dL Blood 10/06/2024 8:26 PM MARKETING PLANNER 10/06/2024 8:26 PM MARKETING PLANNER us Migdalia Hampton MD LAB POCT ORDERABLES - DEVICE F inal Result Performing Organization Address [facility] de Phone Number [facility] [place] [address] * (ABNORMAL) eGFR (10/06/2024 8:25 PM MARKETING PLANNER) eGFR 48(L) >=60 mL/min/1. 73 m2 Comment: [...] last reviewed 2021. Blood 10/06/2024 8:25 PM MARKETING PLANNER 10/06/2024 9:05 PM MARKETING PLANNER us Charanjit Zepeda MD PhD LAB BLOOD ORDERABLES Fin al Result [facility] Department [place] [address] * Differential, auto (10/06/2024 8:25 PM MARKETING PLANNER) Neutrophil abs 4.8 1.5 - 6.5 K/cumm Comment:Collection date/time has been modified to: 20:25:00. Previous collection date/time: 17:30:00. Imm gran abs 0.0 0.0 - 0.1 K/cumm [facility] Comment:Collection date/time has been modified to: 20:25:00. Previous collection date/time: 17:30:00. Lymphocyte abs 1.3 0.8 - 3.3 K/cumm [facility] Comment:Collection date/time has been modified to: 20:25:00. Previous collection date/time: 17:30:00. Monocyte abs 0.5 0.2 - 0.8 K/cumm [facility] Comment:Collection date/time has been modified to: 20:25:00. Previous collection date/time: 17:30:00. Eosinophil abs 0.0 0.0 - 0.5 K/cumm [facility] Comment:Collection date/time has been modified to: 20:25:00. Previous collection date/time: 17:30:00. Basophil abs 0.0 0.0 - 0.1 K/cumm [facility] Comment:Collection date/time has been modified to: 20:25:00. Previous collection date/time: 17:30:00. Neutrophil pct 72.5 % [facility] Comment: Collection date/time has been modified to: 20:25:00. Previous collection date/time: 17:30:00. Interpretive Data Percent cell count reference ranges are not reported, since discordance with absolute values may lead to misinterpretation of CBC data. Current Interpretive Data was last revised on 2017. Imm gran pct 0.3 % [facility] Comment: Collection date/time has been modified to: 20:25:00. Previous collection date/time: 17:30:00. Interpretive Data Percent cell count reference ranges are not reported, since discordance with absolute values may lead to misinterpretation of CBC data. Current Interpretive Data was last revised on 2017. Lymphocyte pct 18.9 % [facility] Comment: Collection date/time has been modified to: 20:25:00. Previous collection date/time: 17:30:00. Interpretive Data Percent cell count reference ranges are not reported, since discordance with absolute values may lead to misinterpretation of CBC data. Current Interpretive Data was last revised on 2017. Monocyte pct 7.5 % [facility] Comment: Collection date/time has been modified to: 20:25:00. Previous collection date/time: 17:30:00. Interpretive Data Percent cell count reference ranges are not reported, since discordance with absolute values may lead to misinterpretation of CBC data. Current Interpretive Data was last revised on 2017. Eosinophil pct 0.4 % [facility] Comment: Collection date/time has been modified to: 20:25:00. Previous collection date/time: 17:30:00. Interpretive Data Percent cell count reference ranges are not reported, since discordance with absolute values may lead to misinterpretation of CBC data. Current Interpretive Data was last revised on 2017. Basophil pct 0.4 % [facility] Comment: Collection date/time has been modified to: 20:25:00. Previous collection date/time: 17:30:00. Interpretive Data Percent cell count reference ranges are not reported, since discordance with absolute values may lead to misinterpretation of CBC data. Current Interpretive Data was last revised on 2017. Blood 10/06/2024 8:25 PM MARKETING PLANNER 10/06/2024 9:03 PM MARKETING PLANNER us Charanjit Zepeda MD PhD LAB BLOOD ORDERABLES Juan Pablo charu Result - Final Performing Organization Address City/State/[facility] Co de Phone Number [facility] [place] [address] * Respiratory pathogen panel Nasopharyngeal (10/06/2024 8:25 PM MARKETING PLANNER) Pathologist [facility] Influenza A RNA Not Detected Not Detected Influenza B RNA Not Detected Not Detected [facility] RSV RNA Not Detected Not Detected [facility] COVID-19 RNA Not Detected Not Detected [facility] Coronavirus 229E RNA Not Detected Not Detected [facility] Coronavirus HKU1 RNA Not Detected Not Detected [facility] Coronavirus NL63 RNA Not Detected Not Detected [facility] Coronavirus OC43 RNA Not Detected Not Detected [facility] Adenovirus DNA Not Detected Not Detected [facility] Metapneumovirus RNA Not Detected Not Detected [facility] Rhinovirus/Enterov irus RNA Not Detected Not Detected [facility] Parainfluenza 1 RNA Not Detected Not Detected [facility] Parainfluenza 2 RNA Not Detected Not Detected [facility] Parainfluenza 3 RNA Not Detected Not Detected [facility] Parainfluenza 4 RNA Not Detected Not Detected [facility] B. pertussis DNA Not Detected Not Detected [facility] B. parapertussis DNA Not Detected Not Detected [facility] C. pneumoniae DNA Not Detected Not Detected [facility] M. pneumoniae DNA Not Detected Not Detected [facility] Nasopharyngeal 10/06/2024 8: 25 PM MARKETING PLANNER 10/06/2024 9:00 PM MARKETING PLANNER Narrative [facility] - 10/06/2024 10:49 PM MARKETING PLANNER Is the Patient experiencing symptoms consistent with COVID?->No Surveillance testing for transplant patient?->No Interpretive Data The [employer] Film[employer] Respiratory Panel (RP2.1) assay is a [...] patient with possible respiratory tract infection. The [employer] RP2.1 assay has FDA clearance for testing of ASSISTANT OPERATOR swabs. The performance of additional specimen types has been assessed by the performing laboratory. The performance characteristics of this assay have been determined by [facility] Molecular Infectious Disease Laboratory. Current interpretive data was last revised on 22. us Migdalia Hampton MD LAB MICROBIOLOGY - GENERAL ORD ERABLES Final Result [facility] Department [place] [address] * (ABNORMAL) CBC with auto differential (10/06/2024 8:25 PM MARKETING PLANNER) WBC 6.7 3.8 - 9.9 K/cumm Comment:Collection date/time has been modified to: 20:25:00. Previous collection date/time: 17:30:00. Hgb 16.3(H) 11.9 - 15.5 g/dL [facility] Comment:Collection date/time has been modified to: 20:25:00. Previous collection date/time: 17:30:00. Hct 48.5(H) 35.6 - 45.5 % [facility] Comment:Collection date/time has been modified to: 20:25:00. Previous collection date/time: 17:30:00. Plt 207 150 - 400 K/cumm [facility] Comment:Collection date/time has been modified to: 20:25:00. Previous collection date/time: 17:30:00. MPV 11.1 9.1 - 12.3 fL [facility] Comment:Collection date/time has been modified to: 20:25:00. Previous collection date/time: 17:30:00. RBC 5.75(H) 3.90 - 5.20 M/cumm [facility] Comment:Collection date/time has been modified to: 20:25:00. Previous collection date/time: 17:30:00. MCV 84.3 81.3 - 96.4 fL [facility] Comment:Collection date/time has been modified to: 20:25:00. Previous collection date/time: 17:30:00. MCH 28.3 27.1 - 33.3 pg [facility] Comment:Collection date/time has been modified to: 20:25:00. Previous collection date/time: 17:30:00. MCHC 33.6 32.3 - 35.7 g/dL [facility] Comment:Collection date/time has been modified to: 20:25:00. Previous collection date/time: 17:30:00. RDW CV 13.4 11.1 - 14.9 % [facility] Comment:Collection date/time has been modified to: 20:25:00. Previous collection date/time: 17:30:00. RDW SD 41.1 35.7 - 48.1 fL [facility] Comment:Collection date/time has been modified to: 20:25:00. Previous collection date/time: 17:30:00. NRBC abs 0.00 0.00 - 0.01 K/cumm [facility] Comment:Collection date/time has been modified to: 20:25:00. Previous collection date/time: 17:30:00. Blood 10/06/2024 8:25 PM MARKETING PLANNER 10/06/2024 9:03 PM MARKETING PLANNER us Charanjit Zepeda MD PhD LAB BLOOD ORDERABLES Juan Pablo charu Result - Final [facility] Department [place] [address] * aPTT (10/06/2024 8:25 PM MARKETING PLANNER) aPTT 35 28 - 38 sec Comment: Collection date/time has been modified to: 20:25:00. Previous collection date/time: 17:30:00. Interpretive Data Heparin therapeutic range: 66.0 - 100.0 seconds. Range based on correlation with therapeutic heparin activity range of 0.3 - 0.7 Units/mL. Current interpretive data was last revised on 2023. Blood 10/06/2024 8:25 PM MARKETING PLANNER 10/06/2024 9:05 PM MARKETING PLANNER us Charanjit Zepeda MD PhD LAB BLOOD ORDERABLES Juan Pablo charu Result - Final [facility] Department [place] [address] * Protime-INR (10/06/2024 8:25 PM MARKETING PLANNER) PT 10.6 9.7 - 13.0 sec Comment:Collection date/time has been modified to: 20:25:00. Previous collection date/time: 17:30:00. INR 0.98 0.90 - 1.20 [facility] Comment: Collection date/time has been modified to: 20:25:00. Previous collection date/time: 17:30:00. Interpretive data Oral anticoagulant therapeutic ranges: Venous thromboembolism prophylaxis or treatment: 2.0-3.0 CARDIOLOGY Standard range: 2.0-3.0 High-intensity range: 2.5-3.5 Refer to indication-specific guidelines for appropriate target ranges for prosthetic heart valve replacement. Current interpretive data was last revised on 2019. Blood 10/06/2024 8:25 PM MARKETING PLANNER 10/06/2024 9:05 PM MARKETING PLANNER us Charanjit Zepeda MD PhD LAB BLOOD ORDERABLES Juan Pablo charu Result - Final Performing Organization Address [facility] [place] [address] * (ABNORMAL) Phosphorus (10/06/2024 8:25 PM MARKETING PLANNER) Phosphorus, pl 4.8(H) 2.3 - 4.5 mg/dL Blood 10/06/2024 8:25 PM MARKETING PLANNER 10/06/2024 8:59 PM MARKETING PLANNER Charanjit Zepeda MD PhD LAB BLOOD ORDERABLES Fin al Result Performing Organization Address [facility] de Phone Number [facility] [place] [address] * Magnesium (10/06/2024 8:25 PM MARKETING PLANNER) [facility] Magnesium 1.7 1.4 - 2.5 mg/dL Blood 10/06/2024 8:25 PM MARKETING PLANNER 10/06/2024 8:59 PM MARKETING PLANNER Charanjit Zepeda MD PhD LAB BLOOD ORDERABLES Fin al Result Performing Organization Address [facility] de Phone Number [facility] [place] [address] * (ABNORMAL) Hemoglobin A1c (10/06/2024 8:25 PM MARKETING PLANNER) Hgb A1C 9.1(H) 4.0 - 5.6 % Estimated Average Glucose 214 mg/dL [facility] Comment: The ADA recommends reporting an estimated Average Glucose (eAG) with all Hemoglobin A1c results using the equation derived from a study of 507 normal and diabetic adults. Minority populations were underrepresented and children were not included. (Diabetes Care 2020; 43(S1): S66-S76). The eAG is not equivalent to a fasting glucose. Blood 10/06/2024 8:25 PM MARKETING PLANNER 10/06/2024 9:03 PM MARKETING PLANNER us Migdalia Hampton MD LAB BLOOD ORDERABLES Final Res ult [facility] Department [place] [address] * (ABNORMAL) Lipid panel (10/06/2024 8:25 PM MARKETING PLANNER) Cholesterol 271(H) 30 - 199 mg/dL Comment: [...] revised on 2018. Triglycerides 182(H) <=149 mg/dL [facility] Comment: Interpretive Data Ages < or = [...] revised on 2018. HDL 57 >=40 mg/dL [facility] Comment: Interpretive Data Ages < or = [...] 2018. LDL, calculated 180(H) <=129 mg/dL [facility] Comment: Interpretive Data Ages [...] 3. Deuce Parham et al. MAYRA Cardiol. 2019December 28;5(5):540-548. doi: 10.1001/jamacardio.2020.0013 Current Interpretive Data was last revised on 2024. Non-HDL Cholesterol 214 mg/dL [facility] Comment: Interpretive Data Ages < or = [...] 5 [facility] Blood 10/06/2024 8:25 PM MARKETING PLANNER 10/06/2024 8:59 PM MARKETING PLANNER us Migdalia Hampton MD LAB BLOOD ORDERABLES Final Res ult [facility] Department [place] [address] * (ABNORMAL) Comprehensive metabolic panel (10/06/2024 8:25 PM MARKETING PLANNER) Sodium 141 135 - 145 mmol/L Potassium, pl 4.7 3.3 - 4.9 mmol/L [facility] Comment:Hemolyzed; Potassium value may be falsely elevated by as much as 0.3-0.5 mmol/L. Suggest redraw and reanalysis. Chloride 103 97 - 110 mmol/L [facility] CO2 26 22 - 32 mmol/L [facility] Anion gap 12 2 - 15 mmol/L [facility] BUN 19 6 - 25 mg/dL [facility] Creatinine 1.27(H) 0.60 - 1.10 mg/dL [facility] Glucose 209(H) 70 - 199 mg/dL [facility] Comment: Interpretive Data Fasting glucose >/= 126 [...] 2022. Calcium 9.4 8.5 - 10.3 mg/dL [facility] Bilirubin, total 0.7 0.1 - 1.2 mg/dL [facility] Protein, pl 7.5 6.5 - 8.5 g/dL [facility] Albumin 3.9 3.5 - 5.0 g/dL [facility] Alk phos 110 40 - 130 Units/L [facility] ALT 18 7 - 45 Units/L [facility] AST 26 10 - 45 Units/L [facility] Comment:Hemolyzed; result ma y be falsely elevated Blood 10/06/2024 8:25 PM MARKETING PLANNER 10/06/2024 8:59 PM MARKETING PLANNER us Charanjit Zepeda MD PhD LAB BLOOD ORDERABLES Fin al Result Performing Organization Address [facility] Co de Phone Number [facility] [place] [address] * POCT glucose (10/06/2024 7:32 PM MARKETING PLANNER) Glucose, POC 199 70 - 199 mg/dL Blood 10/06/2024 7:32 PM MARKETING PLANNER 10/06/2024 7:32 PM MARKETING PLANNER Migdalia Hampton MD LAB POCT ORDERABLES - DEVICE F inal Result Performing Organization Address [facility] de Phone Number [facility] [place] [address] * POCT glucose (10/06/2024 6:28 PM MARKETING PLANNER) Glucose, POC 130 70 - 199 mg/dL Blood 10/06/2024 6:28 PM MARKETING PLANNER 10/06/2024 6:28 PM MARKETING PLANNER Migdalia Hampton MD LAB POCT ORDERABLES - DEVICE F inal Result Performing Organization Address [facility] de Phone Number [facility] [place] [address] * (ABNORMAL) POCT glucose (10/06/2024 5:25 PM MARKETING PLANNER) Glucose, POC 67(L) 70 - 199 mg/dL Blood 10/06/2024 5:25 PM MARKETING PLANNER 10/06/2024 5:25 PM MARKETING PLANNER Migdalia Hampton MD LAB POCT ORDERABLES - DEVICE F inal Result Performing Organization Address [facility] Co de Phone Number [facility] [place] [address] * TRANSTHORACIC ECHO (TTE) COMPLETE W DOPPLER/CF W CONTRAST (10/06/2024 4:47 PM MARKETING PLANNER) LV EF % CONS SCIMAGE Anatomical Region Laterality Modality Ultrasound 10/06/2024 2:56 PM MARKETING PLANNER Narrative 10/06/2024 5:58 PM MARKETING PLANNER [facility] [place] [address] Transthoracic Echocardiographic Report Patient Name: MARLYS PHAN R : 1965 (58y 10m) Gender: F Study Date: 10/06/2024 14:56:22 Ht(Inch): 60 Wt(Lb): 173.06 BSA: 1.82 Staff Cytotechnologist: Agustín Kaye RDCS Location: [id number] Order Provider: CHARANJIT ZEPEDA Heart Rate: 65 BMI: 33.79 BP: 134 / 64 Quality: The study images were of technically good quality. Ref Provider: CHARANJIT ZEPEDA PROCEDURES: Echocardiographic Report: ([id number], [id number]) Transthoracic complete echo with strain imaging and [...] left ventricular systolic function. The Ejection Fraction (Laas's) is measured at 63 %. The average [...] pulmonary hypertension (45-60mmHg). There was at least xzed-wg-dtkpzgdz tricuspid insufficiency with an eccentric jet that [...] mitral stenosis with severe mitral insufficiency. 4. Xfui-aq-kkfmeigk tricuspid insufficiency with moderately increased estimated pulmonary [...] Signed By: Jeromy Sanchez MD 10/06/2024 17:58:00 MARKETING PLANNER Electronically Signed By: Jeromy Sanchez MD 10/06/2024 17:58:00 MARKETING PLANNER CC: Charanjit Zepeda M.D. Procedure Note Jeromy Sanchez MD - 10/06/[address] [facility] [place] [address] Transthoracic Echocardiographic Report Patient Name: MARLYS PHAN R : 1965 (58y 10m) Gender: F Study Date: 10/06/2024 14:56:22 Ht(Inch): 60 Wt(Lb): 173.06 BSA: 1.82 Staff Cytotechnologist: Agustín Kaye RDCS Location: [id number] Order Provider:CHARANJIT ZEPEDA Heart Rate: 65 BMI: 33.79 BP: 134 / 64 Quality: The study images were oftechnically good quality. Ref Provider: CHARANJIT ZEPEDA PROCEDURES: Echocardiographic Report: ([id number], [id number]) Transthoracic complete echo withstrain imaging and contrast, 2D, spectral and tissue Doppler, color flow Doppler,M-mode. Contrast: Contrast Enhancement was Employed: After initial imaging due tosub- optimal quality related to co-morbidity defined by patient's body habitus. 0.4 mlOptison Administered, (2.6 ml wasted). 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 FINDINGS: Left Ventricle: Normal left ventricular size [...] moderate pulmonaryhypertension (45-60mmHg). There was at least mnkr-yp-hbpmcqdf tricuspid insufficiencywith an eccentric jet that courses [...] mitral stenosis with severe mitral insufficiency. 4. Ekqi-di-ykmgamoa tricuspid insufficiency with moderately increasedestimated pulmonary artery [...] [ 2.5 - 4.2 ] MV Decel Ckup271.69 msec [ 104.00 - 258.00 ] RA [...] Signed By: Jeromy Sanchez MD 10/06/2024 17:58:00 MARKETING PLANNER Electronically Signed By: Jeromy Sanchez MD 10/06/2024 17:58:00 MARKETING PLANNER CC: Charanjit Zepeda M.D. us Charanjit Zepeda MD PhD CV ECHO PROCEDURES Final Result * XR Chest PA Lateral 2 Views (10/06/2024 2:48 PM MARKETING PLANNER) Anatomical Region Laterality Modality Body, Chest N/A Computed Radiogr aphy 10/06/2024 3:07 PM MARKETING PLANNER Impressions 10/06/2024 4:48 PM MARKETING PLANNER Comparison is made to chest radiograph of [...] Mary MD, PHD Narrative 10/06/2024 4:48 PM MARKETING PLANNER EXAMINATION: 2 view chest radiograph Procedure Note Charanjti Mary MD PhD - 10/06/2024 EXAMINATION: 2 [...] Electronically signed by: Charanjit Mary MD, PHD Charanjit Zepeda MD PhD IMG XR PROCEDURES Final Result * ECG 12 lead (10/06/2024 10:30 AM MARKETING PLANNER) Result [facility] Migdalia Hampton MD ECG ORDERABLES Final Result * DEVICE CHECK - IN OFFICE (10/06/2024 9:58 AM MARKETING PLANNER) Anatomical Region Laterality Modality Other 10/06/2024 2:00 AM MARKETING PLANNER Narrative 10/11/2024 11:09 AM MARKETING PLANNER Interpretation Summary: Procedure Note Migdalia Hampton MD - 10/11/2024 Interpretation Summary: Migdalia Hampton MD CV CARDIAC SERVICES PROCEDURES Final Result * Screening Mammogram Bilateral W Juan Carlos (09/29/2017 12:59 PM MARKETING PLANNER) Anatomical Region Laterality Modality Breast Bilateral Mammography 09/29/2017 12:5 9 PM MARKETING PLANNER Impressions 09/29/2017 2:36 PM MARKETING PLANNER BI-RAD 1 NEGATIVE There is no mammographic evidence of malignancy. A 1 year screening mammogram is recommended. The patient has been or will be contacted. The patient will be entered into a reminder system with a target due date of 1 year for her next screening exam. Electronically signed by: Dr. Matt Beckett M.D. nh/:09/29/2017 14:34:50 Compressor Mechanic Bus: Jaqueline WHITE)(M), [facility] letter sent: Normal Exam Reading location: BI-RADS: 1 Negative [EOD] Narrative 09/29/2017 2:36 PM MARKETING PLANNER - MG BILATERAL DIGITAL SCREENING MAMMOGRAM 3D/2D [...] is made to exam dated: 03/05/2010 - [facility]. BREAST TISSUE: There are scattered [...] is made to exam dated: 03/05/2010 - [facility]. BREAST TISSUE: There are scattered areas [...] by: Dr. Matt Beckett M.D. nh/:09/29/2017 14:34:50 Compressor Mechanic Bus: Jaqueline WHITE)(Dione), [facility] letter sent: Normal Exam Reading location: BI-RADS: 1 Negative [EOD] us Timothy Fierro MD IMG MAMMO PROCEDURES Final Result from Last 3 Months or Most Recently Relevant to Health Maintenance Additional Health Concerns Active Problems Noted Date Diagnosed Date Initial Follow-Up Appointment 10/11/2024 Insurance [facility] Advance Directives For more information, please contact: [phone] * Full Code (Latest Code Status on File) Date Activated Date Inactivated Comments 10/06/2024 1:31 PM 10/10/2024 7:57 PM Care Teams Hydro Pneumatic Tester Relationship Specialty Start Date End Date Bessie Mora NP [address] [place] [address] PCP - General Family Medicine 10/10/24 Kristy Campos, BIG 6 DEALER [address] [facility] [place] [place] Mailstop [phone] [place] [address] [facility] Outpatient Dean Of Women 10/11/24
--- OUTSIDE RECORDS SUMMARY | 2024-10-22 00:43 | XMS_ITS | Encounter Summary ---
Author Organization [facility] Facility Care Team Providers Care Field Service Specialist Name Role Phone Charity Vela NP Primary Care Provide r Bessie Mora NP Primary Care Provider Kristy Campos Yaquelin EDGE BLACKER Unavailable [phone] Encounter Details Date Type Department Care Team (Latest Contact Info) Description 12/10/2016 Orders Only [facility] CLINCONV ProviderDallas MD [address] [place] [id number] Social History Tobacco Use Types Packs/Day Years Used Date Smoking Tobacco: Never Comments Unknown Sex and Gender Information Value Date Recorded Sex Assigned at Not on file Legal Sex Female 6:46 AM DELI BAKERY CLERK Gender Identity Not on file Sexual Orientation Not on file documented as of this encounter Plan of Treatment Not on file documented as of this encounter Procedures Procedure Name Priority Date/Time Associated Diagnosis Comments CARDIOLOGY REPORT 12/10/2016 12: 00 AM CDT documented in this encounter Results * CARDIOLOGY REPORT (12/10/2016 12:00 AM CDT) Anatomical Region Laterality Modality Other Narrative 12/10/2016 12:00 AM CDT Ordered by an unspecified provider. Historical Provider [facility] CARDIAC SERVICES RAVEN CELIS Final Result documented in this encounter Visit Diagnoses Not on filedocumented in this encounter Care Teams Field Service Specialist Relationship Specialty Start Date End Date Charity Vela NP PCP - General Nurse Practitioner 05/09/21 10/09/24 Bessie Mora NP [address] [place] [address] PCP - General Family Medicine 10/10/24 Kristy Campos, EDGE BLACKER [address] [facility] [place] [place] Mailstop [phone] [place] [address] [facility] Outpatient Producer Assistant 10/11/24 documented as of this encounter
--- OUTSIDE RECORDS SUMMARY | 2024-10-22 00:43 | XMS_ITS | Data Portability ---
Author Organization [facility] Address [address] [place] [address] Care Team Providers Care Residential Interior Designer Name Role Phone BESSIE MORA Primary Care Provider Assessment Encounter Date Assessment Date Assessment LastModified by Organization Details LastModified Time 05/19/2024 05/19/2024 58-year-old female who has a history of congenital heart disease she had either atrial septum or ventricular septum repair at [facility] more than 20 years ago records are not available. Status post abdominal pacemaker. No recent records of her pacemaker check. I will obtain her records from Dr. Ceron daily as she was following with him previously. Coronary artery disease, currently she is on aspirin and Plavix I recommended her to stop taking Plavix and continue with aspirin 81 mg p.o. daily. Hyperlipidemia, currently she is on lovastatin 20 mg daily. I will check lipid profile and CMP. Dyspnea on exertion history of mildly impaired left ventricular systolic function ejection fraction of 50-55% I will get an echocardiogram to evaluate left ventricular systolic function. History of mitral regurgitation I will see her again in 4 weeks and make further recommendation. Wagner renteria 2023: Permanent pacemaker placement, I obtain her records on her permanent pacemaker once I have those records I will schedule her for pacemaker check in my office. Coronary artery disease, stable. Hyperlipidemia, LDL is markedly elevated I recommended her to increase Crestor to 40 mg daily. I also added Zetia 10 mg daily. I discussed and advised her to modify her diet to lower her cholesterol. I will see her again in 4 weeks. [email or web address] Not available 05/19/2024 11:25:34 06/21/2024 06/21/2024 58-year-old female who has a history of congenital heart disease she had either atrial septum or ventricular septum repair at [facility] more than 20 years ago records are not available. Status post abdominal pacemaker. No recent records of her pacemaker check. I will obtain her records from Dr. Ceron daily as she was following with him previously. Coronary artery disease, currently she is on aspirin and Plavix I recommended her to stop taking Plavix and continue with aspirin 81 mg p.o. daily. Hyperlipidemia, currently she is on lovastatin 20 mg daily. I will check lipid profile and CMP. Dyspnea on exertion history of mildly impaired left ventricular systolic function ejection fraction of 50-55% I will get an echocardiogram to evaluate left ventricular systolic function. History of mitral regurgitation I will see her again in 4 weeks and make further recommendation. Wagner renteria 2023: Permanent pacemaker placement, I obtain her records on her permanent pacemaker once I have those records I will schedule her for pacemaker check in my office. Coronary artery disease, stable. Hyperlipidemia, LDL is markedly elevated I recommended her to increase Crestor to 40 mg daily. I also added Zetia 10 mg daily. I discussed and advised her to modify her diet to lower her cholesterol. I will see her again in 4 weeks. June 21, 2024: Status post permanent pacemaker I will schedule her for pacemaker check remotely and in office later. Coronary artery disease stable. Continue with aspirin along with statin Hyperlipidemia , I will check a lipid profile and CMP before follow-up I will see her again in 3 months [email or web address] Not available 06/21/2024 14:56:58 Plan of Treatment Reminders Order Date Submit Date Provider Last Modified By Organization Details Last Modified Time Details Appointments JULIO SON T 60 2024 10:00A Dione Landeros, MAQRUISD Not available Not available Not available NEW HUY T 60 2024 01:00P M Abigail Asif MANAGER [facility], [facility] Not available Not available Not available Lab glucos e, finger stick, blood 2023 024 renu In-Office Order, Internal Use Only DO Not Attach Compendium DO Not Attach Compendium, Do Not Delete/merge, [id number] 08/10/2024 11:20:35 HbA1c (hemog lobin A1c), blood 2023 025 [facility], [address], [address], [place], [address], 10/11/2024 03:04:27 HbA1c (hemog lobin A1c), blood 2023 024 [facility], [address], [address], [place], [address], 08/28/2024 03:06:06 lipid panel, serum 2023 024 MARG[facility]ITA [facility], [address], [address], [place], [address], 08/28/2024 03:06:04 CMP, serum or plasma 2023 024 MARG[facility], [address], [address], [place], [address], 08/28/2024 03:06:05 glucos e, finger stick, blood 2023 024 renu In-Office Order, Internal Use Only DO Not Attach Compendium DO Not Attach Compendium, Do Not Delete/merge, [id number] 06/06/2024 15:21:24 glucos e, finger stick, blood 2023 024 renu In-Office Order, Internal Use Only DO Not Attach Compendium DO Not Attach Compendium, Do Not Delete/merge, [id number] 05/03/2024 15:23:11 Referral psychi atrist referr al 2023 024 myah Bermeo mirtha MANAGER [facility], [facility], [address] [place], [address], 10/11/2024 11:25:25 pharma cist referr al 2023 024 myah lovell PHARMD, [address] [facility], [address], [place], [address], 09/27/2024 11:30:28 gastro entero logist referr al 2023 024 [facility] Yolanda Mann MD, [address] [facility], [address], [place], [address], 09/06/2024 15:00:34 physic al therap ist referr al 2023 024 [facility] (Outpatient Physical Therapy), [address], [place], [address], 09/06/2024 15:00:34 Procedures pacema ker interr ogatio n (PROC) 2023 024 [facility], [address], [address], [place], [address], 07/06/2024 12:23:55 Surgeries None record ed. Imaging MAMMO, screen ing, bilate ral - US ok if indica charu [address] (Admitting), [address], [place], [address], 09/14/2024 15:05:11 XR, knee, 3 view - bilate ral knees 2023 024 [facility], [address], [address], [place], [address], 10/04/2024 18:16:43 Medication Orders amoxic illin 875 mg-pot assium clavul anate 125 mg tablet 2023 024 [facility], [address], [place], [place], [id number], 08/10/2024 11:27:15 capsai jesus 0.075 % topica l cream 2023 024 [facility] #50248, [address], [place], [place], [id number], 08/10/2024 11:31:28 hydroc ortiso ne-ritchie tic acid 1 %-2 % ear drops 2023 024 [facility] #49161, [address], [place], [place], [id number], 06/14/2024 10:33:17 rosuva statin 40 mg tablet 2023 024 [facility] #01525, [address], [place], [place], [id number], 05/19/2024 11:16:49 Zetia 10 mg tablet 2023 024 [facility] #08447, [address], [place], [place], [id number], 05/19/2024 11:16:50 ropini role 2 mg tablet 2023 024 [facility] #90369, [address], [place], [place], [id number], 05/03/2024 15:37:29 calcip otrien e-beta methas one 0.005 %-0.06 4 % topica l ointme nt 2023 024 [facility] #88636, [address], [place], [place], [id number], 05/05/2024 13:05:36 Patient TargetsNo targets recorded. Patient Instructions Encounter Date Encounter Id Patient Instructions Last Modified By Organization Details Last Modified Time 05/03/2024 [id number] A healthy lifestyle: care instructions renu Not available 05/09/2024 10:02:19 dash diet: care instructions renu Not available 05/03/2024 15:30:12 How To Lower Blood Pressure [email or web address] Not available 05/03/2024 15:30:12 06/06/2024 [id number] A healthy lifestyle: care instructions jcrnock Not available 06/08/2024 08:34:52 dash diet: care instructions jcrnock Not available 06/08/2024 08:34:52 How To Lower Blood Pressure jcrnock Not available 06/08/2024 08:34:52 08/10/2024 [id number] A healthy lifestyle: care instructions jcrnock Not available 08/10/2024 11:35:36 Acute Sinusitis: Care Instructions [email or web address] Not available 08/10/2024 11:27:31 dash diet: care [facility] 08/10/2024 11:21:37 How To Lower Blood Pressure jcrnock Not available 08/10/2024 11:21:37 Reason for Referral Physical Therapist Referral for Pain of bilateral knee joints Referring Physician: Bessie Mora [facility], Encounter Date: 05/03/2024 Anime Designer Referral for Screening for malignant neoplasm of colon Referring Physician: Bessie Mora [facility], Encounter Date: 05/03/2024 Pharmacist Referral for Type 2 diabetes mellitus Referring Physician: Bessie Mora [facility], Encounter Date: 06/06/2024 Psychiatrist Referral for Hi story of depression Referring Physician: Bessie Mora [facility], Encounter Date: 08/10/2024 Results Created Date Observation Date Name Description Value Unit Range Abnormal Flag Note LastModifiedBy Organization Detail LastModifiedTime 05/03/20 24 05/03/2024 gluco se, finge rstic k, blood Blood Glucose: mg/dl 316 Not Available In-Off ice Order Internal Use Only DO Not Attach Compendium DO Not Attach Compendium, Do Not Delete/merge, [id number] 05/03/2024 15:03:06 05/12/20 24 05/12/2024 COMPR EHENS CLAIRE METAB OLIC PANEL sodium 136 mmol/ L 134-14 4 normal Not Available [facility] (Lab) [address], [place], [address], 05/12/2024 21:17:33 05/12/20 24 05/12/2024 COMPR EHENS CLAIRE METAB OLIC PANEL potassium 5.1 mmol/ L 3.5-5. 2 Not Available [facility] (Lab) [address], [place], [address], 05/12/2024 21:17:33 05/12/20 24 05/12/2024 COMPR EHENS CLAIRE METAB OLIC PANEL chloride 100 mmol/ L 96-106 normal Not Available [facility] (Lab) [address] [place], [address], 05/12/2024 21:17:33 05/12/20 24 05/12/2024 COMPR EHENS CLAIRE METAB OLIC PANEL carbon dioxide 25 mmol/ L 20-29 normal Not Available [facility] (Lab) [address] [place], [address], 05/12/2024 21:17:33 05/12/20 24 05/12/2024 COMPR EHENS CLAIRE METAB OLIC PANEL anion gap 17.0 mmol/ L Not Available [facility] (Lab) [address], [place], [address], 05/12/2024 21:17:33 05/12/20 24 05/12/2024 COMPR EHENS CLAIRE METAB OLIC PANEL blood urea nitrogen 22 mg/dL 8-27 normal Not Available [facility] (Lab) [address], [place], [address], 05/12/2024 21:17:33 05/12/20 24 05/12/2024 COMPR EHENS CLAIRE METAB OLIC PANEL creatinine 1.03 mg/dL 0.76-1 .27 normal Not Available [facility] (Lab) [address] [place], [address], 05/12/2024 21:17:33 05/12/20 24 05/12/2024 COMPR EHENS CLAIRE METAB OLIC PANEL glomerular filtration rate 62 mL/mi n/1 Not Available [facility] (Lab) [address] [place], [address], 05/12/2024 21:17:33 05/12/20 24 05/12/2024 COMPR EHENS CLAIRE METAB OLIC PANEL BUN creatinine ratio 22 10-28 normal Not Available [facility] (Lab) [address], [place], [address], 05/12/2024 21:17:33 05/12/20 24 05/12/2024 COMPR EHENS CLAIRE METAB OLIC PANEL glucose 284 mg/dL 70-99 high Not Available [facility] (Lab) [address], [place], [address], 05/12/2024 21:17:33 05/12/20 24 05/12/2024 COMPR EHENS CLAIRE METAB OLIC PANEL osmolality calculated 286 275-29 5 normal Not Available [facility] (Lab) [address], [place], [address], 05/12/2024 21:17:33 05/12/20 24 05/12/2024 COMPR EHENS CLAIRE METAB OLIC PANEL calcium 9.5 mg/dL 8.7-10 .3 normal Not Available [facility] (Lab) [address] [facility], [place], [address], 05/12/2024 21:17:33 05/12/20 24 05/12/2024 COMPR EHENS CLAIRE METAB OLIC PANEL bilirubin total 0.6 mg/dL 0.0-1. 2 normal Not Available [facility] (Lab) [address] [place], [address], 05/12/2024 21:17:33 05/12/20 24 05/12/2024 COMPR EHENS CLAIRE METAB OLIC PANEL aspartate amino transferase 15 IU/L 0-40 normal Not Available [facility] (Lab) [address] [place], [address], 05/12/2024 21:17:33 05/12/20 24 05/12/2024 COMPR EHENS CLAIRE METAB OLIC PANEL alanine aminotransfe rase 14 IU/L 0-32 normal Not Available [facility] (Lab) [address] [place], [address], 05/12/2024 21:17:33 05/12/20 24 05/12/2024 COMPR EHENS CLAIRE METAB OLIC PANEL total protein 7.1 g/dL 6.0-8. 5 normal Not Available [facility] (Lab) [address] [place], [address], 05/12/2024 21:17:33 05/12/20 24 05/12/2024 COMPR EHENS CLAIRE METAB OLIC PANEL albumin level 4.3 g/dL 3.8-4. 9 normal Not Available [facility] (Lab) [address], [place], [address], 05/12/2024 21:17:33 05/12/20 24 05/12/2024 COMPR EHENS CLAIRE METAB OLIC PANEL globulin 2.8 g/dL 1.5-4. 5 normal Not Available [facility] (Lab) [address], [place], [address], 05/12/2024 21:17:33 05/12/20 24 05/12/2024 COMPR EHENS CLAIRE METAB OLIC PANEL albumin globulin ratio 2.0 1.2-2. 2 normal Not Available [facility] (Lab) [address], [place], [address], 05/12/2024 21:17:33 05/12/20 24 05/12/2024 COMPR EHENS CLAIRE METAB OLIC PANEL alkaline phosphatase 149 IU/L 44-121 high Not Available [facility] (Lab) [address] [place], [address], 05/12/2024 21:17:33 05/12/20 24 05/12/2024 LIPID PANEL triglyceride s 255 mg/dL 0-149 high Not Available [facility] [address] [place], [address], 05/12/2024 21:17:34 05/12/20 24 05/12/2024 LIPID PANEL cholesterol 264 mg/dL 100-19 9 high Not Available [facility] (Lab) [address] [place], [address], 05/12/2024 21:17:34 05/12/20 24 05/12/2024 LIPID PANEL LDL cholesterol 180 mg/dL 0-99 high Not Available [facility] (Lab) [address] [place], [address], 05/12/2024 21:17:34 05/12/20 24 05/12/2024 LIPID PANEL VLDL cholesterol (calc) 51 mg/dL 5-40 high Not Available [facility] (Lab) [address] [place], [address], 05/12/2024 21:17:34 05/12/20 24 05/12/2024 LIPID PANEL HDL cholesterol 49 mg/dL 40-999 normal Not Available [facility] ([facility]) [address] [facility], [place], [address], 05/12/2024 21:17:34 05/12/20 24 05/12/2024 LIPID PANEL LDL HDL ratio 3.7 0-3.2 high Not Available [facility] (Lab) [address] [place], [address], 05/12/2024 21:17:34 05/12/20 24 05/12/2024 LIPID PANEL chol HDL ratio 5.0 mg/dL 0-4.4 high Not Available [facility] (Lab) [address] [place], [address], 05/12/2024 21:17:34 06/06/20 24 06/06/2024 gluco se, finge rstic k, blood Blood Glucose: mg/dl 397 Not Available In-Off ice Order Internal Use Only DO Not Attach Compendium DO Not Attach Compendium, Do Not Delete/merge, [id number] 06/06/2024 15:14:18 08/10/20 24 08/10/2024 gluco hiral best k, blood Blood Glucose: mg/dl 114 Not Available In-Off ice Order Internal Use Only DO Not Attach Compendium DO Not Attach Compendium, Do Not Delete/merge, [id number] 08/10/2024 11:20:23 04/11/20 24 04/11/2024 elect rocar diogr am No observ ation record ed. [facility] In-Office Order Internal Use Only DO Not Attach Compendium DO Not Attach Compendium, Do Not Delete/merge, [id number] 04/11/2024 17:30:34 04/11/20 elect rocar diogr am No observ ation record ed. [facility] Not Available 04/11 17:30:34 04/27/20 24 01/28/2024 US, echoc ardio gram, trans thora cic, compl ete, w/ color flow No observ ation record ed. [address], [place], [address], 04/27/2024 12:33:58 04/27/20 24 04/26/2024 US, echoc ardio gram, trans thora cic, compl ete, w/ color flow No observ ation record ed. [facility] Scheduling [address] [place], [address], 04/28/2024 07:54:31 04/27/20 24 04/26/2024 US, echoc ardio gram, trans thora cic, compl ete, w/ color flow No observ ation record ed. [facility] Scheduling [address] [facility], [place], [address], 05/02/2024 10:28:54 07/06/20 24 07/06/2024 pacem richard brush ion (PROC ) No observ ation record ed. [facility] [address] [address], [place], [address], 07/06/2024 13:54:11 07/06/20 24 03/04/2024 pacem richard check (PROC ) No observ ation record ed. lisa Not Available 07/21 14:04:43 07/06/20 24 07/06/2024 pacem richard inter rogat ion (PROC ) No observ ation record ed. [facility] [address], [place], [address], 07/21/2024 14:05:00 07/24/2007/23/2024 CT, brain , w/o contr ast No observ ation record ed. [address], [place], [address], 08/02/2024 14:12:13 07/24/20 24 07/23/2024 XR, chest , 2 view No observ ation record ed. [address], [place], [address], 08/02/2024 14:18:58 07/25/20 pacem richard inter rogat ion (PROC ) No observ ation record ed. [email or web address] [address], [place], [address], 07/25/2024 15:40:08 Result Notes None recorded. Problems Name Problem SNOMED Code Status Onset Date Resolution Date Notes Provider Name and Address Organization Details Recorded Time Cardiac pacemaker in situ 124433508 Active 2018 placed 12/23/17 (medtroni c) BESSIE MORA NP Attn: Sabine benton,[address] [place], [address] [place] [address] 3 10:47:22 Mitral valve regurgita tion 86037959 Active 2018 BESSIE MORA NP Attn: Sabine benton,[address] [place], [address], [place] [facility] 3 10:47:22 Essential hypertens ion 01375500 Active 2018 BESSIE MORA NP Attn: Sabine benton,[address] [facility], [place], [address], [place] [facility] 3 10:47:23 Myocardia l infarctio n 64882292 Active 201801/31/18, 04/2021 BESSIE MORA NP Attn: Sabine benton,[address] [facility], [place], [address], [place] [facility] 3 10:47:22 Restless legs 78161269 Active 2018 BESSIE MORA NP Attn: Sabine benton,[address] [facility], [place], [address], [place] [facility] 3 10:47:22 Sick sinus syndrome 08846735 Active 2019 BESSIE MORA NP Attn: Sabine benton,[address] [facility], [place], [address], [place] [facility] 3 10:47:22 History of myocardia l infarctio n 698784416 Active 2018 NSTEMI BESSIE MORA NP Attn: Sabine benton,[address] [facility], [place], [address], [place] [facility] 3 10:47:22 Coronary arteriosc lerosis 02610455 Active 2019 BESSIE MORA NP Attn: Sabine g,[address] [facility], [place], [address], [place] [facility] 3 10:47:23 Atriovent ricular block 143985625 Active 2019 S/P pacemaker BESSIE MORA NP Attn: Sabine benton,[address] [facility], [place], [address], [place] [facility] 3 10:47:22 Binge eating disorder 524659201 Active 2021 BESSIE MORA NP Attn: Accountin g,[address] [facility], [place], [address], [place] [facility] 3 10:47:22 Migraine 92095755 Active 2021 BESSIE MORA NP Attn: Accountin g,[address] [facility], [place], [address], [place] [facility] 3 10:47:22 Anxiety 90427819 Active BESSIE MORA NP Attn: Accountin g,[address] [facility], [place], [address], [place] [facility] 3 10:47:22 Hyperchol esterolem ia 75717074 Active BESSIE MORA NP Attn: Accountin g,[address] [facility], [place], [address], [place] [facility] 3 10:47:22 Periphera l nerve disease 603585252 Active BESSIE MORA NP Attn: Accountin g,[address] [facility], [place], [address], [place] [facility] 3 10:47:22 Gastroeso phageal reflux disease 302739522 Active BESSIE MORA NP Attn: Accountin g,[address] [facility], [place], [address], [place] [facility] 3 10:47:22 Type 2 diabetes mellitus 16757078 Active BESSIE MORA NP Attn: Accountin g,[address] [facility], [place], [address], [place] [facility] 3 10:47:22 Obesity 257364811 Active BESSIE MORA NP Attn: Accountin g,[address] 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, [place], [address], [facility] - [facility] 3 10:47:23 Problem Notes None recorded. Procedures Surgical History Date Name Laterality Status Provider Name and Address Organization Details Recorded Time 09/27/19 18 Date of Last Pap Smear completed Xavi Grover MA [facility] 09/27/2017 16:43:00 08/30/19 18 CABG completed LESLYE GARCIA NP [address], [place], [address], [facility] 07/17/2020 09:39:43 08/30/19 18 cardiac catheterization completed LESLYE GARCIA NP [address], [place], [address], [facility] 07/17/2020 09:40:05 08/30/19 05 Heart Surgery completed LESLYE GARCIA NP [address], [place], [address], [facility] 07/17/2020 09:41:16 Cardiac Surgery completed LESLYE Rodriguez NP [address], [place], [address], [facility] 07/17/2020 09:40:41 Pacemaker completed Adina Evans MA MD - [facility] 11/02/2014 12:02:30 Caesarean Section completed Kendal Meadows RN [facility] 05/31/2015 14:40:16 Imaging Results Imaging Date Name Status LastModified by Organization Details LastModified Time 04/11/2024 electrocardiogram completed MARGARITA In-Offi ce Order Internal Use Only DO Not Attach Compendium DO Not Attach Compendium, Do Not Delete/merge, [id number] 04/11/2024 17:30:34 04/11/2024 electrocardiogram completed [facility] Informa tion not available 04/11/2024 17:30:34 01/28/2024 US, echocardiogram, transthoracic, complete, w/ color flow completed [address], [address], 04/27/2024 12:33:58 04/26/2024 US, echocardiogram, transthoracic, complete, w/ color flow completed [facility] Scheduling [address] [place], [address], 04/28/2024 07:54:31 04/26/2024 US, echocardiogram, transthoracic, complete, w/ color flow completed [facility] Scheduling [address] [place], [address], 05/02/2024 10:28:54 07/06/2024 pacemaker interrogation (PROC) completed [facility] [address], [place], [address], 07/06/2024 13:54:11 03/04/2024 pacemaker check (PROC) completed [facility] Information not available 07/21/2024 14:04:43 07/06/2024 pacemaker interrogation (PROC) completed [facility] [address], [place], [address], 07/21/2024 14:05:00 07/23/2024 CT, brain, w/o contrast completed [address], [address], 08/02/2024 14:12:13 07/23/2024 XR, chest, 2 view completed [address], [address], 08/02/2024 14:18:58 07/25/2024 pacemaker interrogation (PROC) completed [facility] Cardiology [address] [place] [address], [place], [address], 07/25/2024 15:40:08 Procedure Notes None recorded. 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 Serial Number Lot Number Status Provider Name and Address Organization Details Recorded Time [employer] Y LESLYE GARCIA, PROCESSING REP [address], [place], [address], [facility] 07/17/2020 09:32:19 Allergies Allergen ID Allergen Name Allergen Category Reaction Reaction Severity Criticality Documentation Date Start Date Code Code System Note Provider Name and Address Organization Details Recorded Time 28393 Zithromax medicatio n vomiting severe Not available 11/02/201419637 4 RxNorm Not Available Not Available Not Available Medications Name Sig Start Date Stop Date Status Note LastModified by Organization Details LastModified Time amoxicillin 500 mg capsule Take 1 capsule every 8 hours by oral route for 10 days. 10/08 completed Not Available Not Available Not Available furosemide 40 mg tablet Take 1 tablet every day by oral route as needed for 30 days. 2023 active Not Available Not Available Not Avai lable fluconazole 100 mg tablet Take 1 tablet every day by oral route for 10 days. 09/10 completed Not Available Not Available Not Available atorvastati n 40 mg tablet Take 1 tablet every day by oral route. 06/02 completed Not Available Not Available Not Available buspirone 5 mg tablet Take 1 tablet every day by oral route for 30 days. 06/14 completed Not Available Not Available Not Available metformin 500 mg tablet TAKE 1 TABLET BY MOUTH TWICE DAILY 09/20 completed Not Available Not Available Not Available atorvastati n 20 mg tablet TAKE 1 TABLET BY MOUTH AT BEDTIME 09/20 completed Not Available Not Available Not Available ropinirole 1 mg tablet TAKE 1 TABLET BY MOUTH THREE TIMES DAILY 09/20 completed Not Available Not Available Not Available clindamycin HCl 300 mg capsule TAKE 1 CAPSULE BY MOUTH EVERY 6 HOURS 12/22 completed Not Available Not Available Not Available polyethylen e glycol 3350 17 gram oral powder packet 06/14 completed Not Available Not Available Not Available azithromyci n 250 mg tablet 03/25 completed Not Available Not Available Not Available nystatin 100,000 unit/gram topical ointment APPLY EXTERNALL Y TO THE AFFECTED AREA TWICE DAILY 12/22 completed Not Available Not Available Not Available fluconazole 150 mg tablet TAKE 1 TABLET BY MOUTH NOW. MAXIMUM. REPEAT FOR 1 TIME AFTER 72 HOURS IF NOT EFFECTIVE 05/18 completed Not Available Not Available Not Available benzonatate 200 mg capsule TAKE 1 CAPSULE BY MOUTH THREE TIMES DAILY FOR 7 DAYS NEEDED 05/18 completed Not Available Not Available Not Available citalopram 10 mg tablet TAKE 1 TABLET BY MOUTH EVERY DAY active Not Available Not Available No t Available hydrocodone 5 mg-acetamin ophen 325 mg tablet Take 1 tablet twice a day by oral route. 09/10 completed Not Available Not Available Not Available Nystop 100,000 unit/gram topical powder APPLY TO THE AFFECTED AREA(S) BY TOPICAL ROUTE 2 TIMES PER DAY 10/08 completed Not Available Not Available Not Available prednisone 20 mg tablet TAKE 3 TABLETS BY MOUTH EVERY DAY FOR 5 DAYS 07/22 completed Not Available Not Available Not Available gabapentin 400 mg capsule Take 1 capsule 3 times a day by oral route for 30 days. 09/20 completed Not Available Not Available Not Available miconazole nitrate 2 % vaginal cream 09/20 completed Not Available Not Available Not Available metformin 850 mg tablet Take 1 tablet twice a day by oral route for 30 days. active Not Available Not Available No t Available Debrox 6.5 % ear drops Instill 2 drops 4 times a day by otic route for 7 days. 09/10 completed Not Available Not Available Not Available clobetasol 0.05 % topical cream APPLY A THIN LAYER TOPICALLY TO THE AFFECTED AREA TWICE DAILY 12/22 completed Not Available Not Available Not Available acetaminoph en 300 mg-codeine 30 mg tablet Take 1 tablet(s) twice a day by oral route as needed for 30 days. 09/20 completed Not Available Not Available Not Available clopidogrel 75 mg tablet Take 1 tablet every day by oral route for 30 days. 04/11 completed Not Available Not Available Not Available ciprofloxac in 500 mg tablet Take 1 tablet every 12 hours by oral route for 7 days. 09/20 completed Not Available Not Available Not Available aspirin 81 mg tablet,rebecca yed release TAKE 1 TABLET BY MOUTH EVERY DAY active Not Available Not Available No t Available triamcinolo ne acetonide 0.1 % topical cream APPLY A THIN LAYER TO THE AFFECTED AREA(S) BY TOPICAL ROUTE 2 TIMES PER DAY 06/14 completed Not Available Not Available Not Available glimepiride 2 mg tablet Take 1 tablet every day by oral route. 09/10 completed Not Available Not Available Not Available amoxicillin 875 mg tablet active Not Available Not Available Not Available citalopram 20 mg tablet TAKE 1 TABLET BY MOUTH EVERY DAY NEEDED 12/22 completed Not Available Not Available Not Available amitriptyli ne 25 mg tablet Take 1 tablet every day by oral route at bedtime for 30 days. 09/10 completed Not Available Not Available Not Available magnesium oxide 400 mg (241.3 mg magnesium) tablet TAKE 1 TABLET BY MOUTH EVERY DAY 07/08 completed Not Available Not Available Not Available lorazepam 0.5 mg tablet take one tablet by mouth daily 06/14 completed Not Available Not Available Not Available triamcinolo ne acetonide 0.025 % topical cream APPLY TOPICALLY TO THE AFFECTED AREA TWICE DAILY 07/08 completed Not Available Not Available Not Available hydrocortis one-acetic acid 1 %-2 % ear drops INSTILL 2 DROPS TO AFFECTED EAR FOUR TIMES DAILY FOR 10 DAYS active Not Available Not Available No t Available ropinirole 2 mg tablet Take 1 tablet twice a day by oral route for 30 days. active Not Available Not Available No t Available cephalexin 500 mg capsule TAKE 1 CAPSULE BY MOUTH EVERY 8 HOURS 07/08 completed Not Available Not Available Not Available pantoprazol e 40 mg tablet,rebecca yed release TAKE 1 TABLET BY MOUTH EVERY DAY active Not Available Not Available No t Available ferrous sulfate 325 mg (65 mg iron) tablet 11/21 completed Not Available Not Available Not Available triamcinolo ne acetonide 0.1 % topical ointment APPLY A THIN LAYER TO THE AFFECTED AREA(S) BY TOPICAL ROUTE 2 TIMES PER DAY (apply to groin area) 06/14 completed Not Available Not Available Not Available nystatin 100,000 unit/gram topical cream APPLY TO THE AFFECTED AREA(S) BY TOPICAL ROUTE 2 TIMES PER DAY 12/22 completed Not Available Not Available Not Available clotrimazol e-betametha sone 1 %-0.05 % topical cream Apply by topical route for 7 days. 07/08 completed Not Available Not Available Not Available lisinopril 10 mg tablet TAKE 1 TABLET BY MOUTH DAILY 09/20 completed Not Available Not Available Not Available glimepiride 4 mg tablet Take 1 tablet twice a day by oral route. active Not Available Not Available No t Available ibuprofen 200 mg tablet Take 3 tablets every day by oral route. active Not Available Not Available No t Available nitroglycer in 0.4 mg sublingual tablet DISSOLVE 1 TABLET UNDER THE TONGUE DIRECTED active Not Available Not Available No t Available gabapentin 300 mg capsule TAKE 1 CAPSULE BY MOUTH THREE TIMES DAILY 06/14 completed Not Available Not Available Not Available omeprazole 20 mg capsule,del ayed release TAKE ONE CAPSULE BY MOUTH EVERY DAY 01/10 completed Not Available Not Available Not Available hydrocortis one 2.5 % topical cream APPLY A THIN LAYER TO THE AFFECTED AREA(S) BY TOPICAL ROUTE 2 TIMES PER DAY 04/11 completed Not Available Not Available Not Available montelukast 10 mg tablet TAKE 1 TABLET BY MOUTH EVERY DAY NEEDED 09/20 completed Not Available Not Available Not Available alcohol swabs USE DIRECTED TO CHECK BLOOD SUGAR THREE TIMES DAILY active Not Available Not Available No t Available lisinopril 5 mg tablet Take 1 tablet every day by oral route. 05/19 completed Not Available Not Available Not Available Diabetic Tussin DM 10 mg-100 mg/5 mL oral liquid Take 10 mL 4 times a day by oral route as needed for 7 days. 06/14 completed Not Available Not Available Not Available furosemide 20 mg tablet 07/08 completed Not Available Not Available Not Available ergocalcife rol (vitamin D2) 1,250 mcg (50,000 unit) capsule Take 1 capsule every week by oral route for 30 days. 09/20 completed Not Available Not Available Not Available albuterol sulfate HFA 90 mcg/actuati on aerosol inhaler INHALE 2 PUFFS BY MOUTH EVERY 4 HOURS NEEDED 12/22 completed Not Available Not Available Not Available ipratropium bromide 42 mcg (0.06 %) nasal spray [place] 2 sprays 3 times a day by intranasa l route. 06/14 completed Not Available Not Available Not Available cefdinir 300 mg capsule 09/20 completed Not Available Not Available Not Available fluticasone propionate 50 mcg/actuati on nasal spray,suspe nsion [place] 1 spray every day by intranasa l route. active Not Available Not Available No t Available clotrimazol e 1 % topical cream APPLY TO THE AFFECTED AND SURROUNDI NG AREAS OF SKIN BY TOPICAL ROUTE 2 TIMES PER DAY IN THE MORNING AND EVENING 06/14 completed Not Available Not Available Not Available lisinopril 2.5 mg tablet Take 1 tablet every day by oral route. active Not Available Not Available No t Available amoxicillin 875 mg-potassiu m clavulanate 125 mg tablet Take 1 tablet every 12 hours by oral route for 10 days. active Not Available Not Available No t Available amoxicillin 500 mg-potassiu m clavulanate 125 mg tablet 10/08 completed Not Available Not Available Not Available Tylenol Extra Strength 500 mg tablet Take 2 tablets every 12 hours by oral route as needed for 30 days. 2022 active Not Available Not Available Not Avai lable erythromyci n 250 mg capsule,del ayed release 11/06 completed Not Available Not Available Not Available Dex4 Glucose 4 gram chewable tablet Take by oral route. 06/14 completed Not Available Not Available Not Available Cough Syrup DM 10 mg-100 mg/5 mL 03/25 completed Not Available Not Available Not Available Antifungal (tolnaftate ) 1 % topical powder 11/21 completed Not Available Not Available Not Available Arthritis Pain Relief (capsaicin) 0.075 % topical cream APPLY TO THE AFFECTED AREA(S) BY TOPICAL ROUTE 3 TIMES PER DAY PRN active Not Available Not Available No t Available Asprin Ec Low Dose 81 mg tablet,rebecca yed release Take 1 tablet every day by oral route. 06/14 completed Not Available Not Available Not Available ezetimibe 10 mg tablet Take 1 tablet every day by oral route for 90 days. active Not Available Not Available No t Available ciprofloxac in 0.3 %-dexametha sone 0.1 % ear drops,suspe nsion SHAKE LIQUID AND INSTILL 4 DROPS TO RIGHT EAR EVERY 12 HOURS FOR 7 DAYS 05/03 completed Not Available Not Available Not Available rosuvastati n 20 mg tablet Take 1 tablet every day by oral route for 90 days. 05/19 completed Not Available Not Available Not Available rosuvastati n 40 mg tablet Take 1 tablet every day by oral route for 90 days. active Not Available Not Available No t Available metoprolol tartrate 25 mg tablet TAKE 1 TABLET BY MOUTH TWICE DAILY active Not Available Not Available No t Available topiramate 50 mg tablet Take 1 tablet every day by oral route for 30 days. 12/22 completed Not Available Not Available Not Available nitrofurant oin monohydrate /macrocryst als 100 mg capsule TAKE 1 CAPSULE BY MOUTH EVERY 12 HOURS WITH FOOD FOR 5 DAYS 04/11 completed Not Available Not Available Not Available chlorhexidi ne gluconate 0.12 % mouthwash RINSE MOUTH TWICE DAILY FOR 14 DAYS DIRECTED 07/08 completed Not Available Not Available Not Available fluticasone propionate 06/14 completed Not Available Not Available Not Available Levemir U-100 Insulin 100 unit/mL subcutaneou s solution Inject 35 units every day by subcutane ous route at bedtime for 30 days. 05/22 completed Not Available Not Available Not Available calcipotrie ne-betameth asone 0.005 %-0.064 % topical ointment Apply by topical route for 30 days. active Not Available Not Available No t Available Januvia 100 mg tablet TAKE 1 TABLET BY MOUTH EVERY DAY active Not Available Not Available No t Available Symbicort 80 mcg-4.5 mcg/actuati on HFA aerosol inhaler INHALE 2 PUFFS BY MOUTH TWICE DAILY 07/08 completed Not Available Not Available Not Available omeprazole 20 mg tablet,rebecca yed release TAKE 1 TABLET BY MOUTH EVERY DAY 01/10 completed Not Available Not Available Not Available Calmoseptin e 0.44 %-20.6 % topical ointment Apply 1 applicati on 3 times a day by topical route for 30 days. 07/08 completed Not Available Not Available Not Available Vitamin D3 50 mcg (2,000 unit) capsule Take 1 capsule every day by oral route. 2022 active Not Available Not Available Not Avai lable OneTouch Verio test strips TEST THREE TIMES DAILY 07/22 completed Not Available Not Available Not Available TRUEplus Insulin 1 mL 31 gauge x 5/16 syringe 07/22 completed Not Available Not Available Not Available Allergy Relief (cetirizine ) 10 mg capsule Take by oral route. active Not Available Not Available No t Available potassium chloride ER 20 mEq tablet,exte nded release TAKE 1 TABLET BY MOUTH DAILY 04/11 completed Not Available Not Available Not Available Metamucil (with sugar) 3.4 gram oral powder packet Take by oral route. 06/14 completed Not Available Not Available Not Available Jardiance 10 mg tablet 10/08 completed Not Available Not Available Not Available OneTouch Verio Flex Meter USE DIRECTED 07/22 completed Not Available Not Available Not Available Basaglstefania KwikPen U-100 Insulin 100 unit/mL (3 mL) subcutaneou s ADMINISTE R 45 UNITS UNDER THE SKIN AT BEDTIME active Not Available Not Available No t Available TRUEplus Pen Needle 31 gauge x 5/16 USE DAILY FOR ADMINISTR ATION OF INSULIN DIRECTED active Not Available Not Available No t Available TRUEplus Pen Needle 31 gauge x 1/4 active Not Available Not Available Not Available TRUEplus Pen Needle 31 gauge x 3/16 USE TWICE DAILY DIRECTED active Not Available Not Available No t Available magnesium 400 mg (as magnesium oxide) tablet TAKE 1 TABLET BY MOUTH EVERY DAY 12/22 completed Not Available Not Available Not Available OneTouch Delica Plus Lancet 33 gauge TEST THREE TIMES DAILY 07/22 completed Not Available Not Available Not Available Vitals Date Recorded Body height Body mass index (BMI) Body weight Respiratory rate Oxygen saturation Oxygen saturation in Arterial blood by Pulse oximetry Heart rate Body temperature Systolic blood pressure Diastolic blood pressure Provider Name and Address Organization Details Last Updated DateTime 4 154.94 cm 31.9 kg/m2 86720.1 1 g 18 /min 95 % 95 % 65 /min 97.7 [degF] 111 mm[Hg] 72 mm[Hg] Noreen Oseguera [place] - [facility] 4 15:00:41 Date Recorded Body height Body mass index (BMI) Body weight Oxygen saturation Oxygen saturation in Arterial blood by Pulse oximetry Heart rate Systolic blood pressure Diastolic blood pressure Provider Name and Address Organization Details Last Updated DateTime 4 154.94 cm 32.1 kg/m2 88857.3 4 g 91 % 91 % 64 /min 126 mm[Hg] 78 mm[Hg] Amber Galdamez MA [place] - [facility] 4 10:41:26 Date Recorded Body height Respiratory rate Body mass index (BMI) Body weight Body temperature Oxygen saturation Oxygen saturation in Arterial blood by Pulse oximetry Heart rate Systolic blood pressure Diastolic blood pressure Provider Name and Address Organization Details Last Updated DateTime 4 154.94 cm 18 /min 31.7 kg/m2 23542.5 2 g 97.7 [degF] 95 % 95 % 65 /min 119 mm[Hg] 76 mm[Hg] Noreen Castillooa [facility] 4 15:12:41 Date Recorded Body height Body mass index (BMI) Body weight Heart rate Oxygen saturation Oxygen saturation in Arterial blood by Pulse oximetry Systolic blood pressure Diastolic blood pressure Provider Name and Address Organization Details Last Updated DateTime 4 154.94 cm 32.1 kg/m2 33482.7 g 63 /min 95 % 95 % 124 mm[Hg] 82 mm[Hg] Amber Galdamez MA [facility] 4 14:12:40 Date Recorded Body height Body mass index (BMI) Body weight Respiratory rate Oxygen saturation Oxygen saturation in Arterial blood by Pulse oximetry Heart rate Systolic blood pressure Diastolic blood pressure Provider Name and Address Organization Details Last Updated DateTime 4 154.94 cm 32.1 kg/m2 90079.0 5 g 18 /min 97 % 97 % 65 /min 118 mm[Hg] 78 mm[Hg] Anju Evans MA [facility] 4 11:09:38 Social History Question Answer Notes LastModified by Organizat ion Details LastModified Time Tobacco Smoking Status Never Smoker Not Available [employer] 07/02/2020 03:39:31 Do You Have An Advance Directive? No Information not available 01/01/2023 What Is Your Level Of Alcohol Consumption? None [id number] Information not available 07/02/2020 Are You Blind Or Do You Have Difficulty Seeing? No Information not available 05/18/2022 What Is Your Level Of Caffeine Consumption? Moderate [id number] Information not available 07/02/2020 How Much Tobacco Do You Chew? None [id number] Information not available 07/02/2020 In The 14 Days Before Symptom Onset, Have You Had Close Contact With A Laboratory-confir med COVID-19 While That Case Was Ill? No Information not available 01/01/2023 In The 14 Days Before Symptom Onset, Have You Had Close Contact With A Person Who Is Under Investigation For COVID-19 While That Person Was Ill? No Information not available 01/01/2023 Have You Been To An Area Known To Be High Risk For COVID-19? No Information not available 01/01/2023 Are You Currently Employed? No Information not available 01/01/2023 Are You Deaf Or Do You Have Serious Difficulty Hearing? No Information not available 05/18/2022 What Type Of Diet Are You Following? REGULAR [id number] Information not available 07/02/2020 Do You Or Have You Ever Used E-cigarettes Or Vape? Never Used Electronic Cigarettes [id number] Information not available 07/02/2020 Education 12 Information no t available 11/06/2014 What Is The Highest Grade Or Level Of School You Have Completed Or The Highest Degree You Have Received? [id number] Information not available 01/01/2023 Are There Any Guns Present In Your Home? No [id number] Information not available 07/02/2020 Hard Of Hearing Or Deaf In One Or Both Ears? No Information not available 11/06/2014 Legally Blind In One Or Both Eyes? No Information no t available 11/06/2014 Marital Status Informatio n not available 11/06/2014 Do You Have A Medical Power Of Toll Collector? No Information not available 01/01/2023 What Was The Date Of Your Most Recent Tobacco Screening? 08/10/2024 [email or web address] Information not available 08/10/2024 Performs Monthly Self-breast Exam? No Information no t available 11/06/2014 Do You Use Your Seat Belt Or Car Seat Routinely? Yes Information not available 05/18/2022 Seat Belts Used Routinely Yes Information not available 11/06/2014 Smoke Alarm In Home Yes Information not available 11/06/2014 Do You Or Have You Ever Used Smokeless Tobacco? Never Used Smokeless Tobacco [id number] Information not available 07/02/2020 How Much Tobacco Do You Smoke? No [id number] Information not available 07/02/2020 General Stress Level High Information not available 11/06/2014 Do You Use Sunscreen Routinely? Yes [id number] Information not available 07/02/2020 Has Tobacco Cessation Counseling Been Provided? No [email or web address] Information not available 12/22/2022 On What Date Was Tobacco Cessation Counseling Provided? 02/03/2024 [email or web address] Information not available 02/03/2024 Do You Or Have You Ever Used Any Other Forms Of Tobacco Or Nicotine? No Information not available 05/18/2022 Sex: Female Functional Status Question Answer Note LastModified by Organizat ion Details LastModified Time What is your exercise level? Occasional [id number] Information not available 07/02/2020 Mental Status None recorded. Family History Relationship Description Onset Age of this Age Resolved Age Notes LastModified by Organization Details LastModified Time Unspecified Relation Coronary arterioscler osis Keenan Villarreal arent Not available 12/25/2015 12:51:42 Unspecified Relation Kidney disease Keenan Villarreal arent [email or web address] Not available 12/25/2015 12:51:42 Paternal Grandmother Hypertensive disorder rloar Not available 2019 09:38:28 Paternal Grandmother Hypercholest erolemia rloar Not available 2019 09:38:50 Paternal Grandmother Diabetes mellitus rloar Not available 2019 09:38:13 Father Hypertensive disorder rloar Not available 2019 09:38:42 Mother Hypercholest erolemia rloar Not available 2019 09:38:53 Mother Peripheral vascular disease rloar Not available 2019 09:39:11 Sister Diabetes mellitus rloar Not available 2019 09:39:16 Medical History Condition Response Coronary Artery Disease N Other N Atrial Fibrillation N High Blood Pressure Y Depression N COPD N Blood Clots N Anxiety Disorder Y Muscle, Joint, or Bone Problems N Acid Reflux (GERD) N Cancer N Stroke N High Cholesterol N Liver Disease N Headaches N Heart Problems Y Thyroid Problems N Kidney or Bladder Problems N GI Problems N Skin Problems N Anemia N Heart Attack ([place]) N Diabetes Y Seizures/Epilepsy N Congestive Heart Failure (CHF) Y Asthma N Allergies N GERD/Reflux Y Hepatitis N Heart Disease Y Heart Failure N Osteoporosis N Gynecological History Statement/Question Response Abnormal Pap N Sexually Active? Y Menses Monthly N STIs/STDs Y Date of Last Pap Smear 09/27/2017 Sexual Problems? N Age at Menarche 10 Current Control Method None Age at First Child 1 LMP Unknown Obstetrics History GPAL:G 1 P 1 0 0 1 Type Value Multiple Births 0 Full Term 1 Induced 0 Spontaneous 0 Premature 0 Living 1 Ectopics 0 Total 1 Immunizations Vaccine Type Date Status Note Provider Nam e and Address Organization Details Recorded Time Influenza, split virus, quadrivalent, preservative 1 completed Janine Campos MA null, MD - [facility] 05/22/2021 15:51:33 pneumococcal polysaccharide PPV23 1 completed Chris Fitzgerald MA null, MD - [facility] 07/23/2021 09:43:07 Influenza, split virus, quadrivalent, PF 3 completed BESSIE MORA NP Attn: Accounting,[address] [place], [address], [facility] 07/13/2023 07:37:59 Past Encounters Encounter ID Performer Location Encounter Start Date Encounter Closed Date Diagnosis/Indication Diagnosis SNOMED-CT Code Diagnosis ICD10 Code Diagnosis Note [id number] Elena Cavanaugh RN [facility] (Family Med) [address] [place] [address] [id number] 11/06/2014 13:33:35 11/06/2014 15:48:07 Anxiety 43960550 Type 2 richard betes mellitus 80157402 Gastroesop hageal reflux disease 133614665 Hypercholesterolemia 05663534 Obesity 901431522 Peripheral nerve disease [id number] [facility]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) [address] [place] [address] [phone] 03/27/2015 14:41:07 03/27/2015 16:18:47 High risk sexual behavior [id number] [facility] ([facility]) [address] [address] 8 05/31/2015 12:10:57 05/31/2015 15:36:02 Type 2 diabetes mellitus 12449112 E11.21 Obesity 502041560 E66.9 Peripheral nerve disease 434508192 G64 Gastroesop hageal reflux disease 096336283 K21.9 Hypercholesterolemia 136 27472 E78.0 Herpes simplex 08942868 B00.9 Anxiety 38400152 F41.1 Screening mammography 24 057665 Z12.31 [id number] Shell Duarte MD [facility] ([facility]) [address] [place] [address] 8 10/04/2015 14:17:54 10/04/2015 17:54:37 Anxiety 89625940 F41.1 Type 2 richard betes mellitus 59338620 E11.21 Hypercholesterolemia 136 51875 E78.0 Obesity 130249455 E66.9 [id number] Shell Duarte MD [facility] ([facility]) [address] [place] [address] 8 12/25/2015 12:12:42 12/25/2015 13:31:15 Type 2 diabetes mellitus 26175187 E11.21 Obesity 667781738 E66.9 Gastroesop hageal reflux disease 605474305 K21.9 [id number] Melody Meadows RN [facility] ([facility]) [address] [place] [address] 8 12/09/2016 11:26:24 12/29/2016 12:47:35 [id number] Shell Duarte MD [facility] ([facility]) [address] [place] [address] 8 12/18/2016 14:35:07 12/28/2016 16:11:27 Type 2 diabetes mellitus 87982687 E11.21 Z13.220 E66.9 K21.0 Z00.01 Peripheral nerve disease 414986071 G64 Allergic rhinitis 457294 04 J30.9 Essential hypertension 13529869 I10 E78.5 [id number] Roberto Palomo MD [facility]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 [id number] Shell Duarte MD [facility] ([facility]) [address] [place] [address] 8 09/10/2017 12:13:00 09/20/2017 16:37:48 Type 2 diabetes mellitus 00917849 K21.0 Peripheral nerve disease 836604501 G64 Obesity 216128879 E66.9 Osteoarthr itis of knee 040289297 M17.0 Eruption 141246423 R21 Right foot, dryness. 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) [address] [place] [address] 8 09/27/2017 15:46:44 10/06/2017 09:02:51 Gynecologic examination 91652772 Z01.419 hx iof irregular bleeding whileoverd ue removal of Mirena Candidal vulvovaginitis [id number] B37.3 [id number] Shell Duarte MD [facility] ([facility]) [address] [place] [address] 8 12/24/2017 12:25:49 12/30/2017 15:18:08 Type 2 diabetes mellitus 11072480 K21.0 E78.00 Z13.29 Z00.01 Obesity 687789961 E66.9 [id number] Shell Duarte MD [facility] ([facility]) [address] [place] [address] 03/18/2018 10:26:24 03/21/2018 12:21:45 Type 2 diabetes mellitus 44503615 K21.0 E78.00 Z13.29 Z00.01 Atopic dermatitis 502461 01 L20.9 Vitamin D deficiency 347 74991 E55.9 Sinusitis 58152518 J32.9 [id number] Shell Duarte MD [facility] ([facility]) [address] [place] [address] 07/11/2018 11:43:50 07/14/2018 15:35:07 Type 2 diabetes mellitus 90619361 K21.0 E78.00 Z13.29 Z00.01 Peripheral nerve disease 543928355 G64 Anxiety 40865401 F41.1 Vitamin D deficiency 347 62238 E55.9 [id number] Shell Duarte MD [facility] ([facility]) [address] [place] [address] 01/04/2019 14:20:22 01/05/2019 13:06:53 Type 2 diabetes mellitus 23957238 K21.0 E78.00 Z13.29 Z00.01 I10 E11.65 E55.9 Z68.32 R31.9 Restless legs 15158862 G 25.81 Peripheral nerve disease 220971868 G64 Upper resp iratory infection 56708676 J06.9 [id number] Shell Duarte MD [facility] ([facility]) [address] [place] [address] 8 06/14/2019 15:26:32 06/16/2019 12:52:58 Type 2 diabetes mellitus 78922945 K21.0 E78.00 Z13.29 Z00.01 I10 E11.65 E55.9 Z68.32 R31.9 Gastroesop hageal reflux disease 622079062 K21.9 [id number] MD Deirdre Osorio [facility] ([facility]) [address] [place] [address] 8 07/26/2019 15:34:08 07/28/2019 09:45:05 Type 2 diabetes mellitus 42723153 K21.0 E78.00 Z13.29 Z00.01 I10 E11.65 E55.9 Z68.32 R31.9 Acute sinusitis 89749017 J01.90 Restless legs 95198720 G 25.81 [id number] Charitylisset COSTA [facility]) [address] [place] [address] 8 09/20/2019 15:35:59 09/25/2019 15:09:52 Gastroesophageal reflux disease 454085908 K21.9 Essential hypertension 16428727 I10 Restless legs 66236880 G 25.81 Type 2 richard betes mellitus without complication 208491424 E11.9 Acute sinusitis 97766792 J01.90 Congestive heart failure 16675565 I50.9 [id number] [facility] [address] [place] [address] 8 11/22/2019 11:01:02 11/28/2019 11:47:31 Type 2 diabetes mellitus 10062051 E11.9 Acute otitis media 87397 03 H66.93 Restless legs 34676952 G 25.81 Gastroesop hageal reflux disease 844594434 K21.9 Iron defic iency anemia 00322970 D50.9 Anxiety 45548152 F41.9 Cardiac pa cemaker in situ 777851822 Z95.0 Candidiasis of vagina 72 594278 B37.3 Depression screening 171 515656 Z13.31 [id number] ANTOINE Woodruff [facility]) [address] [place] [address] 8 06/18/2020 09:34:25 06/19/2020 15:32:40 Acute sinusitis 80525762 J01.90 hydration and rest encouraged along with otc antihistam ineCOVID-1 9 informatio n provided; while testing highly encouraged Vaginitis 39741552 N76.0 no nu-swab; as pt is not on site dt pandemicif lacking resolution , will consider nu-swabkee p area clean and dry Candidiasis of skin 4988 3006 B37.2 keep area clean and dry Serum crea tinine above reference range 033400049 R79.89 BUN 29 Cr 1.2 as of 03/25nephro logy referral pending Screening for malignant neoplasm of colon 016331216 Z12.11 age 54, first colonoscop y Psoriasis 6512198 L40.9 luke warm water and moisturize areaprescr iption renewal Screening mammography 24 875787 Z12.31 pending results.wi ll tailor treatment accordingl y upon receipt of results. Anxiety 61882946 F41.9 [employer] Service Animal informatio n provided [phone] 24pt to fu accordingl y [id number] Charity COSTA [facility] ([facility]) [address] [place] [facility] [place] [address] 10/08/2020 13:52:22 10/15/2020 09:37:00 Type 2 diabetes mellitus 48714090 E11.9 Candidiasis of vagina 72 305318 B37.3 Viral syndrome 679797452 B34.9 Sleep apnea 11776827 G47 .30 Dental caries 95329313 K 02.9 referred to dental services for follow-up care Obesity 945662609 E66.9 Essential hypertension 23646871 I10 [id number] Charity COSTA [facility] ([facility]) [address] [place] [facility] [place] [address] 05/22/2021 14:13:58 05/30/2021 05:49:15 Type 2 diabetes mellitus 43123792 E11.9 Getting labs for diabetes [facility] e was also referred to a nutritioni st for help with diabetic qmdnQ0T: 11.1 (10/2019)G oal A1C less than {{7.0 7.5 8.0*}}Curr ent Therapy: long-actin g insulin 35 units at HS, glimepirid e 4 mg BID, and JanuviaSta tin: {{yes* no} } ..RITCHIE/ARB: {{yes* no} } ..Foot Exam: {{complete d* due}} ..Microalb umin: {{complete d* due}} ..Pneumova x 23: Declined today, received influenza vaccine todayEye Exam: {{negative positive due*}} .. Pt was counseled on a low carbohydra te diet to better manage diabetes. I also encouraged regular exercise of 30-60 minutes most days of the week. Pt was encouraged to get yearly diabetic eye exams as well, provided number for [facility] [phone] Visit: {{1 2 3* 4 5 6 7 8 9 10 11 12} }{{week(s) month(s)* }} Screening mammography 24 845502 Z12.31 Screening for malignant neoplasm of colon 035216393 Z12.11 Administra tion of influenza vaccine 36550239 Z23 Depression screening 171 900830 Z13.31 Obesity 006932397 E66.9 Myocardial infarction 22 111595 I21.9 Please follow-up with cardiology as directed [id number] Terence Rowe DO [facility]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) [address] [place] [address] 8 05/28/2021 13:57:40 05/29/2021 16:19:14 Gynecologic examination 12984110 Z01.871 [id number] Charity COSTA [facility] ([facility]) [address] [place] [address] 8 07/22/2021 15:52:43 07/23/2021 09:19:29 Acute sinusitis 80012173 J01.90 Obesity 967334230 E66.9 Administra tion of pneumococcal vaccine 42061812 Z23 Type 2 richard betes mellitus 60721342 E11.9 [id number] Charity COSTA [facility] ([facility]) [address] [place] [address] 09/30/2021 12:01:34 10/13/2021 05:54:45 Pain in right foot 7463556410 20993 M79.671 XR to r/o fracture or dislocatio n Type 2 richard betes mellitus 35418141 E11.9 Patient is non-compli ant with medication s or diet.A1C: 13.9 - todayGoal A1C less than {{7.0 7.5* 8.0}}Curr ent Therapy: long-actin g insulin 45 units at HS, glimepirid e 4 mg BID, Januvia 100 mgStatin: {{yes* no} } ..RITCHIE/ARB: {{yes* no} } ..Foot Exam: {{complete d* due}} ..Microalb umin: {{complete d* due}} ..Pneumova x 23: Last received ye Exam: {{negative positive due*}} .. Pt was counseled on a low carbohydra te diet to better manage diabetes. I also encouraged regular exercise of 30-60 minutes most days of the week. Pt was encouraged to get yearly diabetic eye exams as well, provided number for [facility] [phone] Visit: {{1* 2 3 4 5 6 7 8 9 10 11 12} }{{week(s) month(s)* }} Migraine 23120864 G43.90 9 Adding topiramate for trial of migraine relief Binge eating disorder 43 8407475 F50.81 Recommende d follow-up with and diabetes dietitan as directed Obesity 068730025 E66.9 [id number] CATARINA CACERES [facility] ([facility]) [address] [place] [address] 05/18/2022 15:33:16 05/19/2022 13:12:58 Type 2 diabetes mellitus 23915794 E11.9 Last A1C: 13.9 (09/2021). Repeated todayBG in clinic: 442Current Therapy: Insulin 45 units at bedtime, Januvia 100 mg, glimepirid e 4 mg BIDStatin: rosuvastat inACE/ARB: lisinopril Foot Exam: completedM icroalbumi n: obtained todayPneum ovax 23: 07/22/2021 Pt was counseled on low carbohydra te diet to better manage diabetes. We went discussed pt's diet at length and I made specific dietary recommenda tions. I also encouraged regular exercise of 30-60 minutes most days of the week. Pt was encouraged to get yearly diabetic eye exams as well. -Blood sugar in clinic 442. upon question, pt admits to poor compliance with insulin. Is taking 45 units daily, states many days she does not take it. Also admits to poor diet compliance , stating she had been eating a lot recently.- Discussed at length the importance of taking medication s daily as prescribed and following a diabetic diet. Will hold off on increasing insulin at this time given non-compli ance.-A1c ordered. CMP, lipids ordered. Microalbum in ordered.-R TC in [address] Grover or Bessie for follow up. Sick sinus syndrome 3608 3008 I49.5 Adult heal th examination 875629165 Z00.00 Hypercholesterolemia 136 93130 E78.00 Gastroesop hageal reflux disease 822880240 K21.9 Essential hypertension 74197790 I10 Pain in right heel 28808 30741 347858 M79.671 -Longstand ing history of R heel pain. Pain worse with activity. Denies worsening of pain in AM with first step. States she was supposed to have xrays several times but never completed. PE: piezogenic papules noted to R heel -Will refer to podiatry.- NSAIDS and ice as needed for pain. Impaired dentition 56547 4008 K03.9 -Dental pain x several weeks. Notes L ear pain, concerned for sinus infection. PE: no sinus ttp. Mild ttp diffusely along jaw line. EACs clear bilaterall y with normal TM bilaterall y. No signs of infection. Poor dentition. No oral abscess or erythema. 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 No oral infection on exam. Ear pain likely 2/2 dental pain. Mixed anxi ety and depressive disorder 266150446 F41.8 -Pt on citalopram 20 mg. Notes daily anxiety and depression . Notes history of binge eating disorder for which she has been recommende d to counseling several times. PHQ 9: 20 -Pt provided with informatio n regarding psychiatry and counseling services.- Will scheduled appt with both psychiatry and counseling [id number] BESSIE MORA NP [facility] ([facility]) [address] [place] [address] 06/02/2022 11:20:51 06/04/2022 08:24:58 Type 2 diabetes mellitus 65408896 E11.9 Discussed with patient the following: -Utilizing Mediterran brandon diet-Exerc ising 30-60 min daily-Paola toring blood glucose daily-In order to achieve A1C goal of <7, a fasting glucose of 80 to 130 mg/dL and a postprandi al glucose (90 to 120 minutes after a meal) less than 180 mg/dL.-Pt is ultimately in charge of health and needs to keep appointmen ts and notify office if blood glucose levels are out of range. Adherence to healthy diet, exercise and medication s is the garza to preventing /minimizin g kidney damage and other health issues. Essential hypertension 62126581 I10 The patient's blood pressure today is 124/76 in the office.Dis cussed with patient the goal of having a blood pressure of <140/90.Pt to monitor blood pressure at home and notify of >140/90 or <90/60.Edu cated on the risks of a heart attack, stroke, kidney damage, or additional issues if blood pressure is outside of recommende d ranges. Pt verbalized understand ing. Noncomplia nce with medication regimen 858111229 Z91.14 It was stressed to patient the importance of being compliant with recommenda tions by health care team. Hyperlipidemia 48879460 E78.5 For all individual s in whom lipid management is indicated, we suggest dietary modificati on as part of initial therapy. Additional lifestyle modificati ons, including weight loss and exercise, are also components of the initial comprehens claire approach to lipid management . For patients with dyslipidem ia, whether or not they are on concurrent lipid-lowe ring pharmacolo gic therapy, we encourage adherence with one of the following general dietary patterns known to improve serum lipids: Mediterran brandon diet Dietary Approaches to Stop Hypertensi on (DASH) diet Vegetarian (or other meat restricted ) diet Low-carboh ydrate diet Avoidance of trans fats Pt to start taking rosuvastat in as prescribed . Obesity 034049412 E66.9 [id number] BESSIE MORA NP [facility] ([facility]) [address] [place] [address] 12/22/2022 10:40:32 12/23/2022 09:55:45 Type 2 diabetes mellitus 75350617 E11.9 Last A1C:{{less than 7.0% 7-8% 8-9% great er than 9% 13.1#}} Goal A1C less than:{{7.0 %* 8.0%}}C urrent Therapy:{{ metformin sulfonylur ea TZD SGL T-2 DDP-4 GLP-1 RA long-ac ting insulin ra pid/short- acting insulin ja lit#}} {{metformi n sulfonyl urea TZD S GLT-2 DDP- 4 GLP-1 RA long-ac ting insulin ra pid/short- acting insulin}} {{metformi n sulfonyl urea TZD S GLT-2 DDP- 4 GLP-1 RA long-ac ting insulin ra pid/short- acting insulin}} {{metformi n sulfonyl urea TZD S GLT-2 DDP- 4 GLP-1 RA long-ac ting insulin ra pid/short- acting insulin}}S tatin:{{ye s no* decl ined due to adverse reaction/a llergy dec lined}}RITCHIE /ARB:{{yes no* no due to negative nephropath y screening contraindi cated decl ined due to adverse reaction/a llergy dec lined}}Marcel t Exam:{{com pleted in the past 12 months-neg ative comp leted in the past 12 months-pos itive comp leted in the past 12 months- result unknown du e*}}Nephro coty Screening: {{complete d in the past 12 months- negative c ompleted in the past 12 months- positive d ue*}}Pneum ovax 23:{{UTD D eclined No t given*}}Ey e Exam:{{com pleted in the last 12 months- negative c ompleted in the last 12 months- positive c ompleted per patient report due - recommende d annual dilated eye exam*}}Pat ient Education: healthy diet: {{yes no}} exercise: {{yes no}} weight loss: {{yes no}} foot care: {{yes no}} complicati ons of uncontroll ed diabetes: {{yes no}} medication compliance : {{yes no}} Next Visit: {{1* 2 3 4 5 6 7 8 9 10 11 12} } {{week(s)* month(s)} }Discussed with patient importance of going to the ER to lower her blood glucose levels. Pt is present with her mother who is going to take her to the ER. Howie hays back up with patient in the office upon discharge. Hypercholesterolemia 136 63712 E78.00 Mixed anxi ety and depressive disorder 147109507 F41.8 Essential hypertension 07038457 I10 The patient's blood pressure today is 124/76 in the office.Dis cussed with patient the goal of having a blood pressure of <140/90.Pt to monitor blood pressure at home and notify of >140/90 or <90/60.Edu cated on the risks of a heart attack, stroke, kidney damage, or additional issues if blood pressure is outside of recommende d ranges. Pt verbalized understand ing. At [facility] ed risk for cardiovascular event 592556182 Z91.89 Gastroesop hageal reflux disease 413907902 K21.9 Noncomplia nce with treatment 9836938 Z91.199 Explained to patient that it is not advised that she not following through with recommende d treatment for her diabetes, heart condition, or additional recommende d and prescribed medication s.Strongly advised patient to take all heart medication as prescribed by cardiology . Advised patient of the risk of DKA or organ damage due to elevated blood glucose levels. Pt advised to follow up with all specialist s and PCP. Vitamin D deficiency 347 61674 E55.9 [id number] Tobias Ying MD [facility] [address] [place] [address] 01/01/2023 10:34:24 01/05/2023 09:32:21 Presbyopia 15326532 H52.4 Type 2 richard betes mellitus without complication 146991972 E11.9 Diabetic c ataract of bilateral eyes 936037538 E11.36 [id number] RIA FERNANDEZ DPM [facility] [address] [place] [address] 01/01/2023 10:37:55 01/04/2023 07:58:37 Type 2 diabetes mellitus 22256207 E11.51 Patient educated on proper diabetic foot care and the importance of tight glycemic control in regards to the prevention of diabetic manifestat ions and symptomato logy in lower extremity. Explained to patient the importance of keeping interdigit al spaces dry, not walking bare foot, having supportive shoe gear, using moisturize r to skin on feet daily especially in winter months, and checking feet daily for any new lesions or areas suspicious of trauma infection or ulceration . Explained to patient to return to ED if any change in foot health associated with signs of systemic infection including but not limited to nausea, vomiting, fever. Bilateral atherosclerosis of arteries of lower limbs 2771631741 7444641 I70.203 Patient educated on risks and aggravatin g factors of PVD, including conservati ve treatment options such as a diet and exercise regimen to aid in slowing progressio n of vascular disease Tinea pedis 7602536 B35. 3 The patient was educated why and how the fungal infection evolved in their feet and the patient was given informatio n regarding how to prevent further infection. The patient was told to keep feet dry and change socks. The patient was told to be careful with old shoes and excessive sweating. The patient was educated regarding both OTC and prescripti on treatments . Rx Lotrisone Cream. Onychomyco sis of toenails 487626682 B35.1 Aseptic debridemen t of elongated thickened nails x 10 using sterile nippers, nails were debrided in length and thickness by 30% utilizing a nail nipper without incident. The patient was educated regarding all treatment options that include topical and oral antifungal treatments . I discussed the options of taking a sample of the nail to confirm diagnosis. Nail clippings were not sent for pathology analysis. The patient was educated why and how the fungal infection evolved in their feet and the patient was given informatio n regarding how to prevent further infection. The patient was told to keep feet dry and change socks. The patient was told to be careful with old shoes and excessive sweating. The patient was educated regarding both OTC and prescripti on treatments . Pain of to e of right foot 8804975524 87723 M79.674 Pain of to e of left foot 4781236665 87479 M79.517 [id number] [facility] ([facility] 104) [address] [place] [address] 07/08/2023 12:29:37 07/13/2023 15:34:02 Essential hypertension 45515212 I10 The patient's blood pressure today is 110/80 in the office.Dis cussed with patient the goal of having a blood pressure of <140/90.Pt to monitor blood pressure at home and notify of >140/90 or <90/60.Edu cated on the risks of a heart attack, stroke, kidney damage, or additional issues if blood pressure is outside of recommende d ranges. Pt verbalized understand ing. Type 2 richard betes mellitus 52519976 E11.9 Last A1C:{{less than 7.0% 7-8% 8-9% great er than 9% 13.1#}} Goal A1C less than:{{7.0 %* 8.0%}}C urrent Therapy:{{ metformin sulfonylur ea TZD SGL T-2 DDP-4 GLP-1 RA long-ac ting insulin ra pid/short- acting insulin ja lit#}} {{metformi n sulfonyl urea TZD S GLT-2 DDP- 4 GLP-1 RA long-ac ting insulin ra pid/short- acting insulin gl imepiride# }} {{metformi n sulfonyl urea TZD S GLT-2 DDP- 4 GLP-1 RA long-ac ting insulin ra pid/short- acting insulin}} {{metformi n sulfonyl urea TZD S GLT-2 DDP- 4 GLP-1 RA long-ac ting insulin ra pid/short- acting insulin}}S tatin:{{ye s* no decl ined due to adverse reaction/a llergy dec lined}}RITCHIE /ARB:{{yes * no no due to negative nephropath y screening contraindi cated decl ined due to adverse reaction/a llergy dec lined}}Marcel t Exam:{{com pleted in the past 12 months-neg ative* com pleted in the past 12 months-pos itive comp leted in the past 12 months- result unknown du e}}Nephrop athy Screening: {{complete d in the past 12 months- negative c ompleted in the past 12 months- positive d ue*}}Pneum ovax 23:{{UTD D eclined No t given*}}Ey e Exam:{{com pleted in the last 12 months- negative* completed in the last 12 months- positive c ompleted per patient report due - recommende d annual dilated eye exam}}Arlen ent Education: healthy diet: {{yes no}} exercise: {{yes no}} weight loss: {{yes no}} foot care: {{yes no}} complicati ons of uncontroll ed diabetes: {{yes no}} medication compliance : {{yes no}} Next Visit: {{1 2 3 4 5 6* 7 8 9 10 11 12} } {{week(s) month(s)*} } Screening for malignant neoplasm of colon 906451903 Z12.11 . Screening mammography of bilateral breasts 8526875841 96026 Z12.31 Vitamin D deficiency 347 26733 E55.9 Pain of le ft knee joint 7705361594 45283 M25.562 Will order xray imagingWil l notify of resultsWil l consider PT referral based on results. Active or passive immunization 220594666 Z23 Sleep disorder 89567635 G47.9 Plaque psoriasis 09 L40.0 [id number] BESSIE MORA NP [facility] ([facility]) [address] [place] [facility] [place] [address] 02/03/2024 11:53:36 02/07/2024 11:46:18 Essential hypertension 68986803 I10 The patient's blood pressure today is 110/80 in the office.Dis cussed with patient the goal of having a blood pressure of <140/90.Pt to monitor blood pressure at home and notify of >140/90 or <90/60.Edu cated on the risks of a heart attack, stroke, kidney damage, or additional issues if blood pressure is outside of recommende d ranges. Pt verbalized understand ing. Type 2 richard betes mellitus 67738775 E11.9 Last A1C:{{less than 7.0% 7-8% 8-9% great er than 9% 11.3#}} Goal A1C less than:{{7.0 %* 8.0%}}C urrent Therapy:{{ metformin sulfonylur ea TZD SGL T-2 DDP-4 GLP-1 RA long-ac ting insulin* r apid/short -acting insulin}} {{metformi n sulfonyl urea TZD S GLT-2 DDP- 4 GLP-1 RA long-ac ting insulin ra pid/short- acting insulin}} {{metformi n sulfonyl urea TZD S GLT-2 DDP- 4 GLP-1 RA long-ac ting insulin ra pid/short- acting insulin}} {{metformi n sulfonyl urea TZD S GLT-2 DDP- 4 GLP-1 RA long-ac ting insulin ra pid/short- acting insulin}}S tatin:{{ye s* no decl ined due to adverse reaction/a llergy dec lined}}RITCHIE /ARB:{{yes * no no due to negative nephropath y screening contraindi cated decl ined due to adverse reaction/a llergy dec lined}}Marcel t Exam:{{com pleted in the past 12 months-neg ative comp leted in the past 12 months-pos itive comp leted in the past 12 months- result unknown du e}}Nephrop athy Screening: {{complete d in the past 12 months- negative c ompleted in the past 12 months- positive d ue}}Pneumo vax 23:{{UTD D eclined No t given}}Eye Exam:{{com pleted in the last 12 months- negative c ompleted in the last 12 months- positive c ompleted per patient report due - recommende d annual dilated eye exam}}Arlen ent Education: healthy diet: {{yes no}} exercise: {{yes no}} weight loss: {{yes no}} foot care: {{yes no}} complicati ons of uncontroll ed diabetes: {{yes no}} medication compliance : {{yes no}} Next Visit: {{1* 2 3 4 5 6 7 8 9 10 11 12} } {{week(s) month(s)*} } Congestive heart failure 17753070 I50.9 Plan of care:-poppy mmended going to the ER based on examinatio n and pt cough that is present with orthopnea. -contacted Dr Sorto office to see about fitting patient into office today. Left VM with MA Obesity 000101820 E66.9 Pt to begin to engage in the following: -Healthy sleep hygiene (phone put away at night, lights out, set bedtime with at least 8 hours sleep)-Exe rcise 30-60 min daily-Make healthy diet choices (Mediterra nitin)-Albertina lyon only water or green tea [id number] Aden Wynn MD [facility] [place] [facility] [address] [place] [address] 04/11/2024 13:49:39 04/12/2024 11:20:07 Atherosclerosis of coronary artery without angina pectoris 4103046140 67757 I25.10 Cardiac pa tess in situ 111405295 Z95.0 Hyperlipidemia 61017796 E78.5 Type 2 richard betes mellitus without complication 455468820 E11.9 Essential hypertension 89339695 I10 Mitral merlin ve regurgitation 21305035 I34.0 [id number] BESSIE MORA NP [facility] ([facility]) [address] [place] [address] 05/03/2024 14:48:43 05/10/2024 08:49:22 Type 2 diabetes mellitus 11671239 E11.9 Last A1C:{{less than 7.0% 7-8% 8-9% great er than 9% 9.5#}}G oal A1C less than:{{7.0 %* 8.0%}}C urrent Therapy:{{ metformin sulfonylur ea TZD SGL T-2 DDP-4 GLP-1 RA long-ac ting insulin* r apid/short -acting insulin}} {{metformi n sulfonyl urea TZD S GLT-2 DDP- 4 GLP-1 RA long-ac ting insulin ra pid/short- acting insulin}} {{metformi n sulfonyl urea TZD S GLT-2 DDP- 4 GLP-1 RA long-ac ting insulin ra pid/short- acting insulin}} {{metformi n sulfonyl urea TZD S GLT-2 DDP- 4 GLP-1 RA long-ac ting insulin ra pid/short- acting insulin}}S tatin:{{ye s* no decl ined due to adverse reaction/a llergy dec lined}}RITCHIE /ARB:{{yes * no no due to negative nephropath y screening contraindi cated decl ined due to adverse reaction/a llergy dec lined}}Marcel t Exam:{{com pleted in the past 12 months-neg ative comp leted in the past 12 months-pos itive comp leted in the past 12 months- result unknown du e}}Nephrop athy Screening: {{complete d in the past 12 months- negative c ompleted in the past 12 months- positive d ue}}Pneumo vax 23:{{UTD D eclined No t given}}Eye Exam:{{com pleted in the last 12 months- negative c ompleted in the last 12 months- positive c ompleted per patient report due - recommende d annual dilated eye exam}}Arlen ent Education: healthy diet: {{yes no}} exercise: {{yes no}} weight loss: {{yes no}} foot care: {{yes no}} complicati ons of uncontroll ed diabetes: {{yes no}} medication compliance : {{yes no}} Next Visit: {{1* 2 3 4 5 6 7 8 9 10 11 12} } {{week(s) month(s)*} } Essential hypertension [id number] I10 The patient's blood pressure today is 111/72 in the office.Dis cussed with patient the goal of having a blood pressure of <140/90.Pt to monitor blood pressure at home and notify of >140/90 or <90/60.Edu cated on the risks of a heart attack, stroke, kidney damage, or additional issues if blood pressure is outside of recommende d ranges. Pt verbalized understand ing. Pain of bi lateral knee joints [id number] 49991 M25.561 M25.562 Plan of care:-Obta in xray imaging and consider additional referral based on labs.-Iona ge in physical therapy-Ap ply ice indirectly -Follow up in office for new or worsening of symptoms within two weeks. Restless legs [id number] G 25.81 Plan of care:-take ropinrole 2mg BID x 30 dyas. Screening for malignant neoplasm of colon [id number] Z12.11 . Psoriasis 0883386 L40.9 Plan of care:-Pt to utilize calcipotri radha once daily x 4 weeks.-fol low up with dermatolgo y if no improvemen t in symtpoms. Obesity [id number] E66.8 Pt to begin to engage in the following: -Healthy sleep hygiene (phone put away at night, lights out, set bedtime with at least 8 hours sleep)-Exe rcise 30-60 min daily-Make healthy diet choices (Inna taveras)-Albertina lyon only water or green tea [id number] Aden Wynn MD [facility] [address] [place] [address] 05/19/2024 10:25:52 05/24/2024 11:52:00 Atherosclerosis of coronary artery without angina pectoris [id number] 69137 I25.10 Cardiac pa tess in situ 956402802 Z95.0 Hyperlipidemia 93888131 E78.5 Type 2 richard ivis mellitus without complication 703800864 E11.9 Essential hypertension 26549163 I10 Mitral merlin ve regurgitation [id number] I34.0 [id number] BESSIE MORA, DELVIN W [facility] ([facility]) [address] [place] [address] 06/06/2024 14:51:50 06/09/2024 11:50:52 Essential hypertension 68005662 I10 The patient's blood pressure today is 119/76 in the office.Dis cussed with patient the goal of having a blood pressure of <140/90.Pt to monitor blood pressure at home and notify of >140/90 or <90/60.Edu cated on the risks of a heart attack, stroke, kidney damage, or additional issues if blood pressure is outside of recommende d ranges. Pt verbalized understand ing. Type 2 richard betes mellitus 47703022 E11.9 Last A1C:{{less than 7.0% 7-8% 8-9% great er than 9% 9.5#}}G oal A1C less than:{{7.0 %* 8.0%}}C urrent Therapy:{{ metformin sulfonylur ea TZD SGL T-2 DDP-4 GLP-1 RA long-ac ting insulin* r apid/short -acting insulin}} {{metformi n sulfonyl urea TZD S GLT-2 DDP- 4 GLP-1 RA long-ac ting insulin ra pid/short- acting insulin}} {{metformi n sulfonyl urea TZD S GLT-2 DDP- 4 GLP-1 RA long-ac ting insulin ra pid/short- acting insulin}} {{metformi n sulfonyl urea TZD S GLT-2 DDP- 4 GLP-1 RA long-ac ting insulin ra pid/short- acting insulin}}S tatin:{{ye s* no decl ined due to adverse reaction/a llergy dec lined}}RITCHIE /ARB:{{yes * no no due to negative nephropath y screening contraindi cated decl ined due to adverse reaction/a llergy dec lined}}Marcel t Exam:{{com pleted in the past 12 months-neg ative* com pleted in the past 12 months-pos itive comp leted in the past 12 months- result unknown du e}}Nephrop athy Screening: {{complete d in the past 12 months- negative c ompleted in the past 12 months- positive* due}}Pneum ovax 23:{{UTD D eclined No t given}}Eye Exam:{{com pleted in the last 12 months- negative c ompleted in the last 12 months- positive c ompleted per patient report due - recommende d annual dilated eye exam*}}Pat ient Education: healthy diet: {{yes no}} exercise: {{yes no}} weight loss: {{yes no}} foot care: {{yes no}} complicati ons of uncontroll ed diabetes: {{yes no}} medication compliance : {{yes no}} Next Visit: {{1* 2 3 4 5 6 7 8 9 10 11 12} } {{week(s) month(s)*} }Plan of care:-Advi sed patient to add a medication for better diabetes management . Pt declined at this time.-The patient to follow up with pharmacist .-Pt to go to ER if not improving after taking her medication s-Follow up in one month Acute otitis externa [id number] 12537 H60.509 Plan of care:-Util ize ear drops as directed-K eep ears clean and dry-Please notify if new or worsening of symptoms. Obesity 956132798 E66.9 Pt to begin to engage in the following: -Healthy sleep hygiene (phone put away at night, lights out, set bedtime with at least 8 hours sleep)-Exe rcise 30-60 min daily-Make healthy diet choices (Mediterra nitin)-Drin k only water or green tea [id number] Aden Wynn MD [facility] [place] [facility] [address] [facility] [address] 06/21/2024 14:05:17 06/23/2024 07:17:34 Atherosclerosis of coronary artery without angina pectoris [id number] 18350 I25.10 Cardiac pa tess in situ 464102758 Z95.0 Hyperlipidemia 34545140 E78.5 Type 2 richard betes mellitus without complication 160757803 E11.9 Essential hypertension 33067732 I10 Mitral merlin ve regurgitation 06217845 I34.0 [id number] BESSIE MORA, DELVIN [facility] ([facility]) [address] [place] [address] 08/10/2024 10:58:30 08/16/2024 09:45:12 Type 2 diabetes mellitus 68500090 E11.9 Last A1C:{{less than 7.0% 7-8% 8-9% great er than 9% 9.5#}}G oal A1C less than:{{7.0 %* 8.0%}}C urrent Therapy:{{ metformin sulfonylur ea TZD SGL T-2 DDP-4 GLP-1 RA long-ac ting insulin* r apid/short -acting insulin}} {{metformi n sulfonyl urea TZD S GLT-2 DDP- 4 GLP-1 RA long-ac ting insulin ra pid/short- acting insulin}} {{metformi n sulfonyl urea TZD S GLT-2 DDP- 4 GLP-1 RA long-ac ting insulin ra pid/short- acting insulin}} {{metformi n sulfonyl urea TZD S GLT-2 DDP- 4 GLP-1 RA long-ac ting insulin ra pid/short- acting insulin}}S tatin:{{ye s* no decl ined due to adverse reaction/a llergy dec lined}}RITCHIE /ARB:{{yes * no no due to negative nephropath y screening contraindi cated decl ined due to adverse reaction/a llergy dec lined}}Marcel t Exam:{{com pleted in the past 12 months-neg ative* com pleted in the past 12 months-pos itive comp leted in the past 12 months- result unknown du e}}Nephrop athy Screening: {{complete d in the past 12 months- negative c ompleted in the past 12 months- positive* due}}Pneum ovax 23:{{UTD D eclined No t given}}Eye Exam:{{com pleted in the last 12 months- negative c ompleted in the last 12 months- positive c ompleted per patient report due - recommende d annual dilated eye exam*}}Pat ient Education: healthy diet: {{yes no}} exercise: {{yes no}} weight loss: {{yes no}} foot care: {{yes no}} complicati ons of uncontroll ed diabetes: {{yes no}} medication compliance : {{yes no}} Next Visit: {{1* 2 3 4 5 6 7 8 9 10 11 12} } {{week(s) month(s)*} }Plan of care:-Advi sed patient to add a medication for better diabetes management . Pt declined at this time.-The patient to follow up with pharmacist .-Pt to go to ER if not improving after taking her medication s-Follow up in one month Neuropathy [id number] G62 .9 Plan of care:-use capsaicin PRN-mainta in healthy blood glucose levels-edu cated patient on diabetic neuropathy . Essential hypertension 16030950 I10 The patient's blood pressure today is 119/76 in the office.Dis cussed with patient the goal of having a blood pressure of <140/90.Pt to monitor blood pressure at home and notify of >140/90 or <90/60.Edu cated on the risks of a heart attack, stroke, kidney damage, or additional issues if blood pressure is outside of recommende d ranges. Pt verbalized understand ing. Adult heal th examination 255554644 Z00.00 Plan of care:-Disc ussed healthy living-Exe rcise daily-Eat a healthy diet with healthy balance of fruits and vegetables Prevention Last Flu: 07/08/23. Declined on 08/10/24[facility] Pneumonia: 07/22/21 Prevnar 24, Declined Prevnar 20 on 08/10/24[facility] COVID: Declined 08/10/24 Screening Tests:Last Colonoscop y: Referred to GI doctor on 05/03/24. Declined 08/10/24[facility] Mammogram: Referred on 08/10/24[facility] PSA: NA Screening mammography of bilateral breasts [id number] 29103 Z12.31 Acute sinusitis 68824361 J01.90 Plan of care:- Be sure to take full course of antibiotic s - Humidify air - Avoid irritants such as cigarette smoke - You may use over-the-c ounter Tylenol / ibuprofen for pain and fever control - Good hand washing - Increase fluid intake - Sleep with head of bed elevated to promote drainage - Call the office if symptoms worsen or do not improve by day 7 after treatment initiation History of depression 16 1226565 Z86.59 Plan of care:-PHQ9 2-Continue citalopram 10mg po qd-Needs letter for support dog. Advised to follow up with psychiatry -Referral placed to psychiatry -If SI/HI ideations occur, go to ER Obesity 273030021 E66.9 Pt to begin to engage in the following: -Healthy sleep hygiene (phone put away at night, lights out, set bedtime with at least 8 hours sleep)-Exe rcise 30-60 min daily-Make healthy diet choices (Mediterra taveras)-Drin k only water or green tea Health Concerns Section Related Observation LastModified by Organization Detai ls LastModified Time None Recorded Concern Status LastModified by Organization Details LastModified Time None Recorded Advance Directives Directive N: Payers Encounter Date Sequence Insurance Name Policy Number Policy Goldberg Covered Member ID Goldberg Member ID Guarantor Name 05/03/2024 1 [facility] (MEDICAID HMO) [id number] Marlys Fredi [id number] Marlys [place] 05/19/2024 1 [employer] [facility] [place] (MEDICAID HMO) [id number] Marlys [place] [id number] Marlys Fredi 06/06/2024 1 [employer] [facility] [facility] [place] ([place] [id number] Marlys [place] [id number] Marlys Fredi 06/21/2024 1 [employer] [facility] [place] [id number] Marlys Fredi [id number] Marlys Fredi 08/10/2024 1 [facility] (MEDICAID HMO) [id number] 0003 Marlys [place] [id number] Marlys Fredi Notes Date Note Type Note Provider Name and Address Organization Details Recorded Time 05/03/2024 text/html The patient pres ents to the office for a routine office visit. She has a hx of DM2, HTN, bilateral knee joint pain, restless legs, and psoriasis. She denies additional symptoms or concerns. BESSIE MORA NP Attn: [address] [facility], [place], [address], [place] [facility] 05/09/2024 10:04:32 05/19/2024 text/html 58-year-old fema gabriele who has a history of congenital heart disease status post either atrial septal or ventricular septal repair at the age of 38. She has a has a permanent pacemaker. She also has known history of coronary artery disease she has a cardiac catheterization done in 2020 at that time diagonal 1 mid totally occluded. She had moderate disease in left PDA. At that time she also has mitral regurgitation and mildly impaired left ventricular systolic function. She had an echocardiogram in June of 2022 at that time ejection fraction was 50-55%. There was a grade 1 diastolic dysfunction. There was moderate to severe mitral regurgitation. She has a history of abdominal pacemaker which was placed at the time of her surgery. There is no recent follow-up on her pacemaker age of this pacemaker is also unknown.She is complaining of dyspnea on exertion. She has no orthopnea, paroxysmal nocturnal dyspnea or edema of lower extremities. She denies chest pain. She has no palpitation, dizziness light headedness or syncope. May 19, 2024: 58-year-old female who has a history of coronary artery disease, status post permanent pacemaker placement last pacemaker apparently was done in November of [address] Burciaga at [facility] at that time she received [place] scientific pacemaker. I will try to obtain records and schedule her for pacemaker check. Previously she had a Medtronic pacemaker battery pack was replaced by Dr. Garg in 2012. LABS:05/12/24:triglyce rides 255, cholesterol 264, LDL 180, HDL 49, sodium 136, K+ 5.1, BUN 22, eGFR 62,creatinine 1.03, glucose 284, calcium 9.5, ast 15, alt 148/10/23:a1c 9.511/05/22: glucose 74, BUN 12, creatinine 1.00, K+ 4.6, ast 17, alt 13, A1C 11.3 CARDIAC TESTING:ECHO 04/26/24:Normal left ventricular size and systolic function. LV ejection fraction, visually, is 60 65%. Left ventricular diastolic parameters are consistent with severe (Grade III) diastolic dysfunction (restrictive physiology). Moderate calcification. With restricted motion of anterior and posterior leaflets. There is mild mitral valve regurgitation. The peak transmitral gradient is 17 mmHg. The mean gradient transmiral gradient is 6 mmHg. No significant aortic stenosis or insufficiency. Aortic valve not well visualized. Normal tricuspid valve appearance and function. There is mild to moderate tricuspid regurgitation. The estimated right ventricular systolic function is 64 mmHg. Estimated pulmonary artery systolic pressure is consistent with severe pulmonary hypertension (>60mmHg). STRESS ECHO 07/08/22:Left ventricular systolic function is normal, estimated at 50-55%. There is moderately increased left ventricular wall thickness. Left ventricular septal wall motion is abnormal with septal motion related so pacing. The left ventricular diastolic function is grade I diastolic dysfunction. Right ventricular systolic function is normal. The mitral valve has thickened leaflets. There is moderate to severe mitral valve regurgitation. There is mild tricuspid valve regurgitation. CATH 05/12/21:Coronary artery disease with chronic total occlusion of the diagonal branch of the LAD in its mid portion which was previously stented in the remote past and is known to be a chronically total occluded area. Moderate 70% stenosis in the small left PDA. Non diseased non dominant RCA. 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 Lexiscan 11/07/12:No scintigraphic evidence of reversible ischemia or infarction. Normal left ventricular size and systolic function. Aden Wynn MD Attn: Accounting[address] [place], [address], [facility] 05/19/2024 11:25:59 06/06/2024 text/html The patient pres ents to the office for a routine office visit. She has a hx of HTN and DM2. She is here for follow up on management. She also endorses ongoing itching in her bilateral ears. She denies additional symptoms or concerns. BESSIE MORA NP Attn: Accounting[address] [place], [address], [facility] 06/08/2024 08:38:13 06/21/2024 text/html 58-year-old fema gabriele who has a history of congenital heart disease status post either atrial septal or ventricular septal repair at the age of 38. She has a has a permanent pacemaker. She also has known history of coronary artery disease she has a cardiac catheterization done in 2020 at that time diagonal 1 mid totally occluded. She had moderate disease in left PDA. At that time she also has mitral regurgitation and mildly impaired left ventricular systolic function. She had an echocardiogram in June of 2022 at that time ejection fraction was 50-55%. There was a grade 1 diastolic dysfunction. There was moderate to severe mitral regurgitation. She has a history of abdominal pacemaker which was placed at the time of her surgery. There is no recent follow-up on her pacemaker age of this pacemaker is also unknown.She is complaining of dyspnea on exertion. She has no orthopnea, paroxysmal nocturnal dyspnea or edema of lower extremities. She denies chest pain. She has no palpitation, dizziness light headedness or syncope. May 19, 2024:58-year-old female who has a history of coronary artery disease, status post permanent pacemaker placement last pacemaker apparently was done in November of [address] Burciaga at [facility] at that time she received [place] scientific pacemaker. I will try to obtain records and schedule her for pacemaker check. Previously she had a Medtronic pacemaker battery pack was replaced by Dr. Garg in 2012. June 21, 2024: She denies complaints of chest pain tightness and pressure. She admits for fatigue. She has no orthopnea and paroxysmal nocturnal dyspnea. I attempted to make an arrangement for pacemaker check at [facility] and [facility] but unable to schedule her as there has a poor cooperation at those places I will try to set her up for remote pacemaker check with my office. I started her on Crestor 40 mg daily along with Zetia 10 mg daily which he is tolerating well. LABS:05/12/24:triglyce rides 255, cholesterol 264, LDL 180, HDL 49, sodium 136, K+ 5.1, BUN 22, eGFR 62,creatinine 1.03, glucose 284, calcium 9.5, ast 15, alt 148/10/23:a1c 9./05/22: glucose 74, BUN 12, creatinine 1.00, K+ 4.6, ast 17, alt 13, A1C 11.3 CARDIAC TESTING:ECHO 04/26/24:Normal left ventricular size and systolic function. LV ejection fraction, visually, is 60 65%. Left ventricular diastolic parameters are consistent with severe (Grade III) diastolic dysfunction (restrictive physiology). Moderate calcification. With restricted motion of anterior and posterior leaflets. There is mild mitral valve regurgitation. The peak transmitral gradient is 17 mmHg. The mean gradient transmiral gradient is 6 mmHg. No significant aortic stenosis or insufficiency. Aortic valve not well visualized. Normal tricuspid valve appearance and function. There is mild to moderate tricuspid regurgitation. The estimated right ventricular systolic function is 64 mmHg. Estimated pulmonary artery systolic pressure is consistent with severe pulmonary hypertension (>60mmHg). STRESS ECHO 07/08/22:Left ventricular systolic function is normal, estimated at 50-55%. There is moderately increased left ventricular wall thickness. Left ventricular septal wall motion is abnormal with septal motion related so pacing. The left ventricular diastolic function is grade I diastolic dysfunction. Right ventricular systolic function is normal. The mitral valve has thickened leaflets. There is moderate to severe mitral valve regurgitation. There is mild tricuspid valve regurgitation. CATH 05/12/21:Coronary artery disease with chronic total occlusion of the diagonal branch of the LAD in its mid portion which was previously stented in the remote past and is known to be a chronically total occluded area. Moderate 70% stenosis in the small left PDA. Non diseased non dominant RCA. 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 Lexiscan 11/07/12:No scintigraphic evidence of reversible ischemia or infarction. Normal left ventricular size and systolic function. Aden Wynn MD Attn: Accounting[address] [place], [address], [facility] 06/21/2024 14:57:16 08/10/2024 text/html The patient pres ents to the office for a routine visit. She has a history of nasal congestion and sinus pressure x 2 weeks. She has a history of type 2 diabetes, neuropathy, hypertension, and well-controlled depression. She would like a letter for support today. She does not actively see psychiatry. She denies additional symptoms or concerns. BESSIE MORA NP Attn: Accounting[address] [place], [address], [facility] 08/10/2024 11:36:30 OBGyn Episode No OBEpisode recorded.
[2024-10-22] MEDS: MAGNESIUM SULF 1 GM/D5W 100 ML 1 GM/100 ML BAG IVPB (01:14)
--- NOTE | 2024-10-22 01:28 | ED_ITS ---
HPI - Chest Pain General Chief Complaint: Chest Pain Stated Complaint: chest pain Time Seen by Provider: 10/22/24 00:30 History of Present Illness HPI narrative: Patient is 58-year-old female who presents emergency department this evening with flu-like symptoms. Patient states that she woke up just generally not feeling well, stating that she has body aches all over her body, complaining of chest pain, shortness of breath, and feeling anxious. Symptoms started over 12 hours ago. Patient is that she has been more stress lately as she is watching her granddaughter. Recently had a pacemaker placed at [place]. Denies any nausea vomiting or diarrhea. No additional symptoms or concerns at this time. Related Data Home Medications ?Medication ?Instructions ?Recorded ?Confirmed ?Last Taken ?Type aspirin 81 mg tablet,delayed 81 mg PO DAILY 07/05/19 01/28/24 01/26/24 History release (Adult Low Dose Aspirin) citalopram 20 mg tablet 10 mg PO DAILY 07/05/19 01/28/24 01/26/24 History clopidogrel 75 mg tablet (Plavix) 75 mg PO DAILY 07/05/19 01/28/24 01/26/24 History nitroglycerin 0.4 mg sublingual 0.4 mg sublingual Q5-15M PRN Chest 07/05/19 01/28/24 Unknown History tablet (Nitrostat) Pain pantoprazole 40 mg tablet,delayed 40 mg PO DAILY 07/05/19 01/28/24 01/26/24 History release glimepiride 4 mg tablet 4 mg PO BID 08/20/19 01/28/24 01/26/24 History metoprolol tartrate 25 mg tablet 25 mg PO BID 10/12/19 01/28/24 01/26/24 History rosuvastatin 20 mg tablet 20 mg PO DAILY 08/03/20 01/28/24 01/26/24 History insulin glargine 100 unit/mL (3 45 unit subcut HS 07/08/22 01/28/24 01/28/24 05:30 History mL) subcutaneous pen (Basaglar KwikPen U-100 Insulin) sitagliptin phosphate 100 mg 100 mg PO DAILY 07/08/22 01/28/24 01/26/24 History tablet (Januvia) lisinopril 5 mg tablet 2.5 mg PO DAILY 01/28/24 01/28/24 01/26/24 History ezetimibe 10 mg tablet mg 06/06/24 Unknown History Allergies Allergy/AdvReac Type Severity Reaction Status Date / Time azithromycin AdvReac Severe Gastrointestinal Verified 07/23/24 16:31 Upset diphenhydramine (From AdvReac Palpitation Verified 07/23/24 16:31 Benadryl) s Review of Systems 2 Review of Systems: All systems are reviewed and are negative unless stated otherwise in the HPI. [facility] Past Medical History Medical History Peripheral neuropathy Coronary artery disease (~11/2017) Cardiac catheterization per Dr. Montalvo demonstrated distal 1st diagonal vessel total occlusion status post angioplasty and stent placement. Eczema Gastroesophageal reflux disease Vitamin D deficiency Depression with anxiety Restless leg syndrome Osteoarthritis Diabetic peripheral neuropathy AV block Status post atrial pacemaker insertion. Valvular heart disease Status post mitral valve repair. [facility] September 18, 2019 showed moderate to severe mitral valve calcification with decreased movement and evidence of moderate mitral valve regurgitation. Septal defect Patient on certain whether this was an ASD or VSD repair, done at the age of 39. Hyperlipidemia Hypertension Insulin dependent type 2 diabetes mellitus Hemoglobin A1c was 9.8% in July 2019. Seasonal allergies Anemia With history of blood transfusion. Previous known suicide attempt CHF (congestive heart failure) Myocardial infarction x2 Surgical History Surgical History History of cardiac catheterization (~11/2017) Status post angioplasty and stent placement to distal 1st diagonal per Dr. Montalvo. History of permanent cardiac pacemaker placement x2 History of History of sternectomy Repaired hole in heart, patient unsure whether it was in atrial or ventricular septal defect. Family History Family History Mother Peripheral vascular disease Sibling Diabetes mellitus Social History Social History Social History: The patient currently lives in her own home with her boyfriend. She is on disability. She is a lifelong nonsmoker and denies alcohol and drug abuse. She designates her daughter, Preethi Rai, as her surrogate decision maker and she wishes to be a full code. The patient has 1 biological child and then has adopted another child. The patient desires to be a full code. Smoking status: Never smoker Second hand tobacco smoke exposure: No Alcohol intake: never Substance use: never Substance use type: does not use Do You Feel Safe in your Home?: Yes Lack of Transportation: No Lack of Food: Never True Current Housing: I Have Housing Concerned About Future Housing: No Difficulty Paying Gas/Electric Bills: YES Difficulty Paying for Meds: No Currently Unemployed: No Education: High School Diploma/GED Difficulty w/ Childcare or Family Care: No Gender identity (if verbalized by the patient): Female Spiritual care concerns: No Agree to blood products: Yes Exam 2 Narrative: General: Alert, awake, afebrile, in mild distress secondary to body aches. HEENT: PERRL, no rhinorrhea, no post nasal drip, oropharynx clear. Neck: Trachea midline, no JVD, no lymphadenopathy. Cardiovascular: Tachycardic with regular rhythm, no murmurs, rubs or gallops, no peripheral edema. Respiratory: Clear to auscultation bilaterally, no tachypnea, no wheezing, no rhonchi, no rubs, no respiratory distress. Abdomen: Soft, nontender, nondistended, no rebound, no guarding, no peritoneal signs. Musculoskeletal: No joint swelling or deformity, normal muscle tone. Skin: No rashes or petechia, no signs of infection. Psychiatric: Alert and oriented, normal behavior and judgment for situation. Neurological: Alert and oriented to person, place, and time. Follows all commands. No focal deficits, speech is clear and fluent. Course Vital Signs Vital signs: Vital Signs Temperature 97.3 F L 10/21/24 23:34 Pulse Rate 102 H 10/21/24 23:34 Respiratory Rate 17 10/21/24 23:34 Blood Pressure 159/92 H 10/21/24 23:34 Pulse Oximetry 19 L 10/21/24 23:34 Temperature 97.6 F 10/22/24 00:45 Pulse Rate 100 10/22/24 02:01 Respiratory Rate 25 H 10/22/24 02:01 Blood Pressure 147/84 H 10/22/24 02:01 Pulse Oximetry 95 10/22/24 02:02 Oxygen Delivery Room Air 10/22/24 02:02 MDM - Chest Pain MDM Narrative Medical decision making narrative: The patient was evaluated by myself in the emergency department. History is obtained from patient who is an independent historian and physical exam was performed. External medical records were reviewed at this time. IV was established and pertinent tests were ordered. Patient was administered 1 L IV fluid bolus with normal saline and 15 mg of IV Toradol for body aches. Patient states that the Toradol did not help her body aches and at this time she was administered 2 mg of IV morphine and 4 mg of IV Zofran. EKG was obtained which revealed a paced rhythm at a rate of 103 beats per minute, good capture, negative Sgarbossa. EKG was independently interpreted by me and is currently pending official cardiology read. Patient's [employer] pacemaker was interrogated at this time revealing no detection of any arrhythmia including atrial tachycardia, atrial fibrillation, and ventricular tachycardia. It appears as though the patient's pacemaker is set for a heart rate range between 70 and 130 beats per minute. Laboratory results obtained revealing a low magnesium of 1.5, otherwise unremarkable. At this time patient was administered 1 g of IV magnesium. Imaging studies obtained included CXR which was independently interpreted by me revealing cardiomegaly otherwise no acute cardiopulmonary process, which is pending final radiology interpretation. Differential diagnosis considerations include acute viral syndrome including COVID/influenza/RSV, infectious process such as pneumonia, dehydration. Comorbidities impacting this visit include none. I have evaluated and discussed social determinants of health with the patient that could potentially impact subsequent diagnosis and treatment plans. On repeat assessment of the patient, reevaluation revealed that the patient is doing well and is in no acute distress. Patient symptoms have improved since she arrived to our emergency department. Repeat vital signs were all reviewed and noted to be stable. Differential diagnosis and treatment plan were discussed with the patient at bedside. Patient agrees with discussion and after shared medical decision making agrees with discharge. All questions were answered to the patient's satisfaction. Patient will follow up with her PCP/boring machine operator production in 3-5 days. Patient was provided with strict return precautions and instructed to return to the emergency department if any new or worsening symptoms develop. The patient was discharged in stable condition. Lab Data 10/21/24 23:47 10/21/24 23:47 Labs: Lab Results 10/21/24 10/22/24 Range/Units 23:47 01:10 WBC 7.0 (4.5-10.0) K/mm3 RBC 5.67 H (4.2-5.4) M/mm3 Hgb 16.6 H (12.0-15.0) g/dL Hct 48.4 H (37.0-47.0) % MCV 85.4 (80-100) fl MCH 29.3 (26-34) pg MCHC 34.3 (32-36) g/dl RDW 12.8 (11.5-14.5) % Plt Count 244 (150-375) k/mm3 MPV 10.7 H (7.4-10.4) fl Immature Gran % (Auto) 0.4 (0-0.5) % Neut % (Auto) 64.9 (45.5-73.1) % Lymph % (Auto) 23.4 (18.3-44.2) % Dukes % (Auto) 9.3 H (2.6-8.5) % Eos % (Auto) 1.6 (0-4.4) % Baso % (Auto) 0.4 (0.2-1.2) % Lymph # (Auto) 1.64 (0.9-3.2) K/mm3 Dukes # (Auto) 0.7 H (0.1-0.6) K/mm3 Eos # (Auto) 0.1 (0-0.3) K/mm3 Baso # (Auto) 0.0 (0.0-0.1) K/mm3 Abs Immat Gran (auto) 0.03 (0.00-0.031) K/mm3 Absolute Neuts (auto) 4.6 (1.3-6.7) K/mm3 Absolute Nucleated RBC 0.000 (0.0-0.012) K/mm3 Nucleated RBC % 0.0 (0.0-0.2) % PT 12.0 (11.1-14.7) Seconds INR 0.9 APTT 28.2 (22.3-36.8) Seconds Sodium 136 L (137-145) mmol/L Potassium 4.3 (3.4-5.0) mmol/L Chloride 98 (98-107) mmol/L Carbon Dioxide 25 (22-30) mmol/L Anion Gap 13 H (4-12) mmol/L BUN 21 H D (7-17) mg/dL Creatinine 0.86 (0.7-1.0) mg/dL Estim Creat Clear Calc Not Reportable Estimated GFR > 60 (59 - ) Glucose 256 H (65-110) mg/dL Calcium 9.4 (8.4-10.2) mg/dL Magnesium 1.5 L (1.6-2.3) mg/dL Total Bilirubin 0.7 (0.2-1.3) mg/dL AST 26 (14-36) U/L ALT 26 (6-35) U/L Alkaline Phosphatase 142 H (38-126) U/L Troponin I 0.017 (0.000-0.034) ng/mL Total Protein 8.0 (6.3-8.2) g/dL Albumin 4.2 (3.5-5.1) g/dL Influenza A (RT-PCR) Negative (Negative) Influenza B (RT-PCR) Negative (Negative) RSV (RT-PCR) Negative (Negative) SARS-CoV-2 RNA (RT-PCR) Negative (Negative) Discharge Plan Discharge Clinical Impression: Acute viral syndrome, Acute stress reaction, Hypomagnesemia Patient Disposition: Home, Self-Care Condition: Improved Instructions: Antibiotic Form, Viral Syndrome (ED), Anxiety (ED) Additional Instructions: Please follow-up with your family doctor/boring machine operator production within the next 3-5 days. Return to the emergency department if any new or worsening symptoms develop. Patient Language: Samoan Prescriptions: No Action clopidogrel [Plavix] 75 mg Tablet 75 mg PO DAILY aspirin [Adult Low Dose Aspirin] 81 mg Tablet,Delayed Release (Dr/Ec) 81 mg PO DAILY citalopram 20 mg Tablet 10 mg PO DAILY pantoprazole 40 mg Tablet,Delayed Release (Dr/Ec) 40 mg PO DAILY nitroglycerin [Nitrostat] 0.4 mg Tablet, Sublingual 0.4 mg SUBLINGUAL Q5-15M PRN (Reason: Chest Pain) lisinopril 5 mg tablet 2.5 mg PO DAILY furosemide 40 mg Tablet 40 mg PO DAILY Qty: 30 0RF potassium chloride 20 mEq tablet extended release 20 meq PO DAILY Qty: 7 0RF glimepiride 4 mg tablet 4 mg PO BID metoprolol tartrate 25 mg tablet 25 mg PO BID rosuvastatin 20 mg Tablet 20 mg PO DAILY Januvia 100 mg tablet 100 mg PO DAILY insulin glargine [Basaglar KwikPen U-100 Insulin] 100 unit/mL (3 mL) insulin pen 45 unit SUBCUT HS Patient Comments: Patient unsure if she took last night but she knows she took it this morning at 0530 ezetimibe 10 mg tablet Follow-up/Referrals: Morgan,Bessie Soliz APRN [Primary Care Provider] - 3 Days Time of Disposition: 02:23
[2024-10-22] MEDS: SODIUM CHLORIDE 0.9% IV 1,000 ML 999 ML IV CONT (01:53)
[2024-10-22] MEDS: KETOROLAC 15 MG/ML VIAL (*BKC) IV PUSH (01:53)
[2024-10-22 01:54] LABS: Influenza A QL RT-PCR Negative (Negative); Influenza B QL RT-PCR Negative (Negative); RSV RNA, RT-PCR Negative (Negative); SARS-CoV-2 RNA PCR Negative (Negative)
--- NOTE | 2024-10-22 02:17 | PC.NURSE ---
Patient states she is still in pain, 9-06/08. ERP notified and orders being placed.
[2024-10-22] MEDS: MORPHINE SULFATE (*CRX) 2 MG/ML INJ IV PUSH (02:21)
[2024-10-22] MEDS: ONDANSETRON INJ 4 MG/2 ML VIAL IV PUSH (02:21)
== END 2024-10-22 02:53 | disposition home or self-care (01) ==
PROVIDERS: Emergency Provider Emergency Medicine; PCP Midwife
DX: B34.9 Viral infection, unspecified (principal); E83.42 Hypomagnesemia; F43.0 Acute stress reaction; Z20.822 Contact with and (suspected) exposure to COVID-19; I50.9 Heart failure, unspecified; I11.0 Hypertensive heart disease with heart failure; I25.10 Atherosclerotic heart disease of native coronary artery without angina pectoris; I25.2 Old myocardial infarction; E11.42 Type 2 diabetes mellitus with diabetic polyneuropathy; E78.5 Hyperlipidemia, unspecified; K21.9 Gastro-esophageal reflux disease without esophagitis; G25.81 Restless legs syndrome; M19.90 Unspecified osteoarthritis, unspecified site; F41.8 Other specified anxiety disorders; Z95.0 Presence of cardiac pacemaker; Z95.5 Presence of coronary angioplasty implant and graft; Z79.02 Long term (current) use of antithrombotics/antiplatelets; Z79.82 Long term (current) use of aspirin; Z79.899 Other long term (current) drug therapy; Z79.84 Long term (current) use of oral hypoglycemic drugs; Z79.4 Long term (current) use of insulin; R94.31 Abnormal electrocardiogram [ECG] [EKG]
CPT/HCPCS: 36415; 71045; 80053; 83735; 84484; 85025; 85610; 85730; 87637; 93005; 96361; 96365; 96375; 99284; J1885; J2270; J2405; J3475; J7030

== ENCOUNTER 2025-08-07 13:43 | Observation (INO) | payer OTHER, SELFPAY ==
--- NOTE | ~2025-08-07 | XR_ITS ---
EXAMINATION: XR chest 2V DATE: 08/07/2025 16:42 INDICATION: Congestive heart failure. TECHNIQUE: Frontal and lateral views of the chest were obtained. COMPARISON: Chest x-ray dated 10/22/2024 FINDINGS: Postoperative changes of chest with significant cardiomegaly. Mild congestion of lung bases with small bilateral pleural effusions suggestive of mild degree of congestive heart failure. Epicardial pace device is noted in place. IMPRESSION: 1. Postoperative changes of the heart with severe cardiomegaly. 2. Mild congestive heart failure with small bilateral pleural effusion. Reviewed, dictated and finalized at location T. AIN SUPERVISOR
[2025-08-07 14:24] VITALS: BP 137/57; PULSE 90; RESP 18; TEMP 36.9; O2SAT 94
--- NOTE | 2025-08-07 16:22 | ED_ITS ---
HPI - SOB/Dyspnea General Chief Complaint: Shortness of Breath/Dyspnea <NYA Garcia Last Filed: 08/07/25 16:29> Stated Complaint: SOB starting at 0100 this morning <NYA Garcia Last Filed: 08/07/25 16:29> Time Seen by Provider: 08/07/25 16:22 <NYA Garcia Last Filed: 08/07/25 16:29> Focused HPI: Patient is a 59 y/o female, with PMH of CAD, CHF, DM, mitral valve repair, who presents to the ED with c/o SOB. Patient reports she woke up around 1-2am this morning and began feeling SOB. States she could not catch her breath. States she could not lay flat, had to sit upright to sleep the rest of the night. SOB has continued into today, which prompted her presentation. Reports she feels similar to when she has had fluid on her lungs. Reports mild congestion. Denies BLE edema, weight gain, cough, CP, fevers. GENERAL: Well-appearing, well-nourished, and in no acute distress. HEAD: Normocephalic, atraumatic. CHEST: No respiratory distress. Slight rhonchi in bases bilaterally, no wheezing HEART: Regular rate and rhythm.? NEURO: ?Alert and oriented x3. Patient screened in triage and initial orders placed.? ?Additional care and disposition to be based upon?diagnostic testing and treatment. <NYA Garcia Last Filed: 08/07/25 16:29> Source: patient <NYA Garcia Last Filed: 08/07/25 16:29> Mode of arrival: ambulatory <NYA Garcia Last Filed: 08/07/25 16:29> Limitations: no limitations <NYA Garcia Last Filed: 08/07/25 16:29> Related Data Home Medications: Home Medications ?Medication ?Instructions ?Recorded ?Confirmed ?Last Taken ?Type aspirin 81 mg tablet,delayed 81 mg PO DAILY 07/05/19 0 01/28/24 01/26/24 History release (Adult Low Dose Aspirin) citalopram 20 mg tablet 10 mg PO DAILY 07/05/1912/3001/26/24 History clopidogrel 75 mg tablet (Plavix) 75 mg PO DAILY 07/0501/28/24 01/26/24 History nitroglycerin 0.4 mg sublingual 0.4 mg sublingual Q5-1 5M PRN Chest 07/05/19 01/28/24 Unknown History tablet (Nitrostat) Pain pantoprazole 40 mg tablet,delayed 40 mg PO DAILY 07/0501/28/24 01/26/24 History release glimepiride 4 mg tablet 4 mg PO BID 08/20/19 4 01/26/24 History metoprolol tartrate 25 mg tablet 25 mg PO BID 10/12/19 01/28/24 01/26/24 History rosuvastatin 20 mg tablet 20 mg PO DAILY 08/03/2012/3001/26/24 History insulin glargine 100 unit/mL (3 45 unit subcut HS 05/2101/28/24 01/28/24 05:30 History mL) subcutaneous pen (Basaglar KwikPen U-100 Insulin) sitagliptin phosphate 100 mg 100 mg PO DAILY 07/08/22 01/28/24 01/26/24 History tablet (Januvia) lisinopril 5 mg tablet 2.5 mg PO DAILY 01/28/2401/26/24 History ezetimibe 10 mg tablet mg 06/06/24 Unknown History <Afshan Woo PA-C - Last Filed: 08/07/25 16:29> Allergies/Adverse Reactions: Allergies Allergy/AdvReac Type Severity Reaction Status Date / Time azithromycin AdvReac Severe Gastrointestinal Verified 08/08/25 01:17 Upset diphenhydramine (From AdvReac Palpitation Verified 08/08/25 01:17 Benadryl) s <Afshan Woo PA-C - Last Filed: 08/07/25 16:29> Review of Systems 2 Review of Systems: All systems reviewed & are unremarkable except as noted in HPI and below <CATARINA Khoury Last Filed: 08/08/25 01:22> [facility] Past Medical History Medical History: Medical History Peripheral neuropathy Coronary artery disease (~11/2017) Cardiac catheterization per Dr. Montalvo demonstrated distal 1st diagonal vessel total occlusion status post angioplasty and stent placement. Eczema Gastroesophageal reflux disease Vitamin D deficiency Depression with anxiety Restless leg syndrome Osteoarthritis Diabetic peripheral neuropathy AV block Status post atrial pacemaker insertion. Valvular heart disease Status post mitral valve repair. ADARSH September 18, 2019 showed moderate to severe mitral valve calcification with decreased movement and evidence of moderate mitral valve regurgitation. Septal defect Patient on certain whether this was an ASD or VSD repair, done at the age of 39. Hyperlipidemia Hypertension Insulin dependent type 2 diabetes mellitus Hemoglobin A1c was 9.8% in July 2019. Seasonal allergies Anemia With history of blood transfusion. Previous known suicide attempt CHF (congestive heart failure) Myocardial infarction x2 <Afshan Woo PA-C - Last Filed: 08/07/25 16:29> Surgical History Surgical History: Surgical History History of cardiac catheterization (~11/2017) Status post angioplasty and stent placement to distal 1st diagonal per Dr. Montalvo. History of permanent cardiac pacemaker placement x2 History of History of sternectomy Repaired hole in heart, patient unsure whether it was in atrial or ventricular septal defect. <Afshan Woo PA-C - Last Filed: 08/07/25 16:29> Family History Family History: Family History Mother Peripheral vascular disease Sibling Diabetes mellitus <NYA Garcia Last Filed: 08/07/25 16:29> Social History Social History: Social History Social History: The patient currently lives in her own home with her boyfriend. She is on disability. She is a lifelong nonsmoker and denies alcohol and drug abuse. She designates her daughter, Preethi Rai, as her surrogate decision maker and she wishes to be a full code. The patient has 1 biological child and then has adopted another child. The patient desires to be a full code. Smoking status: Never smoker Second hand tobacco smoke exposure: No Alcohol intake: never Substance use: never Substance use type: does not use Lack of Transportation: No Lack of Food: Never True Current Housing: I Have Housing Concerned About Future Housing: No Difficulty Paying Gas/Electric Bills: YES Difficulty Paying for Meds: No Currently Unemployed: No Education: High School Diploma/GED Difficulty w/ Childcare or Family Care: No Gender identity (if verbalized by the patient): Female Spiritual care concerns: No Agree to blood products: Yes <Afshan Woo PA-C - Last Filed: 08/07/25 16:29> Exam 2 Narrative: GENERAL: No acute distress. HEAD: Normocephalic, atraumatic. EYES: PERRLA and EOMI. ENT: Nares clear, no rhinorrhea or epistaxis. Mucous membranes moist. Oropharynx without tonsillar hypertrophy exudate or other lesions. Bilateral TMs pearly [place]oul[place] non-bulging NECK: Supple. No adenopathy or masses. No carotid bruits or JVD CHEST: Clear to auscultation. No respiratory distress. No wheezes rales or rhonchi HEART: Regular rate and rhythm. No murmur heard. Normal peripheral pulses. ABDOMEN: Soft, nontender, normal active bowel sounds, distended. EXTREMITIES: Normal range of motion. No edema. SKIN: Warm, dry, no rash. NEURO: No focal deficits. Alert and oriented x3. PSYCH: Normal mood and affect <CATARINA Khoury - Last Filed: 08/08/25 01:22> Course GRINDER OPERATOR TOOL/PA Physician Supervision This visit was performed by both a physician and an APC; I performed all aspects of the medical decision making component of this evaluation as documented. <Khushi Lewis MD - Last Filed: 08/07/25 22:15> Vital Signs Vital signs: Vital Signs Temperature 98.4 F 08/07/25 14:24 Pulse Rate 90 08/07/25 14:24 Respiratory Rate 18 08/07/25 14:24 Blood Pressure 137/57 L 08/07/25 14:24 Pulse Oximetry 94 08/07/25 14:24 Oxygen Delivery Room Air 08/07/25 14:24 Temperature 98.8 F 08/07/25 23:15 Pulse Rate 71 08/07/25 23:15 Respiratory Rate 29 H 08/07/25 23:15 Blood Pressure 122/78 08/07/25 23:15 Pulse Oximetry 91 08/07/25 23:15 Oxygen Delivery Room Air 08/07/25 14:24 <Afshan Woo PA-C - Last Filed: 08/07/25 16:29> Vital Signs Temperature 98.4 F 08/07/25 14:24 Pulse Rate 90 08/07/25 14:24 Respiratory Rate 18 08/07/25 14:24 Blood Pressure 137/57 L 08/07/25 14:24 Pulse Oximetry 94 08/07/25 14:24 Oxygen Delivery Room Air 08/07/25 14:24 Temperature 98.8 F 08/07/25 23:15 Pulse Rate 71 08/07/25 23:15 Respiratory Rate 29 H 08/07/25 23:15 Blood Pressure 122/78 08/07/25 23:15 Pulse Oximetry 91 08/07/25 23:15 Oxygen Delivery Room Air 08/07/25 14:24 <CATARINA Khoury - Last Filed: 08/08/25 01:22> Vital Signs Temperature 98.4 F 08/07/25 14:24 Pulse Rate 90 08/07/25 14:24 Respiratory Rate 18 08/07/25 14:24 Blood Pressure 137/57 L 08/07/25 14:24 Pulse Oximetry 94 08/07/25 14:24 Oxygen Delivery Room Air 08/07/25 14:24 Temperature 98.8 F 08/07/25 23:15 Pulse Rate 71 08/07/25 23:15 Respiratory Rate 29 H 08/07/25 23:15 Blood Pressure 122/78 08/07/25 23:15 Pulse Oximetry 91 08/07/25 23:15 Oxygen Delivery Room Air 08/07/25 14:24 <Khushi Lewis MD - Last Filed: 08/07/25 22:15> MDM MDM Narrative Medical decision making narrative: MSE by DEBBIE in triage <NYA Garcia Last Filed: 08/07/25 16:29> MSE by DEBBIE in triage Patient is a 59 y/o female, with PMH of CAD, CHF, DM, mitral valve repair, who presents to the ED with c/o SOB. Patient reports she woke up around 1-2am this morning and began feeling SOB. States she could not catch her breath. States she could not lay flat, had to sit upright to sleep the rest of the night. SOB has continued into today, which prompted her presentation. Reports she feels similar to when she has had fluid on her lungs. Reports mild congestion. Denies BLE edema, weight gain, cough, CP, fevers. Upon my initial assessment patient appears nontoxic with stable vitals including an oxygen saturation 94%. Imaging demonstrates postoperative changes of the heart with severe cardiomegaly and mild congestive heart failure with small bilateral pleural effusion. BNP is 2350. Other labs are unremarkable. Patient ambulated with nursing staff and her oxygen dropped to 85%. Began Lasix. Discussed with Dr. Espinoza with hospitalist patient presentation and workup. Agrees with admission at this time. Patient is stable pending transport upstairs. <CATARINA Khoury - Last Filed: 08/08/25 01:22> Differential Diagnosis Differential Diagnosis: Differential diagnostic considerations for shortness of breath include respiratory failure, pulmonary embolus, ACS, COPD, CHF, pneumonia, pneumothorax, asthma, metabolic disorder, anxiety. <CATARINA Khoury - Last Filed: 08/08/25 01:22> Medical Records I have reviewed the following patient records and this information was taken into consideration when formulating the assessment and plan.: previous labs, previous ER visits and previous hospitalizations <CATARINA Khoury Last Filed: 08/08/25 01:22> Lab Data MDM Lab Attestation statement: I personally reviewed the patient's lab results. <CATARINA Khoury - Last Filed: 08/08/25 01:22> Result diagrams: 08/07/25 17:38 08/07/25 17:38 <Afshan Woo PA-C - Last Filed: 08/07/25 16:29> Labs: Lab Results 08/07/25 Range/Units 17:38 WBC 6.1 (4.5-10.0) K/mm3 RBC 4.56 (4.2-5.4) M/mm3 Hgb 13.3 D (12.0-15.0) g/dL Hct 39.2 (37.0-47.0) % MCV 86.0 (80-100) fl MCH 29.2 (26-34) pg MCHC 33.9 (32-36) g/dl RDW 12.8 (11.5-14.5) % Plt Count 205 (150-375) k/mm3 MPV 10.5 H (7.4-10.4) fl Immature Gran % (Auto) 0.2 (0-0.5) % Neut % (Auto) 67.9 (45.5-73.1) % Lymph % (Auto) 22.7 (18.3-44.2) % [place]arro % (Auto) 6.9 (2.6-8.5) % Eos % (Auto) 1.6 (0-4.4) % Baso % (Auto) 0.7 (0.2-1.2) % Lymph # (Auto) 1.38 (0.9-3.2) K/mm3 [place] # (Auto) 0.4 (0.1-0.6) K/mm3 Eos # (Auto) 0.1 (0-0.3) K/mm3 Baso # (Auto) 0.0 (0.0-0.1) K/mm3 Abs Immat Gran (auto) 0.01 (0.00-0.031) K/mm3 Absolute Neuts (auto) 4.1 (1.3-6.7) K/mm3 Absolute Nucleated RBC 0.000 (0.0-0.012) K/mm3 Nucleated RBC % 0.0 (0.0-0.2) % PT 13.1 (11.1-14.7) Seconds INR 1.0 APTT 31.1 (22.3-36.8) Seconds Sodium 134 L (137-145) mmol/L Potassium 4.2 (3.4-5.0) mmol/L Chloride 105 (98-107) mmol/L Carbon Dioxide 20 L (22-30) mmol/L Anion Gap 9 (4-12) mmol/L BUN 19 H (7-17) mg/dL Creatinine 0.94 (0.7-1.0) mg/dL Estim Creat Clear Calc 51 ml/min Estimated GFR > 60 (59 - ) Glucose 339 H (65-110) mg/dL Calcium 8.8 (8.4-10.2) mg/dL Total Bilirubin 1.3 (0.2-1.3) mg/dL AST 25 (14-36) U/L ALT 27 (6-35) U/L Alkaline Phosphatase 130 H (38-126) U/L Troponin I < 0.012 (0.000-0.034) ng/mL NT-Pro-B Natriuret Pep 2350 H (19.9-100) pg/mL Total Protein 6.9 (6.3-8.2) g/dL Albumin 4.0 (3.5-5.1) g/dL <Afshan Woo PA-C - Last Filed: 08/07/25 16:29> Lab Results 08/07/25 Range/Units 17:38 WBC 6.1 (4.5-10.0) K/mm3 RBC 4.56 (4.2-5.4) M/mm3 Hgb 13.3 D (12.0-15.0) g/dL Hct 39.2 (37.0-47.0) % MCV 86.0 (80-100) fl MCH 29.2 (26-34) pg MCHC 33.9 (32-36) g/dl RDW 12.8 (11.5-14.5) % Plt Count 205 (150-375) k/mm3 MPV 10.5 H (7.4-10.4) fl Immature Gran % (Auto) 0.2 (0-0.5) % Neut % (Auto) 67.9 (45.5-73.1) % Lymph % (Auto) 22.7 (18.3-44.2) % Navarro % (Auto) 6.9 (2.6-8.5) % Eos % (Auto) 1.6 (0-4.4) % Baso % (Auto) 0.7 (0.2-1.2) % Lymph # (Auto) 1.38 (0.9-3.2) K/mm3 [place]arro # (Auto) 0.4 (0.1-0.6) K/mm3 Eos # (Auto) 0.1 (0-0.3) K/mm3 Baso # (Auto) 0.0 (0.0-0.1) K/mm3 Abs Immat Gran (auto) 0.01 (0.00-0.031) K/mm3 Absolute Neuts (auto) 4.1 (1.3-6.7) K/mm3 Absolute Nucleated RBC 0.000 (0.0-0.012) K/mm3 Nucleated RBC % 0.0 (0.0-0.2) % PT 13.1 (11.1-14.7) Seconds INR 1.0 APTT 31.1 (22.3-36.8) Seconds Sodium 134 L (137-145) mmol/L Potassium 4.2 (3.4-5.0) mmol/L Chloride 105 (98-107) mmol/L Carbon Dioxide 20 L (22-30) mmol/L Anion Gap 9 (4-12) mmol/L BUN 19 H (7-17) mg/dL Creatinine 0.94 (0.7-1.0) mg/dL Estim Creat Clear Calc 51 ml/min Estimated GFR > 60 (59 - ) Glucose 339 H (65-110) mg/dL Calcium 8.8 (8.4-10.2) mg/dL Total Bilirubin 1.3 (0.2-1.3) mg/dL AST 25 (14-36) U/L ALT 27 (6-35) U/L Alkaline Phosphatase 130 H (38-126) U/L Troponin I < 0.012 (0.000-0.034) ng/mL NT-Pro-B Natriuret Pep 2350 H (19.9-100) pg/mL Total Protein 6.9 (6.3-8.2) g/dL Albumin 4.0 (3.5-5.1) g/dL <CATARINA Khoury - Last Filed: 08/08/25 01:22> Lab Results 08/07/25 Range/Units 17:38 WBC 6.1 (4.5-10.0) K/mm3 RBC 4.56 (4.2-5.4) M/mm3 Hgb 13.3 D (12.0-15.0) g/dL Hct 39.2 (37.0-47.0) % MCV 86.0 (80-100) fl MCH 29.2 (26-34) pg MCHC 33.9 (32-36) g/dl RDW 12.8 (11.5-14.5) % Plt Count 205 (150-375) k/mm3 MPV 10.5 H (7.4-10.4) fl Immature Gran % (Auto) 0.2 (0-0.5) % Neut % (Auto) 67.9 (45.5-73.1) % Lymph % (Auto) 22.7 (18.3-44.2) % [place] % (Auto) 6.9 (2.6-8.5) % Eos % (Auto) 1.6 (0-4.4) % Baso % (Auto) 0.7 (0.2-1.2) % Lymph # (Auto) 1.38 (0.9-3.2) K/mm3 [place] # (Auto) 0.4 (0.1-0.6) K/mm3 Eos # (Auto) 0.1 (0-0.3) K/mm3 Baso # (Auto) 0.0 (0.0-0.1) K/mm3 Abs Immat Gran (auto) 0.01 (0.00-0.031) K/mm3 Absolute Neuts (auto) 4.1 (1.3-6.7) K/mm3 Absolute Nucleated RBC 0.000 (0.0-0.012) K/mm3 Nucleated RBC % 0.0 (0.0-0.2) % PT 13.1 (11.1-14.7) Seconds INR 1.0 APTT 31.1 (22.3-36.8) Seconds Sodium 134 L (137-145) mmol/L Potassium 4.2 (3.4-5.0) mmol/L Chloride 105 (98-107) mmol/L Carbon Dioxide 20 L (22-30) mmol/L Anion Gap 9 (4-12) mmol/L BUN 19 H (7-17) mg/dL Creatinine 0.94 (0.7-1.0) mg/dL Estim Creat Clear Calc 51 ml/min Estimated GFR > 60 (59 - ) Glucose 339 H (65-110) mg/dL Calcium 8.8 (8.4-10.2) mg/dL Total Bilirubin 1.3 (0.2-1.3) mg/dL AST 25 (14-36) U/L ALT 27 (6-35) U/L Alkaline Phosphatase 130 H (38-126) U/L Troponin I < 0.012 (0.000-0.034) ng/mL NT-Pro-B Natriuret Pep 2350 H (19.9-100) pg/mL Total Protein 6.9 (6.3-8.2) g/dL Albumin 4.0 (3.5-5.1) g/dL <Khushi Lewis MD - Last Filed: 08/07/25 22:15> Imaging Data Attestation: I personally reviewed and interpreted this imaging study as follows: < CATARINA Khoury - Last Filed: 08/08/25 01:22> Radiologist's impression: ITS Impressions Chest X-Ray 08/07/25 16:45 IMPRESSION: 1. Postoperative changes of the heart with severe cardiomegaly. 2. Mild congestive heart failure with small bilateral pleural effusion. <Afshan Woo PA-C - Last Filed: 08/07/25 16:29> ITS Impressions Chest X-Ray 08/07/25 16:45 IMPRESSION: 1. Postoperative changes of the heart with severe cardiomegaly. 2. Mild congestive heart failure with small bilateral pleural effusion. <CATARINA Khoury - Last Filed: 08/08/25 01:22> ITS Impressions Chest X-Ray 08/07/25 16:45 IMPRESSION: 1. Postoperative changes of the heart with severe cardiomegaly. 2. Mild congestive heart failure with small bilateral pleural effusion. <Khushi Lewis MD - Last Filed: 08/07/25 22:15> ECG Data EKG #1: ECG completion date: 08/07/25 <CATARINA Khoury - Last Filed: 08/08/25 01:22> ECG completion time: 17:36 <CATARINA Khoury - Last Filed: 08/08/25 01:22> normal rate, sinus rhythm, other (Ventricular pacemaker) and no acute changes <CATARINA Khoury - Last Filed: 08/08/25 01:22> Discharge Plan Discharge Clinical Impression: CHF (congestive heart failure), Dyspnea <Afshan Woo PA-C - Last Filed: 08/07/25 16:29> Patient Disposition: Still a Patient <Afshan Woo PA-C - Last Filed: 08/07/25 16:29> Condition: Stable <Afshan Woo PA-C - Last Filed: 08/07/25 16:29>
--- NOTE | 2025-08-07 16:27 | ECG_ITS ---
Test Date: 2025-08-07 17:36:14 Measurements Intervals [place] Rate: 75 P: 12 NM: 226 QRS: -51 QRSD: 188 T: 87 QT: 474 QTc: 531 Interpretive Statements ATRIAL SENSE- ELECTRONIC VENTRICULAR PACEMAKER BASELINE ARTIFACT- I, II, III, AVR, AVL, AVF NO FURTHER INTERPRETATION IS POSSIBLE ATYPICAL ECG Compared to ECG 10/21/2024 23:33:39 HEAR RATE HAS DECREASED Electronically Signed On 08-07-2025 18:57:17 SR. PRICING ANALYST by Armando Goff D.O.
[2025-08-07 17:48] LABS: Hematocrit 39.2 % (37.0-47.0); Hemoglobin 13.3 g/dL (12.0-15.0); Immature Granulocyte Percent A 0.2 % (0-0.5); Lymphocytes Absolute Auto 1.38 K/mm3 (0.9-3.2); Mean Corpuscular HGB Conc 33.9 g/dl (32-36); Mean Corpuscular Hemoglobin 29.2 pg (26-34); Mean Corpuscular Volume 86.0 fl (80-100); Nucleated Red Blood Cells Absolute Auto 0.000 K/mm3 (0.0-0.012); Nucleated Red Blood Cells Perc 0.0 % (0.0-0.2); Platelet Count Result 205 k/mm3 (150-375); Red Blood Count 4.56 M/mm3 (4.2-5.4); White Blood Count 6.1 K/mm3 (4.5-10.0)
[2025-08-07 18:00] LABS: INR 1.0; Prothrombin Time 13.1 Seconds (11.1-14.7)
[2025-08-07 18:01] LABS: Partial Thromboplastin Time 31.1 Seconds (22.3-36.8)
[2025-08-07 18:05] LABS: Alanine Aminotransferase 27 U/L (6-35); Albumin Level 4.0 g/dL (3.5-5.1); Alkaline Phosphatase 130 U/L (38-126); Anion Gap 9 mmol/L (4-12); Aspartate Amino Transferase 25 U/L (14-36); Bilirubin,Total 1.3 mg/dL (0.2-1.3); Blood Urea Nitrogen 19 mg/dL (7-17); Calcium 8.8 mg/dL (8.4-10.2); Carbon Dioxide 20 mmol/L (22-30); Chloride 105 mmol/L (98-107); Estimated CRCL calculation 51 ml/min; Estimated Glomerular Filt Rate > 60; Glucose 339 mg/dL (65-110); Potassium 4.2 mmol/L (3.4-5.0); Sodium 134 mmol/L (137-145); Total Protein 6.9 g/dL (6.3-8.2)
[2025-08-07 18:16] LABS: NT Pro B Type Natriuretic Pept 2350 pg/mL (19.9-100); Troponin I < 0.012 ng/mL (0.000-0.034)
--- OUTSIDE RECORDS SUMMARY | 2025-08-07 19:13 | XMS_ITS | Clinical Summary ---
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 Gender Identity Not on file Sexual Orientation Not on file Plan of Treatment Health Maintenance Due Date Last Done Comments Hepatitis C Virus (HCV) Screening 1965 TdaP Immunization 1965 Pap Smear 12/02/1984 Cervical Cancer Screening (CCS) 12/02/1993 HPV/Cotest 12/02/1993 Cologuard 12/02/2008 Colonoscopy 12/02/2008 Colorectal Cancer Screening 12/02/2008 Immunochemical Fecal Occult Blood 12/02/2008 Pneumococcal Immunization (5 0+ years) (1 of 1 - PCV) 12/02/2013 Zoster Immunization (1 of 2) 12/02/2013 Influenza Immunization (#1) 2025 09/2 11/2018, 06/29/2018 SARS-COV-2 Immunization ( - season) 2025 Respiratory Syncytial Virus (RSV) Immunization (Adult) (1 - 1-dose 75+ series) 12/02/2038 Hepatitis B Immunization Aged Out No longer eligible based on patient's age to complete this topic Human Papillomavirus (HPV) Immunization Aged Out No longer eligible b ased on patient's age to complete this topic Meningococcal Immunization (ACWY) Aged Out No longer eligible b ased on patient's age to complete this topic Rotavirus Immunization Aged Out No lo nger eligible based on patient's age to complete this topic
--- OUTSIDE RECORDS SUMMARY | 2025-08-07 19:13 | XMS_ITS | Clinical Summary ---
Author Organization [facility] Address [address] [place] [address] Care Team Providers Care Assembly Line Upholsterer Name Role Phone MariluAllyson shinmelinda MASON Primary Care Provider [phone] Aden Wynn MD Unavailable [phone] Allergies Active Allergy Reactions Criticality Noted Date Comments Azithromycin Vomiting 12/08/2024 Medications ACETAMINOPHEN EXTRA STRENGTH 500 MG tablet Take 2 tablets (1,000 mg total) by mouth every 6 (six) hours as needed for Pain. 5 Active aspirin EC (ECOTRIN) 81 MG tablet Take 1 tablet (81 mg total) by mouth daily. Active TRULICITY 0.75 MG/0.5ML injection Inject 0.75 mg into the skin once a week. Wednesdays 5 Active ezetimibe (ZETIA) 10 MG tablet Take 1 tablet (10 mg total) by mouth daily. Active fluticasone propionate (FLONASE) 50 MCG/ACT nasal spray 2 sprays by Each Nostril route 2 (two) times daily as needed for Rhinitis. 5 Active lisinopril (PRINIVIL) 5 MG tablet Take 1 tablet (5 mg total) by mouth daily. Active metoprolol tartrate (LOPRESSOR) 25 MG tablet Take 1 tablet (25 mg total) by mouth 2 (two) times daily. Active pantoprazole EC (PROTONIX) 40 MG tablet Take 1 tablet (40 mg total) by mouth daily. Active cetirizine (ZYRTEC) 10 MG tablet Take 1 tablet (10 mg total) by mouth daily. Active rosuvastatin (CRESTOR) 40 MG tablet Take 1 tablet (40 mg total) by mouth daily. Active hydrOXYzine (ATARAX) 25 MG tablet Take 1 tablet (25 mg total) by mouth 3 (three) times daily as needed for Anxiety. Active BASAGLAR KWIKPEN 100 UNIT/ML injection (PEN)Indication s:Vertigo Inject 35 Units into the skin every morning. 7.5 mL Active Active Problems Problem Noted Date Diagnosed Date Vertigo 12/10/2024 Dizziness 12/08/2024 Social History Tobacco Use Types Packs/Day Years Used Date Smoking Tobacco: Never Smokeless Tobacco: Never Tobacco Cessation:Counseling Given: Not Answered Alcohol Use Standard Drinks/Week Comments Never 0 (1 standard drink = 0.6 oz pur e alcohol) Comments No Sex and Gender Information Value Date Recorded Sex Assigned at Female 12/08/2024 3:34 PM CDT Legal Sex Female 3:00 PM CDT Gender Identity Not on file Sexual Orientation Not on file Last Filed Vital Signs Vital Sign Reading Time Taken Comments Blood Pressure 115/78 01/16/2025 9:05 PM CDT Pulse 90 01/16/2025 4:29 PM CDT Temperature 36.3 C (97.4 F) 01/16/2025 1:43 PM CDT Respiratory Rate 17 01/16/2025 4:29 PM CDT Oxygen Saturation 97% 01/16/2025 9:05 PM CDT Inhaled Oxygen Concentration - - Weight 76.7 kg (169 lb) 01/16/2025 1:43 PM CDT Height 152.4 cm (5') 01/16/2025 1:43 PM CDT Body Mass Index 33.01 01/16/2025 1:43 PM CDT Plan of Treatment Health Maintenance Due Date Last Done Comments ASCVD LDL 1965 Cervical Cancer Screening Pap Smear (Age 30 to 64) Every 3 Years 1965 Colorectal Cancer Screening Colonoscopy (10 Years) 1965 Annual Physical 12/02/1966 Hepatitis C 12/02/1981 DTaP, Tdap and Td Vaccines (1 - Tdap) 12/02/1982 Cervical Cancer Screening Pap with HPV Testing (Age 30 to 64) Every 5 Years 12/02/1993 Cervical Cancer Screening with HPV 12/02/1993 Zoster Vaccines (1 of 2) 12/02/2013 Mammogram Screening 09/29/2019 09/29/2017 Pneumococcal Vaccine: 50+ Years (2 of 2 - PCV) 07/22/2022 07/22/2021 RSV Immunization or 60+ Years (1 - Risk 60-74 years 1-dose series) 2023 COVID-19 Vaccine (3 - season) 2025 09/10/2021, 11/04/2020 Influenza Adult (#1) 2025 07/08/2023, 05/22/2021, 08/04/2020, Additional history exists Hepatitis A Vaccines Aged Out No long er eligible based on patient's age to complete this topic Meningococcal B Vaccine Aged Out No l onger eligible based on patient's age to complete this topic Meningococcal Vaccine Aged Out No corby angelito eligible based on patient's age to complete this topic RSV Immunizations Under 20 Months Aged Out No longer eligible based on patient's age to complete this topic Goals Goal Patient Goal Type Associated Problems Recent Progress Patient-Stated? Author Health - patient able to perform ADLs independently Lifestyle No Johnnie Woodruff RN Medical Devices Implanted Type Area Cotton Grower Device Identifier Shelf Expiration Date Model / Serial / Lot Ra Lead Implant-2004 Implanted:Qty: 1 on 06/29/2005 Lead Implant Right: Atrium [employer] CARDIAC RHYTHM AND HEART FAILURE - DIV M 4968-35 / [id number] / Description:LEAD IS NOT MR C ONDITIONAL Rv Lead Implant-2004 Implanted:Qty: 1 on 06/29/2005 Lead Implant Right: Ventricle [employer] CARDIAC RHYTHM AND HEART FAILURE - DIV M [id number] / [id number] / Description:LEAD IS NOT MR C ONDITIONAL Pacemaker-10/09 Implanted:Qty: 1 on 10/09/2024 by Roc Dumont MD Pacemaker Abdomen [employer] CARDIAC RHYTHM AND HEART FAILURE - DIV M [id number] / [id number] / Description:DEVICE IS NOT MR CONDITIONAL(LEADS ARE NOT MR CONDITIONAL AND DEVICE PLACED IN ABDOMEN) Insurance [place], [place] [id number] [place] [employer] Advance Directives * Full Code (Latest Code Status on File) Date Activated Date Inactivated Comments 12/08/2024 7:59 PM 12/11/2024 2:17 PM Care Teams Assembly Line Upholsterer Relationship Specialty Start Date End Date Bessie Mora FNP [address] [facility] [address] [place] [address] PCP - General NURSE PRACTITIONER 12/08/24 Aden Wynn MD [address] [place] [address] [address] [place] [address] CARDIOVASCULAR DISEASE 12/08/24
--- OUTSIDE RECORDS SUMMARY | 2025-08-07 19:13 | XMS_ITS | Encounter Summary ---
Author Organization [facility] Facility Care Team Providers Care Internal Affairs Commander Name Role Phone Charity Vela Ben FLAVORING MACHINE OPERATOR Primary Care Provide r Bessie Mora FLAVORING MACHINE OPERATOR Primary Care Provider Kristy Campos RESIDENTIAL ROOFER HELPER Unavailable [phone] Encounter Details Date Type Department Care Team (Latest Contact Info) Description 05/18/2016 Orders Only [facility] CLINCONV ProviderDallas MD [address] [place] [address] Social History Tobacco Use Types Packs/Day Years Used Date Smoking Tobacco: Never Comments Unknown Sex and Gender Information Value Date Recorded Sex Assigned at Not on file Legal Sex Female 6:46 AM TRANSACTIONAL ATTORNEY Gender Identity Not on file Sexual Orientation [...] on filedocumented in this encounter Care Teams Internal Affairs Commander Relationship Specialty Start Date End Date Charity Vela NP PCP - General Nurse Practitioner 05/09/21 10/09/24 Bessie Mora NP [address] [place] [address] PCP - General Family Medicine 10/10/24 Kristy Campos LCSW [address] [facility] ([facility]) Mailstop [phone] [place] [address] SHOP Outpatient Cylinder Handler 10/11/24 11/07/24 documented as of this encounter
--- OUTSIDE RECORDS SUMMARY | 2025-08-07 19:13 | XMS_ITS | Encounter Summary ---
Author Organization [facility] Facility Care Team Providers Care Ship Erector Name Role Phone Charity Vela ASSOCIATE DATA SCIENTIST Primary Care Provide r Bessie Mora NP Primary Care Provider Kristy Campos POLICY DIRECTOR Unavailable [phone] Encounter Details Date Type Department Care Team (Latest Contact Info) Description 12/01/2012 Orders Only [facility] CLINCONV ProviderDallas MD [address] [place] [address] Social History Tobacco Use Types Packs/Day Years Used Date Smoking Tobacco: Never Assessed Comments Unknown Sex and Gender Information Value Date Recorded Sex Assigned at Not on file Legal Sex Female 6:46 AM JAVA SECURITY ENGINEER Gender Identity Not on file Sexual [...] on filedocumented in this encounter Care Teams Ship Erector Relationship Specialty Start Date End Date Charity Vela NP PCP - General Nurse Practitioner 05/09/21 10/09/24 Bessie Mora NP [address] [place] [address] PCP - General Family Medicine 10/10/24 Kristy Campos LCSW [address] [facility] ([facility]) Mailstop [phone] [place] [address] SHOP Outpatient Treasury Representative 10/11/24 11/07/24 documented as of this encounter
--- OUTSIDE RECORDS SUMMARY | 2025-08-07 19:13 | XMS_ITS | Encounter Summary ---
Author Organization [facility] Facility Care Team Providers Care Diesel Engine I Pipe Fitter Name Role Phone Charity Vela VC++ DEVELOPER Primary Care Provide r Bessie Mora NP Primary Care Provider Kristy Campos ACTUARIAL INTERN Unavailable [phone] Encounter Details Date Type Department Care Team (Latest Contact Info) Description 12/10/2016 Orders Only [facility] CLINCONV ProviderDallas MD [address] [place] [address] Social History Tobacco Use Types Packs/Day Years Used Date Smoking Tobacco: Never Comments Unknown Sex and Gender Information Value Date Recorded Sex Assigned at Not on file Legal Sex Female 6:46 AM OFFICE SUPPORT ASSOCIATE Gender Identity Not on file Sexual Orientation [...] on filedocumented in this encounter Care Teams Diesel Engine I Pipe Fitter Relationship Specialty Start Date End Date Charity Vela NP PCP - General Nurse Practitioner 05/09/21 10/09/24 Bessie Mora NP [address] [place] [address] PCP - General Family Medicine 10/10/24 Kristy Campos LCSW [address] [facility] ([facility]) Mailstop [phone] [place] [address] SHOP Outpatient Last Turner 10/11/24 11/07/24 documented as of this encounter
--- OUTSIDE RECORDS SUMMARY | 2025-08-07 19:13 | XMS_ITS | Encounter Summary ---
Author Organization [facility] Address [address] [place] [address] Phone Care Team Providers Care Pathology Collector Name Role Phone Charity Vela SENIOR STAFF CONSULTANT Primary Care Provide r Bessie Mora NP Primary Care Provider Kristy Campos SENIOR CYBER SECURITY ANALYST Unavailable [phone] Encounter Details Date Type Department Care Team (Latest Contact Info) Description 12/13/2014 Orders Only [facility] Scanning, Provider Social History Tobacco Use Types Packs/Day Years Used Date Smoking Tobacco: Never Comments Unknown Sex and Gender Information Value Date Recorded Sex Assigned at Not on file Legal Sex Female 6:46 AM HOSPICE CASE MANAGER Gender Identity Not on file Sexual Orientation [...] on filedocumented in this encounter Care Teams Pathology Collector Relationship Specialty Start Date End Date Charity Vela NP PCP - General Nurse Practitioner 05/09/21 10/09/24 Bessie Mora NP [address] [place] [address] PCP - General Family Medicine 10/10/24 Kristy Campos LCSW [address] [facility] ([facility]) Mailstop [phone] [place] [address] SHOP Outpatient Crate Tier 10/11/24 11/07/24 documented as of this encounter
--- OUTSIDE RECORDS SUMMARY | 2025-08-07 19:13 | XMS_ITS | Clinical Summary ---
Author Organization [facility] [address] Address [address] [place] [address] Care Team Providers Care Director Channel Name Role Phone eBssie Mora NP Primary Care Provider [phone] Allergies Active Allergy Reactions Criticality Noted Date Comments Azithromycin Stomach upset,Nausea & Vomiting High Erythromycin Unknown 06/26/2025 Medications aspirin 81 mg enteric coated tablet [...] UNDER THE SKIN AT BEDTIME Active lisinopriL (PRINIVIL,ZESTR IL) 5 mg tablet Take 1 tablet (5 [...] (40 mg total) by mouth daily Active Active Problems Problem Noted Date Diagnosed Date Arrhythmia 10/06/2024 Pacemaker battery depletion 10/06/2024 Presence of cardiac pacemaker 05/29/2013 Gastroesophageal reflux disease 05/16/2013 Diabetes mellitus 05/16/2013 Complete atrioventricular block 11/29/2012 Syncope 03/16/2011 Mobitz type II atrioventricular block 01/12/2011 Overview (12/10/2017): Description: Second Degree A-V Block, Mobitz Type II Tricuspid valve insufficiency 01/02/2010 Mitral valve insufficiency 01/02/2010 Atrial septal defect 01/02/2010 Encounters Date Type Department Care Team Description 06/26/2025 10:15 AM CDT Office Visit [facility] Cardiology [address] [place] [address] [place] [phone] Migdalia Hampton MD Complete atrioventricular block (HCC) (Primary Dx); Presence of cardiac pacemaker 06/26/2025 9:15 AM CDT Ancillary Procedure [facility] Cardiology [address] [place] [address] [place] [phone] Complete atrioventricular block (HCC) (Primary Dx); Encounter for interrogation of cardiac pacemaker; Fitting or adjustment of cardiac pacemaker 05/28/2025 Telephone [facility] Cardiology [facility] Advanced [facility] 8th [place] [address] [place] [phone] Migdalia Hamtpon MD from Last 3 Months Surgical History Surgery Date Site/Laterality Comments A-V CARDIAC PACEMAKER INSERTION 08/30/2004 - 08/29/2005 Epicardial DC-PPM - Medtronic ASD REPAIR, OSTIUM PRIMUM 08/30/2004 - 08/29/2005 cleft mitral valve, primum asd, severe TR [place] [address] Izaguirre. SECTION CARDIAC ELECTROPHYSIOLOGY PROCEDURE 10/09/2024 N/A Procedure: REMOVE/REPLACE PACEMAKER (PPM) DUAL LEAD SYSTEM [id number]; Surgeon: Roc Dumont MD; Location: [facility] EP [facility]; Service: Cardiovascular; Laterality: N/A; Medical devices from this surgery are in the Medical Devices section. Medical History Medical History Date Comments Complete heart block (HCC) Hypertension CAD (coronary artery disease) GERD (gastroesophageal reflux disease) DM2 (diabetes mellitus, type 2) ASD (atrial septal defect), primum Congenital cleft leaflet of mitral valve Family History Medical History Relation Name Comments Hypertension Father Hyperlipidemia Mother Peripheral vascular disease Mother Diabetes type II Paternal Grandmother Hyperlipidemia Paternal Grandmother Hypertension Paternal Grandmother Diabetes type II Sister Relation Name Status Comments Father Mother Paternal Grandmother Sister Social History Tobacco Use Types Packs/Day Years Used Date Smoking Tobacco: Never Passive Smoke Exposure: Current Smokeless Tobacco: Never Personal Safety Answer Date Recorded Have you ever been in or are you currently in a harmful physical or emotional relationship or is someone making you feel afraid or unsafe? Denies 10/06/2024 Comments Unknown Sex and Gender Information Value Date Recorded Sex Assigned at Not on file Legal Sex Female 6:46 AM PRIVATE HOUSEHOLD WORKER Gender Identity Not on file Sexual Orientation Not on file Obstetrics History Para Term AB IAB SAB Ectopic Multiple Livin g Live Births 1 1 1 0 0 1 Date Outcome GA Total Labor Labor/2nd/3rd Weight Sex Type Anes PTL Janessa A1 A5 Name Clin Term Last Filed Vital Signs Vital Sign Reading Time Taken Comments Blood Pressure 120/75 06/26/2025 9:17 AM CDT Pulse 79 06/26/2025 9:17 AM CDT Temperature 36.6 C (97.9 F) 06/26/2025 9:17 AM CDT Respiratory Rate 18 10/10/2024 3:08 PM PRIVATE HOUSEHOLD WORKER Oxygen Saturation 97% 06/26/2025 9:17 AM CDT Inhaled Oxygen Concentration - - Weight 77.2 kg (170 lb 3.2 oz) 06/26/2025 9:17 A M CDT Height 152.4 cm (5') 06/26/2025 9:17 AM CDT Body Mass Index 33.24 06/26/2025 9:17 AM CDT Plan of Treatment Health Maintenance Due [...] (2 of 2 - PCV) 07/22/2022 07/22/2021 Hemoglobin A1C 04/05/2025 10/06/2024, 11/05/2012 Covid-19 Vaccine (3 - 2024-2 6 season) 2025 09/10/2021, 11/04/2020 Influenza Vaccine (#1) 2025 3, 05/22/2021, 08/04/2020, Additional history exists Lipid Panel 10/06/2025 10/06/2024, 12/2012, 11/05/2012, Additional history exists eGFR 10/09/2025 10/09/2024, 04/2025, 10/07/2024, Additional history exists Medical Devices Implanted Type Area Community Health Nurse Device Identifier Shelf Expiration Date Model / Serial / Lot Medtronic Inc Tyrx Absorbable Antibacterial Envelope Med 2.7x2.5in [id number] - [id number] Implanted:Qty: 1 on 10/09/2024 by Roc Dumont MD at [facility] Other - see comments Medtronic Inc 07/07/2025 [id number] / / [id number] Description:Tyrx envelope Medtronic Inc [place] S Mri Surescan 50.8x46.6mm 2 Chamber 7.4mm Pacemaker 22.5gm [id number] - [id number] - [id number] Implanted:Qty: 1 on 10/09/2024 by Roc Dumont MD at [facility] Pacemaker Medtronic Inc 11/10/2025 [id number] / [id number] / [employer] Device Vascular Closure Femoral Artery Bioabsorbable Dual Method Vascade 6-7fr Collagen [id number] - [id number] Implanted:Qty: 1 on 10/09/2024 by Roc Dumont MD at [facility] Vascular Closure Device [employer] 06/15/2026 [id number] / / [id number] Procedures Procedure Name Priority Date/Time Associated Diagnosis Comments DEVICE CHECK - IN OFFICE Routine 06/26/2025 8:53 AM CDT Complete atrioventricular block (HCC) Encounter for interrogation of cardiac pacemaker EGFR Routine 10/09/2024 8:39 PM PRIVATE HOUSEHOLD WORKER HEMOGLOBIN A1C Routine 10/06/2024 8:25 PM PRIVATE HOUSEHOLD WORKER LIPID PANEL Routine 10/06/2024 8:25 PM PRIVATE HOUSEHOLD WORKER SCREENING MAMMOGRAM BILATERAL W JUAN CARLOS Routine 09/29/2017 12:59 PM PRIVATE HOUSEHOLD WORKER from Last 3 Months or Most Recently Relevant to Health Maintenance Results * DEVICE CHECK - IN OFFICE (06/26/2025 8:53 AM CDT) Anatomical Region Laterality Modality Other 06/26/2025 06/26/2025 Narrative 07/06/2025 9:03 AM PRIVATE HOUSEHOLD WORKER Supervising MD: Dr Migdalia Hampton 59 y/o F h/o CHB with Medtronic dual chamber ICD seen in clinic for device evaluation and OV with Dr Hampton In-clinic interrogation of pacemaker Incision Site: Midline abdominal site without inflammation or adherence Device Functionality Device: Normal function Lead trends: Appear stable Estimated battery longevity: 8 years 1 month Atrial pacin.79% RV pacin.98% Interrogation Presenting rhythm: AP-CASHIER TUBE ROOM Underlying rhythm: CHB-CASHIER TUBE ROOM @ 40 bpm Episodes Counters since 05/15/2025 Ventricular high-rate episodes: none Atrial high-rate episodes: none AT/AF [place]: 0% Programming Changes: none Plan: Patient to continue following local EP for device care and remote monitoring. Mili Oliveros MSN, paper grader Note Migdalia Hampton MD - 07/06/2025 Supervising MD: Dr Migdalia Hampton 59 y/o F h/o CHB with Medtronic dual chamber ICD seen in clinic for deviceevaluation and OV with Dr Hampton In-clinic interrogation of pacemaker Incision Site: Midline abdominal site without inflammation or adherence Device Functionality Device: Normal function Lead trends: Appear stable Estimated battery longevity: 8 years 1 month Atrial pacin.79% RV pacin.98% Interrogation Presenting rhythm: AP-CASHIER TUBE ROOM Underlying rhythm: CHB-CASHIER TUBE ROOM @ 40 bpm Episodes Counters since 05/15/2025 Ventricular high-rate episodes: none Atrial high-rate episodes: none AT/AF [place]: 0% Programming Changes: none Plan: Patient to continue following local EP for device care and remotemonitoring. Mili Oliveros MSN, RN Migdalia Hampton MD CV CARDIAC SERVICES PROCEDURES Final Result * (ABNORMAL) eGFR (10/09/2024 8:39 PM PRIVATE HOUSEHOLD WORKER) eGFR 47(L) >=60 mL/min/1. 73 m2 Comment: [...] last reviewed 2021. Blood 10/09/2024 8:39 PM PRIVATE HOUSEHOLD WORKER 10/09/2024 9:23 PM PRIVATE HOUSEHOLD WORKER Migdalia Hampton MD LAB BLOOD ORDERABLES Final Res ult [facility] Department [place] [address] * (ABNORMAL) Hemoglobin A1c (10/06/2024 8:25 PM PRIVATE HOUSEHOLD WORKER) Hgb A1C 9.1(H) 4.0 - 5.6 % Estimated Average Glucose 214 mg/dL [facility] Comment: The ADA recommends reporting an estimated Average Glucose (eAG) with all Hemoglobin A1c results using the equation derived from a study of 507 normal and diabetic adults. Minority populations were underrepresented and children were not included. (Diabetes Care 2020; 43(S1): S66-S76). The eAG is not equivalent to a fasting glucose. Blood 10/06/2024 8:25 PM PRIVATE HOUSEHOLD WORKER 10/06/2024 9:03 PM PRIVATE HOUSEHOLD WORKER us Migdalia Hampton MD LAB BLOOD ORDERABLES Final Res ult [facility] Department [place] [address] * (ABNORMAL) Lipid panel (10/06/2024 8:25 PM PRIVATE HOUSEHOLD WORKER) Cholesterol 271(H) 30 - 199 mg/dL Comment: [...] on 2018. Triglycerides 182(H) <=149 mg/dL [facility] Comment: Interpretive Data Ages < or [...] on 2018. HDL 57 >=40 mg/dL [facility] Comment: Interpretive Data Ages < or [...] 2018. LDL, calculated 180(H) <=129 mg/dL [facility] Comment: Interpretive Data Ages < or [...] on 2024. Non-HDL Cholesterol 214 mg/dL [facility] Comment: Interpretive Data Ages < or [...] last revised on 2018. Chol/HDL ratio 5 [facility] Blood 10/06/2024 8:25 PM PRIVATE HOUSEHOLD WORKER 10/06/2024 8:59 PM PRIVATE HOUSEHOLD WORKER us Migdalia Hampton MD LAB BLOOD ORDERABLES Final Res ult [facility] Department [place] [address] * Screening Mammogram Bilateral W Juan Carlos (09/29/2017 12:59 PM PRIVATE HOUSEHOLD WORKER) Anatomical Region Laterality Modality Breast Bilateral Mammography 09/29/2017 12:5 9 PM PRIVATE HOUSEHOLD WORKER Impressions 09/29/2017 2:36 PM PRIVATE HOUSEHOLD WORKER BI-RAD 1 NEGATIVE There is no mammographic evidence of malignancy. A 1 year screening mammogram is recommended. The patient has been or will be contacted. The patient will be entered into a reminder system with a target due date of 1 year for her next screening exam. Electronically signed by: Dr. Matt Beckett M.D. nh/:09/29/2017 14:34:50 Development Director: Jaqueline WHITE)(Dione), [facility] letter sent: Normal Exam Reading location: BI-RADS: 1 Negative [EOD] Narrative 09/29/2017 2:36 PM PRIVATE HOUSEHOLD WORKER - MG BILATERAL DIGITAL SCREENING MAMMOGRAM 3D/2D [...] is made to exam dated: 03/05/2010 - [facility]. BREAST TISSUE: There are scattered areas [...] is made to exam dated: 03/05/2010 - [facility]. BREAST TISSUE: There are scattered areas [...] by: Dr. Matt Beckett M.D. nh/:09/29/2017 14:34:50 Development Director: Jaqueline WHITE)(M), [facility] letter sent: Normal Exam Reading location: BI-RADS: 1 Negative [EOD] us Timothy Fierro MD IMG MAMMO PROCEDURES Final Result from Last 3 Months or Most Recently Relevant to Health Maintenance Insurance [facility] Advance Directives For more information, please contact: [phone] * Full Code (Latest Code Status on File) Date Activated Date Inactivated Comments 10/06/2024 1:31 PM 10/10/2024 7:57 PM Care Teams Director Channel Relationship Specialty Start Date End Date Bessie Mora NP [address] [place] [address] PCP - General Family Medicine 10/10/24
[2025-08-07] MEDS: FUROSEMIDE INJ 40 MG/4 ML VIAL IV PUSH (20:18)
--- NOTE | 2025-08-07 20:18 | PC.NURSE ---
per araseli ELMORE OK to place pt on purewick d/t need for lasix
[2025-08-07 21:00] VITALS: BP 132/84; PULSE 70; RESP 20; O2SAT 91
[2025-08-07 21:15] VITALS: BP 145/87; PULSE 70; RESP 20; O2SAT 90
--- NOTE | 2025-08-07 21:38 | PC.NURSE ---
Pt. reports chronic bilateral leg cramping that she takes tylenol at home to relieve. Pt. requesting Tylenol. PA notified and verbal order given. Pt. also reports improvement in SOB since receiving lasix. Pt. states I feel much better.
[2025-08-07] MEDS: ACETAMINOPHEN 500 MG TABLET 1000 MG PO (21:39)
[2025-08-07 22:31] VITALS: BP 121/64; PULSE 70; RESP 21; O2SAT 93
[2025-08-07 23:15] VITALS: BP 122/78; PULSE 71; RESP 29; TEMP 37.1; O2SAT 91
[2025-08-08] VITALS (10 sets, daily range): BP systolic 112–140; BP diastolic 59–75; PULSE 60–77; RESP 14–18; TEMP 35.9–36.6; O2SAT 93–98; BMI 32.0
--- NOTE | 2025-08-08 | ECHO_ITS ---
Patient Info Name: Marlys Rodriguez Amigo Age: 59 years : 1965 Gender: Female Ht: 60 in Wt: 163 lbs BSA: 1.80 m2 HR: 60 bpm BP: 120 / 62 mmHg Technical Quality: Fair Exam Date: 08/08/2025 12:06 PM Patient Status: I Admit Date: 08/07/2025 Exam Type: CA echo dop color flow w con Complete two-dimensional, color flow and Doppler transthoracic echocardiogram is performed with contrast to opacify the left ventricle and to improve the deliniation of the left ventricle endocardial borders. Staff Referring Physician: Afshan Woo Radiosonde Operator: Agustin Evans III Attending Provider: Nicolasa Espinoza DO Contrast/Agitated Saline Contrast/Ag. Saline: Definity Amount: 2.00 ml Administered By: Agustin Evans III Existing IV Access: Yes IV Access Condition: patent with no signs of infiltration Summary 1. Left ventricular systolic function is normal, estimated at 60-65. 2. The left ventricular diastolic function is grade I diastolic dysfunction. 3. There is mild mitral valve regurgitation. 4. There is mild mitral valve calcification. Left Ventricle Left ventricular chamber dimension is normal. Left ventricular systolic function is normal, estimated at 60-65. There is no increased left ventricular wall thickness. Left ventricular septal wall motion is normal. The left ventricular diastolic function is grade I diastolic dysfunction. Right Ventricle Right ventricular chamber dimension is normal. Right ventricular systolic function is normal. Left Atria Left atrial chamber dimension is mildly enlarged. Right Atria Right atrial chamber dimension is normal. Aortic Valve The aortic valve is probable trileaflet. There is no aortic valve sclerosis. There is no aortic valve stenosis. There is no aortic valve regurgitation. There is mild aortic valve calcification. Pulmonic Valve The pulmonic valve is normal. There is no pulmonic valve stenosis. There is no pulmonic regurgitation. Mitral Valve The mitral valve has normal leaflets. There is no mitral valve stenosis. There is mild mitral valve regurgitation. There is mild mitral valve calcification. Tricuspid Valve The tricuspid valve leaflets are normal. There is no significant tricuspid valve stenosis. There is no tricuspid valve regurgitation. Pericardium/Pleural The pericardium appears normal. There is no pericardial effusion. Inferior Vena Cava Normal inferior vena cava with >50% collapse upon inspiration consistent with normal right atrial pressure, 5 mmHg. Aorta The aortic root size at the sinus of Valsalva is normal. The prox ascending aorta size is normal. Left Ventricular Outflow Tract Name Value Normal LVOT 2D LVOT Diameter 2.0 cm LVOT Doppler LVOT Peak Velocity 127 cm/s LVOT Peak Gradient 6 mmHg LVOT Mean Gradient 3 mmHg LVOT VTI 24 cm LVOT VTI/AV VTI Ratio 0.9 LVOT Stroke Volume 74 ml LVOT CO 5.1 l/min LVOT CI 2.9 l/min/m2 Pulmonic Valve Name Value Normal PV Doppler PV Peak Velocity 84 cm/s PV Peak Gradient 3 mmHg PV Mean Gradient 1 mmHg Mitral Valve Name Value Normal MV Doppler MV Peak Gradient 13 mmHg MV Mean Gradient 7 mmHg MV Area (Cont Eq VTI) 1.5 cm2 MV Regurgitation Doppler MR Peak Gradient 137 mmHg MV Diastolic Function MV E Peak Velocity 139 cm/s MV A Peak Velocity 174 cm/s MV E/A 0.8 MV Decel Time (PW) 319 ms MV Annular TDI MV E/e' (Septal) 19.7 MV E/e' (Lateral) 21.9 MV E/e' (Average) 20.8 Tricuspid Valve Name Value Normal Estimated PAP/RSVP RA Pressure 5 mmHg <=5 Aortic Valve Name Value Normal AV Doppler AV Peak Velocity 135 cm/s AV Peak Gradient 7 mmHg AV Mean Gradient 4 mmHg AV VTI 27 cm AV Area (Cont Eq VTI) 2.7 cm2 >=3.0 AV Area (Cont Eq Kannan) 2.9 cm2 AV DI (Kannan) 0.94 AV Regurgitation 2D LVOT Area 3.1 cm2 Ventricles Name Value Normal LV Dimensions 2D/MM IVS Diastolic Thickness (2D) 0.7 cm 0.6-1.0 LVID Diastole (2D) 4.2 cm 3.8-5.2 LVIW Diastolic Thickness (2D) 0.7 cm 0.6-0.9 LVID Systole (2D) 3.2 cm 2.2-3.5 LVOT Diameter 2.0 cm LV Mass (2D Cubed) 82.28 g 67.00-162.00 LV Mass Index (2D Cubed) 46 g/m2 43-95 Relative Wall Thickness (2D) 0.32 <=0.42 LV Fractional Shortening/Ejection Fraction 2D/MM LV Fractional Shortening (2D) 24 % 27-45 LV EF (2D Teichholz) 48 % LV Diastolic Volume (4C MOD) 69 ml LV EF (4C MOD) 50 % LV Diastolic Volume (2C MOD) 62 ml LV EF (2C MOD) 60 % LV Diastolic Volume (BP MOD) 68 ml 46-106 LV Diastolic Volume Index (BP MOD) 38 ml/m2 29-61 LV Systolic Volume (BP MOD) 32 ml 14-42 LV Systolic Volume Index (BP MOD) 17 ml/m2 8-24 LV EF (BP MOD) 53 % 54-74 LV Diastolic Length (4C) 6.6 cm LV Systolic Length (4C) 5.7 cm LV Stroke Volume (4C MOD) 35 ml Atria Name Value Normal LA Dimensions LA Volume (4C A-L) 41 ml LA Volume (BP A-L) 53 ml Report Signatures
--- NOTE | 2025-08-08 00:14 | WPCEDHO ---
ED Hand Off Checklist All vitals saved:Y IV Site documented:Y All med administrations documented:Y Triage Note Triage Note patient woke this AM at 0100 08/07/25 18:24 feeling SOB and stated that she feels that she has not been breathing right since. denies any fevers, new cough, congestion Allergies azithromycin Adverse Reaction (Severe, Verified 08/07/25 14:27) Gastrointestinal Upset diphenhydramine (From Benadryl) Adverse Reaction (Verified 08/07/25 14:27) Palpitations Family History (Last Reviewed 10/22/24 @ 01:29 by Camille Caballero MD) Mother Peripheral vascular disease Sibling Diabetes mellitus Administered/Completed Medications Discontinued Medications Acetaminophen (Acetaminophen 500 Mg Tablet) 1,000 mg PO ONCE STA Stop: 08/07/25 21:34 Last Admin: 08/07/25 21:39 Dose: 1,000 mg Documented By: SAWYER Acetaminophen (Acetaminophen 500 Mg Tablet) Confirm Administered Dose 500 mg .ROUTE .STK-MED ONE Stop: 08/07/25 21:44 Last Admin: 08/07/25 21:55 Dose: Not Given Documented By: SAWYER Non-Admin Reason: Duplicate Dose Furosemide (Furosemide Inj 40 Mg/4 Ml Vial) 40 mg IV PUSH ONCE STA Stop: 08/07/25 20:07 Last Admin: 08/07/25 20:18 Dose: 40 mg Documented By: PEPE Horn 08/07/25 21:38 Nurse Note by Kalpana Bautista Pt. reports chronic bilateral leg cramping that she takes tylenol at home to relieve. Pt. requesting Tylenol. PA notified and verbal order given. Pt. also reports improvement in SOB since receiving lasix. Pt. states I feel much better. Initialized on 08/07/25 21:38 - END OF NOTE 08/07/25 20:18 Nurse Note by Brandi Pineda, OK to place pt on kaelynck d/t need for lasix Initialized on 08/07/25 20:18 - END OF NOTE Interventions/Assessments IV / Saline Lock, Insert Start: 08/07/25 14:24 Freq: Status: Active Protocol: Document 08/07/25 18:18 SAWYER (Rec: 08/07/25 18:19 BOBBIT [id number]) IV Assessment Peripheral Access Left Forearm IV Catheter Access Initiated IV Insertion Date 08/07/25 IV Insertion Time 18:00 Catheter Gauge 20 IV Insertion 1 Attempts Ultrasound Used for No Placement IV Site Assessment WNL IV Care and WNL Maintenance PA: Cardiovascular Assessment Start: 08/07/25 14:24 Freq: Status: Active Protocol: Document 08/07/25 18:24 PEPE (Rec: 08/07/25 19:46 PEPE [id number]) Cardiovascular Assessment Cardiovascular Dyspnea Symptoms PA: Respiratory Assessment Start: 08/07/25 14:24 Freq: Status: Active Protocol: Document 08/07/25 18:24 PEPE (Rec: 08/07/25 19:46 PEPE [id number]) Respiratory Assessment Symptoms Shortness of Breath With Exertion Last Vital Signs Temperature 98.8 F 08/07/25 23:15 Pulse Rate 71 08/07/25 23:15 Respiratory Rate 29 H 08/07/25 23:15 Pulse Oximetry 91 08/07/25 23:15 Blood Pressure 122/78 08/07/25 23:15 Blood Pressure Mean 93 08/07/25 23:15 Oxygen Delivery Room Air 08/07/25 14:24 Weight 77.3 kg 08/07/25 18:24 Last Result - Abnormals Only MPV 10.5 fl (7.4-10.4) H 08/07/25 17:38 Sodium 134 mmol/L (137-145) L 08/07/25 17:38 Carbon Dioxide 20 mmol/L (22-30) L 08/07/25 17:38 BUN 19 mg/dL (7-17) H 08/07/25 17:38 Glucose 339 mg/dL (65-110) H 08/07/25 17:38 POC Capillary Glucose 182 mg/dl (65-105) H 08/07/25 21:30 Alkaline Phosphatase 130 U/L (38-126) H 08/07/25 17:38 NT-Pro-B Natriuret Pep 2350 pg/mL (19.9-100) H 08/07/25 17:38 Most Recent Suicide Severity Rating Suicide Severity Rating NO RISK INDICATED 08/07/25 18:24
--- NOTE | 2025-08-08 00:47 | ADMGEN ---
This patient, Marlys Rai, was admitted to [facility] Surg Room 325-01. Patient/family oriented to hospital policies and general routines including ID bracelet, bed and alarms, visiting hours, pain management, procedures, bathroom and other care routines, personal items, smoking policy, room service/diet, and visiting hours. Information on how to activate the Rapid Response Team has been discussed. Patient/Family are encouraged to report perceived risks to care and to ask questions if they do not understand what they are told or what they should do.
--- NOTE | 2025-08-08 05:39 | P.HP_ITS ---
H&P: HPI History of Present Illness Date/Time: 08/08/25 05:39 Chief Complaint: Difficulty breathing Narrative: 59-year-old female with a past medical history of coronary artery disease, type 2 diabetes mellitus, essential hypertension, septal defect with surgical repair, mitral valve repair, pacemaker placement due to AV wero block, poorly controlled diabetes mellitus on insulin therapy and intermittent difficulties with medication compliance who presented to the ER via EMS from home due to shortness of breath that woke her from sleep. The patient reports that in hindsight she has probably been more short of breath with activity the last 3 or 4 days. But last night when she got up to go to the bathroom she did not feel bad. But when she went to lay back down she became panicked and felt as if she was drowning. She then proceeded to go to the kitchen table and put a pillow on the kitchen table in sleep leaning forward in order to feel more comfortable. She does admit that she has been eating food that probably it is too high in salt. She does not wear self on a regular basis. She has not been on diuretic therapy in several months due to prior issues with dehydration. She has not noticed any lower extremity swelling or abdominal distension. She does not wear self. She is suspected to have obstructive sleep apnea and she states that it was mentioned to her in the past that she should have a sleep study but she states that no one ever ordered a sleep study. She denies any significant cough for congestion. She has not had any fevers or chills. She has not had any chest pain or palpitations. She has been compliant with her other cardiac medications. She followed up with her food beverage manager regarding her pacemaker this past month and she stated that the doctor wanted to do a study to look at her valves. She does not think that that study was ordered. She has chronic urinary frequency and has to get up 2-3 times a night but this is not changed from baseline. Patient was maintaining oxygen saturations on room air rest. But given her report of dyspnea on exertion ER staff performed a ambulatory pulse ox in patient's oxygen saturations were dropping down to 85% on room air. Chest x-ray performed in the ER demonstrated severe cardiomegaly and mild congestive changes with small bilateral pleural effusions. BNP was mildly elevated at 2350. Patient received a dose of Lasix in the ER with improvement in symptoms. Review of Systems 2 Review of Systems: 12 systems were reviewed with pertinent positives and negatives per HPI. Except as documented in the HPI, all other systems were reviewed and are negative. [facility] Past Medical History Medical History Peripheral neuropathy Psoriasis Pulmonary hypertension Coronary artery disease (~11/2017) Cardiac catheterization per Dr. Montalvo demonstrated distal 1st diagonal vessel total occlusion status post angioplasty and stent placement. Eczema Gastroesophageal reflux disease Vitamin D deficiency Depression with anxiety Restless leg syndrome Osteoarthritis Diabetic peripheral neuropathy AV block Status post atrial pacemaker insertion. Valvular heart disease Status post mitral valve repair. ADARSH September 18, 2019 showed moderate to severe mitral valve calcification with decreased movement and evidence of moderate mitral valve regurgitation. Septal defect Patient on certain whether this was an ASD or VSD repair, done at the age of 39. Hyperlipidemia Hypertension Insulin dependent type 2 diabetes mellitus Hemoglobin A1c was 9.8% in July 2019. Seasonal allergies Anemia With history of blood transfusion. Previous known suicide attempt CHF (congestive heart failure) Myocardial infarction x2 Surgical History Surgical History History of cardiac catheterization (~11/2017) Status post angioplasty and stent placement to distal 1st diagonal per Dr. Montalvo. History of permanent cardiac pacemaker placement x2 History of History of sternectomy Repaired hole in heart, patient unsure whether it was in atrial or ventricular septal defect. Family History Family History Mother Peripheral vascular disease Sibling Diabetes mellitus Social History Social History (Updated 08/08/25 @ 09:10 by Nicolasa Espinoza DO) Social History: The patient currently lives in her own home with her boyfriend have been together since 2013. . She is on disability. She is a lifelong nonsmoker and denies alcohol and drug abuse. She designates her daughter, Preethi Rai, as her surrogate decision maker and she wishes to be a full code. The patient has 1 biological child and then has adopted another child. Smoking status: Never smoker Second hand tobacco smoke exposure: No Alcohol intake: never Substance use: never Substance use type: does not use Lack of Transportation: No Lack of Food: Never True Current Housing: I Have Housing Concerned About Future Housing: No Difficulty Paying Gas/Electric Bills: YES Difficulty Paying for Meds: No Currently Unemployed: No Education: High School Diploma/GED Difficulty w/ Childcare or Family Care: No Gender identity (if verbalized by the patient): Female Spiritual care concerns: No Agree to blood products: Yes Meds Home Medications and Allergies Home Medications ?Medication ?Instructions ?Recorded ?Confirmed ?Type aspirin 81 mg tablet,delayed 81 mg PO DAILY 07/05/19 1 10/09/24 History release (Adult Low Dose Aspirin) pantoprazole 40 mg tablet,delayed 40 mg PO DAILY 07/0508/08/25 History release metoprolol tartrate 25 mg tablet 25 mg PO BID 10/12/19 08/08/25 History rosuvastatin 20 mg tablet 20 mg PO DAILY 08/03/2007/30 History insulin glargine 100 unit/mL (3 45 unit subcut HS 05/2108/08/25 History mL) subcutaneous pen (Basaglar KwikPen U-100 Insulin) lisinopril 5 mg tablet 2.5 mg PO DAILY 01/28/2406/23 History ezetimibe 10 mg tablet 10 mg PO DAILY 06/06/2407/30 History acetaminophen 500 mg tablet 500 mg PO Q6H PRN pain 06/2308/08/25 History (Acetaminophen Extra Strength) azelastine 137 mcg (0.1 %) nasal 1 spray intranasal DA SREEDHAR 08/08/25 08/08/25 History spray fluticasone propionate 50 2 spray intranasal Q12H 07/3008/08/25 History mcg/actuation nasal spray,suspension montelukast 10 mg tablet 10 mg PO DAILY PRN sinisus 1 10/09/24 08/08/25 History sertraline 50 mg tablet 50 mg PO DAILY depression 08/08/25 History Allergies Allergy/AdvReac Type Severity Reaction Status Date / Time azithromycin AdvReac Severe Gastrointestinal Verified 08/08/25 01:17 Upset diphenhydramine (From AdvReac Palpitation Verified 08/08/25 01:17 Benadryl) s Vital Signs Vital Signs - 24 hr 08/07/25 14:24 08/07/25 21:00 08/07/25 21:15 Temperature 98.4 F Pulse Rate 90 70 70 Respiratory Rate 18 20 20 Blood Pressure 137/57 L 132/84 145/87 H Pulse Oximetry 94 91 90 Oxygen Delivery Room Air 08/07/25 22:31 08/07/25 23:15 08/08/25 01:34 Temperature 98.8 F 97.0 F L Pulse Rate 70 71 70 Respiratory Rate 21 H 29 H 16 Blood Pressure 121/64 122/78 120/62 Pulse Oximetry 93 91 95 Oxygen Delivery 08/08/25 04:00 Temperature Pulse Rate 60 Respiratory Rate Blood Pressure Pulse Oximetry Oxygen Delivery Exam 2 Narrative: Weight 74.3 kg BMI 32 Const: Other: Appears older than stated age, no acute distress, lying in bed with head of bed at 30? HENMT: Other: Mucous membranes are tacky, no oral pharyngeal erythema, crowded posterior oropharynx, edentulous in upper and lower jaw Eyes: Other: Pupils are equal and reactive, no scleral icterus, no conjunctival pallor Neck: Other: Large neck circumference, no obvious JVD Resp: Other: Clear to auscultation bilaterally, no increased work of breathing Cardio: Other: Regular rate, no murmur, 2+ bilateral radial pedal pulses GI: Other: Soft, obese, nontender Skin: Other: Generalized pallor, non jaundice Neuro: Other: Alert oriented x4, speech is clear, no facial asymmetry, no localizing neurologic deficits noted during conversation Extrem: Other: No clubbing, cyanosis or edema Psych: Other: Appropriate mood and affect, pleasant and cooperative, judgment and insight intact Results Labs Labs: Laboratory Tests 08/07/25 17:38 08/07/25 17:38 08/07/25 08/07/25 17:38 21:30 WBC 6.1 RBC 4.56 Hgb 13.3 D Hct 39.2 MCV 86.0 MCH 29.2 MCHC 33.9 RDW 12.8 Plt Count 205 MPV 10.5 H Immature Gran % (Auto) 0.2 Neut % (Auto) 67.9 Lymph % (Auto) 22.7 [place] % (Auto) 6.9 Eos % (Auto) 1.6 Baso % (Auto) 0.7 Lymph # (Auto) 1.38 [place] # (Auto) 0.4 Eos # (Auto) 0.1 Baso # (Auto) 0.0 Abs Immat Gran (auto) 0.01 Absolute Neuts (auto) 4.1 Absolute Nucleated RBC 0.000 Nucleated RBC % 0.0 PT 13.1 INR 1.0 APTT 31.1 Sodium 134 L Potassium 4.2 Chloride 105 Carbon Dioxide 20 L Anion Gap 9 BUN 19 H Creatinine 0.94 Estim Creat Clear Calc 51 Estimated GFR > 60 Glucose 339 H POC Capillary Glucose 182 H Calcium 8.8 Total Bilirubin 1.3 AST 25 ALT 27 Alkaline Phosphatase 130 H Troponin I < 0.012 NT-Pro-B Natriuret Pep 2350 H Total Protein 6.9 Albumin 4.0 Impressions Chest X-Ray 08/07/25 16:45 IMPRESSION: 1. Postoperative changes of the heart with severe cardiomegaly. 2. Mild congestive heart failure with small bilateral pleural effusion. EKG:Test Date: 2025-08-07 17:36:14 Measurements Intervals [place] Rate: 75 P: 12 KS: 226 QRS: -51 QRSD: 188 T: 87 QT: 474 QTc: 531 Interpretive Statements ATRIAL SENSE- ELECTRONIC VENTRICULAR PACEMAKER BASELINE ARTIFACT- I, II, III, AVR, AVL, AVF NO FURTHER INTERPRETATION IS POSSIBLE ATYPICAL ECG Compared to ECG 10/21/2024 23:33:39 HEAR RATE HAS DECREASED Quality VTE Prophylaxis VTE prophylaxis: pharmacologic ordered (Lovenox 40 mg subQ daily.) Assessment and Plan Assessment and plan (1) CHF (congestive heart failure): Qualifiers: Heart failure type: other Qualified Code(s): I50.9 - Heart failure, unspecified Code(s): I50.9 - Heart failure, unspecified Status: Acute (2) Pulmonary hypertension: Code(s): I27.20 - Pulmonary hypertension, unspecified Status: Acute (3) Hypoxia: Code(s): R09.02 - Hypoxemia Status: Acute (4) Type 2 diabetes mellitus with hyperglycemia, with long-term current use of insulin: Code(s): E11.65 - Type 2 diabetes mellitus with hyperglycemia; Z79.4 - extermination inspector (current) use of insulin Status: Acute Plan Patient has acute on chronic CHF exacerbation. CHF exacerbation is most likely due to severe pulmonary hypertension and or diastolic dysfunction. CHF exacerbation as resulting in episodes of hypoxia with ambulation with saturations down to 85% with activity noted in the ER. It looks like the patient had been on Lasix in the past but had been discontinued due to an episode of acute kidney injury. Will give patient IV Lasix 40 mg daily and monitor strict I&O's. If the symptoms have improved in the next 24-48 hours will attempt 6 minute walk test to see the patient may need oxygen therapy with ambulation. Will otherwise continue the patient's home cardiac medications including metoprolol and lisinopril. In the past patient had been on Jardiance but this has not been filled in quite some time. Patient does not have systolic function that would require Jardiance as standard of care. However will check echocardiogram to her re-evaluate the patient's current cardiac structure and function as the last echo was over a year ago. Patient does have chronic QT prolongation but has atrial since pacemaker in place. Will avoid QT prolonging medications when possible. Patient does have insulin-dependent diabetes mellitus in is currently hyperglycemic. Will continue patient's home long- acting insulin and will add moderate dose sliding scale insulin with Accu-Cheks a.c. HS and hypoglycemia protocol. Patient has been admitted as observation status. MEDICAL DECISION MAKING NARRATIVE -Spoke with the ED provider in detail regarding patient's evaluation, workup and management -Patient seen and examined at bedside -Collaborated with patient's nurse at the bedside in detail and addressed all concerns -Labs, electrolytes, radiology, investigations and test results personally reviewed and interpreted unless otherwise specified -ED/Consult/Nursing/Ancilliary notes on the chart reviewed and appreciated -applicable past medical records and labs were reviewed and unless stated otherwise. -Spoke with patient at bedside and diagnosis, plan of care was discussed and questions answered. Hospitalist [facility] Advance Care Plan I have confirmed that the patient's Advanced Care Plan is present, code status is documented, or surrogate decision maker is listed in patient medical record.: Yes Medication Reconciliation I have utilized all available resources to obtain, update and review the patients current medications (includes all prescriptions, OTC, herbals, cannabis, and nutritional supplements).: Yes
[2025-08-08 08:39] LABS: Hematocrit 44.9 % (37.0-47.0); Hemoglobin 15.2 g/dL (12.0-15.0); Mean Corpuscular HGB Conc 33.9 g/dl (32-36); Mean Corpuscular Hemoglobin 29.2 pg (26-34); Mean Corpuscular Volume 86.3 fl (80-100); Platelet Count Result 217 k/mm3 (150-375); Red Blood Count 5.20 M/mm3 (4.2-5.4); White Blood Count 4.8 K/mm3 (4.5-10.0)
--- NOTE | 2025-08-08 08:42 | P.PNIM_ITS ---
Assessment and Plan Assessment and Plan (1) Acute on chronic diastolic congestive heart failure: Code(s): I50.33 - Acute on chronic diastolic (congestive) heart failure Status: Acute Assessment and Plan: -presented with dyspnea, hypoxia - Echo 12/2023 with EF 68%. Repeat echo pending. - CXR with severe cardiomegaly, mild CHF with small bilateral pleural effusions - proBNP 2350 -received IV Lasix overnight with good response. Patient is on room air with clear lungs, will convert to p.o.. - Na/fluid restriction, strict I&Os, daily weights - monitor electrolytes - recommend continued outpatient follow-up with patient's steno typist in [place] (2) Acute respiratory failure: Code(s): J96.00 - Acute respiratory failure, unspecified whether with hypoxia or hypercapnia Status: Acute Assessment and Plan: - with tachypnea, spO2 85% on RA with ambulation in ED - secondary to acute CHF - diuresis as above - on RA this AM. Plan for walking desat study in AM. (3) Type 2 diabetes mellitus with hyperglycemia, with long-term current use of insulin: Code(s): E11.65 - Type 2 diabetes mellitus with hyperglycemia; Z79.4 - roller pneumatic (current) use of insulin Status: Acute Assessment and Plan: - last HgbA1c - 11.3 06/07/25 - continue home lantus at reduced dose with moderate dose SSI - POCT glucose qACHS - hypoglycemia management protocol - community nutrition educator consulted (4) Nonrheumatic mitral valve regurgitation: Code(s): I34.0 - Nonrheumatic mitral (valve) insufficiency Status: Acute Assessment and Plan: - follows with cardiology in [place] (5) Hypertension: Qualifiers: Hypertension type: unspecified Qualified Code(s): I10 - Essential (primary) hypertension Code(s): I10 - Essential (primary) hypertension Status: Acute Assessment and Plan: - continue home lisinopril, metoprolol (6) CAD (coronary artery disease): Qualifiers: Associated angina: without angina Coronary Disease-Associated Artery/Lesion type: [place] artery [place] vs. transplanted heart: [place] heart Qualified Code(s): I25.10 - Atherosclerotic heart disease of [place] coronary artery without angina pectoris Code(s): I25.10 - Atherosclerotic heart disease of [place] coronary artery without angina pectoris Status: Chronic Assessment and Plan: - continue ASA, statin (7) Anxiety: Code(s): F41.9 - Anxiety disorder, unspecified Status: Acute Assessment and Plan: - continue Zoloft. Patient reported poor compliance Plan DVT prophylaxis: Lovenox Code status: full code Dispo: likely discharge 08/09 if continues to improve Medical Record Review I have reviewed the following patient records and this information was taken into consideration when formulating the assessment and plan.: previous labs Subjective Date/time seen: 08/08/25 08:42 Interval history: Patient seen and examined at bedside. Still having some mild dyspnea although appears comfortable my assessment. Denies chest pain, palpitations, lightheadedness. Admits to significant anxiety regarding her mother's cancer diagnosis. Also admits to poor compliance with some of her medications. Review of Systems Review of Systems: All systems reviewed & are unremarkable except as noted in HPI and below Exam Narrative: General: NAD, obese Eyes: EOMI ENT: neck supple Cardiovascular: Regular rate and rhythm Respiratory: Clear to auscultation, respirations even and unlabored on RA Gastrointestinal: Soft, non tender Genitourinary: no suprapubic tenderness Musculoskeletal: No edema Skin: warm, dry Neuro: Alert. Psych: Mood appropriate Objective Data Vital Signs Vital Signs: Vital Signs - 24 hr 08/07/25 14:24 08/07/25 21:00 08/07/25 21:15 Temperature 98.4 F Pulse Rate 90 70 70 Respiratory Rate 18 20 20 Blood Pressure 137/57 L 132/84 145/87 H Pulse Oximetry 94 91 90 Oxygen Delivery Room Air 08/07/25 22:31 08/07/25 23:15 08/08/25 01:34 Temperature 98.8 F 97.0 F L Pulse Rate 70 71 70 Respiratory Rate 21 H 29 H 16 Blood Pressure 121/64 122/78 120/62 Pulse Oximetry 93 91 95 Oxygen Delivery 08/08/25 04:00 08/08/25 06:00 Temperature 97.8 F Pulse Rate 60 70 Respiratory Rate 16 Blood Pressure 140/75 Pulse Oximetry 94 Oxygen Delivery Intake/Output Intake/Output: Intake & Output 08/05/25 08/06/25 08/07/25 08/08/25 23:59 23:59 23:59 23:59 Output Total 900 1600 Balance -900 -1600 Meds/Results Medications: Active Medications Generic Name Dose Route Start Last Admin Trade Name Freq PRN Reason Stop Dose Admin Acetaminophen 500 mg 08/08/25 05:47 Acetaminophen 500 Mg Tablet PO Q6H PRN pain 1-3 or fever Aspirin 81 mg 08/08/25 09:00 Aspirin 81 Mg Enteric Tablet PO DAILY PATRICK Azelastine HCl 2 spray 08/08/25 09:00 Azelastine Hcl Nasal 0.1% 137 Mcg/Spr 30 Ml Btl NASAL DAILY PATRICK Dextrose 12.5 gm 08/08/25 05:49 Dextrose 50% 25 Gm/50 Ml Syringe IV PUSH PRN PRN Hypoglycemia Protocol Ezetimibe 10 mg 08/08/25 09:00 Ezetimibe 10 Mg Tablet PO DAILY [facility] Enoxaparin Sodium 40 mg 08/08/25 09:00 Enoxaparin 40 Mg/0.4 Ml Syringe SUB-Q DAILY [facility] Fluticasone Propionate 1 spray 08/08/25 09:00 Fluticasone Propionate 0.05% Na Spr 16 Gm Btl (*Bkc) NASAL Q12HR PATRICK Furosemide 40 mg 08/08/25 09:00 Furosemide Inj 40 Mg/4 Ml Vial IV PUSH BID PATRICK Glucagon 1 mg 08/08/25 05:49 Glucagon For Inj 1 Mg Vial IM PRN PRN Hypoglycemia Protocol Glucose 15 gm 08/08/25 05:49 Glucose Oral Gel 15 Gm Of Glucse In 37.5 Gm Tube PO PRN PRN Hypoglycemia Protocol Dextrose 1,000 mls @ 100 mls/hr 08/08/25 05:49 Dextrose 5% 1,000 Ml IVPB PRN PRN Hypoglycemia Protocol Insulin Aspart 3 - 6 units 08/08/25 08:00 Insulin Aspart (*Bkc) 100 Units/Ml SUB-Q TIDWM PATRICK Protocol Insulin Glargine 36 units 08/08/25 21:00 Insulin Glargine (*Bkc) 100 Units/Ml SUB-Q HS PATRICK Lisinopril 2.5 mg 08/08/25 09:00 Lisinopril 2.5 Mg Tablet PO DAILY [facility] Metoprolol Tartrate 25 mg 08/08/25 09:00 Metoprolol Tartrate 25 Mg Tablet PO Q12HR PATRICK Montelukast Sodium 10 mg 08/08/25 05:47 Montelukast Sodium 10 Mg Tablet PO DAILY PRN sinisus Pantoprazole Sodium 40 mg 08/08/25 09:00 Pantoprazole 40 Mg Tablet PO DAILY [facility] Perflutren Lipid Microsphere 0 ml 08/08/25 06:08 Perflutren Lipid Microspheres 1.5 Ml Vial Diluted To 10 Ml Total Volume IV PUSH 08/11/25 06:08 ONCE PRN adequate visualization Protocol Rosuvastatin Calcium 20 mg 08/08/25 09:00 Rosuvastatin 20 Mg Tablet PO DAILY [facility] Sertraline HCl 50 mg 08/08/25 09:00 Sertraline Hcl 50 Mg Tablet PO DAILY [facility] Radiology Results: ITS Impressions Chest X-Ray 08/07/25 16:45 IMPRESSION: 1. Postoperative changes of the heart with severe cardiomegaly. 2. Mild congestive heart failure with small bilateral pleural effusion. Labs Labs: Laboratory Results - last 24 hr 08/07/25 08/07/25 17:38 21:30 WBC 6.1 RBC 4.56 Hgb 13.3 D Hct 39.2 MCV 86.0 MCH 29.2 MCHC 33.9 RDW 12.8 Plt Count 205 MPV 10.5 H Immature Gran % (Auto) 0.2 Neut % (Auto) 67.9 Lymph % (Auto) 22.7 [place] % (Auto) 6.9 Eos % (Auto) 1.6 Baso % (Auto) 0.7 Lymph # (Auto) 1.38 [place] # (Auto) 0.4 Eos # (Auto) 0.1 Baso # (Auto) 0.0 Abs Immat Gran (auto) 0.01 Absolute Neuts (auto) 4.1 Absolute Nucleated RBC 0.000 Nucleated RBC % 0.0 PT 13.1 INR 1.0 APTT 31.1 Sodium 134 L Potassium 4.2 Chloride 105 Carbon Dioxide 20 L Anion Gap 9 BUN 19 H Creatinine 0.94 Estim Creat Clear Calc 51 Estimated GFR > 60 Glucose 339 H POC Capillary Glucose 182 H Calcium 8.8 Total Bilirubin 1.3 AST 25 ALT 27 Alkaline Phosphatase 130 H Troponin I < 0.012 NT-Pro-B Natriuret Pep 2350 H Total Protein 6.9 Albumin 4.0
[2025-08-08] MEDS: AZELASTINE HCL NASAL 0.1% 137 MCG/SPR 30 ML BTL 2 SPRAY NASAL (08:43)
[2025-08-08] MEDS: SERTRALINE HCL 50 MG TABLET PO (08:43)
[2025-08-08] MEDS: FLUTICASONE PROPIONATE 0.05% NA SPR 16 GM BTL (*BKC) 1 SPRAY NASAL (08:43)
[2025-08-08] MEDS: EZETIMIBE 10 MG TABLET PO (08:43)
[2025-08-08] MEDS: PANTOPRAZOLE 40 MG TABLET PO (08:43)
[2025-08-08] MEDS: FUROSEMIDE INJ 40 MG/4 ML VIAL IV PUSH (08:43)
[2025-08-08] MEDS: ASPIRIN 81 MG ENTERIC TABLET PO (08:43)
[2025-08-08] MEDS: ROSUVASTATIN 20 MG TABLET PO (08:43)
[2025-08-08] MEDS: METOPROLOL TARTRATE 25 MG TABLET PO ×2 (08:57→21:48)
[2025-08-08 09:03] LABS: Anion Gap 8 mmol/L (4-12); Blood Urea Nitrogen 18 mg/dL (7-17); Calcium 9.3 mg/dL (8.4-10.2); Carbon Dioxide 25 mmol/L (22-30); Chloride 103 mmol/L (98-107); Estimated CRCL calculation 47 ml/min; Estimated Glomerular Filt Rate 57; Glucose 174 mg/dL (65-110); Magnesium 1.3 mg/dL (1.6-2.3); Potassium 3.7 mmol/L (3.4-5.0); Sodium 136 mmol/L (137-145)
[2025-08-08] MEDS: ENOXAPARIN 40 MG/0.4 ML SYRINGE SUB-Q (09:06)
[2025-08-08] MEDS: INSULIN ASPART (*BKC) 100 UNITS/ML SUB-Q ×2 (12:52→18:02)
[2025-08-08] MEDS: MAGNESIUM SULF 2 GM/WATER 50ML 2 GM/50 ML BAG IVPB (12:52)
[2025-08-08] MEDS: PERFLUTREN LIPID MICROSPHERES 1.5 ML VIAL DILUTED TO 10 ML TOTAL VOLUME IV PUSH (12:55)
--- NOTE | 2025-08-08 12:55 | IVDEFINITY ---
Prior to administration of IV Definity the patient was educated on the risks and benefits of the imaging enhancing agent including potential adverse side effects. The patient verbalized understanding. Allergies were verified. No exclusion criteria were identified and at least one of the following inclusion criteria were met: 1) physician request, 2) patient technically difficult to image (per the [place] [employer] guidelines of two or more segments not discernable within the apical view), or 3) questionable left ventricular function. ?
[2025-08-08] MEDS: INSULIN GLARGINE (*BKC) 100 UNITS/ML 36 UNITS SUB-Q (21:49)
[2025-08-09] VITALS (8 sets, daily range): BP systolic 117–151; BP diastolic 51–87; PULSE 69–74; RESP 16–18; TEMP 36.1–36.6; O2SAT 92–100
[2025-08-09 06:50] LABS: Hematocrit 46.4 % (37.0-47.0); Hemoglobin 15.9 g/dL (12.0-15.0); Immature Granulocyte Percent A 0.2 % (0-0.5); Lymphocytes Absolute Auto 1.39 K/mm3 (0.9-3.2); Mean Corpuscular HGB Conc 34.3 g/dl (32-36); Mean Corpuscular Hemoglobin 29.5 pg (26-34); Mean Corpuscular Volume 86.1 fl (80-100); Nucleated Red Blood Cells Absolute Auto 0.000 K/mm3 (0.0-0.012); Nucleated Red Blood Cells Perc 0.0 % (0.0-0.2); Platelet Count Result 235 k/mm3 (150-375); Red Blood Count 5.39 M/mm3 (4.2-5.4); White Blood Count 5.7 K/mm3 (4.5-10.0)
[2025-08-09 07:14] LABS: Anion Gap 10 mmol/L (4-12); Blood Urea Nitrogen 26 mg/dL (7-17); Calcium 9.1 mg/dL (8.4-10.2); Carbon Dioxide 25 mmol/L (22-30); Chloride 99 mmol/L (98-107); Estimated CRCL calculation 40 ml/min; Estimated Glomerular Filt Rate 46; Glucose 257 mg/dL (65-110); Magnesium 1.8 mg/dL (1.6-2.3); Potassium 4.1 mmol/L (3.4-5.0); Sodium 134 mmol/L (137-145)
[2025-08-09] MEDS: METOPROLOL TARTRATE 25 MG TABLET PO ×2 (09:14→20:54)
[2025-08-09] MEDS: ASPIRIN 81 MG ENTERIC TABLET PO (09:14)
[2025-08-09] MEDS: MONTELUKAST SODIUM 10 MG TABLET PO (09:14)
[2025-08-09] MEDS: SERTRALINE HCL 50 MG TABLET PO (09:15)
[2025-08-09] MEDS: ROSUVASTATIN 20 MG TABLET PO (09:15)
[2025-08-09] MEDS: INSULIN ASPART (*BKC) 100 UNITS/ML SUB-Q ×5 (09:15→17:40)
[2025-08-09] MEDS: FUROSEMIDE 20 MG TABLET PO (09:15)
[2025-08-09] MEDS: EZETIMIBE 10 MG TABLET PO (09:15)
[2025-08-09] MEDS: PANTOPRAZOLE 40 MG TABLET PO (09:15)
[2025-08-09] MEDS: ENOXAPARIN 40 MG/0.4 ML SYRINGE SUB-Q (09:16)
[2025-08-09] MEDS: AZELASTINE HCL NASAL 0.1% 137 MCG/SPR 30 ML BTL 2 SPRAY NASAL (09:20)
[2025-08-09] MEDS: FLUTICASONE PROPIONATE 0.05% NA SPR 16 GM BTL (*BKC) 1 SPRAY NASAL (09:50)
--- NOTE | 2025-08-09 14:04 | P.PNIM_ITS ---
Assessment and Plan Assessment and Plan (1) Acute on chronic diastolic congestive heart failure: Code(s): I50.33 - Acute on chronic diastolic (congestive) heart failure Status: Acute Assessment and Plan: -presented with dyspnea, hypoxia - Echo 08/09 with EF 60%, G1DD - CXR with severe cardiomegaly, mild CHF with small bilateral pleural effusions - proBNP 2350 -received IV Lasix with good response. Patient is on room air with clear lungs, will convert to p.o.. 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 Needs formal nocturnal O2 study tonight and outpatient sleep study. (3) Type 2 diabetes mellitus with hyperglycemia, with long-term current use of insulin: Code(s): E11.65 - Type 2 diabetes mellitus with hyperglycemia; Z79.4 - terminal clerk (current) use of insulin Status: Acute Assessment and Plan: - last HgbA1c - 11.3 06/07/25 - hyperglycemic trend - resume lantus 45u (home dose) and continue moderate dose SSI. Schedule Novolog 5u TID. - POCT glucose qACHS - hypoglycemia management protocol - community nutrition educator consulted (4) Nonrheumatic mitral valve regurgitation: Code(s): I34.0 - Nonrheumatic mitral (valve) insufficiency Status: Acute Assessment and Plan: - follows with cardiology in [place] (5) Hypertension: Qualifiers: Hypertension type: unspecified Qualified Code(s): I10 - Essential (primary) hypertension Code(s): I10 - Essential (primary) hypertension Status: Acute Assessment and Plan: - continue home lisinopril, metoprolol (6) CAD (coronary artery disease): Qualifiers: Associated angina: without angina Coronary Disease-Associated Artery/Lesion type: [place] artery [place] vs. transplanted heart: [place] heart Qualified Code(s): I25.10 - Atherosclerotic heart disease of [place] coronary artery without angina pectoris Code(s): I25.10 - Atherosclerotic heart disease of [place] coronary artery without angina pectoris Status: Chronic Assessment and Plan: - continue ASA, statin (7) Anxiety: Code(s): F41.9 - Anxiety disorder, unspecified Status: Acute Assessment and Plan: - continue Zoloft. Patient reported poor compliance Plan DVT prophylaxis: Lovenox Code status: full code Dispo: likely discharge 08/10 if continues to improve Medical Record Review I have reviewed the following patient records and this information was taken into consideration when formulating the assessment and plan.: previous labs Subjective Date/time seen: 08/09/25 14:04 Interval history: Patient seen and examined at bedside. Feeling better today, breathing improved. Needs overnight Apnea Link to assess nocturnal O2 needs. Review of Systems Review of Systems: All systems reviewed & are unremarkable except as noted in HPI and below Exam Narrative: General: NAD, obese Eyes: EOMI ENT: neck supple Cardiovascular: Regular rate and rhythm Respiratory: Clear to auscultation, respirations even and unlabored on RA Gastrointestinal: Soft, non tender Genitourinary: no suprapubic tenderness Musculoskeletal: No edema Skin: warm, dry Neuro: Alert. Psych: Mood appropriate Objective Data Vital Signs Vital Signs: Vital Signs - 24 hr 08/08/25 21:48 08/08/25 21:50 08/08/25 22:00 Temperature 97.5 F L Pulse Rate 77 71 Respiratory Rate 18 Blood Pressure 116/68 Pulse Oximetry 95 98 Oxygen Delivery Room Air 08/09/25 06:00 08/09/25 08:00 08/09/25 08:00 Temperature 97.0 F L 97.8 F Pulse Rate 70 70 72 Respiratory Rate 18 18 Blood Pressure 125/81 143/87 H Pulse Oximetry 96 96 Oxygen Delivery 08/09/25 09:14 08/09/25 12:00 Temperature 97.4 F L Pulse Rate 72 73 Respiratory Rate 16 Blood Pressure 151/51 H Pulse Oximetry 97 Oxygen Delivery Intake/Output Intake/Output: Intake & Output 08/06/25 08/07/25 08/08/2508/09/25 23:59 23:59 23:59 23:59 Intake Total 460 980 Output Total 900 3564 Balance 900 -7334 931 Meds/Results Medications: Active Medications Generic Name Dose Route Start Last Admin Trade Name Freq PRN Reason Stop Dose Admin Acetaminophen 500 mg 08/08/25 05:47 Acetaminophen 500 Mg Tablet PO Q6H PRN pain 1-3 or fever Aspirin 81 mg 08/08/25 09:00 08/09/25 09:14 Aspirin 81 Mg Enteric Tablet PO 81 mg DAILY PATRICK Administration Azelastine HCl 2 spray 08/08/25 09:00 08/09/25 09:20 Azelastine Hcl Nasal 0.1% 137 Mcg/Spr 30 Ml Btl NASAL 2 spray DAILY PATRICK Administration Dextrose 12.5 gm 08/08/25 05:49 Dextrose 50% 25 Gm/50 Ml Syringe IV PUSH PRN PRN Hypoglycemia Protocol Ezetimibe 10 mg 08/08/25 09:00 08/09/25 09:15 Ezetimibe 10 Mg Tablet PO 10 mg DAILY PATRICK Administration Enoxaparin Sodium 40 mg 08/08/25 09:00 08/09/25 09:16 Enoxaparin 40 Mg/0.4 Ml Syringe SUB-Q 40 mg DAILY PATRICK Administration Fluticasone Propionate 1 spray 08/08/25 09:00 08/09/25 09:50 Fluticasone Propionate 0.05% Na Spr 16 Gm Btl (*Bkc) NASAL 1 spray Q12HR PATRICK Administration Furosemide 20 mg 08/09/25 09:00 08/09/25 09:15 Furosemide 20 Mg Tablet PO 20 mg DAILY PATRICK Administration Glucagon 1 mg 08/08/25 05:49 Glucagon For Inj 1 Mg Vial IM PRN PRN Hypoglycemia Protocol Glucose 15 gm 08/08/25 05:49 Glucose Oral Gel 15 Gm Of Glucse In 37.5 Gm Tube PO PRN PRN Hypoglycemia Protocol Dextrose 1,000 mls @ 100 mls/hr 08/08/25 05:49 Dextrose 5% 1,000 Ml IVPB PRN PRN Hypoglycemia Protocol Insulin Aspart 3 - 6 units 08/08/25 08:00 08/09/25 11:52 Insulin Aspart (*Bkc) 100 Units/Ml SUB-Q 6 units TIDWM PATRICK Administration Protocol Insulin Glargine 36 units 08/08/25 21:00 08/08/25 21:49 Insulin Glargine (*Bkc) 100 Units/Ml SUB-Q 36 units HS PATRICK Administration Lisinopril 2.5 mg 08/08/25 09:00 08/09/25 09:15 Lisinopril 2.5 Mg Tablet PO 2.5 mg DAILY PATRICK Administration Metoprolol Tartrate 25 mg 08/08/25 09:00 08/09/25 09:14 Metoprolol Tartrate 25 Mg Tablet PO 25 mg Q12HR PATRICK Administration Montelukast Sodium 10 mg 08/08/25 05:47 08/09/25 09:14 Montelukast Sodium 10 Mg Tablet PO 10 mg DAILY PRN Administration sinisus Pantoprazole Sodium 40 mg 08/08/25 09:00 08/09/25 09:15 Pantoprazole 40 Mg Tablet PO 40 mg DAILY PATRICK Administration Rosuvastatin Calcium 20 mg 08/08/25 09:00 08/09/25 09:15 Rosuvastatin 20 Mg Tablet PO 20 mg DAILY PATRICK Administration Sertraline HCl 50 mg 08/08/25 09:00 08/09/25 09:15 Sertraline Hcl 50 Mg Tablet PO 50 mg DAILY PATRICK Administration Radiology Results: ITS Impressions Chest X-Ray 08/07/25 16:45 IMPRESSION: 1. Postoperative changes of the heart with severe cardiomegaly. 2. Mild congestive heart failure with small bilateral pleural effusion. Labs Labs: Laboratory Results - last 24 hr 08/08/25 08/08/25 08/09/25 16:32 20:54 06:40 WBC 5.7 RBC 5.39 Hgb 15.9 H Hct 46.4 MCV 86.1 MCH 29.5 MCHC 34.3 RDW 12.9 Plt Count 235 MPV 10.4 Immature Gran % (Auto) 0.2 Neut % (Auto) 62.7 Lymph % (Auto) 24.4 [place] % (Auto) 10.0 H Eos % (Auto) 1.8 Baso % (Auto) 0.9 Lymph # (Auto) 1.39 [place] # (Auto) 0.6 Eos # (Auto) 0.1 Baso # (Auto) 0.1 Abs Immat Gran (auto) 0.01 Absolute Neuts (auto) 3.6 Absolute Nucleated RBC 0.000 Nucleated RBC % 0.0 Sodium 134 L Potassium 4.1 Chloride 99 Carbon Dioxide 25 Anion Gap 10 BUN 26 H Creatinine 1.20 H Estim Creat Clear Calc 40 Estimated GFR 46 L Glucose 257 H POC Capillary Glucose 231 H 359 H Calcium 9.1 Magnesium 1.8 08/09/25 08/09/25 07:43 11:30 WBC RBC Hgb Hct MCV MCH MCHC RDW Plt Count MPV Immature Gran % (Auto) Neut % (Auto) Lymph % (Auto) [place] % (Auto) Eos % (Auto) Baso % (Auto) Lymph # (Auto) [place] # (Auto) Eos # (Auto) Baso # (Auto) Abs Immat Gran (auto) Absolute Neuts (auto) Absolute Nucleated RBC Nucleated RBC % Sodium Potassium Chloride Carbon Dioxide Anion Gap BUN Creatinine Estim Creat Clear Calc Estimated GFR Glucose POC Capillary Glucose 261 H 420 H Calcium Magnesium
[2025-08-09] MEDS: INSULIN GLARGINE (*BKC) 100 UNITS/ML 45 UNITS SUB-Q (20:54)
[2025-08-10 06:00] VITALS: BP 105/82; PULSE 70; RESP 18; TEMP 36.8; O2SAT 93
[2025-08-10 06:55] LABS: Anion Gap 7 mmol/L (4-12); Blood Urea Nitrogen 32 mg/dL (7-17); Calcium 9.2 mg/dL (8.4-10.2); Carbon Dioxide 26 mmol/L (22-30); Chloride 101 mmol/L (98-107); Estimated CRCL calculation 36 ml/min; Estimated Glomerular Filt Rate 44; Glucose 171 mg/dL (65-110); Magnesium 1.9 mg/dL (1.6-2.3); Potassium 3.9 mmol/L (3.4-5.0); Sodium 134 mmol/L (137-145)
[2025-08-10] MEDS: INSULIN ASPART (*BKC) 100 UNITS/ML SUB-Q ×3 (08:24→12:10)
[2025-08-10] MEDS: ROSUVASTATIN 20 MG TABLET PO (08:39)
[2025-08-10 08:40] VITALS: PULSE 60
[2025-08-10] MEDS: METOPROLOL TARTRATE 25 MG TABLET PO (08:40)
[2025-08-10] MEDS: PANTOPRAZOLE 40 MG TABLET PO (08:40)
[2025-08-10] MEDS: FUROSEMIDE 20 MG TABLET PO (08:40)
[2025-08-10] MEDS: EZETIMIBE 10 MG TABLET PO (08:40)
[2025-08-10] MEDS: SERTRALINE HCL 50 MG TABLET PO (08:40)
[2025-08-10] MEDS: ASPIRIN 81 MG ENTERIC TABLET PO (08:40)
[2025-08-10] MEDS: AZELASTINE HCL NASAL 0.1% 137 MCG/SPR 30 ML BTL 2 SPRAY NASAL (08:44)
--- NOTE | 2025-08-10 13:26 | P.DS_ITS ---
DS: Admitting Diagnosis Discharge Date 08/10/25 Admitting Diagnosis - acute on chronic diastolic CHF - acute respiratory failure - T2DM, uncontrolled - hypertension - anxiety DS: Discharge Diagnosis Discharge Diagnosis (1) Acute on chronic diastolic congestive heart failure: Code(s): I50.33 - Acute on chronic diastolic (congestive) heart failure Status: Acute (2) Acute respiratory failure: Code(s): J96.00 - Acute respiratory failure, unspecified whether with hypoxia or hypercapnia Status: Acute (3) Type 2 diabetes mellitus with hyperglycemia, with long-term current use of insulin: Code(s): E11.65 - Type 2 diabetes mellitus with hyperglycemia; Z79.4 - senior living (current) use of insulin Status: Acute (4) Nonrheumatic mitral valve regurgitation: Code(s): I34.0 - Nonrheumatic mitral (valve) insufficiency Status: Acute (5) Hypertension: Qualifiers: Hypertension type: unspecified Qualified Code(s): I10 - Essential (primary) hypertension Code(s): I10 - Essential (primary) hypertension Status: Acute (6) Anxiety: Code(s): F41.9 - Anxiety disorder, unspecified Status: Acute DS: Summary Hospital Course Reason for hospitalization: - acute on chronic diastolic CHF - acute respiratory failure - T2DM, uncontrolled - hypertension - anxiety Hospital Course: Ms. Marlys Rai is a 59-year-old female with a complex cardiac history, including coronary artery disease, prior CT, mitral valve repair, atrial pacemaker for AV block, pulmonary hypertension, and chronic diastolic heart failure, as well as insulin-dependent type 2 diabetes mellitus and hypertension. She presented to the emergency department with acute onset of dyspnea and hypoxia, reporting several days of worsening exertional shortness of breath and an acute episode of orthopnea that awoke her from sleep. On arrival, she was found to be hypoxic with ambulatory oxygen saturations dropping to 85% on room air. Initial workup revealed severe cardiomegaly and mild congestive changes with small bilateral pleural effusions on chest x-ray, and an elevated proBNP of 2350. Laboratory studies were notable for hyperglycemia, mild hyponatremia, and evidence of chronic kidney disease with a baseline creatinine of 1.2 and eGFR of 46. She was admitted for acute on chronic diastolic heart failure exacerbation, likely precipitated by dietary indiscretion and medication noncompliance, with secondary acute hypoxic respiratory failure. The patient was started on IV furosemide with a good diuretic response, as evidenced by significant negative fluid balance and improvement in respiratory status. She was transitioned to oral furosemide as her symptoms improved. Strict sodium and fluid restriction, daily weights, and close monitoring of electrolytes and renal function were maintained throughout her stay. Her home cardiac medications, including metoprolol, lisinopril, aspirin, and statin, were continued. She remained hemodynamically stable and was weaned to room air during the day, but continued to desaturate at night. An overnight Apnea Link study was performed, which was suggestive of obstructive sleep apnea; she was started on 2L nasal cannula oxygen at night and will require formal outpatient polysomnography for definitive diagnosis and management. Her diabetes management was optimized during admission. She was continued on her home dose of insulin glargine 45 units nightly on discharge and compliance was encouraged. The remainder of her hospital course was uncomplicated. She remained afebrile and hemodynamically stable, with gradual improvement in her symptoms. She was educated on the importance of medication adherence, dietary sodium restriction, daily weights, and follow-up with her produce service team member and primary care provider. At the time of discharge, she was stable on oral diuretics, with plans for repeat laboratory monitoring of renal function in 5-7 days, continued home insulin regimen, and outpatient sleep study scheduling. She was discharged in stable condition with close outpatient follow-up arranged. Status at Discharge Functional status at discharge: independent ambulation Time Spent with Patient Time attestation: Total time spent providing and/or coordinating discharge services: Time spent: Greater than 30 minutes Exam Narrative: General: NAD, obese Eyes: EOMI ENT: neck supple Cardiovascular: Regular rate and rhythm Respiratory: Clear to auscultation, respirations even and unlabored on RA Gastrointestinal: Soft, non tender Genitourinary: no suprapubic tenderness Musculoskeletal: No edema Skin: warm, dry Neuro: Alert. Psych: Mood appropriate DS: Data Data Completed and Pending Completed studies during hospitalization: ITS Impressions Chest X-Ray 08/07/25 16:45 IMPRESSION: 1. Postoperative changes of the heart with severe cardiomegaly. 2. Mild congestive heart failure with small bilateral pleural effusion. Labs on day of discharge: Labs from last 24 hours 08/10/25 08/10/25 08/10/25 11:27 07:51 06:11 Sodium 134 L Potassium 3.9 Chloride 101 Carbon Dioxide 26 Anion Gap 7 BUN 32 H Creatinine 1.24 H Estim Creat Clear Calc 36 Estimated GFR 44 L Glucose 171 H POC Capillary Glucose 253 H 178 H Calcium 9.2 Magnesium 1.9 08/09/25 08/09/25 08/09/25 20:42 16:28 14:26 Sodium Potassium Chloride Carbon Dioxide Anion Gap BUN Creatinine Estim Creat Clear Calc Estimated GFR Glucose POC Capillary Glucose 201 H 230 H 300 H Calcium Magnesium Discharge Plan Discharge Attending physician on discharge: Олег Sauceda Consulting providers: Lorena Villalba Discharging Clinician: Lorena Villalba Anticipated Discharge Date/Time: 08/10/25 11:26 Patient Disposition: Home Activity: as tolerated Diet: diabetic Discharge Instructions: Diagnosis:?Acute on chronic diastolic heart failure, likely obstructive sleep apnea (MEEK); diabetes mellitus. 1.?Medications * Lasix (Furosemide): * Take as prescribed for 3 more days. * Monitor for symptoms of dehydration (dizziness, lightheadedness, decreased urination). * Lantus (Insulin Glargine): * Continue 45 units subcutaneously every night. * Mealtime Insulin: * Start as directed by your primary care physician. * Monitor blood sugars as instructed. 2.?Lab Work * Repeat Labs: * Schedule repeat blood work in 3 days to check kidney function (BUN, creati nine, electrolytes). * Contact your primary care provider for lab orders and follow-up. 3.?Heart Failure Management * Daily Weights: * Weigh yourself every morning after urinating and before eating. * Record your weight and report any gain of more than 2-3 pounds in 24 hours or 5 pounds in a week. * Fluid Restriction: * Follow any fluid restriction as advised. * Low Sodium Diet: * Limit salt intake to help prevent fluid buildup. 4.?Sleep Apnea * Oxygen: * Use 2 liters per minute of oxygen via nasal cannula at night as prescribed. * Sleep Study: * Talk to your PCP to schedule a formal sleep study as an outpatient to confirm and further evaluate for obstructive sleep apnea. 5.?Diabetes Management * Continue Lantus 45 units nightly. * Start mealtime insulin as directed by your primary care physician. * Monitor blood glucose as instructed. * Keep a log of your blood sugar readings. 6.?Follow-Up * Primary Care Physician: * Schedule an appointment within 1 week or sooner if you have concerns. * Bring your weight log, blood sugar log, and any questions. * Lab Work: * Complete repeat labs as instructed and review results with your PCP. 7.?When to Seek Medical Attention * Shortness of breath at rest or worsening swelling. * Chest pain or palpitations. * Confusion, severe dizziness, or fainting. * Signs of low blood sugar (shakiness, sweating, confusion) or high blood sugar (increased thirst, urination, confusion). If you have any questions or concerns, contact your primary care provider. Summary of Zhang Instructions: * Finish Lasix for 3 more days, then get labs in 5-7 days to recheck your kidney function. * Use 2L oxygen at night. * Schedule outpatient sleep study. * Continue Lantus 45 units nightly; start mealtime insulin as directed. * Follow up with your PCP within 1 week. Patient Instructions: Antibiotic Form Patient Language: Maori Stand Alone Forms: General Discharge Information Follow-up/Referrals: Tianna,Aden Chamberlain MD [Non-Staff] - Call for Appointment Referral Note: follow-up for diastolic heart failure and determine if custodial lasix is needed Morgan,Bessie Soliz APRN [Primary Care Provider, Unknown] - Call for Appointment Referral Note: 5-7 days. Discuss sleep study, diabetes. Discharge Medications: New furosemide 20 mg Tablet 20 mg PO DAILY 3 Days Qty: 3 0RF Continued aspirin [Adult Low Dose Aspirin] 81 mg Tablet,Delayed Release (Dr/Ec) 81 mg PO DAILY pantoprazole 40 mg Tablet,Delayed Release (Dr/Ec) 40 mg PO DAILY lisinopril 5 mg tablet 2.5 mg PO DAILY metoprolol tartrate 25 mg tablet 25 mg PO BID rosuvastatin 20 mg Tablet 20 mg PO DAILY insulin glargine [Basaglar KwikPen U-100 Insulin] 100 unit/mL (3 mL) insulin pen 45 unit SUBCUT HS Patient Comments: Patient unsure if she took last night but she knows she took it this morning at 0530 ezetimibe 10 mg tablet 10 mg PO DAILY montelukast 10 mg tablet 10 mg PO DAILY PRN (Reason: sinisus) sertraline 50 mg tablet 50 mg PO DAILY azelastine 137 mcg (0.1 %) spray,non-aerosol 1 spray INTRANASAL DAILY acetaminophen [Acetaminophen Extra Strength] 500 mg tablet 500 mg PO Q6H PRN (Reason: pain) fluticasone propionate 50 mcg/actuation spray,suspension 2 spray INTRANASAL Q12H Other Ambulatory Orders: Basic Metabolic Panel (Routine) Timeframe: 5 Days Location: Determined by Patient Ordered By: Lorena Villalba Date of admission: 08/07/25 21:09 Primary Care Provider: Morgan,Bessie Soliz Admitting Provider: Nicolasa Espinoza Attending physician on admission: Nicolasa Espinoza Condition: Stable
[2025-08-10 14:00] VITALS: BP 102/62; PULSE 70; RESP 16; TEMP 36.6; O2SAT 97
[2025-08-10 16:24] VITALS: O2SAT 97
== END 2025-08-10 16:10 | disposition home or self-care (01) ==
LOC: ANHED 20:40 → ANH3MEDSUR 08-08 07:04
PROVIDERS: Physician Assistant; Admitting Provider Internal Medicine; PCP Midwife; Visit Provider Internal Medicine
DX: I50.33 Acute on chronic diastolic (congestive) heart failure (principal); I27.20 Pulmonary hypertension, unspecified; J96.00 Acute respiratory failure, unspecified whether with hypoxia or hypercapnia; E11.65 Type 2 diabetes mellitus with hyperglycemia; I34.0 Nonrheumatic mitral (valve) insufficiency; I25.10 Atherosclerotic heart disease of native coronary artery without angina pectoris; Z79.4 Long term (current) use of insulin; F41.8 Other specified anxiety disorders; E11.42 Type 2 diabetes mellitus with diabetic polyneuropathy; E78.5 Hyperlipidemia, unspecified; I11.0 Hypertensive heart disease with heart failure; Z95.0 Presence of cardiac pacemaker; I25.2 Old myocardial infarction
CPT/HCPCS: 36415; 71046; 80048; 80053; 82948; 83735; 83880; 84484; 85025; 85027; 85610; 85730; 93005; 94762; 96372; 96374; 96375; 99285; A9270; C8929; G0378; G0379; J1650; J1815; J1938; J3475; Q9957